=== PATIENT | female | born 1945 | race African-American/Black ===

== ENCOUNTER 2017-05-14 15:52 | Emergency (ER) | payer OTHER ==
[2017-05-14 16:43] LABS: Absolute Lymphocytes (CBC) 0.7 K/uL (0.7-4.9); Absolute Monocytes 0.6 K/uL (0.1-1.3); Basophils % 1.1 % (0-1.3); Eosinophils % 2.6 % (0-4.4); Hematocrit 38.8 % (36.0-45.0); Lymphocytes % 16.5 % (15.3-44.8); MCH 30.5 pg (27.0-35.0); MCV 93.1 fL (80-100); MPV 10.7 fL (7.6-11.3); Monocytes % 13.7 % (3.3-12.3); RBC Red Blood Cell Count 4.17 M/uL (3.86-4.86)
[2017-05-14 16:47] LABS: Potassium 4.5 mEq/L (3.6-5.0)
[2017-05-14 16:50] LABS: Albumin 4.1 g/dL (3.2-5.5); Bilirubin Total 0.5 mg/dL (0.3-1.2); Protein, Total 7.4 g/dL (6.0-8.3); Uric Acid 2.1 mg/dL (2.6-8.0)
--- NOTE | 2017-05-14 17:33 | ER ---
Nurse's Notes [facility] Name: Sangita Hendrix Age: 71 yrs Sex: Female : 1945 Arrival Date: 05/14/2017 Time: 15:53 Bed 12 Private MD: Nam Alexander R Diagnosis: Inflammatory Arthritis. Left foot pain. Presentation: 05/14 15:55 Presenting complaint: Patient states: "I have swollen foot pain. My daughter says I lk1 have gout.". Transition of care: patient was not received from another setting of care. Onset of symptoms was April 30, 2017. Care prior to arrival: None. 15:55 Method Of Arrival: Ambulatory lk1 15:55 Acuity: MADISYN 3 lk1 Triage Assessment: 15:57 General: Appears in no apparent distress. Behavior is calm, cooperative, appropriate lk1 for age. Pain: Complains of pain in left foot Pain currently is 10 out of 10 on a pain scale. Historical: - Allergies: 15:57 PENICILLINS; lk1 - PMHx: 15:57 BRADYCARDIA; CHF; Diabetes - IDDM; Gout; Pacemaker; lk1 - PSHx: 15:57 Hysterectomy; back surgery; lk1 - Immunization history:: Adult Immunizations up to date. - Social history:: Smoking status: Patient/guardian denies using tobacco. Screenin:27 Abuse screen: Denies threats or abuse. Denies injuries from another. Nutritional aj1 screening: No deficits noted. Tuberculosis screening: No symptoms or risk factors identified. 17:58 Fall Risk None identified. aj1 Assessment: 16:27 General: Appears in no apparent distress. uncomfortable, Behavior is calm, cooperative, aj1 appropriate for age. Pain: Complains of pain in left foot Pain does not radiate. Pain currently is 10 out of 10 on a pain scale. Quality of pain is described as aching, sharp. Neuro: Level of Consciousness is awake, alert, obeys commands, Oriented to person, place, time, situation, Speech is normal, Facial symmetry appears normal. Cardiovascular: Patient's skin is warm and dry. Respiratory: Airway is patent Respiratory effort is even, unlabored, Respiratory pattern is regular, symmetrical. GI: No signs and/or symptoms were reported involving the gastrointestinal system. : No signs and/or symptoms were reported regarding the genitourinary system. EENT: No signs and/or symptoms were reported regarding the EENT system. Derm: Skin is normal. Musculoskeletal: Capillary refill < 3 seconds, in left toes. Range of motion: intact in all extremities. 17:22 Reassessment: Patient appears in no apparent distress at this time. No changes from aj1 previously documented assessment. Patient and/or family updated on plan of care and expected duration. Pain level reassessed. Patient is alert, oriented x 3, equal unlabored respirations, skin warm/dry/pink. Vital Signs: 15:57 BP 153 / 69; Pulse 79; Resp 16; Temp 97.0(TE); Pulse Ox 96% on R/A; Weight 81.65 kg lk1 (R); Height 5 ft. 5 in. (165.10 cm) (R); Pain 10/10; 17:21 BP 165 / 72; Pulse 82; Resp 18; Pulse Ox 95% on R/A; aj1 15:57 Body Mass Index 29.95 (81.65 kg, 165.10 cm) lk1 ED Course: 15:53 Patient arrived in ED. as 15:53 Nam Alexander MD is Private Physician. as 15:56 Triage completed. lk1 16:00 Arm band placed on right wrist. lk1 16:01 Kev Russ MD is Attending Physician. ps1 16:02 Rita Ray, ANAMARIA is Primary Nurse. aj1 16:25 Initial lab(s) drawn, by ms, sent to lab. Inserted saline lock: 22 gauge in left iw antecubital area, using aseptic technique. Blood collected. 16:27 Patient has correct armband on for positive identification. aj1 16:27 No provider procedures requiring assistance completed. aj1 17:31 Nam Alexander MD is Referral Physician. ps1 17:58 Patient did not have IV access during this emergency room visit. aj1 19:10 IV discontinued, intact, bleeding controlled, No redness/swelling at site. Pressure tl3 dressing applied. Administered Medications: No medications were administered Outcome: 17:32 Discharge ordered by . ps1 17:58 Discharged to home ambulatory. aj1 17:58 Condition: good 17:58 Discharge instructions given to patient, Instructed on discharge instructions, follow up and referral plans. medication usage, Demonstrated understanding of instructions, follow-up care, medications, Prescriptions given X 2. 17:59 Patient left the ED. aj1 Signatures: Rita Ray RN RN aj1 Brigitte Wilkins Irene, RN RN Meagan Garay, RN RN lk1 Kev Russ MD MD ps1 Shanelle Hyatt RN RN tl3
--- NOTE | 2017-05-14 17:33 | EDPHYS ---
Physician Documentation [facility] Name: Sangita Hendrix Age: 71 yrs Sex: Female : 1945 Arrival Date: 05/14/2017 Time: 15:53 Bed 12 Private MD: Nam Alexander R ED Physician Kev Russ HPI: 05/15 16:48 This 71 yrs old Black Female presents to ER via Ambulatory with complaints of Feet ps1 Swelling. 16:48 The patient presents with pain, that is chronic, swelling, tenderness. The complaints ps1 affect the left foot. Context: resulted from a chronic condition, the patient is able to ambulate, Problem is a result from a previous injury: No. hx of reported gout. Does not have tophaceous growths. Has intermittent pain but this episode has been going on for a couple of weeks. She went to her primary care physician and wrote for allopurinol for acute attack. States that it has not worked and she needs something else. . Treatment prior to arrival includes: Allopurinol. Severity of symptoms: At their worst the symptoms were moderate. The patient has experienced similar episodes in the past. The patient has been recently seen by a physician: the patient's primary care provider. Historical: - Allergies: 05/14 15:57 PENICILLINS; lk1 - PMHx: 15:57 BRADYCARDIA; CHF; Diabetes - IDDM; Gout; Pacemaker; lk1 - PSHx: 15:57 Hysterectomy; back surgery; lk1 - Immunization history:: Adult Immunizations up to date. - Social history:: Smoking status: Patient/guardian denies using tobacco. ROS: 05/15 16:48 Constitutional: Negative for fever, chills, and weight loss, Eyes: Negative for injury, ps1 pain, redness, and discharge, Cardiovascular: Negative for chest pain, palpitations, and edema, Respiratory: Negative for shortness of breath, cough, wheezing, and pleuritic chest pain, Abdomen/GI: Negative for abdominal pain, nausea, vomiting, diarrhea, and constipation, Back: Negative for injury and pain, Skin: Negative for injury, rash, and discoloration, Neuro: Negative for headache, weakness, numbness, tingling, and seizure. MS/extremity: Positive for swelling, tenderness, warmth, of the dorsum of left foot. Exam: 16:48 Constitutional: This is a well developed, well nourished patient who is awake, alert, ps1 and in no acute distress. Head/Face: Normocephalic, atraumatic. Eyes: Pupils equal round and reactive to light, extra-ocular motions intact. Lids and lashes normal. Conjunctiva and sclera are non-icteric and not injected. ENT: Nares patent. No nasal discharge, no septal abnormalities noted. Tympanic membranes are normal and external auditory canals are clear. Oropharynx with no redness, swelling, or masses, exudates, or evidence of obstruction, uvula midline. Mucous membranes moist. Cardiovascular: Regular rate and rhythm. No gallops, murmurs, or rubs. Normal PMI, no JVD. No pulse deficits. Respiratory: Lungs have equal breath sounds bilaterally, clear to auscultation and percussion. No rales, rhonchi or wheezes noted. No increased work of breathing, no retractions or nasal flaring. Abdomen/GI: Soft, non-tender, with normal bowel sounds. No distension or tympany. No guarding or rebound. No evidence of tenderness throughout. Skin: Warm, dry with normal turgor. Normal color with no rashes, no lesions, and no evidence of cellulitis. 16:48 Musculoskeletal/extremity: Extremities: grossly normal except: noted in the dorsum of left foot: erythema, pain, swelling, tenderness. Vital Signs: 05/14 15:57 BP 153 / 69; Pulse 79; Resp 16; Temp 97.0(TE); Pulse Ox 96% on R/A; Weight 81.65 kg lk1 (R); Height 5 ft. 5 in. (165.10 cm) (R); Pain 10/10; 17:21 BP 165 / 72; Pulse 82; Resp 18; Pulse Ox 95% on R/A; aj1 15:57 Body Mass Index 29.95 (81.65 kg, 165.10 cm) lk1 MDM: 16:08 Patient medically screened. ps1 05/15 16:48 Data reviewed: vital signs, nurses notes. ED course: labs and imaging reviewed. No ps1 underlying infectious etiology or emergent condition. Should follow up with PCP for on going care and plan of treatment for acute attacks as well as maintenance medication regimens. Stable for discharge. . 05/14 16:08 Order name: CBC with Diff; Complete Time: 17:30 ps1 05/14 16:08 Order name: CMP; Complete Time: 16:51 ps1 05/14 16:08 Order name: Uric Acid; Complete Time: 16:51 ps1 05/14 16:08 Order name: ESR; Complete Time: 17:30 ps1 Administered Medications: No medications were administered Disposition: 05/14/17 17:32 Discharged to Home. Impression: Inflammatory Arthritis. Left foot pain. . - Condition is Stable. - Discharge Instructions: Arthritis, Nonspecific. - Prescriptions for Anaprox DS 550 mg Oral Tablet - take 1 tablet by ORAL route every 12 hours As needed; 20 tablet. Medrol (Nicholas) 4 mg Oral Tablets, Dose Pack - take 1 tablet by ORAL route as directed - follow package instructions; 1 packet. - Medication Reconciliation Form, Thank You Letter, Antibiotic Education, Prescription Opioid Use form. - Follow up: Nam Alexander MD; When: As needed; Reason: Recheck today's complaints, Continuance of care, Re-evaluation by your physician. Follow up: Emergency Department; When: As needed; Reason: Fever > 102 F, Worsening of condition. - Problem is an ongoing problem. - Symptoms have worsened. Signatures: Dispatcher [employer] Rita Mg RN RN aj1 Meagan Paredes RN RN lk1 Kev Russ MD MD ps1
[2017-05-14 18:08] VITALS: TEMP 98.2
[2017-05-14 18:09] VITALS: BP 208/88; O2SAT 99
== END 2017-05-14 17:59 | disposition home or self-care (01) ==
LOC: ER 15:52
DX: M13.872 Other specified arthritis, left ankle and foot; Z88.0 Allergy status to penicillin; Z95.0 Presence of cardiac pacemaker; I50.9 Heart failure, unspecified
CPT/HCPCS: 36415; 80053; 84550; 85025; 85652; 99283

== ENCOUNTER 2017-05-29 19:31 | Observation (INO) | payer OTHER ==
[2017-05-29] MEDS ORDERED: FAMOTIDINE 20 MG/2 ML VIAL IV ONE (20:52)
[2017-05-29] MEDS ORDERED: NA CHLORIDE 0.9% 1,000 ML ONE (20:52)
[2017-05-29] MEDS ORDERED: ONDANSETRON 4 MG/2 ML VIAL ONE (20:52)
[2017-05-29 21:20] LABS: Absolute Lymphocytes (CBC) 0.3 K/uL (0.7-4.9); Absolute Monocytes 0.5 K/uL (0.1-1.3); Absolute Neutrophil 5.6 K/uL (1.8-8.0); Basophils % 0.5 % (0-1.3); Eosinophils % 1.2 % (0-4.4); Hematocrit 41.1 % (36.0-45.0); MCH 30.6 pg (27.0-35.0); MCV 93.2 fL (80-100); MPV 10.8 fL (7.6-11.3); Monocytes % 7.8 % (3.3-12.3); RBC Red Blood Cell Count 4.41 M/uL (3.86-4.86)
[2017-05-29 21:24] LABS: Protime INR 1.11
--- NOTE | 2017-05-29 21:51 | RAD REPORT ---
EXAM DESCRIPTION: CT - Abdomen Pelvis Wo Contrast - 05/29/2017 9:27 pm CLINICAL HISTORY: Abdominal pain with nausea, vomiting and diarrhea COMPARISON: 2016 TECHNIQUE: Computed axial tomography of the abdomen and pelvis was obtained. IV and oral contrast we re not requested. All CT scans are performed using dose optimization technique as appropriate and may include automated exposure control or mA/KV adjustment according to patient size. FINDINGS: The evaluation of solid organs, vessels and bowel is limited secondary to the lack of con trast administration. The liver, spleen, pancreas, adrenals and kidneys appear grossly normal. There is no evidence of diverticulitis. A hysterectomy has been performed. IMPRESSION: No acute abnormality is displayed.
--- NOTE | 2017-05-29 21:53 | RAD REPORT ---
EXAM DESCRIPTION: Mis Single View05/29/2017 9:22 pm CLINICAL HISTORY: abd pain COMPARISON: April 2017 FINDINGS: The lungs appear clear of acute infiltrate. The heart is mildly enlarged. Pacemaker lead is in place IMPRESSION: No acute abnormalities displayed
[2017-05-29 21:55] LABS: Platelet Estimate ADEQ; Potassium 4.6 mEq/L (3.6-5.0); Urine White Blood Cell Casts OK
[2017-05-29 21:56] LABS: Anisocytosis SLIGHT; Blood Morphology Comment NOTED (NOT SEEN); Poikilocytosis SLIGHT
[2017-05-29 22:02] LABS: Albumin 4.1 g/dL (3.2-5.5); Bilirubin Direct 0.1 mg/dL (0-0.2); Bilirubin Total 0.6 mg/dL (0.3-1.2); Magnesium 2.2 mg/dL (1.8-2.5); Protein, Total 7.2 g/dL (6.0-8.3)
[2017-05-29 22:05] LABS: CKMB Creatine Kinase MB 1.6 ng/ml (0.3-4.0)
[2017-05-29 22:05] LABS: Urine Blood TRACE (NEG); Urine Glucose NEGATIVE (NEG); Urine Protein 2+ (NEG); Urine pH 6.5 (5.0-7.0)
--- NOTE | 2017-05-29 22:26 | EDPHYS ---
Physician Documentation [facility] Name: Sangita Hendrix Age: 71 yrs Sex: Female : 1945 Arrival Date: 05/29/2017 Time: 19:34 Bed 24 Private MD: Nam Alexander R ED Physician Sukumar Correa HPI: 05/29 20:45 This 71 yrs old Black Female presents to ER via Ambulatory with complaints of Headache, ranjan Vomiting/Diarrhea. 20:45 The patient complains of pain to the forehead. ranjan Historical: - Allergies: 19:42 PENICILLINS; aa1 - Home Meds: 19:42 allopurinol 300 mg Oral tab 1 tab once daily [Active]; Coreg 6.25 mg Oral tab 1 tab aa1 [Active]; Lantus Sub-Q 100 unit/mL [Active]; Lasix 40 mg Oral tab 1 tab 2 times per day [Active]; potassium chloride 20 mEq Oral TbER 1 tab once daily [Active]; - PMHx: 19:42 BRADYCARDIA; CHF; Diabetes - IDDM; Gout; Pacemaker; aa1 - PSHx: 19:42 Hysterectomy; back surgery; aa1 - Immunization history:: Flu vaccine is up to date. - Social history:: Smoking status: Patient/guardian denies using tobacco. ROS: 20:46 Constitutional: Negative for fever, chills, and weight loss, Eyes: Negative for injury, ranjan pain, redness, and discharge, ENT: Negative for injury, pain, and discharge, Neck: Negative for injury, pain, and swelling, Cardiovascular: Negative for chest pain, palpitations, and edema, Respiratory: Negative for shortness of breath, cough, wheezing, and pleuritic chest pain, Back: Negative for injury and pain, : Negative for injury, bleeding, discharge, and swelling, MS/Extremity: Negative for injury and deformity, Skin: Negative for injury, rash, and discoloration, Neuro: Negative for headache, weakness, numbness, tingling, and seizure, Psych: Negative for depression, anxiety, suicide ideation, homicidal ideation, and hallucinations, Allergy/Immunology: Negative for hives, rash, and allergies, Endocrine: Negative for neck swelling, polydipsia, polyuria, polyphagia, and marked weight changes, Hematologic/Lymphatic: Negative for swollen nodes, abnormal bleeding, and unusual bruising. 20:46 Abdomen/GI: Negative for abdominal pain, nausea and vomiting, diarrhea. Exam: 20:46 Constitutional: This is a well developed, well nourished patient who is awake, alert, ranjan and in no acute distress. Head/Face: Normocephalic, atraumatic. Eyes: Pupils equal round and reactive to light, extra-ocular motions intact. Lids and lashes normal. Conjunctiva and sclera are non-icteric and not injected. Cornea within normal limits. Periorbital areas with no swelling, redness, or edema. ENT: Nares patent. No nasal discharge, no septal abnormalities noted. Tympanic membranes are normal and external auditory canals are clear. Oropharynx with no redness, swelling, or masses, exudates, or evidence of obstruction, uvula midline. Mucous membranes moist. Neck: Trachea midline, no thyromegaly or masses palpated, and no cervical lymphadenopathy. Supple, full range of motion without nuchal rigidity, or vertebral point tenderness. No Meningismus. Chest/axilla: Normal chest wall appearance and motion. Nontender with no deformity. No lesions are appreciated. Cardiovascular: Regular rate and rhythm with a normal S1 and S2. No gallops, murmurs, or rubs. Normal PMI, no JVD. No pulse deficits. Respiratory: Lungs have equal breath sounds bilaterally, clear to auscultation and percussion. No rales, rhonchi or wheezes noted. No increased work of breathing, no retractions or nasal flaring. Back: No spinal tenderness. No costovertebral tenderness. Full range of motion. Female : Normal external genitalia. Skin: Warm, dry with normal turgor. Normal color with no rashes, no lesions, and no evidence of cellulitis. MS/ Extremity: Pulses equal, no cyanosis. Neurovascular intact. Full, normal range of motion. Neuro: Awake and alert, GCS 15, oriented to person, place, time, and situation. Cranial nerves II-XII grossly intact. Motor strength 5/5 in all extremities. Sensory grossly intact. Cerebellar exam normal. Normal gait. Psych: Awake, alert, with orientation to person, place and time. Behavior, mood, and affect are within normal limits. 20:46 Abdomen/GI: Inspection: distension, Bowel sounds: normal, Palpation: mild abdominal tenderness, in the epigastric area, right upper quadrant and left upper quadrant, Liver: no appreciated palpable abnormalities, Hernia: not appreciated. Vital Signs: 19:42 BP 137 / 60; Pulse 66; Resp 18; Temp 98.3; Pulse Ox 97% on R/A; Weight 86.18 kg; Height aa1 5 ft. 4 in. (162.56 cm); Pain 10/10; 21:49 BP 128 / 62; Pulse 60; Resp 18; Pulse Ox 99% on R/A; Pain 0/10; ao 22:58 BP 136 / 65; Pulse 67; Resp 16; Pulse Ox 100% ; ao 19:42 Body Mass Index 32.61 (86.18 kg, 162.56 cm) aa1 MDM: 20:38 Patient medically screened. [facility] 20:47 Data reviewed: vital signs, nurses notes, lab test result(s), EKG, radiologic studies, [facility] CT scan, plain films. 05/29 20:45 Order name: Basic Metabolic Panel; Complete Time: 22:22 [facility] 05/29 20:45 Order name: BNP [facility] 05/29 20:45 Order name: CBC with Diff; Complete Time: 22:22 [facility] 05/29 20:45 Order name: Ckmb; Complete Time: 22:22 [facility] 05/29 20:45 Order name: CPK; Complete Time: 22:22 [facility] 05/29 20:45 Order name: LFT's; Complete Time: 22:22 [facility] 05/29 20:45 Order name: Magnesium; Complete Time: 22:22 [facility] 05/29 20:45 Order name: PT-INR; Complete Time: 22:22 [facility] 05/29 20:45 Order name: Ptt, Activated; Complete Time: 22:22 [facility] 05/29 20:45 Order name: Troponin (emerg Dept Use Only); Complete Time: 22:22 [facility] 05/29 20:45 Order name: Lipase; Complete Time: 22:22 [facility] 05/29 20:45 Order name: Urine Culture [facility] 05/29 20:45 Order name: Blood Culture Adult (2) [facility] 05/29 21:27 Order name: CBC Smear Scan; Complete Time: 22:22 [facility] 05/29 20:45 Order name: XRAY Chest (1 view); Complete Time: 22:22 [facility] 05/29 20:45 Order name: EKG; Complete Time: 20:46 [facility] 05/29 20:45 Order name: CT Abd/Pelvis - Without Cont; Complete Time: 22:22 [facility] 05/29 21:52 Order name: Urine Dipstick--Ancillary (enter results); Complete Time: 22:22 05/29 22:31 Order name: Basic Metabolic Panel [facility] 05/29 22:31 Order name: Basic Metabolic Panel [facility] 05/29 22:31 Order name: CBC with Automated Diff [facility] 05/29 22:31 Order name: CBC with Automated Diff [facility] 05/29 22:31 Order name: Lipase [facility] 05/29 22:31 Order name: Lipase [facility] 05/29 22:31 Order name: Liver (Hepatic) Function [facility] 05/29 22:31 Order name: Liver (Hepatic) Function [facility] 05/29 20:45 Order name: Cardiac monitoring; Complete Time: 21:06 [facility] 05/29 20:45 Order name: EKG - Nurse/Tech; Complete Time: 21:06 [facility] 05/29 20:45 Order name: IV Saline Lock; Complete Time: 21:06 [facility] 05/29 20:45 Order name: Labs collected and sent; Complete Time: 21: [facility] 05/29 20:45 Order name: O2 Per Protocol; Complete Time: 21:07 [facility] 05/29 20:45 Order name: O2 Sat Monitoring; Complete Time: 21: [facility] 05/29 20:45 Order name: Urine Dipstick-Ancillary (obtain specimen); Complete Time: 21:50 [facility] 05/29 22:31 Order name: NPO EDTN Administered Medications: 21:08 Drug: NS 0.9% 500 ml Route: IV; Rate: bolus; Site: left antecubital; ao 22:00 Follow up: IV Status: Completed infusion; IV Intake: 500ml ao 21:10 Drug: Zofran 4 mg Route: IVP; Site: left antecubital; ao 22:26 Follow up: Response: No adverse reaction ao 21:10 Drug: Pepcid 20 mg Route: IVP; Site: left antecubital; ao 22:26 Follow up: Response: No adverse reaction ao 22:27 Drug: NS 0.9% 1000 ml Route: IV; Rate: 125 ml/hr; Site: left antecubital; ao 23:00 Follow up: IV Status: Infusion continued upon admission ao Disposition: 05/29/17 22:25 Hospitalization ordered by Nam Alexander for Observation. Preliminary diagnosis are Vomiting, Diarrhea, unspecified, Abdominal tenderness, Unspecified kidney failure, Type 2 diabetes mellitus. - Bed requested for Telemetry/MedSurg (observation). - Status is Observation. ao - Condition is Fair. - Problem is new. - Symptoms have improved. UTI on Admission? No Signatures: Dispatcher [employer] EDMS Brittni Burton RN Michelle Cox RN RN aa1 Sukumar Correa MD MD cha Ortiz, Alex RN ANAMARIA ao
--- NOTE | 2017-05-29 22:26 | ER ---
Nurse's Notes [facility] Name: Sangita Hendrix Age: 71 yrs Sex: Female : 1945 Arrival Date: 05/29/2017 Time: 19:34 Bed 24 Private MD: Nam Alexander R Diagnosis: Vomiting;Diarrhea, unspecified;Abdominal tenderness;Unspecified kidney failure;Type 2 diabetes mellitus Presentation: 05/29 19:40 Presenting complaint: Patient states: N/V/D since 1600 this afternoon. Reports vomited aa1 x 2. Also c/o CULLEN but states she has not taken anything OTC for it yet. Transition of care: patient was not received from another setting of care. Onset of symptoms was May 29, 2017. Care prior to arrival: None. 19:40 Method Of Arrival: Ambulatory aa1 19:40 Acuity: MADISYN 3 aa1 Triage Assessment: 19:42 General: Appears in no apparent distress. comfortable, Behavior is calm, cooperative, aa1 appropriate for age. 20:18 Headache History: The patient has had previous headaches. Pain: Pain currently is 8 out ao of 10 on a pain scale. Pain began 4 hours ago. Also complains of no other associated symptoms. Neuro: Level of Consciousness is awake, alert, obeys commands. Historical: - Allergies: 19:42 PENICILLINS; aa1 - Home Meds: 19:42 allopurinol 300 mg Oral tab 1 tab once daily [Active]; Coreg 6.25 mg Oral tab 1 tab aa1 [Active]; Lantus Sub-Q 100 unit/mL [Active]; Lasix 40 mg Oral tab 1 tab 2 times per day [Active]; potassium chloride 20 mEq Oral TbER 1 tab once daily [Active]; - PMHx: 19:42 BRADYCARDIA; CHF; Diabetes - IDDM; Gout; Pacemaker; aa1 - PSHx: 19:42 Hysterectomy; back surgery; aa1 - Immunization history:: Flu vaccine is up to date. - Social history:: Smoking status: Patient/guardian denies using tobacco. Screenin:18 Abuse screen: Denies threats or abuse. Denies injuries from another. Nutritional ao screening: No deficits noted. Tuberculosis screening: No symptoms or risk factors identified. Fall Risk None identified. Assessment: 20:19 General: Appears in no apparent distress. uncomfortable, Behavior is appropriate for ao age, anxious. Pain: Complains of pain in heache. Neuro: Level of Consciousness is awake, obeys commands, Oriented to person, place, time, situation, Manager Of Product are equal bilaterally Moves all extremities. Speech is normal. Cardiovascular: Patient's skin is warm and dry. Respiratory: Airway is patent Respiratory effort is even, unlabored, Respiratory pattern is regular, symmetrical. GI: Abdomen is non-distended. : No signs and/or symptoms were reported regarding the genitourinary system. EENT: No signs and/or symptoms were reported regarding the EENT system. Derm: Skin is intact. Musculoskeletal: Circulation, motion, and sensation intact. Range of motion: intact in all extremities. 21:49 Reassessment: Patient appears in no apparent distress at this time. Patient and/or ao family updated on plan of care and expected duration. Pain level reassessed. Patient is alert, oriented x 3, equal unlabored respirations, skin warm/dry/pink. 22:58 Reassessment: Patient appears in no apparent distress at this time. Patient and/or ao family updated on plan of care and expected duration. Pain level reassessed. Patient is alert, oriented x 3, equal unlabored respirations, skin warm/dry/pink. Waiting on room assignment. Vital Signs: 19:42 BP 137 / 60; Pulse 66; Resp 18; Temp 98.3; Pulse Ox 97% on R/A; Weight 86.18 kg; Height aa1 5 ft. 4 in. (162.56 cm); Pain 10/10; 21:49 BP 128 / 62; Pulse 60; Resp 18; Pulse Ox 99% on R/A; Pain 0/10; ao 22:58 BP 136 / 65; Pulse 67; Resp 16; Pulse Ox 100% ; ao 19:42 Body Mass Index 32.61 (86.18 kg, 162.56 cm) aa1 ED Course: 19:34 Patient arrived in ED. as 19:34 Nam Alexander MD is Private Physician. as 19:41 Triage completed. aa1 19:42 Arm band placed on left wrist. aa1 20:18 Paul Joaquin, RN is Primary Nurse. ao 20:18 Patient has correct armband on for positive identification. Pulse ox on. NIBP on. ao 20:38 Sukumar Correa MD is Attending Physician. ranjan 21:00 EKG done, by ED staff, reviewed by Sukumar Correa MD. cc 21:21 X-ray completed. Portable x-ray completed in exam room. Patient tolerated procedure kc2 well. 21:22 XRAY Chest (1 view) In Process Unspecified. EDMS 21:[address] via stretcher. nj 21:27 CT Abd/Pelvis - Without Cont In Process Unspecified. EDMS 21:27 CT completed. Patient tolerated procedure well. nj 21:27 Patient moved back from CT. nj 21:35 Second set of blood cultures drawn by me, Urine collected: clean catch specimen, clear. cc 21:45 Inserted saline lock: 20 gauge in left antecubital area, using aseptic technique. Blood ao collected. 22:24 Nam Alexander MD is Hospitalizing Provider. [facility] 05/30 00:11 No provider procedures requiring assistance completed. Patient admitted, IV remains in ao place. intact, bleeding controlled, No redness/swelling at site. Pressure dressing applied. Administered Medications: 05/29 21:08 Drug: NS 0.9% 500 ml Route: IV; Rate: bolus; Site: left antecubital; ao 22:00 Follow up: IV Status: Completed infusion; IV Intake: 500ml ao 21:10 Drug: Zofran 4 mg Route: IVP; Site: left antecubital; ao 22:26 Follow up: Response: No adverse reaction ao 21:10 Drug: Pepcid 20 mg Route: IVP; Site: left antecubital; ao 22:26 Follow up: Response: No adverse reaction ao 22:27 Drug: NS 0.9% 1000 ml Route: IV; Rate: 125 ml/hr; Site: left antecubital; ao 23:00 Follow up: IV Status: Infusion continued upon admission ao Intake: 22:00 IV: 500ml; Total: 500ml. ao Outcome: 22:25 Decision to Hospitalize by Provider. [facility] 05/30 00:12 Admitted to Tele accompanied by tech, room 424, with chart, Report called to jose armando Do LVN Condition: stable 00:13 Patient left the ED. ao Signatures: Dispatcher [employer] EDMS Michelle Almendarez RN RN aa1 Sukumar Correa MD MD cha Martinez, Amelia as Christian, Chelsea cc Ortiz, Alex, RN RN ao Carr, Kelsie kc2 Anatoliy Craft
[2017-05-29] MEDS ORDERED: ACETAMINOPHEN 500 MG TAB PO PRN (22:28)
[2017-05-29] MEDS ORDERED: ONDANSETRON 4 MG/2 ML VIAL IV PRN (22:28)
[2017-05-29] MEDS ORDERED: FENTANYL CITR 100 MCG/2 ML IV PRN (22:29)
[2017-05-30] MEDS: NA CHLORIDE 0.9% 1,000 ML IV SCH ×2 (00:42→07:00)
[2017-05-30 00:53] VITALS: O2SAT 100
[2017-05-30 01:03] VITALS: BMI 33.8
[2017-05-30 05:37] LABS: Absolute Lymphocytes (CBC) 0.5 K/uL (0.7-4.9); Absolute Monocytes 0.6 K/uL (0.1-1.3); Absolute Neutrophil 4.8 K/uL (1.8-8.0); Basophils % 0.4 % (0-1.3); Eosinophils % 1.7 % (0-4.4); Hematocrit 39.3 % (36.0-45.0); Lymphocytes % 7.7 % (15.3-44.8); MCH 30.4 pg (27.0-35.0); MCV 94.3 fL (80-100); MPV 11.2 fL (7.6-11.3); Monocytes % 10.4 % (3.3-12.3); RBC Red Blood Cell Count 4.17 M/uL (3.86-4.86)
[2017-05-30 06:11] LABS: Albumin 3.6 g/dL (3.2-5.5); Bilirubin Direct 0.1 mg/dL (0-0.2); Bilirubin Total 0.6 mg/dL (0.3-1.2); Potassium 4.4 mEq/L (3.6-5.0); Protein, Total 6.5 g/dL (6.0-8.3)
--- NOTE | 2017-05-30 07:02 | EKG ---
Test Date: 2017-05-29 Test Time: 21:02:17 Director Of Home Health Services: ELDON MEASUREMENT RESULTS: Intervals: Rate: 67 MA: 198 QRSD: 110 QT: 478 QTc: 505 [place]: P: 69 MA: 198 QRS: -11 T: 87 INTERPRETIVE STATEMENTS: Normal sinus rhythm Septal infarct, age undetermined Abnormal ECG Compared to ECG 04/25/2017 20:00:11 No significant changes Electronically Signed On 05-30-17 07:01:29 CDT by Geraldo Callahan
[2017-05-30] MEDS ORDERED: HYDROCODONE/APAP 7.5/325 MG TAB PO PRN (08:41)
[2017-05-30] MEDS ORDERED: GLUCAGON 1 MG/VIAL IM PRN (08:52)
[2017-05-30] MEDS ORDERED: D50W 25 GM/50 ML SYRINGE IV PRN (08:52)
[2017-05-30] MEDS ORDERED: FUROSEMIDE 40 MG TABLET PO SCH (09:00)
[2017-05-30] MEDS ORDERED: FAMOTIDINE 20 MG/2 ML VIAL IV SCH (09:00)
[2017-05-30] MEDS ORDERED: CARVEDILOL 6.25 MG TAB PO SCH (09:00)
[2017-05-30] MEDS ORDERED: AMIODARONE HCL 200 MG TAB PO SCH (09:00)
[2017-05-30] MEDS ORDERED: SACUBITRIL/VALSARTAN 24/26 MG TAB PO SCH (09:00)
[2017-05-30] MEDS ORDERED: ALLOPURINOL 300 MG TAB PO SCH (09:00)
[2017-05-30] MEDS ORDERED: DONEPEZIL HCL 5 MG TAB PO SCH (09:00)
[2017-05-30] MEDS ORDERED: POTASSIUM CL SA 10 MEQ TAB PO SCH (09:00)
[2017-05-30] MEDS ORDERED: FAMOTIDINE 20 MG TAB PO SCH (09:45)
[2017-05-30] MEDS: INSULIN -REGULAR HUMAN 50 UNIT/0.5 ML ML SQ SCH ×2 (11:30→16:30)
[2017-05-30 16:34] VITALS: BP 149/50; TEMP 97.4
--- NOTE | 2017-05-31 02:25 | HP ---
Date of Admission: 05/29/2017 Chief Complaint: Nausea, vomiting, and diarrhea. History Of Present Illness: A 71-year-old female, who was brought to the emergency room. She was ev aluated with a CAT scan and blood work and admitted for observation. The patient denied any history of vomiting of blood. No history of blood in her stools. No history of fever, chills, or rigors. Past Medical History: Extensive, includes history of severe congestive heart failure, type 2 diabete s, hypertension, and gout. Family History: Hypertension. Personal History: Nonsmoker. Allergies: PENICILLIN. Review of Systems: No history of fever, chills, rigors, or chest pain. Physical Examination: General: Revealed a 71-year-old female, anxious. HEENT: Otherwise negative. Neck: Supple. JVD negative. Chest: Clear. Heart: Occasional irregularity noted. Abdomen: Soft. Bowel sounds present. Extremities: No edema. Laboratory Data: BUN 28, creatinine 1.47. White count normal. CAT scan of the abdomen, no acute fi ndings. Assessment: 1.Gastroenteritis. 2.Chronic renal insufficiency. 3.Congestive heart failure. 4.Type 2 diabetes. 5.Gout. Plan: The patient received some IV fluids. She is already feeling better. She is tolerating diet. She will be discharge today. RODO Voice ID: [id number]
== END 2017-05-30 17:00 | disposition home or self-care (01) ==
LOC: ER 19:31 → 4TH 23:58
PROVIDERS: ADMIT Internal Medicine; ATTEND Internal Medicine
DX: K52.9 Noninfective gastroenteritis and colitis, unspecified (principal); I13.0 Hypertensive heart and chronic kidney disease with heart failure and stage 1 through stage 4 chronic kidney disease, or unspecified chronic kidney disease; E11.22 Type 2 diabetes mellitus with diabetic chronic kidney disease; N18.9 Chronic kidney disease, unspecified; I50.9 Heart failure, unspecified; M10.9 Gout, unspecified; Z88.0 Allergy status to penicillin
CPT/HCPCS: 36415; 71045; 74176; 80048 ×2; 80076 ×2; 81003; 82550; 82553; 82962 ×3; 83690 ×2; 83735; 83880; 84484; 85025 ×2; 85610; 85730; 87040 ×2; 87086; 87088; 93005; 96361; 96374; 96375; 99285; G0378 ×2; J2405; J3010; J7030 ×2

== ENCOUNTER 2017-10-29 15:38 | Emergency (ER) | payer OTHER ==
[2017-10-29] MEDS ORDERED: ONDANSETRON 4 MG (ODT) TAB ONE (16:18)
[2017-10-29] MEDS ORDERED: FLUCONAZOLE 100 MG TAB ONE (16:18)
[2017-10-29] MEDS ORDERED: HYDROCODONE/APAP 5/325 MG TAB ONE (16:18)
--- NOTE | 2017-10-29 16:47 | RAD REPORT ---
EXAM DESCRIPTION: RAD - Foot Left 3 View - 10/29/2017 4:35 pm CLINICAL HISTORY: SWELLING COMPARISON: Foot Left 3 View dated 04/13/2016 FINDINGS: Diffuse osteopenia is noted. Small sclerotic erosions are present along the medial aspect of the first MTP joint and second MTP joint. Although nonspecific, this can be seen in gout. No fract ure or dislocation is seen. Prominent calcaneal spurs are evident.
--- NOTE | 2017-10-29 16:49 | EDPHYS ---
Physician Documentation [facility] Name: Sangita Hendrix Age: 72 yrs Sex: Female : 1945 Arrival Date: 10/29/2017 Time: 15:42 Bed 16 Private MD: Nam Alexander R ED Physician Sukumar Correa HPI: 10/29 16:11 This 72 yrs old Black Female presents to ER via Ambulatory with complaints of Foot Pain.snw 16:11 The patient presents with pain, a rash, vesicular. The complaints affect the dorsum of snw left foot. Context: The problem was sustained at home, resulted from an unknown cause, the patient can fully bear weight, the patient is able to ambulate. Onset: The symptoms/episode began/occurred gradually, 1 week(s) ago, and became persistent. Associated signs and symptoms: The patient has no apparent associated signs or symptoms. Severity of symptoms: At their worst the symptoms were moderate. pt has had gout in the past, states "this is not gout". It is unknown whether or not the patient has recently seen a physician. Historical: - Allergies: 15:47 PENICILLINS; hj - Home Meds: 15:47 Coreg 6.25 mg Oral tab 1 tab [Active]; Lantus Sub-Q 100 unit/mL [Active]; Lasix 40 mg hj Oral tab 1 tab 2 times per day [Active]; potassium chloride 20 mEq Oral TbER 1 tab once daily [Active]; Entresto 24-26 mg oral tab daily [Active]; acetaminophen-codeine 300-30 mg Oral tab 1 tab every 4 hours [Active]; - PMHx: 15:47 BRADYCARDIA; CHF; Diabetes - IDDM; Pacemaker; hj - PSHx: 15:47 Hysterectomy; back surgery; hj - Immunization history:: Adult Immunizations up to date. - Social history:: Smoking status: Patient/guardian denies using tobacco, Patient/guardian denies using alcohol. - Ebola Screening: : Patient negative for fever greater than or equal to 101.5 degrees Fahrenheit, and additional compatible Ebola Virus Disease symptoms Patient denies exposure to infectious person Patient denies travel to an Ebola-affected area in the 21 days before illness onset. ROS: 16:09 Constitutional: Negative for fever, chills, and weight loss, Eyes: Negative for injury, snw pain, redness, and discharge, ENT: Negative for injury, pain, and discharge, Neck: Negative for injury, pain, and swelling, Cardiovascular: Negative for chest pain, palpitations, and edema, Respiratory: Negative for shortness of breath, cough, wheezing, and pleuritic chest pain, Abdomen/GI: Negative for abdominal pain, nausea, vomiting, diarrhea, and constipation, Back: Negative for injury and pain, : Negative for injury, bleeding, discharge, and swelling, MS/Extremity: Negative for injury and deformity, Skin: Negative for injury and discoloration, + itching, burning pain to left foot x 1 week Neuro: Negative for headache, weakness, numbness, tingling, and seizure. Exam: 16:08 Constitutional: This is a well developed, well nourished patient who is awake, alert, snw and in no acute distress. Head/Face: Normocephalic, atraumatic. Eyes: Pupils equal round and reactive to light, extra-ocular motions intact. Lids and lashes normal. Conjunctiva and sclera are non-icteric and not injected. Cornea within normal limits. Periorbital areas with no swelling, redness, or edema. ENT: Nares patent. No nasal discharge, no septal abnormalities noted. Tympanic membranes are normal and external auditory canals are clear. Oropharynx with no redness, swelling, or masses, exudates, or evidence of obstruction, uvula midline. Mucous membranes moist. Neck: Trachea midline, no thyromegaly or masses palpated, and no cervical lymphadenopathy. Supple, full range of motion without nuchal rigidity, or vertebral point tenderness. No Meningismus. Chest/axilla: Normal chest wall appearance and motion. Nontender with no deformity. No lesions are appreciated. Cardiovascular: Regular rate and rhythm with a normal S1 and S2. No gallops, murmurs, or rubs. Normal PMI, no JVD. No pulse deficits. Respiratory: Lungs have equal breath sounds bilaterally, clear to auscultation and percussion. No rales, rhonchi or wheezes noted. No increased work of breathing, no retractions or nasal flaring. Abdomen/GI: Soft, non-tender, with normal bowel sounds. No distension or tympany. No guarding or rebound. No evidence of tenderness throughout. Back: No spinal tenderness. No costovertebral tenderness. Full range of motion. Skin: Warm, dry with normal turgor. Normal color with no lesions, and no evidence of cellulitis. + tiny fluid filled blisters to dorsum of left foot MS/ Extremity: Pulses equal, no cyanosis. Neurovascular intact. Full, normal range of motion. Neuro: Awake and alert, GCS 15, oriented to person, place, time, and situation. Cranial nerves II-XII grossly intact. Motor strength 5/5 in all extremities. Sensory grossly intact. Cerebellar exam normal. Normal gait. Psych: Awake, alert, with orientation to person, place and time. Behavior, mood, and affect are within normal limits. Vital Signs: 15:48 BP 142 / 100; Pulse 67; Resp 18; Temp 97.8(TE); Pulse Ox 100% on R/A; Weight 95.25 kg; hj Height 5 ft. 4 in. (162.56 cm); Pain 10/10; 16:20 BP 136 / 55; Pulse 58; Resp 18; Pulse Ox 100% on R/A; Pain 10/10; em 15:48 Body Mass Index 36.04 (95.25 kg, 162.56 cm) hj MDM: 15:53 Patient medically screened. snw 16:51 Data reviewed: vital signs, nurses notes. Data interpreted: Pulse oximetry: on room air snw is 100 %. Interpretation: normal. Counseling: I had a detailed discussion with the patient and/or guardian regarding: the historical points, exam findings, and any diagnostic results supporting the discharge/admit diagnosis, the presence of at least one elevated blood pressure reading (>120/80) during this emergency department visit, radiology results, the need for outpatient follow up, to return to the emergency department if symptoms worsen or persist or if there are any questions or concerns that arise at home. Special discussion: I have referred the patient to see his PCP for further evaluation of high blood pressure. I discussed in detail with the patient the higher chance of wound infection based on his presenting history. Based on the history and exam findings, there is no indication for further emergent testing or inpatient evaluation. I discussed with the patient/guardian the need to see the primary care provider for further evaluation of the symptoms. 10/29 15:54 Order name: Foot Left 3 View XRAY; Complete Time: 16:52 snw Administered Medications: 16:17 Drug: DiFLUcan 150 mg Route: PO; em 17:12 Follow up: Response: No adverse reaction em 16:17 Drug: [place] 5 mg-325 mg 1 tabs Route: PO; em 17:13 Follow up: Response: No adverse reaction; Pain is decreased em 16:18 Drug: Zofran 4 mg Route: PO; em 17:12 Follow up: Response: No adverse reaction em Disposition: 10/30 06:47 Co-signature as Attending Physician, Sukumar Correa MD I agree with the assessment and ranjan plan of care. Disposition: 18 16:48 Discharged to Home. Impression: Pain in left foot, Tinea pedis. - Condition is Stable. - Discharge Instructions: Athlete's Foot, Musculoskeletal Pain, Paresthesia, Foot Pain. - Prescriptions for Fluconazole 150 mg Oral Tablet - take 1 tablet by ORAL route one time Take on 11/05/17; 1 tablet. - Medication Reconciliation Form, Thank You Letter, Antibiotic Education, Prescription Opioid Use form. - Follow up: Nam Alexander MD; When: 1 - 2 days; Reason: Recheck today's complaints, Continuance of care, Re-evaluation by your physician. Follow up: Emergency Department; When: As needed; Reason: Worsening of condition. Signatures: Dispatcher [employer] Sukumar Velez MD MD cha Therrien, Shelly, FOX RAISER-C FOX RAISER-Razw Toro Suh, BRAID MAKER BRAID MAKER Carlos Horn RN RN hj Corrections: (The following items were deleted from the chart) 10/29 16:11 16:08 Constitutional: This is a well developed, well nourished patient who is awake, snw alert, and in no acute distress. Head/Face: Normocephalic, atraumatic. Eyes: Pupils equal round and reactive to light, extra-ocular motions intact. Lids and lashes normal. Conjunctiva and sclera are non-icteric and not injected. Cornea within normal limits. Periorbital areas with no swelling, redness, or edema. ENT: Nares patent. No nasal discharge, no septal abnormalities noted. Tympanic membranes are normal and external auditory canals are clear. Oropharynx with no redness, swelling, or masses, exudates, or evidence of obstruction, uvula midline. Mucous membranes moist. Neck: Trachea midline, no thyromegaly or masses palpated, and no cervical lymphadenopathy. Supple, full range of motion without nuchal rigidity, or vertebral point tenderness. No Meningismus. Chest/axilla: Normal chest wall appearance and motion. Nontender with no deformity. No lesions are appreciated. Cardiovascular: Regular rate and rhythm with a normal S1 and S2. No gallops, murmurs, or rubs. Normal PMI, no JVD. No pulse deficits. Respiratory: Lungs have equal breath sounds bilaterally, clear to auscultation and percussion. No rales, rhonchi or wheezes noted. No increased work of breathing, no retractions or nasal flaring. Abdomen/GI: Soft, non-tender, with normal bowel sounds. No distension or tympany. No guarding or rebound. No evidence of tenderness throughout. Back: No spinal tenderness. No costovertebral tenderness. Full range of motion. Skin: Warm, dry with normal turgor. Normal color with no rashes, no lesions, and no evidence of cellulitis. MS/ Extremity: Pulses equal, no cyanosis. Neurovascular intact. Full, normal range of motion. Neuro: Awake and alert, GCS 15, oriented to person, place, time, and situation. Cranial nerves II-XII grossly intact. Motor strength 5/5 in all extremities. Sensory grossly intact. Cerebellar exam normal. Normal gait. Psych: Awake, alert, with orientation to person, place and time. Behavior, mood, and affect are within normal limits. snw 17:12 16:48 10/29/2017 16:48 Discharged to Home. Impression: Pain in left foot; Tinea pedis. em Condition is Stable. Forms are Medication Reconciliation Form, Thank You Letter, Antibiotic Education, Prescription Opioid Use. Follow up: Nam Alexander; When: 1 - 2 days; Reason: Recheck today's complaints, Continuance of care, Re-evaluation by your physician. Follow up: Emergency Department; When: As needed; Reason: Worsening of condition. snw
--- NOTE | 2017-10-29 16:49 | ER ---
Nurse's Notes [facility] Name: Sangita Hendrix Age: 72 yrs Sex: Female : 1945 Arrival Date: 10/29/2017 Time: 15:42 Bed 16 Private MD: Nam Alexander R Diagnosis: Pain in left foot;Tinea pedis Presentation: 10/29 15:44 Presenting complaint: Patient states: i started having pain on my L foot for a week hj now, it is itchy too, i scratched it and it has blisters now; reports swelling; reports fever; denies N/V;. Transition of care: patient was not received from another setting of care. Onset of symptoms was October 29, 2017. Risk Assessment: Do you want to hurt yourself or someone else? Patient reports no desire to harm self or others. Initial Sepsis Screen: Does the patient meet any 2 criteria? No. Patient's initial sepsis screen is negative. Does the patient have a suspected source of infection? No. Patient's initial sepsis screen is negative. Care prior to arrival: None. 15:44 Method Of Arrival: Ambulatory 15:44 Acuity: MADISYN 4 hj Triage Assessment: 15:48 General: Appears in no apparent distress. uncomfortable, Behavior is calm, cooperative, hj appropriate for age. Pain: Complains of pain in left foot. Historical: - Allergies: 15:47 PENICILLINS; hj - Home Meds: 15:47 Coreg 6.25 mg Oral tab 1 tab [Active]; Lantus Sub-Q 100 unit/mL [Active]; Lasix 40 mg hj Oral tab 1 tab 2 times per day [Active]; potassium chloride 20 mEq Oral TbER 1 tab once daily [Active]; Entresto 24-26 mg oral tab daily [Active]; acetaminophen-codeine 300-30 mg Oral tab 1 tab every 4 hours [Active]; - PMHx: 15:47 BRADYCARDIA; CHF; Diabetes - IDDM; Pacemaker; hj - PSHx: 15:47 Hysterectomy; back surgery; hj - Immunization history:: Adult Immunizations up to date. - Social history:: Smoking status: Patient/guardian denies using tobacco, Patient/guardian denies using alcohol. - Ebola Screening: : Patient negative for fever greater than or equal to 101.5 degrees Fahrenheit, and additional compatible Ebola Virus Disease symptoms Patient denies exposure to infectious person Patient denies travel to an Ebola-affected area in the 21 days before illness onset. Screenin:48 Abuse screen: Denies threats or abuse. Denies injuries from another. Nutritional hj screening: No deficits noted. Tuberculosis screening: No symptoms or risk factors identified. Fall Risk None identified. Assessment: 16:00 General: Appears in no apparent distress. comfortable, Behavior is calm, cooperative. em Pain: Complains of pain in dorsum of left foot and left foot Pain currently is 10 out of 10 on a pain scale. Quality of pain is described as burning, itching. Neuro: Level of Consciousness is awake, alert, obeys commands, Oriented to person, place, time. Cardiovascular: Denies chest pain, Capillary refill < 3 seconds Patient's skin is warm and dry. Respiratory: Airway is patent Respiratory effort is even, unlabored, Respiratory pattern is regular, symmetrical. GI: Abdomen is flat, Patient currently denies nausea, vomiting. : No signs and/or symptoms were reported regarding the genitourinary system. EENT: No signs and/or symptoms were reported regarding the EENT system. Derm: Skin is intact, Skin is pink, warm \T\ dry. Musculoskeletal: Range of motion: intact in all extremities. 16:22 Reassessment: Patient appears in no apparent distress at this time. I agree with the sv above assessment. 17:11 Reassessment: Patient appears in no apparent distress at this time. Patient and/or em family updated on plan of care and expected duration. Pain level reassessed. Patient is alert, oriented x 3, equal unlabored respirations, skin warm/dry/pink. Patient states feeling better. Vital Signs: 15:48 BP 142 / 100; Pulse 67; Resp 18; Temp 97.8(TE); Pulse Ox 100% on R/A; Weight 95.25 kg; hj Height 5 ft. 4 in. (162.56 cm); Pain 10/10; 16:20 BP 136 / 55; Pulse 58; Resp 18; Pulse Ox 100% on R/A; Pain 10/10; em 15:48 Body Mass Index 36.04 (95.25 kg, 162.56 cm) ED Course: 15:42 Patient arrived in ED. rg4 15:43 Nam Alexander MD is Private Physician. rg4 15:45 Triage completed. hj 15:48 Arm band placed on right wrist. hj 15:48 Patient has correct armband on for positive identification. Bed in low position. Call hj light in reach. Side rails up X 1. 15:51 Toro Suh LVN is Primary Nurse. em 15:53 Erika Roy FNP-C [facility]. snw 15:53 Sukumar Correa MD is Attending Physician. snw 16:24 No provider procedures requiring assistance completed. Patient did not have IV access em during this emergency room visit. 16:32 X-ray completed. Portable x-ray completed in exam room. Patient tolerated procedure bb2 well. 16:34 Foot Left 3 View XRAY In Process Unspecified. EDMS 16:47 Nam Alexander MD is Referral Physician. snw Administered Medications: 16:17 Drug: DiFLUcan 150 mg Route: PO; em 17:12 Follow up: Response: No adverse reaction em 16:17 Drug: [place] 5 mg-325 mg 1 tabs Route: PO; em 17:13 Follow up: Response: No adverse reaction; Pain is decreased em 16:18 Drug: Zofran 4 mg Route: PO; em 17:12 Follow up: Response: No adverse reaction em Outcome: 16:48 Discharge ordered by . snw 17:11 Discharged to home ambulatory. em 17:11 Condition: good 17:11 Discharge instructions given to patient, Instructed on discharge instructions, follow up and referral plans. medication usage, Demonstrated understanding of instructions, follow-up care, medications, Prescriptions given X 1. 17:12 Patient left the ED. em Signatures: Dispatcher [employer] EDAZ Danica Silva, RN RN Erika Roy FNP-C BODY CARE MANAGER-Csnw Toro Suh LVN WORKERS COMPENSATION COORDINATOR em Carlos Horn RN RN hj Garcia, Rubi rg4 Barbi Cohen bb2 Corrections: (The following items were deleted from the chart) 15:51 15:48 Pulse 67bpm; Resp 18bpm; Pulse Ox 100% RA; Temp 97.8F Temporal; 95.25 kg; Height hj 5 ft. 4 in.; BMI: 36.0; Pain 10/10; hj
[2017-10-29 17:23] VITALS: TEMP 97.8; O2SAT 100
[2017-10-29 17:25] VITALS: BP 136/55
== END 2017-10-29 17:12 | disposition home or self-care (01) ==
LOC: ER 15:38
DX: B35.3 Tinea pedis (principal); E11.9 Type 2 diabetes mellitus without complications; I50.9 Heart failure, unspecified; Z79.4 Long term (current) use of insulin; Z88.0 Allergy status to penicillin; Z95.0 Presence of cardiac pacemaker
CPT/HCPCS: 99283

== ENCOUNTER 2019-03-21 14:22 | Emergency (ER) | payer OTHER ==
--- OUTSIDE RECORDS SUMMARY | 2019-03-21 14:26 | XMS REPORT ---
:1945 [facility] Address [address] [place] [address] Dr. Diop [address] [place] [id number] Care Team Providers Name Role Phone MORRIS NUNN Unavailable Unavailable Problems This patient has no known problems. Allergies, Adverse Reactions, Alerts This patient has no known allergies or adverse reactions. Medications This patient has no known medications. Results Test Description Test Time Test Comments Text Results Atomic Results Result Comments POCT-GLUCOSE METER 2019-01-16 11:39:00 Test Item Value Reference Range Comments POC-GLUCOSE METER (BEAKER) 100 mg/dL 70-110 : TESTED AT [address] (test nqpu=7807) [place], [address]: Driller Multiple Spindle/Sound Equipment Mechanic [id number] for KAYDEN BOZENA CBC W/PLT COUNT & AUTO [id number] 10:30:00 Test Item Value Reference Range Comments WHITE BLOOD CELL COUNT (BEAKER) (test nybe=488) 6.6 K/ L 3.5-10.5 RED BLOOD CELL COUNT (BEAKER) (test thzw=134) 2.77 M/ L 3.93-5.22 HEMOGLOBIN (BEAKER) (test estg=848) 8.2 GM/DL 11.2-15.7 HEMATOCRIT (BEAKER) (test bxtp=146) 26.6 % 34.1-44.9 MEAN CORPUSCULAR VOLUME (BEAKER) (test zcgs=357) 96.0 fL 79.4-94.8 MEAN CORPUSCULAR HEMOGLOBIN (BEAKER) (test 29.6 pg 25.6-32.2 pchp=277) MEAN CORPUSCULAR HEMOGLOBIN CONC (BEAKER) (test 30.8 GM/DL 32.2-35.5 ldwf=391) RED CELL DISTRIBUTION WIDTH (BEAKER) (test 14.9 % 11.7-14.4 kuzs=268) PLATELET COUNT (BEAKER) (test nsez=450) 202 K/CU MM 150-450 MEAN PLATELET VOLUME (BEAKER) (test dwhj=772) 11.4 fL 9.4-12.3 NUCLEATED RED BLOOD CELLS (BEAKER) (test 0 /100 WBC 0-0 yrja=927) (CELLAVISION MANUAL DIFF)2019-01-16 10:30:00 Test Item Value Reference Range Comments NEUTROPHILS - REL (CELLAVISION)(BEAKER) (test 59 % gwet=3157) LYMPHOCYTES - REL (CELLAVISION)(BEAKER) (test 25 % ftzv=6277) MONOCYTES - REL (CELLAVISION)(BEAKER) (test 9 % iwyj=0786) EOSINOPHILS - REL (CELLAVISION)(BEAKER) (test 1 % uere=7406) MYELOCYTES - REL (CELLAVISION)(BEAKER) (test 1 % 0-0 nxcb=4776) BANDS - REL (CELLAVISION)(BEAKER) (test ypwn=2398) 4 % 0-10 NEUTROPHILS - ABS (CELLAVISION)(BEAKER) (test 3.89 K/ul 1.56-6.13 ccsk=8060) LYMPHOCYTES - ABS (CELLAVISION)(BEAKER) (test 1.65 K/ul 1.18-3.74 pcmp=0047) MONOCYTES - ABS (CELLAVISION)(BEAKER) (test 0.59 K/uL 0.24-0.36 nvve=9896) EOSINOPHILS - ABS (CELLAVISION)(BEAKER) (test 0.07 K/uL 0.04-0.36 tljz=2761) MYELOCYTES-ABS (CELLAVISION)(BEAKER) (test 0.07 K/uL 0.00-0.00 spvb=0714) BANDS - ABS (CELLAVISION)(BEAKER) (test bpbl=4036) 0.26 K/uL 0.00-0.80 TOTAL COUNTED (BEAKER) (test vwze=0312) 100 PLT MORPHOLOGY (BEAKER) (test lfdj=374) Normal HYPERSEGMENTATION (CELLAVISION)(BEAKER) (test Present hdil=1926) HYPOCHROMIA (BEAKER) (test xznm=781) 1+ few ANISOCYTOSIS (BEAKER) (test hjop=572) 1+ few MACROCYTES (BEAKER) (test wfbx=560) 1+ few ARTIFACT (CELLAVISION)(BEAKER) (test qlks=3678) Present PLATELET CONCENTRATION (CELLAVISION)(BEAKER) (test Adequate mfyk=4416) Received comment: User comments: Slide comments:POCT-GLUCOSE [id number] 08: 27:00 Test Item Value Reference Range Comments POC-GLUCOSE METER (BEAKER) 90 mg/dL 70-110 : TESTED AT [place] [id number] [facility] (test ndbd=5468) [facility], [address]: Driller Multiple Spindle/Sound Equipment Mechanic IU=[id number] for BOZENA MONIQUE BASIC METABOLIC [id number] 05:15:00 Test Item Value Reference Range Comments SODIUM (BEAKER) (test 142 meq/L 136-145 bkpq=272) POTASSIUM (BEAKER) (test 4.0 meq/L 3.5-5.1 stcy=322) CHLORIDE (BEAKER) (test 112 meq/L 98-107 btgf=453) CO2 (BEAKER) (test 25 meq/L 22-29 wele=838) BLOOD UREA NITROGEN 13 mg/dL 7-21 (BEAKER) (test utjw=343) CREATININE (BEAKER) (test 1.28 mg/dL 0.57-1.25 xgkr=354) GLUCOSE RANDOM (BEAKER) 89 mg/dL 70-105 (test qyow=622) CALCIUM (BEAKER) (test 8.9 mg/dL 8.4-10.2 ndqc=581) EGFR (BEAKER) (test 50 mL/min/1.73 sq m ESTIMATED GFR IS NOT nyxb=0636) ACCURATE CREATININE CLEARANCE IN PREDICTING GLOMERULAR FILTRATION RATE. ESTIMATED GFR IS NOT APPLICABLE FOR DIALYSIS PATIENTS. POCT-GLUCOSE [id number] 20:27:00 Test Item Value Reference Range Comments POC-GLUCOSE METER (BEAKER) 119 mg/dL 70-110 : TESTED AT [facility] [address] [facility] (test atwe=0687) [facility], [address]: Driller Multiple Spindle/Sound Equipment Mechanic [id number] for MoonJeffery POCT-GLUCOSE [id number] 17:11:00 Test Item Value Reference Range Comments POC-GLUCOSE METER (BEAKER) 122 mg/dL 70-110 : TESTED AT [address] (test viaf=5938) [facility], [address]: Driller Multiple Spindle/Sound Equipment Mechanic [id number] for EcatKassieella POCT-GLUCOSE [id number] 13:01:00 Test Item Value Reference Range Comments POC-GLUCOSE METER (BEAKER) 113 mg/dL 70-110 : TESTED AT [address] (test rrar=0960) [facility], [address]: Driller Multiple Spindle/Sound Equipment Mechanic VH=[id number] for ANA PICHARDO POCT-GLUCOSE [id number] 08:45:00 Test Item Value Reference Range Comments POC-GLUCOSE METER (BEAKER) 98 mg/dL 70-110 : TESTED AT [address] (test fbsh=3934) [facility], [address]: Driller Multiple Spindle/Sound Equipment Mechanic GP=[id number] for MARINOANA POCT-GLUCOSE [id number] 21:07:00 Test Item Value Reference Range Comments POC-GLUCOSE METER (BEAKER) 84 mg/dL 70-110 : TESTED AT [address] (test sajc=7196) [facility], [address]: Driller Multiple Spindle/Sound Equipment Mechanic [id number] for Pk Hammonds POCT-GLUCOSE [id number] 16:47:00 Test Item Value Reference Range Comments POC-GLUCOSE METER (BEAKER) 108 mg/dL 70-110 : TESTED AT [address] (test lnst=9841) [facility], [address]: Driller Multiple Spindle/Sound Equipment Mechanic [id number] for Dustin, Mainwitha POCT-GLUCOSE [id number] 15:12:00 Test Item Value Reference Range Comments POC-GLUCOSE METER (BEAKER) 118 mg/dL 70-110 : TESTED AT [address] (test wmig=7004) [facility], [address]: Driller Multiple Spindle/Sound Equipment Mechanic GL=[id number] for RODGER REYNA POCT-GLUCOSE [id number] 15:04:00 Test Item Value Reference Range Comments POC-GLUCOSE METER (BEAKER) 127 mg/dL 70-110 : TESTED AT [address] (test xfil=6561) [facility], [address]: Driller Multiple Spindle/Sound Equipment Mechanic JG=[id number] for DUSTIN, HIWITHA POCT-GLUCOSE [id number] 14:34:00 Test Item Value Reference Range Comments POC-GLUCOSE METER (BEAKER) 89 mg/dL 70-110 : TESTED AT [address] (test eqfm=8971) [facility], [address]: Driller Multiple Spindle/Sound Equipment Mechanic GS=[id number] for CICI CHAN POCT-GLUCOSE [id number] 13:53:00 Test Item Value Reference Range Comments POC-GLUCOSE METER (BEAKER) 137 mg/dL 70-110 : TESTED AT [address] (test kvsj=6288) [facility], [address]: Driller Multiple Spindle/Sound Equipment Mechanic HS=[id number] for Ryne Chana POCT-GLUCOSE [id number] 12:44:00 Test Item Value Reference Range Comments POC-GLUCOSE METER (BEAKER) 125 mg/dL 70-110 : TESTED AT [address] (test uggb=7362) [facility], [address]: Driller Multiple Spindle/Sound Equipment Mechanic LL=[id number] for MIKAEL KELSEYY POCT-GLUCOSE [id number] 08:33:00 Test Item Value Reference Range Comments POC-GLUCOSE METER (BEAKER) 112 mg/dL 70-110 : TESTED AT [address] (test mwfs=4936) [facility], [address]: Driller Multiple Spindle/Sound Equipment Mechanic [id number] for ANA PICHARDO POCT-GLUCOSE [id number] 07:56:00 Test Item Value Reference Range Comments POC-GLUCOSE METER (BEAKER) 96 mg/dL 70-110 : TESTED AT [address] (test eqnx=9963) [facility], [address]: Driller Multiple Spindle/Sound Equipment Mechanic TS=[id number] for Danica Kwong BASIC METABOLIC [id number] 07:07:00 Test Item Value Reference Range Comments SODIUM (BEAKER) (test 141 meq/L 136-145 nbuk=310) POTASSIUM (BEAKER) (test 3.8 meq/L 3.5-5.1 qyfn=871) CHLORIDE (BEAKER) (test 112 meq/L 98-107 uebe=868) CO2 (BEAKER) (test 25 meq/L 22-29 wxym=575) BLOOD UREA NITROGEN 17 mg/dL 7-21 (BEAKER) (test zcwr=465) CREATININE (BEAKER) (test 1.25 mg/dL 0.57-1.25 bnuc=070) GLUCOSE RANDOM (BEAKER) 94 mg/dL 70-105 (test itdv=261) CALCIUM (BEAKER) (test 8.6 mg/dL 8.4-10.2 mahz=384) EGFR (BEAKER) (test 51 mL/min/1.73 sq m ESTIMATED GFR IS NOT thou=9285) ACCURATE CREATININE CLEARANCE IN PREDICTING GLOMERULAR FILTRATION RATE. ESTIMATED GFR IS NOT APPLICABLE FOR DIALYSIS PATIENTS. CBC W/PLT COUNT & AUTO [id number] 06:52:00 Test Item Value Reference Range Comments WHITE BLOOD CELL COUNT (BEAKER) (test mfgu=828) 4.8 K/ L 3.5-10.5 RED BLOOD CELL COUNT (BEAKER) (test zbro=734) 2.92 M/ L 3.93-5.22 HEMOGLOBIN (BEAKER) (test ehyc=418) 8.6 GM/DL 11.2-15.7 HEMATOCRIT (BEAKER) (test zhpy=135) 27.9 % 34.1-44.9 MEAN CORPUSCULAR VOLUME (BEAKER) (test osqp=098) 95.5 fL 79.4-94.8 MEAN CORPUSCULAR HEMOGLOBIN (BEAKER) (test 29.5 pg 25.6-32.2 qacu=816) MEAN CORPUSCULAR HEMOGLOBIN CONC (BEAKER) (test 30.8 GM/DL 32.2-35.5 ekab=193) RED CELL DISTRIBUTION WIDTH (BEAKER) (test 14.7 % 11.7-14.4 gccc=833) PLATELET COUNT (BEAKER) (test vuiu=938) 130 K/CU MM 150-450 MEAN PLATELET VOLUME (BEAKER) (test tlzv=686) 12.0 fL 9.4-12.3 NUCLEATED RED BLOOD CELLS (BEAKER) (test 0 /100 WBC 0-0 xpdi=758) NEUTROPHILS RELATIVE PERCENT (BEAKER) (test 64 % qsjr=517) LYMPHOCYTES RELATIVE PERCENT (BEAKER) (test 20 % djly=196) MONOCYTES RELATIVE PERCENT (BEAKER) (test 11 % jfwd=061) EOSINOPHILS RELATIVE PERCENT (BEAKER) (test 3 % seao=831) BASOPHILS RELATIVE PERCENT (BEAKER) (test 1 % thaq=422) NEUTROPHILS ABSOLUTE COUNT (BEAKER) (test 3.07 K/ L 1.56-6.13 kjdb=089) LYMPHOCYTES ABSOLUTE COUNT (BEAKER) (test 0.97 K/ L 1.18-3.74 xkst=063) MONOCYTES ABSOLUTE COUNT (BEAKER) (test 0.52 K/ L 0.24-0.36 lpam=091) EOSINOPHILS ABSOLUTE COUNT (BEAKER) (test 0.13 K/ L 0.04-0.36 pkrp=257) BASOPHILS ABSOLUTE COUNT (BEAKER) (test 0.05 K/ L 0.01-0.08 qylo=733) IMMATURE GRANULOCYTES-RELATIVE PERCENT (BEAKER) 2 % 0-1 (test ejov=0064) POCT-GLUCOSE [id number] 21:36:00 Test Item Value Reference Range Comments POC-GLUCOSE METER (BEAKER) 143 mg/dL 70-110 : TESTED AT [address] (test gmlc=9982) [facility], [address]: Driller Multiple Spindle/Sound Equipment Mechanic [id number] for VIOLETA REYNAO POCT-GLUCOSE [id number] 19:20:00 Test Item Value Reference Range Comments POC-GLUCOSE METER (BEAKER) 117 mg/dL 70-110 : TESTED AT [address] (test vklz=6100) [facility], [address]: Driller Multiple Spindle/Sound Equipment Mechanic UP=[id number] for RAJ REYNAENZO POCT-GLUCOSE [id number] 09:30:00 Test Item Value Reference Range Comments POC-GLUCOSE METER (BEAKER) 100 mg/dL 70-110 : TESTED AT [address] (test fhiw=1050) [facility], [address]: Driller Multiple Spindle/Sound Equipment Mechanic AK=[id number] for ANA PICHARDO BASIC METABOLIC [id number] 05:18:00 Test Item Value Reference Range Comments SODIUM (BEAKER) (test 140 meq/L 136-145 qqre=019) POTASSIUM (BEAKER) (test 3.9 meq/L 3.5-5.1 inxr=245) CHLORIDE (BEAKER) (test 111 meq/L 98-107 cmlh=723) CO2 (BEAKER) (test 23 meq/L 22-29 zciw=014) BLOOD UREA NITROGEN 20 mg/dL 7-21 (BEAKER) (test mscb=991) CREATININE (BEAKER) (test 1.36 mg/dL 0.57-1.25 onep=749) GLUCOSE RANDOM (BEAKER) 111 mg/dL 70-105 (test iulw=161) CALCIUM (BEAKER) (test 8.8 mg/dL 8.4-10.2 tppn=199) EGFR (BEAKER) (test 46 mL/min/1.73 sq m ESTIMATED GFR IS NOT gqpj=0775) ACCURATE CREATININE CLEARANCE IN PREDICTING GLOMERULAR FILTRATION RATE. ESTIMATED GFR IS NOT APPLICABLE FOR DIALYSIS PATIENTS. CBC W/PLT COUNT & AUTO [id number] 04:37:00 Test Item Value Reference Range Comments WHITE BLOOD CELL COUNT (BEAKER) (test xcft=490) 5.6 K/ L 3.5-10.5 RED BLOOD CELL COUNT (BEAKER) (test wrpk=879) 2.90 M/ L 3.93-5.22 HEMOGLOBIN (BEAKER) (test jiao=444) 8.7 GM/DL 11.2-15.7 HEMATOCRIT (BEAKER) (test tbcs=831) 28.0 % 34.1-44.9 MEAN CORPUSCULAR VOLUME (BEAKER) (test izhc=330) 96.6 fL 79.4-94.8 MEAN CORPUSCULAR HEMOGLOBIN (BEAKER) (test 30.0 pg 25.6-32.2 xtnt=599) MEAN CORPUSCULAR HEMOGLOBIN CONC (BEAKER) (test 31.1 GM/DL 32.2-35.5 vssv=726) RED CELL DISTRIBUTION WIDTH (BEAKER) (test 14.7 % 11.7-14.4 pfsg=981) PLATELET COUNT (BEAKER) (test wniv=350) 111 K/CU MM 150-450 MEAN PLATELET VOLUME (BEAKER) (test axxy=761) 12.5 fL 9.4-12.3 NUCLEATED RED BLOOD CELLS (BEAKER) (test 0 /100 WBC 0-0 koks=233) NEUTROPHILS RELATIVE PERCENT (BEAKER) (test 71 % irqo=791) LYMPHOCYTES RELATIVE PERCENT (BEAKER) (test 17 % fcqy=910) MONOCYTES RELATIVE PERCENT (BEAKER) (test 10 % dvzz=151) EOSINOPHILS RELATIVE PERCENT (BEAKER) (test 1 % ntix=533) BASOPHILS RELATIVE PERCENT (BEAKER) (test 1 % eslm=588) NEUTROPHILS ABSOLUTE COUNT (BEAKER) (test 3.96 K/ L 1.56-6.13 duei=346) LYMPHOCYTES ABSOLUTE COUNT (BEAKER) (test 0.93 K/ L 1.18-3.74 azkj=449) MONOCYTES ABSOLUTE COUNT (BEAKER) (test 0.53 K/ L 0.24-0.36 gqnc=155) EOSINOPHILS ABSOLUTE COUNT (BEAKER) (test 0.06 K/ L 0.04-0.36 jgwe=397) BASOPHILS ABSOLUTE COUNT (BEAKER) (test 0.03 K/ L 0.01-0.08 enga=385) IMMATURE GRANULOCYTES-RELATIVE PERCENT (BEAKER) 1 % 0-1 (test dpkv=1509) POCT-GLUCOSE [id number] 20:59:00 Test Item Value Reference Range Comments POC-GLUCOSE METER (BEAKER) 95 mg/dL 70-110 : TESTED AT [address] (test edpq=6378) [facility], [facility]: Driller Multiple Spindle/Sound Equipment Mechanic QP=[id number] for RODGER REYNA POCT-GLUCOSE [id number] 17:08:00 Test Item Value Reference Range Comments POC-GLUCOSE METER (BEAKER) 90 mg/dL 70-110 : TESTED AT [address] (test tayh=1974) [facility], [address]: Driller Multiple Spindle/Sound Equipment Mechanic [id number] for BELLE CAMACHO POCT-GLUCOSE [id number] 12:10:00 Test Item Value Reference Range Comments POC-GLUCOSE METER (BEAKER) 118 mg/dL 70-110 : TESTED AT [address] (test nkwd=7902) [facility], [address]: Driller Multiple Spindle/Sound Equipment Mechanic PZ=[id number] for BELLE CAMACHO U/S, RENAL, [id number] 10:37:00Reason for exam:->ckdFINAL REPORT TECHNIQUE: Grayscale ultrasound of the kidneys and bladder. INDICATION: 73-year-old woman with chronic kidney disease. COMPARISON: None. FINDINGS: RIGHT KIDNEY: Theright kidney measures 8.7 x 4.1 x 4.6 cm. Cortical thickness measures 1.1 cm. No solid mass lesions.No hydronephrosis. Renal artery and vein are patent. LEFT KIDNEY: The left kidney measures 9.7 x 4.2x 3.9 cm. Cortical thickness measures 1.7 cm. No solid mass lesions. No hydronephrosis. Renal arteryand vein are patent. BLADDER: Unremarkable. IMPRESSION:Unremarkable renal ultrasound. Signed: Silvio Montana MDReport Verified Date/Time: 01/11/2019 10:37:05 Reading Location: [id number] [place] [facility] Reading Room Electronically signed by: SILVIO MONTANA MD on 2018 10:37 AMPOCT-GLUCOSE [id number] 09:22:00 Test Item Value Reference Range Comments POC-GLUCOSE METER (BEAKER) 75 mg/dL 70-110 : TESTED AT [facility] [address] [facility] (test cice=5045) [facility], [address]: Driller Multiple Spindle/Sound Equipment Mechanic SC=[id number] for CICI CHAN [id number] 04:57:00 Test Item Value Reference Range Comments PHOSPHORUS (BEAKER) (test trqa=677) 2.8 mg/dL 2.3-4.7 [id number] 04:57:00 Test Item Value Reference Range Comments MAGNESIUM (BEAKER) (test ywkb=073) 1.9 mg/dL 1.6-2.6 BASIC METABOLIC [id number] 04:57:00 Test Item Value Reference Range Comments SODIUM (BEAKER) (test 137 meq/L 136-145 qsjm=870) POTASSIUM (BEAKER) (test 4.0 meq/L 3.5-5.1 ymet=104) CHLORIDE (BEAKER) (test 111 meq/L 98-107 lrtw=981) CO2 (BEAKER) (test 21 meq/L 22-29 zejh=038) BLOOD UREA NITROGEN 22 mg/dL 7-21 (BEAKER) (test vkpo=389) CREATININE (BEAKER) (test 1.38 mg/dL 0.57-1.25 upxk=898) GLUCOSE RANDOM (BEAKER) 81 mg/dL 70-105 (test fzeu=435) CALCIUM (BEAKER) (test 8.4 mg/dL 8.4-10.2 fbec=369) EGFR (BEAKER) (test 46 mL/min/1.73 sq m ESTIMATED GFR IS NOT wnqj=5271) ACCURATE CREATININE CLEARANCE IN PREDICTING GLOMERULAR FILTRATION RATE. ESTIMATED GFR IS NOT APPLICABLE FOR DIALYSIS PATIENTS. CBC W/PLT COUNT & AUTO [id number] 04:32:00 Test Item Value Reference Range Comments WHITE BLOOD CELL COUNT (BEAKER) (test hqpp=322) 6.9 K/ L 3.5-10.5 RED BLOOD CELL COUNT (BEAKER) (test zoty=471) 2.98 M/ L 3.93-5.22 HEMOGLOBIN (BEAKER) (test nruu=663) 8.9 GM/DL 11.2-15.7 HEMATOCRIT (BEAKER) (test mtur=251) 28.9 % 34.1-44.9 MEAN CORPUSCULAR VOLUME (BEAKER) (test nvat=743) 97.0 fL 79.4-94.8 MEAN CORPUSCULAR HEMOGLOBIN (BEAKER) (test 29.9 pg 25.6-32.2 frwm=293) MEAN CORPUSCULAR HEMOGLOBIN CONC (BEAKER) (test 30.8 GM/DL 32.2-35.5 uxqn=384) RED CELL DISTRIBUTION WIDTH (BEAKER) (test 15.0 % 11.7-14.4 qcrn=239) PLATELET COUNT (BEAKER) (test vhqy=276) 80 K/CU MM 150-450 MEAN PLATELET VOLUME (BEAKER) (test adoe=546) 12.5 fL 9.4-12.3 NUCLEATED RED BLOOD CELLS (BEAKER) (test 0 /100 WBC 0-0 ghom=809) NEUTROPHILS RELATIVE PERCENT (BEAKER) (test 78 % nkwi=760) LYMPHOCYTES RELATIVE PERCENT (BEAKER) (test 10 % wnwa=829) MONOCYTES RELATIVE PERCENT (BEAKER) (test 10 % ivon=091) EOSINOPHILS RELATIVE PERCENT (BEAKER) (test 1 % bale=346) BASOPHILS RELATIVE PERCENT (BEAKER) (test 0 % xosr=027) NEUTROPHILS ABSOLUTE COUNT (BEAKER) (test 5.44 K/ L 1.56-6.13 jgfc=197) LYMPHOCYTES ABSOLUTE COUNT (BEAKER) (test 0.72 K/ L 1.18-3.74 tjwg=864) MONOCYTES ABSOLUTE COUNT (BEAKER) (test dozc=495) 0.69 K/ L 0.24-0.36 EOSINOPHILS ABSOLUTE COUNT (BEAKER) (test 0.04 K/ L 0.04-0.36 pjtj=017) BASOPHILS ABSOLUTE COUNT (BEAKER) (test vfqk=350) 0.02 K/ L 0.01-0.08 IMMATURE GRANULOCYTES-RELATIVE PERCENT (BEAKER) 0 % 0-1 (test vydo=9767) POCT-GLUCOSE [id number] 22:26:00 Test Item Value Reference Range Comments POC-GLUCOSE METER (BEAKER) 95 mg/dL 70-110 : TESTED AT [facility] [address] [facility] (test ropz=6348) [facility], [address]: Driller Multiple Spindle/Sound Equipment Mechanic RF=[id number] for Beena Davis POCT-GLUCOSE [id number] 17:04:00 Test Item Value Reference Range Comments POC-GLUCOSE METER (BEAKER) 98 mg/dL 70-110 : TESTED AT [address] (test czek=1995) [facility], [address]: Driller Multiple Spindle/Sound Equipment Mechanic YH=[id number] for BELLE CAMACHO PTH, [id number] 16:02:00 Test Item Value Reference Range Comments PARATHYROID HORMONE INTACT (BEAKER) (test 200.6 pg/mL 8.5-72.5 dhbx=853) CBC W/PLT COUNT & AUTO [id number] 15:09:00 Test Item Value Reference Range Comments WHITE BLOOD CELL COUNT (BEAKER) (test srdm=095) 9.2 K/ L 3.5-10.5 RED BLOOD CELL COUNT (BEAKER) (test peri=705) 2.63 M/ L 3.93-5.22 HEMOGLOBIN (BEAKER) (test tlpz=178) 8.1 GM/DL 11.2-15.7 HEMATOCRIT (BEAKER) (test csmv=963) 25.6 % 34.1-44.9 MEAN CORPUSCULAR VOLUME (BEAKER) (test pcqy=398) 97.3 fL 79.4-94.8 MEAN CORPUSCULAR HEMOGLOBIN (BEAKER) (test 30.8 pg 25.6-32.2 rlem=342) MEAN CORPUSCULAR HEMOGLOBIN CONC (BEAKER) (test 31.6 GM/DL 32.2-35.5 diqc=859) RED CELL DISTRIBUTION WIDTH (BEAKER) (test 15.0 % 11.7-14.4 zsyu=019) PLATELET COUNT (BEAKER) (test fzlj=202) 71 K/CU MM 150-450 MEAN PLATELET VOLUME (BEAKER) (test vkbl=319) 12.3 fL 9.4-12.3 NUCLEATED RED BLOOD CELLS (BEAKER) (test 0 /100 WBC 0-0 epsy=185) NEUTROPHILS RELATIVE PERCENT (BEAKER) (test 80 % bsyw=017) LYMPHOCYTES RELATIVE PERCENT (BEAKER) (test 9 % tnkg=573) MONOCYTES RELATIVE PERCENT (BEAKER) (test 11 % mper=258) EOSINOPHILS RELATIVE PERCENT (BEAKER) (test 0 % diwu=255) BASOPHILS RELATIVE PERCENT (BEAKER) (test 0 % pauv=690) NEUTROPHILS ABSOLUTE COUNT (BEAKER) (test 7.31 K/ L 1.56-6.13 pulr=343) LYMPHOCYTES ABSOLUTE COUNT (BEAKER) (test 0.80 K/ L 1.18-3.74 esjy=884) MONOCYTES ABSOLUTE COUNT (BEAKER) (test kktp=558) 0.97 K/ L 0.24-0.36 EOSINOPHILS ABSOLUTE COUNT (BEAKER) (test 0.01 K/ L 0.04-0.36 zpqq=813) BASOPHILS ABSOLUTE COUNT (BEAKER) (test cqjr=094) 0.02 K/ L 0.01-0.08 IMMATURE GRANULOCYTES-RELATIVE PERCENT (BEAKER) 1 % 0-1 (test kxej=9541) POCT-GLUCOSE [id number] 11:53:00 Test Item Value Reference Range Comments POC-GLUCOSE METER (BEAKER) 132 mg/dL 70-110 : TESTED AT [address] (test xoox=5050) [facility], [address]: [employer] Equipment [employer] JO=[id number] for Cici Chan POCT-GLUCOSE [id number] 09:42:00 Test Item Value Reference Range Comments POC-GLUCOSE METER (BEAKER) 112 mg/dL 70-110 : TESTED AT [address] (test nlnn=0564) [facility], [address]: [employer] Equipment [employer] CX=[id number] for Cici Chan URIC [id number] 09:14:00 Test Item Value Reference Range Comments URIC ACID (BEAKER) (test xizp=514) 7.3 mg/dL 2.6-7.2 [id number] 06:14:00 Test Item Value Reference Range Comments PHOSPHORUS (BEAKER) (test pcjb=299) 2.8 mg/dL 2.3-4.7 [id number] 06:14:00 Test Item Value Reference Range Comments MAGNESIUM (BEAKER) (test jiuy=193) 1.9 mg/dL 1.6-2.6 BASIC METABOLIC [id number] 06:14:00 Test Item Value Reference Range Comments SODIUM (BEAKER) (test 138 meq/L 136-145 syvy=084) POTASSIUM (BEAKER) (test 4.0 meq/L 3.5-5.1 iryy=703) CHLORIDE (BEAKER) (test 111 meq/L 98-107 pcom=272) CO2 (BEAKER) (test 21 meq/L 22-29 otrn=504) BLOOD UREA NITROGEN 23 mg/dL 7-21 (BEAKER) (test mrip=812) CREATININE (BEAKER) (test 1.53 mg/dL 0.57-1.25 yose=534) GLUCOSE RANDOM (BEAKER) 134 mg/dL 70-105 (test zkxq=037) CALCIUM (BEAKER) (test 8.4 mg/dL 8.4-10.2 krui=152) EGFR (BEAKER) (test 40 mL/min/1.73 sq m ESTIMATED GFR IS NOT btmm=0253) ACCURATE CREATININE CLEARANCE IN PREDICTING GLOMERULAR FILTRATION RATE. ESTIMATED GFR IS NOT APPLICABLE FOR DIALYSIS PATIENTS. POCT-GLUCOSE [id number] 21:33:00 Test Item Value Reference Range Comments POC-GLUCOSE METER (BEAKER) 113 mg/dL 70-110 : TESTED AT [address] (test rwfy=1341) [facility], [address]: [employer] Equipment [employer]ic [id number] for RODGER REYNA POCT-GLUCOSE [id number] 17:16:00 Test Item Value Reference Range Comments POC-GLUCOSE METER (BEAKER) 113 mg/dL 70-110 : TESTED AT [address] (test sahn=6432) [facility], [address]: [employer] Equipment [employer]ic [id number] for RIDDHI LIAO POCT-GLUCOSE [id number] 12:17:00 Test Item Value Reference Range Comments POC-GLUCOSE METER (BEAKER) 166 mg/dL 70-110 : TESTED AT [address] (test whpe=5428) [facility], [address]: [employer]/Sound Equipment [employer]ic PZ=[id number] for YONNINA CHINTAN POCT-GLUCOSE [id number] 07:51:00 Test Item Value Reference Range Comments POC-GLUCOSE METER (BEAKER) 143 mg/dL 70-110 : TESTED AT [facility] [address] (test muqo=7099) [facility], [address]: [employer] Equipment [employer]ic [id number] for Neena Sewell [id number] 06:28:00 Test Item Value Reference Range Comments MAGNESIUM (BEAKER) (test 1.8 mg/dL 1.6-2.6 Specimen slightly hemolyzed gbed=677) [id number] 06:28:00 Test Item Value Reference Range Comments PHOSPHORUS (BEAKER) (test 2.5 mg/dL 2.3-4.7 Specimen slightly hemolyzed yhbc=221) BASIC METABOLIC [id number] 06:28:00 Test Item Value Reference Range Comments SODIUM (BEAKER) (test 139 meq/L 136-145 ikpf=660) POTASSIUM (BEAKER) (test 4.5 meq/L 3.5-5.1 Specimen slightly fxma=591) hemolyzed CHLORIDE (BEAKER) (test 112 meq/L 98-107 rziz=944) CO2 (BEAKER) (test 19 meq/L 22-29 ftrh=912) BLOOD UREA NITROGEN 21 mg/dL 7-21 (BEAKER) (test eyef=841) CREATININE (BEAKER) (test 1.38 mg/dL 0.57-1.25 Specimen slightly cxda=772) hemolyzed GLUCOSE RANDOM (BEAKER) 188 mg/dL 70-105 (test gjhm=701) CALCIUM (BEAKER) (test 8.4 mg/dL 8.4-10.2 mies=929) EGFR (BEAKER) (test 46 mL/min/1.73 sq m ESTIMATED GFR IS NOT anut=0393) ACCURATE CREATININE CLEARANCE IN PREDICTING GLOMERULAR FILTRATION RATE. ESTIMATED GFR IS NOT APPLICABLE FOR DIALYSIS PATIENTS. CBC W/PLT COUNT & AUTO [id number] 04:20:00 Test Item Value Reference Range Comments WHITE BLOOD CELL COUNT (BEAKER) (test nrik=164) 10.0 K/ L 3.5-10.5 RED BLOOD CELL COUNT (BEAKER) (test mgga=067) 3.47 M/ L 3.93-5.22 HEMOGLOBIN (BEAKER) (test qcma=650) 10.2 GM/DL 11.2-15.7 HEMATOCRIT (BEAKER) (test mnrt=673) 32.6 % 34.1-44.9 MEAN CORPUSCULAR VOLUME (BEAKER) (test kcxl=753) 93.9 fL 79.4-94.8 MEAN CORPUSCULAR HEMOGLOBIN (BEAKER) (test 29.4 pg 25.6-32.2 hdbi=048) MEAN CORPUSCULAR HEMOGLOBIN CONC (BEAKER) (test 31.3 GM/DL 32.2-35.5 fhhs=678) RED CELL DISTRIBUTION WIDTH (BEAKER) (test 14.6 % 11.7-14.4 ewlc=207) PLATELET COUNT (BEAKER) (test iimk=374) 121 K/CU MM 150-450 MEAN PLATELET VOLUME (BEAKER) (test nhip=591) 12.9 fL 9.4-12.3 NUCLEATED RED BLOOD CELLS (BEAKER) (test 0 /100 WBC 0-0 apjy=874) NEUTROPHILS RELATIVE PERCENT (BEAKER) (test 84 % iyhw=173) LYMPHOCYTES RELATIVE PERCENT (BEAKER) (test 5 % fsar=448) MONOCYTES RELATIVE PERCENT (BEAKER) (test 10 % ubae=027) EOSINOPHILS RELATIVE PERCENT (BEAKER) (test 0 % hcnd=325) BASOPHILS RELATIVE PERCENT (BEAKER) (test 0 % scxe=112) NEUTROPHILS ABSOLUTE COUNT (BEAKER) (test 8.40 K/ L 1.56-6.13 kgir=835) LYMPHOCYTES ABSOLUTE COUNT (BEAKER) (test 0.50 K/ L 1.18-3.74 xbiy=467) MONOCYTES ABSOLUTE COUNT (BEAKER) (test 0.97 K/ L 0.24-0.36 ckmb=312) EOSINOPHILS ABSOLUTE COUNT (BEAKER) (test 0.00 K/ L 0.04-0.36 xeun=192) BASOPHILS ABSOLUTE COUNT (BEAKER) (test 0.03 K/ L 0.01-0.08 uwlu=904) IMMATURE GRANULOCYTES-RELATIVE PERCENT (BEAKER) 1 % 0-1 (test wawx=6094) [id number] 17:40:00 Test Item Value Reference Range Comments PHOSPHORUS (BEAKER) (test uttq=003) 3.3 mg/dL 2.3-4.7 [id number] 17:40:00 Test Item Value Reference Range Comments MAGNESIUM (BEAKER) (test ryze=683) 1.8 mg/dL 1.6-2.6 BASIC METABOLIC [id number] 17:40:00 Test Item Value Reference Range Comments SODIUM (BEAKER) (test 140 meq/L 136-145 wpjd=661) POTASSIUM (BEAKER) (test 4.6 meq/L 3.5-5.1 ttcx=889) CHLORIDE (BEAKER) (test 112 meq/L 98-107 dyuf=246) CO2 (BEAKER) (test 21 meq/L 22-29 iheh=902) BLOOD UREA NITROGEN 20 mg/dL 7-21 (BEAKER) (test crzv=304) CREATININE (BEAKER) (test 1.46 mg/dL 0.57-1.25 jsqp=818) GLUCOSE RANDOM (BEAKER) 215 mg/dL 70-105 (test vuxp=487) CALCIUM (BEAKER) (test 8.2 mg/dL 8.4-10.2 odic=496) EGFR (BEAKER) (test 43 mL/min/1.73 sq m ESTIMATED GFR IS NOT nhvi=4383) ACCURATE CREATININE CLEARANCE IN PREDICTING GLOMERULAR FILTRATION RATE. ESTIMATED GFR IS NOT APPLICABLE FOR DIALYSIS PATIENTS. [id number] 17:03:00 Test Item Value Reference Range Comments PROTIME (BEAKER) (test ewgu=235) 15.7 seconds 11.9-14.2 INR (BEAKER) (test qiyf=501) 1.3 <=5.9 PARTIAL THROMBOPLASTIN TIME (BEAKER) (test 34.4 seconds 22.5-36.0 eeiv=076) Effective 07/16/2018: PT Reference Range ChangeNew: 11.9-14.2 Previous: 11.7- 14.7RECOMMENDED COUMADIN/WARFARIN INR THERAPY RANGESSTANDARD DOSE: 2.0-3.0 Includes: PROPHYLAXIS for venous thrombosis, systemic embolization; TREATMENT for venous thrombosis and/or pulmonary embolus.HIGH RISK: Target INR is2.5-3.5 for patients wiht mechanical heart valves.CBC W/PLT COUNT & AUTO [id number] 16:56:00 Test Item Value Reference Range Comments WHITE BLOOD CELL COUNT (BEAKER) (test iyhx=042) 8.4 K/ L 3.5-10.5 RED BLOOD CELL COUNT (BEAKER) (test utdt=318) 3.69 M/ L 3.93-5.22 HEMOGLOBIN (BEAKER) (test nhsh=226) 11.0 GM/DL 11.2-15.7 HEMATOCRIT (BEAKER) (test lxgv=308) 35.4 % 34.1-44.9 MEAN CORPUSCULAR VOLUME (BEAKER) (test qdmg=113) 95.9 fL 79.4-94.8 MEAN CORPUSCULAR HEMOGLOBIN (BEAKER) (test 29.8 pg 25.6-32.2 xebr=721) MEAN CORPUSCULAR HEMOGLOBIN CONC (BEAKER) (test 31.1 GM/DL 32.2-35.5 vijm=770) RED CELL DISTRIBUTION WIDTH (BEAKER) (test 14.4 % 11.7-14.4 anli=329) PLATELET COUNT (BEAKER) (test wpvc=752) 119 K/CU MM 150-450 MEAN PLATELET VOLUME (BEAKER) (test nthd=956) 12.2 fL 9.4-12.3 NUCLEATED RED BLOOD CELLS (BEAKER) (test 0 /100 WBC 0-0 xtgv=240) NEUTROPHILS RELATIVE PERCENT (BEAKER) (test 79 % jrrt=689) LYMPHOCYTES RELATIVE PERCENT (BEAKER) (test 11 % rbxk=678) MONOCYTES RELATIVE PERCENT (BEAKER) (test 9 % kwny=655) EOSINOPHILS RELATIVE PERCENT (BEAKER) (test 0 % jmdw=865) BASOPHILS RELATIVE PERCENT (BEAKER) (test 1 % oegk=246) NEUTROPHILS ABSOLUTE COUNT (BEAKER) (test 6.62 K/ L 1.56-6.13 qxuj=364) LYMPHOCYTES ABSOLUTE COUNT (BEAKER) (test 0.88 K/ L 1.18-3.74 kqjf=477) MONOCYTES ABSOLUTE COUNT (BEAKER) (test 0.78 K/ L 0.24-0.36 pwej=637) EOSINOPHILS ABSOLUTE COUNT (BEAKER) (test 0.03 K/ L 0.04-0.36 fhzh=346) BASOPHILS ABSOLUTE COUNT (BEAKER) (test 0.04 K/ L 0.01-0.08 anef=668) IMMATURE GRANULOCYTES-RELATIVE PERCENT (BEAKER) 0 % 0-1 (test tlbt=2443) POCT-GLUCOSE [id number] 16:55:00 Test Item Value Reference Range Comments POC-GLUCOSE METER (BEAKER) 200 mg/dL 70-110 : TESTED AT [address] (test woog=5801) [facility], [address]: Driller [employer] Spindle/Sound Equipment Mechanic [id number] for JOSE BRADLEY [id number] 13:51:00 Test Item Value Reference Range Comments ACTIVATED CLOTTING TIME 274 sec Reference Range: 74-137 (BEAKER) (test xako=715) seconds, Baseline/TESTED AT [address] [address] [id number] 13:51:00 Test Item Value Reference Range Comments ACTIVATED CLOTTING TIME 323 sec Reference Range: 74-137 (BEAKER) (test aivv=776) seconds, Baseline/TESTED AT [address] [address] CBC W/PLT COUNT & AUTO [id number] 07:44:00 Test Item Value Reference Range Comments WHITE BLOOD CELL COUNT (BEAKER) (test ryve=233) 4.0 K/ L 3.5-10.5 RED BLOOD CELL COUNT (BEAKER) (test cuza=868) 4.15 M/ L 3.93-5.22 HEMOGLOBIN (BEAKER) (test lkio=825) 12.5 GM/DL 11.2-15.7 HEMATOCRIT (BEAKER) (test wcoi=719) 40.1 % 34.1-44.9 MEAN CORPUSCULAR VOLUME (BEAKER) (test mumr=835) 96.6 fL 79.4-94.8 MEAN CORPUSCULAR HEMOGLOBIN (BEAKER) (test 30.1 pg 25.6-32.2 lrxg=005) MEAN CORPUSCULAR HEMOGLOBIN CONC (BEAKER) (test 31.2 GM/DL 32.2-35.5 jhtz=152) RED CELL DISTRIBUTION WIDTH (BEAKER) (test 14.6 % 11.7-14.4 qgrl=941) PLATELET COUNT (BEAKER) (test ebks=538) 99 K/CU MM 150-450 MEAN PLATELET VOLUME (BEAKER) (test ksqe=750) 12.6 fL 9.4-12.3 NUCLEATED RED BLOOD CELLS (BEAKER) (test 0 /100 WBC 0-0 oyqh=887) NEUTROPHILS RELATIVE PERCENT (BEAKER) (test 57 % zelv=852) LYMPHOCYTES RELATIVE PERCENT (BEAKER) (test 28 % ehem=068) MONOCYTES RELATIVE PERCENT (BEAKER) (test 12 % ovep=681) EOSINOPHILS RELATIVE PERCENT (BEAKER) (test 2 % ottj=596) BASOPHILS RELATIVE PERCENT (BEAKER) (test 1 % ukzd=443) NEUTROPHILS ABSOLUTE COUNT (BEAKER) (test 2.27 K/ L 1.56-6.13 lqje=923) LYMPHOCYTES ABSOLUTE COUNT (BEAKER) (test 1.10 K/ L 1.18-3.74 tebz=196) MONOCYTES ABSOLUTE COUNT (BEAKER) (test zags=545) 0.48 K/ L 0.24-0.36 EOSINOPHILS ABSOLUTE COUNT (BEAKER) (test 0.09 K/ L 0.04-0.36 lrgj=198) BASOPHILS ABSOLUTE COUNT (BEAKER) (test babp=760) 0.05 K/ L 0.01-0.08 IMMATURE GRANULOCYTES-RELATIVE PERCENT (BEAKER) 0 % 0-1 (test tzji=8094) POCT-GLUCOSE [id number] 06:13:00 Test Item Value Reference Range Comments POC-GLUCOSE METER (BEAKER) 123 mg/dL 70-110 : TESTED AT [address] (test wkkq=6087) [facility], [address]: Driller Multiple Spindle/Sound Equipment Mechanic [id number] for ACOSTA ADAIR PLATELET [id number] 11:27:00 Test Item Value Reference Range Comments PLATELET COUNT (BEAKER) (test bjgc=120) 112 K/CU MM 150-450 [id number] 11:07:00 Test Item Value Reference Range Comments SODIUM (BEAKER) (test axmo=974) 138 meq/L 136-145 POTASSIUM (BEAKER) (test gzou=122) 4.7 meq/L 3.5-5.1 CHLORIDE (BEAKER) (test qoem=693) 107 meq/L 98-107 CO2 (BEAKER) (test bkuu=534) 26 meq/L 22-29 [id number] 11:07:00 Test Item Value Reference Range Comments GLUCOSE RANDOM (BEAKER) (test psjh=748) 134 mg/dL 70-105 BUN AND [id number] 11:07:00 Test Item Value Reference Range Comments BLOOD UREA NITROGEN 26 mg/dL 7-21 (BEAKER) (test ggeh=112) CREATININE (BEAKER) (test 1.83 mg/dL 0.57-1.25 ditm=610) EGFR (BEAKER) (test 33 mL/min/1.73 sq m ESTIMATED GFR IS NOT cdby=1352) ACCURATE CREATININE CLEARANCE IN PREDICTING GLOMERULAR FILTRATION RATE. ESTIMATED GFR IS NOT APPLICABLE FOR DIALYSIS PATIENTS. [id number] 10:54:00 Test Item Value Reference Range Comments HEMOGLOBIN FABRICIO) (test tuxl=697) 13.1 GM/DL 11.2-15.7 PET, CARDIAC PERFUSION MULTIPLE STUDIES, REST AND [id number] 16:17: 00Reason for Exam:->i73.9, e11.9, i25.10FINAL REPORT PROCEDURE: MYOCARDIAL PERFUSION PET IMAGING (Rest/Stress)CPT CODE: 24190 INDICATION: Known CAD CARDIOVASCULAR PROFILE:CAD History: Known CAD, CHFSymptoms : NoneRisk Factors: CAD, diabetes, hypertension, dyslipidemia, PAD, family history early CADBMI: 42.7Medications:Amiodarone, aspirin, carvedilol, furosemide, Plavix, Crestor, Entresto STRESS PROTOCOL:Pharmacologicstress was achieved with a 10-second intravenous infusion of regadenoson 0.4 mg. The radiopharmaceutical was administered 30 seconds after the start of the regadenoson infusion. IMAGING PROTOCOL:Limited low-dose CT imaging was performed for attenuation correction. 40.1 mCi of Rb-82 chloride was injected intravenously at rest, and gated PET images were obtained. Then, 40.1 mCi of Rb- 82 chloride was injected intravenously at peak stress, and gated PET images were obtained. Image quality is good. REST FINDINGS:HR: 59/minBP: 134/49 mmHgPrelim. EKG: Sinus bradycardia.Perfusion: Normal.Wall Motion: Global hypokinesis (LVEF 38%).LV Volume: Normal.RV Volume: Normal. STRESS FINDINGS:HR: 65/min (43% of MPHR)BP: 134/49 mmHgPrelim. EKG: No ischemic changes.Symptoms: None (treatment not required).Perfusion: Normal.Wall Motion: Global hypokinesis (LVEF 44%).LV Volume: Not significantly changed from rest. IMPRESSION:1. Normal study.2. Normal myocardial perfusion. 3. Decreased resting LVEF, which does not deteriorate with pharmacologic stress.4. Normal extracardiac tracer distribution.5. There is no prior study for comparison. Signed: Darrell Naidu MDReport Verified Date/Time: 11/26/2018 16:17:24 Reading Location: [address] Reading Room [facility] METABOLIC [id number] 11:28:00 Test Item Value Reference Range Comments SODIUM (BEAKER) (test 142 meq/L 136-145 hfrh=013) POTASSIUM (BEAKER) (test 4.5 meq/L 3.5-5.1 dslv=297) CHLORIDE (BEAKER) (test 107 meq/L 98-107 hqmq=306) CO2 (BEAKER) (test 25 meq/L 22-29 knzo=642) BLOOD UREA NITROGEN 22 mg/dL 7-21 (BEAKER) (test webn=358) CREATININE (BEAKER) (test 1.72 mg/dL 0.57-1.25 taba=025) GLUCOSE RANDOM (BEAKER) 102 mg/dL 70-105 (test xrup=449) CALCIUM (BEAKER) (test 9.7 mg/dL 8.4-10.2 ogyh=867) EGFR (BEAKER) (test 35 mL/min/1.73 sq m ESTIMATED GFR IS NOT fszd=8284) ACCURATE CREATININE CLEARANCE IN PREDICTING GLOMERULAR FILTRATION RATE. ESTIMATED GFR IS NOT APPLICABLE FOR DIALYSIS PATIENTS. CBC W/PLT COUNT & AUTO [id number] 11:19:00 Test Item Value Reference Range Comments WHITE BLOOD CELL COUNT (BEAKER) (test tyki=296) 4.5 K/ L 3.5-10.5 RED BLOOD CELL COUNT (BEAKER) (test ourg=349) 4.78 M/ L 3.93-5.22 HEMOGLOBIN (BEAKER) (test ldfn=779) 14.1 GM/DL 11.2-15.7 HEMATOCRIT (BEAKER) (test lfyv=728) 47.0 % 34.1-44.9 MEAN CORPUSCULAR VOLUME (BEAKER) (test rnea=002) 98.3 fL 79.4-94.8 MEAN CORPUSCULAR HEMOGLOBIN (BEAKER) (test 29.5 pg 25.6-32.2 zxwk=469) MEAN CORPUSCULAR HEMOGLOBIN CONC (BEAKER) (test 30.0 GM/DL 32.2-35.5 pqao=549) RED CELL DISTRIBUTION WIDTH (BEAKER) (test 13.9 % 11.7-14.4 rltg=837) PLATELET COUNT (BEAKER) (test lner=865) 124 K/CU MM 150-450 MEAN PLATELET VOLUME (BEAKER) (test zmfo=869) 12.0 fL 9.4-12.3 NUCLEATED RED BLOOD CELLS (BEAKER) (test 0 /100 WBC 0-0 yakx=473) NEUTROPHILS RELATIVE PERCENT (BEAKER) (test 64 % dfbp=781) LYMPHOCYTES RELATIVE PERCENT (BEAKER) (test 22 % akpd=157) MONOCYTES RELATIVE PERCENT (BEAKER) (test 11 % biox=381) EOSINOPHILS RELATIVE PERCENT (BEAKER) (test 2 % rdkj=606) BASOPHILS RELATIVE PERCENT (BEAKER) (test 1 % ebut=364) NEUTROPHILS ABSOLUTE COUNT (BEAKER) (test 2.89 K/ L 1.56-6.13 vzog=541) LYMPHOCYTES ABSOLUTE COUNT (BEAKER) (test 0.97 K/ L 1.18-3.74 rxnq=086) MONOCYTES ABSOLUTE COUNT (BEAKER) (test 0.48 K/ L 0.24-0.36 egaj=745) EOSINOPHILS ABSOLUTE COUNT (BEAKER) (test 0.10 K/ L 0.04-0.36 tflw=735) BASOPHILS ABSOLUTE COUNT (BEAKER) (test 0.06 K/ L 0.01-0.08 uuia=859) IMMATURE GRANULOCYTES-RELATIVE PERCENT (BEAKER) 0 % 0-1 (test emky=3116) BASIC METABOLIC [id number] 14:13:00 Test Item Value Reference Range Comments SODIUM (BEAKER) (test 141 meq/L 136-145 jwcb=994) POTASSIUM (BEAKER) (test 4.5 meq/L 3.5-5.1 bcio=839) CHLORIDE (BEAKER) (test 109 meq/L 98-107 yjvr=312) CO2 (BEAKER) (test 22 meq/L 22-29 zlym=399) BLOOD UREA NITROGEN 26 mg/dL 7-21 (BEAKER) (test dmqc=442) CREATININE (BEAKER) (test 1.74 mg/dL 0.57-1.25 tkce=292) GLUCOSE RANDOM (BEAKER) 98 mg/dL 70-105 (test aaym=230) CALCIUM (BEAKER) (test 9.8 mg/dL 8.4-10.2 cihr=650) EGFR (BEAKER) (test 35 mL/min/1.73 sq m ESTIMATED GFR IS NOT movn=6092) ACCURATE CREATININE CLEARANCE IN PREDICTING GLOMERULAR FILTRATION RATE. ESTIMATED GFR IS NOT APPLICABLE FOR DIALYSIS PATIENTS. CBC W/PLT COUNT & AUTO [id number] 13:54:00 Test Item Value Reference Range Comments WHITE BLOOD CELL COUNT (BEAKER) (test vqmq=170) 5.4 K/ L 3.5-10.5 RED BLOOD CELL COUNT (BEAKER) (test rjuj=529) 4.55 M/ L 3.93-5.22 HEMOGLOBIN (BEAKER) (test jtwa=230) 14.0 GM/DL 11.2-15.7 HEMATOCRIT (BEAKER) (test tvul=086) 45.3 % 34.1-44.9 MEAN CORPUSCULAR VOLUME (BEAKER) (test adrt=967) 99.6 fL 79.4-94.8 MEAN CORPUSCULAR HEMOGLOBIN (BEAKER) (test 30.8 pg 25.6-32.2 rjwv=817) MEAN CORPUSCULAR HEMOGLOBIN CONC (BEAKER) (test 30.9 GM/DL 32.2-35.5 igll=071) RED CELL DISTRIBUTION WIDTH (BEAKER) (test 13.8 % 11.7-14.4 zmmo=626) PLATELET COUNT (BEAKER) (test ulai=776) 133 K/CU MM 150-450 MEAN PLATELET VOLUME (BEAKER) (test vyqk=874) 11.4 fL 9.4-12.3 NUCLEATED RED BLOOD CELLS (BEAKER) (test 0 /100 WBC 0-0 gbzv=403) NEUTROPHILS RELATIVE PERCENT (BEAKER) (test 63 % xtnl=444) LYMPHOCYTES RELATIVE PERCENT (BEAKER) (test 24 % qlpu=318) MONOCYTES RELATIVE PERCENT (BEAKER) (test 9 % pxzx=454) EOSINOPHILS RELATIVE PERCENT (BEAKER) (test 2 % nyfx=455) BASOPHILS RELATIVE PERCENT (BEAKER) (test 1 % ddaf=881) NEUTROPHILS ABSOLUTE COUNT (BEAKER) (test 3.39 K/ L 1.56-6.13 wqei=092) LYMPHOCYTES ABSOLUTE COUNT (BEAKER) (test 1.30 K/ L 1.18-3.74 vfet=667) MONOCYTES ABSOLUTE COUNT (BEAKER) (test 0.50 K/ L 0.24-0.36 ebkm=783) EOSINOPHILS ABSOLUTE COUNT (BEAKER) (test 0.12 K/ L 0.04-0.36 xdnf=479) BASOPHILS ABSOLUTE COUNT (BEAKER) (test 0.06 K/ L 0.01-0.08 zjnk=582) IMMATURE GRANULOCYTES-RELATIVE PERCENT (BEAKER) 1 % 0-1 (test boxj=5615)
--- OUTSIDE RECORDS SUMMARY | 2019-03-21 14:26 | XMS REPORT | Summary of Care ---
:[address] [facility] [place] [address] Care Team Providers Name Role Phone Nam Cook MD Primary Care Provider Reason for Visit Reason Comments Essential Hypertension Encounter Details Date Type Department Care Team Description 11/17/2018 Office Visit Michael Holcomb MD [facility] at [address] [facility] [place] [id number] [place], [place] [id number] Allergies No Known Allergiesdocumented as of this encounter (statuses as of 11/17/2018) Medications Medication Sig Dispensed Refills Start Date End Date Status amiodarone TK 1 T PO QD 3 04/01/2018 Active (PACERONE) 200 MG tablet carvedilol (COREG) TK 1 T PO BID WF 1 04/08/2018 Active 6.25 MG tablet memantine (NAMENDA) TK 1 T PO BID 5 05/15/2018 Active 10 MG tablet ENTRESTO 24-26 MG TK 1 T PO Q 12 H 6 05/19/2018 Active TABS acetaminophen-codei TK 1 T PO QD. 0 05/21/2018 Active ne (TYLENOL #3) 300-30 MG per tablet LANTUS 100 UNIT/ML INJECT 20 UNITS 0 04/18/2018 Active injection SUBCUTANEOUSLY D. potassium chloride TK 1 T PO QAM 3 04/22/2018 Active SA (K-DUR, KLOR-CON M20) 20 MEQ tablet rosuvastatin 0 05/21/2018 Active (CRESTOR) 20 MG tablet Clopidogrel Take by mouth. 0 Active Bisulfate (PLAVIX OR) BABY ASPIRIN OR Take by mouth daily. 0 Active documented as of this encounter (statuses as of 11/17/2018) Active Problems Problem Noted Date PAD (peripheral artery disease) (HCCode) 07/02/2018 Essential hypertension 07/02/2018 Pacemaker 02/19/2012 Overview: PPM MDT [id number] Dr Gonzalez CAD (coronary artery disease) 02/18/2009 Overview: Non obstructive as per cath 2009 Cardiomyopathy, ischemic 02/18/2009 Overview: reported EF in the range 15% as of 2014 by TTE Type 2 diabetes mellitus without [facility] Hypertension Hyperlipidemia PAD (peripheral artery disease) [facility] Overview: LEFT sp SFA stent occluded, occluded PT and Peroneal , patent AT documented as of this encounter (statuses as of 11/17/2018) Social History Tobacco Use Types Packs/Day Years Used Date Never Smoker Smokeless Tobacco: Never Used Alcohol Use Drinks/Week oz/Week Comments Not Currently Sex Assigned at Date Recorded Not on file Job Start Date Occupation Industry Not on file Not on file Not on file Travel History Travel Start Travel End No recent travel history available. documented as of this encounter Last Filed Vital Signs Vital Sign Reading Time Taken Comments Blood Pressure 140/80 11/17/2018 4:24 PM CDT Pulse 63 11/17/2018 4:24 PM CDT Temperature - - Respiratory Rate - - Oxygen Saturation - - Inhaled Oxygen Concentration - - Weight 103 kg (227 lb) 11/17/2018 4:11 PM CDT Height 162.6 cm (5' 4") 11/17/2018 4:11 PM CDT Body Mass Index 38.96 11/17/2018 4:11 PM CDT documented in this encounter Progress Notes Michael Mancia MD - 11/17/2018 4:45 PM CDT MICHAEL MANCIA MD, FACC, [facility] Cardiology - Interventional Museum Exhibit Designerdistillery manager , [facility] Senior Research Cleater, Interventional Cardiology, [facility] [address] [place] [address], [address] [place] [address] , [email or web address] ; [email or web address] MD Dr Nicholas Doan CC. Sunitha-operatory CV risk evaluation Pre-op PAD possible surgical vascular revascularization, occluded stent L-SFA, occluded PT and Per, patent AT Ischemic CMP, non obstructive CAD, DM HTN HLD CKD HPI. Mrs Sangita Hendrix is a pleasant 73 y.o. lady who presented for CV evaluation on 11/17/18 for sunitha-operatory CV risk assessment, given claudication for Pre-op PAD possible surgical vascular revascularization, occluded stent L-SFA, occluded PT and Per, patent AT. 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 Later PPM was upgraded toICD due to dilated CMP, possibly ischemic. + claudication but also occ sx at rest - may be due to associated DM neuropathy Denies angina, orthopnea, PND, edema Her previous CV diagnoses and co-morbidities include: CAD non obstructive as per cath 2009 Previous MPI EF 62% in 2009, with moderate size infero-apical infarction Subsequent studies revealed lower EF range 15-25% Required ICD No therapies delivered No angina HFrEF As above , EF range 15-25% Sp ICD On BB Entresto amiodarone FC 2 NYHA Ischemic CMP As above stable and euvolemic, well compensated on exam as of 11/17/18 PPM By report was having syncope, bradycardia - did have PPM MDT According to review of notes upgrade to ICD EVERA MDT XT VR [id number], mode VVI, , no therapies delivered since 2016 through 2018 HTN medical mgt HLD On statin therapy DM On Insulin Lantus CKD Cr 1.72 (10/2018) PAD occluded stent L-SFA, occluded PT and Per, patent AT Obese Dementia ? vascular vs Alzheimer Review of Systems Constitutional: Negative. HENT: Negative. Eyes: Negative. Respiratory: Positive for shortness of breath. Negative for cough, hemoptysis, sputum production andwheezing. Cardiovascular: Positive for claudication. Negative for chest pain, palpitations , orthopnea, leg swelling and PND. Gastrointestinal: Negative. Genitourinary: Negative. Musculoskeletal: Positive for back pain. Negative for falls. Skin: Negative. Neurological: Positive for tingling and sensory change. Negative for dizziness, tremors, speech change, focal weakness, seizures, loss of consciousness and weakness. Endo/Heme/Allergies: Negative. Past Medical History: Diagnosis Date Arthritis CAD (coronary artery disease) 2009 Non obstructive as per cath 2009 Cardiomyopathy, ischemic 2009 reported EF in the range 15% as of 2014 by TTE Hyperlipidemia Hypertension Pacemaker [id number] Gonzalez PAD (peripheral artery disease) (HCCode) LEFT sp SFA stent occluded, occluded PT and Peroneal , patent AT Type 2 diabetes mellitus without complication (HCCode) Past Surgical History: Procedure Laterality Date HX ANGIOPLASTY 05/2018 HX of PAD HX BACK SURGERY HX HYSTERECTOMY 1981 HX PACEMAKER INSERTION HX PACEMAKER PLACEMENT 2012 Family History Problem Relation Name Age of Onset Heart Attack Father Heart Attack Brother Social History Tobacco Use Smoking status: Never Smoker Smokeless tobacco: Never Used Substance Use Topics Alcohol use: Not Currently Drug use: Not on file No Known Allergies Current Outpatient Medications: acetaminophen-codeine (TYLENOL #3) 300-30 MG per tablet, TK 1 T PO QD., Disp: , Rfl: 0 amiodarone (PACERONE) 200 MG tablet, TK 1 T PO QD, Disp: , Rfl: 3 BABY ASPIRIN OR, Take by mouth daily., Disp: , Rfl: carvedilol (COREG) 6.25 MG tablet, TK 1 T PO BID WF, Disp: , Rfl: 1 Clopidogrel Bisulfate (PLAVIX OR), Take by mouth., Disp: , Rfl: ENTRESTO 24-26 MG TABS, TK 1 T PO Q 12 H, Disp: , Rfl: 6 LANTUS 100 UNIT/ML injection, INJECT 20 UNITS SUBCUTANEOUSLY D., Disp: , Rfl: 0 memantine (NAMENDA) 10 MG tablet, TK 1 T PO BID, Disp: , Rfl: 5 potassium chloride SA (K-DUR, KLOR-CON M20) 20 MEQ tablet, TK 1 T PO QAM, Disp: , Rfl: 3 rosuvastatin (CRESTOR) 20 MG tablet, , Disp: , Rfl: Physical Exam: Vital Signs Height: 5' 4" (162.6 cm) Weight - Scale: 227 lb (103 kg) Pulse: 63 BP: 140/80 Patient Position: Sitting BP Location: left arm General: Obese appearance, in no acute distress, euvolemic Head: Normocephalic, atraumatic Eyes: CLARA, clear sclera Mouth: Moist mucosae, no lesions Neck: Supple, no JVD, carotid pulses symmetric, adequate upstroke, soft bilateral bruits Thorax: Normal to inspection Heart: Normal PMI, no thrills, has regular rate and rhythm, no gallops, no murmurs, no rubs Lungs: Clear to percussion and auscultation Abdomen: Bowel sounds present, non tender, no organomegalies, difficult to palpate due to corpulent, globularabdomen Extremities: No lesions, no edema Vascular: No venous insufficiency Pulses 2+ symmetric upper extremities, not palpable LLE but no ischemic changes at rest Normal Collin's Neurologic: Alert, oriented x 3, no focal deficit - motor or sensory + cognitive decline due to dementia Data reviewed ( available laboratory , imaging): Available data [id number] TTE CATH MIBI as described above, , reviewed and scanned Lab Results Component Value Date WBC 4.5 10/29/2018 HGB 14.1 10/29/2018 HCT 47.0 (H) 10/29/2018 MCV 98.3 (H) 10/29/2018 PLT 124 (L) 10/29/2018 Lab Results Component Value Date CREATININE 1.72 (H) 10/29/2018 Lab Results Component Value Date GLUCOSE 102 10/29/2018 No results found for: ALT, AST, GGT, ALKPHOS, BILITOT No results found for: HGBA1C, GLYCTDHGB No results found for: CHOL, HDL, LDLCALC, TRIG, CHOLHDL No results found for: TSH ECG 11/17/18 Sinus Rhythm Low voltage in precordial leads. -Poor R-wave progression -may be secondary to pulmonary disease consider old anterior infarct. ABNORMAL Assessment and Plan: Mrs Sangita Hendrix is a pleasant 73 y.o. lady who presented for CV evaluation on 11/17/18 for sunitha-operatory CV risk assessment, given claudication for Pre-op PAD possible surgical vascular revascularization, occluded stent L-SFA, occluded PT and Per, patent AT. 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 Later PPM was upgraded toICD due to dilated CMP, possibly ischemic. + claudication but also occ sx at rest - may be due to associated DM neuropathy Denies angina, orthopnea, PND, edema Has moderate CV risk given pre-existing co-morbidities, albeit fairly well compensated as of 11/17/18 Plan to continue current therapies and to better stratify risk by monitoring TTE (EF and WMA), PPM check, PET stress to determine active ischemic burden or not, CV risk factor evaluation CAD non obstructive as per cath 2009 Previous MPI EF 62% in 2009, with moderate size infero-apical infarction Subsequent studies revealed lower EF range 15-25% Required ICD No therapies delivered No angina HFrEF As above , EF range 15-25% Sp ICD On BB Entresto amiodarone FC 2 NYHA Ischemic CMP As above stable and euvolemic, well compensated on exam as of 11/17/18 PPM By report was having syncope, bradycardia - did have PPM MDT According to review of notes upgrade to ICD EVERA MDT XT VR [id number], mode VVI, , no therapies delivered since 2016 through 2018 HTN medical mgt HLD On statin therapy DM On Insulin Lantus CKD Cr 1.72 (10/2018) PAD occluded stent L-SFA, occluded PT and Per, patent AT Obese Dementia ? vascular vs Alzheimer Plan PAD - carotid US Ischemic CMP - TTE and PET stress (obese weight 230 lbs, body habitus, cannot exercise given PAD) PPM-ICD - interrogate MDT device Continue current medications LIPIDs, HbA1c, TSH, B-KIER PLEATER, troponin Prolonged encounter, questions answered, review of available data , counseling provided CV risk factor modification documented in this encounter Plan of Treatment Date Type Specialty Care Team Description 12/03/2018 Ancillary Procedure Vascular Surgery 12/03/2018 Office Visit Vascular Surgery Ian Doan MD [address] [address] Health Maintenance Due Date Last Done Comments COLON CANCER SCREENING: COLONOSCOPY 1945 MAMMOGRAM ANNUAL 1945 MEDICARE AWV 1945 TETANUS SHOT (ADULT) 1961 BMI FOLLOW UP PLAN 1964 HEPATITIS C SCREENING 1964 FALL SCREEN 09/12/2011 OSTEOPOROSIS SCREENING 09/12/2011 PNEUMOVAX >=65 (PPSV23) 09/12/2011 PREVNAR >=65 (PCV13) 09/12/2011 FLU VACCINE > 6 MONTHS 09/18/2018 documented as of this encounter Procedures Procedure Name Priority Date/Time Associated Comments Diagnosis ELECTROCARDIOGRAM Routine 11/17/2018 5:58 PAD (peripheral Results for this COMPLETE PM CDT artery disease) procedure are in (HCCode) the results section. documented in this encounter Results ELECTROCARDIOGRAM COMPLETE (11/17/2018 5:58 PM CDT) Narrative Performed At Result approved by Michael Mancia MD on 11/17/18 documented in this encounter Visit Diagnoses Diagnosis PAD (peripheral artery disease) (HCCode) - Primary Unspecified disorders of arteries and arterioles documented in this encounter Insurance Payer Benefit Plan / Subscriber ID Effective Phone Address Type Group Dates [employer] ERS MEDICARE xxxxxxxxx 2018-Prese [address] [address] Medicare HEALTHCARE [place] [address] documented as of this encounter
[2019-03-21] MEDS ORDERED: NA CHLORIDE 0.9% 1,000 ML ONE (14:59)
--- NOTE | 2019-03-21 15:20 | RAD REPORT ---
EXAM DESCRIPTION: CT - Head Brain Wo Cont - 03/21/2019 3:13 pm CLINICAL HISTORY: DIZZINESS Headache, drowsiness, dizziness COMPARISON: Head Brain Wo Cont dated 09/12/2016; Head Brain Wo Cont dated 06/21/2016 TECHNIQUE: All CT scans are performed using dose optimization technique as appropriate and may inclu de automated exposure control or mA/KV adjustment according to patient size. FINDINGS: No intracranial hemorrhage, hydrocephalus or extra-axial fluid collection.No areas of brai n edema or evidence of midline shift. The paranasal sinuses and mastoids are clear. The calvarium is intact. IMPRESSION: No acute intracranial abnormality.
[2019-03-21 15:43] LABS: Protime INR 1.19
[2019-03-21 15:45] LABS: Absolute Lymphocytes (CBC) 0.9 K/uL (0.7-4.9); Basophils % 1.2 % (0-1.3); Hematocrit 37.2 % (36.0-45.0); Lymphocytes % 20.3 % (15.3-44.8); RBC Red Blood Cell Count 4.15 M/uL (3.86-4.86)
[2019-03-21 15:58] LABS: ALT/SGPT 16 U/L (12-78); AST/SGOT 17 U/L (15-37); Albumin 3.6 g/dL (3.4-5.0); Alkaline Phosphatase 85 U/L (45-117); BUN Blood Urea Nitrogen 16 mg/dL (7-18); Bicarbonate 25 mmol/L (21-32); Bilirubin Direct 0.1 mg/dL (0-0.2); Bilirubin Total 0.4 mg/dL (0.2-1.0); Glucose Level 138 mg/dL (74-106); NT PRO-BNP 570 pg/mL (<125); Potassium 3.9 mmol/L (3.5-5.1); Protein, Total 7.8 g/dL (6.4-8.2); Sodium Level 142 mmol/L (136-145); Troponin (Emerg Dept Use Only) < 0.02 ng/mL (0.0-0.045)
--- NOTE | 2019-03-21 16:11 | RAD REPORT ---
EXAM DESCRIPTION: RAD - Chest Single View - 03/21/2019 3:41 pm CLINICAL HISTORY: COUGH Chest pain. COMPARISON: Chest Single View dated 05/29/2017; Chest Single View dated 04/25/2017; Chest Single View d ated 02/25/2017; Chest Single View dated 06/21/2016 FINDINGS: Portable technique limits examination quality. The lungs are grossly clear. The heart is upper limit normal in size. No displaced fractures.Single l ead pacer/ defibrillator device present.
--- NOTE | 2019-03-21 17:20 | RAD REPORT ---
EXAM DESCRIPTION: US - CP - 03/21/2019 5:09 pm CLINICAL HISTORY: DIZZINESS Headache, drowsiness, dizziness COMPARISON: Carotid Artery Bilateral dated 05/30/2016 TECHNIQUE: Real-time sonographic evaluation of both carotid systems was performed. Doppler interroga tion was performed with waveform tracing bilaterally. FINDINGS: Normal high resistance waveforms are noted in both external carotid arteries. The common c arotid arteries and internal carotid arteries show normal low resistance waveforms. Mild hard plaquing is seen right carotid bulb. Peak systolic and end diastolic velocity values and th e ICA/CCA ratios are in the non-hemodynamically significant range. Antegrade flow seen in both vertebral arteries. IMPRESSION: Mild hard plaquing is seen right carotid bulb. No evidence of a hemodynamically significant stenosis.
[2019-03-21 17:22] LABS: Urine Blood NEGATIVE (NEG); Urine Glucose NEGATIVE (NEG); Urine Protein TRACE (NEG); Urine Specific Gravity 1.015 (1.005-1.030)
--- NOTE | 2019-03-21 17:28 | RAD REPORT ---
EXAM DESCRIPTION: US - Renal Ultrasound-Complete - 03/21/2019 5:09 pm CLINICAL HISTORY: PAIN Flank pain COMPARISON: Abdomen Pelvis Scan dated 01/30/2016 FINDINGS: Both kidneys are mildly echogenic. The right kidney measures 8.6 x 4.3 x 3.7 cm. No hydronephrosis, focal mass or perinephric fluid. The left kidney measures 9.0 x 4.8 x 4.4 cm. No hydronephrosis, focal mass or perinephric fluid. 11 m m benign cyst is present cortex left kidney. The urinary bladder is incompletely distended without gross abnormality seen. IMPRESSION: Mildly echogenic kidneys suggests underlying medical renal disease.
--- NOTE | 2019-03-21 17:39 | ER ---
Nurse's Notes [facility] Name: Sangita Hendrix Age: 73 yrs Sex: Female : 1945 Arrival Date: 03/21/2019 Time: 14:25 Bed 23 Private MD: Diagnosis: Headache;Unspecified kidney failure-worsening;Type 1 diabetes mellitus;Dizziness and giddiness Presentation: 03/21 14:35 Presenting complaint: Frontal headache, malaise, and dizziness x 2 days. Denies hb cough/fever/nausea/body aches. VAN NEGATIVE. Transition of care: patient was not received from another setting of care. Onset of symptoms was March 20, 2019. Risk Assessment: Do you want to hurt yourself or someone else? Patient reports no desire to harm self or others. Initial Sepsis Screen: Does the patient meet any 2 criteria? No. Patient's initial sepsis screen is negative. Does the patient have a suspected source of infection? No. Patient's initial sepsis screen is negative. Care prior to arrival: None. 14:35 Method Of Arrival: Wheelchair 14:35 Acuity: MADISYN 3 hb Triage Assessment: 15:14 General: Appears in no apparent distress. comfortable, Behavior is calm, cooperative. mg2 Pain: Complains of pain in head Pain Pain began gradually, Is intermittent, Also complains of no other associated symptoms. 17:32 Headache History: The patient has had previous headaches and this one is similar to mg2 previous episodes. Historical: - Allergies: 14:37 PENICILLINS; hb - PMHx: 14:37 BRADYCARDIA; CHF; Diabetes - IDDM; Gout; Pacemaker; hb - PSHx: 14:37 Hysterectomy; back surgery; hb - Immunization history:: Adult Immunizations up to date. - Coronavirus screen:: The patient has NOT traveled to [place], [place], or [place] in the past 14 days. The patient has NOT had contact with known/suspected case of Coronavirus? Proceed with normal triage procedures. - Social history:: Smoking status: Patient denies any tobacco usage or history of. - Ebola Screening: : No symptoms or risks identified at this time. Screenin:13 Abuse screen: Denies threats or abuse. Denies injuries from another. Nutritional mg2 screening: No deficits noted. Tuberculosis screening: No symptoms or risk factors identified. Fall Risk IV access (20 points). Assessment: 15:13 General: Appears in no apparent distress. comfortable, Behavior is calm, cooperative. mg2 Pain: Complains of pain in frontal head area. Neuro: Level of Consciousness is awake, alert, obeys commands, Oriented to person, place, time, situation, Reports dizziness, headache. Cardiovascular: Capillary refill < 3 seconds Patient's skin is warm and dry. Respiratory: Airway is patent Respiratory effort is even, unlabored, Respiratory pattern is regular, symmetrical. GI: No signs and/or symptoms were reported involving the gastrointestinal system. : No signs and/or symptoms were reported regarding the genitourinary system. EENT: No signs and/or symptoms were reported regarding the EENT system. Derm: Skin is intact, is healthy with good turgor, Skin is pink, warm \T\ dry. normal. Musculoskeletal: Circulation, motion, and sensation intact. Capillary refill < 3 seconds. 17:31 Reassessment: Patient appears in no apparent distress at this time. Patient and/or mg2 family updated on plan of care and expected duration. Pain level reassessed. Patient is alert, oriented x 3, equal unlabored respirations, skin warm/dry/pink. 18:07 Reassessment: Patient appears in no apparent distress at this time. Patient and/or mg2 family updated on plan of care and expected duration. Pain level reassessed. Patient states feeling better. Vital Signs: 14:36 BP 147 / 52; Pulse 65; Resp 16; Temp 97.1; Pulse Ox 100% on R/A; Weight 99.79 kg; hb Height 5 ft. 4 in. (162.56 cm); Pain 8/10; 16:51 BP 140 / 50 Supine; Pulse 59; Resp 18; Pulse Ox 98% on R/A; mg2 16:51 BP 134 / 76 Sitting; Pulse 59; Resp 17; Pulse Ox 97% on R/A; mg2 16:51 BP 124 / 72 Standing; Pulse 69; Resp 18; Pulse Ox 98% ; mg2 17:31 BP 144 / 63; Pulse 55; Resp 18; Pulse Ox 98% on R/A; mg2 14:36 Body Mass Index 37.76 (99.79 kg, 162.56 cm) hb ED Course: 14:25 Patient arrived in ED. mr 14:36 Triage completed. hb 14:36 Arm band placed on. hb 14:49 Antonio Hardy, RN is Primary Nurse. mg2 14:49 Sukumar Correa MD is Attending Physician. ranjan 15:13 Patient has correct armband on for positive identification. mg2 15:15 CT Head Brain wo Cont In Process Unspecified. EDMS 15:34 No provider procedures requiring assistance completed. Inserted saline lock: 20 gauge mg2 in right hand, using aseptic technique. Blood collected. 15:42 XRAY Chest (1 view) In Process Unspecified. EDMS 17:09 US Rp Exam Complete In Process Unspecified. EDMS 17:09 US Carotid Artery Bilateral In Process Unspecified. EDMS 17:38 Patrick Stubbs MD is Referral Physician. ranjan 18:08 IV discontinued, intact, bleeding controlled, No redness/swelling at site. Pressure mg2 dressing applied. Administered Medications: 15:33 Drug: NS 0.9% 1000 ml Route: IV; Rate: 125 ml/hr; Site: right hand; mg2 16:16 Drug: NS 0.9% 500 ml Route: IV; Rate: bolus; Site: right hand; mg2 17:57 Follow up: Response: No adverse reaction; IV Status: Completed infusion; IV Intake: mg2 500ml 17:15 Drug: NS 0.9% 500 ml Route: IV; Rate: bolus; Site: right hand; mg2 17:42 Follow up: Response: No adverse reaction; IV Status: Completed infusion; IV Intake: mg2 500ml Intake: 17:42 IV: 500ml; Total: 500ml. mg2 17:57 IV: 500ml; Total: 1000ml. mg2 Outcome: 17:38 Discharge ordered by . ranjan 18:07 Discharged to home ambulatory, with family. mg2 18:07 Condition: stable 18:07 Discharge instructions given to patient, family, Instructed on discharge instructions, follow up and referral plans. Demonstrated understanding of instructions, follow-up care. 18:08 Patient left the ED. mg2 Signatures: Dispatcher [employer] EDCO Sukumar Correa MD MD cha Rivera, Mary mr Baxter, Heather, RN RN Antonio Hardy, ANAMARIA RN mg2
--- NOTE | 2019-03-21 17:40 | EDPHYS ---
Physician Documentation [facility] Name: Sangita Hendrix Age: 73 yrs Sex: Female : 1945 Arrival Date: 03/21/2019 Time: 14:25 Bed 23 Private MD: ED Physician Sukumar Correa HPI: 03/21 15:32 This 73 yrs old Black Female presents to ER via Wheelchair with complaints of Headache, ranjan Dizziness. 15:32 The patient complains of pain to the top of head, forehead, left frontal area and left ranjan temporal area. The patient describes the headache as aching. Onset: The symptoms/episode began/occurred 1 day(s) ago. Associated signs and symptoms: Pertinent positives: dizziness. Severity of symptoms: At its worst the pain was mild, in the emergency department the pain is unchanged. Headache History: The patient has had previous headaches and this one is similar to previous episodes. The symptoms are alleviated by nothing. the symptoms are aggravated by nothing. Historical: - Allergies: 14:37 PENICILLINS; hb - PMHx: 14:37 BRADYCARDIA; CHF; Diabetes - IDDM; Gout; Pacemaker; hb - PSHx: 14:37 Hysterectomy; back surgery; hb - Immunization history:: Adult Immunizations up to date. - Coronavirus screen:: The patient has NOT traveled to [place], [place], or [place] in the past 14 days. The patient has NOT had contact with known/suspected case of Coronavirus? Proceed with normal triage procedures. - Social history:: Smoking status: Patient denies any tobacco usage or history of. - Ebola Screening: : No symptoms or risks identified at this time. ROS: 15:33 Constitutional: Negative for fever, chills, and weight loss, Eyes: Negative for injury, ranjan pain, redness, and discharge, ENT: Negative for injury, pain, and discharge, Neck: Negative for injury, pain, and swelling, Cardiovascular: Negative for chest pain, palpitations, and edema, Respiratory: Negative for shortness of breath, cough, wheezing, and pleuritic chest pain, Abdomen/GI: Negative for abdominal pain, nausea, vomiting, diarrhea, and constipation, Back: Negative for injury and pain, : Negative for injury, bleeding, discharge, and swelling, MS/Extremity: Negative for injury and deformity, Skin: Negative for injury, rash, and discoloration, Psych: Negative for depression, anxiety, suicide ideation, homicidal ideation, and hallucinations, Allergy/Immunology: Negative for hives, rash, and allergies, Endocrine: Negative for neck swelling, polydipsia, polyuria, polyphagia, and marked weight changes, Hematologic/Lymphatic: Negative for swollen nodes, abnormal bleeding, and unusual bruising. 15:33 Neuro: Positive for dizziness, headache. Exam: 15:33 Constitutional: This is a well developed, well nourished patient who is awake, alert, ranjan and in no acute distress. Head/Face: Normocephalic, atraumatic. Eyes: Pupils equal round and reactive to light, extra-ocular motions intact. Lids and lashes normal. Conjunctiva and sclera are non-icteric and not injected. Cornea within normal limits. Periorbital areas with no swelling, redness, or edema. ENT: Nares patent. No nasal discharge, no septal abnormalities noted. Tympanic membranes are normal and external auditory canals are clear. Oropharynx with no redness, swelling, or masses, exudates, or evidence of obstruction, uvula midline. Mucous membranes moist. Neck: Trachea midline, no thyromegaly or masses palpated, and no cervical lymphadenopathy. Supple, full range of motion without nuchal rigidity, or vertebral point tenderness. No Meningismus. Chest/axilla: Normal chest wall appearance and motion. Nontender with no deformity. No lesions are appreciated. Cardiovascular: Regular rate and rhythm with a normal S1 and S2. No gallops, murmurs, or rubs. Normal PMI, no JVD. No pulse deficits. Respiratory: Lungs have equal breath sounds bilaterally, clear to auscultation and percussion. No rales, rhonchi or wheezes noted. No increased work of breathing, no retractions or nasal flaring. Abdomen/GI: Soft, non-tender, with normal bowel sounds. No distension or tympany. No guarding or rebound. No evidence of tenderness throughout. Back: No spinal tenderness. No costovertebral tenderness. Full range of motion. Skin: Warm, dry with normal turgor. Normal color with no rashes, no lesions, and no evidence of cellulitis. MS/ Extremity: Pulses equal, no cyanosis. Neurovascular intact. Full, normal range of motion. Neuro: Awake and alert, GCS 15, oriented to person, place, time, and situation. Cranial nerves II-XII grossly intact. Motor strength 5/5 in all extremities. Sensory grossly intact. Cerebellar exam normal. Normal gait. Psych: Awake, alert, with orientation to person, place and time. Behavior, mood, and affect are within normal limits. 15:33 Musculoskeletal/extremity: Circulation is intact in all extremities. Sensation intact. Compartment Syndrome exam of affected extremity: is normal. DVT Exam: No signs of deep vein thrombosis. no pain, no swelling, no tenderness, negative Homans' sign noted on exam, no appreciated bluish discoloration, no erythema, no increased warmth. Vital Signs: 14:36 BP 147 / 52; Pulse 65; Resp 16; Temp 97.1; Pulse Ox 100% on R/A; Weight 99.79 kg; hb Height 5 ft. 4 in. (162.56 cm); Pain 8/10; 16:51 BP 140 / 50 Supine; Pulse 59; Resp 18; Pulse Ox 98% on R/A; mg2 16:51 BP 134 / 76 Sitting; Pulse 59; Resp 17; Pulse Ox 97% on R/A; mg2 16:51 BP 124 / 72 Standing; Pulse 69; Resp 18; Pulse Ox 98% ; mg2 17:31 BP 144 / 63; Pulse 55; Resp 18; Pulse Ox 98% on R/A; mg2 14:36 Body Mass Index 37.76 (99.79 kg, 162.56 cm) hb MDM: 14:49 Patient medically screened. [facility] 15:34 Data reviewed: vital signs, nurses notes, lab test result(s), EKG, radiologic studies, [facility] CT scan, doppler, plain films, ultrasound. 03/21 14:50 Order name: Basic Metabolic Panel; Complete Time: 16: [facility] 03/21 14:50 Order name: CBC with Diff; Complete Time: 16: [facility] 03/21 14:50 Order name: LFT's; Complete Time: 16: [facility] 03/21 14:50 Order name: Magnesium; Complete Time: 16: [facility] 03/21 14:50 Order name: NT PRO-BNP; Complete Time: 16: [facility] 03/21 14:50 Order name: PT-INR; Complete Time: 16: [facility] 03/21 14:50 Order name: Troponin (emerg Dept Use Only); Complete Time: 16: [facility] 03/21 14:50 Order name: XRAY Chest (1 view); Complete Time: 17:38 [facility] 03/21 14:50 Order name: Urine Culture [facility] 03/21 14:50 Order name: CT Head Brain wo Cont; Complete Time: 16:02 [facility] 03/21 15:20 Order name: US Rp Exam Complete; Complete Time: 17:38 [facility] 03/21 15:30 Order name: US Carotid Artery Bilateral; Complete Time: 17:38 [facility] 03/21 17:18 Order name: Urine Dipstick--Ancillary (enter results); Complete Time: 17:38 03/21 14:50 Order name: EKG; Complete Time: 14:56 [facility] 03/21 14:50 Order name: Cardiac monitoring; Complete Time: 15:33 [facility] 03/21 14:50 Order name: EKG - Nurse/Tech; Complete Time: 15:33 [facility] 03/21 14:50 Order name: IV Saline Lock; Complete Time: 15:33 [facility] 03/21 14:50 Order name: Labs collected and sent; Complete Time: 15:33 [facility] 03/21 14:50 Order name: O2 Per Protocol; Complete Time: 15:33 [facility] 03/21 14:50 Order name: O2 Sat Monitoring; Complete Time: 15:34 [facility] 03/21 14:50 Order name: Urine Dipstick-Ancillary (obtain specimen); Complete Time: 16:56 [facility] 03/21 15:21 Order name: Labs - recollect needed; Complete Time: 15:33 03/21 16:13 Order name: Orthostatics; Complete Time: 16:56 [facility] Administered Medications: 15:33 Drug: NS 0.9% 1000 ml Route: IV; Rate: 125 ml/hr; Site: right hand; mg2 16:16 Drug: NS 0.9% 500 ml Route: IV; Rate: bolus; Site: right hand; mg2 17:57 Follow up: Response: No adverse reaction; IV Status: Completed infusion; IV Intake: mg2 500ml 17:15 Drug: NS 0.9% 500 ml Route: IV; Rate: bolus; Site: right hand; mg2 17:42 Follow up: Response: No adverse reaction; IV Status: Completed infusion; IV Intake: mg2 500ml Disposition: 03/21/19 17:38 Discharged to Home. Impression: Headache, Unspecified kidney failure - worsening, Type 1 diabetes mellitus, Dizziness and giddiness. - Condition is Stable. - Discharge Instructions: Type 1 Diabetes Mellitus, Diagnosis, Adult, Dizziness, General Headache Without Cause, Vertigo, Aspirin and Your Heart, General Headache Without Cause, [id number], Dizziness, [id number]. - Medication Reconciliation Form, Thank You Letter, Antibiotic Education, Prescription Opioid Use form. - Follow up: Private Physician; When: 2 - 3 days; Reason: Recheck today's complaints, Continuance of care, Re-evaluation by your physician. Follow up: Patrick Stubbs; When: 2 - 3 days; Reason: Recheck today's complaints, Re-evaluation by your physician. - Problem is new. - Symptoms have improved. Signatures: Dispatcher [employer] EDSukumar Murillo MD MD cha Baxter, Heather, RN RN Emma Irene Michele, RN RN mg2 Corrections: (The following items were deleted from the chart) 18:08 17:38 03/21/2019 17:38 Discharged to Home. Impression: Headache; Unspecified kidney mg2 failure - worsening; Type 1 diabetes mellitus; Dizziness and giddiness. Condition is Stable. Discharge Instructions: Type 1 Diabetes Mellitus, Diagnosis, Adult, Dizziness, General Headache Without Cause, Vertigo, Aspirin and Your Heart, General Headache Without Cause, [id number], Dizziness, [id number]. Forms are Medication Reconciliation Form, Thank You Letter, Antibiotic Education, Prescription Opioid Use. Follow up: Private Physician; When: 2 - 3 days; Reason: Recheck today's complaints, Continuance of care, Re-evaluation by your physician. Follow up: Patrick Stubbs; When: 2 - 3 days; Reason: Recheck today's complaints, Re-evaluation by your physician. Problem is new. Symptoms have improved. ranjan
[2019-03-21 18:56] VITALS: TEMP 97.1
[2019-03-21 19:00] VITALS: BP 144/63; O2SAT 98
--- NOTE | 2019-03-23 05:29 | EKG ---
Test Date: 2019-03-21 Test Time: 15:29:26 Typewriter Mechanic: ELIZABETH MEASUREMENT RESULTS: Intervals: Rate: 60 WI: 210 QRSD: 96 QT: 486 QTc: 486 [place]: P: 83 WI: 210 QRS: -23 T: 10 INTERPRETIVE STATEMENTS: Sinus rhythm with 1st degree AV block Septal infarct, age undetermined ST & T wave abnormality, consider inferior ischemia Abnormal ECG Compared to ECG 05/29/2017 21:02:17 First degree AV block now present ST (T wave) deviation now present Possible ischemia now present Myocardial infarct finding still present Electronically Signed On 03-23-19 05:29:33 BENDER MACHINE by Geraldo Callahan
== END 2019-03-21 18:08 | disposition home or self-care (01) ==
LOC: ER 14:22
DX: R51 Headache (principal); N19 Unspecified kidney failure; E10.9 Type 1 diabetes mellitus without complications; Z88.0 Allergy status to penicillin; Z95.0 Presence of cardiac pacemaker
CPT/HCPCS: 96361; 93005; 87088; 85025; 87086; 80048; 36415; 83735; 85610; 80076; 81003; 84484; 83880; 70450; 71045; 93880; 76770; 96360; 99284; J7030

== ENCOUNTER 2019-07-15 11:45 | Emergency (ER) | payer OTHER ==
[2019-07-15] MEDS ORDERED: HYDROCODONE/APAP 5/325 MG TAB ONE (13:14)
--- OUTSIDE RECORDS SUMMARY | 2019-07-15 13:57 | XMS REPORT | Clinical Summary ---
:1945 Author Organization [facility] Address [address] [place] [address] Care Team Providers Name Role Phone Martin Cook Primary Care Provider Unavailable Leroy Whitlock Unavailable Allergies Active Allergy Reactions Severity Noted Date Comments Penicillins Hives 05/28/2018 May take by kassandra th. Has an issue Iv Medications Medication Sig Dispensed Refills Start Date End Date Status insulin glargine Inject 20 Units 0 Active (LANTUS) 100 subcutaneously as unit/mL injection needed Use as directed . potassium chloride Take 20 mEq by mouth 0 Active SA (K-DUR,KLOR-CON) daily. 20 MEQ tablet sacubitril-valsarta Take 1 tablet by 0 Active n (ENTRESTO) 24-26 mouth 2 (two) times mg Tab daily. amiodarone Take 200 mg by mouth 0 Active (PACERONE) 200 MG daily. tablet furosemide (LASIX) Take 40 mg by mouth 0 Active 40 MG tablet daily. carvedilol (COREG) Take 6.25 mg by 0 Active 6.25 MG tablet mouth 2 (two) times daily with breakfast and dinner. rosuvastatin Take 20 mg by mouth 0 Active (CRESTOR) 20 MG daily. tablet aspirin 81 MG EC Take 81 mg by mouth 0 Active tablet daily. acetaminophen Take 2 tablets (650 30 tablet 0 01/16/201901/10 Active (TYLENOL) 325 MG mg total) by mouth 0 tablet every 6 (six) hours for 360 days. gabapentin Take 2 capsules (600 60 capsule 0 01/16/2019 Active (NEURONTIN) 300 MG mg total) by mouth 0 capsule nightly. clopidogrel Take 1 tablet (75 mg 90 tablet 1 06/17/2018 (PLAVIX) 75 mg total) by mouth 0 tablet daily. 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, bilateral legs Peripheral artery disease 11/03/2018 PAD (peripheral artery disease) 06/17/2018 Encounters Date Type Specialty Care Team Description 01/10/2019 Travel 01/08/2019 Surgery Ian Doan BYPASS,FEMORAL -PERONEAL 01/08/2019 Anesthesia Event Rita Hair 01/08/2019 - Hospital Encounter Cardiology Ian Doan PAD (per ipheral artery disease) ([facility]); 01/16/2019 Acute post-oper ative pain; Acute blood los s anemia; Ischemic cardio myopathy; Type 2 diabetes mellitus with diabetic peripheral angiopathy without gangrene, with long-term current use of insulin ([facility]); Hyperglycemia 12/29/2018 Hospital Encounter Pre-Admission Ian Doan Testing MD 11/26/2018 Hospital Encounter Radiology Michael Mancia PAD (paul pheral artery disease) ([facility]); MD Pritesh Type 2 diabete s mellitus without complication, unspecified whether superintendent terminal insulin use ([facility]); Atherosclerosis of [place] coronary artery of [place] heart, angina presence unspecified 11/22/2018 Outside Orders Central Scheduling Michael Mancia PAD (pe ripheral artery disease) ([facility]) (Primary Dx); MD Pritesh Type 2 diabete s mellitus without complication, unspecified whether superintendent terminal insulin use ([facility]); Atherosclerosis of [place] coronary artery of [place] heart, angina presence unspecified 11/03/2018 Surgery Ian Doan, PERIPHERAL ANG IOS / AORTOGRAM 11/03/2018 Hospital Encounter Ian Doan MD 10/29/2018 Hospital Encounter Ian Doan PAD (per ipheral artery MD disease) ([facility]) 10/29/2018 Orders Only General Internal Medicine after 07/14/2018 Social History Tobacco Use Types Packs/Day Years Used Date Never Smoker Smokeless Tobacco: Never Used Alcohol Use Drinks/Week oz/Week Comments No Alcohol Habits Answer Date Recorded How often do you have a drink containing alcohol? Never 05/28/2018 How many drinks containing alcohol do you have on a typical Not asked day when you are drinking? How often do you have six or more drinks on one occasion? No t asked Sex Assigned at Date Recorded Not on file Job Start Date Occupation Industry Not on file Not on file Not on file Travel History Travel Start Travel End No recent travel history available. Last Filed Vital Signs Vital Sign Reading Time Taken Blood Pressure 123/75 01/16/2019 3:00 PM [facility] Pulse 61 01/16/2019 3:00 PM [facility] Temperature 36.1 C (97 F) 01/16/2019 3:00 PM [facility] Respiratory Rate 17 01/16/2019 3:00 PM [facility] Oxygen Saturation 100% 01/16/2019 3:00 PM [facility] Inhaled Oxygen Concentration - - Weight 97.8 kg (215 lb 8 oz) 01/16/2019 9:00 A M [facility] Height 162.6 cm (5' 4") 01/08/2019 5:35 AM [facility] Body Mass Index 36.99 01/16/2019 9:00 AM [facility] Plan of Treatment Not on file Implants Implanted Type Area [employer]orer [employer] Device Shelf Model / Identifier Expiration Serial / Date Lot [employer] V[employer] N/A: [employer]VASC 09/11/19 21 [id number] / Implanted: Qty: 1 on 06/17/2018 by Ian Doan MD Arterial SURG / [id number] [employer] N/A: [employer] 04/02/19 20 [id number] / Implanted: Qty: 1 on 06/17/2018 by Ian Doan MD Arterial SURG / [id number] Angio Seal Right: TERUMO 02/17/2019 [id number] / Implanted: Qty: 1 on 06/17/2018 by Ian Doan MD Arterial CARDIOVASCULAR / SYSTEMS [id number] Cellerate Activated Collagen Left: Leg WOUND CARE 08/17/2021 [id number] / Implanted: Qty: 1 on 01/08/2019 by Ian Doan MD [employer] [id number] / Procedures Procedure Name Priority Date/Time Associated Comments Diagnosis RHYTHM STRIP - SCAN 01/20/2019 12:50 PM [facility] RHYTHM STRIP - SCAN 01/20/2019 12:50 PM [facility] RHYTHM STRIP - SCAN 01/20/2019 12:42 PM [facility] POCT-GLUCOSE METER Routine 01/16/2019 11:28 Resul ts for this AM [facility] procedure are i n the results section. POCT-GLUCOSE METER Routine 01/16/2019 8:16 Resul ts for this AM [facility] procedure are i n the results section. (CELLAVISION MANUAL Routine 01/16/2019 4:23 Resu lts for this DIFF) AM [facility] procedure are i n the results section. CBC W/PLT COUNT & Routine 01/16/2019 4:23 Result s for this AUTO DIFFERENTIAL AM [facility] procedure are in the results section. CBC W/PLT COUNT & Routine 01/16/2019 4:23 Result s for this AUTO DIFFERENTIAL AM [facility] procedure are in the results section. BASIC METABOLIC PANEL Routine 01/16/2019 4:23 Re sults for this (7) AM [facility] procedure are i n the results section. POCT-GLUCOSE METER Routine 01/15/2019 8:16 Resul ts for this PM [facility] procedure are i n the results section. POCT-GLUCOSE METER Routine 01/15/2019 5:00 Resul ts for this PM [facility] procedure are i n the results section. POCT-GLUCOSE METER Routine 01/15/2019 12:49 Resul ts for this PM [facility] procedure are i n the results section. POCT-GLUCOSE METER Routine 01/15/2019 8:33 Resul ts for this AM [facility] procedure are i n the results section. POCT-GLUCOSE METER Routine 01/14/2019 8:56 Resul ts for this PM [facility] procedure are i n the results section. POCT-GLUCOSE METER Routine 01/14/2019 4:35 Resul ts for this PM [facility] procedure are i n the results section. POCT-GLUCOSE METER Routine 01/14/2019 12:35 Resul ts for this PM [facility] procedure are i n the results section. POCT-GLUCOSE METER Routine 01/14/2019 7:41 Resul ts for this AM [facility] procedure are i n the results section. POCT-GLUCOSE METER Routine 01/13/2019 9:22 Resul ts for this PM [facility] procedure are i n the results section. POCT-GLUCOSE METER Routine 01/13/2019 4:59 Resul ts for this PM [facility] procedure are i n the results section. POCT-GLUCOSE METER Routine 01/13/2019 12:32 Resul ts for this PM [facility] procedure are i n the results section. POCT-GLUCOSE METER Routine 01/13/2019 7:44 Resul ts for this AM [facility] procedure are i n the results section. CBC W/PLT COUNT & Routine 01/13/2019 5:47 Result s for this AUTO DIFFERENTIAL AM [facility] procedure are in the results section. CBC W/PLT COUNT & Routine 01/13/2019 5:47 Result s for this AUTO DIFFERENTIAL AM [facility] procedure are in the results section. BASIC METABOLIC PANEL Routine 01/13/2019 5:47 Re sults for this (7) AM [facility] procedure are i n the results section. POCT-GLUCOSE METER Routine 01/12/2019 9:24 Resul ts for this PM [facility] procedure are i n the results section. POCT-GLUCOSE METER Routine 01/12/2019 7:08 Resul ts for this PM [facility] procedure are i n the results section. POCT-GLUCOSE METER Routine 01/12/2019 5:14 Resul ts for this PM [facility] procedure are i n the results section. POCT-GLUCOSE METER Routine 01/12/2019 9:19 Resul ts for this AM [facility] procedure are i n the results section. CBC W/PLT COUNT & Routine 01/12/2019 4:14 Result s for this AUTO DIFFERENTIAL AM [facility] procedure are in the results section. CBC W/PLT COUNT & Routine 01/12/2019 4:14 Result s for this AUTO DIFFERENTIAL AM [facility] procedure are in the results section. BASIC METABOLIC PANEL Routine 01/12/2019 4:14 Re sults for this (7) AM [facility] procedure are i n the results section. POCT-GLUCOSE METER Routine 01/11/2019 8:47 Resul ts for this PM [facility] procedure are i n the results section. POCT-GLUCOSE METER Routine 01/11/2019 4:56 Resul ts for this PM [facility] procedure are i n the results section. POCT-GLUCOSE METER Routine 01/11/2019 11:56 Resul ts for this AM [facility] procedure are i n the results section. POCT-GLUCOSE METER Routine 01/11/2019 9:10 Resul ts for this AM [facility] procedure are i n the results section. US RENAL COMPLETE Routine 01/11/2019 8:59 Result s for this AM [facility] procedure are i n the results section. CBC W/PLT COUNT & Routine 01/11/2019 4:15 Result s for this AUTO DIFFERENTIAL AM [facility] procedure are in the results section. PHOSPHORUS Routine 01/11/2019 4:15 Results for this AM [facility] procedure are i n the results section. MAGNESIUM Routine 01/11/2019 4:15 Results for this AM [facility] procedure are i n the results section. CBC W/PLT COUNT & Routine 01/11/2019 4:15 Result s for this AUTO DIFFERENTIAL AM [facility] procedure are in the results section. BASIC METABOLIC PANEL Routine 01/11/2019 4:15 Re sults for this (7) AM [facility] procedure are i n the results section. POCT-GLUCOSE METER Routine 01/10/2019 10:14 Resul ts for this PM [facility] procedure are i n the results section. POCT-GLUCOSE METER Routine 01/10/2019 4:52 Resul ts for this PM [facility] procedure are i n the results section. CBC W/PLT COUNT & Routine 01/10/2019 2:55 Result s for this AUTO DIFFERENTIAL PM [facility] procedure are in the results section. PTH, INTACT Routine 01/10/2019 2:55 Results for this PM [facility] procedure are i n the results section. CBC W/PLT COUNT & Routine 01/10/2019 2:55 Result s for this AUTO DIFFERENTIAL PM [facility] procedure are in the results section. POCT-GLUCOSE METER Routine 01/10/2019 11:41 Resul ts for this AM [facility] procedure are i n the results section. POCT-GLUCOSE METER Routine 01/10/2019 9:30 Resul ts for this AM [facility] procedure are i n the results section. URIC ACID Add-On 01/10/2019 5:04 Results for this AM [facility] procedure are i n the results section. PHOSPHORUS Routine 01/10/2019 5:04 Results for this AM [facility] procedure are i n the results section. MAGNESIUM Routine 01/10/2019 5:04 Results for this AM [facility] procedure are i n the results section. BASIC METABOLIC PANEL Routine 01/10/2019 5:04 Re sults for this (7) AM [facility] procedure are i n the results section. POCT-GLUCOSE METER Routine 01/09/2019 9:22 Resul ts for this PM [facility] procedure are i n the results section. POCT-GLUCOSE METER Routine 01/09/2019 5:05 Resul ts for this PM [facility] procedure are i n the results section. POCT-GLUCOSE METER Routine 01/09/2019 12:06 Resul ts for this PM [facility] procedure are i n the results section. POCT-GLUCOSE METER Routine 01/09/2019 7:40 Resul ts for this AM [facility] procedure are i n the results section. PHOSPHORUS Routine 01/09/2019 3:45 Results for this AM [facility] procedure are i n the results section. MAGNESIUM Routine 01/09/2019 3:45 Results for this AM [facility] procedure are i n the results section. BASIC METABOLIC PANEL Routine 01/09/2019 3:45 Re sults for this (7) AM [facility] procedure are i n the results section. CBC W/PLT COUNT & Routine 01/09/2019 3:11 Result s for this AUTO DIFFERENTIAL AM [facility] procedure are in the results section. CBC W/PLT COUNT & Routine 01/09/2019 3:11 Result s for this AUTO DIFFERENTIAL AM [facility] procedure are in the results section. TRANSFUSION SERVICE 01/08/2019 5:54 REPORT - SCAN PM [facility] POCT-GLUCOSE METER Routine 01/08/2019 4:43 Resul ts for this PM [facility] procedure are i n the results section. CBC W/PLT COUNT & Routine 01/08/2019 4:36 Result s for this AUTO DIFFERENTIAL PM [facility] procedure are in the results section. CBC W/PLT COUNT & Routine 01/08/2019 4:36 Result s for this AUTO DIFFERENTIAL PM [facility] procedure are in the results section. PHOSPHORUS Routine 01/08/2019 4:36 Results for this PM [facility] procedure are i n the results section. MAGNESIUM Routine 01/08/2019 4:36 Results for this PM [facility] procedure are i n the results section. PT/APTT Routine 01/08/2019 4:36 Results for this PM [facility] procedure are i n the results section. BASIC METABOLIC PANEL Routine 01/08/2019 4:36 Re sults for this (7) PM [facility] procedure are i n the results section. POCT-ACT Routine 01/08/2019 1:08 Results for this PM [facility] procedure are i n the results section. POCT-ACT Routine 01/08/2019 12:08 Results for this PM [facility] procedure are i n the results section. HARVEST,VEIN 01/08/2019 7:30 PAD (peripheral AM [facility] artery disease) (HCC) Case Notes 4 HRS PER E-MAIL Special Needs (ICU BED NEEDED) BYPASS,FEMORAL-PERONEAL 01/08/2019 7:30 AM [facility] PAD (peripheral artery disease) (HCC) Case Notes 4 HRS PER E-MAIL Special Needs (ICU BED NEEDED) CBC W/PLT COUNT & Routine 01/08/2019 6:39 AM Res ults for this AUTO DIFFERENTIAL [facility] procedure are in the results section. CBC W/PLT COUNT & Routine 01/08/2019 6:39 AM Res ults for this AUTO DIFFERENTIAL [facility] procedure are in the results section. POCT-GLUCOSE METER Routine 01/08/2019 6:01 AM Re sults for this [facility] procedure are i n the results section. PREPARE RBC Routine 01/07/2019 7:14 PM Results for this [facility] procedure are i n the results section. TRANSFUSION SERVICE 12/30/2018 5:55 PM REPORT - SCAN [facility] TYPE AND SCREEN, Routine 12/29/2018 10:40 AM Resu lts for this AUTOMATED [facility]YS[facility] procedure are i n the results section. GLUCOSE Routine 12/29/2018 10:40 AM Results for this [facility] procedure are i n the results section. PLATELET COUNT Routine 12/29/2018 10:40 AM Result s for this [facility] procedure are i n the results section. BUN AND CREATININE Routine 12/29/2018 10:40 AM Re sults for this W/RATIO [facility] procedure are i n the results section. ELECTROLYTE PANEL Routine 12/29/2018 10:40 AM Res ults for this [facility] procedure are i n the results section. HEMOGLOBIN Routine 12/29/2018 10:40 AM Results for this [facility] procedure are i n the results section. NM CARDIAC PET Routine 11/26/2018 3:00 PM PAD (peripheral Res ults for this PERFUSION REST AND/OR CDT artery disease) pro cedure are in STRESS (HCC) the results Type 2 diabetes section. mellitus without complication, unspecified whether senior care insulin use (HCC) Atherosclerosis of [place] coronary artery of [place] heart, angina presence unspecified TREADMILL Routine 11/26/2018 2:31 PM Results for this TOLERANCE(NON-NUCLEAR CDT proced ure are in TREADMILL) the results section. ECG 12-LEAD Routine 11/26/2018 2:30 PM Results for this CDT procedure are i n the results section. ECG 12-LEAD Routine 11/26/2018 2:30 PM CDT Procedure Note - Interface, External Ris In - 11/26/2018 2:49 PM CDT Ventricular Rate 59 BPM Atrial Rate 59 BPM P-R Interval 242 ms QRS Duration 120 ms Q-T Interval 520 ms QTC Calculation(Bazett) 514 ms P Allison 72 degrees R Allison 37 degrees T Allison 61 degrees Sinus bradycardia with 1st d egree A-V block Septal infarct , age undeter mined Abnormal ECG TRANSFUSION SERVICE 11/05/2018 6:03 PM REPORT - SCAN CDT CARDIAC CATH REPORT - 11/05/2018 11:22 AM SCAN CDT TRANSFUSION SERVICE 11/04/2018 6:03 PM REPORT - SCAN CDT ANTIBODY IDENTIFICATION Routine 11/04/2018 4:22 PM Results for this CDT procedure are i n the results section. PERIPHERAL ANGIOS / 11/03/2018 10:08 AM PAD (periphera l AORTOGRAM CDT artery disease) (HCC) Case Notes (2)case POP6/ [id number]. ABORH, MANUAL STAT 11/03/2018 9:02 AM CDT Res ults for this procedure are i n the results section . ANTIBODY SCREEN Routine 11/03/2018 8:26 AM CDT R esults for this procedure are i n the results section . TYPE AND SCREEN, AUTOMATED Routine 11/03/2018 8:26 AM CDT Results for this procedure are i n the results section . CBC W/PLT COUNT & AUTO Routine 10/29/2018 11:04 AM CDT Results for this DIFFERENTIAL procedure are i n the results section . BASIC METABOLIC PANEL (7) Routine 10/29/2018 11:04 AM CDT Results for this procedure are i n the results section . CBC W/PLT COUNT & AUTO Routine 10/29/2018 11:04 AM CDT Results for this DIFFERENTIAL procedure are i n the results section . ECG 12-LEAD Routine 10/29/2018 10:34 AM CDT Procedure Note - Interface, External Ris In - 10/29/2018 2:41 PM CDT Ventricular Rate 63 BPM Atrial Rate 63 BPM P-R Interval 208 ms QRS Duration 104 ms Q-T Interval 500 ms QTC Calculation(Bazett) 511 ms P Allison 70 degrees R Allison 29 degrees T Allison 13 degrees Normal sinus rhythm Septal infarct (cited on or before 28-MAY-2018) Prolonged QT Abnormal ECG When compared with ECG of 13:21, No significant change was fo und ECG 12-LEAD Routine 10/29/2018 10:34 AM CDT Resu lts for this procedure are in the results section . after 07/14/2018 Results RHYTHM STRIP - SCAN (01/20/2019 12:50 PM [facility])Only the most recent of3 results within the time period is included. Narrative Performed At This result has an attachment that is no t available. POC-Glucose meter (01/16/2019 11:28 AM [facility]YSIC[facility])Only the most recent of32 results within the time period is included. POC-Glucose Meter 100Comment: : TESTED AT 70 - 110 mg/dL [facility] [id number] [facility], [id number]: Quality Control Tester/Hydrogenation Operator ID = [id number] for BOZENA MONIQUE Specimen Blood Performing Organization Address City/State/Zipcode Phone Number [facility] [address] [place] [address] CENTER Manual Differential (01/16/2019 4:23 AM PHYSICIAN [facility]) % Neutros 59 % [facility] % Lymphs 25 % [facility] % Monos 9 % [facility] % Eos 1 % [facility] % Myelo 1 (H) 0 - 0 % [facility] % Bands 4 0 - 10 % [facility] # Neutros 3.89 1.56 - 6.13 K/ul [facility] # Lymphs 1.65 1.18 - 3.74 K/ul [facility] # Monos 0.59 (H) 0.24 - 0.36 K/uL [facility] # Eos 0.07 0.04 - 0.36 K/uL [facility] # Myelo 0.07 (H) 0.00 - 0.00 K/uL [facility] # Bands 0.26 0.00 - 0.80 K/uL [facility] Total Counted 100 [facility] Platelet Morph[facility] Normal [facility] Hypersegmented Neutrophils Present [facility] Hypochromia 1+ few [facility] An[facility]ocytosis 1+ few [facility] Macrocytes 1+ few [facility] Artifact Present [facility] Platelet Conc Adequate [facility] Specimen Blood Narrative Performed At Received comment: [facility] User comments: Slide comments: Performing Organization Address [facility]/Zipcode Phone Number [facility] [address] [place] [address] [place] CBC with platelet count + automated diff (01/16/2019 4:23 AM PHYSICIAN OFFICE [facility])Only the most recent of9 resultswithin the time period is included. WBC 6.6 3.5 - 10.5 K/L [facility] RBC 2.77 (L) 3.93 - 5.22 M/L [facility] Hemoglobin 8.2 (L) 11.2 - 15.7 GM/DL [facility] Hematocrit 26.6 (L) 34.1 - 44.9 % [facility] MCV 96.0 (H) 79.4 - 94.8 fL [facility] MCH 29.6 25.6 - 32.2 pg [facility] MCHC 30.8 (L) 32.2 - 35.5 GM/DL [facility] RDW 14.9 (H) 11.7 - 14.4 % [facility] Platelets 202 150 - 450 K/CU MM [facility] MPV 11.4 9.4 - 12.3 fL [facility] nRBC 0 0 - 0 /100 WBC [facility] Specimen Blood Performing Organization Address City/Special Care Hospital/Zipcode Phone Number [facility] [address] [place] [address] [place] Basic Metabolic Panel (01/16/2019 4:23 AM PHYSICIAN OFFICE [facility])Only the most recent of8 results within the time period is included. Sodium 142 136 - 145 meq/L [facility] Potassium 4.0 3.5 - 5.1 meq/L [facility] Chloride 112 (H) 98 - 107 meq/L [facility] CO2 25 22 - 29 meq/L [facility] BUN 13 7 - 21 mg/dL [facility] Creatinine 1.28 (H) 0.57 - 1.25 mg/dL [facility] Glucose 89 70 - 105 mg/dL [facility] Calcium 8.9 8.4 - 10.2 mg/dL [facility] EGFR 50Comment: ESTIMATED GFR IS mL/min/1.73 sq m [facility] NOT ACCURATE CREATININE [facility] CLEARANCE IN PREDICTING GLOMERULAR FILTRATION RATE. ESTIMATED GFR IS NOT APPLICABLE FOR DIALYSIS PATIENTS. Specimen Blood Performing Organization Address City/State/Zipcode Phone Number [facility] [address] [place] [address] CENTER US renal complete (01/11/2019 8:59 AM PHYSICIAN OFFICE CLIN [facility]) Specimen Narrative Performed At FINAL REPORT [employer] TECHNIQUE: Grayscale ultrasound of the k idneys and bladder. INDICATION: 73-year-old woman with chron ic kidney disease. COMPARISON: None. FINDINGS: RIGHT KIDNEY: The right kidney measures 8.7 x 4.1 x 4.6 cm. Cortical thickness measures 1.1 cm. No solid mass lesions. No hydronephrosis. Renal artery and vein are patent. LEFT KIDNEY: The left kidney measures 9. 7 x 4.2 x 3.9 cm. Cortical thickness measures 1.7 cm. No solid mass lesions. No hydronephrosis. Renal artery and vein are patent. BLADDER: Unremarkable. IMPRESSION: Unremarkable renal ultrasound. Signed: Silvio Eddy MD Report Verified Date/Time:01/11/2019 10:37:05 Reading Location: [facility] B1 C013Y CT Body R [facility] Room Procedure Note Interface, External Ris In - 01/11/2019 10:39 AM PHYSICIAN OFFICE CLIN ASST FINAL REPORT TECHNIQUE: Grayscale ultrasound of the k idneys and bladder. INDICATION: 73-year-old woman with chron ic kidney disease. COMPARISON: None. FINDINGS: RIGHT KIDNEY: The right kidney measures 8.7 x 4.1 x 4.6 cm. Cortical thickness measures 1.1 cm. No solid mass lesions. No hydronephrosis. Renal artery and vein are patent. LEFT KIDNEY: The left kidney measures 9. 7 x 4.2 x 3.9 cm. Cortical thickness measures 1.7 cm. No solid mass lesions. No hydronephrosis. Renal artery and vein are patent. BLADDER: Unremarkable. IMPRESSION: Unremarkable renal ultrasound. Signed: Silvio Eddy MD Report Verified Date/Time: 01/11/2019 1 0:37:05 Reading Location: [facility] C013Y CT Body R eading Room Performing Organization Address City/State/Zipcode Phone Number RIS Phosphorus (01/11/2019 4:15 AM PHYSICIAN OFFICE CLIN ASST)Only the most recent of4 resultswithin the time period is included. Phosphorus 2.8 2.3 - 4.7 mg/dL [facility] Specimen Blood Performing Organization Address City/[facility]/Zipcode Phone Number [address] [address] CENTER Magnesium (01/11/2019 4:15 AM PHYSICIAN OFFICE CLIN ASST)Only the most recent of4 resultswithin the time period is included. Magnesium 1.9 1.6 - 2.6 mg/dL [facility] Specimen Blood Performing Organization Address City/[facility]/Zipcode Phone Number [address] [address] [place] PTH, intact (01/10/2019 2:55 PM PHYSICIAN OFFICE CLIN ASST) PTH 200.6 (H) 8.5 - 72.5 pg/mL [facility] Specimen Blood Performing Organization Address [facility]/Zipcode Phone Number [address] [address] CENTER Uric acid (01/10/2019 5:04 AM PHYSICIAN OFFICE CLIN ASST) Uric Acid 7.3 (H) 2.6 - 7.2 mg/dL [facility] Specimen Blood Performing Organization Address City/[facility]/Zipcode Phone Number [address] [address] [place] TRANSFUSION SERVICE REPORT - SCAN (01/08/2019 5:54 PM PHYSICIAN OFFICE CLIN ASST)Only the most recent of4 resultswithin the time period is included. Narrative Performed At This result has an attachment that is no t available. PT/aPTT (01/08/2019 4:36 PM PHYSICIAN OFFICE CLIN ASST) Protime 15.7 (H) 11.9 - 14.2 seconds [facility] INR 1.3 <=5.9 [facility] PTT 34.4 22.5 - 36.0 seconds [facility] Specimen Blood Narrative Performed At Effective 07/16/2018: PT Reference Range [facility] Change New: 11.9-14.2Previous: 11.7-14.7 RECOMMENDED COUMADIN/WARFARIN INR THERAPY RANGES STANDARD DOSE: 2.0-3.0Includes: PROPHYLAXIS for venous thrombosis, systemic embolization; TREATMENT for venous thrombosis and/or pulmonary embolus. HIGH RISK: Target INR is 2.5-3.5 for patients wiht mechanical heart valves. Performing Organization Address [facility] Phone Number [address] [address] [place] POC ACTIVATED CLOTTING TIME (01/08/2019 1:08 PM PHYSICIAN OFFICE CLIN ASST)Only the most recent of2 resultswithin the time period is included. Activated Clotting Time 274Comment: Reference sec [facility] Range: 74-137 seconds, MEDICAL [facility]ENTER Baseline/TESTED AT [address] [address] Specimen Blood Performing Organization Address [facility]/Zipcode Phone Number [address] [address] [place] Prepare RBC (01/07/2019 7:14 PM PHYSICIAN OFFICE CLIN ASST) Unit ABO O Pos [place]AF[place] UNIT NUMBER [id number] [place]AFETRACE [place] Status READY SAFETRACE [place] Blood Bank Product RED BLOOD CELLS [place]AF[place]ACE [place] PRODUCT CODE [id number] SAFET[place]ACE [place] Unit ABO O Pos SAFETRACE TX UNIT NUMBER [id number] SAFETRACE [place] Status READY SAFET[place] Blood Bank Product RED BLOOD CELLS [place] PRODUCT CODE [id number] [place]AF[place]ACE [place] CROSSMATCH COMPATIBLE SAFETRACE [place] CROSSMATCH COMPATIBLE [place] Performing Organization Address [facility] Phone Number [place] Type and screen, automated (12/29/2018 10:40 AM PHYSICIAN OFFICE CLIN ASST)Only the most recent of2 resultswithin the time period is included. ABO/RH AUTOMATED (BEAKER) O POSITIVE [facility] Ab Scrn NEGATIVE [facility] Specimen Blood Performing Organization Address [facility] Phone Number [address] [address] BUN and Creatinine (12/29/2018 10:40 AM PHYSICIAN OFFICE CLIN ASST) BUN 26 (H) 7 - 21 mg/dL [facility] Creatinine 1.83 (H) 0.57 - 1.25 mg/dL [facility] EGFR 33Comment: ESTIMATED GFR IS mL/min/1.73 sq m [facility] NOT ACCURATE CREATININE [facility] CLEARANCE IN PREDICTING GLOMERULAR FILTRATION RATE. ESTIMATED GFR IS NOT APPLICABLE FOR DIALYSIS PATIENTS. Specimen Blood Performing Organization Address [facility] Phone Number [address] [address] CENTER Platelet count (12/29/2018 10:40 AM PHYSICIAN OFFICE CLIN ASST) Platelets 112 (L) 150 - 450 K/CU MM [facility] Specimen Blood Performing Organization Address [facility] Phone Number [address] [address] [place] Hemoglobin (12/29/2018 10:40 AM PHYSICIAN OFFICE CLIN ASST) Hemoglobin 13.1 11.2 - 15.7 GM/DL [facility] Specimen Blood Performing Organization Address City/State/Zipcode Phone Number [address] [address] [place] Glucose (12/29/2018 10:40 AM PHYSICIAN OFFICE CLIN ASST) Glucose 134 (H) 70 - 105 mg/dL [facility] Specimen Blood Performing Organization Address City/[facility]/Zipcode Phone Number [address] [address] [place] Electrolytes (12/29/2018 10:40 AM PHYSICIAN OFFICE CLIN ASST) Sodium 138 136 - 145 meq/L [facility] Potassium 4.7 3.5 - 5.1 meq/L [facility] Chloride 107 98 - 107 meq/L [facility] CO2 26 22 - 29 meq/L [facility] Specimen Blood Performing Organization Address City/[facility]/Zipcode Phone Number [address] [address] [place] NM myocardial perfusion PET (rest and stress) (11/26/2018 3:00 PM CDT) Specimen Narrative Performed At FINAL REPORT [employer] PROCEDURE: MYOCARDIAL PERFUSION PET IMAG ING (Rest/Stress) CPT CODE: 37194 INDICATION: Known CAD CARDIOVASCULAR PROFILE: CAD History: Known CAD, CHF Symptoms: None Risk Factors: CAD, diabetes, hypertensio n, dyslipidemia, PAD, family history early CAD BMI: 42.7 Medications: Amiodarone, aspirin, carved ilol, furosemide, Plavix, Crestor, Entresto STRESS PROTOCOL: Pharmacologic stress was achieved with a 10-second intravenous infusion of regadenoson 0.4 mg. The radi opharmaceutical was administered 30 seconds after the start of the regadenoson infusion. IMAGING PROTOCOL: Limited low-dose CT imaging was performe d for attenuation correction. 40.1 mCi of Rb-82 chloride was injected intravenously at rest, and gated PET images were obtained. Then, 40 .1 mCi of Rb-82 chloride was injected intravenously at peak stress, a nd gated PET images were obtained. Image quality is good. REST FINDINGS: HR: 59/min BP: 134/49 mmHg Prelim. EKG: Sinus bradycardia. Perfusion: Normal. Wall Motion: Global hypokinesis (LVEF 38 %). LV Volume: Normal. RV Volume: Normal. STRESS FINDINGS: HR: 65/min (43% of MPHR) BP: 134/49 mmHg Prelim. EKG: No ischemic changes. Symptoms: None (treatment not required). Perfusion: Normal. Wall Motion: Global hypokinesis (LVEF 44 %). LV Volume: Not significantly changed fro m rest. IMPRESSION: 1. Normal study. 2. Normal myocardial perfusion. 3. Decreased resting LVEF, which does no t deteriorate with pharmacologic stress. 4. Normal extracardiac tracer distributi on. 5. There is no prior study for compariso n. Signed: Darrell Naidu MD Report Verified Date/Time:11/26/2018 16:17:24 Reading Location: [address] Med Reading Room Procedure Note Interface, External Ris In - 11/26/2018 4:56 PM CDT FINAL REPORT PROCEDURE: MYOCARDIAL PERFUSION PET IMAG ING (Rest/Stress) CPT CODE: 09923 INDICATION: Known CAD CARDIOVASCULAR PROFILE: CAD History: Known CAD, CHF Symptoms: None Risk Factors: CAD, diabetes, hypertensio n, dyslipidemia, PAD, family history early CAD BMI: 42.7 Medications: Amiodarone, aspirin, carved ilol, furosemide, Plavix, Crestor, Entresto STRESS PROTOCOL: Pharmacologic stress was achieved with a 10-second intravenous infusion of regadenoson 0.4 mg. The radi opharmaceutical was administered 30 seconds after the start of the regadenoson infusion. IMAGING PROTOCOL: Limited low-dose CT imaging was performe d for attenuation correction. 40.1 mCi of Rb-82 chloride was injected intravenously at rest, and gated PET images were obtained. Then, 40 .1 mCi of Rb-82 chloride was injected intravenously at peak stress, a nd gated PET images were obtained. Image quality is good. REST FINDINGS: HR: 59/min BP: 134/49 mmHg Prelim. EKG: Sinus bradycardia. Perfusion: Normal. Wall Motion: Global hypokinesis (LVEF 38 %). LV Volume: Normal. RV Volume: Normal. STRESS FINDINGS: HR: 65/min (43% of MPHR) BP: 134/49 mmHg Prelim. EKG: No ischemic changes. Symptoms: None (treatment not required). Perfusion: Normal. Wall Motion: Global hypokinesis (LVEF 44 %). LV Volume: Not significantly changed fro m rest. IMPRESSION: 1. Normal study. 2. Normal myocardial perfusion. 3. Decreased resting LVEF, which does no t deteriorate with pharmacologic stress. 4. Normal extracardiac tracer distributi on. 5. There is no prior study for compariso n. Signed: Darrell Naidu MD Report Verified Date/Time: 11/26/2018 1 6:17:24 Reading Location: [address] Reading Room Performing Organization Address City/State/Zipcode Phone Number GE RIS Treadmill tolerance(Non-Nuclear Treadmill) (11/26/2018 2:31 PM CDT) Specimen Narrative Performed At Protocol Name Regadenoson GE MUSE Time In Exercise Phase 00:01:00 Max. Systolic BP 137 mmHg Max Diastolic BP 44 mmHg Max Heart Rate 65 BPM Max Predicted Heart Rate 148 BPM Reason For Termination Predetermined end point Reason for Test PAD DM2 Atherosclerosis W/O angina Target HR Formula (220 - Age)*100% Arrhythmias none Resting ECG sinus bradycardia ST Changes No Significant Changes Overall Impression Indeterminate due to pharmacological stress Chest Pain none HR Response To Exercise BP Response To Exercise Amiodarone,ASA,Coreg Lasix,Plavix,Crestor,Entresto Confirmed by fellow Vinicius Church [id number]) on 11/26/2018 3:43:08 PM Confirmed by MD GALLO JORGE ([id number]) on 01/12/2019 12 :40:38 PM Procedure Note Interface, External Ris In - 01/12/2019 12:40 PM PHYSICIAN OFFICE CLIN ASST Protocol Name Regadenoson Time In Exercise Phase 00:01:00 Max. Systolic BP 137 mmHg Max Diastolic BP 44 mmHg Max Heart Rate 65 BPM Max Predicted Heart Rate 148 BPM Reason For Termination Predetermined end point Reason for Test PAD DM2 Atherosclerosis W/O angina Target HR Formula (220 - Age)*100% Arrhythmias none Resting ECG sinus bradycardia ST Changes No Significant Changes Overall Impression Indeterminate due to pharmacological stress Chest Pain none HR Response To Exercise BP Response To Exercise Amiodarone,ASA,Coreg Lasix,Plavix,Crestor,Entresto Confirmed by fellow Vinicius Church ([id number]) on 11/26/2018 3:43:08 PM Confirmed by MD GALLO JORGE ([id number]) on 01/12/2019 12:40:38 PM Performing Organization Address City/State/[facility] Phone Number [facility] ECG 12 lead (11/26/2018 2:30 PM CDT)Only the most recent of2 resultswithin the time period is included. Specimen Narrative Performed At Ventricular Rate 59 BPM GE MUSE Atrial Rate 59 BPM P-R Interval 242 ms QRS Duration 120 ms Q-T Interval 520 ms QTC Calculation(Bazett) 514 ms P Allison 72 degrees R Allison 37 degrees T Allison 61 degrees Sinus bradycardia with 1st degree A-V bl ock Septal infarct , age undetermined Abnormal ECG Confirmed by MD Phillips Mahboob ([id number]) on 11/27/2018 12 :11:21 PM Procedure Note Interface, External Ris In - 11/27/2018 12:11 PM CDT Ventricular Rate 59 BPM Atrial Rate 59 BPM P-R Interval 242 ms QRS Duration 120 ms Q-T Interval 520 ms QTC Calculation(Bazett) 514 ms P Allison 72 degrees R Allison 37 degrees T Allison 61 degrees Sinus bradycardia with 1st degree A-V bl ock Septal infarct , age undetermined Abnormal ECG Confirmed by MD Phillips Mahboob ([id number]) on 11/27/2018 12:11:21 PM Performing Organization Address City/State/Zipcode Phone Number [employer] CARDIAC CATH REPORT - SCAN (11/05/2018 11:22 AM CDT) Narrative Performed At This result has an attachment that is no t available. Antibody identification (11/04/2018 4:22 PM CDT) ANTIBODY ID (DAYO) UNID IgG SAFETRACE T X Antibody Consult SIGNED OUTComment: An IgG antibody of [place] undetermined specificity is detected, transfuse crossmatch compatible RBCs.Electronic Signature: Chuckie Ferro M.D. Specimen Performing Organization Address City/State/Zipcode Phone Number aliza BARRERA (11/03/2018 9:02 AM CDT) ABO Grouping O [facility] Rh Factor POS [facility] Specimen Blood Performing Organization Address [facility]/Zipcode Phone Number [facility] [address] [place] [phone] Antibody screen (11/03/2018 8:26 AM CDT) Ab Scrn POSITIVEComment: PEG. IS - SC1: [facility] 0, SC2: 0, SC3: 0. CC - SC1: [place] 3+, SC2: NT, SC3: 3+. Specimen Blood Performing Organization Address [facility] Phone Number [address] [phone] after 07/14/2018 Insurance Payer Benefit Plan / Group Subscriber ID Type Phone A ddress [employer] - MEDICARE MGD [employer] MEDICARE ADV xxxxxxxxx Maps Contracted CARE Advance Directives For more information, please contact:[address] [phone] Code Status Date Activated Date Inactivated Comments Full Code 01/08/2019 3:54 PM 01/16/2019 6:08 PM This code status was determined by: Patient Full Code 11/03/2018 7:08 AM 11/03/2018 5:06 PM This code status was determined by: Patient Full Code 11/03/2018 7:08 AM 11/03/2018 7:08 AM This code status was determined by: Patient Full Code 06/17/2018 7:46 AM 06/17/2018 10:19 PM This code status was determined by: Patient
--- OUTSIDE RECORDS SUMMARY | 2019-07-15 14:00 | XMS REPORT ---
:1945 Author Organization [facility] t Address [address] [place] [address] Care Team Providers Name Role Phone Franki VILLAGOMEZ Attending Clinician FRANKI Attending Clinician Unavailable Gavino VILLAGOMEZ Attending Clinician FRANKI Admitting Clinician Unavailable Problems This patient has no known problems. Allergies, Adverse Reactions, Alerts This patient has no known allergies or adverse reactions. Medications This patient has no known medications. Procedures This patient has no known procedures. Encounters Start End Encounter Admission Attending Care Care Encounter Source Date/Time Date/Time Type Type Clinicians Facility Department ID 2019-05-27 2019-05-27 Office KWAME Doan [id number] 09:13:18 12:39:17 Visit Jayer AMBULATOR 350.1.13.21 Y 0.2.7.2.686 [id number] 2019-03-18 2019-03-18 Office KWAME Doan [id number] 08:40:49 09:39:44 Visit Jayer AMBULATOR 350.1.13.21 Y 0.2.7.2.686 [id number] 2019-03-04 2019-03-04 Office KWAME Doan [id number] 09:20:10 11:54:55 Visit Jayer AMBULATOR 350.1.13.21 Y 0.2.7.2.686 [id number] 2018-11-17 2018-11-17 Office Michael Mancia [id number] 15:58:42 16:43:42 Visit AMBULATOR 350.1.13.21 Y 0.2.7.2.686 [id number] Results Test Description Test Time Test Comments Results Result Comments Source POCT-GLUCOSE METER 2019-01-16 11:39:00 Test Item Value Reference Range Interpretation Comme nts POC-GLUCOSE METER (BEAKER) 100 mg/dL 70-110 : TESTED AT [facility] [address] [facility] (test code = 1538) BRIAN Paul, [address]: Channel Cementer/Techni charo ID = [id number] for BOZENA MONIQUE CBC W/PLT COUNT & AUTO [id number] 10:30:00 Test Item Value Reference Range Interpretation Comments WHITE BLOOD CELL COUNT (BEAKER) 6.6 K/ L 3.5-10.5 (test code = 775) RED BLOOD CELL COUNT (BEAKER) 2.77 M/ L 3.93-5.22 L (test code = 761) HEMOGLOBIN (BEAKER) (test code = 8.2 GM/DL 11.2-15.7 L 410) HEMATOCRIT (BEAKER) (test code = 26.6 % 34.1-44.9 L 411) MEAN CORPUSCULAR VOLUME (BEAKER) 96.0 fL 79.4-94.8 H (test code = 753) MEAN CORPUSCULAR HEMOGLOBIN 29.6 pg 25.6-32.2 (BEAKER) (test code = 751) MEAN CORPUSCULAR HEMOGLOBIN CONC 30.8 GM/DL 32.2-35.5 L (BEAKER) (test code = 752) RED CELL DISTRIBUTION WIDTH 14.9 % 11.7-14.4 H (BEAKER) (test code = 412) PLATELET COUNT (BEAKER) (test 202 K/CU MM 150-450 code = 756) MEAN PLATELET VOLUME (BEAKER) 11.4 fL 9.4-12.3 (test code = 754) NUCLEATED RED BLOOD CELLS 0 /100 WBC 0-0 (BEAKER) (test code = 413) (CELLAVISION MANUAL DIFF)2019-01-16 10:30:00 Test Item Value Reference Range Interpretation Comments NEUTROPHILS - REL 59 % (CELLAVISION)(BEAKER) (test code = 2816) LYMPHOCYTES - REL 25 % (CELLAVISION)(BEAKER) (test code = 2817) MONOCYTES - REL 9 % (CELLAVISION)(BEAKER) (test code = 2818) EOSINOPHILS - REL 1 % (CELLAVISION)(BEAKER) (test code = 2819) MYELOCYTES - REL 1 % 0-0 H (CELLAVISION)(BEAKER) (test code = 2822) BANDS - REL (CELLAVISION)(BEAKER) 4 % 0-10 (test code = 2826) NEUTROPHILS - ABS 3.89 K/ul 1.56-6.13 (CELLAVISION)(BEAKER) (test code = 2830) LYMPHOCYTES - ABS 1.65 K/ul 1.18-3.74 (CELLAVISION)(BEAKER) (test code = 2831) MONOCYTES - ABS 0.59 K/uL 0.24-0.36 H (CELLAVISION)(BEAKER) (test code = 2832) EOSINOPHILS - ABS 0.07 K/uL 0.04-0.36 (CELLAVISION)(BEAKER) (test code = 2834) MYELOCYTES-ABS 0.07 K/uL 0.00-0.00 H (CELLAVISION)(BEAKER) (test code = 2837) BANDS - ABS (CELLAVISION)(BEAKER) 0.26 K/uL 0.00-0.80 (test code = 2840) TOTAL COUNTED (BEAKER) (test code = 100 1351) PLT MORPHOLOGY (BEAKER) (test code Normal = 486) HYPERSEGMENTATION Present (CELLAVISION)(BEAKER) (test code = 1615) HYPOCHROMIA (BEAKER) (test code = 1+ few 963) ANISOCYTOSIS (BEAKER) (test code = 1+ few 961) MACROCYTES (BEAKER) (test code = 1+ few 964) ARTIFACT (CELLAVISION)(BEAKER) Present (test code = 3432) PLATELET CONCENTRATION Adequate (CELLAVISION)(BEAKER) (test code = 3438) Received comment: User comments: Slide comments:POCT-GLUCOSE [id number] 08:27:00 Test Item Value Reference Range Interpretation Comments POC-GLUCOSE METER 90 mg/dL 70-110 : TESTED A T [facility] 6720 (BEAKER) (test code = [facility], 1538) [address]: Channel Cementer/Techni charo ID = [id number] for BOZENA GOLDBERG BASIC METABOLIC [id number] 05:15:00 Test Item Value Reference Range Interpretation Comments SODIUM (BEAKER) 142 meq/L 136-145 (test code = 381) POTASSIUM (BEAKER) 4.0 meq/L 3.5-5.1 (test code = 379) CHLORIDE (BEAKER) 112 meq/L 98-107 H (test code = 382) CO2 (BEAKER) (test 25 meq/L 22-29 code = 355) BLOOD UREA NITROGEN 13 mg/dL 7-21 (BEAKER) (test code = 354) CREATININE (BEAKER) 1.28 mg/dL 0.57-1.25 H (test code = 358) GLUCOSE RANDOM 89 mg/dL 70-105 (BEAKER) (test code = 652) CALCIUM (BEAKER) 8.9 mg/dL 8.4-10.2 (test code = 697) EGFR (BEAKER) (test 50 mL/min/1.73 ESTIMA RADHA GFR IS code = 1092) sq m NOT ACCURATE CREATININE CLEARANCE IN PREDICTING GLOMERULAR FILTRATION RATE . ESTIMATED GFR I S NOT APPLICABLE FOR DIALYSIS PATIEN TS. POCT-GLUCOSE [id number] 20:27:00 Test Item Value Reference Range Interpretation Comments POC-GLUCOSE METER 119 mg/dL 70-110 H : TESTED A T [facility] 6720 (BEAKER) (test code = [facility] [employer] [facility], 1538) [address]: Channel Cementer/Techni charo ID = [id number] for Santiago peters, Jeffery POCT-GLUCOSE [id number] 17:11:00 Test Item Value Reference Range Interpretation Comments POC-GLUCOSE METER 122 mg/dL 70-110 H : TESTED A T [facility] 6720 (BEAKER) (test code = [facility] [employer] [facility], 1538) 60[address]: Channel Cementer/Techni charo ID = [id number] for Ec at, Cecella POCT-GLUCOSE [id number] 13:01:00 Test Item Value Reference Range Interpretation Comments POC-GLUCOSE METER 113 mg/dL 70-110 H : TESTED A T [facility] 6720 (BEAKER) (test code = [facility], 153) [address]: Channel Cementer/Techni charo ID = [id number] for ANA PALACIO POCT-GLUCOSE [id number] 08:45:00 Test Item Value Reference Range Interpretation Comments POC-GLUCOSE METER 98 mg/dL 70-110 : TESTED A T [facility] 6720 (BEAKER) (test code = [facility], 153) [address]: Channel Cementer/Techni charo ID = [id number] for DENI WILLINGHAM CHIRY POCT-GLUCOSE [id number] 21:07:00 Test Item Value Reference Range Interpretation Comments POC-GLUCOSE METER 84 mg/dL 70-110 : TESTED A T [facility] 6720 (BEAKER) (test code = [facility], 153) [address]: Channel Cementer/Techni charo ID = [id number] for Pk Hammonds POCT-GLUCOSE [id number] 16:47:00 Test Item Value Reference Range Interpretation Comments POC-GLUCOSE METER 108 mg/dL 70-110 : TESTED A T [facility] 6720 (BEAKER) (test code = [facility], 153) 27[address]: Channel Cementer/Techni charo ID = [id number], Hiwitha POCT-GLUCOSE [id number] 15:12:00 Test Item Value Reference Range Interpretation Comments POC-GLUCOSE METER 118 mg/dL 70-110 H : TESTED A T [facility] 6720 (BEAKER) (test code = [facility], 153) [address]: Channel Cementer/Techni charo ID = [id number] for DA VIS, RODGER POCT-GLUCOSE [id number] 15:04:00 Test Item Value Reference Range Interpretation Comments POC-GLUCOSE METER 127 mg/dL 70-110 H : TESTED A T [facility] 6720 (BEAKER) (test code = [facility], 153) 212[address]: Channel Cementer/Techni charo ID = [id number] for HU NTER, HIWITHA POCT-GLUCOSE [id number] 14:34:00 Test Item Value Reference Range Interpretation Comments POC-GLUCOSE METER 89 mg/dL 70-110 : TESTED A T [facility] 6720 (BEAKER) (test code = [facility], 1538) 59[address]: Channel Cementer/Techni charo ID = [id number] for FRANSICO ER, HIWITHA POCT-GLUCOSE [id number] 13:53:00 Test Item Value Reference Range Interpretation Comments POC-GLUCOSE METER 137 mg/dL 70-110 H : TESTED A T [facility] 6720 (BEAKER) (test code = [facility], [facility]) [address]: Channel Cementer/Techni charo ID = [id number], [place] POCT-GLUCOSE [id number] 12:44:00 Test Item Value Reference Range Interpretation Comments POC-GLUCOSE METER 125 mg/dL 70-110 H : TESTED A T [facility] 6720 (BEAKER) (test code = [facility], [facility]8) [address]: Channel Cementer/Techni charo ID = [id number] for VIDYA DAILEY OC POCT-GLUCOSE [id number] 08:33:00 Test Item Value Reference Range Interpretation Comments POC-GLUCOSE METER 112 mg/dL 70-110 H : TESTED A T [facility] 6720 (BEAKER) (test code = [facility], [facility]) [address]: Channel Cementer/Techni charo ID = [id number] for NICO LEANN ANA POCT-GLUCOSE [id number] 07:56:00 Test Item Value Reference Range Interpretation Comments POC-GLUCOSE METER 96 mg/dL 70-110 : TESTED A T [facility] 6720 (BEAKER) (test code = [facility], [facility]) [address]: Channel Cementer/Techni charo ID = [id number] for Danica Pennington BASIC METABOLIC [id number] 07:07:00 Test Item Value Reference Range Interpretation Comments SODIUM (BEAKER) 141 meq/L 136-145 (test code = 381) POTASSIUM (BEAKER) 3.8 meq/L 3.5-5.1 (test code = 379) CHLORIDE (BEAKER) 112 meq/L 98-107 H (test code = 382) CO2 (BEAKER) (test 25 meq/L 22-29 code = 355) BLOOD UREA NITROGEN 17 mg/dL 7-21 (BEAKER) (test code = 354) CREATININE (BEAKER) 1.25 mg/dL 0.57-1.25 (test code = 358) GLUCOSE RANDOM 94 mg/dL 70-105 (BEAKER) (test code = 652) CALCIUM (BEAKER) 8.6 mg/dL 8.4-10.2 (test code = 697) EGFR (BEAKER) (test 51 mL/min/1.73 ESTIMA RADHA GFR IS code = 1092) sq m NOT ACCURATE CREATININE CLEARANCE IN PREDICTING GLOMERULAR FILTRATION RATE . ESTIMATED GFR I S NOT APPLICABLE FOR DIALYSIS PATIEN TS. CBC W/PLT COUNT & AUTO [id number] 06:52:00 Test Item Value Reference Range Interpretation Comments WHITE BLOOD CELL COUNT (BEAKER) 4.8 K/ L 3.5-10.5 (test code = 775) RED BLOOD CELL COUNT (BEAKER) 2.92 M/ L 3.93-5.22 L (test code = 761) HEMOGLOBIN (BEAKER) (test code = 8.6 GM/DL 11.2-15.7 L 410) HEMATOCRIT (BEAKER) (test code = 27.9 % 34.1-44.9 L 411) MEAN CORPUSCULAR VOLUME (BEAKER) 95.5 fL 79.4-94.8 H (test code = 753) MEAN CORPUSCULAR HEMOGLOBIN 29.5 pg 25.6-32.2 (BEAKER) (test code = 751) MEAN CORPUSCULAR HEMOGLOBIN CONC 30.8 GM/DL 32.2-35.5 L (BEAKER) (test code = 752) RED CELL DISTRIBUTION WIDTH 14.7 % 11.7-14.4 H (BEAKER) (test code = 412) PLATELET COUNT (BEAKER) (test 130 K/CU MM 150-450 L code = 756) MEAN PLATELET VOLUME (BEAKER) 12.0 fL 9.4-12.3 (test code = 754) NUCLEATED RED BLOOD CELLS 0 /100 WBC 0-0 (BEAKER) (test code = 413) NEUTROPHILS RELATIVE PERCENT 64 % (BEAKER) (test code = 429) LYMPHOCYTES RELATIVE PERCENT 20 % (BEAKER) (test code = 430) MONOCYTES RELATIVE PERCENT 11 % (BEAKER) (test code = 431) EOSINOPHILS RELATIVE PERCENT 3 % (BEAKER) (test code = 432) BASOPHILS RELATIVE PERCENT 1 % (BEAKER) (test code = 437) NEUTROPHILS ABSOLUTE COUNT 3.07 K/ L 1.56-6.13 (BEAKER) (test code = 670) LYMPHOCYTES ABSOLUTE COUNT 0.97 K/ L 1.18-3.74 L (BEAKER) (test code = 414) MONOCYTES ABSOLUTE COUNT (BEAKER) 0.52 K/ L 0.24-0.36 H (test code = 415) EOSINOPHILS ABSOLUTE COUNT 0.13 K/ L 0.04-0.36 (BEAKER) (test code = 416) BASOPHILS ABSOLUTE COUNT (BEAKER) 0.05 K/ L 0.01-0.08 (test code = 417) IMMATURE GRANULOCYTES-RELATIVE 2 % 0-1 H PERCENT (BEAKER) (test code = 2801) POCT-GLUCOSE [id number] 21:36:00 Test Item Value Reference Range Interpretation Comments POC-GLUCOSE METER 143 mg/dL 70-110 H : TESTED A T [facility] 6720 (BEAKER) (test code = [facility], 1538) [address]: Channel Cementer/Techni charo ID = [id number] for DA VIS, RODGER POCT-GLUCOSE [id number] 19:20:00 Test Item Value Reference Range Interpretation Comments POC-GLUCOSE METER 117 mg/dL 70-110 H : TESTED A T [facility] 6720 (BEAKER) (test code = [facility], 1538) 28[address]: Channel Cementer/Techni charo ID = [id number] for DA VIS, RODGER POCT-GLUCOSE [id number] 09:30:00 Test Item Value Reference Range Interpretation Comments POC-GLUCOSE METER 100 mg/dL 70-110 : TESTED A T [facility] 6720 (BEAKER) (test code = [facility], 1538) 298[address]: Channel Cementer/Techni charo ID = [id number] for ANA PALACIO BASIC METABOLIC [id number] 05:18:00 Test Item Value Reference Range Interpretation Comments SODIUM (BEAKER) 140 meq/L 136-145 (test code = 381) POTASSIUM (BEAKER) 3.9 meq/L 3.5-5.1 (test code = 379) CHLORIDE (BEAKER) 111 meq/L 98-107 H (test code = 382) CO2 (BEAKER) (test 23 meq/L 22-29 code = 355) BLOOD UREA NITROGEN 20 mg/dL 7-21 (BEAKER) (test code = 354) CREATININE (BEAKER) 1.36 mg/dL 0.57-1.25 H (test code = 358) GLUCOSE RANDOM 111 mg/dL 70-105 H (BEAKER) (test code = 652) CALCIUM (BEAKER) 8.8 mg/dL 8.4-10.2 (test code = 697) EGFR (BEAKER) (test 46 mL/min/1.73 ESTIMA RADHA GFR IS code = 1092) sq m NOT ACCURATE CREATININE CLEARANCE IN PREDICTING GLOMERULAR FILTRATION RATE . ESTIMATED GFR I S NOT APPLICABLE FOR DIALYSIS PATIEN TS. CBC W/PLT COUNT & AUTO [id number] 04:37:00 Test Item Value Reference Range Interpretation Comments WHITE BLOOD CELL COUNT (BEAKER) 5.6 K/ L 3.5-10.5 (test code = 775) RED BLOOD CELL COUNT (BEAKER) 2.90 M/ L 3.93-5.22 L (test code = 761) HEMOGLOBIN (BEAKER) (test code = 8.7 GM/DL 11.2-15.7 L 410) HEMATOCRIT (BEAKER) (test code = 28.0 % 34.1-44.9 L 411) MEAN CORPUSCULAR VOLUME (BEAKER) 96.6 fL 79.4-94.8 H (test code = 753) MEAN CORPUSCULAR HEMOGLOBIN 30.0 pg 25.6-32.2 (BEAKER) (test code = 751) MEAN CORPUSCULAR HEMOGLOBIN CONC 31.1 GM/DL 32.2-35.5 L (BEAKER) (test code = 752) RED CELL DISTRIBUTION WIDTH 14.7 % 11.7-14.4 H (BEAKER) (test code = 412) PLATELET COUNT (BEAKER) (test 111 K/CU MM 150-450 L code = 756) MEAN PLATELET VOLUME (BEAKER) 12.5 fL 9.4-12.3 H (test code = 754) NUCLEATED RED BLOOD CELLS 0 /100 WBC 0-0 (BEAKER) (test code = 413) NEUTROPHILS RELATIVE PERCENT 71 % (BEAKER) (test code = 429) LYMPHOCYTES RELATIVE PERCENT 17 % (BEAKER) (test code = 430) MONOCYTES RELATIVE PERCENT 10 % (BEAKER) (test code = 431) EOSINOPHILS RELATIVE PERCENT 1 % (BEAKER) (test code = 432) BASOPHILS RELATIVE PERCENT 1 % (BEAKER) (test code = 437) NEUTROPHILS ABSOLUTE COUNT 3.96 K/ L 1.56-6.13 (BEAKER) (test code = 670) LYMPHOCYTES ABSOLUTE COUNT 0.93 K/ L 1.18-3.74 L (BEAKER) (test code = 414) MONOCYTES ABSOLUTE COUNT (BEAKER) 0.53 K/ L 0.24-0.36 H (test code = 415) EOSINOPHILS ABSOLUTE COUNT 0.06 K/ L 0.04-0.36 (BEAKER) (test code = 416) BASOPHILS ABSOLUTE COUNT (BEAKER) 0.03 K/ L 0.01-0.08 (test code = 417) IMMATURE GRANULOCYTES-RELATIVE 1 % 0-1 PERCENT (BEAKER) (test code = 2801) POCT-GLUCOSE [id number] 20:59:00 Test Item Value Reference Range Interpretation Comments POC-GLUCOSE METER 95 mg/dL 70-110 : TESTED A T [facility] 6720 (BEAKER) (test code = [facility], 153) 01187: Channel Cementer/Techni charo ID = [id number] for RODGER SPARKS POCT-GLUCOSE [id number] 17:08:00 Test Item Value Reference Range Interpretation Comments POC-GLUCOSE METER 90 mg/dL 70-110 : TESTED A T [facility] 6720 (BEAKER) (test code = [facility], 153) 62144: Channel Cementer/Techni charo ID = [id number] for BELLE CHAPA POCT-GLUCOSE [id number] 12:10:00 Test Item Value Reference Range Interpretation Comments POC-GLUCOSE METER 118 mg/dL 70-110 H : TESTED A T [facility] 6720 (BEAKER) (test code = [facility], 153) 11298: Channel Cementer/Techni charo ID = [id number] for BELLE GRIFFITHS U/S, RENAL, [id number] 10:37:00Reason for exam:->ckdFINAL REPORT TECHNIQUE: Grayscale ultrasound [...] MDReport Verified Date/Time: 01/11/2019 10:37:05 Reading Location: [facility] C013Y CT Body Reading Room POCT-GLUCOSE [id number] 09:22:00 Test Item Value Reference Range Interpretation Comments POC-GLUCOSE METER 75 mg/dL 70-110 : TESTED A T [facility] 6720 (BEAKER) (test code = [facility] [place], 1538) [address]: Channel Cementer/Techni charo ID = [id number] for ROBE DRISCOLLWITHAmy [id number] 04:57:00 Test Item Value Reference Range Interpretation Comments PHOSPHORUS (BEAKER) (test code = 2.8 mg/dL 2.3-4.7 604) [id number] 04:57:00 Test Item Value Reference Range Interpretation Comments MAGNESIUM (BEAKER) (test code = 1.9 mg/dL 1.6-2.6 627) BASIC METABOLIC [id number] 04:57:00 Test Item Value Reference Range Interpretation Comments SODIUM (BEAKER) 137 meq/L 136-145 (test code = 381) POTASSIUM (BEAKER) 4.0 meq/L 3.5-5.1 (test code = 379) CHLORIDE (BEAKER) 111 meq/L 98-107 H (test code = 382) CO2 (BEAKER) (test 21 meq/L 22-29 L code = 355) BLOOD UREA NITROGEN 22 mg/dL 7-21 H (BEAKER) (test code = 354) CREATININE (BEAKER) 1.38 mg/dL 0.57-1.25 H (test code = 358) GLUCOSE RANDOM 81 mg/dL 70-105 (BEAKER) (test code = 652) CALCIUM (BEAKER) 8.4 mg/dL 8.4-10.2 (test code = 697) EGFR (BEAKER) (test 46 mL/min/1.73 ESTIMA RADHA GFR IS code = 1092) sq m NOT ACCURATE CREATININE CLEARANCE IN PREDICTING GLOMERULAR FILTRATION RATE . ESTIMATED GFR I S NOT APPLICABLE FOR DIALYSIS PATIEN TS. CBC W/PLT COUNT & AUTO [id number] 04:32:00 Test Item Value Reference Range Interpretation Comments WHITE BLOOD CELL COUNT (BEAKER) 6.9 K/ L 3.5-10.5 (test code = 775) RED BLOOD CELL COUNT (BEAKER) 2.98 M/ L 3.93-5.22 L (test code = 761) HEMOGLOBIN (BEAKER) (test code = 8.9 GM/DL 11.2-15.7 L 410) HEMATOCRIT (BEAKER) (test code = 28.9 % 34.1-44.9 L 411) MEAN CORPUSCULAR VOLUME (BEAKER) 97.0 fL 79.4-94.8 H (test code = 753) MEAN CORPUSCULAR HEMOGLOBIN 29.9 pg 25.6-32.2 (BEAKER) (test code = 751) MEAN CORPUSCULAR HEMOGLOBIN CONC 30.8 GM/DL 32.2-35.5 L (BEAKER) (test code = 752) RED CELL DISTRIBUTION WIDTH 15.0 % 11.7-14.4 H (BEAKER) (test code = 412) PLATELET COUNT (BEAKER) (test code 80 K/CU MM 150-450 L = 756) MEAN PLATELET VOLUME (BEAKER) 12.5 fL 9.4-12.3 H (test code = 754) NUCLEATED RED BLOOD CELLS (BEAKER) 0 /100 WBC 0-0 (test code = 413) NEUTROPHILS RELATIVE PERCENT 78 % (BEAKER) (test code = 429) LYMPHOCYTES RELATIVE PERCENT 10 % (BEAKER) (test code = 430) MONOCYTES RELATIVE PERCENT 10 % (BEAKER) (test code = 431) EOSINOPHILS RELATIVE PERCENT 1 % (BEAKER) (test code = 432) BASOPHILS RELATIVE PERCENT 0 % (BEAKER) (test code = 437) NEUTROPHILS ABSOLUTE COUNT 5.44 K/ L 1.56-6.13 (BEAKER) (test code = 670) LYMPHOCYTES ABSOLUTE COUNT 0.72 K/ L 1.18-3.74 L (BEAKER) (test code = 414) MONOCYTES ABSOLUTE COUNT (BEAKER) 0.69 K/ L 0.24-0.36 H (test code = 415) EOSINOPHILS ABSOLUTE COUNT 0.04 K/ L 0.04-0.36 (BEAKER) (test code = 416) BASOPHILS ABSOLUTE COUNT (BEAKER) 0.02 K/ L 0.01-0.08 (test code = 417) IMMATURE GRANULOCYTES-RELATIVE 0 % 0-1 PERCENT (BEAKER) (test code = 2801) POCT-GLUCOSE [id number] 22:26:00 Test Item Value Reference Range Interpretation Comments POC-GLUCOSE METER 95 mg/dL 70-110 : TESTED A T [facility] 6720 (BEAKER) (test code = [facility], 1538) 740[address]: Channel Cementer/Techni charo ID = [id number] for Beena Reed POCT-GLUCOSE [id number] 17:04:00 Test Item Value Reference Range Interpretation Comments POC-GLUCOSE METER 98 mg/dL 70-110 : TESTED A T [facility] 6720 (BEAKER) (test code = [facility] [employer] [facility], 1538) 43419: Channel Cementer/Techni charo ID = [id number] for BELLE CHAPA PTH, [id number] 16:02:00 Test Item Value Reference Range Interpretation Comments PARATHYROID HORMONE INTACT 200.6 pg/mL 8.5-72.5 H (BEAKER) (test code = 577) CBC W/PLT COUNT & AUTO [id number] 15:09:00 Test Item Value Reference Range Interpretation Comments WHITE BLOOD CELL COUNT (BEAKER) 9.2 K/ L 3.5-10.5 (test code = 775) RED BLOOD CELL COUNT (BEAKER) 2.63 M/ L 3.93-5.22 L (test code = 761) HEMOGLOBIN (BEAKER) (test code = 8.1 GM/DL 11.2-15.7 L 410) HEMATOCRIT (BEAKER) (test code = 25.6 % 34.1-44.9 L 411) MEAN CORPUSCULAR VOLUME (BEAKER) 97.3 fL 79.4-94.8 H (test code = 753) MEAN CORPUSCULAR HEMOGLOBIN 30.8 pg 25.6-32.2 (BEAKER) (test code = 751) MEAN CORPUSCULAR HEMOGLOBIN CONC 31.6 GM/DL 32.2-35.5 L (BEAKER) (test code = 752) RED CELL DISTRIBUTION WIDTH 15.0 % 11.7-14.4 H (BEAKER) (test code = 412) PLATELET COUNT (BEAKER) (test code 71 K/CU MM 150-450 L = 756) MEAN PLATELET VOLUME (BEAKER) 12.3 fL 9.4-12.3 (test code = 754) NUCLEATED RED BLOOD CELLS (BEAKER) 0 /100 WBC 0-0 (test code = 413) NEUTROPHILS RELATIVE PERCENT 80 % (BEAKER) (test code = 429) LYMPHOCYTES RELATIVE PERCENT 9 % (BEAKER) (test code = 430) MONOCYTES RELATIVE PERCENT 11 % (BEAKER) (test code = 431) EOSINOPHILS RELATIVE PERCENT 0 % (BEAKER) (test code = 432) BASOPHILS RELATIVE PERCENT 0 % (BEAKER) (test code = 437) NEUTROPHILS ABSOLUTE COUNT 7.31 K/ L 1.56-6.13 H (BEAKER) (test code = 670) LYMPHOCYTES ABSOLUTE COUNT 0.80 K/ L 1.18-3.74 L (BEAKER) (test code = 414) MONOCYTES ABSOLUTE COUNT (BEAKER) 0.97 K/ L 0.24-0.36 H (test code = 415) EOSINOPHILS ABSOLUTE COUNT 0.01 K/ L 0.04-0.36 L (BEAKER) (test code = 416) BASOPHILS ABSOLUTE COUNT (BEAKER) 0.02 K/ L 0.01-0.08 (test code = 417) IMMATURE GRANULOCYTES-RELATIVE 1 % 0-1 PERCENT (BEAKER) (test code = 2801) POCT-GLUCOSE [id number] 11:53:00 Test Item Value Reference Range Interpretation Comments POC-GLUCOSE METER 132 mg/dL 70-110 H : TESTED A T [facility] (BEAKER) (test code = JOSE [place], 1538) [id number]: Channel Cementer/Techni charo ID = [id number] for Cici Isaacs POCT-GLUCOSE [id number] 09:42:00 Test Item Value Reference Range Interpretation Comments POC-GLUCOSE METER 112 mg/dL 70-110 H : TESTED A T [facility] (BEAKER) (test code = JOSE G [place], 1538) [id number]: Channel Cementer/Techni charo ID = [id number] for Cici Isaacs URIC [id number] 09:14:00 Test Item Value Reference Range Interpretation Comments URIC ACID (BEAKER) (test code = 7.3 mg/dL 2.6-7.2 H 773) [id number] 06:14:00 Test Item Value Reference Range Interpretation Comments PHOSPHORUS (BEAKER) (test code = 2.8 mg/dL 2.3-4.7 604) [id number] 06:14:00 Test Item Value Reference Range Interpretation Comments MAGNESIUM (BEAKER) (test code = 1.9 mg/dL 1.6-2.6 627) BASIC METABOLIC [id number] 06:14:00 Test Item Value Reference Range Interpretation Comments SODIUM (BEAKER) 138 meq/L 136-145 (test code = 381) POTASSIUM (BEAKER) 4.0 meq/L 3.5-5.1 (test code = 379) CHLORIDE (BEAKER) 111 meq/L 98-107 H (test code = 382) CO2 (BEAKER) (test 21 meq/L 22-29 L code = 355) BLOOD UREA NITROGEN 23 mg/dL 7-21 H (BEAKER) (test code = 354) CREATININE (BEAKER) 1.53 mg/dL 0.57-1.25 H (test code = 358) GLUCOSE RANDOM 134 mg/dL 70-105 H (BEAKER) (test code = 652) CALCIUM (BEAKER) 8.4 mg/dL 8.4-10.2 (test code = 697) EGFR (BEAKER) (test 40 mL/min/1.73 ESTIMA RADHA GFR IS code = 1092) sq m NOT ACCURATE CREATININE CLEARANCE IN PREDICTING GLOMERULAR FILTRATION RATE . ESTIMATED GFR I S NOT APPLICABLE FOR DIALYSIS PATIEN TS. POCT-GLUCOSE [id number] 21:33:00 Test Item Value Reference Range Interpretation Comments POC-GLUCOSE METER 113 mg/dL 70-110 H : TESTED A T [facility] (BEAKER) (test code = JOSE G James [place], 1538) [id number]: Channel Cementer/Techni charo ID = [id number] for RODGER JONES POCT-GLUCOSE [id number] 17:16:00 Test Item Value Reference Range Interpretation Comments POC-GLUCOSE METER 113 mg/dL 70-110 H : TESTED A T [facility] (BEAKER) (test code = [facility], 1538) [id number]: Channel Cementer/Techni charo ID = [id number] for RIDDHI AGUILAR POCT-GLUCOSE [id number] 12:17:00 Test Item Value Reference Range Interpretation Comments POC-GLUCOSE METER 166 mg/dL 70-110 H : TESTED A T [facility] (BEAKER) (test code = [facility], 1538) [id number]: Channel Cementer/Techni charo ID = [id number] for CHINTAN MCCLELLAND POCT-GLUCOSE [id number] 07:51:00 Test Item Value Reference Range Interpretation Comments POC-GLUCOSE METER 143 mg/dL 70-110 H : TESTED A T [facility] (BEAKER) (test code = [facility], 1538) [id number]: Channel Cementer/Techni charo ID = [id number] for Pe meaghan, Neena [id number] 06:28:00 Test Item Value Reference Range Interpretation Comments MAGNESIUM (BEAKER) 1.8 mg/dL 1.6-2.6 Specimen slightly (test code = 627) hemolyzed [id number] 06:28:00 Test Item Value Reference Range Interpretation Comments PHOSPHORUS (BEAKER) 2.5 mg/dL 2.3-4.7 Specimen slightly (test code = 604) hemolyzed BASIC METABOLIC [id number] 06:28:00 Test Item Value Reference Range Interpretation Comments SODIUM (BEAKER) 139 meq/L 136-145 (test code = 381) POTASSIUM (BEAKER) 4.5 meq/L 3.5-5.1 Specimen slightly (test code = 379) hemolyzed CHLORIDE (BEAKER) 112 meq/L 98-107 H (test code = 382) CO2 (BEAKER) (test 19 meq/L 22-29 L code = 355) BLOOD UREA NITROGEN 21 mg/dL 7-21 (BEAKER) (test code = 354) CREATININE (BEAKER) 1.38 mg/dL 0.57-1.25 H Specimen slightly (test code = 358) hemolyzed GLUCOSE RANDOM 188 mg/dL 70-105 H (BEAKER) (test code = 652) CALCIUM (BEAKER) 8.4 mg/dL 8.4-10.2 (test code = 697) EGFR (BEAKER) (test 46 mL/min/1.73 ESTIMA RADHA GFR IS code = 1092) sq m NOT ACCURATE CREATININE CLEARANCE IN PREDICTING GLOMERULAR FILTRATION RATE . ESTIMATED GFR I S NOT APPLICABLE FOR DIALYSIS PATIEN TS. CBC W/PLT COUNT & AUTO [id number] 04:20:00 Test Item Value Reference Range Interpretation Comments WHITE BLOOD CELL COUNT (BEAKER) 10.0 K/ L 3.5-10.5 (test code = 775) RED BLOOD CELL COUNT (BEAKER) 3.47 M/ L 3.93-5.22 L (test code = 761) HEMOGLOBIN (BEAKER) (test code = 10.2 GM/DL 11.2-15.7 L 410) HEMATOCRIT (BEAKER) (test code = 32.6 % 34.1-44.9 L 411) MEAN CORPUSCULAR VOLUME (BEAKER) 93.9 fL 79.4-94.8 (test code = 753) MEAN CORPUSCULAR HEMOGLOBIN 29.4 pg 25.6-32.2 (BEAKER) (test code = 751) MEAN CORPUSCULAR HEMOGLOBIN CONC 31.3 GM/DL 32.2-35.5 L (BEAKER) (test code = 752) RED CELL DISTRIBUTION WIDTH 14.6 % 11.7-14.4 H (BEAKER) (test code = 412) PLATELET COUNT (BEAKER) (test 121 K/CU MM 150-450 L code = 756) MEAN PLATELET VOLUME (BEAKER) 12.9 fL 9.4-12.3 H (test code = 754) NUCLEATED RED BLOOD CELLS 0 /100 WBC 0-0 (BEAKER) (test code = 413) NEUTROPHILS RELATIVE PERCENT 84 % (BEAKER) (test code = 429) LYMPHOCYTES RELATIVE PERCENT 5 % (BEAKER) (test code = 430) MONOCYTES RELATIVE PERCENT 10 % (BEAKER) (test code = 431) EOSINOPHILS RELATIVE PERCENT 0 % (BEAKER) (test code = 432) BASOPHILS RELATIVE PERCENT 0 % (BEAKER) (test code = 437) NEUTROPHILS ABSOLUTE COUNT 8.40 K/ L 1.56-6.13 H (BEAKER) (test code = 670) LYMPHOCYTES ABSOLUTE COUNT 0.50 K/ L 1.18-3.74 L (BEAKER) (test code = 414) MONOCYTES ABSOLUTE COUNT (BEAKER) 0.97 K/ L 0.24-0.36 H (test code = 415) EOSINOPHILS ABSOLUTE COUNT 0.00 K/ L 0.04-0.36 L (BEAKER) (test code = 416) BASOPHILS ABSOLUTE COUNT (BEAKER) 0.03 K/ L 0.01-0.08 (test code = 417) IMMATURE GRANULOCYTES-RELATIVE 1 % 0-1 PERCENT (BEAKER) (test code = 2801) [id number] 17:40:00 Test Item Value Reference Range Interpretation Comments PHOSPHORUS (BEAKER) (test code = 3.3 mg/dL 2.3-4.7 604) [id number] 17:40:00 Test Item Value Reference Range Interpretation Comments MAGNESIUM (BEAKER) (test code = 1.8 mg/dL 1.6-2.6 627) BASIC METABOLIC [id number] 17:40:00 Test Item Value Reference Range Interpretation Comments SODIUM (BEAKER) 140 meq/L 136-145 (test code = 381) POTASSIUM (BEAKER) 4.6 meq/L 3.5-5.1 (test code = 379) CHLORIDE (BEAKER) 112 meq/L 98-107 H (test code = 382) CO2 (BEAKER) (test 21 meq/L 22-29 L code = 355) BLOOD UREA NITROGEN 20 mg/dL 7-21 (BEAKER) (test code = 354) CREATININE (BEAKER) 1.46 mg/dL 0.57-1.25 H (test code = 358) GLUCOSE RANDOM 215 mg/dL 70-105 H (BEAKER) (test code = 652) CALCIUM (BEAKER) 8.2 mg/dL 8.4-10.2 L (test code = 697) EGFR (BEAKER) (test 43 mL/min/1.73 ESTIMA RADHA GFR IS code = 1092) sq m NOT ACCURATE CREATININE CLEARANCE IN PREDICTING GLOMERULAR FILTRATION RATE . ESTIMATED GFR I S NOT APPLICABLE FOR DIALYSIS PATIEN TS. [id number] 17:03:00 Test Item Value Reference Range Interpretation Comments PROTIME (BEAKER) (test code = 15.7 seconds 11.9-14.2 H 759) INR (BEAKER) (test code = 370) 1.3 <=5.9 PARTIAL THROMBOPLASTIN TIME 34.4 seconds 22.5-36.0 (BEAKER) (test code = 760) Effective 07/16/2018: PT Reference Range ChangeNew: 11.9-14.2 Previous: 11.7- 14.7RECOMMENDED COUMADIN/WARFARIN INR THERAPY RANGESSTANDARD DOSE: 2.0-3.0 Includes: PROPHYLAXIS for venous thrombosis, systemic embolization; TREATMENT for venous thrombosis and/or pulmonary embolus.HIGH RISK: Target INR is2.5-3.5 for patients wiht mechanical heart valves.CBC W/PLT COUNT & AUTO [id number] 16:56:00 Test Item Value Reference Range Interpretation Comments WHITE BLOOD CELL COUNT (BEAKER) 8.4 K/ L 3.5-10.5 (test code = 775) RED BLOOD CELL COUNT (BEAKER) 3.69 M/ L 3.93-5.22 L (test code = 761) HEMOGLOBIN (BEAKER) (test code = 11.0 GM/DL 11.2-15.7 L 410) HEMATOCRIT (BEAKER) (test code = 35.4 % 34.1-44.9 411) MEAN CORPUSCULAR VOLUME (BEAKER) 95.9 fL 79.4-94.8 H (test code = 753) MEAN CORPUSCULAR HEMOGLOBIN 29.8 pg 25.6-32.2 (BEAKER) (test code = 751) MEAN CORPUSCULAR HEMOGLOBIN CONC 31.1 GM/DL 32.2-35.5 L (BEAKER) (test code = 752) RED CELL DISTRIBUTION WIDTH 14.4 % 11.7-14.4 (BEAKER) (test code = 412) PLATELET COUNT (BEAKER) (test 119 K/CU MM 150-450 L code = 756) MEAN PLATELET VOLUME (BEAKER) 12.2 fL 9.4-12.3 (test code = 754) NUCLEATED RED BLOOD CELLS 0 /100 WBC 0-0 (BEAKER) (test code = 413) NEUTROPHILS RELATIVE PERCENT 79 % (BEAKER) (test code = 429) LYMPHOCYTES RELATIVE PERCENT 11 % (BEAKER) (test code = 430) MONOCYTES RELATIVE PERCENT 9 % (BEAKER) (test code = 431) EOSINOPHILS RELATIVE PERCENT 0 % (BEAKER) (test code = 432) BASOPHILS RELATIVE PERCENT 1 % (BEAKER) (test code = 437) NEUTROPHILS ABSOLUTE COUNT 6.62 K/ L 1.56-6.13 H (BEAKER) (test code = 670) LYMPHOCYTES ABSOLUTE COUNT 0.88 K/ L 1.18-3.74 L (BEAKER) (test code = 414) MONOCYTES ABSOLUTE COUNT (BEAKER) 0.78 K/ L 0.24-0.36 H (test code = 415) EOSINOPHILS ABSOLUTE COUNT 0.03 K/ L 0.04-0.36 L (BEAKER) (test code = 416) BASOPHILS ABSOLUTE COUNT (BEAKER) 0.04 K/ L 0.01-0.08 (test code = 417) IMMATURE GRANULOCYTES-RELATIVE 0 % 0-1 PERCENT (BEAKER) (test code = 2801) POCT-GLUCOSE [id number] 16:55:00 Test Item Value Reference Range Interpretation Comments POC-GLUCOSE METER 200 mg/dL 70-110 H : TESTED A T [place] [address] (BEAKER) (test code = [facility], 1538) [id number]: Channel Cementer/Techni charo ID = [id number] for JOSE DENNEY [id number] 13:51:00 Test Item Value Reference Range Interpretation Comments ACTIVATED CLOTTING TIME 274 sec Refe rence Range: (BEAKER) (test code = 74-137 seconds, 441) Baseline/TESTED AT [place] [id number] [facility] [address] [id number] 13:51:00 Test Item Value Reference Range Interpretation Comments ACTIVATED CLOTTING TIME 323 sec Refe rence Range: (BEAKER) (test code = 74-137 seconds, 441) Baseline/TESTED AT [address] [address] CBC W/PLT COUNT & AUTO [id number] 07:44:00 Test Item Value Reference Range Interpretation Comments WHITE BLOOD CELL COUNT (BEAKER) 4.0 K/ L 3.5-10.5 (test code = 775) RED BLOOD CELL COUNT (BEAKER) 4.15 M/ L 3.93-5.22 (test code = 761) HEMOGLOBIN (BEAKER) (test code = 12.5 GM/DL 11.2-15.7 410) HEMATOCRIT (BEAKER) (test code = 40.1 % 34.1-44.9 411) MEAN CORPUSCULAR VOLUME (BEAKER) 96.6 fL 79.4-94.8 H (test code = 753) MEAN CORPUSCULAR HEMOGLOBIN 30.1 pg 25.6-32.2 (BEAKER) (test code = 751) MEAN CORPUSCULAR HEMOGLOBIN CONC 31.2 GM/DL 32.2-35.5 L (BEAKER) (test code = 752) RED CELL DISTRIBUTION WIDTH 14.6 % 11.7-14.4 H (BEAKER) (test code = 412) PLATELET COUNT (BEAKER) (test code 99 K/CU MM 150-450 L = 756) MEAN PLATELET VOLUME (BEAKER) 12.6 fL 9.4-12.3 H (test code = 754) NUCLEATED RED BLOOD CELLS (BEAKER) 0 /100 WBC 0-0 (test code = 413) NEUTROPHILS RELATIVE PERCENT 57 % (BEAKER) (test code = 429) LYMPHOCYTES RELATIVE PERCENT 28 % (BEAKER) (test code = 430) MONOCYTES RELATIVE PERCENT 12 % (BEAKER) (test code = 431) EOSINOPHILS RELATIVE PERCENT 2 % (BEAKER) (test code = 432) BASOPHILS RELATIVE PERCENT 1 % (BEAKER) (test code = 437) NEUTROPHILS ABSOLUTE COUNT 2.27 K/ L 1.56-6.13 (BEAKER) (test code = 670) LYMPHOCYTES ABSOLUTE COUNT 1.10 K/ L 1.18-3.74 L (BEAKER) (test code = 414) MONOCYTES ABSOLUTE COUNT (BEAKER) 0.48 K/ L 0.24-0.36 H (test code = 415) EOSINOPHILS ABSOLUTE COUNT 0.09 K/ L 0.04-0.36 (BEAKER) (test code = 416) BASOPHILS ABSOLUTE COUNT (BEAKER) 0.05 K/ L 0.01-0.08 (test code = 417) IMMATURE GRANULOCYTES-RELATIVE 0 % 0-1 PERCENT (BEAKER) (test code = 2801) POCT-GLUCOSE [id number] 06:13:00 Test Item Value Reference Range Interpretation Comments POC-GLUCOSE METER 123 mg/dL 70-110 H : TESTED A T [facility] 6720 (BEAKER) (test code [facility], = 1538) [address]: Channel Cementer/Techni charo ID = [id number] for JORD AN, LACRYSTAL PLATELET [id number] 11:27:00 Test Item Value Reference Range Interpretation Comments PLATELET COUNT (BEAKER) (test 112 K/CU MM 150-450 L code = 756) [id number] 11:07:00 Test Item Value Reference Range Interpretation Comments SODIUM (BEAKER) (test code = 381) 138 meq/L 136-145 POTASSIUM (BEAKER) (test code = 4.7 meq/L 3.5-5.1 379) CHLORIDE (BEAKER) (test code = 382) 107 meq/L 98-107 CO2 (BEAKER) (test code = 355) 26 meq/L 22-29 [id number] 11:07:00 Test Item Value Reference Range Interpretation Comments GLUCOSE RANDOM (BEAKER) (test code 134 mg/dL 70-105 H = 652) BUN AND [id number] 11:07:00 Test Item Value Reference Range Interpretation Comments BLOOD UREA NITROGEN 26 mg/dL 7-21 H (BEAKER) (test code = 354) CREATININE (BEAKER) 1.83 mg/dL 0.57-1.25 H (test code = 358) EGFR (BEAKER) (test 33 mL/min/1.73 ESTIMA RADHA GFR IS code = 1092) sq m NOT ACCURATE CREATININE CLEARANCE IN PREDICTING GLOMERULAR FILTRATION RATE . ESTIMATED GFR I S NOT APPLICABLE FOR DIALYSIS PATIEN TS. [id number] 10:54:00 Test Item Value Reference Range Interpretation Comments HEMOGLOBIN (BEAKER) (test code = 13.1 GM/DL 11.2-15.7 410) PET, CARDIAC PERFUSION MULTIPLE STUDIES, REST AND [id number] 16:17:00 Reason for Exam:->i73.9, e11.9, i25.10FINAL REPORT PROCEDURE: MYOCARDIAL PERFUSION PET IMAGING (Rest/Stress)CPT CODE: 59761 INDICATION: Known CAD CARDIOVASCULAR PROFILE:CAD History: Known CAD, CHFSymptoms: NoneRisk Factors: CAD, diabetes, hypertension, dyslipidemia, PAD, [...] 3. Decreased resting LVEF, which does not deter iorate with pharmacologic stress.4. Normal extracardiac tracer distribution.5. There is no prior study for comparison. Signed: Darrell Naidu [facility] Verified Date/Time: 11/26/2018 16:17:24 Reading Location: [address] Reading Room [facility] METABOLIC [id number] 11:28:00 Test Item Value Reference Range Interpretation Comments SODIUM (BEAKER) 142 meq/L 136-145 (test code = 381) POTASSIUM (BEAKER) 4.5 meq/L 3.5-5.1 (test code = 379) CHLORIDE (BEAKER) 107 meq/L 98-107 (test code = 382) CO2 (BEAKER) (test 25 meq/L 22-29 code = 355) BLOOD UREA NITROGEN 22 mg/dL 7-21 H (BEAKER) (test code = 354) CREATININE (BEAKER) 1.72 mg/dL 0.57-1.25 H (test code = 358) GLUCOSE RANDOM 102 mg/dL 70-105 (BEAKER) (test code = 652) CALCIUM (BEAKER) 9.7 mg/dL 8.4-10.2 (test code = 697) EGFR (BEAKER) (test 35 mL/min/1.73 ESTIMA RADHA GFR IS code = 1092) sq m NOT ACCURATE CREATININE CLEARANCE IN PREDICTING GLOMERULAR FILTRATION RATE . ESTIMATED GFR I S NOT APPLICABLE FOR DIALYSIS PATIEN TS. CBC W/PLT COUNT & AUTO [id number] 11:19:00 Test Item Value Reference Range Interpretation Comments WHITE BLOOD CELL COUNT (BEAKER) 4.5 K/ L 3.5-10.5 (test code = 775) RED BLOOD CELL COUNT (BEAKER) 4.78 M/ L 3.93-5.22 (test code = 761) HEMOGLOBIN (BEAKER) (test code = 14.1 GM/DL 11.2-15.7 410) HEMATOCRIT (BEAKER) (test code = 47.0 % 34.1-44.9 H 411) MEAN CORPUSCULAR VOLUME (BEAKER) 98.3 fL 79.4-94.8 H (test code = 753) MEAN CORPUSCULAR HEMOGLOBIN 29.5 pg 25.6-32.2 (BEAKER) (test code = 751) MEAN CORPUSCULAR HEMOGLOBIN CONC 30.0 GM/DL 32.2-35.5 L (BEAKER) (test code = 752) RED CELL DISTRIBUTION WIDTH 13.9 % 11.7-14.4 (BEAKER) (test code = 412) PLATELET COUNT (BEAKER) (test 124 K/CU MM 150-450 L code = 756) MEAN PLATELET VOLUME (BEAKER) 12.0 fL 9.4-12.3 (test code = 754) NUCLEATED RED BLOOD CELLS 0 /100 WBC 0-0 (BEAKER) (test code = 413) NEUTROPHILS RELATIVE PERCENT 64 % (BEAKER) (test code = 429) LYMPHOCYTES RELATIVE PERCENT 22 % (BEAKER) (test code = 430) MONOCYTES RELATIVE PERCENT 11 % (BEAKER) (test code = 431) EOSINOPHILS RELATIVE PERCENT 2 % (BEAKER) (test code = 432) BASOPHILS RELATIVE PERCENT 1 % (BEAKER) (test code = 437) NEUTROPHILS ABSOLUTE COUNT 2.89 K/ L 1.56-6.13 (BEAKER) (test code = 670) LYMPHOCYTES ABSOLUTE COUNT 0.97 K/ L 1.18-3.74 L (BEAKER) (test code = 414) MONOCYTES ABSOLUTE COUNT (BEAKER) 0.48 K/ L 0.24-0.36 H (test code = 415) EOSINOPHILS ABSOLUTE COUNT 0.10 K/ L 0.04-0.36 (BEAKER) (test code = 416) BASOPHILS ABSOLUTE COUNT (BEAKER) 0.06 K/ L 0.01-0.08 (test code = 417) IMMATURE GRANULOCYTES-RELATIVE 0 % 0-1 PERCENT (BEAKER) (test code = 2801) BASIC METABOLIC [id number] 14:13:00 Test Item Value Reference Range Interpretation Comments SODIUM (BEAKER) 141 meq/L 136-145 (test code = 381) POTASSIUM (BEAKER) 4.5 meq/L 3.5-5.1 (test code = 379) CHLORIDE (BEAKER) 109 meq/L 98-107 H (test code = 382) CO2 (BEAKER) (test 22 meq/L 22-29 code = 355) BLOOD UREA NITROGEN 26 mg/dL 7-21 H (BEAKER) (test code = 354) CREATININE (BEAKER) 1.74 mg/dL 0.57-1.25 H (test code = 358) GLUCOSE RANDOM 98 mg/dL 70-105 (BEAKER) (test code = 652) CALCIUM (BEAKER) 9.8 mg/dL 8.4-10.2 (test code = 697) EGFR (BEAKER) (test 35 mL/min/1.73 ESTIMA RADHA GFR IS code = 1092) sq m NOT ACCURATE CREATININE CLEARANCE IN PREDICTING GLOMERULAR FILTRATION RATE . ESTIMATED GFR I S NOT APPLICABLE FOR DIALYSIS PATIEN TS. CBC W/PLT COUNT & AUTO [id number] 13:54:00 Test Item Value Reference Range Interpretation Comments WHITE BLOOD CELL COUNT (BEAKER) 5.4 K/ L 3.5-10.5 (test code = 775) RED BLOOD CELL COUNT (BEAKER) 4.55 M/ L 3.93-5.22 (test code = 761) HEMOGLOBIN (BEAKER) (test code = 14.0 GM/DL 11.2-15.7 410) HEMATOCRIT (BEAKER) (test code = 45.3 % 34.1-44.9 H 411) MEAN CORPUSCULAR VOLUME (BEAKER) 99.6 fL 79.4-94.8 H (test code = 753) MEAN CORPUSCULAR HEMOGLOBIN 30.8 pg 25.6-32.2 (BEAKER) (test code = 751) MEAN CORPUSCULAR HEMOGLOBIN CONC 30.9 GM/DL 32.2-35.5 L (BEAKER) (test code = 752) RED CELL DISTRIBUTION WIDTH 13.8 % 11.7-14.4 (BEAKER) (test code = 412) PLATELET COUNT (BEAKER) (test 133 K/CU MM 150-450 L code = 756) MEAN PLATELET VOLUME (BEAKER) 11.4 fL 9.4-12.3 (test code = 754) NUCLEATED RED BLOOD CELLS 0 /100 WBC 0-0 (BEAKER) (test code = 413) NEUTROPHILS RELATIVE PERCENT 63 % (BEAKER) (test code = 429) LYMPHOCYTES RELATIVE PERCENT 24 % (BEAKER) (test code = 430) MONOCYTES RELATIVE PERCENT 9 % (BEAKER) (test code = 431) EOSINOPHILS RELATIVE PERCENT 2 % (BEAKER) (test code = 432) BASOPHILS RELATIVE PERCENT 1 % (BEAKER) (test code = 437) NEUTROPHILS ABSOLUTE COUNT 3.39 K/ L 1.56-6.13 (BEAKER) (test code = 670) LYMPHOCYTES ABSOLUTE COUNT 1.30 K/ L 1.18-3.74 (BEAKER) (test code = 414) MONOCYTES ABSOLUTE COUNT (BEAKER) 0.50 K/ L 0.24-0.36 H (test code = 415) EOSINOPHILS ABSOLUTE COUNT 0.12 K/ L 0.04-0.36 (BEAKER) (test code = 416) BASOPHILS ABSOLUTE COUNT (BEAKER) 0.06 K/ L 0.01-0.08 (test code = 417) IMMATURE GRANULOCYTES-RELATIVE 1 % 0-1 PERCENT (BEAKER) (test code = 0865)
--- OUTSIDE RECORDS SUMMARY | 2019-07-15 14:00 | XMS REPORT | Summary of Care ---
:1945 Author Organization [facility] [place] [address] Care Team Providers Name Role Phone MD Joyce Primary Care Provider Reason for Referral Radiology Services (Routine) Status Reason Specialty Diagnoses / Referred By Referred To Procedures Contact Contact E-Auth Not Radiology Diagnoses PAD (peripheral artery disease) (HCCode) Ian Doan MD Us Imaging Needed Procedures US ARTERIAL LEG LEFT [address] [facility] [address] [place] [address] [address] [place], [place] [address] [place] Phone: [phone] Phone: Fax: Reason for Visit Reason Comments Follow Up Encounter Details Date Type Department Care Team Description 05/27/2019 Office Visit [facility] Ian Doan MD Follow Up Vascular Surgery [address] [facility] [address] [facility] [address] 6th Floor, [address] [place] [address] [place] [address] [phone] Allergies No Known Allergiesdocumented as of this encounter (statuses as of 05/29/2019) Medications Medication Sig Dispensed Refills Start Date End Date Status amiodarone TK 1 T PO QD 3 04/01/2018 Activ e (PACERONE) 200 MG tablet carvedilol (COREG) TK [...] MG tablet Clopidogrel Take by mouth. 0 Ac tive Bisulfate (PLAVIX OR) BABY ASPIRIN OR Take by mouth 0 Active daily. acetaminophen 325 Take 650 mg by 0 01/16/20192019 Active mg tablet mouth. gabapentin Take 1 Cap by mouth 90 Cap 1 02/20/2019 Active (NEURONTIN) 300 MG 3 times daily. 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 07/02/2018 Essential hypertension 07/02/2018 Pacemaker 02/19/2012 Overview: PPM MDT [id number] Dr Gonzalez CAD (coronary artery disease) 02/18/2009 Overview: Non obstructive as per cath 2009 Cardiomyopathy, ischemic 02/18/2009 Overview: reported EF in the range 15% as of 2014 by TTE Type 2 diabetes mellitus without complication [facility] Hypertension Hyperlipidemia PAD (peripheral artery disease) [facility] Overview: LEFT sp SFA stent occluded, occluded PT and Peroneal , patent AT documented as of this encounter (statuses as of 05/29/2019) Social History Tobacco Use Types Packs/Day Years [...] Sign Reading Time Taken Comments Blood Pressure 167/90 05/27/2019 11:05 AM CDT Pulse 60 05/27/2019 11:05 AM CDT Temperature - - Respiratory Rate - - Oxygen Saturation - - Inhaled Oxygen Concentration - - Weight 81.6 kg (180 lb) 05/27/2019 11:05 AM CDT Height 162.6 cm (5' 4") 05/27/2019 11:05 AM CDT Body Mass Index 30.9 05/27/2019 11:05 AM CDT documented in this encounter Patient Instructions Patient InstructionsMaria Tersea Yee N - 05/27/2019 11:25 AM CDTThank you for choosing [facility]. You may receive a survey in the mail. Please provide comments to let us know how we can improve our patient care. Instructions for your care: Patient to return in 3 months with left A26. Ian Doan MD [employer] digital [employer] Division of Vascular Surgery and Endovascular Therapy If you have any questions, please feel free to call us at: Your Body mass index is 30.9 kg/m. Body mass index (BMI) can help you see if your weight is raising your risk for health problems. It uses a formula to compare how much you weigh with how tall you are. A BMI between 18.5 and 24.9 is considered healthy. A BMI between 25 and 29.9 is considered overweight. A BMI of 30 or higher is considered obese. If your BMI is in the normal range, it means that you have a lower risk for weight-related health problems. If your BMI is in the overweight or obese range, you may be at increased risk for weight-related health problems, such as high blood pressure, heart disease, stroke, arthritis or joint pain, anddiabetes. BMI is just one measure of your risk for weight-related health problems. You may be at higher risk for health problems if you are not active, you eat an unhealthy diet, or you drink too much alcohol oruse tobacco products. Follow-up care is a jorge part of your treatment and safety. Be sure to make and go to all appointments, and call your doctor if you are having problems. It's also a good idea to know your test results and keep a list of the medicines you take. How can you care for yourself at home? Practice healthy eating habits. This includes eating plenty of fruits, vegetables, whole grains, lean protein, and low-fat dairy. Get at least 30 minutes of exercise 5 days a week or more. Brisk walking is a good choice. You also may want to do other activities, such as running, swimming, cycling, or playing tennis or team sports. Do not smoke. Smoking can increase your risk for health problems. If you need help quitting, talkto your doctor about stop-smoking programs and medicines. These can increase your chances of quitting for good. Limit alcohol Where can you learn more? Go to www.[employer].[facility]lex[facility] Therapeuticsst. mary's hospitalInt[facility] Corporation Go to the Search tab with the magnifying glass on the right side of [employer] home page. Enter S176 in the search box to learn more about "Body Mass Index: Care Instructions." documented in this encounter Progress Notes Jaylen Durbin NP - 05/27/2019 11:00 AM CDT [facility] [address] [place] [address]. [address] Office: [phone] DATE OF VISIT: May 27, 2019 PATIENT NAME: Sangita Hendrix : 1945 PCP / REFERRING PHYSICIAN: Nam Cook / Khloe YOON DR [facility] [id number] The patient presents today for a Vascular Surgery Established Patient Visit. The patient underwent left SFA - AT bypass with revered GSV, which was performed on 01/08/19 at the [facility]. The patient surgery was complicated by incisional dehiscence which has now healed according to the patient. The patient today reports of LLE pain which is neuropathic in nature. The pain is not characterized as claudicating type pain or rest pain at this time. The patient has not reported any new wounds at this time. She has been able to ambulate without difficulty. VITAL SIGNS: BP 167/90 | Pulse 60 | Ht 5' 4" (1.626 m) | Wt 180 lb (81.6 kg) | BMI 30.90 kg/m PHYSICAL EXAM: Constitutional: Well nourished, no signs of distress Cardiovascular: Normal rate, regular rhythm and normal heart sounds. No murmurs , rubs or gallops Pulmonary/Chest: Breath sounds normal. No respiratory distress. No adventitious sounds. Abdominal: Soft. No abdominal distension or tenderness. No masses palpated and no hepatomegaly. No organomegaly. No abdominal pulsatile mass noted. Musculoskeletal: Normal range of motion. No evidence of arthritis. Extremities: No edema, cyanosis or clubbing. Neurological: She is alert and oriented. No muscle weakness and normal gait. VASCULAR: Palpable femoral pulses were present bilaterally with Dopplerable popliteal, dorsalis pedis and posterior tibial artery signals. Groin punctured site is healing well without signs of infection. Vascular Ultrasound Study performed on May 28, 2019: Assessment & Plan: Peripheral arterial disease with status post lower leg angiogram with angioplasty - Clinical improvement of wound healing is noted. Recommend daily exercise regimen with 30 minutes of aerobic activity(i.e., walking or bicycling) to improve lower leg arterial circulation. Return to vascular clinic in3 month(s) with follow-up arterial duplex ultrasound of left lower extremity. TAMMY White Department of Surgery Division of Vascular Surgery Ian Ramirez MD - 05/27/2019 11:00 AM Ousmane Hendrix complains of pain to the LLE. (+) neuropathic. No rest pain. The wounds have all healed. Duplex= psv of 191 and the prox anastomosis. Otherwise, patent, with biphasic waveforms throughout. ABIs are incompressible. Rec: F/u in 3 months with repeat ABIs and duplex, and f/u with pcp reneuropathic pain. documented in this encounter Plan of Treatment Date Type Specialty Care Team Description 08/26/2019 Ancillary Procedure Vascular Surgery 08/26/2019 Office Visit Vascular Surgery Ian Doan M D [address] [facility] [address] [place], [place] [address] [phone] Name Type Priority Associated Diagnoses Order S chedule US ARTERIAL LEG LEFT Imaging Routine PAD (peripheral jhonny ry 1 Occurrences starting disease) (HCCode) 05/27/2019 until 12/27/2019 Health Maintenance Due Date Last Done Comments COLON CANCER SCREENING: COLONOSCOPY 1945 MAMMOGRAM ANNUAL 1945 TETANUS SHOT (ADULT) 1961 ANNUAL DIABETIC FOOT EXAM 1964 ANNUAL DIABETIC RETINOPATHY SCREENING 1964 HEPATITIS C SCREENING 1964 FALL SCREEN 09/12/2011 OSTEOPOROSIS SCREENING 09/12/2011 PNEUMOVAX >=65 (PPSV23) 09/12/2011 PREVNAR >= 65 (PCV13) 09/12/2011 MEDICARE AWV (Initial) 02/18/2018 FLU VACCINE > 6 MONTHS 09/19/2019 BMI FOLLOW UP PLAN 05/26/2020 05/27/2019 documented as of this encounter Results Not on filedocumented in this encounter Visit Diagnoses Diagnosis PAD (peripheral artery disease) (HCCode) - Primary Unspecified disorders of arteries and ar terioles Increased BMI (body mass index) documented in this encounter Insurance Payer Benefit Plan / Subscriber ID Effective Phone Address T ype Group Dates [employer] ERS MEDICARE xxxxxxxxx 2018-Prese [address] Medicare [place] [address] documented as of this encounter
--- NOTE | 2019-07-15 14:42 | RAD REPORT ---
EXAM DESCRIPTION: RAD - Lumbar Spine 3 Views - 07/15/2019 2:29 pm CLINICAL HISTORY: PAIN COMPARISON: SPINE LUMBAR W OBLIQUE dated 09/04/2010 FINDINGS: A three-view lumbar spine examination was performed. Lumbar bodies are normal in height. Minimal anterior subluxation of L4 on L5 secondary to prominent f acet joint degenerative change. This has progressed slightly since 2010. The L4-5 disc space is narro wed also progressive since 2010. Mild left convex curvature is present with endplate spurring minimally progressive from 2010. No acut e compression fracture. No pathologic bone process. Prominent facet joint degenerative changes are pr esent throughout the lumbar spine progressive from 2010. Significant facet degenerative change was pr esent at that time. No other disc space narrowing. No pars defects identified. IMPRESSION: No compression fracture or acute lumbar spine finding. Degenerative changes are present in the lumbar spine as detailed. Changes are mildly progressive over the long interval since 2010.
--- NOTE | 2019-07-15 14:44 | RAD REPORT ---
EXAM DESCRIPTION: RAD - Sacrum And Coccyx - 07/15/2019 2:29 pm CLINICAL HISTORY: PAIN, fall with pain to the tail bone COMPARISON: Lumbar Spine 3 Views dated 07/15/2019; SPINE LUMBAR W OBLIQUE dated 09/04/2010 TECHNIQUE: Lateral, 15 degree cephalad and 10 degree caudal images obtained FINDINGS: No fracture of the sacrum or coccygeal segments identifiable. No abnormal displacement. No pathologic bone process. No presacral soft tissue thickening. Lumbar degenerative changes are separately detailed. Moderate SI joint degenerative changes are prese nt. This is symmetric in severity. IMPRESSION: No fracture of the sacrum or coccyx identified.
[2019-07-15] MEDS ORDERED: DIAZEPAM 5 MG TABLET ONE (16:15)
[2019-07-15 16:27] VITALS: BP 159/74; TEMP 98.3; O2SAT 99
--- NOTE | 2019-07-20 14:27 | EDPHYS ---
Physician Documentation [facility] Name: Sangita Hendrix Age: 73 yrs Sex: Female : 1945 Arrival Date: 07/15/2019 Time: 11:52 Bed 12 Private MD: Nam Alexander R ED Physician Getachew Chung HPI: 07/14 15:50 This 73 yrs old Black Female presents to ER via Ambulatory with complaints of Fall snw Injury. 15:50 Details of fall: The patient fell from an upright position, while standing. Onset: The snw symptoms/episode began/occurred suddenly, 3 day(s) ago, and became persistent. Associated injuries: The patient sustained contusion, lumbar sacral area. Severity of symptoms: At their worst the symptoms were mild, moderate. It is unknown whether or not the patient has had similar symptoms in the past. It is unknown whether or not the patient has recently seen a physician. no LOC, did not strike head. Historical: - Allergies: 13:04 PENICILLINS; dm5 - Immunization history:: Adult Immunizations up to date. - Social history:: Smoking status: Patient denies any tobacco usage or history of. ROS: 15:50 Constitutional: Negative for fever, chills, and weight loss, Eyes: Negative for injury, snw pain, redness, and discharge, ENT: Negative for injury, pain, and discharge, Neck: Negative for injury, pain, and swelling, Cardiovascular: Negative for chest pain, palpitations, and edema, Respiratory: Negative for shortness of breath, cough, wheezing, and pleuritic chest pain, Abdomen/GI: Negative for abdominal pain, nausea, vomiting, diarrhea, and constipation, Back: positive for injury and pain second to same level fall 3 days ago : Negative for injury, bleeding, discharge, and swelling, MS/Extremity: Negative for injury and deformity, Skin: Negative for injury, rash, and discoloration, Neuro: Negative for headache, weakness, numbness, tingling, and seizure, Psych: Negative for depression, anxiety, suicide ideation, homicidal ideation, and hallucinations. Exam: 15:46 Constitutional: This is a well developed, well nourished patient who is awake, alert, snw and in no acute distress. Head/Face: Normocephalic, atraumatic. Eyes: Pupils equal round and reactive to light, extra-ocular motions intact. Lids and lashes normal. Conjunctiva and sclera are non-icteric and not injected. Cornea within normal limits. Periorbital areas with no swelling, redness, or edema. ENT: Nares patent. No nasal discharge, no septal abnormalities noted. Tympanic membranes are normal and external auditory canals are clear. Oropharynx with no redness, swelling, or masses, exudates, or evidence of obstruction, uvula midline. Mucous membranes moist. Neck: Trachea midline, no thyromegaly or masses palpated, and no cervical lymphadenopathy. Supple, full range of motion without nuchal rigidity, or vertebral point tenderness. No Meningismus. Chest/axilla: Normal chest wall appearance and motion. Nontender with no deformity. No lesions are appreciated. Cardiovascular: Regular rate and rhythm with a normal S1 and S2. No gallops, murmurs, or rubs. Normal PMI, no JVD. No pulse deficits. Respiratory: Lungs have equal breath sounds bilaterally, clear to auscultation and percussion. No rales, rhonchi or wheezes noted. No increased work of breathing, no retractions or nasal flaring. Abdomen/GI: Soft, non-tender, with normal bowel sounds. No distension or tympany. No guarding or rebound. No evidence of tenderness throughout. Back: No spinal tenderness. No costovertebral tenderness. Full range of motion. Skin: Warm, dry with normal turgor. Normal color with no rashes, no lesions, and no evidence of cellulitis. Neuro: Awake and alert, GCS 15, oriented to person, place, time, and situation. Cranial nerves II-XII grossly intact. Motor strength 5/5 in all extremities. Sensory grossly intact. Cerebellar exam normal. Normal gait. Psych: Awake, alert, with orientation to person, place and time. Behavior, mood, and affect are within normal limits. 15:46 Musculoskeletal/extremity: ROM: intact in all extremities, Circulation is intact in all extremities. Sensation intact. tailbone area tender, scar from remote surgery noted. Vital Signs: 13:02 BP 159 / 74; Pulse 60; Resp 18; Temp 98.3; Pulse Ox 99% on R/A; Weight 94.8 kg (R); dm5 Height 5 ft. 4 in. (162.56 cm); Pain 10; 13:02 Body Mass Index 35.87 (94.80 kg, 162.56 cm) dm5 MDM: 15:29 Patient medically screened. snw 15:49 Data reviewed: vital signs, nurses notes. Data interpreted: Pulse oximetry: on room air snw is 99 %. Interpretation: normal. Counseling: I had a detailed discussion with the patient and/or guardian regarding: the historical points, exam findings, and any diagnostic results supporting the discharge/admit diagnosis, radiology results, the need for outpatient follow up, to return to the emergency department if symptoms worsen or persist or if there are any questions or concerns that arise at home. Special discussion: I have referred the patient to see his PCP for further evaluation of high blood pressure. Based on the patient's history, exam and DX evaluation, there is no indication for emergent intervention or inpatient [place]. It is understood by the patient/guardian that if the SXs persist or worsen they need to return immediately for re-evaluation. Based on the history and exam findings, there is no indication for further emergent testing or inpatient evaluation. I discussed with the patient/guardian the need to see the orthopedic surgeon for further evaluation of the symptoms. I discussed with the patient/guardian the need to see the primary care provider for further evaluation of the symptoms. 07/14 13:07 Order name: Lumbar Spine (3 Views) XRAY dm5 07/14 13:08 Order name: Sacrum And Coccyx XRAY dm5 Administered Medications: 13:07 Drug: Collins 5 mg-325 mg 1 tabs {Note: RASS 0.} Route: PO; dm5 16:18 Drug: Valium 5 mg Route: PO; hb 16:18 Follow up: Response: Medication administered at discharge. hb Disposition: 16:33 Co-signature as Attending Physician, Getacehw Chung MD I agree with the assessment and kdr plan of care. Disposition: 07/15/19 15:49 Discharged to Home. Impression: Fall on same level, unspecified, Other intervertebral disc degeneration, lumbar region - sacral. - Condition is Stable. - Discharge Instructions: Fall Prevention in the Home, Degenerative Disk Disease. - Prescriptions for orphenadrine citrate 100 mg Oral Tablet Sustained Release - take 1 tablet by ORAL route 2 times per day As needed; 20 tablet. - Medication Reconciliation Form, Thank You Letter, Antibiotic Education, Prescription Opioid Use form. - Follow up: Nam Alexander MD; When: 2 - 3 days; Reason: Recheck today's complaints, Continuance of care, Re-evaluation by your physician. Signatures: Dispatcher [employer] Janny Abdul, RN RN dm5 Getachew Chung MD MD [facility] Erika Roy, WATER OPERATOR-C WATER OPERATOR-Csnw Harini Beauchamp, ANAMARIA RN hb Corrections: (The following items were deleted from the chart) 16:19 15:49 07/15/2019 15:49 Discharged to Home. Impression: Fall on same level, unspecified; hb Other intervertebral disc degeneration, lumbar region - sacral. Condition is Stable. Forms are Medication Reconciliation Form, Thank You Letter, Antibiotic Education, Prescription Opioid Use. Follow up: Nam Alexander; When: 2 - 3 days; Reason: Recheck today's complaints, Continuance of care, Re-evaluation by your physician. snw
--- NOTE | 2019-07-20 14:27 | ER ---
Nurse's Notes [facility] Name[facility] Sangita [facility]ned[facility] Age: 73 yrs Sex: Female : 1945 Arrival Date: 07/15/2019 Time: 11:52 Bed 12 Private MD: Nam Alexander R Diagnosis: Fall on same level, unspecified;Other intervertebral disc degeneration, lumbar region-sacral Presentation: 07/14 11:55 Chief complaint: Patient states: pt fell from standing, reports hitting buttocks, dm5 tailbone 2-3 days ago, reports being on blood thinners, denies hitting head. 11:55 Acuity: MADISYN 4 dm5 13:01 Care prior to arrival: None. dm5 13:01 Method Of Arrival: Ambulatory dm5 13:02 Coronavirus screen: Proceed with normal triage. Patient denies a cough. Patient denies dm5 shortness of breath or difficulty breathing. Patient denies measured and/or subjective temperature greater than 100.4F prior to today's visit. Patient denies travel on a cruise ship or to a country the [facility] currently lists as an affected area. Patient denies contact with known and/or suspected case of COVID-19. Ebola Screen: Patient negative for fever greater than or equal to 101.5 degrees Fahrenheit, and additional compatible Ebola Virus Disease symptoms Patient denies exposure to infectious person. Patient denies travel to an Ebola-affected area in the 21 days before illness onset. No symptoms or risks identified at this time. Initial Sepsis Screen: Does the patient meet any 2 criteria? No. Patient's initial sepsis screen is negative. Does the patient have a suspected source of infection? No. Patient's initial sepsis screen is negative. Risk Assessment: Do you want to hurt yourself or someone else? Patient reports no desire to harm self or others. Onset of symptoms was July 12, 2019. Historical: - Allergies: 13:04 PENICILLINS; dm5 - Immunization history:: Adult Immunizations up to date. - Social history:: Smoking status: Patient denies any tobacco usage or history of. Screenin:15 Abuse screen: Denies threats or abuse. Denies injuries from another. Nutritional hb screening: No deficits noted. Tuberculosis screening: No symptoms or risk factors identified. Fall Risk None identified. Assessment: 15:25 General: Appears in no apparent distress. Behavior is calm, cooperative. Pain: Pain hb currently is 8 out of 10 on a pain scale. Neuro: Level of Consciousness is awake, alert, obeys commands. Cardiovascular: Patient's skin is warm and dry. Respiratory: Respiratory effort is even, unlabored, Respiratory pattern is regular, symmetrical. GI: No signs and/or symptoms were reported involving the gastrointestinal system. : No signs and/or symptoms were reported regarding the genitourinary system. EENT: No signs and/or symptoms were reported regarding the EENT system. Derm: Skin is pink, warm \T\ dry. Musculoskeletal: Reports low back pain. Vital Signs: 13:02 BP 159 / 74; Pulse 60; Resp 18; Temp 98.3; Pulse Ox 99% on R/A; Weight 94.8 kg (R); dm5 Height 5 ft. 4 in. (162.56 cm); Pain 10/10; 13:02 Body Mass Index 35.87 (94.80 kg, 162.56 cm) dm5 ED Course: 11:52 Patient arrived in ED. mr 11:52 Nam Alexander MD is Private Physician. mr 11:55 Triage completed. dm5 15:15 Arm band placed on. hb 15:20 Patient has correct armband on for positive identification. hb 15:29 Erika Roy [facility]-C [facility]. snw 15:29 Getachew Chung MD is Attending Physician. snw 15:47 Nam Alexander MD is Referral Physician. snw 15:51 Harini Beauchamp, RN is Primary Nurse. hb 16:00 No provider procedures requiring assistance completed. Patient did not have IV access hb during this emergency room visit. Administered Medications: 13:07 Drug: [place]art 5 mg-325 mg 1 tabs {Note: RASS 0.} Route: PO; dm5 16:18 Drug: Valium 5 mg Route: PO; hb 16:18 Follow up: Response: Medication administered at discharge. hb Outcome: 15:49 Discharge ordered by . snw 16:19 Discharged to home ambulatory. hb 16:19 Condition: stable 16:19 Discharge instructions given to patient, Instructed on discharge instructions, follow up and referral plans. medication usage, Demonstrated understanding of instructions, follow-up care, medications, Prescriptions given X 1. 16:19 Patient left the ED. hb Signatures: Janny Saha RN RN dm5 Erika Roy, LADIES LOCKER ROOM ATTENDANT-C LADIES LOCKER ROOM ATTENDANT-Csnw Henry Erlinda mr Harini Beauchamp RN RN hb Corrections: (The following items were deleted from the chart) 13:02 11:55 Chief complaint: Patient states: pt fell, reports hitting buttocks, tailbone, dm5 reports being on blood thinners, denies hitting head dm5
== END 2019-07-15 16:19 | disposition home or self-care (01) ==
LOC: ER 11:45
DX: M51.37 Other intervertebral disc degeneration, lumbosacral region (principal); W18.30XA Fall on same level, unspecified, initial encounter; Y93.9 Activity, unspecified; Y92.9 Unspecified place or not applicable
CPT/HCPCS: 72100; 72220; 99283

== ENCOUNTER 2019-08-01 17:26 | Emergency (ER) | payer OTHER ==
--- OUTSIDE RECORDS SUMMARY | 2019-08-01 17:30 | XMS REPORT | Clinical Summary ---
:[address] 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, bilateral legs Peripheral artery disease 11/03/2018 PAD (peripheral artery disease) 06/17/2018 Encounters Date Type Specialty Care Team Description 01/10/2019 Travel 01/08/2019 Surgery Ian Doan BYPASS,FEMORAL -PERONEAL 01/08/2019 Anesthesia Event Rita Hair 01/08/2019 - Hospital Encounter Cardiology Ian Doan PAD (per ipheral artery disease) ([facility]); 01/16/2019 Acute post-oper ative pain; Acute blood los s anemia; Ischemic cardio myopathy; Type 2 diabetes mellitus with diabetic peripheral angiopathy without gangrene, with long-term current use of insulin ([facility]); Hyperglycemia 12/29/2018 Hospital Encounter Pre-Admission Ian Doan Testing MD 11/26/2018 Hospital Encounter Radiology Michael Mancia PAD (paul pheral artery disease) ([facility]); MD Pritesh Type 2 diabete s mellitus without complication, unspecified whether fci insulin use ([facility]); Atherosclerosis of [place] coronary artery of [place] heart, angina presence unspecified 11/22/2018 Outside Orders Central Scheduling Michael Mancia PAD (pe ripheral artery disease) ([facility]) (Primary Dx); MD Pritesh Type 2 diabete s mellitus without complication, unspecified whether remote computer terminal operator insulin use ([facility]); Atherosclerosis of [place] coronary artery of [place] heart, angina presence unspecified 11/03/2018 Surgery Ian Doan, PERIPHERAL ANG IOS / AORTOGRAM 11/03/2018 Hospital Encounter Ian Doan MD 10/29/2018 Hospital Encounter Ian Doan PAD (per ipheral artery MD disease) ([facility]) 10/29/2018 Orders Only General Internal Medicine after 07/31/2018 Social History Tobacco Use Types Packs/Day Years [...] Taken Blood Pressure 123/75 01/16/2019 3:00 PM BOILER TENDER Pulse 61 01/16/2019 3:00 PM BOILER TENDER Temperature 36.1 C (97 F) 01/16/2019 3:00 PM BOILER TENDER Respiratory Rate 17 01/16/2019 3:00 PM BOILER TENDER Oxygen Saturation 100% 01/16/2019 3:00 PM BOILER TENDER Inhaled Oxygen Concentration - - Weight 97.8 kg (215 lb 8 oz) 01/16/2019 9:00 A M BOILER TENDER Height 162.6 cm (5' 4") 01/08/2019 5:35 AM BOILER TENDER Body Mass Index 36.99 01/16/2019 9:00 AM BOILER TENDER Plan of Treatment Not on file Implants Implanted Type Area Clock Maker Device Shelf Model / Identifier Expiration Serial / Date Lot [employer] V[employer] N/A: [employer]ASC 09/11/19 21 [id number] / Implanted: Qty: 1 on 06/17/2018 by Ian Doan MD Arterial SURG / [id number] [employer] N/A: [employer] 04/02/19 20 [id number] / Implanted: Qty: 1 on 06/17/2018 by Ian Doan MD Arterial SURG / [id number] Angio Seal Right: TERUMO 02/17/2019 [id number] / Implanted: Qty: 1 on 06/17/2018 by Ian Doan MD Arterial CARDIOVASCULAR / SYSTEMS [id number] Cellerate Activated Collagen Left: Leg WOUND CARE 08/17/2021 [id number] / Implanted: Qty: 1 on 01/08/2019 by Ian Doan MD Ocsc [id number] / Procedures Procedure Name Priority Date/Time Associated Comments Diagnosis RHYTHM STRIP - SCAN 01/20/2019 12:50 PM BOILER TENDER RHYTHM STRIP - SCAN 01/20/2019 12:50 PM BOILER TENDER RHYTHM STRIP - SCAN 01/20/2019 12:42 PM BOILER TENDER POCT-GLUCOSE METER Routine 01/16/2019 11:28 Resul ts for this AM BOILER TENDER procedure are i n the results section. POCT-GLUCOSE METER Routine 01/16/2019 8:16 Resul ts for this AM BOILER TENDER procedure are i n the results section. (CELLAVISION MANUAL Routine 01/16/2019 4:23 Resu lts for this DIFF) AM BOILER TENDER procedure are i n the results section. CBC W/PLT COUNT & Routine 01/16/2019 4:23 Result s for this AUTO DIFFERENTIAL AM BOILER TENDER procedure are in the results section. CBC W/PLT COUNT & Routine 01/16/2019 4:23 Result s for this AUTO DIFFERENTIAL AM BOILER TENDER procedure are in the results section. BASIC METABOLIC PANEL Routine 01/16/2019 4:23 Re sults for this (7) AM BOILER TENDER procedure are i n the results section. POCT-GLUCOSE METER Routine 01/15/2019 8:16 Resul ts for this PM BOILER TENDER procedure are i n the results section. POCT-GLUCOSE METER Routine 01/15/2019 5:00 Resul ts for this PM BOILER TENDER procedure are i n the results section. POCT-GLUCOSE METER Routine 01/15/2019 12:49 Resul ts for this PM BOILER TENDER procedure are i n the results section. POCT-GLUCOSE METER Routine 01/15/2019 8:33 Resul ts for this AM BOILER TENDER procedure are i n the results section. POCT-GLUCOSE METER Routine 01/14/2019 8:56 Resul ts for this PM BOILER TENDER procedure are i n the results section. POCT-GLUCOSE METER Routine 01/14/2019 4:35 Resul ts for this PM BOILER TENDER procedure are i n the results section. POCT-GLUCOSE METER Routine 01/14/2019 12:35 Resul ts for this PM BOILER TENDER procedure are i n the results section. POCT-GLUCOSE METER Routine 01/14/2019 7:41 Resul ts for this AM BOILER TENDER procedure are i n the results section. POCT-GLUCOSE METER Routine 01/13/2019 9:22 Resul ts for this PM BOILER TENDER procedure are i n the results section. POCT-GLUCOSE METER Routine 01/13/2019 4:59 Resul ts for this PM BOILER TENDER procedure are i n the results section. POCT-GLUCOSE METER Routine 01/13/2019 12:32 Resul ts for this PM BOILER TENDER procedure are i n the results section. POCT-GLUCOSE METER Routine 01/13/2019 7:44 Resul ts for this AM BOILER TENDER procedure are i n the results section. CBC W/PLT COUNT & Routine 01/13/2019 5:47 Result s for this AUTO DIFFERENTIAL AM BOILER TENDER procedure are in the results section. CBC W/PLT COUNT & Routine 01/13/2019 5:47 Result s for this AUTO DIFFERENTIAL AM BOILER TENDER procedure are in the results section. BASIC METABOLIC PANEL Routine 01/13/2019 5:47 Re sults for this (7) AM BOILER TENDER procedure are i n the results section. POCT-GLUCOSE METER Routine 01/12/2019 9:24 Resul ts for this PM BOILER TENDER procedure are i n the results section. POCT-GLUCOSE METER Routine 01/12/2019 7:08 Resul ts for this PM BOILER TENDER procedure are i n the results section. POCT-GLUCOSE METER Routine 01/12/2019 5:14 Resul ts for this PM BOILER TENDER procedure are i n the results section. POCT-GLUCOSE METER Routine 01/12/2019 9:19 Resul ts for this AM BOILER TENDER procedure are i n the results section. CBC W/PLT COUNT & Routine 01/12/2019 4:14 Result s for this AUTO DIFFERENTIAL AM BOILER TENDER procedure are in the results section. CBC W/PLT COUNT & Routine 01/12/2019 4:14 Result s for this AUTO DIFFERENTIAL AM BOILER TENDER procedure are in the results section. BASIC METABOLIC PANEL Routine 01/12/2019 4:14 Re sults for this (7) AM BOILER TENDER procedure are i n the results section. POCT-GLUCOSE METER Routine 01/11/2019 8:47 Resul ts for this PM BOILER TENDER procedure are i n the results section. POCT-GLUCOSE METER Routine 01/11/2019 4:56 Resul ts for this PM BOILER TENDER procedure are i n the results section. POCT-GLUCOSE METER Routine 01/11/2019 11:56 Resul ts for this AM BOILER TENDER procedure are i n the results section. POCT-GLUCOSE METER Routine 01/11/2019 9:10 Resul ts for this AM BOILER TENDER procedure are i n the results section. US RENAL COMPLETE Routine 01/11/2019 8:59 Result s for this AM BOILER TENDER procedure are i n the results section. CBC W/PLT COUNT & Routine 01/11/2019 4:15 Result s for this AUTO DIFFERENTIAL AM BOILER TENDER procedure are in the results section. PHOSPHORUS Routine 01/11/2019 4:15 Results for this AM BOILER TENDER procedure are i n the results section. MAGNESIUM Routine 01/11/2019 4:15 Results for this AM BOILER TENDER procedure are i n the results section. CBC W/PLT COUNT & Routine 01/11/2019 4:15 Result s for this AUTO DIFFERENTIAL AM BOILER TENDER procedure are in the results section. BASIC METABOLIC PANEL Routine 01/11/2019 4:15 Re sults for this (7) AM BOILER TENDER procedure are i n the results section. POCT-GLUCOSE METER Routine 01/10/2019 10:14 Resul ts for this PM BOILER TENDER procedure are i n the results section. POCT-GLUCOSE METER Routine 01/10/2019 4:52 Resul ts for this PM BOILER TENDER procedure are i n the results section. CBC W/PLT COUNT & Routine 01/10/2019 2:55 Result s for this AUTO DIFFERENTIAL PM BOILER TENDER procedure are in the results section. PTH, INTACT Routine 01/10/2019 2:55 Results for this PM BOILER TENDER procedure are i n the results section. CBC W/PLT COUNT & Routine 01/10/2019 2:55 Result s for this AUTO DIFFERENTIAL PM BOILER TENDER procedure are in the results section. POCT-GLUCOSE METER Routine 01/10/2019 11:41 Resul ts for this AM BOILER TENDER procedure are i n the results section. POCT-GLUCOSE METER Routine 01/10/2019 9:30 Resul ts for this AM BOILER TENDER procedure are i n the results section. URIC ACID Add-On 01/10/2019 5:04 Results for this AM BOILER TENDER procedure are i n the results section. PHOSPHORUS Routine 01/10/2019 5:04 Results for this AM BOILER TENDER procedure are i n the results section. MAGNESIUM Routine 01/10/2019 5:04 Results for this AM BOILER TENDER procedure are i n the results section. BASIC METABOLIC PANEL Routine 01/10/2019 5:04 Re sults for this (7) AM BOILER TENDER procedure are i n the results section. POCT-GLUCOSE METER Routine 01/09/2019 9:22 Resul ts for this PM BOILER TENDER procedure are i n the results section. POCT-GLUCOSE METER Routine 01/09/2019 5:05 Resul ts for this PM BOILER TENDER procedure are i n the results section. POCT-GLUCOSE METER Routine 01/09/2019 12:06 Resul ts for this PM BOILER TENDER procedure are i n the results section. POCT-GLUCOSE METER Routine 01/09/2019 7:40 Resul ts for this AM BOILER TENDER procedure are i n the results section. PHOSPHORUS Routine 01/09/2019 3:45 Results for this AM BOILER TENDER procedure are i n the results section. MAGNESIUM Routine 01/09/2019 3:45 Results for this AM BOILER TENDER procedure are i n the results section. BASIC METABOLIC PANEL Routine 01/09/2019 3:45 Re sults for this (7) AM BOILER TENDER procedure are i n the results section. CBC W/PLT COUNT & Routine 01/09/2019 3:11 Result s for this AUTO DIFFERENTIAL AM BOILER TENDER procedure are in the results section. CBC W/PLT COUNT & Routine 01/09/2019 3:11 Result s for this AUTO DIFFERENTIAL AM BOILER TENDER procedure are in the results section. TRANSFUSION SERVICE 01/08/2019 5:54 REPORT - SCAN PM BOILER TENDER POCT-GLUCOSE METER Routine 01/08/2019 4:43 Resul ts for this PM BOILER TENDER procedure are i n the results section. CBC W/PLT COUNT & Routine 01/08/2019 4:36 Result s for this AUTO DIFFERENTIAL PM BOILER TENDER procedure are in the results section. CBC W/PLT COUNT & Routine 01/08/2019 4:36 Result s for this AUTO DIFFERENTIAL PM BOILER TENDER procedure are in the results section. PHOSPHORUS Routine 01/08/2019 4:36 Results for this PM BOILER TENDER procedure are i n the results section. MAGNESIUM Routine 01/08/2019 4:36 Results for this PM BOILER TENDER procedure are i n the results section. PT/APTT Routine 01/08/2019 4:36 Results for this PM BOILER TENDER procedure are i n the results section. BASIC METABOLIC PANEL Routine 01/08/2019 4:36 Re sults for this (7) PM BOILER TENDER procedure are i n the results section. POCT-ACT Routine 01/08/2019 1:08 Results for this PM BOILER TENDER procedure are i n the results section. POCT-ACT Routine 01/08/2019 12:08 Results for this PM BOILER TENDER procedure are i n the results section. HARVEST,VEIN 01/08/2019 7:30 PAD (peripheral AM BOILER TENDER artery disease) (HCC) Case Notes 4 HRS PER E-MAIL Special Needs (ICU BED NEEDED) BYPASS,FEMORAL-PERONEAL 01/08/2019 7:30 AM BOILER TENDER PAD (peripheral artery disease) (HCC) Case Notes 4 HRS PER E-MAIL Special Needs (ICU BED NEEDED) CBC W/PLT COUNT & Routine 01/08/2019 6:39 AM Res ults for this AUTO DIFFERENTIAL BOILER TENDER procedure are in the results section. CBC W/PLT COUNT & Routine 01/08/2019 6:39 AM Res ults for this AUTO DIFFERENTIAL BOILER TENDER procedure are in the results section. POCT-GLUCOSE METER Routine 01/08/2019 6:01 AM Re sults for this BOILER TENDER procedure are i n the results section. PREPARE RBC Routine 01/07/2019 7:14 PM Results for this BOILER TENDER procedure are i n the results section. TRANSFUSION SERVICE 12/30/2018 5:55 PM REPORT - SCAN BOILER TENDER TYPE AND SCREEN, Routine 12/29/2018 10:40 AM Resu lts for this AUTOMATED BOILER TENDER procedure are i n the results section. GLUCOSE Routine 12/29/2018 10:40 AM Results for this BOILER TENDER procedure are i n the results section. PLATELET COUNT Routine 12/29/2018 10:40 AM Result s for this BOILER TENDER procedure are i n the results section. BUN AND CREATININE Routine 12/29/2018 10:40 AM Re sults for this W/RATIO BOILER TENDER procedure are i n the results section. ELECTROLYTE PANEL Routine 12/29/2018 10:40 AM Res ults for this BOILER TENDER procedure are i n the results section. HEMOGLOBIN Routine 12/29/2018 10:40 AM Results for this BOILER TENDER procedure are i n the results section. NM CARDIAC PET Routine 11/26/2018 3:00 PM PAD (peripheral Res ults for this PERFUSION REST AND/OR CDT artery disease) pro cedure are in STRESS (HCC) the results Type 2 diabetes section. mellitus without complication, unspecified whether remote computer terminal operator insulin use (HCC) Atherosclerosis of [place] coronary artery of [place] heart, angina presence unspecified TREADMILL Routine 11/26/2018 [...] 520 ms QTC Calculation(Bazett) 514 ms P [place] 72 degrees R [place] 37 degrees T [place] 61 degrees Sinus bradycardia with 1st d [...] 500 ms QTC Calculation(Bazett) 511 ms P [place] 70 degrees R [place] 29 degrees T [place] 13 degrees Normal sinus rhythm Septal infarct (cited on or before 28-MAY-2018) Prolonged QT Abnormal ECG When compared with ECG of 13:21, No significant change was fo und ECG 12-LEAD Routine 10/29/2018 10:34 AM CDT Resu lts for this procedure are in the results section . after 07/31/2018 Results RHYTHM STRIP - SCAN (01/20/2019 12:50 PM BOILER TENDER)Only the most recent of3 results within the time period is included. Narrative Performed At This result has an attachment that is no t available. POC-Glucose meter (01/16/2019 11:28 AM BOILER TENDER)Only the most recent of32 results within the time period is included. POC-Glucose Meter 100Comment: : TESTED AT 70 - 110 mg/dL [facility] [id number] [facility], [id number]: Lead Section Supervisor/Barn Worker ID = [id number] for BOZENA MONIQUE Specimen Blood Performing Organization Address City/State/Zipcode Phone Number [facility] [address] [place] [address] CENTER Manual Differential (01/16/2019 4:23 AM BOILER TENDER) % Neutros 59 % [facility] % Lymphs 25 % [facility] % Monos 9 % [facility] % Eos 1 % [facility] % Myelo 1 (H) 0 - 0 % [facility] % Bands 4 0 - 10 % [facility] # Neutros 3.89 1.56 - 6.13 K/ul [facility] # Lymphs 1.65 1.18 - 3.74 K/ul [facility] # Monos 0.59 (H) 0.24 - 0.36 K/uL [facility] # Eos 0.07 0.04 - 0.36 K/uL [facility] # Myelo 0.07 (H) 0.00 - 0.00 K/uL [facility] # Bands 0.26 0.00 - 0.80 K/uL [facility] Total Counted 100 [facility] Platelet Morphology Normal [facility] Hypersegmented Neutrophils Present [facility] Hypochromia 1+ few [facility] Anisocytosis 1+ few [facility] Macrocytes 1+ few [facility] Artifact Present [facility] Platelet Conc Adequate [facility] Specimen Blood Narrative Performed At Received comment: [facility] User comments: Slide comments: Performing Organization Address [facility]/Zipcode Phone Number [facility] [address] [place] [address] PROSPECT CBC with platelet count + automated diff (01/16/2019 4:23 AM BOILER TENDER)Only the most recent of9 resultswithin the time period is included. WBC 6.6 3.5 - 10.5 K/L [facility] RBC 2.77 (L) 3.93 - 5.22 M/L [facility] Hemoglobin 8.2 (L) 11.2 - 15.7 GM/DL [facility] Hematocrit 26.6 (L) 34.1 - 44.9 % [facility] MCV 96.0 (H) 79.4 - 94.8 fL [facility] MCH 29.6 25.6 - 32.2 pg [facility] MCHC 30.8 (L) 32.2 - 35.5 GM/DL [facility] RDW 14.9 (H) 11.7 - 14.4 % [facility] Platelets 202 150 - 450 K/CU MM [facility] MPV 11.4 9.4 - 12.3 fL [facility] nRBC 0 0 - 0 /100 WBC [facility] Specimen Blood Performing Organization Address City/[facility]/Zipcode Phone Number [facility] [address] [place] [address] PROSPECT Basic Metabolic Panel (01/16/2019 4:23 AM BOILER TENDER)Only the most recent of8 results within the time period is included. Sodium 142 136 - 145 meq/L [facility] Potassium 4.0 3.5 - 5.1 meq/L [facility] Chloride 112 (H) 98 - 107 meq/L [facility] CO2 25 22 - 29 meq/L [facility] BUN 13 7 - 21 mg/dL [facility] Creatinine 1.28 (H) 0.57 - 1.25 mg/dL [facility] Glucose 89 70 - 105 mg/dL [facility] Calcium 8.9 8.4 - 10.2 mg/dL [facility] EGFR 50Comment: ESTIMATED GFR IS mL/min/1.73 sq m [facility] NOT ACCURATE CREATININE [facility] CLEARANCE IN PREDICTING GLOMERULAR FILTRATION RATE. ESTIMATED GFR IS NOT APPLICABLE FOR DIALYSIS PATIENTS. Specimen Blood Performing Organization Address City/State/Zipcode Phone Number [facility] [address] [place] [address] CENTER US renal complete (01/11/2019 8:59 AM BOILER TENDER) Specimen Narrative Performed At FINAL REPORT Transmit Promo TECHNIQUE: Grayscale ultrasound of the k idneys [...] MD Report Verified Date/Time:01/11/2019 10:37:05 Reading Location: [facility] B1 C013Y CT Body R [facility] health Room Procedure Note Interface, External Ris In - 01/11/2019 10:39 AM BOILER TENDER FINAL REPORT TECHNIQUE: Grayscale ultrasound of the [...] Verified Date/Time: 01/11/2019 1 0:37:05 Reading Location: [facility] C013Y CT Body R eading Room Performing Organization Address City/State/Zipcode Phone Number RIS Phosphorus (01/11/2019 4:15 AM BOILER TENDER)Only the most recent of4 resultswithin the time period is included. Phosphorus 2.8 2.3 - 4.7 mg/dL [facility] Specimen Blood Performing Organization Address City/[facility]/Zipcode Phone Number [address] [address] CENTER Magnesium (01/11/2019 4:15 AM BOILER TENDER)Only the most recent of4 resultswithin the time period is included. Magnesium 1.9 1.6 - 2.6 mg/dL [facility] Specimen Blood Performing Organization Address City/[facility]/Zipcode Phone Number [address] [address] PR[facility]PECT PTH, intact (01/10/2019 2:55 PM BOILER TENDER) PTH 200.6 (H) 8.5 - 72.5 pg/mL [facility] Specimen Blood Performing Organization Address [facility]/Zipcode Phone Number [address] [address] CENTER Uric acid (01/10/2019 5:04 AM BOILER TENDER) Uric Acid 7.3 (H) 2.6 - 7.2 mg/dL [facility] Specimen Blood Performing Organization Address City/[facility]/Zipcode Phone Number [address] [address] [facility] TRANSFUSION SERVICE REPORT - SCAN (01/08/2019 5:54 PM BOILER TENDER)Only the most recent of4 resultswithin the time period is included. Narrative Performed At This result has an attachment that is no t available. PT/aPTT (01/08/2019 4:36 PM BOILER TENDER) Protime 15.7 (H) 11.9 - 14.2 seconds [facility] INR 1.3 <=5.9 [facility] PTT 34.4 22.5 - 36.0 seconds [facility] Specimen Blood Narrative Performed At Effective 07/16/2018: PT Reference Range [facility] Change New: 11.9-14.2Previous: 11.7-14.7 RECOMMENDED COUMADIN/WARFARIN INR THERAPY RANGES STANDARD DOSE: 2.0-3.0Includes: PROPHYLAXIS for venous thrombosis, systemic embolization; TREATMENT for venous thrombosis and/or pulmonary embolus. HIGH RISK: Target INR is 2.5-3.5 for patients wiht mechanical heart valves. Performing Organization Address [facility] Phone Number [address] [address] PR[facility] POC ACTIVATED CLOTTING TIME (01/08/2019 1:08 PM BOILER TENDER)Only the most recent of2 resultswithin the time period is included. Activated Clotting Time 274Comment: Reference sec [facility] Range: 74-137 seconds, MEDICAL CENTER Baseline/TESTED AT [address] [address] Specimen Blood Performing Organization Address [facility]/Zipcode Phone Number [address] [address] PROSPECT Prepare RBC (01/07/2019 7:14 PM BOILER TENDER) Unit ABO O Pos SAFETRACE TX UNIT NUMBER [id number] SAFETRACE TX Status READY SAFETRACE TX Blood Bank Product RED BLOOD CELLS SAFETRACE TX PRODUCT CODE [id number] SAFETRACE TX Unit ABO O Pos SAFETRACE TX UNIT NUMBER [id number] SAFETRACE TX Status READY SAFETRACE TX Blood Bank Product RED BLOOD CELLS SAFETRACE TX PRODUCT CODE [id number] SAFETRACE TX CROSSMATCH COMPATIBLE SAFETRACE TX CROSSMATCH COMPATIBLE SAFETRACE TX Performing Organization Address [facility] Phone Number SAFETRACE TX Type and screen, automated (12/29/2018 10:40 AM BOILER TENDER)Only the most recent of2 resultswithin the time period is included. ABO/RH AUTOMATED (BEAKER) O POSITIVE [facility] Ab Scrn NEGATIVE [facility] Specimen Blood Performing Organization Address [facility] Phone Number [address] [address] BUN and Creatinine (12/29/2018 10:40 AM BOILER TENDER) BUN 26 (H) 7 - 21 mg/dL [facility] Creatinine 1.83 (H) 0.57 - 1.25 mg/dL [facility] EGFR 33Comment: ESTIMATED GFR IS mL/min/1.73 sq m [facility] NOT ACCURATE CREATININE [facility] CLEARANCE IN PREDICTING GLOMERULAR FILTRATION RATE. ESTIMATED GFR IS NOT APPLICABLE FOR DIALYSIS PATIENTS. Specimen Blood Performing Organization Address [facility] Phone Number [address] [address] CENTER Platelet count (12/29/2018 10:40 AM BOILER TENDER) Platelets 112 (L) 150 - 450 K/CU MM [facility] Specimen Blood Performing Organization Address [facility] Phone Number [address] [address] PROSPECT Hemoglobin (12/29/2018 10:40 AM BOILER TENDER) Hemoglobin 13.1 11.2 - 15.7 GM/DL [facility] Specimen Blood Performing Organization Address City/State/Zipcode Phone Number [address] [address] PROSPECT Glucose (12/29/2018 10:40 AM BOILER TENDER) Glucose 134 (H) 70 - 105 mg/dL [facility] Specimen Blood Performing Organization Address City/[facility]/Zipcode Phone Number [address] [address] PROSPECT Electrolytes (12/29/2018 10:40 AM BOILER TENDER) Sodium 138 136 - 145 meq/L [facility] Potassium 4.7 3.5 - 5.1 meq/L [facility] Chloride 107 98 - 107 meq/L [facility] CO2 26 22 - 29 meq/L [facility] Specimen Blood Performing Organization Address City/[facility]/Zipcode Phone Number [address] [address] PROSPECT NM myocardial perfusion PET (rest and stress) (11/26/2018 3:00 PM CDT) Specimen Narrative Performed At FINAL REPORT Transmit Promo PROCEDURE: MYOCARDIAL PERFUSION PET IMAG ING (Rest/Stress) CPT CODE: [id number] INDICATION: Known CAD CARDIOVASCULAR PROFILE: CAD History: [...] MD Report Verified Date/Time:11/26/2018 16:17:24 Reading Location: [address] Med Reading Room Procedure Note Interface, External Ris In - 11/26/2018 4:56 PM CDT FINAL REPORT PROCEDURE: MYOCARDIAL PERFUSION PET IMAG ING (Rest/Stress) CPT CODE: [id number] INDICATION: Known CAD CARDIOVASCULAR PROFILE: CAD History: [...] Verified Date/Time: 11/26/2018 1 6:17:24 Reading Location: [address] Reading Room Performing Organization Address City/State/Zipcode [...] External Ris In - 01/12/2019 12:40 PM BOILER TENDER Protocol Name Regadenoson Time In Exercise Phase [...] on 01/12/2019 12:40:38 PM Performing Organization Address City/[facility] Phone Number [facility] ECG 12 lead (11/26/2018 2:30 PM CDT)Only the most recent of2 resultswithin the time period is included. Specimen Narrative Performed At Ventricular Rate 59 BPM GE MUSE Atrial Rate 59 BPM P-R Interval 242 ms QRS Duration 120 ms Q-T Interval 520 ms QTC Calculation(Bazett) 514 ms P [place] 72 degrees R [place] 37 degrees T [place] 61 degrees Sinus bradycardia with 1st degree [...] 520 ms QTC Calculation(Bazett) 514 ms P [place] 72 degrees R [place] 37 degrees T [place] 61 degrees Sinus bradycardia with 1st degree A-V bl ock Septal infarct , age undetermined Abnormal ECG Confirmed by MD Phillips Mahboob ([id number]) on 11/27/2018 12:11:21 PM Performing Organization Address City/State/Zipcode Phone Number [facility] CARDIAC CATH REPORT - SCAN (11/05/2018 11:22 [...] (11/03/2018 9:02 AM CDT) ABO Grouping O [facility] Rh Factor POS [facility] Specimen Blood Performing Organization Address [facility]/Zipcode Phone Number [facility] [address] [place] [phone] Antibody screen (11/03/2018 8:26 AM CDT) Ab Scrn POSITIVEComment: PEG. IS - SC1: [facility] 0, SC2: 0, SC3: 0. CC - SC1: [address] 3+, SC2: NT, SC3: 3+. Specimen Blood Performing Organization Address [facility] Phone Number [address] [phone] after 07/31/2018 Insurance Payer Benefit Plan / Group Subscriber ID Type Phone A ddress [employer] - MEDICARE MGD [employer] MEDICARE ADV xxxxxxxxx Maps Contracted CARE Advance Directives For more information, please contact:[address] [phone] Code Status Date Activated Date Inactivated Comments [...]
--- OUTSIDE RECORDS SUMMARY | 2019-08-01 17:33 | XMS REPORT | Continuity of Care Document ---
:1945 Author Organization [facility] t Address [address] [place] [address] Care Team Providers Name Role Phone Martin Cook Primary Care Physician Unavailable Franki VILLAGOMEZ Attending Clinician Franki VILLAGOMEZ Attending Clinician Erlinda Hair Attending Clinician Unavailable FRANKI Attending Clinician Unavailable Pritesh Mancia MD Attending Clinician Gavino VILLAGOMEZ Attending Clinician FRANKI Admitting Clinician Unavailable Payers Payer Name Policy Type Policy Number Effective Date Expiration Source Date HUMANA - MEDICARE MGD x[facility] Problems Condition Condition Condition Status Onset Resolution Last Treating Co mments Source Name Details Category Date Date Treatment Clinician Date 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 of 1-21 [facility] - naknek naknek 00:00: Medical arteries arteries 00 Center of of extremitie extremitie s with s with intermitte intermitte nt nt claudicati claudicati on, on, bilateral bilateral legs legs Peripheral Peripheral Disease Active [facility] artery artery 9-16 [facility] - disease disease 00:00: Medical 00 Center PAD PAD Disease Active [facility] (periphera (periphera 4-30 Soledad kes - l artery l artery 00:00: Medica l disease) disease) 00 Center Allergies, Adverse Reactions, Alerts Allergy Allergy Status Severity Reaction(s) Onset Inactive Treating Comm ents Source Name Type Date Date Clinician Thomas Torres Active Hives May take [facility] ty to 4-10 by mouth. [facility] - adverse 00:00: Has an Medical reaction 00 issue [facility] Social History Social Habit Start Date Stop Date Quantity Comments Source History SDOH Alcohol [facility] - Std Drinks [facility] History SDOH Alcohol [facility] - Binge [facility] Sex Assigned At [facility] kes - [facility] History SDOH Alcohol 2018-05-28 2018-05-[address] [facility] - Frequency 00:00:00 00:00:00 Medical Center Smoking Status Start Date Stop Date Source Never smoker [facility] M edical Center Medications Ordered Filled Start Stop Current Ordering Indication Dosage Frequency Signature Comments Components Source Medication Medication Date Date Medication? Clinician (SIG) Name Name gabapentin 2018-02- No 600mg QD Take [address] (NEURONTIN) 03-18 capsules Gildardo es - 300 MG 00:00: 23:59 (600 mg Medical capsule 00 :00 total) by Center mouth nightly. acetaminoph 2018-02- No 650mg Take [address] en 03-18 tablets [facility] - (TYLENOL) 00:00: 23:59 (650 mg Medi ava 325 MG 00 :00 total) by Center tablet mouth every 6 (six) hours for 360 days. insulin Yes 20U Inject 20 [facility] glargine 9-16 Units [facility] - (LANTUS) 07:43: subcutaneo Med ical 100 unit/mL 31 usly as Cente r injection needed Use as directed . rosuvastati Yes 20mg QD Take [address] n (CRESTOR) 4-30 by mouth Luke s - 20 MG 07:55: daily. Medical tablet 46 Center aspirin 81 Yes 81mg QD Take [address] MG EC 4-30 by mouth [facility] - tablet 07:55: daily. Medical 46 Center clopidogrel 2019- No 75mg QD Take [address] (PLAVIX) 75 -30 06-16 tablet (75 L ukes - mg tablet 00:00: 23:59 mg total) Me dical 00 :00 by mouth Center daily. furosemide Yes 40mg QD Take [address] (LASIX) 40 4-10 by mouth [facility] - MG tablet 13:34: daily. Medica l 16 Center carvedilol Yes 6.25mg Take 6.[address] (COREG) 4-10 mg by [facility]ukes - 6.25 MG 13:34: mouth 2 Medical tablet 16 (two) Center times daily with breakfast and dinner. potassium Yes 20meq QD Take [address] chloride SA 4-10 mEq by [facility] - (K-DUR,KLOR 13:34: mouth Medic al -CON) 20 15 daily. Center MEQ tablet sacubitril- Yes 1{tbl} Q.5D Take [address] valsartan 4-10 tablet by [facility] - (ENTRESTO) 13:34: mouth 2 Medi ava 24-26 mg 15 (two) Center Tab times daily. amiodarone Yes 200mg QD Take [address] (PACERONE) 4-10 mg by [facility]ukes - 200 MG 13:34: mouth Medical tablet 15 daily. [place] Vital Signs Vital Name Observation Time Observation Value Comments Source Systolic blood 2019-01-16 15:00:00 123 mm[Hg] [facility] Diastolic blood 2019-01-16 15:00:00 75 mm[Hg] [facility] Heart rate 2019-01-16 15:00:00 61 /min [facility] Body temperature 2019-01-16 15:00:00 36.11 Michela [facility] Respiratory rate 2019-01-16 15:00:00 17 /min [facility] Oxygen saturation in 2019-01-16 15:00:00 100 /min [facility] Arterial blood by Medical Ce nter Pulse oximetry Body weight Measured 2019-01-16 09:00:00 97.75 kg [facility] BMI 2019-01-16 09:00:00 36.99 kg/m2 [facility] Body height 2019-01-08 05:35:00 162.6 cm [facility] Procedures Procedure Date / Time Performing Clinician Source Performed RHYTHM STRIP - SCAN 2019-01-20 12:50:46 Provider, Default [facility] Scanning [facility] RHYTHM STRIP - SCAN 2019-01-20 12:50:22 Provider, [facility] RHYTHM STRIP - SCAN 2019-01-20 12:42:24 Provider, [facility] POCT-GLUCOSE METER 2019-01-16 11:28:00 [facility] 2019-01-16 08:16:00 [facility] BASIC METABOLIC PANEL (7) 2019-01-16 04:23:00 Richie Manley [facility] CBC W/PLT COUNT & AUTO 2019-01-16 04:23:00 Vineet [facility] (CELLAVISION MANUAL DIFF) 2019-01-16 04:23:00 Richie Manley [facility] POCT-GLUCOSE METER 2019-01-15 20:16:00 [facility] POCT-GLUCOSE METER 2019-01-15 17:00:00 Franki [facility] POCT-GLUCOSE METER 2019-01-15 12:49:00 Franki [facility] POCT-GLUCOSE METER 2019-01-15 08:33:00 [facility] POCT-GLUCOSE METER 2019-01-14 20:56:00 [facility] POCT-GLUCOSE METER 2019-01-14 16:35:00 [facility] POCT-GLUCOSE METER 2019-01-14 12:35:00 [facility] POCT-GLUCOSE METER 2019-01-14 07:41:00 Franki [facility] POCT-GLUCOSE METER 2019-01-13 21:22:00 Franki [facility] POCT-GLUCOSE METER 2019-01-13 16:59:00 [facility] POCT-GLUCOSE METER 2019-01-13 12:32:00 [facility] POCT-GLUCOSE METER 2019-01-13 07:44:00 [facility] BASIC METABOLIC PANEL (7) 2019-01-13 05:47:00 Richie Manley [facility] CBC W/PLT COUNT & AUTO 2019-01-13 05:47:00 Vineet [facility] POCT-GLUCOSE METER 2019-01-12 21:24:00 [facility] POCT-GLUCOSE METER 2019-01-12 19:08:00 [facility] POCT-GLUCOSE METER 2019-01-12 17:14:00 [facility] POCT-GLUCOSE METER 2019-01-12 09:19:00 [facility] BASIC METABOLIC PANEL (7) 2019-01-12 04:14:00 Richie Manley [facility] CBC W/PLT COUNT & AUTO 2019-01-12 04:14:00 Vineet [facility] POCT-GLUCOSE METER 2019-01-11 20:47:00 [facility] POCT-GLUCOSE METER 2019-01-11 16:56:00 [facility] POCT-GLUCOSE METER 2019-01-11 11:56:00 [facility] POCT-GLUCOSE METER 2019-01-11 09:10:00 [facility] US RENAL COMPLETE 2019-01-11 08:59:00 Beny Banks [facility] BASIC METABOLIC PANEL (7) 2019-01-11 04:15:00 Argilanavamarie Yesi dominguez [facility] MAGNESIUM 2019-01-11 04:15:00 Patrick Raman [facility] PHOSPHORUS 2019-01-11 04:15:[address] [facility] CBC W/PLT COUNT & AUTO 2019-01-11 04:15:00 Patrick [facility] POCT-GLUCOSE METER 2019-01-10 22:14:00 [facility] POCT-GLUCOSE METER 2019-01-10 16:52:00 Franki [facility] PTH, INTACT 2019-01-10 14:55:00 Darren [facility] CBC W/PLT COUNT & AUTO 2019-01-10 14:55:00 [facility] POCT-[facility]UCOSE METER 2019-01-10 11:41:00 Franki [facility] POCT-GLUCOSE METER 2019-01-10 09:30:00 Franki [facility] BASIC METABOLIC PANEL (7) 2019-01-10 05:04:00 Patrick Yesi [facility] MAGNESIUM 2019-01-10 05:04:[address] [facility] PHOSPHORUS 2019-01-10 05:04:[facility] URIC [facility]ID 2019-01-10 05:04:00 Darren [facility] POCT-GLUCOSE METER 2019-01-09 21:22:00 Franki [facility] POCT-GLUCOSE METER 2019-01-09 17:05:00 [facility] POCT-GLUCOSE METER 2019-01-09 12:06:00 Franki [facility] POCT-GLUCOSE METER 2019-01-09 07:40:00 Franki [facility] BASIC METABOLIC PANEL (7) 2019-01-09 03:45:00 Patrick Yesi [facility] MAGNESIUM 2019-01-09 03:45[facility]-01-09 03:45:[facility] CBC W/PLT COUNT & AUTO 2019-01-09 03:11:00 Manisundbeth, [facility] TRANSFUSION SERVICE REPORT 2019-01-08 17:54:33 Provider, Carly [facility] POCT-GLUCOSE METER 2019-01-08 16:43:00 Franki [facility] BASIC METABOLIC PANEL (7) 2019-01-08 16:36:00 Endy Alexis [facility] PT/APTT 2019-01-08 16:36:00 Endy Alexis [facility] MAGNESIUM 2019-01-08 16:36:[address] [facility] PHOSPHORUS 2019-01-08 16:36:[address] [facility] CBC W/PLT COUNT & AUTO 2019-01-08 16:36:00 [facility] POCT-ACT 2019-01-08 13:08:00 Franki [facility] POCT-ACT 2019-01-08 12:08:00 Franki [facility] BYPASS,FEMORAL-PERONEAL 2019-01-08 07:30:00 Franki [facility] HARVEST,VEIN 2019-01-08 07:30:00 [facility] CBC W/PLT COUNT & AUTO 2019-01-08 06:39:00 Franki mauri [facility] POCT-GLUCOSE METER 2019-01-08 06:01:00 Franki [facility] PREPARE RBC 2019-01-07 19:14:00 Franki [facility] TRANSFUSION SERVICE REPORT 2018-12-30 17:55:33 Provider, Carly [facility] HEMOGLOBIN 2018-12-29 10:40:00 Buddy Garcia [facility] ELECTROLYTE PANEL 2018-12-29 10:40:00 Buddy Garcia [facility] BUN AND CREATININE W/RATIO 2018-12-29 10:40:00 Buddy Garcia [facility] PLATELET COUNT 2018-12-29 10:40:00 Buddy Garcia [facility] GLUCOSE 2018-12-29 10:40:00 Buddy Garcia [facility] TYPE AND SCREEN, AUTOMATED 2018-12-29 10:40:00 Buddy Garcia [facility] NM CARDIAC PET PERFUSION 2018-11-26 15:00:00 Michael Mancia o [facility] - REST AND/OR STRESS Medical Cente r TREADMILL 2018-11-26 14:31:41 Unknown, Hl7 [facility] - TOLERANCE(NON-NUCLEAR Medical Ce nter TREADMILL) ECG 12-LEAD 2018-11-26 14:30:31 Unknown, 7 [facility] TRANSFUSION SERVICE REPORT 2018-11-05 18:03:41 Provider, [facility] CARDIAC CATH REPORT - SCAN 2018-11-05 11:22:00 Provider, [facility] TRANSFUSION SERVICE REPORT 2018-11-04 18:03:03 Provider, Default [facility] - [facility] ANTIBODY IDENTIFICATION 2018-11-04 16:22:00 Ian Doan [facility] PERIPHERAL ANGIOS / 2018-11-03 10:08:[address] [facility] AORTOGRAM [facility] ABORH, MANUAL 2018-11-03 09:02:00 Nikki Araujo [facility] TYPE AND SCREEN, AUTOMATED 2018-11-03 08:26:00 Kellie Law [facility] ANTIBODY SCREEN 2018-11-03 08:26:00 Kellie Law [facility] BASIC METABOLIC PANEL (7) 2018-10-29 11:04:00 Ian Doan [facility] CBC W/PLT COUNT & AUTO 2018-10-29 11:04:00 Ian Doan [facility] ECG 12-LEAD 2018-10-29 10:34:21 Unknown, Hl7 [facility] Encounters Start End Encounter Admission Attending Care Care Encounter Source Date/Time Date/Time Type Type Clinicians Facility Department ID 2019-05-27 2019-05-27 Office KWAME Doan [id number] 09:13:18 12:39:17 Visit Jayer AMBULATOR [id number] Y [id number] [id number] 2019-03-18 2019-03-18 Office KWAME Doan [id number] 08:40:49 09:39:44 Visit Ian AMBULATOR [id number] Y [id number] 2019-03-04 2019-03-04 Office KWAME Doan [id number] 09:20:10 11:54:55 Visit Ian AMBULATOR [id number] Y [id number] [id number] 2018-11-17 2018-11-17 Office Michael Mancia [id number] 15:58:42 16:43:42 Visit AMBULATOR [id number] Y [id number] [id number] Results Test Description Test Time Test Comments Results Result Comments Source POC-Glucose meter 2019-01-16 11:39:00 Test Item Value Reference Range Interpretation Comme nts POC-Glucose Meter (test code = 100 mg/dL 70-110 : TESTED AT [facility] [address] [facility] 1538) [facility], [address] 30: Junior Network Administrator/Techni charo ID = [id number] for BOZENA MONIQUE Lab Interpretation (test code = Normal 57465-0) [facility] [id number] 11:39:00 Test Item Value Reference Range Interpretation Comments POC-GLUCOSE METER 100 mg/dL 70-110 : TESTED A T [facility] [address] (BEAKER) (test code = JOSE G James [facility], 1538) [address]: Junior Network Administrator/Techni charo ID = [id number] for BOZENA GEORGE CBC with platelet count + automated [id number] 10:30:00 Test Item Value Reference Range Interpretation Comments WBC (test code = 6690-2) 6.6 3.5- 10.5 K/L RBC (test code = 789-8) 2.77 3.93- 5.22 M/L L MCHC (test code = 786-4) 30.8 32.2- 35.5 GM/DL L Hematocrit (test code = 4544-3) 26.6 % 34.1-44.9 L MCV (test code = 787-2) 96.0 fL 79.4-94.8 H MCH (test code = 785-6) 29.6 pg 25.6-32.2 RDW (test code = 788-0) 14.9 % 11.7-14.4 H Platelets (test code = 777-3) 202 150- 450 K/CU MM MPV (test code = 56282-3) 11.4 fL 9.4-12.3 nRBC (test code = 413) 0 0- 0 /100 WBC Lab Interpretation (test code = Abnormal 31760-7) [facility] [id number] 10:30:00 Test Item Value Reference Range Interpretation Comments % Neutros (test code = 59 % 2816) % Lymphs (test code = 25 % 2817) % Monos (test code = 2818) 9 % % Eos (test code = 2819) 1 % % Myelo (test code = 2822) 1 % 0-0 H % Bands (test code = 2826) 4 % 0-10 # Neutros (test code = 3.89 K/ul 1.56-6.13 2830) # Lymphs (test code = 1.65 K/ul 1.18-3.74 2831) # Monos (test code = 2832) 0.59 K/uL 0.24-0.36 H # Eos (test code = 2834) 0.07 K/uL 0.04-0.36 # Myelo (test code = 2837) 0.07 K/uL 0-0 H # Bands (test code = 2840) 0.26 K/uL 0-0.8 Total Counted (test code = 100 1351) Platelet Morphology (test Normal code = 486) Hypersegmented Neutrophils Present (test code = 3445) Hypochromia (test code = 1+ few 963) Anisocytosis (test code = 1+ few 961) Macrocytes (test code = 1+ few 964) Artifact (test code = Present 3432) Platelet Conc (test code = Adequate 3438) LINA (test code = LINA) Received comment: User comments: Slide comments: Lab Interpretation (test Abnormal code = 24547-5) [facility] W/PLT COUNT & AUTO [id number] 10:30:00 Test Item Value Reference Range Interpretation [...] 486) HYPERSEGMENTATION Present (CELLAVISION)(BEAKER) (test code = 3445) HYPOCHROMIA (BEAKER) (test code = 1+ few 963) ANISOCYTOSIS (BEAKER) (test code = 1+ few 961) MACROCYTES (BEAKER) (test code = 1+ few 964) ARTIFACT (CELLAVISION)(BEAKER) Present (test code = 3432) PLATELET CONCENTRATION Adequate (CELLAVISION)(BEAKER) (test code = 3438) Received comment: User comments: Slide comments:POCT-GLUCOSE [id number] 08:27:00 Test Item Value Reference Range Interpretation Comments POC-GLUCOSE METER 90 mg/dL 70-110 : TESTED A T [facility] [address] (BEAKER) (test code = [place], 1538) [address]: Junior Network Administrator/Techni charo ID = [id number] for BOZENA GOLDBERG Basic Metabolic [id number] 05:15:00 Test Item Value Reference Range Interpretation Comments Sodium (test code = 142 meq/L 805-954 6052-2) Potassium (test code = 4.0 meq/L 3.5-5.1 2823-3) Chloride (test code = 112 meq/L 98-107 H 5-0) CO2 (test code = 25 meq/L 22-29 8-9) BUN (test code = 13 mg/dL 7-21 3094-0) Creatinine (test code = 1.28 mg/dL 0.57-1.25 H 2160-0) Glucose (test code = 89 mg/dL 70-105 2345-7) Calcium (test code = 8.9 mg/dL 8.4-10.2 45998-2) EGFR (test code = 50 mL/min/1.73 [place] [address]-1) NOT ACCURATE CREATININE CLEARANCE IN PREDICTING GLOMERULAR FILTRATION RATE . ESTIMATED GFR I S NOT APPLICABLE FOR DIALYSIS PATIEN TS. Lab Interpretation Abnormal (test code = 12047-9) [facility] METABOLIC [id number] 05:15:00 Test Item Value Reference Range Interpretation Comments SODIUM (BEAKER) 142 meq/L 136-145 (test code = 381) POTASSIUM (BEAKER) 4.0 meq/L 3.5-5.1 (test code = 379) CHLORIDE (BEAKER) 112 meq/L 98-107 H (test code = 382) CO2 (BEAKER) (test 25 meq/L - code = 355) BLOOD UREA NITROGEN 13 [...] NOT APPLICABLE FOR DIALYSIS PATIEN TS. POCT-GLUCOSE [id number] 20:27:00 Test Item Value Reference Range Interpretation Comments POC-GLUCOSE METER 119 mg/dL 70-110 H : TESTED A T [facility] [address] (BEAKER) (test code = [facility], 153) [address]: Junior Network Administrator/Techni charo ID = [id number] for Jeffery Boone POCT-GLUCOSE [id number] 17:11:00 Test Item Value Reference Range Interpretation Comments POC-GLUCOSE METER 122 mg/dL 70-110 H : TESTED A T [facility] [address] (BEAKER) (test code = [facility], 153) [address]: Junior Network Administrator/Techni charo ID = [id number] for Ec at, Cecella POCT-GLUCOSE [id number] 13:01:00 Test Item Value Reference Range Interpretation Comments POC-GLUCOSE METER 113 mg/dL 70-110 H : TESTED A T [facility] [address] (BEAKER) (test code = [facility], 153) [address]: Junior Network Administrator/Techni charo ID = [id number] for NICO NORIEGA, CHIRY POCT-GLUCOSE [id number] 08:45:00 Test Item Value Reference Range Interpretation Comments POC-GLUCOSE METER 98 mg/dL 70-110 : TESTED A T [facility] [address] (BEAKER) (test code = [facility], 153) [address]: Junior Network Administrator/Techni charo ID = [id number] for DENI INANA POCT-GLUCOSE [id number] 21:07:00 Test Item Value Reference Range Interpretation Comments POC-GLUCOSE METER 84 mg/dL 70-110 : TESTED A T [facility] [address] (BEAKER) (test code = [facility], 153) [address]: Junior Network Administrator/Techni charo ID = [id number] for Cassius Pk POCT-GLUCOSE [id number] 16:47:00 Test Item Value Reference Range Interpretation Comments POC-GLUCOSE METER 108 mg/dL 70-110 : TESTED A T [facility] [address] (BEAKER) (test code = [facility], 153) [address]: Junior Network Administrator/Techni charo ID = [id number] for Ryne Isaacsa POCT-GLUCOSE [id number] 15:12:00 Test Item Value Reference Range Interpretation Comments POC-GLUCOSE METER 118 mg/dL 70-110 H : TESTED A T [facility] [address] (BEAKER) (test code = [facility], 1538) [address]: Junior Network Administrator/Techni charo ID = [id number] for DA VIS, RODGER POCT-GLUCOSE [id number] 15:04:00 Test Item Value Reference Range Interpretation Comments POC-GLUCOSE METER 127 mg/dL 70-110 H : TESTED A T [facility] [address] (BEAKER) (test code = [facility]) [address]: Junior Network Administrator/Techni charo ID = [id number] for HU NTER, HIWITHA POCT-GLUCOSE [id number] 14:34:00 Test Item Value Reference Range Interpretation Comments POC-GLUCOSE METER 89 mg/dL 70-110 : TESTED A T [facility] [address] (BEAKER) (test code = [facility]) [address]: Junior Network Administrator/Techni charo ID = [id number] for BATEMAN ER, HIWITHA POCT-GLUCOSE [id number] 13:53:00 Test Item Value Reference Range Interpretation Comments POC-GLUCOSE METER 137 mg/dL 70-110 H : TESTED A T [facility] [address] (BEAKER) (test code = [facility]) [address]: Junior Network Administrator/Techni charo ID = [id number], Hiwitha POCT-GLUCOSE [id number] 12:44:00 Test Item Value Reference Range Interpretation Comments POC-GLUCOSE METER 125 mg/dL 70-110 H : TESTED A T [facility] [address] (BEAKER) (test code = [facility]) [address]: Junior Network Administrator/Techni charo ID = [id number] for OC CRUZ POCT-GLUCOSE [id number] 08:33:00 Test Item Value Reference Range Interpretation Comments POC-GLUCOSE METER 112 mg/dL 70-110 H : TESTED A T [facility] [address] (BEAKER) (test code = [facility]) [address]46: Junior Network Administrator/Techni charo ID = [id number] for ANA PALACIO POCT-GLUCOSE [id number] 07:56:00 Test Item Value Reference Range Interpretation Comments POC-GLUCOSE METER 96 mg/dL 70-110 : TESTED A T [facility] [address] (BEAKER) (test code = [facility]) [address]: Junior Network Administrator/Techni charo ID = [id number] for Danica Pennington BASIC METABOLIC [id number] 07:07:00 Test Item Value Reference Range Interpretation [...] PATIEN TS. CBC W/PLT COUNT & AUTO [id number] 06:52:00 Test Item Value Reference Range Interpretation [...] PERCENT (BEAKER) (test code = 2801) POCT-GLUCOSE [id number] 21:36:00 Test Item Value Reference Range Interpretation Comments POC-GLUCOSE METER 143 mg/dL 70-110 H : TESTED A T [facility] [address] ([employer]) (test [facility] = [facility] [address]: Junior Network Administrator/Techni charo ID = [id number] for DA VIS, RODGER POCT-GLUCOSE [id number] 19:20:00 Test Item Value Reference Range Interpretation Comments POC-GLUCOSE METER 117 mg/dL 70-110 H : TESTED A T [facility] [address] ([employer]) (test code = [facility], 1538) [address]: Junior Network Administrator/Techni charo ID = [id number] for DA VIS, RODGER Treadmill tolerance(Non-Nuclear Treadmill)2019-01-12 12:40:45Interface, External Ris In - 01/12/2019 12:40 PM CSTProtocol Name Regadenoson Time In Exercise Phase00:01:00 Max. Systolic BP 137 mmHgMax Diastolic BP 44 mmHgMax Heart Rate 65 BPMMax Predicted Heart Rate 148 BPMReason For Termination Predetermined end point Reason for Test PAD DM2 Atherosclerosis W/OanginaTarget HR Formula (220 - Age)*100% Arrhythmias none Resting ECG sinus bradycardia ST Changes No Significant Changes Overall Impression Indeterminate due to pharmacological stress Chest Pain none HR Response To Exercise BP Response To Exercise Amiodarone,ASA,CoregLasix,Plavix,Crestor,EntrestoConfirmed by fellow Vinicius Church ([id number]) on 11/26/2018 3:43:08 PMConfirmed by MD GALLO JORGE ([id number])on 01/12/2019 12:40:38 [facility] [id number] 09:30:00 Test Item Value Reference Range Interpretation Comments POC-GLUCOSE METER 100 mg/dL 70-110 : TESTED A T [facility] [address] (BEAKER) (test code = JOSE G James [facility], 1538) [address]: Junior Network Administrator/Techni charo ID = [id number] for ANA PALACIO BASIC METABOLIC [id number] 05:18:00 Test Item Value Reference Range Interpretation [...] PATIEN TS. CBC W/PLT COUNT & AUTO [id number] 04:37:00 Test Item Value Reference Range Interpretation [...] PERCENT (BEAKER) (test code = 2801) POCT-GLUCOSE [id number] 20:59:00 Test Item Value Reference Range Interpretation Comments POC-GLUCOSE METER 95 mg/dL 70-110 : TESTED A T [facility] 6720 (MACIAKER) (test [facility] = [facility], 1538) 55140: Junior Network Administrator/Techni charo ID = [id number] for RODGER SPARKS POCT-GLUCOSE [id number] 17:08:00 Test Item Value Reference Range Interpretation Comments POC-GLUCOSE METER 90 mg/dL 70-110 : TESTED A T [facility] 6720 (MACIAKER) (test code = [facility] Jacob [facility], 1538) 27338: Junior Network Administrator/Techni charo ID = [id number] for BELLE CHAPA POCT-GLUCOSE [id number] 12:10:00 Test Item Value Reference Range Interpretation Comments POC-GLUCOSE METER 118 mg/dL 70-110 H : TESTED A T [facility] 6720 (MACIAKER) (test code = [facility] Jacob [facility], 1538) 09645: Junior Network Administrator/Techni charo ID = [id number] for BELLE GRIFFITHS U/S, RENAL, [id number] 10:37:00Reason for exam:->ckdFINAL REPORT TECHNIQUE: Grayscale ultrasound [...] BLADDER: Unremarkable. IMPRESSION:Unremarkable renal ultrasound. Signed: Silvio Montanaeport Verified Date/Time: 01/11/2019 10:37:05 Reading Location: [facility] C013Y CT Body Reading Room US renal [id number] 10:37:00Interface, External Ris In - 01/11/2019 10:39 AM CSTFINAL REPORT TECHNIQUE: Grayscale ultrasound of the kidneys and bladder. INDICATION: 73-year-old woman with chronic kidney disease. COMPARISON: None. FINDINGS: RIGHT KIDNEY: The right kidney measures 8.7 x 4.1 x 4.6 cm. Cortical thickness measures 1.1 cm. No solid mass lesions. No hydronephrosis. Renal artery and vein are patent. LEFT KIDNEY: The left kidney measures 9.7 x 4.2 x 3.9 cm. Cortical thickness measures 1.7 cm. Nosolid mass lesions. No hydronephrosis. Renal artery and vein are patent. BLADDER: Unremarkable. IMPRESSION:Unremarkable renal ultrasound. Signed: Silvio Montana MDReport Verified Date/Time: 01/11/2019 10:37:05 Reading Location: [facility] C013Y CT Body [facility] [id number] 09:22:00 Test Item Value Reference Range Interpretation Comments POC-GLUCOSE METER 75 mg/dL 70-110 : TESTED A T [facility] 6720 (BEAKER) (test code = [facility], 1538) 90514: Junior Network Administrator/Techni charo ID = [id number] for FRANSICO BAUMANN, ROBEWITHAmy [id number] 04:57:00 Test Item Value Reference Range Interpretation Comments Magnesium (test code = 14682-3) 1.9 mg/dL 1.6-2.6 Lab Interpretation (test code = Normal 55029-1) [facility] 04:57:00 Test Item Value Reference Range Interpretation Comments Phosphorus (test code = 2777-1) 2.8 mg/dL 2.3-4.7 Lab Interpretation (test code = Normal 54044-6) [facility]2019-11-24 04:57:00 Test Item Value Reference Range Interpretation Comments PHOSPHORUS (BEAKER) (test code = 2.8 mg/dL 2.3-4.7 604) [id number] 04:57:00 Test Item Value Reference Range Interpretation Comments MAGNESIUM (BEAKER) (test code = 1.9 mg/dL 1.6-2.6 627) BASIC METABOLIC [id number] 04:57:00 Test Item Value Reference Range Interpretation [...] PATIEN TS. CBC W/PLT COUNT & AUTO [id number] 04:32:00 Test Item Value Reference Range Interpretation [...] PERCENT (BEAKER) (test code = 2801) POCT-GLUCOSE [id number] 22:26:00 Test Item Value Reference Range Interpretation Comments POC-GLUCOSE METER 95 mg/dL 70-110 : TESTED A T [facility] 6720 (BEAKER) (test code = [facility], 1538) 60848: Junior Network Administrator/Techni charo ID = [id number] for Beena Reed POCT-GLUCOSE [id number] 17:04:00 Test Item Value Reference Range Interpretation Comments POC-GLUCOSE METER 98 mg/dL 70-110 : TESTED A T [facility] 6720 (BEAKER) (test code = [facility], 1538) 51619: Junior Network Administrator/Techni charo ID = [id number] for BELLE CHAPA PTH, [id number] 16:02:00 Test Item Value Reference Range Interpretation Comments PTH (test code = 2731-8) 200.6 pg/mL 8.5-72.5 H Lab Interpretation (test code = Abnormal 06036-0) [facility], [id number] 16:02:00 Test Item Value Reference Range Interpretation Comments PARATHYROID HORMONE INTACT 200.6 pg/mL 8.5-72.5 H (BEAKER) (test code = 577) CBC W/PLT COUNT & AUTO [id number] 15:09:00 Test Item Value Reference Range Interpretation [...] PERCENT (BEAKER) (test code = 2801) POCT-GLUCOSE [id number] 11:53:00 Test Item Value Reference Range Interpretation Comments POC-GLUCOSE METER 132 mg/dL 70-110 H : TESTED A T [facility] 6720 (BEAKER) (test code = [facility], 1538) 08084: Junior Network Administrator/Techni charo ID = [id number] for Robe Isaacswitha POCT-GLUCOSE [id number] 09:42:00 Test Item Value Reference Range Interpretation Comments POC-GLUCOSE METER 112 mg/dL 70-110 H : TESTED A T [facility] 6720 (BEAKER) (test code = [facility], 1538) 23999: Junior Network Administrator/Techni charo ID = [id number] for Ellen bean, Robewitha Uric [id number] 09:14:00 Test Item Value Reference Range Interpretation Comments Uric Acid (test code = 3084-1) 7.3 mg/dL 2.6-7.2 H Lab Interpretation (test code = Abnormal 55290-9) [facility] [id number] 09:14:00 Test Item Value Reference Range Interpretation Comments URIC ACID (BEAKER) (test code = 7.3 mg/dL 2.6-7.2 H 773) [id number] 06:14:00 Test Item Value Reference Range Interpretation Comments PHOSPHORUS (BEAKER) (test code = 2.8 mg/dL 2.3-4.7 604) [id number] 06:14:00 Test Item Value Reference Range Interpretation Comments MAGNESIUM (BEAKER) (test code = 1.9 mg/dL 1.6-2.6 627) BASIC METABOLIC [id number] 06:14:00 Test Item Value Reference Range Interpretation [...] NOT APPLICABLE FOR DIALYSIS PATIEN TS. POCT-GLUCOSE [id number] 21:33:00 Test Item Value Reference Range Interpretation Comments POC-GLUCOSE METER 113 mg/dL 70-110 H : TESTED A T [facility] 6720 ([employer]) (test code = Habeas [facility], 1538) 46093: Junior Network Administrator/Techni charo ID = [id number] for DA VIOLETA FONTENOTO POCT-GLUCOSE [id number] 17:16:00 Test Item Value Reference Range Interpretation Comments POC-GLUCOSE METER 113 mg/dL 70-110 H : TESTED A T [facility] 6720 (FeedbackAKER) (test code = [place] [facility], 1538) 30987: Junior Network Administrator/Techni charo ID = [id number] for TORO WICKLAKESHA RIDDHI POCT-GLUCOSE [id number] 12:17:00 Test Item Value Reference Range Interpretation Comments POC-GLUCOSE METER 166 mg/dL 70-110 H : TESTED A T [facility] 6720 (BEAKER) (test code = JOSE G James [facility], 1538) 42013: Junior Network Administrator/Techni charo ID = [id number] for CHINTAN MCCLELLAND POCT-GLUCOSE [id number] 07:51:00 Test Item Value Reference Range Interpretation Comments POC-GLUCOSE METER 143 mg/dL 70-110 H : TESTED A T [facility] 6720 (BEAKER) (test code = JOSE G James [facility], 1538) 92663: Junior Network Administrator/Techni charo ID = [id number] for Pe Neena harding [id number] 06:28:00 Test Item Value Reference Range Interpretation Comments MAGNESIUM (BEAKER) 1.8 mg/dL 1.6-2.6 Specimen slightly (test code = 627) hemolyzed [id number] 06:28:00 Test Item Value Reference Range Interpretation Comments PHOSPHORUS (BEAKER) 2.5 mg/dL 2.3-4.7 Specimen slightly (test code = 604) hemolyzed BASIC METABOLIC [id number] 06:28:00 Test Item Value Reference Range Interpretation [...] PATIEN TS. CBC W/PLT COUNT & AUTO [id number] 04:20:00 Test Item Value Reference Range Interpretation [...] 0-1 PERCENT (BEAKER) (test code = 2801) [id number] 17:40:00 Test Item Value Reference Range Interpretation Comments PHOSPHORUS (BEAKER) (test code = 3.3 mg/dL 2.3-4.7 604) [id number] 17:40:00 Test Item Value Reference Range Interpretation Comments MAGNESIUM (BEAKER) (test code = 1.8 mg/dL 1.6-2.6 627) BASIC METABOLIC [id number] 17:40:00 Test Item Value Reference Range Interpretation [...] S NOT APPLICABLE FOR DIALYSIS PATIEN TS. [id number] 17:03:00 Test Item Value Reference Range Interpretation Comments Protime (test code = 15.7 11.9- 14.2 H 5902-2) seconds INR (test code = 1.3 <=5.9 6301-6) PTT (test code = 34.4 22.5- 36.0 39726-0) seconds LINA (test code = LINA) Effective 07/16/2018: PT Reference Range ChangeNew: 11.9-14.2 Previous: 11.7-14.7 RECOMMENDED COUMADIN/WARFARIN INR THERAPY RANGESSTANDARD DOSE: 2.0-3.0 Includes: PROPHYLAXIS for venous thrombosis, systemic embolization; TREATMENT for venous thrombosis and/or pulmonary embolus.HIGH RISK: Target INR is 2.5-3.5 for patients wiht mechanical heart valves. Lab Interpretation Abnormal (test code = 67397-8) [facility] HospitalPT/[id number] 17:03:00 Test Item Value Reference Range Interpretation [...] mechanical heart valves.CBC W/PLT COUNT & AUTO [id number] 16:56:00 Test Item Value Reference Range Interpretation [...] PERCENT (BEAKER) (test code = 2801) POCT-GLUCOSE [id number] 16:55:00 Test Item Value Reference Range Interpretation Comments POC-GLUCOSE METER 200 mg/dL 70-110 H : TESTED A T [facility] 6720 (BEAKER) (test code = [facility], 1538) 38211: Junior Network Administrator/Techni charo ID = [id number] for VELMA GONZALEZ JOSE POC ACTIVATED CLOTTING [id number] 13:51:00 Test Item Value Reference Range Interpretation Comments Activated Clotting Time 274 sec Refe rence Range: 74-137 (test code = 441) seconds, B aseline/TESTED AT [facility] 67[address] [facility] 7703 0 [facility] HospitalPOCT-[id number] 13:51:00 Test Item Value Reference Range Interpretation Comments ACTIVATED CLOTTING TIME 274 sec Refe rence Range: (BEAKER) (test code = 74-137 seconds, 441) Baseline/TESTED AT [facility] [address] [facility] 7703 0 [id number] 13:51:00 Test Item Value Reference Range Interpretation Comments ACTIVATED CLOTTING TIME 323 sec Refe rence Range: (BEAKER) (test code = 74-137 seconds, 441) Baseline/TESTED AT [facility] 6720 [facility] [place] 7703 0 CBC W/PLT COUNT & AUTO [id number] 07:44:00 Test Item Value Reference Range Interpretation [...] PERCENT (BEAKER) (test code = 2801) POCT-GLUCOSE [id number] 06:13:00 Test Item Value Reference Range Interpretation Comments POC-GLUCOSE METER 123 mg/dL 70-110 H : TESTED A T [facility] 6720 (BEAKER) ([facility] 1538[facility] 01874: Junior Network Administrator/Techni charo ID = [id number] for JORD AN, LACRYSTAL Prepare [id number] 19:14:00 Test Item Value Reference Range Interpretation Comments Unit ABO (test code = O Pos 0112302) UNIT NUMBER (test code = [id number] 934-0) Status (test code = 3827739) READY Blood Bank Product (test code RED BLOOD CELLS = 2263) PRODUCT CODE (test code = [id number] 933-2) CROSSMATCH (test code = 2264) COMPATIBLE [facility] HospitalType and screen, [id number] 11:36:00 Test Item Value Reference Range Interpretation Comments ABO/RH AUTOMATED (BEAKER) (test O POSITIVE code = 2260) Ab Scrn (test code = 890-4) NEGATIVE [facility] HospitalPlatelet [id number] 11:27:00 Test Item Value Reference Range Interpretation Comments Platelets (test code = 777-3) 112 150- 450 K/CU MM L Lab Interpretation (test code = Abnormal 28495-4) [facility] HospitalPLATELET [id number] 11:27:00 Test Item Value Reference Range Interpretation Comments PLATELET COUNT (BEAKER) (test 112 K/CU MM 150-450 L code = 756) [id number] 11:07:00 Test Item Value Reference Range Interpretation Comments Sodium (test code = 2951-2) 138 meq/L 136-145 Potassium (test code = 2823-3) 4.7 meq/L 3.5-5.1 Chloride (test code = 2075-0) 107 meq/L 98-107 CO2 (test code = 8-9) 26 meq/L 22-29 Lab Interpretation (test code = Normal 58436-5) [facility] HospitalGlucose2019-11-11 11:07:00 Test Item Value Reference Range Interpretation Comments Glucose (test code = 2345-7) 134 mg/dL 70-105 H Lab Interpretation (test code = Abnormal 95984-7) [facility] HospitalBUN and [id number] 11:07:00 Test Item Value Reference Range Interpretation Comments BUN (test code = 26 mg/dL 7-21 H 3094-0) Creatinine (test code = 1.83 mg/dL 0.57-1.25 H 2160-0) EGFR (test code = 33 mL/min/1.73 [place] [address]-6) NOT ACCURATE CREATININE CLEARANCE IN PREDICTING GLOMERULAR FILTRATION RATE . ESTIMATED GFR I S NOT APPLICABLE FOR DIALYSIS PATIEN TS. Lab Interpretation Abnormal (test code = 57754-3) [facility] HospitalELECTROLYTES2019-11-11 11:07:00 Test Item Value Reference Range Interpretation Comments SODIUM (BEAKER) (test code = 381) 138 meq/L 136-145 POTASSIUM (BEAKER) (test code = 4.7 meq/L 3.5-5.1 379) CHLORIDE (BEAKER) (test code = 382) 107 meq/L 98-107 CO2 (BEAKER) (test code = 355) 26 meq/L 22-29 [id number] 11:07:00 Test Item Value Reference Range Interpretation Comments GLUCOSE RANDOM (BEAKER) (test code 134 mg/dL 70-105 H = 652) BUN AND [id number] 11:07:00 Test Item Value Reference Range Interpretation [...] S NOT APPLICABLE FOR DIALYSIS PATIEN TS. [id number] 10:54:00 Test Item Value Reference Range Interpretation Comments Hemoglobin (test code = 786-4) 13.1 11.2- 15.7 GM/DL Lab Interpretation (test code = Normal 00361-6) [facility] HospitalHEMOGLOBIN2019-11-11 10:54:00 Test Item Value Reference Range Interpretation Comments HEMOGLOBIN (BEAKER) (test code = 13.1 GM/DL 11.2-15.7 410) ECG 12 [id number] 12:11:27Interface, External Ris In - 11/27/2018 12:11 PM CDTVentricular Rate 59 BPMAtrial Rate 59 BPMP-R Interval 242 msQRS Duration 120 msQ-T Interval 520 msQTC Calculation(Bazett) 514 msP [place] 72 degreesR [place] 37 degreesT [place] 61 degreesSinus bradycardia with 1st degree A-V blockSeptal infarct , age undeterminedAbnormal ECGConfirmed by MD Alan, Vani ([id number]) on 11/27/2018 12:11:21 [facility] HospitalPET, CARDIAC PERFUSION MULTIPLE STUDIES, REST AND [id number] 16:17:00Reason for Exam:->i73.9, e11.9, i25.10FINAL REPORT PROCEDURE: MYOCARDIAL PERFUSION PET IMAGING (Rest/Stress)CPT CODE: 92399 INDICATION: Known CAD CARDIOVASCULAR PROFILE:CAD History: Known CAD, CHFSymptoms: NoneRisk Factors: CAD, diabetes, hypertension, dyslipidemia, PAD, family history early CADBMI: 42.7Medications: Amiodarone, aspirin, carvedilol, furosemide, Plavix, Crestor, Entresto STRESS PROTOCOL:Pharmacologicstress was achieved with a 10-second intravenous infusion of regadenoson 0.4 mg. The radiopharmaceutical was administered 30 seconds after the start of the regadenoson infusion. IMAGING PROTOCOL:Limited low-dose CT imaging was performed for attenuation correction. 40.1 mCi of Rb-82 chloride was injected intravenously at rest, and gated PET images were obtained. Then, 40.1 mCi of Rb-82 chloride was injected [...] is no prior study for comparison. Signed: Stacy Naidu MDReport Verified Date/Time: 11/26/2018 16:17:24 Reading Location: [place] [id number] Reading Room [facility] myocardial perfusion PET (rest and stress)2018-11-26 16:17:00Interface, External Ris In - 11/26/2018 4:56 PM CDTFINAL REPORT PROCEDURE: MYOCARDIAL PERFUSION PET IMAGING (Rest/Stress)CPT CODE: 22611 INDICATION: Known CAD CARDIOVASCULAR PROFILE:CAD History: Known CAD, CHFSymptoms: NoneRisk Factors: CAD, diabetes, hypertension, dyslipidemia, PAD, family history early CADBMI: 42.7Medications: Amiodarone, aspirin, carvedilol, furosemide, Plavix, Crestor, Entresto STRESS PROTOCOL:Pharmacologic stress was achieved with a 10-second intravenousinfusion of regadenoson 0.4 mg. The radiopharmaceutical was [...] is no prior study for comparison. Signed: Stacy Naidu MDReportVerified Date/Time: 11/26/2018 16:17:24 Reading Location: [address] Reading Room [facility] HospitalAntibody identification 2018-11-04 16:22:00 Test Item Value Reference Range Interpretation Comments ANTIBODY ID (BEAKER) UNID IgG (test code = 2253) Antibody Consult SIGNED OUT An IgG anti body of (test code = 2479) undetermi porfirio specificity is detected, trans fuse crossmatch comp atible RBCs.Electronic Signature: Chuckie Ferro M.D. [facility] HospitalAntibody [id number] 11:45:00 Test Item Value Reference Range Interpretation Comments Ab Scrn (test code = POSITIVE PEG. IS - SC1: 0, SC2: 890-4) 0, SC3: 0. CC - SC1: 3+, SC2: NT, SC3: 3 +. [facility] HospitalABORH, [id number] 10:12:00 Test Item Value Reference Range Interpretation Comments ABO Grouping (test code = 2588) O Rh Factor (test code = 2589) POS [facility] HospitalBASIC METABOLIC [id number] 11:28:00 Test Item Value Reference Range Interpretation [...] PATIEN TS. CBC W/PLT COUNT & AUTO [id number] 11:19:00 Test Item Value Reference Range Interpretation [...] (BEAKER) (test code = 2801) BASIC METABOLIC [id number] 14:13:00 Test Item Value Reference Range Interpretation [...] PATIEN TS. CBC W/PLT COUNT & AUTO [id number] 13:54:00 Test Item Value Reference Range Interpretation [...]
[2019-08-01] MEDS ORDERED: FENTANYL CITR 100 MCG/2 ML ONE (18:53)
[2019-08-01 19:12] LABS: Urine Bacteria <20 /HPF (<20); Urine RBC <5 /HPF (NONE SEEN)
[2019-08-01 19:15] LABS: Urine Culture Reflex Order NOT NEEDED
--- NOTE | 2019-08-01 20:13 | RAD REPORT ---
EXAM DESCRIPTION: CTSpine Lumbar Wo Con08/01/2019 7:44 pm CLINICAL HISTORY: Back injury with back pain and radiculopathy status post fall COMPARISON: 07/15/2019 TECHNIQUE: Computed axial tomography lumbar spine was obtained with coronal and sagittal reconstruct ion. All CT scans are performed using dose optimization technique as appropriate and may include automated exposure control or mA/KV adjustment according to patient size. FINDINGS: No fracture is seen. No dislocation is noted. A mild anterior subluxation L4 on L5 Spondylosis L2-3 results in narrowing of the thecal sac is 6 millimeters Spondylosis L3-4 narrows thecal sac to 3 millimeters Spondylosis L4-5 narrows the thecal sac to 4 millimeters Spondylosis L5-S1 resulting marked narrowing of the right neural foramina IMPRESSION: Negative for a lumbar fracture. Spondylosis resulting in marked central spinal stenosis L3-4 and L4-5
--- NOTE | 2019-08-01 20:21 | RAD REPORT ---
EXAM DESCRIPTION: CT - Pelvis Wo Cont - 08/01/2019 7:44 pm CLINICAL HISTORY: Pelvic pain status post fall COMPARISON: None. TECHNIQUE: Computed axial tomography of the pelvis was obtained. Coronal and sagittal reconstruction performed All CT scans are performed using dose optimization technique as appropriate and may include automated exposure control or mA/KV adjustment according to patient size. FINDINGS: The bones are osteoporotic. No fracture or dislocation is seen. Mild osteoarthritis involves the hips Muscles are normal size and density. A subcutaneous contusion is not noted Subchondral cysts left sacroiliac joint. IMPRESSION: No fracture seen
--- NOTE | 2019-08-01 20:45 | ER ---
Nurse's Notes [facility] Name: Sangita Hendrix Age: 73 yrs Sex: Female : 1945 Arrival Date: 08/01/2019 Time: 17:28 Bed 20 Private MD: Diagnosis: Low back pain;Pain in hip Presentation: 07/31 18:06 Chief complaint: Patient states: Fell and hurt back on the 13 of July. Was seen here ca1 in the ER on the and was sent home with muscle relaxants. Pain continues until now and has gotten worse. Reports low back pain mostly on the L side. Coronavirus screen: Proceed with normal triage. Patient denies a cough. Patient denies shortness of breath or difficulty breathing. Patient denies measured and/or subjective temperature greater than 100.4F prior to today's visit. Patient denies travel on a cruise ship or to a country the [facility] currently lists as an affected area. Patient denies contact with known and/or suspected case of COVID-19. Ebola Screen: Patient negative for fever greater than or equal to 101.5 degrees Fahrenheit, and additional compatible Ebola Virus Disease symptoms Patient denies exposure to infectious person. Patient denies travel to an Ebola-affected area in the 21 days before illness onset. No symptoms or risks identified at this time. Initial Sepsis Screen: Does the patient meet any 2 criteria? No. Patient's initial sepsis screen is negative. Does the patient have a suspected source of infection? No. Patient's initial sepsis screen is negative. Risk Assessment: Do you want to hurt yourself or someone else? Patient reports no desire to harm self or others. Onset of symptoms was August 01, 2019. 18:06 Method Of Arrival: Wheelchair ca1 18:06 Acuity: MADISYN 4 ca1 Triage Assessment: 18:09 General: Appears in no apparent distress. uncomfortable, Behavior is calm, cooperative, ca1 appropriate for age. Pain: Complains of pain in low back area and left low back Pain currently is 10 out of 10 on a pain scale. Aggravated by repositioning, weight bearing. EENT: No signs and/or symptoms were reported regarding the EENT system. Neuro: Level of Consciousness is awake, alert, obeys commands, Oriented to person, place, time, situation. Cardiovascular: Heart tones S1 S2 present Capillary refill < 3 seconds Patient's skin is warm and dry. Respiratory: Airway is patent Respiratory effort is even, unlabored, Respiratory pattern is regular, symmetrical, Breath sounds are clear bilaterally. GI: Abdomen is round non-distended, Bowel sounds present X 4 quads. Abd is soft and non tender X 4 quads. : No signs and/or symptoms were reported regarding the genitourinary system. Derm: Skin is intact, is healthy with good turgor, Skin is pink, warm \T\ dry. Musculoskeletal: Circulation, motion, and sensation intact. Capillary refill < 3 seconds. Historical: - Allergies: 18:09 PENICILLINS; ca1 - PMHx: 18:09 BRADYCARDIA; Diabetes - IDDM; CHF; Gout; Pacemaker; ca1 - Immunization history:: Adult Immunizations up to date. - Social history:: Smoking status: Patient denies any tobacco usage or history of. Screenin:10 Abuse screen: Denies threats or abuse. Denies injuries from another. Nutritional ca1 screening: No deficits noted. Tuberculosis screening: No symptoms or risk factors identified. Fall Risk Fall in past 12 months (25 points). Ambulatory Aid- Crutches/Cane/Walker (15 pts). Total Watson Fall Scale indicates Low Risk Score (25-44 pts). Fall prevention measures have been instituted. Side Rails Up X 2 Family Present and informed to notify staff if they need to leave bedside As available Patient and Family Educated on Fall Prevention Program and strategies. Assessment: 18:10 Reassessment: see triage. ca1 18:51 Reassessment: Patient appears in no apparent distress at this time. Patient and/or ca1 family updated on plan of care and expected duration. Pain level reassessed. Patient is alert, oriented x 3, equal unlabored respirations, skin warm/dry/pink. 19:40 Reassessment: Patient and/or family updated on plan of care and expected duration. Pain mg2 level reassessed. Patient is alert, oriented x 3, equal unlabored respirations, skin warm/dry/pink. patient sent to CT scan via wheelchair. Vital Signs: 18:06 BP 135 / 64; Pulse 66; Resp 15 S; Temp 98.1(O); Pulse Ox 100% on R/A; Weight 86.18 kg ca1 (R); Height 5 ft. 3 in. (160.02 cm) (R); Pain 10/10; 18:51 BP 139 / 57; Pulse 67; Resp 15 S; Pulse Ox 100% on R/A; ca1 19:36 BP 130 / 78; Pulse 69; Resp 18; Pulse Ox 100% on R/A; mg2 20:54 BP 134 / 70; Pulse 70; Resp 18; Pulse Ox 100% on R/A; mg2 18:06 Body Mass Index 33.66 (86.18 kg, 160.02 cm) ca1 ED Course: 17:28 Patient arrived in ED. as 17:56 Sukumar Valdivia PA is PHCP. cp 17:56 Sukumar Correa MD is Attending Physician. cp 18:01 Deepali Calvo RN is Primary Nurse. ca1 18:08 Triage completed. ca1 18:09 Arm band placed on right wrist. ca1 18:10 Patient has correct armband on for positive identification. Bed in low position. Call ca1 light in reach. Side rails up X2. Pulse ox on. NIBP on. Warm blanket given. 18:10 No provider procedures requiring assistance completed. ca1 18:43 Inserted saline lock: 24 gauge in right hand, using aseptic technique. ca1 19:05 Report given to ANAMARIA Brown. ca1 19:44 CT Lumbar Spine Wo Con In Process Unspecified. EDMS 19:45 CT Pelvis wo Cont In Process Unspecified. EDMS 20:55 IV discontinued, intact, bleeding controlled, No redness/swelling at site. Pressure mg2 dressing applied. Administered Medications: 18:47 Drug: fentaNYL (PF) 25 mcg {Note: rass 0.} Route: IVP; Site: right hand; ca1 19:05 Follow up: Response: No adverse reaction; Pain is decreased; RASS: Alert and Calm (0) ca1 20:53 Drug: TORadol - Ketorolac 15 mg Route: IM; Site: right deltoid; mg2 20:54 Follow up: Response: No adverse reaction; Medication administered at discharge. mg2 Outcome: 20:45 Discharge ordered by . cp 21:08 Discharged to home via wheelchair, with family. mg2 21:08 Condition: stable 21:08 Discharge instructions given to patient, family, Instructed on discharge instructions, follow up and referral plans. medication usage, Demonstrated understanding of instructions, follow-up care, medications, Prescriptions given X 1. 21:09 Patient left the ED. mg2 Signatures: Dispatcher [employer] Brigitte Briones Corey, PA PA cp Antonio Hardy, RN RN mg2 Deepali Calvo RN RN ca1
--- NOTE | 2019-08-01 20:45 | EDPHYS ---
Physician Documentation [facility] Name: Sangita Hendrix Age: 73 yrs Sex: Female : 1945 Arrival Date: 08/01/2019 Time: 17:28 Bed 20 Private MD: ED Physician Sukumar Correa HPI: 07/31 18:35 This 73 yrs old Black Female presents to ER via Wheelchair with complaints of Hip Pain. cp 18:35 The patient or guardian reports pain. cp 18:35 The complaints affect the low back area and left hip. Onset: The symptoms/episode cp began/occurred last month, resulted from fall. Patient was seen on 07-15-2019 and xrays were taken. Associated signs and symptoms: Pertinent negatives: abdominal pain, chest pain, dysuria, fever, incontinence, weakness. Severity of symptoms: in the emergency department the symptoms are unchanged, despite home interventions. Historical: - Allergies: 18:09 PENICILLINS; ca1 - PMHx: 18:09 BRADYCARDIA; Diabetes - IDDM; CHF; Gout; Pacemaker; ca1 - Immunization history:: Adult Immunizations up to date. - Social history:: Smoking status: Patient denies any tobacco usage or history of. ROS: 18:45 Back: Positive for pain at rest, pain with movement, of the left low back. cp 18:45 Constitutional: Negative for body aches, chills, fever. cp 18:45 Cardiovascular: Negative for chest pain. 18:45 Respiratory: Negative for cough, shortness of breath, wheezing. 18:45 Abdomen/GI: Negative for abdominal pain, diarrhea, constipation, bowel incontinence. 18:45 : Negative for urinary symptoms, difficulty urinating, bladder incontinence. 18:45 MS/extremity: Positive for pain, tenderness, of the left hip, Negative for decreased range of motion, paresthesias. 18:45 Neuro: Negative for altered mental status, headache, weakness. 18:45 All other systems are negative. Exam: 18:50 Constitutional: The patient appears in no acute distress, alert, awake, non-toxic, well cp developed, well nourished. 18:50 Head/Face: Normocephalic, atraumatic. cp 18:50 Chest/axilla: Inspection: normal. 18:50 Cardiovascular: Rate: normal. 18:50 Respiratory: the patient does not display signs of respiratory distress, Respirations: normal, no use of accessory muscles, labored breathing, is not present. 18:50 Abdomen/GI: Inspection: abdomen appears normal, Palpation: abdomen is soft and non-tender, in all quadrants. 18:50 Back: pain, that is moderate, of the left low back, ROM is painful, with all movement. 18:50 Musculoskeletal/extremity: Joints: All joints are normal except the left hip displays painful range of motion, tenderness. 18:50 Skin: no rash present. 18:50 Neuro: Orientation: to person, place \T\ time. Mentation: is normal, Motor: moves all fours, strength is normal. Vital Signs: 18:06 BP 135 / 64; Pulse 66; Resp 15 S; Temp 98.1(O); Pulse Ox 100% on R/A; Weight 86.18 kg ca1 (R); Height 5 ft. 3 in. (160.02 cm) (R); Pain 10/10; 18:51 BP 139 / 57; Pulse 67; Resp 15 S; Pulse Ox 100% on R/A; ca1 19:36 BP 130 / 78; Pulse 69; Resp 18; Pulse Ox 100% on R/A; mg2 20:54 BP 134 / 70; Pulse 70; Resp 18; Pulse Ox 100% on R/A; mg2 18:06 Body Mass Index 33.66 (86.18 kg, 160.02 cm) ca1 MDM: 17:57 Patient medically screened. ranjan 19:00 Differential diagnosis: hip fracture, intertrochanteric fracture, femoral neck cp fracture, femoral shaft fracture, bursitis, lumbar fracture. 20:45 Data reviewed: vital signs, nurses notes, radiologic studies, CT scan. 20:45 Counseling: I had a detailed discussion with the patient and/or guardian regarding: the historical points, exam findings, and any diagnostic results supporting the discharge/admit diagnosis, radiology results, the need for outpatient follow up, a family practitioner, to return to the emergency department if symptoms worsen or persist or if there are any questions or concerns that arise at home. Response to treatment: the patient's symptoms have markedly improved after treatment. ED course: VSS. Pain improved with meds. CT results negative for acute trauma. Will discharge to home for continued monitoring. 07/31 18:26 Order name: Urine Microscopic Only; Complete Time: 20:25 cp 07/31 20:39 Interpretation: Reviewed. 07/31 18:27 Order name: CT Lumbar Spine Wo Con; Complete Time: 20:25 07/31 18:27 Order name: CT Pelvis wo Cont; Complete Time: 20:25 07/31 20:39 Interpretation: Report reviewed. 07/31 19:15 Order name: Urine Culture [facility] 07/31 20:26 Order name: Urine Dipstick--Ancillary (enter results) ar5 07/31 18:25 Order name: IV; Complete Time: 18:43 07/31 18:26 Order name: Urine Dipstick-Ancillary (obtain specimen); Complete Time: 18:33 cp Administered Medications: 18:47 Drug: fentaNYL (PF) 25 mcg {Note: rass 0.} Route: IVP; Site: right hand; ca1 19:05 Follow up: Response: No adverse reaction; Pain is decreased; RASS: Alert and Calm (0) ca1 20:53 Drug: TORadol - Ketorolac 15 mg Route: IM; Site: right deltoid; mg2 20:54 Follow up: Response: No adverse reaction; Medication administered at discharge. mg2 Disposition: 21:15 Chart complete. 08/01 16:59 Co-signature as Attending Physician, Sukumar Correa MD I agree with the assessment and [facility] plan of care. Disposition: 08/01/19 20:45 Discharged to Home. Impression: Low back pain, Pain in hip. - Condition is Stable. - Discharge Instructions: Back Pain, Adult, Hip Pain. - Prescriptions for Tramadol 50 mg Oral Tablet - take 1 tablet by ORAL route every 8 hours as needed; 20 tablet. - Medication Reconciliation Form, Thank You Letter, Antibiotic Education, Prescription Opioid Use form. - Follow up: Private Physician; When: 2 - 3 days; Reason: Recheck today's complaints. - Problem is an ongoing problem. - Symptoms have improved. Signatures: Dispatcher [employer] Sukumar Velez MD MD cha Page, Corey, PA PA Antonio Hardy, RN RN mg2 Deepali Calvo RN RN ca1 Corrections: (The following items were deleted from the chart) 07/31 19:15 19:15 Urine Culture ordered. [facility] 21:09 20:45 08/01/2019 20:45 Discharged to Home. Impression: Low back pain; Pain in hip. mg2 Condition is Stable. Forms are Medication Reconciliation Form, Thank You Letter, Antibiotic Education, Prescription Opioid Use. Follow up: Private Physician; When: 2 - 3 days; Reason: Recheck today's complaints. Problem is an ongoing problem. Symptoms have improved. cp
[2019-08-01] MEDS ORDERED: KETOROLAC 30 MG/ML INJ ONE (20:56)
[2019-08-01 21:03] LABS: Urine Blood TRACE (NEG); Urine Glucose NEGATIVE (NEG); Urine Specific Gravity 1.015 (1.005-1.030)
[2019-08-01 21:04] LABS: Urine Protein NEGATIVE (NEG); Urine pH 5.5 (5.0-7.0)
[2019-08-01 21:34] VITALS: TEMP 98.1; O2SAT 100
[2019-08-01 21:38] VITALS: BP 134/70
== END 2019-08-01 21:09 | disposition home or self-care (01) ==
LOC: ER 17:26
DX: M25.552 Pain in left hip (principal); M54.5 Low back pain; Z88.0 Allergy status to penicillin; Z91.81 History of falling
CPT/HCPCS: 72131; 72192; 96372; 96374; 99284; J3010; 81003; 81015

== ENCOUNTER 2019-09-29 11:49 | Emergency (ER) | payer OTHER ==
--- OUTSIDE RECORDS SUMMARY | 2019-09-29 12:06 | XMS REPORT | Clinical Summary ---
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, bilateral legs Peripheral artery disease 11/03/2018 PAD (peripheral artery disease) 06/17/2018 Encounters Date Type Specialty Care Team Description 01/10/2019 Travel 01/08/2019 Surgery Ian Doan BYPASS,FEMORAL -PERONEAL 01/08/2019 Anesthesia Event Rita Hair 01/08/2019 - Hospital Encounter Cardiology Ian Doan PAD (per ipheral artery disease) ([facility]); 01/16/2019 Acute post-oper ative pain; Acute blood los s anemia; Ischemic cardio myopathy; Type 2 diabetes mellitus with diabetic peripheral angiopathy without gangrene, with long-term current use of insulin ([facility]); Hyperglycemia 12/29/2018 Hospital Encounter Pre-Admission Ian Doan Testing MD 11/26/2018 Hospital Encounter Radiology Michael Mancia PAD (paul pheral artery disease) ([facility]); MD Pritesh Type 2 diabete s mellitus without complication, unspecified whether retirement insulin use ([facility]); Atherosclerosis of jena coronary artery of jena heart, angina presence unspecified 11/22/2018 Outside Orders Central Scheduling Michael Mancia PAD (pe ripheral artery disease) ([facility]) (Primary Dx); MD Pritesh Type 2 diabete s mellitus without complication, unspecified whether meterman insulin use ([facility]); Atherosclerosis of jena coronary artery of jena heart, angina presence unspecified 11/03/2018 Surgery Ian Doan, PERIPHERAL ANG IOS / AORTOGRAM 11/03/2018 Hospital Encounter Ian Doan MD 10/29/2018 Hospital Encounter Ian Doan PAD (per ipheral artery MD disease) ([facility]) 10/29/2018 Orders Only General Internal Medicine after 09/28/2018 Social History Tobacco Use Types Packs/Day Years [...] Taken Blood Pressure 123/75 01/16/2019 3:00 PM SEO EXPERT Pulse 61 01/16/2019 3:00 PM SEO EXPERT Temperature 36.1 C (97 F) 01/16/2019 3:00 PM SEO EXPERT Respiratory Rate 17 01/16/2019 3:00 PM SEO EXPERT Oxygen Saturation 100% 01/16/2019 3:00 PM SEO EXPERT Inhaled Oxygen Concentration - - Weight 97.8 kg (215 lb 8 oz) 01/16/2019 9:00 A M SEO EXPERT Height 162.6 cm (5' 4") 01/08/2019 5:35 AM SEO EXPERT Body Mass Index 36.99 01/16/2019 9:00 AM SEO EXPERT Plan of Treatment Not on file Implants Implanted Type Area Pocket Creaser Device Shelf Model / Identifier Expiration Serial / Date Lot [employer] N/A: [employer]VASC 09/11/19 21 [id number] / Implanted: Qty: 1 on 06/17/2018 by Ian Doan MD Arterial SURG / [id number] [employer] N/A: [employer] 04/02/19 20 [id number] / Implanted: Qty: 1 on 06/17/2018 by Ian Doan MD Arterial SURG / [id number] Angio Seal Right: TERUMO 02/17/2019 [id number] / Implanted: Qty: 1 on 06/17/2018 by Ian Doan MD Arterial CARDIOVASCULAR / SYSTEMS [id number] Cellerate Activated Collagen Left: Leg WOUND CARE 08/17/2021 [id number] / Implanted: Qty: 1 on 01/08/2019 by Ian Doan MD TVtrip [id number] / Procedures Procedure Name Priority Date/Time Associated Comments Diagnosis RHYTHM STRIP - SCAN 01/20/2019 12:50 PM SEO EXPERT RHYTHM STRIP - SCAN 01/20/2019 12:50 PM SEO EXPERT RHYTHM STRIP - SCAN 01/20/2019 12:42 PM SEO EXPERT POCT-GLUCOSE METER Routine 01/16/2019 11:28 Resul ts for this AM SEO EXPERT procedure are i n the results section. POCT-GLUCOSE METER Routine 01/16/2019 8:16 Resul ts for this AM SEO EXPERT procedure are i n the results section. (CELLAVISION MANUAL Routine 01/16/2019 4:23 Resu lts for this DIFF) AM SEO EXPERT procedure are i n the results section. CBC W/PLT COUNT & Routine 01/16/2019 4:23 Result s for this AUTO DIFFERENTIAL AM SEO EXPERT procedure are in the results section. CBC W/PLT COUNT & Routine 01/16/2019 4:23 Result s for this AUTO DIFFERENTIAL AM SEO EXPERT procedure are in the results section. BASIC METABOLIC PANEL Routine 01/16/2019 4:23 Re sults for this (7) AM SEO EXPERT procedure are i n the results section. POCT-GLUCOSE METER Routine 01/15/2019 8:16 Resul ts for this PM SEO EXPERT procedure are i n the results section. POCT-GLUCOSE METER Routine 01/15/2019 5:00 Resul ts for this PM SEO EXPERT procedure are i n the results section. POCT-GLUCOSE METER Routine 01/15/2019 12:49 Resul ts for this PM SEO EXPERT procedure are i n the results section. POCT-GLUCOSE METER Routine 01/15/2019 8:33 Resul ts for this AM SEO EXPERT procedure are i n the results section. POCT-GLUCOSE METER Routine 01/14/2019 8:56 Resul ts for this PM SEO EXPERT procedure are i n the results section. POCT-GLUCOSE METER Routine 01/14/2019 4:35 Resul ts for this PM SEO EXPERT procedure are i n the results section. POCT-GLUCOSE METER Routine 01/14/2019 12:35 Resul ts for this PM SEO EXPERT procedure are i n the results section. POCT-GLUCOSE METER Routine 01/14/2019 7:41 Resul ts for this AM SEO EXPERT procedure are i n the results section. POCT-GLUCOSE METER Routine 01/13/2019 9:22 Resul ts for this PM SEO EXPERT procedure are i n the results section. POCT-GLUCOSE METER Routine 01/13/2019 4:59 Resul ts for this PM SEO EXPERT procedure are i n the results section. POCT-GLUCOSE METER Routine 01/13/2019 12:32 Resul ts for this PM SEO EXPERT procedure are i n the results section. POCT-GLUCOSE METER Routine 01/13/2019 7:44 Resul ts for this AM SEO EXPERT procedure are i n the results section. CBC W/PLT COUNT & Routine 01/13/2019 5:47 Result s for this AUTO DIFFERENTIAL AM SEO EXPERT procedure are in the results section. CBC W/PLT COUNT & Routine 01/13/2019 5:47 Result s for this AUTO DIFFERENTIAL AM SEO EXPERT procedure are in the results section. BASIC METABOLIC PANEL Routine 01/13/2019 5:47 Re sults for this (7) AM SEO EXPERT procedure are i n the results section. POCT-GLUCOSE METER Routine 01/12/2019 9:24 Resul ts for this PM SEO EXPERT procedure are i n the results section. POCT-GLUCOSE METER Routine 01/12/2019 7:08 Resul ts for this PM SEO EXPERT procedure are i n the results section. POCT-GLUCOSE METER Routine 01/12/2019 5:14 Resul ts for this PM SEO EXPERT procedure are i n the results section. POCT-GLUCOSE METER Routine 01/12/2019 9:19 Resul ts for this AM SEO EXPERT procedure are i n the results section. CBC W/PLT COUNT & Routine 01/12/2019 4:14 Result s for this AUTO DIFFERENTIAL AM SEO EXPERT procedure are in the results section. CBC W/PLT COUNT & Routine 01/12/2019 4:14 Result s for this AUTO DIFFERENTIAL AM SEO EXPERT procedure are in the results section. BASIC METABOLIC PANEL Routine 01/12/2019 4:14 Re sults for this (7) AM SEO EXPERT procedure are i n the results section. POCT-GLUCOSE METER Routine 01/11/2019 8:47 Resul ts for this PM SEO EXPERT procedure are i n the results section. POCT-GLUCOSE METER Routine 01/11/2019 4:56 Resul ts for this PM SEO EXPERT procedure are i n the results section. POCT-GLUCOSE METER Routine 01/11/2019 11:56 Resul ts for this AM SEO EXPERT procedure are i n the results section. POCT-GLUCOSE METER Routine 01/11/2019 9:10 Resul ts for this AM SEO EXPERT procedure are i n the results section. US RENAL COMPLETE Routine 01/11/2019 8:59 Result s for this AM SEO EXPERT procedure are i n the results section. CBC W/PLT COUNT & Routine 01/11/2019 4:15 Result s for this AUTO DIFFERENTIAL AM SEO EXPERT procedure are in the results section. PHOSPHORUS Routine 01/11/2019 4:15 Results for this AM SEO EXPERT procedure are i n the results section. MAGNESIUM Routine 01/11/2019 4:15 Results for this AM SEO EXPERT procedure are i n the results section. CBC W/PLT COUNT & Routine 01/11/2019 4:15 Result s for this AUTO DIFFERENTIAL AM SEO EXPERT procedure are in the results section. BASIC METABOLIC PANEL Routine 01/11/2019 4:15 Re sults for this (7) AM SEO EXPERT procedure are i n the results section. POCT-GLUCOSE METER Routine 01/10/2019 10:14 Resul ts for this PM SEO EXPERT procedure are i n the results section. POCT-GLUCOSE METER Routine 01/10/2019 4:52 Resul ts for this PM SEO EXPERT procedure are i n the results section. CBC W/PLT COUNT & Routine 01/10/2019 2:55 Result s for this AUTO DIFFERENTIAL PM SEO EXPERT procedure are in the results section. PTH, INTACT Routine 01/10/2019 2:55 Results for this PM SEO EXPERT procedure are i n the results section. CBC W/PLT COUNT & Routine 01/10/2019 2:55 Result s for this AUTO DIFFERENTIAL PM SEO EXPERT procedure are in the results section. POCT-GLUCOSE METER Routine 01/10/2019 11:41 Resul ts for this AM SEO EXPERT procedure are i n the results section. POCT-GLUCOSE METER Routine 01/10/2019 9:30 Resul ts for this AM SEO EXPERT procedure are i n the results section. URIC ACID Add-On 01/10/2019 5:04 Results for this AM SEO EXPERT procedure are i n the results section. PHOSPHORUS Routine 01/10/2019 5:04 Results for this AM SEO EXPERT procedure are i n the results section. MAGNESIUM Routine 01/10/2019 5:04 Results for this AM SEO EXPERT procedure are i n the results section. BASIC METABOLIC PANEL Routine 01/10/2019 5:04 Re sults for this (7) AM SEO EXPERT procedure are i n the results section. POCT-GLUCOSE METER Routine 01/09/2019 9:22 Resul ts for this PM SEO EXPERT procedure are i n the results section. POCT-GLUCOSE METER Routine 01/09/2019 5:05 Resul ts for this PM SEO EXPERT procedure are i n the results section. POCT-GLUCOSE METER Routine 01/09/2019 12:06 Resul ts for this PM SEO EXPERT procedure are i n the results section. POCT-GLUCOSE METER Routine 01/09/2019 7:40 Resul ts for this AM SEO EXPERT procedure are i n the results section. PHOSPHORUS Routine 01/09/2019 3:45 Results for this AM SEO EXPERT procedure are i n the results section. MAGNESIUM Routine 01/09/2019 3:45 Results for this AM SEO EXPERT procedure are i n the results section. BASIC METABOLIC PANEL Routine 01/09/2019 3:45 Re sults for this (7) AM SEO EXPERT procedure are i n the results section. CBC W/PLT COUNT & Routine 01/09/2019 3:11 Result s for this AUTO DIFFERENTIAL AM SEO EXPERT procedure are in the results section. CBC W/PLT COUNT & Routine 01/09/2019 3:11 Result s for this AUTO DIFFERENTIAL AM SEO EXPERT procedure are in the results section. TRANSFUSION SERVICE 01/08/2019 5:54 REPORT - SCAN PM SEO EXPERT POCT-GLUCOSE METER Routine 01/08/2019 4:43 Resul ts for this PM SEO EXPERT procedure are i n the results section. CBC W/PLT COUNT & Routine 01/08/2019 4:36 Result s for this AUTO DIFFERENTIAL PM SEO EXPERT procedure are in the results section. CBC W/PLT COUNT & Routine 01/08/2019 4:36 Result s for this AUTO DIFFERENTIAL PM SEO EXPERT procedure are in the results section. PHOSPHORUS Routine 01/08/2019 4:36 Results for this PM SEO EXPERT procedure are i n the results section. MAGNESIUM Routine 01/08/2019 4:36 Results for this PM SEO EXPERT procedure are i n the results section. PT/APTT Routine 01/08/2019 4:36 Results for this PM SEO EXPERT procedure are i n the results section. BASIC METABOLIC PANEL Routine 01/08/2019 4:36 Re sults for this (7) PM SEO EXPERT procedure are i n the results section. POCT-ACT Routine 01/08/2019 1:08 Results for this PM SEO EXPERT procedure are i n the results section. POCT-ACT Routine 01/08/2019 12:08 Results for this PM SEO EXPERT procedure are i n the results section. HARVEST,VEIN 01/08/2019 7:30 PAD (peripheral AM SEO EXPERT artery disease) (HCC) Case Notes 4 HRS PER E-MAIL Special Needs (ICU BED NEEDED) BYPASS,FEMORAL-PERONEAL 01/08/2019 7:30 AM SEO EXPERT PAD (peripheral artery disease) (HCC) Case Notes 4 HRS PER E-MAIL Special Needs (ICU BED NEEDED) CBC W/PLT COUNT & Routine 01/08/2019 6:39 AM Res ults for this AUTO DIFFERENTIAL SEO EXPERT procedure are in the results section. CBC W/PLT COUNT & Routine 01/08/2019 6:39 AM Res ults for this AUTO DIFFERENTIAL SEO EXPERT procedure are in the results section. POCT-GLUCOSE METER Routine 01/08/2019 6:01 AM Re sults for this SEO EXPERT procedure are i n the results section. PREPARE RBC Routine 01/07/2019 7:14 PM Results for this SEO EXPERT procedure are i n the results section. TRANSFUSION SERVICE 12/30/2018 5:55 PM REPORT - SCAN SEO EXPERT TYPE AND SCREEN, Routine 12/29/2018 10:40 AM Resu lts for this AUTOMATED SEO EXPERT procedure are i n the results section. GLUCOSE Routine 12/29/2018 10:40 AM Results for this SEO EXPERT procedure are i n the results section. PLATELET COUNT Routine 12/29/2018 10:40 AM Result s for this SEO EXPERT procedure are i n the results section. BUN AND CREATININE Routine 12/29/2018 10:40 AM Re sults for this W/RATIO SEO EXPERT procedure are i n the results section. ELECTROLYTE PANEL Routine 12/29/2018 10:40 AM Res ults for this SEO EXPERT procedure are i n the results section. HEMOGLOBIN Routine 12/29/2018 10:40 AM Results for this SEO EXPERT procedure are i n the results section. NM CARDIAC PET Routine 11/26/2018 3:00 PM PAD (peripheral Res ults for this PERFUSION REST AND/OR CDT artery disease) pro cedure are in STRESS (HCC) the results Type 2 diabetes section. mellitus without complication, unspecified whether retirement insulin use (HCC) Atherosclerosis of jena coronary artery of jena heart, angina presence unspecified TREADMILL Routine 11/26/2018 [...] 520 ms QTC Calculation(Bazett) 514 ms P [place] 72 degrees R [place] 37 degrees T [place] 61 degrees Sinus bradycardia with 1st d [...] 500 ms QTC Calculation(Bazett) 511 ms P [place] 70 degrees R [place] 29 degrees T [place] 13 degrees Normal sinus rhythm Septal infarct (cited on or before 28-MAY-2018) Prolonged QT Abnormal ECG When compared with ECG of 13:21, No significant change was fo und ECG 12-LEAD Routine 10/29/2018 10:34 AM CDT Resu lts for this procedure are in the results section . after 09/28/2018 Results RHYTHM STRIP - SCAN (01/20/2019 12:50 PM SEO EXPERT)Only the most recent of3 results within the time period is included. Narrative Performed At This result has an attachment that is no t available. POC-Glucose meter (01/16/2019 11:28 AM SEO EXPERT)Only the most recent of32 results within the time period is included. POC-Glucose Meter 100Comment: : TESTED AT 70 - 110 mg/dL [facility] [address] [facility], [id number]: Technical Clerk/Jira Developer ID = [id number] for BOZENA MONIQUE Specimen Blood Performing Organization Address City/State/Zipcode Phone Number [facility] [address] [place] [address] CENTER Manual Differential (01/16/2019 4:23 AM SEO EXPERT) % Neutros 59 % [facility] % Lymphs 25 % [facility] % Monos 9 % [facility] % Eos 1 % [facility] % Myelo 1 (H) 0 - 0 % [facility] % Bands 4 0 - 10 % [facility] # Neutros 3.89 1.56 - 6.13 K/ul [facility] # Lymphs 1.65 1.18 - 3.74 K/ul [facility] # Monos 0.59 (H) 0.24 - 0.36 K/uL [facility] # Eos 0.07 0.04 - 0.36 K/uL [facility] # Myelo 0.07 (H) 0.00 - 0.00 K/uL [facility] # Bands 0.26 0.00 - 0.80 K/uL [facility] Total Counted 100 [facility] Platelet Morphology Normal [facility] Hypersegmented Neutrophils Present [facility] Hypochromia 1+ few [facility] An[facility]ocytosis 1+ few [facility] Macrocytes 1+ few [facility] Artifact Present [facility] Platelet Conc Adequate [facility] Specimen Blood Narrative Performed At Received comment: [facility] User comments: Slide comments: Performing Organization Address [facility]/Zipcode Phone Number [facility] [address] [place] [address] [place] CBC with platelet count + automated diff (01/16/2019 4:23 AM SEO EXPERT)Only the most recent of9 resultswithin the time period is included. WBC 6.6 3.5 - 10.5 K/L [facility] RBC 2.77 (L) 3.93 - 5.22 M/L [facility] Hemoglobin 8.2 (L) 11.2 - 15.7 GM/DL [facility] Hematocrit 26.6 (L) 34.1 - 44.9 % [facility] MCV 96.0 (H) 79.4 - 94.8 fL [facility] MCH 29.6 25.6 - 32.2 pg [facility] MCHC 30.8 (L) 32.2 - 35.5 GM/DL [facility] RDW 14.9 (H) 11.7 - 14.4 % [facility] Platelets 202 150 - 450 K/CU MM [facility] MPV 11.4 9.4 - 12.3 fL [facility] nRBC 0 0 - 0 /100 WBC [facility] Specimen Blood Performing Organization Address City/[facility]/Zipcode Phone Number [facility] [address] [place] [address] [place] Basic Metabolic Panel (01/16/2019 4:23 AM SEO EXPERT)Only the most recent of8 results within the time period is included. Sodium 142 136 - 145 meq/L [facility] Potassium 4.0 3.5 - 5.1 meq/L [facility] Chloride 112 (H) 98 - 107 meq/L [facility] CO2 25 22 - 29 meq/L [facility] BUN 13 7 - 21 mg/dL [facility] Creatinine 1.28 (H) 0.57 - 1.25 mg/dL [facility] Glucose 89 70 - 105 mg/dL [facility] Calcium 8.9 8.4 - 10.2 mg/dL [facility] EGFR 50Comment: ESTIMATED GFR IS mL/min/1.73 sq m [facility] NOT ACCURATE CREATININE [facility] CLEARANCE IN PREDICTING GLOMERULAR FILTRATION RATE. ESTIMATED GFR IS NOT APPLICABLE FOR DIALYSIS PATIENTS. Specimen Blood Performing Organization Address City/State/Zipcode Phone Number [facility] [address] [place] [address] CENTER US renal complete (01/11/2019 8:59 AM SEO EXPERT) Specimen Narrative Performed At FINAL REPORT [employer] TECHNIQUE: Grayscale ultrasound of the k idneys [...] MD Report Verified Date/Time:01/11/2019 10:37:05 Reading Location: [facility] B1 C013Y CT Body R [facility] Room Procedure Note Interface, External Ris In - 01/11/2019 10:39 AM SEO EXPERT FINAL REPORT TECHNIQUE: Grayscale ultrasound of the [...] Verified Date/Time: 01/11/2019 1 0:37:05 Reading Location: [facility] C013Y CT Body R eading Room Performing Organization Address City/State/Zipcode Phone Number RIS Phosphorus (01/11/2019 4:15 AM SEO EXPERT)Only the most recent of4 resultswithin the time period is included. Phosphorus 2.8 2.3 - 4.7 mg/dL [facility] Specimen Blood Performing Organization Address City/[facility]/Zipcode Phone Number [address] [address] CENTER Magnesium (01/11/2019 4:15 AM SEO EXPERT)Only the most recent of4 resultswithin the time period is included. Magnesium 1.9 1.6 - 2.6 mg/dL [facility] Specimen Blood Performing Organization Address City/[facility]/Zipcode Phone Number [address] [address] [place] PTH, intact (01/10/2019 2:55 PM SEO EXPERT) PTH 200.6 (H) 8.5 - 72.5 pg/mL [facility] Specimen Blood Performing Organization Address [facility]/Zipcode Phone Number [address] [address] CENTER Uric acid (01/10/2019 5:04 AM SEO EXPERT) Uric Acid 7.3 (H) 2.6 - 7.2 mg/dL [facility] Specimen Blood Performing Organization Address City/[facility]/Zipcode Phone Number [address] [address] [place] TRANSFUSION SERVICE REPORT - SCAN (01/08/2019 5:54 PM SEO EXPERT)Only the most recent of4 resultswithin the time period is included. Narrative Performed At This result has an attachment that is no t available. PT/aPTT (01/08/2019 4:36 PM SEO EXPERT) Protime 15.7 (H) 11.9 - 14.2 seconds [facility] INR 1.3 <=5.9 [facility] PTT 34.4 22.5 - 36.0 seconds [facility] Specimen Blood Narrative Performed At Effective 07/16/2018: PT Reference Range [facility] Change New: 11.9-14.2Previous: 11.7-14.7 RECOMMENDED COUMADIN/WARFARIN INR THERAPY RANGES STANDARD DOSE: 2.0-3.0Includes: PROPHYLAXIS for venous thrombosis, systemic embolization; TREATMENT for venous thrombosis and/or pulmonary embolus. HIGH RISK: Target INR is 2.5-3.5 for patients wiht mechanical heart valves. Performing Organization Address [facility] Phone Number [address] [address] [place] POC ACTIVATED CLOTTING TIME (01/08/2019 1:08 PM SEO EXPERT)Only the most recent of2 resultswithin the time period is included. Activated Clotting Time 274Comment: Reference sec [facility] Range: 74-137 seconds, MEDICAL CENTER Baseline/TESTED AT [address] [address] Specimen Blood Performing Organization Address [facility]/Zipcode Phone Number [address] [address] [place] Prepare RBC (01/07/2019 7:14 PM SEO EXPERT) Unit ABO O Pos SAFETRACE TX UNIT NUMBER [id number] SAFETRACE TX Status READY SAFETRACE TX Blood Bank Product RED BLOOD CELLS SAFETRACE TX PRODUCT CODE [id number] SAFETRACE TX Unit ABO O Pos SAFETRACE TX UNIT NUMBER [id number] SAFETRACE TX Status READY SAFETRACE TX Blood Bank Product RED BLOOD CELLS SAFETRACE TX PRODUCT CODE [id number] SAFETRACE TX CROSSMATCH COMPATIBLE SAFETRACE TX CROSSMATCH COMPATIBLE SAFETRACE TX Performing Organization Address [facility]/[place] Phone Number SAFETRACE TX Type and screen, automated (12/29/2018 10:40 AM SEO EXPERT)Only the most recent of2 resultswithin the time period is included. ABO/RH AUTOMATED (BEAKER) O POSITIVE [facility] Ab Scrn NEGATIVE [facility] Specimen Blood Performing Organization Address [facility]/[place] Phone Number [address] [address] BUN and Creatinine (12/29/2018 10:40 AM SEO EXPERT) BUN 26 (H) 7 - 21 mg/dL [facility] Creatinine 1.83 (H) 0.57 - 1.25 mg/dL [facility] EGFR 33Comment: ESTIMATED GFR IS mL/min/1.73 sq m [facility] NOT ACCURATE CREATININE [facility] CLEARANCE IN PREDICTING GLOMERULAR FILTRATION RATE. ESTIMATED GFR IS NOT APPLICABLE FOR DIALYSIS PATIENTS. Specimen Blood Performing Organization Address [facility]/[place] Phone Number [address] [address] CENTER Platelet count (12/29/2018 10:40 AM SEO EXPERT) Platelets 112 (L) 150 - 450 K/CU MM [facility] Specimen Blood Performing Organization Address [facility] Phone Number [address] [address] [place] Hemoglobin (12/29/2018 10:40 AM SEO EXPERT) Hemoglobin 13.1 11.2 - 15.7 GM/DL [facility] Specimen Blood Performing Organization Address City/State/Zipcode Phone Number [address] [address] [place] Glucose (12/29/2018 10:40 AM SEO EXPERT) Glucose 134 (H) 70 - 105 mg/dL [facility] Specimen Blood Performing Organization Address City/[facility]/Zipcode Phone Number [address] [address] [place] Electrolytes (12/29/2018 10:40 AM SEO EXPERT) Sodium 138 136 - 145 meq/L [facility] Potassium 4.7 3.5 - 5.1 meq/L [facility] Chloride 107 98 - 107 meq/L [facility] CO2 26 22 - 29 meq/L [facility] Specimen Blood Performing Organization Address City/[facility]/Zipcode Phone Number [address] [address] [place] myocardial perfusion PET (rest and stress) (11/26/2018 3:00 PM CDT) Specimen Narrative Performed At FINAL REPORT [employer] PROCEDURE: MYOCARDIAL PERFUSION PET IMAG ING (Rest/Stress) CPT CODE: [id number] INDICATION: Known CAD CARDIOVASCULAR PROFILE: CAD History: [...] MD Report Verified Date/Time:11/26/2018 16:17:24 Reading Location: [address] Med Reading Room Procedure Note Interface, External Ris In - 11/26/2018 4:56 PM CDT FINAL REPORT PROCEDURE: MYOCARDIAL PERFUSION PET IMAG ING (Rest/Stress) CPT CODE: [id number] INDICATION: Known CAD CARDIOVASCULAR PROFILE: CAD History: [...] prior study for compariso n. Signed: Darrell Niadu MD Report Verified Date/Time: 11/26/2018 1 6:17:24 Reading Location: [address] Reading Room Performing Organization Address City/State/Zipcode [...] External Ris In - 01/12/2019 12:40 PM SEO EXPERT Protocol Name Regadenoson Time In Exercise Phase [...] on 01/12/2019 12:40:38 PM Performing Organization Address City/State[facility] Phone Number [facility] ECG 12 lead (11/26/2018 2:30 PM CDT)Only the most recent of2 resultswithin the time period is included. Specimen Narrative Performed At Ventricular Rate 59 BPM GE MUSE Atrial Rate 59 BPM P-R Interval 242 ms QRS Duration 120 ms Q-T Interval 520 ms QTC Calculation(Bazett) 514 ms P [place] 72 degrees R [place] 37 degrees T [place] 61 degrees Sinus bradycardia with 1st degree [...] 520 ms QTC Calculation(Bazett) 514 ms P [place] 72 degrees R [place] 37 degrees T [place] 61 degrees Sinus bradycardia with 1st degree A-V bl ock Septal infarct , age undetermined Abnormal ECG Confirmed by MD Phillips Mahboob ([id number]) on 11/27/2018 12:11:21 PM Performing Organization Address City/State/Zipcode Phone Number [facility] CARDIAC CATH REPORT - SCAN (11/05/2018 11:22 [...] (11/03/2018 9:02 AM CDT) ABO Grouping O [facility] Rh Factor POS [facility] Specimen Blood Performing Organization Address [facility]/Zipcode Phone Number [facility] [address] [place] [address] Antibody screen (11/03/2018 8:26 AM CDT) Ab Scrn POSITIVEComment: PEG. IS - SC1: [facility] 0, SC2: 0, SC3: 0. CC - SC1: [address] 3+, SC2: NT, SC3: 3+. Specimen Blood Performing Organization Address [facility] Phone Number [address] [phone] after 09/28/2018 Insurance Payer Benefit Plan / Group Subscriber ID Type Phone A ddress HU[employer] - MEDICARE MGD HU[employer]NA MEDICARE ADV xxxxxxxxx Maps Contracted CARE Advance Directives For more information, please contact:[address] [phone] Code Status Date Activated Date Inactivated Comments [...]
--- OUTSIDE RECORDS SUMMARY | 2019-09-29 12:07 | XMS REPORT | Summary of Care ---
:1945 Author Organization [facility] [place] [address] Care Team Providers Name Role Phone MD Joyce Primary Care Provider Reason for Visit Reason Comments Follow Up Encounter Details Date Type Department Care Team Description 08/26/2019 Office Visit [facility] Ian Doan MD Follow Up Vascular Surgery [address] [place] [address] [address], [address] [place] [address] [place] [address] [phone] Allergies No Known Allergiesdocumented as of this encounter (statuses as of 08/31/2019) Medications Medication Sig Dispensed Refills Start End Date Status Date amiodarone TK 1 T PO QD 3 Active (PACERONE) 200 MG 9 tablet carvedilol TK 1 T PO BID WF 1 Ac tive (COREG) 6.25 MG 9 tablet memantine TK 1 T PO BID 5 Active (NAMENDA) 10 MG 9 tablet ENTRESTO 24-26 MG TK 1 T PO Q 12 H 6 Active TABS 9 acetaminophen-cod TK 1 T PO QD. 0 Active eine (TYLENOL #3) 9 300-30 MG per tablet LANTUS 100 INJECT 20 UNITS 0 Act niya UNIT/ML injection SUBCUTANEOUSLY D. 9 potassium TK 1 T PO QAM 3 Active chloride SA 9 (K-DUR, KLOR-CON M20) 20 MEQ tablet rosuvastatin 0 Active (CRESTOR) 20 MG 9 tablet BABY ASPIRIN OR Take by mouth 0 Active daily. acetaminophen 325 Take 650 mg by 0 0 Active mg tablet mouth. 9 20 gabapentin TAKE 1 CAPSULE BY 90 Cap 1 A ctive (NEURONTIN) 300 MOUTH THREE TIMES 0 MG capsule DAILY VITAMIN E OR Take by mouth. 0 A ctive Ascorbic Acid Take by mouth. 0 Active (VITAMIN C OR) clopidogrel Take 1 Tab by 30 Tab 2 11/24/19 Acti ve (PLAVIX) 75 MG mouth daily for 90 0 20 Tablet days. clopidogrel Take 1 Tab by 30 Tab 2 08/26/19 Disc ontinued (PLAVIX) 75 MG mouth daily for 90 0 20 (Reorder) Tablet days. 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 PAD (peripheral artery disease) (HCCode) 07/02/2018 Essential hypertension 07/02/2018 Pacemaker 02/19/2012 Overview: [facility] MDT [id number] Dr Gonzalez CAD (coronary artery disease) 02/18/2009 Overview: Non obstructive as per cath 2009 Cardiomyopathy, ischemic 02/18/2009 Overview: reported EF in the range 15% as of 2014 by TTE Type 2 [facility] Hypertension Hyperlipidemia P[facility]ipheral artery disease) [facility] Overview: LEFT sp SFA stent occluded, occluded PT and Peroneal , patent AT documented as of this encounter (statuses as of 08/31/2019) Social History Tobacco Use Types Packs/Day Years Used Date Never Smoker Smokeless Tobacco: Never Used Alcohol Use Drinks/Week oz/Week Comments Not Currently Sex Assigned at Date Recorded Not on file Job Start Date Occupation Industry Not on file Not on file Not on file Travel History Travel Start Travel End No recent travel history available. COVID-19 Exposure Response Date Recorded In the last month, have you been in contact with No / Unsure 08/26/2019 9:31 AM CDT someone who was confirmed or suspected to have Coronavirus / COVID-19? documented as of this encounter Last Filed Vital Signs Vital Sign Reading Time Taken Comments Blood Pressure 164/89 08/26/2019 11:05 AM CDT Pulse 65 08/26/2019 11:05 AM CDT Temperature - - Respiratory Rate - - Oxygen Saturation - - Inhaled Oxygen Concentration - - Weight 81.6 kg (180 lb) 08/26/2019 11:05 AM CDT Height 162.6 cm (5' 4") 08/26/2019 11:05 AM CDT Body Mass Index 30.9 08/26/2019 11:05 AM CDT documented in this encounter Patient Instructions Patient InstructionsCamilo Elizabeth CMA - 08/26/2019 1:35 PM CDTThank you for choosing [facility]. You may receive a survey in the mail. Please provide comments to let us know how we can improve our patient care. Instructions for your care: Will discuss further treatment with provider Ian Doan MD [facility] medical records specialist Division of Vascular Surgery and Endovascular Therapy If you have any questions, please feel free to call us at: documented in this encounter Progress Notes Jonathan Durbin NP - 08/26/2019 11:15 AM CDT [facility] [address] [place] [address] [address], [place]. [address] Office: [phone] DATE OF VISIT: May 27, 2019 PATIENT NAME: Sangita Hendrix : 1945 PCP / REFERRING PHYSICIAN: Nam Cook / Khloe YOON DR [facility] [id number] The patient presents today for a Vascular Surgery Established Patient Visit. The patient presents today for a Vascular Surgery surveillance visit, who is status post L SFA-AT BPG, which was performed on 01/16/[address] [facility] by Dr. Doan. The patient states she has been feeling overall well with complaints of aching pain to LLE which is present at all times and localized specifically to her leg and and foot. She does not report of any new wounds and no specific rest pain symptoms. Her pain is controlled with gabapentin and has also been taking tylenol #3 for the pain. Furthermore, the daughter does state that she has had suffered a few falls since her last visit. The patient does not report of any specific symptoms when she has fallen and the daughter reports that the falls are not mechanical innature. Currently for anticoagulation she is on aspirin and plavix. VITAL SIGNS: BP 164/89 | Pulse 65 | Ht 5' 4" (1.626 m) | [...] of infection. Vascular Ultrasound Study performed on August 26, 2019: Assessment & Plan: 73 yo F with PAD - - Continue with aspirin and plavix - Recommend daily exercise regimen with 30 minutes of aerobic activity (i.e., walking or bicycling) to improve lower leg arterial circulation. -Return to vascular clinic in 3 month(s) with follow-up arterial duplex ultrasound of left lower extremity. - Follow up with PCP to evaluate cause of recent falls [facility] Department of Surgery Division of Vascular Surgery documented in this encounter Plan of Treatment Date Type Specialty Care Team Description 12/02/2019 Office Visit Vascular Surgery Ian Doan M D [address] [address] [phone] Health Maintenance Due Date Last Done Comments COLON CANCER SCREENING: COLONOSCOPY 1945 MAMMOGRAM ANNUAL 1945 TETANUS SHOT (ADULT) 1961 ANNUAL DIABETIC FOOT EXAM 1964 ANNUAL DIABETIC RETINOPATHY SCREENING 1964 HEPATITIS C SCREENING 1964 FALL SCREEN 09/12/2011 OSTEOPOROSIS SCREENING 09/12/2011 MEDICARE AWV (Initial) 02/18/2018 FLU VACCINE > 6 MONTHS 09/19/2019 BMI FOLLOW UP PLAN 05/26/2020 05/27/2019 PNEUMOVAX >=65 (PPSV23) Completed 06/01/2016 documented as of this encounter Results Not on filedocumented in this encounter Visit Diagnoses Diagnosis PAD (peripheral artery disease) (HCCode) - Primary Unspecified disorders of arteries and ar terioles documented in this encounter Insurance Payer Benefit Plan / Subscriber ID Effective Phone Address T ype Group Dates HUMANA ERS MEDICARE xxxxxxxxx 2018-Prese [address] Medicare [place] [address] documented as of this encounter
--- OUTSIDE RECORDS SUMMARY | 2019-09-29 12:07 | XMS REPORT | Continuity of Care Document ---
:1945 Author Organization [facility] t Address [address] [place] [address] Care Team Providers Name Role Phone Martin Cook Primary Care Physician Unavailable Franki VILLAGOMEZ Attending Clinician Franki VILLAGOMEZ Attending Clinician Erlinda aHir Attending Clinician Unavailable FRANKI Attending Clinician Unavailable Pritesh Mancia MD Attending Clinician Gavino VILLAGOMEZ Attending Clinician FRANKI Admitting Clinician Unavailable Payers Payer Name Policy Type Policy Number Effective Date Expiration Source Date HUMANA - MEDICARE MGD xxxxxxxxx [facility] Problems Condition Condition Condition Status Onset Resolution Last Treating Co mments Source Name Details Category Date Date Treatment Clinician Date 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 [place] Vital Signs Vital Name Observation Time Observation Value Comments Source Systolic blood 2019-01-16 15:00:00 123 mm[Hg] [facility] Diastolic blood 2019-01-16 15:00:00 75 mm[Hg] [facility] S [facility] Heart rate 2019-01-16 15:00:00 61 /min [facility] Body temperature 2019-01-16 15:00:00 36.11 Michela [facility] Respiratory rate 2019-01-16 15:00:00 17 /min [facility] Oxygen saturation in 2019-01-16 15:00:00 100 /min [facility] Arterial blood by Medical Ce nter Pulse oximetry Body weight Measured 2019-01-16 09:00:00 97.75 kg [facility] BMI 2019-01-16 09:00:00 36.99 kg/m2 [facility] Body height 2019-01-08 05:35:00 162.6 cm [facility] Procedures Procedure Date / Time Performing Clinician Source Performed RHYTHM STRIP - SCAN 2019-01-20 12:50:46 Provider, Default [facility] Scanning [facility] RHYTHM STRIP - SCAN 2019-01-20 12:50:22 Provider, [facility] RHYTHM STRIP - SCAN 2019-01-20 12:42:24 Provider, [facility] POCT-GLUCOSE METER 2019-01-16 11:28:00 [facility] 2019-01-16 08:16:00 [facility] BASIC [facility]OLIC PANEL (7) 2019-01-16 04:23:00 Richie Manley [facility] CBC W/PLT COUNT & AUTO 2019-01-16 04:23:00 Vineet [facility] (CELLAVISION MANUAL DIFF) 2019-01-16 04:23:00 Richie Manley [facility] POCT-GLUCOSE METER 2019-01-15 20:16:00 [facility] 2019-01-15 17:00:00 Franki [facility] [place] POCT-GLUCOSE METER 2019-01-15 12:49:00 Franki [place] POCT-GLUCOSE METER 2019-01-15 08:33:00 [facility]SE [facility]ER 2019-01-14 20:56:00 [facility] POCT-GLUCOSE METER 2019-01-14 16:35:00 [facility] POCT-[facility]SE METER 2019-01-14 12:35:00 [facility] POCT-GLUCOSE METER 2019-01-14 07:41:00 Franki [place] POCT-GLUCOSE METER 2019-01-13 21:22:00 Franki [place] POCT-GLUCOSE METER 2019-01-13 16:59:00 [facility]SE [facility]ER 2019-01-13 12:32:00 [facility] POCT-GLUCOSE METER 2019-01-13 07:44:00 [facility] BASIC METABOLIC PANEL (7) 2019-01-13 05:47:00 Richie Manley [facility] CBC W/PLT COUNT & AUTO 2019-01-13 05:47:00 Vineet [facility] POCT-GLUCOSE METER 2019-01-12 21:24:00 [facility] POCT-[facility]UCOSE METER 2019-01-12 19:08:00 [facility] POCT-GLUCOSE METER 2019-01-12 17:14:00 [facility] POCT-GLUCOSE METER 2019-01-12 09:19:00 [facility] BASIC METABOLIC PANEL (7) 2019-01-12 04:14:00 Richie Manley [facility] CBC W/PLT COUNT & AUTO 2019-01-12 04:14:00 Vineet [facility] POCT-GLUCOSE METER 2019-01-11 20:47:00 [facility] POCT-GLUCOSE METER 2019-01-11 16:56:00 [facility] POCT-GLUCOSE METER 2019-01-11 11:56:00 [facility] PO[facility]SE METER 2019-01-11 09:10:00 [facility] US RENAL COMPLETE 2019-01-11 08:59:[address] [facility] BASIC METABOLIC PANEL (7) 2019-01-11 04:15:00 Argilanavamarie Yesi dominguez [facility] MAGNESIUM 2019-01-11 04:15:00 Patrick Raman [facility] PHOSPHORUS 2019-01-11 04:15:[address] [facility] CBC W/PLT COUNT & AUTO 2019-01-11 04:15:00 Patrick [facility] POCT-GLUCOSE METER 2019-01-10 22:14:00 [facility] POCT-GLUCOSE METER 2019-01-10 16:52:00 Franki [place] PTH, INTACT 2019-01-10 14:55:00 Darren [facility] CBC W/PLT COUNT & AUTO 2019-01-10 14:55:00 [facility] POCT-GLUCOSE METER 2019-01-10 11:41:00 Franki [place] POCT-GLUCOSE METER 2019-01-10 09:30:00 Franki [place] BASIC METABOLIC PANEL (7) 2019-01-10 05:04:00 Patrick Yesi [facility] MAGNESIUM 2019-01-10 05:04:[address] [facility] PHOSPHORUS 2019-01-10 05:04:00 [facility]IC [facility]ID 2019-01-10 05:04:00 Darren [facility] POCT-GLUCOSE METER 2019-01-09 21:22:00 Franki [place] POCT-GLUCOSE METER 2019-01-09 17:05:00 [facility] POCT-GLUCOSE METER 2019-01-09 12:06:00 Franki [place] POCT-GLUCOSE METER 2019-01-09 07:40:00 Franki [place] BASIC METABOLIC PANEL (7) 2019-01-09 03:45:00 Patrick Yesi [facility] MAGNESIUM 2019-01-09 03:45:00 [facility] 2019-01-09 03:45:00 [facility] CBC W/PLT COUNT & AUTO 2019-01-09 03:11:00 Manisundbeth, [facility] TRANSFUSION SERVICE REPORT 2019-01-08 17:54:33 Provider, Carly [facility] POCT-GLUCOSE METER 2019-01-08 16:43:00 Franki [place] BASIC METABOLIC PANEL (7) 2019-01-08 16:36:00 Endy Alexis [facility] PT/APTT 2019-01-08 16:36:00 Endy Alexis [facility] MAGNESIUM 2019-01-08 16:36:[address] [facility] PHOSPHORUS 2019-01-08 16:36:[address] [facility] CBC W/PLT COUNT & AUTO 2019-01-08 16:36:00 [facility] POCT-ACT 2019-01-08 13:08:00 Franki [facility] POCT-ACT 2019-01-08 12:08:00 Franki [facility] BYPASS,FEMORAL-PERONEAL 2019-01-08 07:30:00 Franki [facility] HARVEST,VEIN 2019-01-08 07:30:00 [facility] CBC W/PLT COUNT & AUTO 2019-01-08 06:39:00 Franki mauri [facility] POCT-GLUCOSE METER 2019-01-08 06:01:00 Franki [place] PREPARE RBC 2019-01-07 19:14:00 Franki [facility] TRANSFUSION SERVICE REPORT 2018-12-30 17:55:33 Provider, Carly [facility] HEMOGLOBIN 2018-12-29 10:40:00 Buddy Garcia [facility] ELECTROLYTE PANEL 2018-12-29 10:40:00 Buddy Garcia [facility] BUN AND CREATININE W/RATIO 2018-12-29 10:40:00 Buddy Garcia [facility] PLATELET COUNT 2018-12-29 10:40:00 Buddy Garcia [facility] GLUCOSE 2018-12-29 10:40:00 Buddy Garcia [facility] TYPE AND SCREEN, AUTOMATED 2018-12-29 10:40:00 Buddy Garcia [facility] NM CARDIAC PET PERFUSION 2018-11-26 15:00:00 Michael Mancia o [facility] - REST AND/OR STRESS Medical Cente r TREADMILL 2018-11-26 14:31:41 Unknown, Hl7 [facility] - TOLERANCE(NON-NUCLEAR Medical Ce nter TREADMILL) ECG 12-LEAD 2018-11-26 14:30:31 Unknown, 7 [facility] TRANSFUSION SERVICE REPORT 2018-11-05 18:03:41 Provider, [facility] - - [facility] CARDIAC CATH REPORT - SCAN 2018-11-05 11:22:00 Provider, [facility] TRANSFUSION SERVICE REPORT 2018-11-04 18:03:03 Provider, Default [facility] ANTIBODY IDENTIFICATION 2018-11-04 16:22:00 Ian Doan [facility] PERIPHERAL ANGIOS / 2018-11-03 10:08:00 Ian Doan [facility] AORTOGRAM [facility] ABORH, MANUAL 2018-11-03 09:02:00 Nikki Araujo [facility] TYPE AND SCREEN, AUTOMATED 2018-11-03 08:26:00 Kellie Law [facility] ANTIBODY SCREEN 2018-11-03 08:26:00 Kellie Law [facility] BASIC METABOLIC PANEL (7) 2018-10-29 11:04:00 Ian Doan [facility] CBC W/PLT COUNT & AUTO 2018-10-29 11:04:00 Ian Doan [facility] ECG 12-LEAD 2018-10-29 10:34:21 Unknown, Hl[facility] Encounters Start End Encounter Admission Attending Care Care Encounter Source Date/Time Date/Time Type Type Clinicians Facility Department ID 2019-08-26 2019-08-26 Office KWAME Doan [id number] 09:32:20 11:46:44 Visit Jayer AMBULATOR 350.1.13.21 Y 0.2.7.2.686 [id number] 2019-05-27 2019-05-27 Office KWAME Doan [id number] 09:13:18 12:39:17 Visit Audieyer AMBULATOR 350.1.13.21 Y 0.2.7.2.686 [id number] 2019-03-18 2019-03-18 Office KWAME Doan [id number] 08:40:49 09:39:44 Visit Audieyer AMBULATOR 350.1.13.21 Y 0.2.7.2.686 [id number] 2019-03-04 2019-03-04 Office KWAME Doan [id number] 09:20:10 11:54:55 Visit Jayer AMBULATOR 350.1.13.21 Y 0.2.7.2.686 [id number] 2018-11-17 2018-11-17 Office Michael Mancia [id number] 15:58:42 16:43:42 Visit AMBULATOR 350.1.13.21 Y 0.2.7.2.686 [id number] Results Test Description Test Time Test Comments Results Result Comments Source POC-Glucose meter 2019-01-16 11:39:00 Test Item Value Reference Range Interpretation Comme nts POC-Glucose Meter (test code = 100 mg/dL 70-110 : TESTED AT [facility] [address] [facility] 1538) [facility], 770 30: Private Eye/Techni charo ID = [id number] for BOZENA MONIQUE Lab Interpretation (test code = Normal 70645-1) [facility] [id number] 11:39:00 Test Item Value Reference Range Interpretation Comments POC-GLUCOSE METER 100 mg/dL 70-110 : TESTED A T [facility] [address] (BEFLORIN) (test code = JOSE G James [facility], 1538) [address]: Private Eye/Techni charo ID = [id number] for BOZENA GEORGE CBC with platelet count + automated [id number] 10:30:00 Test Item Value Reference Range Interpretation [...] 450 K/CU MM MPV (test code = 53122-3) 11.4 fL 9.4-12.3 nRBC (test code = 413) 0 0- 0 /100 WBC Lab Interpretation (test code = Abnormal 87090-9) [facility] [id number] 10:30:00 Test Item Value Reference Range Interpretation [...] comments: Lab Interpretation (test Abnormal code = 61661-0) [facility] W/PLT COUNT & AUTO [id number] 10:30:00 Test Item Value Reference Range Interpretation [...] 486) HYPERSEGMENTATION Present (CELLAVISION)(BEAKER) (test code = 8355) HYPOCHROMIA (BEAKER) (test code = 1+ few 963) ANISOCYTOSIS (BEAKER) (test code = 1+ few 961) MACROCYTES (BEAKER) (test code = 1+ few 964) ARTIFACT (CELLAVISION)(BEAKER) Present (test code = 3432) PLATELET CONCENTRATION Adequate (CELLAVISION)(BEAKER) (test code = 3438) Received comment: User comments: Slide comments:POCT-GLUCOSE [id number] 08:27:00 Test Item Value Reference Range Interpretation Comments POC-GLUCOSE METER 90 mg/dL 70-110 : TESTED A T [facility] [address] (BEAKER) (test code = JOSE G [place], 1538) [address]: Private Eye/Techni charo ID = [id number] for BOZENA GOLDBERG Basic Metabolic [id number] 05:15:00 Test Item Value Reference Range Interpretation Comments Sodium (test code = 142 meq/L 842-664 2224-2) Potassium (test code = 4.0 meq/L 3.5-5.1 2823-3) Chloride (test code = 112 meq/L 98-107 H 2075-0) CO2 (test code = 25 meq/L -29 8-9) BUN (test code = 13 mg/dL 7-21 3094-0) Creatinine (test code = 1.28 mg/dL 0.57-1.25 H 2160-0) Glucose (test code = 89 mg/dL 70-105 2345-7) Calcium (test code = 8.9 mg/dL 8.4-10.2 15219-6) EGFR (test code = 50 mL/min/1.73 [place] [address]-3) NOT ACCURATE CREATININE CLEARANCE IN PREDICTING GLOMERULAR FILTRATION RATE . ESTIMATED GFR I S NOT APPLICABLE FOR DIALYSIS PATIEN TS. Lab Interpretation Abnormal (test code = 09089-9) [facility] METABOLIC [id number] 05:15:00 Test Item Value Reference Range Interpretation [...] NOT APPLICABLE FOR DIALYSIS PATIEN TS. POCT-GLUCOSE [id number] 20:27:00 Test Item Value Reference Range Interpretation Comments POC-GLUCOSE METER 119 mg/dL 70-110 H : TESTED A T [facility] [address] (BEAKER) (test code = [facility], 1538) [address]: Private Eye/Techni charo ID = [id number] for Go nzalexandrea, Jeffery POCT-GLUCOSE [id number] 17:11:00 Test Item Value Reference Range Interpretation Comments POC-GLUCOSE METER 122 mg/dL 70-110 H : TESTED A T [facility] [address] (BEAKER) (test code = [facility], 1538) [address]: Private Eye/Techni charo ID = [id number] for Ec at, Cecella POCT-GLUCOSE [id number] 13:01:00 Test Item Value Reference Range Interpretation Comments POC-GLUCOSE METER 113 mg/dL 70-110 H : TESTED A T [facility] [address] (BEAKER) (test code = [facility], 1538) [address]: Private Eye/Techni charo ID = [id number] for ANA PALACIO POCT-GLUCOSE [id number] 08:45:00 Test Item Value Reference Range Interpretation Comments POC-GLUCOSE METER 98 mg/dL 70-110 : TESTED A T [facility] [address] (BEAKER) (test code = [facility], 1538) [address]: Private Eye/Techni charo ID = [id number] for ANA GAGNON POCT-GLUCOSE [id number] 21:07:00 Test Item Value Reference Range Interpretation Comments POC-GLUCOSE METER 84 mg/dL 70-110 : TESTED A T [facility] [address] (BEAKER) (test code = [facility], 1538) 86[address]: Private Eye/Techni charo ID = [id number] for Pk Hammonds POCT-GLUCOSE [id number] 16:47:00 Test Item Value Reference Range Interpretation Comments POC-GLUCOSE METER 108 mg/dL 70-110 : TESTED A T [facility] [address] (BEAKER) (test code = [facility], 1538) 412[address]: Private Eye/Techni charo ID = [id number], Hiwitha POCT-GLUCOSE [id number] 15:12:00 Test Item Value Reference Range Interpretation Comments POC-GLUCOSE METER 118 mg/dL 70-110 H : TESTED A T [facility] [address] (BEAKER) (test code = [facility], 1538) 71684: Private Eye/Techni charo ID = [id number] for DA VIS, RODGER POCT-GLUCOSE [id number] 15:04:00 Test Item Value Reference Range Interpretation Comments POC-GLUCOSE METER 127 mg/dL 70-110 H : TESTED A T [facility] [address] (BEAKER) (test code = [facility], 1538) 00323: Private Eye/Techni charo ID = [id number] for LAXMI NTER, HIWITHA POCT-GLUCOSE [id number] 14:34:00 Test Item Value Reference Range Interpretation Comments POC-GLUCOSE METER 89 mg/dL 70-110 : TESTED A T [facility] [address] (BEAKER) (test code = [facility], [facility]8) [address]: Private Eye/Techni charo ID = [id number] for FRANSICO ER, HIWITHA POCT-GLUCOSE [id number] 13:53:00 Test Item Value Reference Range Interpretation Comments POC-GLUCOSE METER 137 mg/dL 70-110 H : TESTED A T [facility] [address] (BEAKER) (test code = [facility], 1538) [address]: Private Eye/Techni charo ID = [id number], Hiwitha POCT-GLUCOSE [id number] 12:44:00 Test Item Value Reference Range Interpretation Comments POC-GLUCOSE METER 125 mg/dL 70-110 H : TESTED A T [facility] [address] (BEAKER) (test code = [facility], 1538) 624[address]: Private Eye/Techni charo ID = [id number] for OC CRUZ POCT-GLUCOSE [id number] 08:33:00 Test Item Value Reference Range Interpretation Comments POC-GLUCOSE METER 112 mg/dL 70-110 H : TESTED A T [facility] [address] (BEAKER) (test code = [facility], 1538) 06471: Private Eye/Techni charo ID = [id number] for ANA PALACIO POCT-GLUCOSE [id number] 07:56:00 Test Item Value Reference Range Interpretation Comments POC-GLUCOSE METER 96 mg/dL 70-110 : TESTED A T [facility] [address] (BEAKER) (test code = [place], 1538) [address]: Private Eye/Techni charo ID = [id number] for Danica Pennington BASIC METABOLIC [id number] 07:07:00 Test Item Value Reference Range Interpretation [...] PATIEN TS. CBC W/PLT COUNT & AUTO [id number] 06:52:00 Test Item Value Reference Range Interpretation [...] PERCENT (BEAKER) (test code = 2801) POCT-GLUCOSE [id number] 21:36:00 Test Item Value Reference Range Interpretation Comments POC-GLUCOSE METER 143 mg/dL 70-110 H : TESTED A T [facility] [address] (BEAKER) (test code = JOSE [place], 1538) 6[address]: Private Eye/Techni charo ID = [id number] for RODGER JONES POCT-GLUCOSE [id number] 19:20:00 Test Item Value Reference Range Interpretation Comments POC-GLUCOSE METER 117 mg/dL 70-110 H : TESTED A T [facility] [address] (BEAKER) (test code = JOSE G James [facility], 1538) [address]: Private Eye/Techni charo ID = [id number] for RODGER JONES Treadmill tolerance(Non-Nuclear Treadmill)2019-01-12 12:40:45Interface, External Ris In [...] by MD GALLO JORGE ([id number])on 01/12/2019 12:40:38 [facility] [id number] 09:30:00 Test Item Value Reference Range Interpretation Comments POC-GLUCOSE METER 100 mg/dL 70-110 : TESTED Amy T [facility] [address] (DAYO) (test code = JOSE G James [facility], 1538) [address]: Private Eye/Techni charo ID = [id number] for ANA PALACIO BASIC METABOLIC [id number] 05:18:00 Test Item Value Reference Range Interpretation [...] PATIEN TS. CBC W/PLT COUNT & AUTO [id number] 04:37:00 Test Item Value Reference Range Interpretation [...] PERCENT (BEAKER) (test code = 2801) POCT-GLUCOSE [id number] 20:59:00 Test Item Value Reference Range Interpretation Comments POC-GLUCOSE METER 95 mg/dL 70-110 : TESTED A T [facility] [address] (BEAKER) (test code = [facility], 1538) 318[address]: Private Eye/Techni charo ID = [id number] for WALE Suárez RODGER POCT-GLUCOSE [id number] 17:08:00 Test Item Value Reference Range Interpretation Comments POC-GLUCOSE METER 90 mg/dL 70-110 : TESTED A T [facility] [address] (BEAKER) (test code = [facility], 1538) 05139: Private Eye/Techni charo ID = [id number] for BELLE CHAPA POCT-GLUCOSE [id number] 12:10:00 Test Item Value Reference Range Interpretation Comments POC-GLUCOSE METER 118 mg/dL 70-110 H : TESTED A T [facility] [address] (BEAKER) (test code = [facility], 1538) 29810: Private Eye/Techni charo ID = [id number] for BELLE GRIFFITHS U/S, RENAL, [id number] 10:37:00Reason for exam:->ckdFINAL REPORT TECHNIQUE: Grayscale ultrasound [...] [place] Verified Date/Time: 01/11/2019 10:37:05 Reading Location: [facility] C013Y CT Body Reading Room US renal [id number] 10:37:00Interface, External Ris In - 01/11/2019 10:39 [...] [place] Verified Date/Time: 01/11/2019 10:37:05 Reading Location: [facility] C013Y CT Body [facility] [id number] 09:22:00 Test Item Value Reference Range Interpretation Comments POC-GLUCOSE METER 75 mg/dL 70-110 : TESTED A T [facility] [address] (BEAKER) (test code = TROYVERONICA James [facility], 1538) 35264: Private Eye/Techni charo ID = [id number] for JACINTO DRISCOLL [id number] 04:57:00 Test Item Value Reference Range Interpretation Comments Magnesium (test code = 21816-5) 1.9 mg/dL 1.6-2.6 Lab Interpretation (test code = Normal 15393-6) [facility] 04:57:00 Test Item Value Reference Range Interpretation Comments Phosphorus (test code = 2777-1) 2.8 mg/dL 2.3-4.7 Lab Interpretation (test code = Normal 83327-8) [facility]2019-11-24 04:57:00 Test Item Value Reference Range Interpretation Comments PHOSPHORUS (BEAKER) (test code = 2.8 mg/dL 2.3-4.7 604) [id number] 04:57:00 Test Item Value Reference Range Interpretation Comments MAGNESIUM (BEAKER) (test code = 1.9 mg/dL 1.6-2.6 627) BASIC METABOLIC [id number] 04:57:00 Test Item Value Reference Range Interpretation [...] PATIEN TS. CBC W/PLT COUNT & AUTO [id number] 04:32:00 Test Item Value Reference Range Interpretation [...] PERCENT (BEAKER) (test code = 2801) POCT-GLUCOSE [id number] 22:26:00 Test Item Value Reference Range Interpretation Comments POC-GLUCOSE METER 95 mg/dL 70-110 : TESTED Amy Cervantes [facility] [address] (BEAKER) (test code = JOSE G [place], 1538) [address]: Private Eye/Techni charo ID = [id number] for Beena Reed POCT-GLUCOSE [id number] 17:04:00 Test Item Value Reference Range Interpretation Comments POC-GLUCOSE METER 98 mg/dL 70-110 : TESTED A T [facility] [address] (BEAKER) (test code = [place], 1538) 79[address]: Private Eye/Techni charo ID = [id number] for BELLE CHAPA PTH, [id number] 16:02:00 Test Item Value Reference Range Interpretation Comments PTH (test code = 2731-8) 200.6 pg/mL 8.5-72.5 H Lab Interpretation (test code = Abnormal 97856-9) [facility], [id number] 16:02:00 Test Item Value Reference Range Interpretation Comments PARATHYROID HORMONE INTACT 200.6 pg/mL 8.5-72.5 H (BEAKER) (test code = 577) CBC W/PLT COUNT & AUTO [id number] 15:09:00 Test Item Value Reference Range Interpretation [...] PERCENT (BEAKER) (test code = 2801) POCT-GLUCOSE [id number] 11:53:00 Test Item Value Reference Range Interpretation Comments POC-GLUCOSE METER 132 mg/dL 70-110 H : TESTED A T [facility] [address] (BEAKER) (test code = [facility], 1538) 51427: Private Eye/Techni charo ID = [id number] for Ryne Isaacsa POCT-GLUCOSE [id number] 09:42:00 Test Item Value Reference Range Interpretation Comments POC-GLUCOSE METER 112 mg/dL 70-110 H : TESTED A T [facility] [address] (BEAKER) (test code = [facility] [employer] [facility], 1538) [address]279: Private Eye/Techni charo ID = [id number] for Main Isaacswitha Uric [id number] 09:14:00 Test Item Value Reference Range Interpretation Comments Uric Acid (test code = 3084-1) 7.3 mg/dL 2.6-7.2 H Lab Interpretation (test code = Abnormal 80733-6) [facility] [id number] 09:14:00 Test Item Value Reference Range Interpretation Comments URIC ACID (BEAKER) (test code = 7.3 mg/dL 2.6-7.2 H 773) [id number] 06:14:00 Test Item Value Reference Range Interpretation Comments PHOSPHORUS (BEAKER) (test code = 2.8 mg/dL 2.3-4.7 604) [id number] 06:14:00 Test Item Value Reference Range Interpretation Comments MAGNESIUM (BEAKER) (test code = 1.9 mg/dL 1.6-2.6 627) BASIC METABOLIC [id number] 06:14:00 Test Item Value Reference Range Interpretation [...] NOT APPLICABLE FOR DIALYSIS PATIEN TS. POCT-GLUCOSE [id number] 21:33:00 Test Item Value Reference Range Interpretation Comments POC-GLUCOSE METER 113 mg/dL 70-110 H : TESTED A T [facility] [address] (BEAKER) (test code = [facility] [employer] [facility], 1538) 64070: Private Eye/Techni charo ID = [id number] for TORY FONTENOT RODGER POCT-GLUCOSE [id number] 17:16:00 Test Item Value Reference Range Interpretation Comments POC-GLUCOSE METER 113 mg/dL 70-110 H : TESTED A T [facility] 6720 (BEAKER) (test code = [facility] [employer] [facility], 1538) [address]: Private Eye/Techni charo ID = [id number] for RIDDHI AGUILAR POCT-GLUCOSE [id number] 12:17:00 Test Item Value Reference Range Interpretation Comments POC-GLUCOSE METER 166 mg/dL 70-110 H : TESTED A T [facility] 6720 (BEAKER) (test code = [facility], 1538) [address]: Private Eye/Techni charo ID = [id number] for CHINTAN MCCLELLAND POCT-GLUCOSE [id number] 07:51:00 Test Item Value Reference Range Interpretation Comments POC-GLUCOSE METER 143 mg/dL 70-110 H : TESTED A T [facility] 6720 (BEAKER) (test code = [facility], 1538) 86567: Private Eye/Techni charo ID = [id number] for Neena Stanley [id number] 06:28:00 Test Item Value Reference Range Interpretation Comments MAGNESIUM (BEAKER) 1.8 mg/dL 1.6-2.6 Specimen slightly (test code = 627) hemolyzed [id number] 06:28:00 Test Item Value Reference Range Interpretation Comments PHOSPHORUS (BEAKER) 2.5 mg/dL 2.3-4.7 Specimen slightly (test code = 604) hemolyzed BASIC METABOLIC [id number] 06:28:00 Test Item Value Reference Range Interpretation [...] PATIEN TS. CBC W/PLT COUNT & AUTO [id number] 04:20:00 Test Item Value Reference Range Interpretation [...] 0-1 PERCENT (BEAKER) (test code = 2801) [id number] 17:40:00 Test Item Value Reference Range Interpretation Comments PHOSPHORUS (BEAKER) (test code = 3.3 mg/dL 2.3-4.7 604) [id number] 17:40:00 Test Item Value Reference Range Interpretation Comments MAGNESIUM (BEAKER) (test code = 1.8 mg/dL 1.6-2.6 627) BASIC METABOLIC [id number] 17:40:00 Test Item Value Reference Range Interpretation [...] S NOT APPLICABLE FOR DIALYSIS PATIEN TS. [id number] 17:03:00 Test Item Value Reference Range Interpretation Comments Protime (test code = 15.7 11.9- 14.2 H 5902-2) seconds INR (test code = 1.3 <=5.9 6301-6) PTT (test code = 34.4 22.5- 36.0 58330-2) seconds LINA (test code = LINA) Effective 07/16/2018: PT Reference Range ChangeNew: 11.9-14.2 Previous: 11.7-14.7 RECOMMENDED COUMADIN/WARFARIN INR THERAPY RANGESSTANDARD DOSE: 2.0-3.0 Includes: PROPHYLAXIS for venous thrombosis, systemic embolization; TREATMENT for venous thrombosis and/or pulmonary embolus.HIGH RISK: Target INR is 2.5-3.5 for patients wiht mechanical heart valves. Lab Interpretation Abnormal (test code = 00740-3) [facility] Center[facility]/[id number] 17:03:00 Test Item Value Reference Range Interpretation [...] mechanical heart valves.CBC W/PLT COUNT & AUTO [id number] 16:56:00 Test Item Value Reference Range Interpretation [...] PERCENT (BEAKER) (test code = 2801) POCT-GLUCOSE [id number] 16:55:00 Test Item Value Reference Range Interpretation Comments POC-GLUCOSE METER 200 mg/dL 70-110 H : TESTED A T [facility] 6720 (BEAKER) (test code = JO[facility] G James [facility], 1538) [address]: Private Eye/Techni charo ID = [id number] for JOSE DENNEY POC ACTIVATED CLOTTING [id number] 13:51:00 Test Item Value Reference Range Interpretation Comments Activated Clotting Time 274 sec Refe rence Range: 74-137 (test code = 441) seconds, B aseline/TESTED AT [facility] [address] [place] [address] 0 [facility] [id number] 13:51:00 Test Item Value Reference Range Interpretation Comments ACTIVATED CLOTTING TIME 274 sec Refe rence Range: (BEAKER) (test code = 74-137 seconds, 441) Baseline/TESTED AT [place] [id number] [facility] 7703 0 [id number] 13:51:00 Test Item Value Reference Range Interpretation Comments ACTIVATED CLOTTING TIME 323 sec Refe rence Range: (BEAKER) (test code = 74-137 seconds, 441) Baseline/TESTED AT [address] 7703 0 CBC W/PLT COUNT & AUTO [id number] 07:44:00 Test Item Value Reference Range Interpretation [...] PERCENT (BEAKER) (test code = 2801) POCT-GLUCOSE [id number] 06:13:00 Test Item Value Reference Range Interpretation Comments POC-GLUCOSE METER 123 mg/dL 70-110 H : TESTED A T [facility] 6720 (BEAKER) (test code [facility], = 1538) 36628: Private Eye/Techni charo ID = [id number] for JORD AN, LACRYSTAL Prepare [id number] 19:14:00 Test Item Value Reference Range Interpretation Comments Unit ABO (test code = O Pos 6665088) UNIT NUMBER (test code = [id number] 934-0) Status (test code = 6694134) READY Blood Bank Product (test code RED BLOOD CELLS = 2263) PRODUCT CODE (test code = H0253C75 933-2) CROSSMATCH (test code = 2264) COMPATIBLE [facility] CenterType and screen, [id number] 11:36:00 Test Item Value Reference Range Interpretation Comments ABO/RH AUTOMATED (BEAKER) (test O POSITIVE code = 2260) Ab Scrn (test code = 890-4) NEGATIVE [facility] CenterPlatelet [id number] 11:27:00 Test Item Value Reference Range Interpretation Comments Platelets (test code = 777-3) 112 150- 450 K/CU MM L Lab Interpretation (test code = Abnormal 75019-0) [facility] CenterPLATELET [id number] 11:27:00 Test Item Value Reference Range Interpretation Comments PLATELET COUNT (BEAKER) (test 112 K/CU MM 150-450 L code = 756) [id number] 11:07:00 Test Item Value Reference Range Interpretation Comments Sodium (test code = 2951-2) 138 meq/L 136-145 Potassium (test code = 2823-3) 4.7 meq/L 3.5-5.1 Chloride (test code = 2075-0) 107 meq/L 98-107 CO2 (test code = 8-9) 26 meq/L 22-29 Lab Interpretation (test code = Normal 89412-9) [facility] CenterGlucose2019-11-11 11:07:00 Test Item Value Reference Range Interpretation Comments Glucose (test code = 2345-7) 134 mg/dL 70-105 H Lab Interpretation (test code = Abnormal 04564-0) [facility] CenterBUN and [id number] 11:07:00 Test Item Value Reference Range Interpretation Comments BUN (test code = 26 mg/dL 7-21 H 3094-0) Creatinine (test code = 1.83 mg/dL 0.57-1.25 H 2160-0) EGFR (test code = 33 mL/min/1.73 [place] [address]-4) NOT ACCURATE CREATININE CLEARANCE IN PREDICTING GLOMERULAR FILTRATION RATE . ESTIMATED GFR I S NOT APPLICABLE FOR DIALYSIS PATIEN TS. Lab Interpretation Abnormal (test code = 31689-8) [facility] CenterELECTROLYTES2019-11-11 11:07:00 Test Item Value Reference Range Interpretation Comments SODIUM (BEAKER) (test code = 381) 138 meq/L 136-145 POTASSIUM (BEAKER) (test code = 4.7 meq/L 3.5-5.1 379) CHLORIDE (BEAKER) (test code = 382) 107 meq/L 98-107 CO2 (BEAKER) (test code = 355) 26 meq/L 22-29 [id number] 11:07:00 Test Item Value Reference Range Interpretation Comments GLUCOSE RANDOM (BEAKER) (test code 134 mg/dL 70-105 H = 652) BUN AND [id number] 11:07:00 Test Item Value Reference Range Interpretation Comments BLOOD UREA NITROGEN 26 mg/dL 7-21 H (BEAKER) (test code = 354) CREATININE (BEAKER) 1.83 mg/dL 0.57-1.25 H (test code = 358) EGFR (DAYO) (test 33 mL/min/1.73 ESTIMA RADHA GFR IS code = 1092) sq m NOT ACCURATE CREATININE CLEARANCE IN PREDICTING GLOMERULAR FILTRATION RATE . ESTIMATED GFR I S NOT APPLICABLE FOR DIALYSIS PATIEN [id number] 10:54:00 Test Item Value Reference Range Interpretation Comments Hemoglobin (test code = 786-4) 13.1 11.2- 15.7 GM/DL Lab Interpretation (test code = Normal 79980-8) [facility] CenterHEMOGLOBIN2019-11-11 10:54:00 Test Item Value Reference Range Interpretation Comments HEMOGLOBIN (DAYO) (test code = 13.1 GM/DL 11.2-15.7 410) ECG 12 [id number] 12:11:27Interface, External Ris In - 11/27/2018 12:11 PM CDTVentricular Rate 59 BPMAtrial Rate 59 BPMP-R Interval 242 msQRS Duration 120 msQ-T Interval 520 msQTC Calculation(Bazett) 514 msP [place] 72 degreesR [place] 37 degreesT [place] 61 degreesSinus bradycardia with 1st degree A-V blockSeptal infarct , age undeterminedAbnormal ECGConfirmed by MD Alan, [facility] ([id number]) on 11/27/2018 12:11:21 [facility]PET[facility] PERFUSION MULTIPLE STUDIES, REST AND [id number] 16:17:00Reason for Exam:->i73.9, e11.9, i25.10FINAL REPORT PROCEDURE: MYOCARDIAL PERFUSION PET IMAGING (Rest/Stress)CPT CODE: 73717 INDICATION: Known CAD CARDIOVASCULAR PROFILE:CAD History: Known [...] MDReport Verified Date/Time: 11/26/2018 16:17:24 Reading Location: [address] Reading Room [place] myocardial perfusion PET (rest and stress)2018-11-26 16:17:00Interface, External Ris In - 11/26/2018 4:56 PM CDTFINAL REPORT PROCEDURE: MYOCARDIAL PERFUSION PET IMAGING (Rest/Stress)CPT CODE: 55524 INDICATION: Known CAD CARDIOVASCULAR PROFILE:CAD History: Known [...] Naidu MDReportVerified Date/Time: 11/26/2018 16:17:24 Reading Location: [address] Reading Room [facility] HospitalAntibody identification 2018-11-04 16:22:00 Test Item Value Reference Range Interpretation Comments ANTIBODY ID (BEAKER) UNID IgG (test code = 2253) Antibody Consult SIGNED OUT An IgG anti body of (test code = 2479) undetermi porfirio specificity is detected, trans fuse crossmatch comp atible RBCs.Electronic Signature: Chuckie Ferro M.D. [facility] CenterAntibody [id number] 11:45:00 Test Item Value Reference Range Interpretation Comments Ab Scrn (test code = POSITIVE PEG. IS - SC1: 0, SC2: 890-4) 0, SC3: 0. CC - SC1: 3+, SC2: NT, SC3: 3 +. [facility] CenterABORH, [id number] 10:12:00 Test Item Value Reference Range Interpretation Comments ABO Grouping (test code = 2588) O Rh Factor (test code = 2589) POS [facility] CenterBASIC METABOLIC [id number] 11:28:00 Test Item Value Reference Range Interpretation [...] PATIEN TS. CBC W/PLT COUNT & AUTO [id number] 11:19:00 Test Item Value Reference Range Interpretation [...] (BEAKER) (test code = 2801) BASIC METABOLIC [id number] 14:13:00 Test Item Value Reference Range Interpretation [...] PATIEN TS. CBC W/PLT COUNT & AUTO [id number] 13:54:00 Test Item Value Reference Range Interpretation [...]
[2019-09-29] MEDS ORDERED: DERMABOND SKIN ADHESIVE TOP ONE (12:26)
--- NOTE | 2019-09-29 12:30 | ER ---
Nurse's Notes [facility] Name: Sangita Hendrix Age: 74 yrs Sex: Female : 1945 Arrival Date: 09/29/2019 Time: 11:51 Bed 13 Private MD: Nam Alexander R Diagnosis: Laceration without foreign body of left thumb without damage to nail Presentation: 09/28 12:07 Chief complaint: Patient states: L thumb laceration sustained 30 minutes ago while ss cleaning a mirror. Bleeding controlled at this time. Pt's family is concerned because she takes Plavix. Coronavirus screen: Client denies travel out of the [place] in the last 14 days. At this time, the client does not indicate any symptoms associated with coronavirus-19. Ebola Screen: Patient denies exposure to infectious person. Patient denies travel to an Ebola-affected area in the 21 days before illness onset. Initial Sepsis Screen: Does the patient meet any 2 criteria? No. Patient's initial sepsis screen is negative. Does the patient have a suspected source of infection? No. Patient's initial sepsis screen is negative. Risk Assessment: Do you want to hurt yourself or someone else? Patient reports no desire to harm self or others. Onset of symptoms was September 29, 2019. 12:07 Method Of Arrival: Ambulatory ss 12:07 Acuity: MADISYN 4 ss Historical: - Allergies: 12:13 PENICILLINS; ss - Home Meds: 12:13 Lasix 40 mg Oral tab 1 tab 2 times per day [Active]; allopurinol 300 mg Oral tab 1 tab ss once daily [Active]; Entresto 24-26 mg Oral tab daily [Active]; Lantus Sub-Q 100 unit/mL [Active]; potassium chloride 20 mEq Oral TbER 1 tab once daily [Active]; acetaminophen-codeine 300-30 mg Oral tab 1 tab every 4 hours [Active]; Coreg 6.25 mg Oral tab 1 tab [Active]; - PMHx: 12:13 BRADYCARDIA; CHF; Diabetes - IDDM; Gout; Pacemaker; ss - Immunization history:: Adult Immunizations up to date, Last tetanus immunization: up to date. - Social history:: Smoking status: Patient denies any tobacco usage or history of. Screenin:13 Abuse screen: Denies threats or abuse. Denies injuries from another. Nutritional ss screening: No deficits noted. Tuberculosis screening: Never had TB. Fall Risk None identified. Assessment: 12:13 General: Appears in no apparent distress. comfortable, Behavior is calm, cooperative. ss Pain: Complains of pain in palmar aspect of distal phalanx of left thumb Pain currently is 5 out of 10 on a pain scale. Quality of pain is described as tender. Neuro: Level of Consciousness is awake, alert, obeys commands, Oriented to person, place, time, situation. Cardiovascular: Capillary refill < 3 seconds is brisk in bilateral fingers. Respiratory: Airway is patent is compromised Respiratory effort is even, unlabored. EENT: Oral mucosa is moist. Derm: Skin is pink, warm \T\ dry. normal. Injury Description: Laceration sustained to palmar aspect of distal phalanx of left thumb is < 0.5cm no active bleeding noted at this time. 12:25 Reassessment: cleaned wound with hibiclens. Vital Signs: 12:07 BP 153 / 79; Pulse 61; Resp 16; Temp 98.4(O); Pulse Ox 98% ; Pain 5/10; ss ED Course: 11:51 Patient arrived in ED. mr 11:51 Nam Alexander MD is Private Physician. mr 12:05 Estrella Eli RN is Primary Nurse. 12:05 Darrell Franco NP is [facility]. pm1 12:05 Kev Russ MD is Attending Physician. pm1 12:12 Triage completed. ss 12:13 Arm band placed on right wrist. ss 12:13 Patient has correct armband on for positive identification. Bed in low position. Call ss light in reach. 12:13 No provider procedures requiring assistance completed. Patient did not have IV access ss during this emergency room visit. 12:25 Wound care: to laceration was cleaned with Hibiclens, Patient tolerated well. ss Administered Medications: No medications were administered Outcome: 12:29 Discharge ordered by MD. pm1 12:50 Patient left the ED. Signatures: Henry Erlinda mr Estrella Eli RN RN Darrell Franco NP CENTRAL STATION OPERATOR pm1
--- NOTE | 2019-09-29 12:30 | EDPHYS ---
Physician Documentation [facility] Name: Sangita Hendrix Age: 74 yrs Sex: Female : 1945 Arrival Date: 09/29/2019 Time: 11:51 Bed 13 Private MD: Nam Alexander R ED Physician Kev Russ HPI: 09/28 12:12 This 74 yrs old Black Female presents to ER via Ambulatory with complaints of Thumb pm1 laceration. 12:12 Onset: The symptoms/episode began/occurred just prior to arrival. Associated signs and pm1 symptoms: The patient has no apparent associated signs or symptoms. Modifying factors: The patient symptoms are alleviated by nothing, the patient symptoms are aggravated by nothing. Patient was cleaning a hanging mirror that has a sharp edge. She cut her left thumb on the glass and was unable to stop the bleeding. patient takes plavix and aspirin. Historical: - Allergies: 12:13 PENICILLINS; ss - Home Meds: 12:13 Lasix 40 mg Oral tab 1 tab 2 times per day [Active]; allopurinol 300 mg Oral tab 1 tab ss once daily [Active]; Entresto 24-26 mg Oral tab daily [Active]; Lantus Sub-Q 100 unit/mL [Active]; potassium chloride 20 mEq Oral TbER 1 tab once daily [Active]; acetaminophen-codeine 300-30 mg Oral tab 1 tab every 4 hours [Active]; Coreg 6.25 mg Oral tab 1 tab [Active]; - PMHx: 12:13 BRADYCARDIA; CHF; Diabetes - IDDM; Gout; Pacemaker; ss - Immunization history:: Adult Immunizations up to date, Last tetanus immunization: up to date. - Social history:: Smoking status: Patient denies any tobacco usage or history of. ROS: 12:12 Constitutional: Negative for fever, chills, and weight loss. pm1 12:12 Neuro: Negative for headache, weakness, numbness, tingling, and seizure. 12:12 MS/extremity: Positive for laceration, of the palmar aspect of distal phalanx of left thumb. 12:12 Skin: Positive for laceration(s), of the palmar aspect of distal phalanx of left thumb. 12:12 All other systems are negative. Exam: 12:12 Constitutional: This is a well developed, well nourished patient who is awake, alert, pm1 and in no acute distress. Head/Face: Normocephalic, atraumatic. 12:12 Cardiovascular: Exam negative for acute changes, Rate: normal, Rhythm: regular, Pulses: no pulse deficits are appreciated. 12:12 Respiratory: Exam negative for acute changes, respiratory distress, shortness of breath. 12:12 Musculoskeletal/extremity: 12:12 Skin: Appearance: normal except for affected area, injury, laceration(s), the wound is approximately 0.5 cm(s), with a depth of 0.2 cm(s), of the palmar aspect of distal phalanx of left thumb, that can be described as clean, no foreign body, linear, with mild bleeding. Vital Signs: 12:07 BP 153 / 79; Pulse 61; Resp 16; Temp 98.4(O); Pulse Ox 98% ; Pain 5/10; ss Laceration: 12:28 Wound Repair of 0.5cm ( 0.2in ) subcutaneous laceration to palmar aspect of distal pm1 phalanx of left thumb. Linear shaped.. Distal neuro/vascular/tendon intact. Skin closed with 1-0 Adhesive skin closure using Dermabond. Patient tolerated well. MDM: 12:06 Patient medically screened. pm1 12:12 ED course: Tetanus shot within 5 years. 3 years ago. pm1 12:12 Data reviewed: vital signs. Data interpreted: Pulse oximetry: on room air is 98 %. pm1 Interpretation: normal. 12:28 Counseling: I had a detailed discussion with the patient and/or guardian regarding: the pm1 historical points, exam findings, and any diagnostic results supporting the discharge/admit diagnosis, to return to the emergency department if symptoms worsen or persist or if there are any questions or concerns that arise at home. 09/28 12:10 Order name: Dermabond; Complete Time: 12:14 pm1 Administered Medications: No medications were administered Disposition: 18:58 Co-signature as Attending Physician, Kev Russ MD Signing chart for administrative ps1 purposes. Did not see or evaluate patient. Not an endorsement of care. . Disposition: 09/29/19 12:29 Discharged to Home. Impression: Laceration without foreign body of left thumb without damage to nail. - Condition is Stable. - Discharge Instructions: Tissue Adhesive Wound Care. - Medication Reconciliation Form, Thank You Letter, Antibiotic Education, Prescription Opioid Use form. - Follow up: Emergency Department; When: As needed; Reason: Worsening of condition. Follow up: Private Physician; When: As needed; Reason: Recheck today's complaints, Continuance of care, Re-evaluation by your physician. - Problem is new. - Symptoms have improved. Signatures: Estrella Eli RN RN ss Darrlel Franco NP PHOTOGRAPHY COLORIST pm1 Kev Russ MD MD ps1 Corrections: (The following items were deleted from the chart) 12:50 12:29 09/29/2019 12:29 Discharged to Home. Impression: Laceration without foreign body ss of left thumb without damage to nail. Condition is Stable. Forms are Medication Reconciliation Form, Thank You Letter, Antibiotic Education, Prescription Opioid Use. Follow up: Emergency Department; When: As needed; Reason: Worsening of condition. Follow up: Private Physician; When: As needed; Reason: Recheck today's complaints, Continuance of care, Re-evaluation by your physician. Problem is new. Symptoms have improved. pm1
[2019-09-29 12:56] VITALS: BP 153/79; TEMP 98.4; O2SAT 98
== END 2019-09-29 12:50 | disposition home or self-care (01) ==
LOC: ER 11:49
PROC: 0JQK0ZZ Repair Left Hand Subcutaneous Tissue and Fascia, Open Approach (ICD-10-PCS; principal; 2019-09-29)
DX: S61.012A Laceration without foreign body of left thumb without damage to nail, initial encounter (principal); W25.XXXA Contact with sharp glass, initial encounter; Y93.E9 Activity, other interior property and clothing maintenance; Y92.9 Unspecified place or not applicable; Z95.0 Presence of cardiac pacemaker; E11.9 Type 2 diabetes mellitus without complications; Z79.4 Long term (current) use of insulin; Z88.0 Allergy status to penicillin; Z79.01 Long term (current) use of anticoagulants; Z79.82 Long term (current) use of aspirin; I50.9 Heart failure, unspecified
CPT/HCPCS: 99282

== ENCOUNTER 2019-11-16 21:02 | Emergency (ER) | payer OTHER ==
--- OUTSIDE RECORDS SUMMARY | 2019-11-16 21:06 | XMS REPORT | Clinical Summary ---
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, bilateral legs Peripheral artery disease 11/03/2018 PAD (peripheral artery disease) 06/17/2018 Encounters Date Type Specialty Care Team Description 01/10/2019 Travel 01/08/2019 Surgery Ian Daon BYPASS,FEMORAL -PERONEAL 01/08/2019 Anesthesia Event Rita Hiar 01/08/2019 - Hospital Encounter Cardiology Ian Doan, PAD (per ipheral artery disease) ([facility]); 01/16/2019 Acute post-oper ative pain; Acute blood los s anemia; Ischemic cardio myopathy; Type 2 diabetes mellitus with diabetic peripheral angiopathy without gangrene, with long-term current use of insulin ([facility]); Hyperglycemia 12/29/2018 Hospital Encounter Pre-Admission Ian Doan Testing MD 11/26/2018 Hospital Encounter Radiology Michael Mancia PAD (paul pheral artery disease) ([facility]); MD Pritesh Type 2 diabete s mellitus without complication, unspecified whether salvage determiner insulin use ([facility]); Atherosclerosis of [place] coronary artery of [place] heart, angina presence unspecified 11/22/2018 Outside Orders Central Scheduling Gavino Michael PAD (pe ripheral artery disease) ([facility]) (Primary Dx); MD Pritesh Type 2 diabete s mellitus without complication, unspecified whether alf insulin use ([facility]); Atherosclerosis of [place] coronary artery of [place] heart, angina presence unspecified after 11/15/2018 Social History Tobacco Use Types Packs/Day Years [...] Taken Blood Pressure 123/75 01/16/2019 3:00 PM [facility]ED [facility] Pulse 61 01/16/2019 3:00 PM [facility] Temperature 36.1 C (97 F) 01/16/2019 3:00 PM [facility] Respiratory Rate 17 01/16/2019 3:00 PM [facility] Oxygen Saturation 100% 01/16/2019 3:00 PM [facility] Inhaled Oxygen Concentration - - Weight 97.8 kg (215 lb 8 oz) 01/16/2019 9:00 A M [facility] Height 162.6 cm (5' 4") 01/08/2019 5:35 AM [facility]ED [facility] Body Mass Index 36.99 01/16/2019 9:00 AM [facility]ED [facility] Plan of Treatment Not on file Implants Implanted Type Area Concrete Carpenter Device Shelf Model / Identifier Expiration Serial / Date Lot [employer] N/A: [employer]ASC 09/11/19 21 [id number] / Implanted: Qty: 1 on 06/17/2018 by Ian Doan MD Arterial SURG / [id number] [employer] N/A: [employer] 04/02/19 20 [id number] / Implanted: Qty: 1 on 06/17/2018 by Ian Doan MD Arterial SURG / [id number] Angio Seal Right: TERUMO 02/17/2019 [id number] / Implanted: Qty: 1 on 06/17/2018 by Ian Doan MD Arterial CARDIOVASCULAR / SYSTEMS [id number] Cellerate Activated Collagen Left: Leg WOUND CARE 08/17/2021 [id number] / Implanted: Qty: 1 on 01/08/2019 by Ian Doan MD [employer] [id number] / Procedures Procedure Name Priority Date/Time Associated Comments Diagnosis RHYTHM STRIP - SCAN 01/20/2019 12:50 PM [facility] RHYTHM STRIP - SCAN 01/20/2019 12:50 PM [facility]ED HAND RHYTHM STRIP - SCAN 01/20/2019 12:42 PM [facility] POCT-GLUCOSE METER Routine 01/16/2019 11:28 Resul ts for this AM [facility] procedure are i n the results section. POCT-GLUCOSE METER Routine 01/16/2019 8:16 Resul ts for this AM [facility] procedure are i n the results section. (CELLAVISION MANUAL Routine 01/16/2019 4:23 Resu lts for this DIFF) AM [facility]ED [facility] procedure are i n the results section. CBC W/PLT COUNT & Routine 01/16/2019 4:23 Result s for this AUTO DIFFERENTIAL AM [facility] procedure are in the results section. CBC W/PLT COUNT & Routine 01/16/2019 4:23 Result s for this AUTO DIFFERENTIAL AM [facility] procedure are in the results section. BASIC METABOLIC PANEL Routine 01/16/2019 4:23 Re sults for this (7) AM [facility] procedure are i n the results section. POCT-GLUCOSE METER Routine 01/15/2019 8:16 Resul ts for this PM [facility] procedure are i n the results section. POCT-GLUCOSE METER Routine 01/15/2019 5:00 Resul ts for this PM [facility] procedure are i n the results section. POCT-GLUCOSE METER Routine 01/15/2019 12:49 Resul ts for this PM [facility] procedure are i n the results section. POCT-GLUCOSE METER Routine 01/15/2019 8:33 Resul ts for this AM [facility] procedure are i n the results section. POCT-GLUCOSE METER Routine 01/14/2019 8:56 Resul ts for this PM [facility] procedure are i n the results section. POCT-GLUCOSE METER Routine 01/14/2019 4:35 Resul ts for this PM [facility] procedure are i n the results section. POCT-GLUCOSE METER Routine 01/14/2019 12:35 Resul ts for this PM [facility] procedure are i n the results section. POCT-GLUCOSE METER Routine 01/14/2019 7:41 Resul ts for this AM [facility] procedure are i n the results section. POCT-GLUCOSE METER Routine 01/13/2019 9:22 Resul ts for this PM [facility] procedure are i n the results section. POCT-GLUCOSE METER Routine 01/13/2019 4:59 Resul ts for this PM [facility] procedure are i n the results section. POCT-GLUCOSE METER Routine 01/13/2019 12:32 Resul ts for this PM [facility] procedure are i n the results section. POCT-GLUCOSE METER Routine 01/13/2019 7:44 Resul ts for this AM [facility] procedure are i n the results section. CBC W/PLT COUNT & Routine 01/13/2019 5:47 Result s for this AUTO DIFFERENTIAL AM [facility] procedure are in the results section. CBC W/PLT COUNT & Routine 01/13/2019 5:47 Result s for this AUTO DIFFERENTIAL AM [facility] procedure are in the results section. BASIC METABOLIC PANEL Routine 01/13/2019 5:47 Re sults for this (7) AM [facility] procedure are i n the results section. POCT-GLUCOSE METER Routine 01/12/2019 9:24 Resul ts for this PM [facility] procedure are i n the results section. POCT-GLUCOSE METER Routine 01/12/2019 7:08 Resul ts for this PM [facility] procedure are i n the results section. POCT-GLUCOSE METER Routine 01/12/2019 5:14 Resul ts for this PM [facility] procedure are i n the results section. POCT-GLUCOSE METER Routine 01/12/2019 9:19 Resul ts for this AM [facility] procedure are i n the results section. CBC W/PLT COUNT & Routine 01/12/2019 4:14 Result s for this AUTO DIFFERENTIAL AM [facility] procedure are in the results section. CBC W/PLT COUNT & Routine 01/12/2019 4:14 Result s for this AUTO DIFFERENTIAL AM [facility] procedure are in the results section. BASIC METABOLIC PANEL Routine 01/12/2019 4:14 Re sults for this (7) AM [facility] procedure are i n the results section. POCT-GLUCOSE METER Routine 01/11/2019 8:47 Resul ts for this PM [facility] procedure are i n the results section. POCT-GLUCOSE METER Routine 01/11/2019 4:56 Resul ts for this PM [facility] procedure are i n the results section. POCT-GLUCOSE METER Routine 01/11/2019 11:56 Resul ts for this AM [facility] procedure are i n the results section. POCT-GLUCOSE METER Routine 01/11/2019 9:10 Resul ts for this AM [facility] procedure are i n the results section. US RENAL COMPLETE Routine 01/11/2019 8:59 Result s for this AM [facility] procedure are i n the results section. CBC W/PLT COUNT & Routine 01/11/2019 4:15 Result s for this AUTO DIFFERENTIAL AM [facility] procedure are in the results section. PHOSPHORUS Routine 01/11/2019 4:15 Results for this AM [facility] procedure are i n the results section. MAGNESIUM Routine 01/11/2019 4:15 Results for this AM [facility] procedure are i n the results section. CBC W/PLT COUNT & Routine 01/11/2019 4:15 Result s for this AUTO DIFFERENTIAL AM [facility] procedure are in the results section. BASIC METABOLIC PANEL Routine 01/11/2019 4:15 Re sults for this (7) AM [facility] procedure are i n the results section. POCT-GLUCOSE METER Routine 01/10/2019 10:14 Resul ts for this PM [facility] procedure are i n the results section. POCT-GLUCOSE METER Routine 01/10/2019 4:52 Resul ts for this PM [facility] procedure are i n the results section. CBC W/PLT COUNT & Routine 01/10/2019 2:55 Result s for this AUTO DIFFERENTIAL PM [facility] procedure are in the results section. PTH, INTACT Routine 01/10/2019 2:55 Results for this PM [facility] procedure are i n the results section. CBC W/PLT COUNT & Routine 01/10/2019 2:55 Result s for this AUTO DIFFERENTIAL PM [facility] procedure are in the results section. POCT-GLUCOSE METER Routine 01/10/2019 11:41 Resul ts for this AM [facility] procedure are i n the results section. POCT-GLUCOSE METER Routine 01/10/2019 9:30 Resul ts for this AM [facility] procedure are i n the results section. URIC ACID Add-On 01/10/2019 5:04 Results for this AM [facility] procedure are i n the results section. PHOSPHORUS Routine 01/10/2019 5:04 Results for this AM [facility] procedure are i n the results section. MAGNESIUM Routine 01/10/2019 5:04 Results for this AM [facility] procedure are i n the results section. BASIC METABOLIC PANEL Routine 01/10/2019 5:04 Re sults for this (7) AM [facility] procedure are i n the results section. POCT-GLUCOSE METER Routine 01/09/2019 9:22 Resul ts for this PM [facility] procedure are i n the results section. POCT-GLUCOSE METER Routine 01/09/2019 5:05 Resul ts for this PM [facility] procedure are i n the results section. POCT-GLUCOSE METER Routine 01/09/2019 12:06 Resul ts for this PM [facility] procedure are i n the results section. POCT-GLUCOSE METER Routine 01/09/2019 7:40 Resul ts for this AM [facility] procedure are i n the results section. PHOSPHORUS Routine 01/09/2019 3:45 Results for this AM [facility] procedure are i n the results section. MAGNESIUM Routine 01/09/2019 3:45 Results for this AM [facility] procedure are i n the results section. BASIC METABOLIC PANEL Routine 01/09/2019 3:45 Re sults for this (7) AM [facility] procedure are i n the results section. CBC W/PLT COUNT & Routine 01/09/2019 3:11 Result s for this AUTO DIFFERENTIAL AM [facility] procedure are in the results section. CBC W/PLT COUNT & Routine 01/09/2019 3:11 Result s for this AUTO DIFFERENTIAL AM [facility] procedure are in the results section. TRANSFUSION SERVICE 01/08/2019 5:54 REPORT - SCAN PM [facility] POCT-GLUCOSE METER Routine 01/08/2019 4:43 Resul ts for this PM [facility] procedure are i n the results section. CBC W/PLT COUNT & Routine 01/08/2019 4:36 Result s for this AUTO DIFFERENTIAL PM [facility] procedure are in the results section. CBC W/PLT COUNT & Routine 01/08/2019 4:36 Result s for this AUTO DIFFERENTIAL PM [facility] procedure are in the results section. PHOSPHORUS Routine 01/08/2019 4:36 Results for this PM [facility] procedure are i n the results section. MAGNESIUM Routine 01/08/2019 4:36 Results for this PM [facility] procedure are i n the results section. PT/APTT Routine 01/08/2019 4:36 Results for this PM [facility] procedure are i n the results section. BASIC METABOLIC PANEL Routine 01/08/2019 4:36 Re sults for this (7) PM [facility] procedure are i n the results section. POCT-ACT Routine 01/08/2019 1:08 Results for this PM [facility] procedure are i n the results section. POCT-ACT Routine 01/08/2019 12:08 Results for this PM [facility] procedure are i n the results section. HARVEST,VEIN 01/08/2019 7:30 PAD (peripheral AM [facility] artery disease) (HCC) Case Notes 4 HRS PER E-MAIL Special Needs (ICU BED NEEDED) BYPASS,FEMORAL-PERONEAL 01/08/2019 7:30 AM [facility]ED [facility] PAD (peripheral artery disease) (HCC) Case Notes 4 HRS PER E-MAIL Special Needs (ICU BED NEEDED) CBC W/PLT COUNT & Routine 01/08/2019 6:39 AM Res ults for this AUTO DIFFERENTIAL [facility] procedure are in the results section. CBC W/PLT COUNT & Routine 01/08/2019 6:39 AM Res ults for this AUTO DIFFERENTIAL [facility] procedure are in the results section. POCT-GLUCOSE METER Routine 01/08/2019 6:01 AM Re sults for this [facility] procedure are i n the results section. PREPARE RBC Routine 01/07/2019 7:14 PM Results for this [facility] procedure are i n the results section. TRANSFUSION SERVICE 12/30/2018 5:55 PM REPORT - SCAN [facility] TYPE AND SCREEN, Routine 12/29/2018 10:40 AM Resu lts for this AUTOMATED [facility] procedure are i n the results section. GLUCOSE Routine 12/29/2018 10:40 AM Results for this [facility] procedure are i n the results section. PLATELET COUNT Routine 12/29/2018 10:40 AM Result s for this [facility] procedure are i n the results section. BUN AND CREATININE Routine 12/29/2018 10:40 AM Re sults for this W/RATIO [facility] procedure are i n the results section. ELECTROLYTE PANEL Routine 12/29/2018 10:40 AM Res ults for this [facility] procedure are i n the results section. HEMOGLOBIN Routine 12/29/2018 10:40 AM Results for this [facility] procedure are i n the results section. NM CARDIAC PET Routine 11/26/2018 3:00 PM PAD (peripheral Res ults for this PERFUSION REST AND/OR CDT artery disease) pro cedure are in STRESS ([facility]) the results Type 2 diabetes section. mellitus without complication, unspecified whether alf insulin use ([facility]) Atherosclerosis of [place] coronary artery of [place] heart, angina presence unspecified TREADMILL Routine 11/26/2018 [...] 520 ms QTC Calculation(Bazett) 514 ms P [place] 72 degrees R [place] 37 degrees T [place] 61 degrees Sinus bradycardia with 1st d egree A-V block Septal infarct , age undeter mined Abnormal ECG after 11/15/2018 Results RHYTHM STRIP - SCAN (01/20/2019 12:50 PM [facility])Only the most recent of3 results within the time period is included. Narrative Performed At This result has an attachment that is no t available. POC-Glucose meter (01/16/2019 11:28 AM [facility]ED [facility])Only the most recent of32 results within the time period is included. POC-Glucose Meter 100Comment: : TESTED AT 70 - 110 mg/dL [facility] [address] [facility], [id number]: Echocardiography Radiology Technologist/Sludge Filtration Attendant ID = [id number] for MONIQUE, ERANDY Specimen Blood Performing Organization Address City/State/Zipcode Phone Number [facility] [address] [place] [address] CENTER Manual Differential (01/16/2019 4:23 AM SHED HAND) % Neutros 59 % [facility] % Lymphs 25 % [facility] % Monos 9 % [facility] % Eos 1 % [facility] % Myelo 1 (H) 0 - 0 % [facility] % Bands 4 0 - 10 % [facility] # Neutros 3.89 1.56 - 6.13 K/ul [facility] # Lymphs 1.65 1.18 - 3.74 K/ul [facility] # Monos 0.59 (H) 0.24 - 0.36 K/uL [facility] # Eos 0.07 0.04 - 0.36 K/uL [facility] # Myelo 0.07 (H) 0.00 - 0.00 K/uL [facility] # Bands 0.26 0.00 - 0.80 K/uL [facility] Total Counted 100 [facility] Platelet Morphology Normal [facility] Hypersegmented Neutrophils Present [facility] Hypochromia 1+ few [facility] An[facility]ocytosis 1+ few [facility] Macrocytes 1+ few [facility] Artifact Present [facility] Platelet Conc Adequate [facility] Specimen Blood Narrative Performed At Received comment: [facility] User comments: Slide comments: Performing Organization Address City/[facility] Centercode Phone Number [facility] [address] [place] [address] [place] CBC with platelet count + automated diff (01/16/2019 4:23 AM [facility])Only the most recent of8 resultswithin the time period is included. WBC 6.6 3.5 - 10.5 K/L [facility] RBC 2.77 (L) 3.93 - 5.22 M/L [facility] Hemoglobin 8.2 (L) 11.2 - 15.7 GM/DL [facility] Hematocrit 26.6 (L) 34.1 - 44.9 % [facility] MCV 96.0 (H) 79.4 - 94.[address] [facility] MCH 29.6 25.6 - 32.[address] [facility] MCHC 30.8 (L) 32.2 - 35.5 GM/DL [facility] RDW 14.9 (H) 11.7 - 14.4 % [facility] Platelets 202 150 - 450 K/CU MM [facility] MPV 11.4 9.4 - 12.3 fL [facility] nRBC 0 0 - 0 /100 WBC [facility] Specimen Blood Performing Organization Address City/[facility]/Zipcode Phone Number [facility] [address] [place] [address] [place] Basic Metabolic Panel (01/16/2019 4:23 AM SHED [facility])Only the most recent of7 results within the time period is included. Sodium 142 136 - 145 meq/L [facility] Potassium 4.0 3.5 - 5.1 meq/L [facility] Chloride 112 (H) 98 - 107 meq/L [facility] CO2 25 22 - 29 meq/L [facility] BUN 13 7 - 21 mg/dL [facility] Creatinine 1.28 (H) 0.57 - 1.25 mg/dL [facility] Glucose 89 70 - 105 mg/dL [facility] Calcium 8.9 8.4 - 10.2 mg/dL ON LICENSE OF [facility] EGFR 50Comment: ESTIMATED GFR IS mL/min/1.73 sq m [facility] NOT ACCURATE CREATININE [facility] CLEARANCE IN PREDICTING GLOMERULAR FILTRATION RATE. ESTIMATED GFR IS NOT APPLICABLE FOR DIALYSIS PATIENTS. Specimen Blood Performing Organization Address City/State/Zipcode Phone Number [facility] [address] [place] [address] CENTER US renal complete (01/11/2019 8:59 AM SHED [facility]) Specimen Narrative Performed At FINAL REPORT [employer] TECHNIQUE: Grayscale ultrasound of the k idneys [...] MD Report Verified Date/Time:01/11/2019 10:37:05 Reading Location: [facility] C013Y CT Body R eading Room Procedure Note Interface, External Ris In - 01/11/2019 10:39 AM [facility]ED [facility] FINAL REPORT TECHNIQUE: Grayscale ultrasound of the [...] Verified Date/Time: 01/11/2019 1 0:37:05 Reading Location: [facility] C013Y CT Body R eading Room Performing Organization Address City/State/Zipcode Phone Number [facility] Phosphorus (01/11/2019 4:15 AM SHED [facility])Only the most recent of4 resultswithin the time period is included. Phosphorus 2.8 2.3 - 4.7 mg/dL [facility] Specimen Blood Performing Organization Address City/[facility]/Zipcode Phone Number [address] [address] CENTER Magnesium (01/11/2019 4:15 AM SHED [facility])Only the most recent of4 resultswithin the time period is included. Magnesium 1.9 1.6 - 2.6 mg/dL [facility] Specimen Blood Performing Organization Address City/[facility] Centercode Phone Number [address] [address] CENTER PTH, intact (01/10/2019 2:55 PM SHED HAND) PTH 200.6 (H) 8.5 - 72.5 pg/mL [facility] Specimen Blood Performing Organization Address [facility]/Zipcode Phone Number [address] [address] CENTER Uric acid (01/10/2019 5:04 AM SHED [facility]) Uric Acid 7.3 (H) 2.6 - 7.2 mg/dL [facility] Specimen Blood Performing Organization Address City/[facility]/Zipcode Phone Number [address] [address] [place] TRANSFUSION SERVICE REPORT - SCAN (01/08/2019 5:54 PM SHED [facility])Only the most recent of2 resultswithin the time period is included. Narrative Performed At This result has an attachment that is no t available. PT/aPTT (01/08/2019 4:36 PM SHED [facility]) Protime 15.7 (H) 11.9 - 14.[address] [facility] INR 1.3 <=5.9 [facility] PTT 34.4 22.5 - 36.[address] [facility] Specimen Blood Narrative Performed At Effective 07/16/2018: PT Reference Range [facility] Change New: 11.9-14.2Previous: 11.7-14.7 RECOMMENDED COUMADIN/WARFARIN INR THERAPY RANGES STANDARD DOSE: 2.0-3.0Includes: PROPHYLAXIS for venous thrombosis, systemic embolization; TREATMENT for venous thrombosis and/or pulmonary embolus. HIGH RISK: Target INR is 2.5-3.5 for patients wiht mechanical heart valves. Performing Organization Address [facility] Centercode Phone Number [address] [address] [place] POC ACTIVATED CLOTTING TIME (01/08/2019 1:08 PM SHED HAND)Only the most recent of2 resultswithin the time period is included. Activated Clotting Time 274Comment: Reference sec [facility] Range: 74-137 seconds, [facility] Baseline/TESTED AT [address] [address] Specimen Blood Performing Organization Address City/[facility]/Zipcode Phone Number [address] [address] [place] Prepare RBC (01/07/2019 7:14 PM SHED [facility]) Unit ABO O Pos SAFETRACE TX UNIT NUMBER [id number] SAFETRACE TX Status READY SAFETRACE TX Blood Bank Product RED BLOOD CELLS SAFETRACE TX PRODUCT CODE [id number] SAFETRACE TX Unit ABO O Pos SAFETRACE TX UNIT NUMBER [id number] SAFETRACE TX Status READY SAFETRACE TX Blood Bank Product RED BLOOD CELLS SAFETRACE TX PRODUCT CODE [id number] SAFETRACE TX CROSSMATCH COMPATIBLE SAFETRACE TX CROSSMATCH COMPATIBLE SAFETRACE TX Performing Organization Address [facility] Phone Number SAFETRACE TX Type and screen, automated (12/29/2018 10:40 AM SHED [facility]) ABO/RH AUTOMATED (BEAKER) O POSITIVE [facility] Ab Scrn NEGATIVE [facility] Specimen Blood Performing Organization Address [facility] Phone Number [address] [address] BUN and Creatinine (12/29/2018 10:40 AM SHED [facility]) BUN 26 (H) 7 - 21 mg/dL [facility] Creatinine 1.83 (H) 0.57 - 1.25 mg/dL [facility] EGFR 33Comment: ESTIMATED GFR IS mL/min/1.73 sq m [facility] NOT ACCURATE CREATININE [facility] CLEARANCE IN PREDICTING GLOMERULAR FILTRATION RATE. ESTIMATED GFR IS NOT APPLICABLE FOR DIALYSIS PATIENTS. Specimen Blood Performing Organization Address [facility] Phone Number [address] [address] CENTER Platelet count (12/29/2018 10:40 AM SHED HAND) Platelets 112 (L) 150 - 450 K/CU MM [facility] Specimen Blood Performing Organization Address [facility] Centercode Phone Number [address] [address] CENTER Hemoglobin (12/29/2018 10:40 AM SHED HAND) Hemoglobin 13.1 11.2 - 15.7 GM/DL [facility] Specimen Blood Performing Organization Address City/[facility]/Zipcode Phone Number [address] [id number] [place] Glucose (12/29/2018 10:40 AM SHED HAND) Glucose 134 (H) 70 - 105 mg/dL [facility] Specimen Blood Performing Organization Address City/[facility]/Zipcode Phone Number [address] [address] [place] Electrolytes (12/29/2018 10:40 AM SHED HAND) Sodium 138 136 - 145 meq/L [facility] Potassium 4.7 3.5 - 5.1 meq/L [facility] Chloride 107 98 - 107 meq/L [facility] CO2 26 22 - 29 meq/L [facility] Specimen Blood Performing Organization Address City/[facility]/Zipcode Phone Number [address] [address] [place] NM myocardial perfusion PET (rest and stress) (11/26/2018 3:00 PM CDT) Specimen Narrative Performed At FINAL REPORT [employer] [facility] PROCEDURE: MYOCARDIAL PERFUSION PET IMAG ING (Rest/Stress) CPT CODE: 50288 INDICATION: Known CAD CARDIOVASCULAR PROFILE: CAD History: [...] MD Report Verified Date/Time:11/26/2018 16:17:24 Reading Location: [address] Med Reading Room Procedure Note Interface, External Ris In - 11/26/2018 4:56 PM CDT FINAL REPORT PROCEDURE: MYOCARDIAL PERFUSION PET IMAG ING (Rest/Stress) CPT CODE: [id number] INDICATION: Known CAD CARDIOVASCULAR PROFILE: CAD History: [...] Verified Date/Time: 11/26/2018 1 6:17:24 Reading Location: [address] Reading Room Performing Organization Address City/State/Zipcode [...] External Ris In - 01/12/2019 12:40 PM SHED HAND Protocol Name Regadenoson Time In Exercise Phase [...] 3:43:08 PM Confirmed by MD GALLO JORGE ([id number]) on 01/12/2019 12:40:38 PM Performing Organization Address City/[facility] [place] Phone Number GE MUSE ECG 12 lead (11/26/2018 2:30 PM CDT) Specimen Narrative Performed At Ventricular Rate 59 BPM GE MUSE Atrial Rate 59 BPM P-R Interval 242 ms QRS Duration 120 ms Q-T Interval 520 ms QTC Calculation(Bazett) 514 ms P [place] 72 degrees R [place] 37 degrees T [place] 61 degrees Sinus bradycardia with 1st degree [...] 520 ms QTC Calculation(Bazett) 514 ms P [place] 72 degrees R [place] 37 degrees T [place] 61 degrees Sinus bradycardia with 1st degree A-V bl ock Septal infarct , age undetermined Abnormal ECG Confirmed by MD Phillips Mahboob ([id number]) on 11/27/2018 12:11:21 PM Performing Organization Address City/[facility] [place] Phone Number [employer] MUSE after 11/15/2018 Insurance Payer Benefit Plan / Group Subscriber ID Type Phone A ddress HU[employer] - MEDICARE MGD HU[employer]NA MEDICARE ADV xxxxxxxxx Maps Contracted CARE Advance Directives For more information, please contact:[address] [phone] Code Status Date Activated Date Inactivated Comments [...]
--- OUTSIDE RECORDS SUMMARY | 2019-11-16 21:09 | XMS REPORT | Continuity of Care Document ---
:1945 Author Organization [facility] t Address [address] [place] [address] Care Team Providers Name Role Phone Martin Cook Primary Care Physician Unavailable Franki VILLAGOMEZ Attending Clinician Franki VILLAGOMEZ Attending Clinician Erlinda Hair Attending Clinician Unavailable FRANKI Attending Clinician Unavailable Pritesh Mancia MD Attending Clinician Gavino VILLAGOMEZ Attending Clinician FRANKI Admitting Clinician Unavailable Payers Payer Name Policy Type Policy Number Effective Date Expiration Source Date HUMANA - MEDICARE MGD x[facility] Problems Condition Condition Condition Status Onset Resolution Last Treating Co mments Source Name Details Category Date Date Treatment Clinician Date 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 [place]:[facility] Medical arteries arteries 00 Center of [...] Alcohol [facility] St[facility] Dr[facility] History SDOH Alcohol [facility] Binge [facility] Sex Assigned At [facility] St kes - [facility] History SDOH Alcohol 2018-05-28 2018-05-[address] [facility] - Frequency 00:00:00 00:00:00 Medical Center Smoking Status Start Date Stop Date Source Never smoker [facility] Medications [...] MG 13:34: mouth Medical tablet 15 daily. [place] Vital Signs Vital Name Observation Time Observation Value Comments Source Systolic blood 2019-01-16 15:00:00 123 mm[Hg] [facility] Diastolic blood 2019-01-16 15:00:00 75 mm[Hg] [facility] Heart rate 2019-01-16 15:00:00 61 /min [facility] Body temperature 2019-01-16 15:00:00 36.11 Michela [facility] Respiratory rate 2019-01-16 15:00:00 17 /min [facility] Oxygen saturation in 2019-01-16 15:00:00 100 /min [facility] Arterial blood by Medical Ce nter Pulse oximetry Body weight Measured 2019-01-16 09:00:00 97.75 kg [facility] BMI 2019-01-16 09:00:00 36.99 kg/m2 [facility] Body height 2019-01-08 05:35:00 162.6 cm [facility] Procedures Procedure Date / Time Performed Performing Clinician Leslie patel RHYTHM STRIP - SCAN 2019-01-20 12:50:46 Provider, Default [facility] RHYTHM STRIP - SCAN 2019-01-20 12:50:22 Provider, [facility] RHYTHM STRIP - SCAN 2019-01-20 12:42:24 Provider, [facility] POCT-GLUCOSE METER 2019-01-16 11:28:[facility] 2019-01-16 08:16:00 Franki [facility] BASIC METABOLIC PANEL 2019-01-16 04:23:00 Richie Manley [facility] - (7) [facility] CBC W/PLT COUNT & AUTO 2019-01-16 04:23:00 Richie Manley [facility] - DIFFERENTIAL [facility] (CELLAVISION MANUAL 2019-01-16 04:23:00 Richie Manley [facility] - DIFF) [facility] POCT-GLUCOSE METER 2019-01-15 20:16:00 Franki [facility] POCT-GLUCOSE METER 2019-01-15 17:00:00 Franki [facility] POCT-GLUCOSE METER 2019-01-15 12:49:00 Franki [facility] POCT-GLUCOSE METER 2019-01-15 08:33:00 Franki [facility] POCT-GLUCOSE METER 2019-01-14 20:56[facility]SE METER 2019-01-14 16:35:00 Franki [facility] POCT-GLUCOSE METER 2019-01-14 12:35:00 Franki [facility] POCT-GLUCOSE METER 2019-01-14 07:41:00 Franki [facility] POCT-GLUCOSE METER 2019-01-13 21:22:00 Franki [facility] POCT-GLUCOSE METER 2019-01-13 16:59:00 [facility] POCT-[facility]UCOSE METER 2019-01-13 12:32:00 [facility] POCT-GLUCOSE METER 2019-01-13 07:44:00 [facility] BASIC METABOLIC PANEL 2019-01-13 05:47:00 Richie Manley [facility] Jose Armando Soledaddanny ([address] [place] [address] CBC W/PLT COUNT & AUTO 2019-01-13 05:47:[address] [facility] DIFFERENTIAL [facility] POCT-GLUCOSE METER 2019-01-12 21:24:00 [facility] POCT-GLUCOSE METER 2019-01-12 19:08:00 Franki [facility] POCT-GLUCOSE METER 2019-01-12 17:14:00 [facility] POCT-GLUCOSE METER 2019-01-12 09:19:00 [facility] BASIC METABOLIC PANEL 2019-01-12 04:14:00 Richie Manley [facility] Jose Armando Soledadkes - ([address] [place] [address] CBC W/PLT COUNT & AUTO 2019-01-12 04:14:00 Richie Manley [facility] POCT-GLUCOSE METER 2019-01-11 20:47:00 [facility] POCT-GLUCOSE METER 2019-01-11 16:56:00 [facility] POCT-GLUCOSE METER 2019-01-11 11:56:00 [facility] POCT-GLUCOSE METER 2019-01-11 09:10:00 [facility] US RENAL COMPLETE 2019-01-11 08:59:00 Beny Banks [facility] BASIC METABOLIC PANEL 2019-01-11 04:15:00 Patrick Raman Agee [facility] (7) [facility] MAGNESIUM 2019-01-11 04:15:00 Patrick Raman [facility] PHOSPHORUS 2019-01-11 04:15:00 Patrick [facility] CBC W/PLT COUNT & AUTO 2019-01-11 04:15:00 [facility] PO[facility]UCOSE METER 2019-01-10 22:14:00 Franki [facility] POCT-GLUCOSE METER 2019-01-10 16:52:00 Franki [facility] PTH, INTACT 2019-01-10 14:55:00 Darren [facility] CBC W/PLT COUNT & AUTO 2019-01-10 14:55:00 Patrick [facility] POCT-GLUCOSE METER 2019-01-10 11:41:00 Franki [facility] POCT-GLUCOSE METER 2019-01-10 09:30:00 Franki [facility] BASIC METABOLIC PANEL 2019-01-10 05:04:[address] [facility] - (7) [facility] MAGNESIUM 2019-01-10 05:04:00 Patrick [facility] PHOSPHORUS 2019-01-10 05:04:00 Patrick [facility] URIC ACID 2019-01-10 05:04:00 Darren [facility] POCT-GLUCOSE METER 2019-01-09 21:22:00 Franki [facility] POCT-GLUCOSE METER 2019-01-09 17:05:00 Franki [facility] POCT-GLUCOSE METER 2019-01-09 12:06:00 Franki [facility] POCT-GLUCOSE METER 2019-01-09 07:40:00 Franki [facility] BASIC METABOLIC PANEL 2019-01-09 03:45:[address] [facility] (7) [facility] MAGNESIUM 2019-01-09 03:45:00 Patrick [facility] PHOSPHORUS 2019-01-09 03:45:00 Manisjordana [facility] CBC W/PLT COUNT & AUTO 2019-01-09 03:11:00 Manisundaram, [facility] TRANSFUSION SERVICE 2019-01-08 17:54:33 Provider, Carly [facility] REPORT - SCAN [facility] POCT-GLUCOSE METER 2019-01-08 16:43:00 Franki [facility] BASIC METABOLIC PANEL 2019-01-08 16:36:00 Endy Alexis [address] PT/APTT 2019-01-08 16:36:00 Endy Alexis [facility] MAGNESIUM 2019-01-08 16:36:00 Randytiburcionavamarie [facility] PHOSPHORUS 2019-01-08 16:36:00 [facility] W/[facility]T COUNT & AUTO 2019-01-08 16:36:00 [facility] POCT-ACT 2019-01-08 13:08[facility] 2019-01-08 12:08:00 [facility] BYPASS,FEMORAL-PERONEAL 2019-01-08 07:30:00 [facility] HARVEST,VEIN 2019-01-08 07:30:00 [facility] CBC W/PLT COUNT & AUTO 2019-01-08 06:39:00 Franki [facility] POCT-GLUCOSE METER 2019-01-08 06:01:00 Franki [facility] PREPARE RBC 2019-01-07 19:14:[facility] 2018-12-30 17:55:33 Provider, Carly [facility] HEMOGLOBIN 2018-12-29 10:40:00 Buddy Garcia [facility] ELECTROLYTE PANEL 2018-12-29 10:40:00 Buddy Garcia [facility] BUN AND CREATININE 2018-12-29 10:40:00 Buddy Garcia [facility] PLATELET COUNT 2018-12-29 10:40:00 Buddy Garcia [facility] GLUCOSE 2018-12-29 10:40:00 Buddy Garcia [facility] TYPE AND SCREEN, 2018-12-29 10:40:00 Buddy Garcia [facility] NM CARDIAC PET PERFUSION 2018-11-26 15:00:00 Michael Mancia [facility] - REST AND/OR STRESS Medical Cente r TREADMILL 2018-11-26 14:31:41 Unknown, Hl7 [facility] - TOLERANCE(NON-NUCLEAR Medical Ce nter TREADMILL) ECG 12-LEAD 2018-11-26 14:30:31 Unknown, Hl7 [facility] Encounters Start End Encounter Admission Attending Care Care Encounter Source Date/Time Date/Time Type Type Clinicians Facility Department ID 2019-08-26 2019-08-26 Office KWAME Doan [id number] 09:32:20 11:46:44 Visit Jamauri AMBULATOR 350.1.13.21 Y 0.2.7.2.686 [id number] 2019-05-27 2019-05-27 Office KWAME Doan [id number] 09:13:18 12:39:17 Visit Jayer AMBULATOR 350.1.13.21 Y 0.2.7.2.686 [id number] 2019-03-18 2019-03-18 Office KWAME Doan [id number] 08:40:49 09:39:44 Visit Jayer AMBULATOR 350.1.13.21 Y 0.2.7.2.686 [id number] 2019-03-04 2019-03-04 Office KWAME Doan [id number] 09:20:10 11:54:55 Visit Jayer AMBULATOR 350.1.13.21 Y 0.2.7.2.686 [id number] 2018-11-17 2018-11-17 Office Michael Mancia [id number] 15:58:42 16:43:42 Visit AMBULATOR 350.1.13.21 Y 0.2.7.2.686 [id number] Results Test Description Test Time Test Comments Results Result Comments Source POC-Glucose meter 2019-01-16 11:39:00 Test Item Value Reference Range Interpretation Comme nts POC-Glucose Meter (test code = 100 mg/dL 70-110 : TESTED AT [facility] [address] 1538) [facility], 770 30: Care Trainer/Techni charo ID = [id number] for BOZENA MONIQUE Lab Interpretation (test code = Normal 97153-0) [facility] [id number] 11:39:00 Test Item Value Reference Range Interpretation Comments POC-GLUCOSE METER 100 mg/dL 70-110 : TESTED A T [facility] [address] (BEAKER) (test code = BERTNE R [facility], 1538) [address]: Care Trainer/Techni charo ID = [id number] for BOZENA GEORGE CBC with platelet count + automated [id number] 10:30:00 Test Item Value Reference Range Interpretation [...] 450 K/CU MM MPV (test code = 61424-5) 11.4 fL 9.4-12.3 nRBC (test code = 413) 0 0- 0 /100 WBC Lab Interpretation (test code = Abnormal 09368-0) [facility] [id number] 10:30:00 Test Item Value Reference Range Interpretation [...] comments: Lab Interpretation (test Abnormal code = 76430-3) [facility] W/PLT COUNT & AUTO [id number] 10:30:00 Test Item Value Reference Range Interpretation [...] 3438) Received comment: User comments: Slide comments:POCT-GLUCOSE [id number] 08:27:00 Test Item Value Reference Range Interpretation Comments POC-GLUCOSE METER 90 mg/dL 70-110 : TESTED A T [facility] [address] (BEAKER) (test code = [facility] [place], 1538) [address]: Care Trainer/Techni charo ID = [id number] for LISA HERRERA BOZENA Basic Metabolic [id number] 05:15:00 Test Item Value Reference Range Interpretation Comments Sodium (test code = 142 meq/L 496-227 4243-2) Potassium (test code = 4.0 meq/L 3.5-5.1 2823-3) Chloride (test code = 112 meq/L 98-107 H 2075-0) CO2 (test code = 25 meq/L 22-29 2028-9) BUN (test code = 13 mg/dL 7-21 3094-0) Creatinine (test code = 1.28 mg/dL 0.57-1.25 H 2160-0) Glucose (test code = 89 mg/dL 70-105 2345-7) Calcium (test code = 8.9 mg/dL 8.4-10.2 42075-5) EGFR (test code = 50 mL/min/1.73 [place] [address]-6) NOT ACCURATE CREATININE CLEARANCE IN PREDICTING GLOMERULAR FILTRATION RATE . ESTIMATED GFR I S NOT APPLICABLE FOR DIALYSIS PATIEN TS. Lab Interpretation Abnormal (test code = 26439-8) [facility] METABOLIC [id number] 05:15:00 Test Item Value Reference Range Interpretation [...] NOT APPLICABLE FOR DIALYSIS PATIEN TS. POCT-GLUCOSE [id number] 20:27:00 Test Item Value Reference Range Interpretation Comments POC-GLUCOSE METER 119 mg/dL 70-110 H : TESTED A T [facility] 67[address] (BEAKER) (test code = [facility], 1538) [address]: Care Trainer/Techni charo ID = [id number] for Go Jeffery peters POCT-GLUCOSE [id number] 17:11:00 Test Item Value Reference Range Interpretation Comments POC-GLUCOSE METER 122 mg/dL 70-110 H : TESTED A T [facility] 6720 (BEAKER) (test code = [facility] [employer] [facility], 1538) [address]: Care Trainer/Techni charo ID = [id number] for Ec at, Cecella POCT-GLUCOSE [id number] 13:01:00 Test Item Value Reference Range Interpretation Comments POC-GLUCOSE METER 113 mg/dL 70-110 H : TESTED A T [facility] 6720 (BEAKER) (test code = [facility] [employer] [facility], 1538) [address]: Care Trainer/Techni charo ID = [id number] for NICO NORIEGA CHIRY POCT-GLUCOSE [id number] 08:45:00 Test Item Value Reference Range Interpretation Comments POC-GLUCOSE METER 98 mg/dL 70-110 : TESTED A T [facility] 6720 (BEAKER) (test code = [facility], [facility]) [address]4436: Care Trainer/Techni charo ID = [id number] for ANA GAGNON POCT-GLUCOSE [id number] 21:07:00 Test Item Value Reference Range Interpretation Comments POC-GLUCOSE METER 84 mg/dL 70-110 : TESTED A T [facility] 6720 (BEAKER) (test code = [facility], [facility]) 21547: Care Trainer/Techni charo ID = [id number] for Pk Hammonds POCT-GLUCOSE [id number] 16:47:00 Test Item Value Reference Range Interpretation Comments POC-GLUCOSE METER 108 mg/dL 70-110 : TESTED A T [facility] 6720 (BEAKER) (test code = [facility], [facility]) 01540: Care Trainer/Techni charo ID = [id number], Hiwitha POCT-GLUCOSE [id number] 15:12:00 Test Item Value Reference Range Interpretation Comments POC-GLUCOSE METER 118 mg/dL 70-110 H : TESTED A T [facility] 6720 (BEAKER) (test code = [facility], [facility]) 40812: Care Trainer/Techni charo ID = [id number] for DA VIS, RODGER POCT-GLUCOSE [id number] 15:04:00 Test Item Value Reference Range Interpretation Comments POC-GLUCOSE METER 127 mg/dL 70-110 H : TESTED A T [facility] 6720 (BEAKER) (test code = [facility], [facility]) 84264: Care Trainer/Techni charo ID = [id number] for HU NTER, HIWITHA POCT-GLUCOSE [id number] 14:34:00 Test Item Value Reference Range Interpretation Comments POC-GLUCOSE METER 89 mg/dL 70-110 : TESTED A T [facility] 6720 (BEAKER) (test code = [facility], [facility]) 86506: Care Trainer/Techni charo ID = [id number] for BATEMAN ER, HIWITHA POCT-GLUCOSE [id number] 13:53:00 Test Item Value Reference Range Interpretation Comments POC-GLUCOSE METER 137 mg/dL 70-110 H : TESTED A T [facility] 6720 (BEAKER) (test code = [facility], 1538) 26812: Care Trainer/Techni charo ID = [id number] for Cici Isaacs POCT-GLUCOSE [id number] 12:44:00 Test Item Value Reference Range Interpretation Comments POC-GLUCOSE METER 125 mg/dL 70-110 H : TESTED A T [facility] 6720 (BEAKER) (test code = [facility], 1538) 79250: Care Trainer/Techni charo ID = [id number] for OC CRUZ POCT-GLUCOSE [id number] 08:33:00 Test Item Value Reference Range Interpretation Comments POC-GLUCOSE METER 112 mg/dL 70-110 H : TESTED A T [facility] 67[address] (BEAKER) (test code = [facility], 1538) 36268: Care Trainer/Techni charo ID = [id number] for ANA PALACIO POCT-GLUCOSE [id number] 07:56:00 Test Item Value Reference Range Interpretation Comments POC-GLUCOSE METER 96 mg/dL 70-110 : TESTED A T [facility] 6720 (BEAKER) (test code = [facility], 1538) 39237: Care Trainer/Techni charo ID = [id number] for Compa ortiz Danica BASIC METABOLIC [id number] 07:07:00 Test Item Value Reference Range Interpretation [...] PATIEN TS. CBC W/PLT COUNT & AUTO [id number] 06:52:00 Test Item Value Reference Range Interpretation [...] IMMATURE GRANULOCYTES-RELATIVE 2 % 0-1 H PERCENT (MACIAKER) (test code = 2801) POCT-GLUCOSE [id number] 21:36:00 Test Item Value Reference Range Interpretation Comments POC-GLUCOSE METER 143 mg/dL 70-110 H : TESTED A T [facility] 6720 (DAYO) (test code = [facility] [employer] [facility], 1538) 55[address]: Care Trainer/Techni charo ID = [id number] for DA VIS, RODGER POCT-GLUCOSE [id number] 19:20:00 Test Item Value Reference Range Interpretation Comments POC-GLUCOSE METER 117 mg/dL 70-110 H : TESTED A T [facility] 6720 (MACINo Paper Just Vapor) (test code = [facility], 1538) 13754: Care Trainer/Techni charo ID = [id number] for DA VIS, RODGER Treadmill tolerance(Non-Nuclear Treadmill)2019-01-12 [...] by MD GALLO JORGE ([id number])on 01/12/2019 12:40:38 [facility] [id number] 09:30:00 Test Item Value Reference Range Interpretation Comments POC-GLUCOSE METER 100 mg/dL 70-110 : TESTED A T [facility] 6720 (Pro Breath MD) (test code = [facility], 1538) 24657: Care Trainer/Techni charo ID = [id number] for ANA PALACIO BASIC METABOLIC [id number] 05:18:00 Test Item Value Reference Range Interpretation [...] PATIEN TS. CBC W/PLT COUNT & AUTO [id number] 04:37:00 Test Item Value Reference Range Interpretation [...] PERCENT (BEAKER) (test code = 2801) POCT-GLUCOSE [id number] 20:59:00 Test Item Value Reference Range Interpretation Comments POC-GLUCOSE METER 95 mg/dL 70-110 : TESTED A T [facility] 6720 (BEAKER) (test code = [facility], 153) 85386: Care Trainer/Techni charo ID = [id number] for WALE Suárez RODGER POCT-GLUCOSE [id number] 17:08:00 Test Item Value Reference Range Interpretation Comments POC-GLUCOSE METER 90 mg/dL 70-110 : TESTED A T [facility] 6720 (BEAKER) (test code = [facility], 153) 25362: Care Trainer/Techni charo ID = [id number] for BELLE CHAPA POCT-GLUCOSE [id number] 12:10:00 Test Item Value Reference Range Interpretation Comments POC-GLUCOSE METER 118 mg/dL 70-110 H : TESTED A T [facility] 6720 (DAYO) (test code = [facility] [place], 1538) [address]: Care Trainer/Techni charo ID = [id number] for OD BELLE MENDOZA U/S, RENAL, [id number] 10:37:00Reason for exam:->ckdFINAL REPORT TECHNIQUE: Grayscale ultrasound [...] MDReport Verified Date/Time: 01/11/2019 10:37:05 Reading Location: [address] Body Reading Room US renal [id number] 10:37:00Interface, External Ris In - 01/11/2019 10:39 [...] MDReport Verified Date/Time: 01/11/2019 10:37:05 Reading Location: [address] [facility] [id number] 09:22:00 Test Item Value Reference Range Interpretation Comments POC-GLUCOSE METER 75 mg/dL 70-110 : TESTED A T [facility] 67[address] (BEAKER) (test code = [facility] [place], 1538) 36[address]: Care Trainer/Techni charo ID = [id number] for CICI DRISCOLL [id number] 04:57:00 Test Item Value Reference Range Interpretation Comments Magnesium (test code = 05334-6) 1.9 mg/dL 1.6-2.6 Lab Interpretation (test code = Normal 45523-6) [facility] 04:57:00 Test Item Value Reference Range Interpretation Comments Phosphorus (test code = 2777-1) 2.8 mg/dL 2.3-4.7 Lab Interpretation (test code = Normal 66981-1) [facility]2019-11-24 04:57:00 Test Item Value Reference Range Interpretation Comments PHOSPHORUS (BEAKER) (test code = 2.8 mg/dL 2.3-4.7 604) [id number] 04:57:00 Test Item Value Reference Range Interpretation Comments MAGNESIUM (BEAKER) (test code = 1.9 mg/dL 1.6-2.6 627) BASIC METABOLIC [id number] 04:57:00 Test Item Value Reference Range Interpretation [...] PATIEN TS. CBC W/PLT COUNT & AUTO [id number] 04:32:00 Test Item Value Reference Range Interpretation [...] PERCENT (BEAKER) (test code = 2801) POCT-GLUCOSE [id number] 22:26:00 Test Item Value Reference Range Interpretation Comments POC-GLUCOSE METER 95 mg/dL 70-110 : TESTED A T [facility] 6720 (BEAKER) (test code = [facility], 1538) 90127: Care Trainer/Techni charo ID = [id number] for Beena Reed POCT-GLUCOSE [id number] 17:04:00 Test Item Value Reference Range Interpretation Comments POC-GLUCOSE METER 98 mg/dL 70-110 : TESTED A T [facility] 6720 (BEAKER) (test code = [facility], 1538) 71154: Care Trainer/Techni charo ID = [id number] for XOCHILTDAYTON BELLE RUTLEDGE PTH, [id number] 16:02:00 Test Item Value Reference Range Interpretation Comments PTH (test code = 2731-8) 200.6 pg/mL 8.5-72.5 H Lab Interpretation (test code = Abnormal 44935-8) [facility], [id number] 16:02:00 Test Item Value Reference Range Interpretation Comments PARATHYROID HORMONE INTACT 200.6 pg/mL 8.5-72.5 H (BEAKER) (test code = 577) CBC W/PLT COUNT & AUTO [id number] 15:09:00 Test Item Value Reference Range Interpretation [...] PERCENT (BEAKER) (test code = 2801) POCT-GLUCOSE [id number] 11:53:00 Test Item Value Reference Range Interpretation Comments POC-GLUCOSE METER 132 mg/dL 70-110 H : TESTED A T [facility] 6720 (BEAKER) (test code = [facility] [place], 1538) 38155: Care Trainer/Techni charo ID = [id number] for Cici Isaacs POCT-GLUCOSE [id number] 09:42:00 Test Item Value Reference Range Interpretation Comments POC-GLUCOSE METER 112 mg/dL 70-110 H : TESTED A T [facility] 6720 (BEAKER) (test code = JOSE G James [facility], 1538) 60784: Care Trainer/Techni charo ID = [id number] for Cici Isaacs Uric [id number] 09:14:00 Test Item Value Reference Range Interpretation Comments Uric Acid (test code = 3084-1) 7.3 mg/dL 2.6-7.2 H Lab Interpretation (test code = Abnormal 09148-4) [facility] [id number] 09:14:00 Test Item Value Reference Range Interpretation Comments URIC ACID (BEAKER) (test code = 7.3 mg/dL 2.6-7.2 H 773) [id number] 06:14:00 Test Item Value Reference Range Interpretation Comments PHOSPHORUS (BEAKER) (test code = 2.8 mg/dL 2.3-4.7 604) [id number] 06:14:00 Test Item Value Reference Range Interpretation Comments MAGNESIUM (BEAKER) (test code = 1.9 mg/dL 1.6-2.6 627) BASIC METABOLIC [id number] 06:14:00 Test Item Value Reference Range Interpretation [...] NOT APPLICABLE FOR DIALYSIS PATIEN TS. POCT-GLUCOSE [id number] 21:33:00 Test Item Value Reference Range Interpretation Comments POC-GLUCOSE METER 113 mg/dL 70-110 H : TESTED A T [facility] 6720 (BEAKER) (test code = [facility], 1538) 45572: Care Trainer/Techni charo ID = [id number] for RODGER JONES POCT-GLUCOSE [id number] 17:16:00 Test Item Value Reference Range Interpretation Comments POC-GLUCOSE METER 113 mg/dL 70-110 H : TESTED A T [facility] 6720 (BEAKER) (test code = [facility], 1538) 95331: Care Trainer/Techni charo ID = [id number] for RIDDHI AGUILAR POCT-GLUCOSE [id number] 12:17:00 Test Item Value Reference Range Interpretation Comments POC-GLUCOSE METER 166 mg/dL 70-110 H : TESTED A T [facility] 6720 (BEAKER) (test code = [facility], 1538) [id number]: Care Trainer/Techni charo ID = [id number] for CHINTAN MCCLELLAND POCT-GLUCOSE [id number] 07:51:00 Test Item Value Reference Range Interpretation Comments POC-GLUCOSE METER 143 mg/dL 70-110 H : TESTED A T [facility] 6720 (BEAKER) (test code = [facility], 1538) 02595: Care Trainer/Techni charo ID = [id number] for Pe meaghan Neena [id number] 06:28:00 Test Item Value Reference Range Interpretation Comments MAGNESIUM (BEAKER) 1.8 mg/dL 1.6-2.6 Specimen slightly (test code = 627) hemolyzed [id number] 06:28:00 Test Item Value Reference Range Interpretation Comments PHOSPHORUS (BEAKER) 2.5 mg/dL 2.3-4.7 Specimen slightly (test code = 604) hemolyzed BASIC METABOLIC [id number] 06:28:00 Test Item Value Reference Range Interpretation [...] PATIEN TS. CBC W/PLT COUNT & AUTO [id number] 04:20:00 Test Item Value Reference Range Interpretation [...] 0-1 PERCENT (BEAKER) (test code = 2801) [id number] 17:40:00 Test Item Value Reference Range Interpretation Comments PHOSPHORUS (BEAKER) (test code = 3.3 mg/dL 2.3-4.7 604) [id number] 17:40:00 Test Item Value Reference Range Interpretation Comments MAGNESIUM (BEAKER) (test code = 1.8 mg/dL 1.6-2.6 627) BASIC METABOLIC [id number] 17:40:00 Test Item Value Reference Range Interpretation [...] S NOT APPLICABLE FOR DIALYSIS PATIEN TS. [id number] 17:03:00 Test Item Value Reference Range Interpretation Comments Protime (test code = 15.7 11.9- 14.2 H 5902-2) seconds INR (test code = 1.3 <=5.9 6301-6) PTT (test code = 34.4 22.5- 36.0 97645-4) seconds LINA (test code = LINA) Effective 07/16/2018: PT Reference Range ChangeNew: 11.9-14.2 Previous: 11.7-14.7 RECOMMENDED COUMADIN/WARFARIN INR THERAPY RANGESSTANDARD DOSE: 2.0-3.0 Includes: PROPHYLAXIS for venous thrombosis, systemic embolization; TREATMENT for venous thrombosis and/or pulmonary embolus.HIGH RISK: Target INR is 2.5-3.5 for patients wiht mechanical heart valves. Lab Interpretation Abnormal (test code = 41687-5) [id number] 17:03:00 Test Item Value Reference Range Interpretation [...] mechanical heart valves.CBC W/PLT COUNT & AUTO [id number] 16:56:00 Test Item Value Reference Range Interpretation [...] PERCENT (BEAKER) (test code = 2801) POCT-GLUCOSE [id number] 16:55:00 Test Item Value Reference Range Interpretation Comments POC-GLUCOSE METER 200 mg/dL 70-110 H : TESTED A T [place] [address] (BEAKER) (test code = [facility], 1538) [address]: Care Trainer/Techni charo ID = [id number] for JOSE DENNEY POC ACTIVATED CLOTTING [id number] 13:51:00 Test Item Value Reference Range Interpretation Comments Activated Clotting Time 274 sec Refe rence Range: 74-137 (test code = 441) seconds, B aseline/TESTED AT [place] [address] B [facility] 7703 0 [id number] 13:51:00 Test Item Value Reference Range Interpretation Comments ACTIVATED CLOTTING TIME 274 sec Refe rence Range: (BEAKER) (test code = 74-137 seconds, 441) Baseline/TESTED AT [place] [id number] [facility] 7703 0 [id number] 13:51:00 Test Item Value Reference Range Interpretation Comments ACTIVATED CLOTTING TIME 323 sec Refe rence Range: (BEAKER) (test code = 74-137 seconds, 441) Baseline/TESTED AT [place] [id number] [facility] 7703 0 CBC W/PLT COUNT & AUTO [id number] 07:44:00 Test Item Value Reference Range Interpretation [...] PERCENT (BEAKER) (test code = 2801) POCT-GLUCOSE [id number] 06:13:00 Test Item Value Reference Range Interpretation Comments POC-GLUCOSE METER 123 mg/dL 70-110 H : TESTED A T [facility] 6720 (BEAKER) (test code [facility], = 1538) [address]: Care Trainer/Techni charo ID = [id number] for [place] BLOOM Prepare [id number] 19:14:00 Test Item Value Reference Range Interpretation Comments Unit ABO (test code = O Pos 5622138) UNIT NUMBER (test code = [id number] 934-0) Status (test code = 0779876) READY Blood Bank Product (test code RED BLOOD CELLS = 2263) PRODUCT CODE (test code = A1451C35 933-2) CROSSMATCH (test code = 2264) COMPATIBLE [facility] and screen, [id number] 11:36:00 Test Item Value Reference Range Interpretation Comments ABO/RH AUTOMATED (BEAKER) (test O POSITIVE code = 2260) Ab Scrn (test code = 890-4) NEGATIVE [facility] CenterPlatelet [id number] 11:27:00 Test Item Value Reference Range Interpretation Comments Platelets (test code = 777-3) 112 150- 450 K/CU MM L Lab Interpretation (test code = Abnormal 51976-3) [facility] CenterPLATE[facility] [id number] 11:27:00 Test Item Value Reference Range Interpretation Comments PLATELET COUNT (BEAKER) (test 112 K/CU MM 150-450 L code = 756) [id number] 11:07:00 Test Item Value Reference Range Interpretation Comments Sodium (test code = 2951-2) 138 meq/L 136-145 Potassium (test code = 2823-3) 4.7 meq/L 3.5-5.1 Chloride (test code = 2075-0) 107 meq/L 98-107 CO2 (test code = 8-9) 26 meq/L 22-29 Lab Interpretation (test code = Normal 19540-5) [facility] Center[facility]ucose2019-11-11 11:07:00 Test Item Value Reference Range Interpretation Comments Glucose (test code = 2345-7) 134 mg/dL 70-105 H Lab Interpretation (test code = Abnormal 62834-7) [facility] CenterBUN and [id number] 11:07:00 Test Item Value Reference Range Interpretation Comments BUN (test code = 26 mg/dL 7-21 H 3094-0) Creatinine (test code = 1.83 mg/dL 0.57-1.25 H 2160-0) EGFR (test code = 33 mL/min/1.73 [place] [address]-3) NOT ACCURATE CREATININE CLEARANCE IN PREDICTING GLOMERULAR FILTRATION RATE . ESTIMATED GFR I S NOT APPLICABLE FOR DIALYSIS PATIEN TS. Lab Interpretation Abnormal (test code = 50640-6) [facility] Center[facility]LECT[facility]OLYTES2019-11-11 11:07:00 Test Item Value Reference Range Interpretation Comments SODIUM (BEAKER) (test code = 381) 138 meq/L 136-145 POTASSIUM (BEAKER) (test code = 4.7 meq/L 3.5-5.1 379) CHLORIDE (BEAKER) (test code = 382) 107 meq/L 98-107 CO2 (BEAKER) (test code = 355) 26 meq/L 22-29 [id number] 11:07:00 Test Item Value Reference Range Interpretation Comments GLUCOSE RANDOM (BEAKER) (test code 134 mg/dL 70-105 H = 652) BUN AND [id number] 11:07:00 Test Item Value Reference Range Interpretation [...] S NOT APPLICABLE FOR DIALYSIS PATIEN TS. [id number] 10:54:00 Test Item Value Reference Range Interpretation Comments Hemoglobin (test code = 786-4) 13.1 11.2- 15.7 GM/DL Lab Interpretation (test code = Normal 35396-7) [facility] CenterHEMOGLOBIN2019-11-11 10:54:00 Test Item Value Reference Range Interpretation Comments HEMOGLOBIN (BEAKER) (test code = 13.1 GM/DL 11.2-15.7 410) PET, CARDIAC PERFUSION MULTIPLE STUDIES, REST AND [id number] 16:17:00 Reason for Exam:->i73.9, e11.9, i25.10FINAL REPORT PROCEDURE: MYOCARDIAL PERFUSION PET IMAGING (Rest/Stress)CPT CODE: 62041 INDICATION: Known CAD CARDIOVASCULAR PROFILE:CAD History: Known [...] prior study for comparison. Signed: [facility]rell [facility]id[facility] Verified Date/Time: 11/26/2018 16:17:24 Reading Location: [address] Reading Room N myocardial perfusion PET (rest and stress)2018-11-26 16:17:00 Interface, External Ris In - 11/26/2018 4:56 PM CDTFINAL REPORT PROCEDURE: MYOCARDIAL PERFUSION PET IMAGING (Rest/Stress)CPT CODE: 35952 INDICATION: Known CAD CARDIOVASCULAR PROFILE:CAD History: Known [...] prior study for comparison. Signed: Darrell Naidu MDReportVerified Date/Time: 11/26/2018 16:17:24 Reading Location: [address] Reading Room [facility] METABOLIC [id number] 11:28:00 Test Item Value Reference Range Interpretation [...] PATIEN TS. CBC W/PLT COUNT & AUTO [id number] 11:19:00 Test Item Value Reference Range Interpretation [...] (BEAKER) (test code = 2801) BASIC METABOLIC [id number] 14:13:00 Test Item Value Reference Range Interpretation [...] PATIEN TS. CBC W/PLT COUNT & AUTO [id number] 13:54:00 Test Item Value Reference Range Interpretation [...] % 0-1 PERCENT (BEAKER) (test code = 1820)
[2019-11-16] MEDS ORDERED: ONDANSETRON 4 MG (ODT) TAB ONE (21:51)
[2019-11-16] MEDS ORDERED: MORPHINE 4 MG/ML SYR ONE (21:51)
--- NOTE | 2019-11-16 22:46 | ER ---
Nurse's Notes [facility] Name: Sangita Hendrix Age: 74 yrs Sex: Female : 1945 Arrival Date: 11/16/2019 Time: 21:04 Bed 13 Private MD: Nam Alexander R Diagnosis: Cervical radiculopathy Presentation: 11/15 21:05 Chief complaint: Patient's son or daughter states: She was working in the yard about 1 jb4 week ago and her right arm started hurting. We do not know of any injury and she cannot remember. Tonight the pain is worse. Coronavirus screen: Client denies travel out of the [place] in the last 14 days. At this time, the client does not indicate any symptoms associated with coronavirus-19. Ebola Screen: No symptoms or risks identified at this time. 21:05 Method Of Arrival: Ambulatory jb4 21:05 Initial Sepsis Screen: Does the patient meet any 2 criteria? No. Patient's initial jb4 sepsis screen is negative. Does the patient have a suspected source of infection? No. Patient's initial sepsis screen is negative. Risk Assessment: Do you want to hurt yourself or someone else? Patient reports no desire to harm self or others. Onset of symptoms was November 09, 2019. Transition of care: patient was not received from another setting of care. 21:05 Acuity: MADISYN 4 jb4 Historical: - Allergies: 21:05 PENICILLINS; jb4 - Home Meds: 21:05 acetaminophen-codeine 300-30 mg Oral tab 1 tab every 4 hours [Active]; allopurinol 300 jb4 mg Oral tab 1 tab once daily [Active]; Coreg 6.25 mg Oral tab 1 tab [Active]; Entresto 24-26 mg Oral tab daily [Active]; Lantus Sub-Q 100 unit/mL [Active]; Lasix 40 mg Oral tab 1 tab 2 times per day [Active]; potassium chloride 20 mEq Oral TbER 1 tab once daily [Active]; - PMHx: 21:05 BRADYCARDIA; CHF; Diabetes - IDDM; Gout; Pacemaker; jb4 21:20 Dementia; jb4 - PSHx: 21:05 leg; back; vein replacement surgery; jb4 - Immunization history:: Adult Immunizations up to date. - Social history:: Smoking status: Patient denies any tobacco usage or history of. Patient/guardian denies using alcohol, street drugs. Screenin:05 Abuse screen: Denies threats or abuse. Nutritional screening: No deficits noted. jb4 Tuberculosis screening: No symptoms or risk factors identified. Fall Risk None identified. Assessment: 21:05 General: Appears in no apparent distress. uncomfortable, Behavior is calm, cooperative, jb4 appropriate for age. Pain: Complains of pain in right arm Pain radiates to right hand Pain currently is 10 out of 10 on a pain scale. Pain began 1 week ago Is continuous. Neuro: Level of Consciousness is awake, alert, obeys commands, Oriented to person, place, time, situation. Cardiovascular: Patient's skin is warm and dry. Respiratory: Airway is patent Respiratory effort is even, unlabored, Respiratory pattern is regular, symmetrical. GI: No signs and/or symptoms were reported involving the gastrointestinal system. : No signs and/or symptoms were reported regarding the genitourinary system. EENT: No signs and/or symptoms were reported regarding the EENT system. Derm: Skin is intact, Skin is dry, Skin is normal, Skin temperature is warm. Musculoskeletal: Circulation, motion, and sensation intact. Range of motion: intact in all extremities. 22:13 Reassessment: Patient appears in no apparent distress at this time. Patient and/or jb4 family updated on plan of care and expected duration. Pain level reassessed. Patient is alert, oriented x 3, equal unlabored respirations, skin warm/dry/pink. 23:07 Reassessment: Patient appears in no apparent distress at this time. Patient and/or jb4 family updated on plan of care and expected duration. Pain level reassessed. Patient is alert, oriented x 3, equal unlabored respirations, skin warm/dry/pink. Vital Signs: 21:05 BP 152 / 77; Pulse 65; Resp 18; Temp 98.0(TE); Pulse Ox 100% on R/A; Weight 97.52 kg jb4 (R); Height 5 ft. 4 in. (162.56 cm); Pain 10/10; 22:00 BP 167 / 71; Pulse 59; Resp 16; Pulse Ox 99% on R/A; jb4 22:20 Pain 5/10; jb4 23:00 BP 163 / 67; Pulse 58; Resp 16; Pulse Ox 98% on R/A; jb4 21:05 Body Mass Index 36.90 (97.52 kg, 162.56 cm) jb4 ED Course: 21:04 Patient arrived in ED. am2 21:04 Nam Alexander MD is Private Physician. am2 21:05 Rajeev Mike MD is Attending Physician. pkl 21:05 Deepali Calvo, ANAMARIA is Primary Nurse. ca1 21:05 Arm band placed on right wrist. jb4 21:05 Patient has correct armband on for positive identification. Bed in low position. Call jb4 light in reach. Side rails up X 1. Pulse ox on. NIBP on. 21:13 Buddy Hernandes, ANAMARIA is Primary Nurse. jb4 21:16 Triage completed. jb4 21:48 CT C Spine In Process Unspecified. EDMS 22:44 Nam Alexander MD is Referral Physician. pkl 23:00 Sling applied to right arm. dh4 23:00 No provider procedures requiring assistance completed. Patient did not have IV access jb4 during this emergency room visit. Administered Medications: 21:58 Drug: morphine 4 mg Route: IM; Site: left deltoid; jb4 22:20 Follow up: Pain 5/10 Adult; Response: No adverse reaction; Pain is decreased; RASS: jb4 Alert and Calm (0) 21:58 Drug: Zofran (Ondansetron) 4 mg Route: PO; jb4 22:20 Follow up: Response: No adverse reaction jb4 Outcome: 22:45 Discharge ordered by . pkl 23:00 Discharged to home ambulatory, with family. jb4 23:00 Condition: stable 23:00 Discharge instructions given to patient, family, Instructed on discharge instructions, follow up and referral plans. medication usage, Demonstrated understanding of instructions, follow-up care, medications, Prescriptions given X 1. 23:08 Patient left the ED. jb4 Signatures: Dispatcher [employer] EDNE Rajeev Mike MD MD pkl Bryson, James, RN RN jb4 Nafisa Major am2 Deepali Calvo RN RN David Canseco 4
--- NOTE | 2019-11-16 22:46 | EDPHYS ---
Physician Documentation [facility] Name: Sangita Hendrix Age: 74 yrs Sex: Female : 1945 Arrival Date: 11/16/2019 Time: 21:04 Bed 13 Private MD: Nam Alexander R ED Physician Rajeev Mike HPI: 11/15 21:32 This 74 yrs old Black Female presents to ER via Ambulatory with complaints of Arm Pain, pkl Shoulder Pain. 21:32 The patient or guardian complains of pain, that is acute. The complaints affect the pkl right upper extremity. Onset: The symptoms/episode began/occurred 1 week(s) ago. Associated signs and symptoms: The patient has no apparent associated signs or symptoms. Historical: - Allergies: 21:05 PENICILLINS; jb4 - Home Meds: 21:05 acetaminophen-codeine 300-30 mg Oral tab 1 tab every 4 hours [Active]; allopurinol 300 jb4 mg Oral tab 1 tab once daily [Active]; Coreg 6.25 mg Oral tab 1 tab [Active]; Entresto 24-26 mg Oral tab daily [Active]; Lantus Sub-Q 100 unit/mL [Active]; Lasix 40 mg Oral tab 1 tab 2 times per day [Active]; potassium chloride 20 mEq Oral TbER 1 tab once daily [Active]; - PMHx: 21:05 BRADYCARDIA; CHF; Diabetes - IDDM; Gout; Pacemaker; jb4 21:20 Dementia; jb4 - PSHx: 21:05 leg; back; vein replacement surgery; jb4 - Immunization history:: Adult Immunizations up to date. - Social history:: Smoking status: Patient denies any tobacco usage or history of. Patient/guardian denies using alcohol, street drugs. ROS: 21:32 Eyes: Negative for injury, pain, redness, and discharge, ENT: Negative for injury, pkl pain, and discharge, Neck: Negative for injury, pain, and swelling, Cardiovascular: Negative for chest pain, palpitations, and edema, Respiratory: Negative for shortness of breath, cough, wheezing, and pleuritic chest pain, Abdomen/GI: Negative for abdominal pain, nausea, vomiting, diarrhea, and constipation, Back: Negative for injury and pain, : Negative for injury, bleeding, discharge, and swelling. 21:32 MS/extremity: Positive for pain, of the right upper extremity. 21:32 Skin: Negative for rash. 21:32 Neuro: Negative for altered mental status. Exam: 21:32 Head/Face: Normocephalic, atraumatic. Eyes: Pupils equal round and reactive to light, pkl extra-ocular motions intact. Lids and lashes normal. Conjunctiva and sclera are non-icteric and not injected. Cornea within normal limits. Periorbital areas with no swelling, redness, or edema. ENT: Nares patent. No nasal discharge, no septal abnormalities noted. Tympanic membranes are normal and external auditory canals are clear. Oropharynx with no redness, swelling, or masses, exudates, or evidence of obstruction, uvula midline. Mucous membranes moist. 21:32 Neck: ROM/movement: pain, that is mild, with any movement. 21:32 Chest/axilla: Exam negative for acute changes. 21:32 Cardiovascular: Rate: normal, Rhythm: regular. 21:32 Respiratory: the patient does not display signs of respiratory distress, Respirations: normal, Breath sounds: are clear throughout. 21:32 Abdomen/GI: Bowel sounds: normal, Palpation: abdomen is soft and non-tender, in all quadrants. 21:32 Back: Exam negative for acute changes. 21:32 : Exam negative for acute changes. 21:32 Musculoskeletal/extremity: Exam is negative for acute changes. 21:32 Skin: Exam negative for rash. 21:32 Neuro: Orientation: is normal, Mentation: is normal, Cranial nerves: grossly normal, Motor: is normal. Vital Signs: 21:05 BP 152 / 77; Pulse 65; Resp 18; Temp 98.0(TE); Pulse Ox 100% on R/A; Weight 97.52 kg jb4 (R); Height 5 ft. 4 in. (162.56 cm); Pain 10/10; 22:00 BP 167 / 71; Pulse 59; Resp 16; Pulse Ox 99% on R/A; jb4 22:20 Pain 5/10; jb4 23:00 BP 163 / 67; Pulse 58; Resp 16; Pulse Ox 98% on R/A; jb4 21:05 Body Mass Index 36.90 (97.52 kg, 162.56 cm) jb4 MDM: 21:05 Patient medically screened. pkl 22:42 Data reviewed: vital signs, nurses notes, radiologic studies, CT scan. ED course: pkl Patient feeling better. Discussed CT scan results with patient and her daughter. Advised to follow up with PCP in 2 to 3 days. Patient and understood instructions. 11/15 21:31 Order name: CT C Spine pkl 11/15 22:47 Order name: Sljamee; Complete Time: 23:01 pkl Administered Medications: 21:58 Drug: morphine 4 mg Route: IM; Site: left deltoid; jb4 22:20 Follow up: Pain 5/10 Adult; Response: No adverse reaction; Pain is decreased; RASS: jb4 Alert and Calm (0) 21:58 Drug: Zofran (Ondansetron) 4 mg Route: PO; jb4 22:20 Follow up: Response: No adverse reaction jb4 Disposition: 11/16/19 22:45 Discharged to Home. Impression: Cervical radiculopathy. - Condition is Stable. - Prescriptions for Ultram 50 mg Oral Tablet - take 1 tablet by ORAL route every 8 hours As needed; 20 tablet. - Medication Reconciliation Form, Thank You Letter, Antibiotic Education, Prescription Opioid Use form. - Follow up: Nam Alexander MD; When: 2 - 3 days; Reason: Re-evaluation by your physician. - Problem is new. - Symptoms have improved. Signatures: Dispatcher [employer] EDMS Rajeev Mike MD MD pkl Buddy Hernandes RN RN jb4 Corrections: (The following items were deleted from the chart) 23:08 22:45 11/16/2019 22:45 Discharged to Home. Impression: Cervical radiculopathy. jb4 Condition is Stable. Forms are Medication Reconciliation Form, Thank You Letter, Antibiotic Education, Prescription Opioid Use. Follow up: Nam Alexander; When: 2 - 3 days; Reason: Re-evaluation by your physician. Problem is new. Symptoms have improved. pkl
[2019-11-16 23:30] VITALS: TEMP 98
[2019-11-16 23:33] VITALS: BP 163/67; O2SAT 98
--- NOTE | 2019-11-17 10:13 | RAD REPORT ---
EXAM DESCRIPTION: CT - C Spine Wo Con - 11/17/2019 2:41 am CLINICAL HISTORY: Pain radiating down right arm COMPARISON: None Available TECHNIQUE: Contiguous axial images of the cervical spine were obtained without the administration of intravenous contrast followed by reconstruction images. This exam was performed according to our [facility] dose-optimization program, which includes automated exposure control, adjustment of the mA and/or kV according to patient size and/or use of iterative reconstruction technique. FINDINGS: There is no acute fracture or subluxation. Prevertebral soft tissues are within normal wilde its. There is intervertebral disc space narrowing and osteophytic formation more pronounced at C4-C5, C5-C6 and C6-C7. There is bilateral neural foramina narrowing at C3-C4, C4-C5, C5-C6 and C6-C7. Ther e is canal narrowing at C4-C5 due to posterior osteophytic disc complex and facet hypertrophy. Mild c entral disc bulge at C3-C4 effacing the ventral aspect of the thecal sac. Nonspecific groundglass opa [place] at the right upper lung could be secondary to atelectasis. IMPRESSION: No acute fracture or subluxation. Degenerative changes as described including canal sten osis at C4-C5. Nonspecific groundglass opacity at the right upper lung could be secondary to atelectasis. Electronically signed by: Ab Isaac MD 11/16/2019 10:25 PM CDT Due to temporary technical issues with the PACS/Fluency reporting system, reports are being signed by the in house radiologist without review as a courtesy to ensure prompt reporting. The interpreting r adiologist is fully responsible for the content of the report.
== END 2019-11-16 23:08 | disposition home or self-care (01) ==
LOC: ER 21:02
DX: M54.12 Radiculopathy, cervical region (principal); Z95.0 Presence of cardiac pacemaker; E11.9 Type 2 diabetes mellitus without complications; I50.9 Heart failure, unspecified; F03.90 Unspecified dementia, unspecified severity, without behavioral disturbance, psychotic disturbance, mood disturbance, and anxiety; Z79.4 Long term (current) use of insulin; Z88.0 Allergy status to penicillin
CPT/HCPCS: 72125; 96372; 99284

== ENCOUNTER 2020-08-29 04:12 | Emergency (ER) | payer OTHER ==
--- OUTSIDE RECORDS SUMMARY | 2020-08-29 04:17 | XMS REPORT | Continuity of Care Document ---
:1945 Author Organization [facility] t Address [address] [place] [address] Care Team Providers Name Role Phone Martin Cook Primary Care Physician Unavailable Franki VILLAGOMEZ Attending Clinician Franki VILLAGOMEZ Attending Clinician FRANKI Attending Clinician Unavailable Elliott RN, S Attending Clinician Unavailable Gavino VILLAGOMEZ Attending Clinician FRANKI Admitting Clinician Unavailable Payers Payer Name Policy Type Policy Effective Date Expiration Date Sour ce Number HUMANA - MEDICARE [id number] [address] [facility] MGD CAREHUMANA 00:00:00 - Medical MEDICARE Center [id number]/02/19 019-PresentMaps Contracted Problems Condition Condition Condition Status Onset Resolution Last Treating Co mments Source Name Details Category Date Date Treatment Clinician Date 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 - exposure 00:00:00 00:00:00 [facility] Alcohol intake 2020-01-20 2020-01-20 [facility]:00 non-drinker of Medical Ce nter alcohol (finding) History [facility] 2018-05-28 2018-05-[address] [facility] - Alcohol Frequency 00:00:00 00:00:00 [facility] Smoking Status Start Date Stop Date Source Never smoker [facility] - M edical [place] Medications Ordered Filled Start Stop Current Ordering Indication Dosage Frequency Signature Comments Components Source Medication Medication Date Date Medication? Clinician (SIG) Name Name insulin 2019-02 Yes 20U Inject 20 [facility] glargine 1-30 Units [facility] - (LANTUS) 11:09: subcutaneo Med ical 100 unit/mL 02 usly as Cente r injection needed Use as directed . sacubitril- 2019-02 Yes 1{tbl} Q.5D Take [address] valsartan 1-30 tablet by [facility] - (ENTRESTO) 11:09: mouth 2 Medi ava 24-26 mg 02 (two) [place] Tab times daily. amiodarone 2019-02 Yes 200mg QD Take [address] (PACERONE) 1-30 mg by [facility] - 200 MG 11:09: mouth Medical tablet 02 daily. [place] furosemide 2019-02 Yes 40mg QD Take [address] (LASIX) 40 1-30 by mouth [facility] - MG tablet 11:09: daily. Medica l 02 Center carvedilol 2019-02 Yes 6.25mg Take 6.[address] (COREG) 1-30 mg by [facility] - 6.25 MG 11:09: mouth 2 Medical tablet 02 (two) Center times daily with breakfast and dinner. rosuvastati 2019-02 Yes 20mg QD Take [address] [facility] (CRESTOR) 30 by mouth Luke s - 20 MG 11:09: daily. Medical tablet 02 [place] aspirin 81 2019-02 Yes 81mg QD Take [address] MG EC 30 by mouth [facility] - tablet 11:09: daily. Medical [address] [place] [address] clopidogreL 2019-02 Yes 75mg QD Take [address] (PLAVIX) 75 30 by mouth Luke s - mg tablet 11:09: daily. Medica l 02 [place] potassium 2019-02- No 20meq QD Take [address] chloride SA 03-19 mEq by [facility] - (K-DUR,KLOR 05:57: 00:00 mouth Medi ava -CON) 20 18 :00 daily. [place] MEQ tablet QUEtiapine 2019-02 No 25mg QD Take [address] (SEROquel) 03-07 by mouth Luke s - 25 MG 00:00: 00:00 daily. Medical tablet 00 :00 [place] traMADoL 2019-02 Yes 50mg Q.5D Take [address] (ULTRAM) 50 -14 by mouth 2 [facility] - mg tablet 00:00: (two) Medical 00 times Center daily. gabapentin 2018-02- No 600mg QD Take 2 [...] every 6 (six) hours for 360 days. Vital Signs Vital Name Observation Time Observation Value Comments Source Systolic blood 2020-01-18 10:55:00 133 mm[Hg] [facility] pressure [facility] Diastolic blood 2020-01-18 10:55:00 60 mm[Hg] [facility] Heart rate 2020-01-18 10:55:00 76 /min [facility] Respiratory rate 2020-01-18 10:55:00 18 /min [facility] Oxygen saturation in 2020-01-18 10:55:00 100 /min [facility] - Arterial blood by Medical Ce nter Pulse oximetry Body temperature 2020-01-18 05:39:00 37 Michela [facility] Body height 2020-01-18 05:39:00 162.6 cm [facility] Body weight 2020-01-18 05:39:00 99.111 kg [facility] BMI 2020-01-18 05:39:00 37.51 kg/m2 [facility] Procedures Procedure Date / Time Performed Performing Clinician Sourc e POCT-GLUCOSE METER 2020-01-18 09:12:00 Ian Doan [facility] ECG 12-LEAD 2020-01-18 07:21:59 Endy Alexis [facility] STENT / SUBCLAVIAN 2020-01-18 06:59:00 Ian Doan [facility] CARDIAC CATH REPORT - 2020-01-18 00:00:00 ProviderCarly [facility] SCAN Scanning [facility] SARS-COV2/RT-PCR ([facility] 2020-01-15 08:54:00 Ian Doan [facility] - & REF LABS) [facility] Plan of Care Planned Activity Planned Date Details Comments Source Future Scheduled 2020-10-[address] [facility] - Test 00:00:00 (#1) [code = [facility] INFLUENZA VACCINE (#1)] Future Scheduled 2020-02-[address] [facility] - Test 00:00:00 (12+) [code = [facility] DEPRESSION SCREENING (12+)] Future Scheduled 2019-02-[address] [facility] - Test 00:00:00 WELLNESS (YEAR 2 or Medical Center FIRST YEAR if no IPPE) [code = MEDICARE ANNUAL WELLNESS (YEAR 2 or FIRST YEAR if no IPPE)] Future Scheduled 2018-11-[address] [facility] - Test 00:00:00 measurement Medical Center (procedure) [code = 84452421] Future Scheduled 1996 SHINGLES VACCINES ([address] [facility] - Test 00:00:00 of 2) [code = [facility] SHINGLES VACCINES (1 of 2)] Future Scheduled 1965 DTAP/TDAP/TD VACCINES [facility] Test 00:00:00 (1 - Tdap) [code = Medical C enter DTAP/TDAP/TD VACCINES (1 - Tdap)] Future Scheduled 1964 HEPATITIS C [facility]CRE[facility]ING [facility] Test 00:00:00 [code = HEPATITIS C Medical Center SCREENING] Future Scheduled 1958 COVID-19 VACCINE (1) [facility] - Test 00:00:00 [code = COVID-[address] VACCINE (1)] Future Scheduled 1955 DIABETIC EYE EXAM [facility] - Test 00:00:00 [code = DIABETIC EYE Medical Center EXAM] Future Scheduled 1956 Urine screening for [facility] - Test 00:00:00 protein (procedure) [facility] [code = 447603073] Future Scheduled [address] [facility] - Test 00:00:00 malignant neoplasm of [facility] breast (procedure) [code = 558963669] Future Scheduled [address] [facility] - Test 00:00:00 malignant neoplasm of [facility] colon (procedure) [code = 435862845] Encounters Start End Encounter Admission Attending Care Care Encounter Source Date/Time Date/Time Type Type Clinicians Facility Department ID 2020-02-03 2020-02-03 Office KWAME Doan [id number] 14:42:26 17:03:39 Visit Jayer AMBULATOR [id number] Y 0.2.7.2.686 [id number] 2019-11-25 2019-11-25 Office KWAME Doan [id number] 09:56:31 16:38:39 Visit Ian AMBULATOR [id number] Y 0.2.7.2.686 [id number] 2019-08-26 2019-08-26 Office KWAME Doan [id number] 09:32:20 11:46:44 Visit Jayer AMBULATOR [id number] Y 0.2.7.2.686 [id number] 2019-05-27 2019-05-27 Office KWAME Doan [id number] 09:13:18 12:39:17 Visit Jayer AMBULATOR [id number] Y 0.2.7.2.686 [id number] 2019-03-18 2019-03-18 Office KWAME Doan [id number] 08:40:49 09:39:44 Visit Jamauri AMBULATOR [id number] Y 0.2.7.2.686 [id number] 2019-03-04 2019-03-04 Office KWAME Doan [id number] 09:20:10 11:54:55 Visit Jamauri AMBULATOR [id number] Y 0.2.7.2.686 [id number] 2018-11-17 2018-11-17 Office Michael Mancia [id number] 15:58:42 16:43:42 Visit AMBULATOR [id number] Y 0.2.7.2.686 [id number] Results Test Description Test Time Test Results Result Source Comments Comments CARDIAC CATH Ordered by an unspecified [facility] RE[facility] - SCAN 3 provider. Megha - 13:04:33 [facility] ECG 12 lead Interface, External Ris [facility] 1 In - 01/19/2020 6:31 AM Megha - 06:31:37 CSTVentricular Rate 63 Me dical BPMAtrial Rate 63 BPMP-R Center Interval 196 msQRS Duration 122 msQ-T Interval 486 msQTC Calculation(Bazett) 497 msP Chauncey 66 degreesR Chauncey -22 degreesT Chauncey 73 degreesNormal sinus rhythmSeptal infarct (cited on or before 28-MAY-2018)Possible Lateral infarct , age undeterminedAbnormal ECGWhen compared with ECG of 26-NOV-2018 14:30,OH interval has decreasedQuestionable change in QRS axisNonspecific T wave abnormality, improved in Lateral leadsConfirmed by MD AMY, LUDWIN Ortiz ([id number]) on 01/19/2020 6:31:36 AM POC-Glucose meter 2020-01-18 09:24:00 Test Item Value Reference Range Interpretation Comme nts POC-Glucose Meter (test code = 145 mg/dL 70-110 H : TESTED AT [facility] [address]) [facility], [address] 30: Childhood Teacher/Techni charo ID = [id number] for MARILU MIRANDA Lab Interpretation (test code = Abnormal 74909-6) [facility] [id number] 09:24:00 Test Item Value Reference Range Interpretation Comments POC-GLUCOSE METER 145 mg/dL 70-110 H : TESTED A T [facility] [address] (BEAKER) (test code = [address]ERT[address] R [facility], 1538) [address]: Childhood Teacher/Techni charo ID = [id number] for [place] MARILU KINCAID SARS-CoV2/RT-PCR ([facility] & Ref Labs)2020-01-15 14:45:00 Test Item Value Reference Range Interpretation Comments SARS-COV2/RT-PCR Negative Not Detected, (test code = Negative, See 51067-8) external report for linked test SARS-COV-2 [facility] PERFORMING LAB (test code = 85248-3) LINA (test code = Negative result for this LINA) test determines that SARS-CoV-2 RNA was not present in the specimen above the Limit of Detection (LOD). However, Negative results do not preclude SARS-CoV-2 infection and should not be used as the sole basis for treatment or patient management decisions. Negative results must be combined with clinical observations, patient history, and epidemiological information. A false negative result may occur if a specimen is improperly collected, transported or handled. A false negative result should be considered if patient's recent exposures or clinical presentation indicate that COVID-19 (SARS-CoV-2) is likely and diagnostic tests for other causes of illness are negative. Re-testing should be considered in cases of suspected false negatives. The limit of detection for this assay is 800 copies/mL. This SARS CoV-2 test is a real-time RT-PCR test intended for the qualitative detection of nucleic acid from SARS-CoV-2 in a nasopharyngeal swab specimen collected from individuals suspected of COVID-19 by their healthcare provider. This test has not been Food and Drug Administration (FDA) cleared or approved. This is a modified version of an approved Emergency Use Authorization (EUA) and is in the process of review by the FDA. Once authorized by the FDA, the issued EUA will be effective until the declaration that circumstances exist justifying the authorization of the emergency use of in vitro diagnostic tests for detection and/or diagnosis of COVID-19 is terminated under Section 564(b)(2) of the Act or the EUA is revoked under Section 564(g) of the Act. Fact Sheet for Healthcare Providers:https://www.Virtual [employer] Smart[employer]/sites/default/f ariel/product/documents/F act_Sheet_HC_Providers_L ezy_MXUC-FqK-9.pdf Fact Sheet for Healthcare Patients:https://www.[employer]/sites/default/fi les/product/documents/Fa ct_Sheet_Patients_Lyra_S ARS-CoV-2.pdf Performing Laboratory:[facility] [facility].[place], [place] [address] [place], [place] [address]ARS-COV2/RT-PCR ([facility] & REF LABS)2020-01-15 14:45:00 Test Item Value Reference Range Interpretation Comments SARS-COV2/RT-PCR (test Negative Not Detected, Negative, code = 8705724) See external report for linked test SARS-COV-2 PERFORMING LAB [facility] (test code = 5653514) Negative result for this test determines that SARS-CoV-2 RNA was not present in the specimen above the Limit of Detection (LOD). However, Negative results do not preclude SARS-CoV-2 infection and should not be used as the sole basis for treatment or patient management decisions. Negative results mustbe combined with clinical observations, patient history, and epidemiological information. A false negative result may occur if a specimen is improperly collected, transported or handled. A false negative result should be considered if patient's recent exposures or clinical presentation indicate that COVID-19 (SARS-CoV-2) is likely and diagnostic tests for other causes of illness are negative. Re-testing should be considered in cases of suspected false negatives.The limit of detection for this assay is 800 copies/mL.This SARS CoV-2 test is a real-time RT-PCR test intended for the qualitative detection of nucleic acid from SARS-CoV-2 in a nasopharyngeal swab specimen collected from individuals susp ected of COVID-19 by their healthcare provider.This test has not been Food and Drug Administration (FDA) cleared or approved. This is a modified version of an approved Emergency Use Authorization (EUA) and is in the process of review by the FDA. Once authorized by the FDA, the issued EUA will be effective until the declaration that circumstances exist justifying the authorization of the emergency use of in vitro diagnostic tests for detection and/or diagnosis of COVID-19 is terminated under Section 564(b)(2) of the Act or the EUA is revoked under Section 564(g) of the Act.Fact Sheet for Healthcare Providers:https://www.YES[employer]/sites/default/files/product/documents/Fact_Shee g_UJ_Knqwzuwna_Dyft_TINR-ImQ-6.pdfFact Sheet for Healthcare Patients:https://www.[employer]/sites/default/files/product/ documents/Ynyl_Pjmzf_Kegfmqgn_Etcy_LOWT-FwE-2.pdfPerforming Laboratory:[facility], [place] [address]XBDJ-KYOSPFL METER 2019-01-16 11:39:00 Test Item Value Reference Range Interpretation Comments POC-GLUCOSE METER 100 mg/dL 70-110 : TESTED A T [facility] [address] ([facility]) (test code = JOSE G James [facility], 1538) [address]: Childhood Teacher/Techni charo ID = [id number] for BOZENA GEORGE CBC W/PLT COUNT & AUTO [id number] 10:30:00 Test Item Value Reference Range Interpretation [...] 3438) Received comment: User comments: Slide comments:POCT-GLUCOSE [id number] 08:27:00 Test Item Value Reference Range Interpretation Comments POC-GLUCOSE METER 90 mg/dL 70-110 : [facility] (test code = [address] [place], 1538) [address]: Childhood Teacher/Techni charo ID = [id number] for BOZENA GOLDBERG BASIC METABOLIC [id number] 05:15:00 Test Item Value Reference Range Interpretation [...] NOT APPLICABLE FOR DIALYSIS PATIEN TS. POCT-GLUCOSE [id number] 20:27:00 Test Item Value Reference Range Interpretation Comments POC-GLUCOSE METER 119 mg/dL 70-110 H : TESTED A T [facility] [address] (BEAKER) (test code = [facility], 153) [address]: Childhood Teacher/Techni charo ID = [id number] for Jeffery Boone POCT-GLUCOSE [id number] 17:11:00 Test Item Value Reference Range Interpretation Comments POC-GLUCOSE METER 122 mg/dL 70-110 H : TESTED A T [facility] [address] (BEAKER) (test code = [facility], [facility]) [address]: Childhood Teacher/Techni charo ID = [id number] for Ec at, Cecella POCT-GLUCOSE [id number] 13:01:00 Test Item Value Reference Range Interpretation Comments POC-GLUCOSE METER 113 mg/dL 70-110 H : TESTED A T [facility] [address] (BEAKER) (test code = [facility], [facility]) [address]: Childhood Teacher/Techni charo ID = [id number] for NICO NORIEGA CHIRY POCT-GLUCOSE [id number] 08:45:00 Test Item Value Reference Range Interpretation Comments POC-GLUCOSE METER 98 mg/dL 70-110 : TESTED A T [facility] [address] (BEAKER) (test code = [facility], 153) [address]: Childhood Teacher/Techni charo ID = [id number] for ANA GAGNON POCT-GLUCOSE [id number] 21:07:00 Test Item Value Reference Range Interpretation Comments POC-GLUCOSE METER 84 mg/dL 70-110 : TESTED A T [facility] [address] (BEAKER) (test code = [facility], [facility]) [address]: Childhood Teacher/Techni charo ID = [id number] for Pk Hammonds POCT-GLUCOSE [id number] 16:47:00 Test Item Value Reference Range Interpretation Comments POC-GLUCOSE METER 108 mg/dL 70-110 : TESTED A T [facility] [address] (BEAKER) (test code = [facility], 153) [address]: Childhood Teacher/Techni charo ID = [id number] for Ellen bean, Mainwitha POCT-GLUCOSE [id number] 15:12:00 Test Item Value Reference Range Interpretation Comments POC-GLUCOSE METER 118 mg/dL 70-110 H : TESTED A T [facility] [address] (BEAKER) (test code = [facility], [facility]) 18[address]: Childhood Teacher/Techni charo ID = [id number] for VIOLETA JONESO POCT-GLUCOSE [id number] 15:04:00 Test Item Value Reference Range Interpretation Comments POC-GLUCOSE METER 127 mg/dL 70-110 H : TESTED A T [facility] [address] (BEAKER) (test code = [facility], [facility]) [address]: Childhood Teacher/Techni charo ID = [id number] for HU NTER, HIWITHA POCT-GLUCOSE [id number] 14:34:00 Test Item Value Reference Range Interpretation Comments POC-GLUCOSE METER 89 mg/dL 70-110 : TESTED A T [facility] [address] (BEAKER) (test code = [facility], [facility]) [address]: Childhood Teacher/Techni charo ID = [id number] for BATEMAN ER, HIWITHA POCT-GLUCOSE [id number] 13:53:00 Test Item Value Reference Range Interpretation Comments POC-GLUCOSE METER 137 mg/dL 70-110 H : TESTED A T [facility] [address] (BEAKER) (test code = [facility], [facility]) [address]: Childhood Teacher/Techni charo ID = [id number], Hiwitha POCT-GLUCOSE [id number] 12:44:00 Test Item Value Reference Range Interpretation Comments POC-GLUCOSE METER 125 mg/dL 70-110 H : TESTED A T [facility] [address] (BEAKER) (test code = [facility], [facility]) [address]: Childhood Teacher/Techni charo ID = [id number] for OC CRUZ POCT-GLUCOSE [id number] 08:33:00 Test Item Value Reference Range Interpretation Comments POC-GLUCOSE METER 112 mg/dL 70-110 H : TESTED A T [facility] [address] (BEAKER) (test code = [facility], [facility]) 426[address]: Childhood Teacher/Techni charo ID = [id number] for ANA PALACIO POCT-GLUCOSE [id number] 07:56:00 Test Item Value Reference Range Interpretation Comments POC-GLUCOSE METER 96 mg/dL 70-110 : TESTED A T [facility] [address] (BEAKER) (test code = [place], 1538) [address]: Childhood Teacher/Techni charo ID = [id number] for Danica Pennington BASIC METABOLIC [id number] 07:07:00 Test Item Value Reference Range Interpretation [...] PATIEN TS. CBC W/PLT COUNT & AUTO [id number] 06:52:00 Test Item Value Reference Range Interpretation [...] PERCENT (BEAKER) (test code = 2801) POCT-GLUCOSE [id number] 21:36:00 Test Item Value Reference Range Interpretation Comments POC-GLUCOSE METER 143 mg/dL 70-110 H : TESTED A T [facility] [address] (BEAKER) (test code = [facility], 1538) [address]: Childhood Teacher/Techni charo ID = [id number] for DA VIS, RODGER POCT-GLUCOSE [id number] 19:20:00 Test Item Value Reference Range Interpretation Comments POC-GLUCOSE METER 117 mg/dL 70-110 H : TESTED A T [facility] [address] (BEAKER) (test code = [facility], 1538) [address]: Childhood Teacher/Techni charo ID = [id number] for DA VIS, RODGER POCT-GLUCOSE [id number] 09:30:00 Test Item Value Reference Range Interpretation Comments POC-GLUCOSE METER 100 mg/dL 70-110 : TESTED A T [facility] 67[address] (BEAKER) (test code = [address], 1538) [address]: Childhood Teacher/Techni charo ID = [id number] for ANA PALACIO BASIC METABOLIC [id number] 05:18:00 Test Item Value Reference Range Interpretation [...] PATIEN TS. CBC W/PLT COUNT & AUTO [id number] 04:37:00 Test Item Value Reference Range Interpretation [...] PERCENT (BEAKER) (test code = 2801) POCT-GLUCOSE [id number] 20:59:00 Test Item Value Reference Range Interpretation Comments POC-GLUCOSE METER 95 mg/dL 70-110 : TESTED A T [facility] 6720 (BEAKER) ([facility] = [facility] 1538[facility] [address]: Childhood Teacher/Techni charo ID = [id number] for RODGER SPARKS POCT-GLUCOSE [id number] 17:08:00 Test Item Value Reference Range Interpretation Comments POC-GLUCOSE METER 90 mg/dL 70-110 : TESTED A T [facility] [address] (BEAKER) (test code = JOSE G James [facility], 1538) [address]: Childhood Teacher/Techni charo ID = [id number] for BELLE CHAPA POCT-GLUCOSE [id number] 12:10:00 Test Item Value Reference Range Interpretation Comments POC-GLUCOSE METER 118 mg/dL 70-110 H : TESTED A T [facility] [address] (BEAKER) (test code = JOSE G James [facility], 1538) [address]: Childhood Teacher/Techni charo ID = [id number] for BELLE GRIFFITHS U/S, RENAL, [id number] 10:37:00Reason for exam:->ckdFINAL REPORT TECHNIQUE: Grayscale ultrasound [...] MDReport Verified Date/Time: 01/11/2019 10:37:05 Reading Location: [address] Body Reading Room POCT-GLUCOSE [id number] 09:22:00 Test Item Value Reference Range Interpretation Comments POC-GLUCOSE METER 75 mg/dL 70-110 : TESTED A T [facility] [address] (BEAKER) (test code = JOSE G James [facility], 1538) [address]: Childhood Teacher/Techni charo ID = [id number] for CICI DRISCOLL [id number] 04:57:00 Test Item Value Reference Range Interpretation Comments PHOSPHORUS (BEAKER) (test code = 2.8 mg/dL 2.3-4.7 604) [id number] 04:57:00 Test Item Value Reference Range Interpretation Comments MAGNESIUM (BEAKER) (test code = 1.9 mg/dL 1.6-2.6 627) BASIC METABOLIC [id number] 04:57:00 Test Item Value Reference Range Interpretation [...] PATIEN TS. CBC W/PLT COUNT & AUTO [id number] 04:32:00 Test Item Value Reference Range Interpretation [...] PERCENT (BEAKER) (test code = 2801) POCT-GLUCOSE [id number] 22:26:00 Test Item Value Reference Range Interpretation Comments POC-GLUCOSE METER 95 mg/dL 70-110 : TESTED A T [facility] 6720 (AKER) (test code = [facility], 153) [address]: Childhood Teacher/Techni charo ID = [id number] for Miguel Beena de la paz POCT-GLUCOSE [id number] 17:04:00 Test Item Value Reference Range Interpretation Comments POC-GLUCOSE METER 98 mg/dL 70-110 : TESTED A T [facility] 6720 (AKER) (test code = [facility], 153) [address]47: Childhood Teacher/Techni charo ID = [id number] for BELLE CHAPA PTH, [id number] 16:02:00 Test Item Value Reference Range Interpretation Comments PARATHYROID HORMONE INTACT 200.6 pg/mL 8.5-72.5 H (BEAKER) (test code = 577) CBC W/PLT COUNT & AUTO [id number] 15:09:00 Test Item Value Reference Range Interpretation [...] PERCENT (BEAKER) (test code = 2801) POCT-GLUCOSE [id number] 11:53:00 Test Item Value Reference Range Interpretation Comments POC-GLUCOSE METER 132 mg/dL 70-110 H : TESTED A T [facility] 6720 (BEAKER) (test code = [facility] Jacob [facility], 1538) [address]: Childhood Teacher/Techni charo ID = [id number] for Cici Isaacs POCT-GLUCOSE [id number] 09:42:00 Test Item Value Reference Range Interpretation Comments POC-GLUCOSE METER 112 mg/dL 70-110 H : TESTED A T [facility] 6720 (BEAKER) (test code = [facility], 1538) 92[address]: Childhood Teacher/Techni charo ID = [id number] for Main Isaacswitha URIC [id number] 09:14:00 Test Item Value Reference Range Interpretation Comments URIC ACID (BEAKER) (test code = 7.3 mg/dL 2.6-7.2 H 773) [id number] 06:14:00 Test Item Value Reference Range Interpretation Comments PHOSPHORUS (BEAKER) (test code = 2.8 mg/dL 2.3-4.7 604) [id number] 06:14:00 Test Item Value Reference Range Interpretation Comments MAGNESIUM (BEAKER) (test code = 1.9 mg/dL 1.6-2.6 627) BASIC METABOLIC [id number] 06:14:00 Test Item Value Reference Range Interpretation [...] NOT APPLICABLE FOR DIALYSIS PATIEN TS. POCT-GLUCOSE [id number] 21:33:00 Test Item Value Reference Range Interpretation Comments POC-GLUCOSE METER 113 mg/dL 70-110 H : TESTED A T [facility] 6720 (BEAKER) (test code = [facility], 1538) [id number]: Childhood Teacher/Techni charo ID = [id number] for RODGER JONES POCT-GLUCOSE [id number] 17:16:00 Test Item Value Reference Range Interpretation Comments POC-GLUCOSE METER 113 mg/dL 70-110 H : TESTED A T [facility] 6720 (BEAKER) (test code = [facility], 1538) [id number]: Childhood Teacher/Techni charo ID = [id number] for RIDDHI AGUILAR POCT-GLUCOSE [id number] 12:17:00 Test Item Value Reference Range Interpretation Comments POC-GLUCOSE METER 166 mg/dL 70-110 H : TESTED A T [facility] 6720 (BEAKER) (test code = [facility], 1538) 40824: Childhood Teacher/Techni charo ID = [id number] for AMOS DEL VALLE CHINTAN POCT-GLUCOSE [id number] 07:51:00 Test Item Value Reference Range Interpretation Comments POC-GLUCOSE METER 143 mg/dL 70-110 H : TESTED A T [facility] 6720 (BEAKER) (test code = [facility], 1538) 46584: Childhood Teacher/Techni charo ID = [id number] for Pe Neena harding [id number] 06:28:00 Test Item Value Reference Range Interpretation Comments MAGNESIUM (BEAKER) 1.8 mg/dL 1.6-2.6 Specimen slightly (test code = 627) hemolyzed [id number] 06:28:00 Test Item Value Reference Range Interpretation Comments PHOSPHORUS (BEAKER) 2.5 mg/dL 2.3-4.7 Specimen slightly (test code = 604) hemolyzed BASIC METABOLIC [id number] 06:28:00 Test Item Value Reference Range Interpretation [...] PATIEN TS. CBC W/PLT COUNT & AUTO [id number] 04:20:00 Test Item Value Reference Range Interpretation [...] 0-1 PERCENT (BEAKER) (test code = 2801) [id number] 17:40:00 Test Item Value Reference Range Interpretation Comments PHOSPHORUS (BEAKER) (test code = 3.3 mg/dL 2.3-4.7 604) [id number] 17:40:00 Test Item Value Reference Range Interpretation Comments MAGNESIUM (BEAKER) (test code = 1.8 mg/dL 1.6-2.6 627) BASIC METABOLIC [id number] 17:40:00 Test Item Value Reference Range Interpretation [...] S NOT APPLICABLE FOR DIALYSIS PATIEN TS. [id number] 17:03:00 Test Item Value Reference Range Interpretation [...] mechanical heart valves.CBC W/PLT COUNT & AUTO [id number] 16:56:00 Test Item Value Reference Range Interpretation [...] PERCENT (BEAKER) (test code = 2801) POCT-GLUCOSE [id number] 16:55:00 Test Item Value Reference Range Interpretation Comments POC-GLUCOSE METER 200 mg/dL 70-110 H : TESTED A T [facility] 6720 (BEAKER) (test code = [facility], 1538) 23500: Childhood Teacher/Techni charo ID = [id number] for JOSE DENNEY [id number] 13:51:00 Test Item Value Reference Range Interpretation Comments ACTIVATED CLOTTING TIME 274 sec Refe rence Range: (BEAKER) (test code = 74-137 seconds, 441) Baseline/TESTED AT [facility] 6720 [facility] 7703 0 [id number] 13:51:00 Test Item Value Reference Range Interpretation Comments ACTIVATED CLOTTING TIME 323 sec Refe rence Range: (BEAKER) (test code = 74-137 seconds, 441) Baseline/TESTED AT [facility] 6720 [facility] 7703 0 CBC W/PLT COUNT & AUTO [id number] 07:44:00 Test Item Value Reference Range Interpretation [...] PERCENT (BEAKER) (test code = 2801) POCT-GLUCOSE [id number] 06:13:00 Test Item Value Reference Range Interpretation Comments POC-GLUCOSE METER 123 mg/dL 70-110 H : TESTED A T [facility] 6720 (BEAKER) (test code [facility], = 1538) [id number]: Childhood Teacher/Techni charo ID = [id number] for JORD AN, LACRYSTAL PLATELET [id number] 11:27:00 Test Item Value Reference Range Interpretation Comments PLATELET COUNT (BEAKER) (test 112 K/CU MM 150-450 L code = 756) [id number] 11:07:00 Test Item Value Reference Range Interpretation Comments SODIUM (BEAKER) (test code = 381) 138 meq/L 136-145 POTASSIUM (BEAKER) (test code = 4.7 meq/L 3.5-5.1 379) CHLORIDE (BEAKER) (test code = 382) 107 meq/L 98-107 CO2 (BEAKER) (test code = 355) 26 meq/L 22-29 [id number] 11:07:00 Test Item Value Reference Range Interpretation Comments GLUCOSE RANDOM (BEAKER) (test code 134 mg/dL 70-105 H = 652) BUN AND [id number] 11:07:00 Test Item Value Reference Range Interpretation Comments BLOOD UREA NITROGEN 26 mg/dL 7-21 H (BEAKER) (test code = 354) CREATININE (BEAKER) 1.83 mg/dL 0.57-1.25 H (test code = 358) EGFR (BEAKER) (test 33 mL/min/1.73 ESTIMA RADHA GFR IS code = 1092) sq m NOT ACCURATE CREATININE CLEARANCE IN PREDICTING GLOMERULAR FILTRATION RATE . ESTIMATED GFR I S NOT APPLICABLE FOR DIALYSIS PATIEN [id number] 10:54:00 Test Item Value Reference Range Interpretation Comments HEMOGLOBIN (DAYO) (test code = 13.1 GM/DL 11.2-15.7 410) PET, CARDIAC PERFUSION MULTIPLE STUDIES, REST AND [id number] 16:17:00 Reason for Exam:->i73.9, e11.9, i25.10FINAL REPORT PROCEDURE: MYOCARDIAL PERFUSION PET IMAGING (Rest/Stress)CPT CODE: 52603 INDICATION: Known CAD CARDIOVASCULAR PROFILE:CAD History: Known [...] no prior study for comparison. Signed: Darrell Naidueport Verified Date/Time: 11/26/2018 16:17:24 Reading Location: [place] [id number] [facility] Reading Room [facility] METABOLIC [id number] 11:28:00 Test Item Value Reference Range Interpretation [...] PATIEN TS. CBC W/PLT COUNT & AUTO [id number] 11:19:00 Test Item Value Reference Range Interpretation [...] (BEAKER) (test code = 2801) BASIC METABOLIC [id number] 14:13:00 Test Item Value Reference Range Interpretation [...] PATIEN TS. CBC W/PLT COUNT & AUTO [id number] 13:54:00 Test Item Value Reference Range Interpretation [...] % 0-1 PERCENT (BEAKER) (test code = 5634)
[2020-08-29 05:46] LABS: Absolute Lymphocytes (CBC) 0.8 K/uL (0.7-4.9); Basophils % 1.2 % (0-1.3); Hematocrit 36.4 % (36.0-45.0); Lymphocytes % 20.4 % (15.3-44.8); MPV 10.2 fL (7.6-11.3); RBC Red Blood Cell Count 3.99 M/uL (3.86-4.86)
[2020-08-29 05:54] LABS: Protime INR 1.14
[2020-08-29 06:08] LABS: ALT/SGPT 26 U/L (12-78); AST/SGOT 19 U/L (15-37); Albumin 3.4 g/dL (3.4-5.0); Alkaline Phosphatase 101 U/L (45-117); BUN Blood Urea Nitrogen 25 mg/dL (7-18); Bicarbonate 29 mmol/L (21-32); Bilirubin Direct < 0.1 mg/dL (0-0.2); Bilirubin Total 0.2 mg/dL (0.2-1.0); Glucose Level 155 mg/dL (74-106); Magnesium 2.3 mg/dL (1.8-2.4); NT PRO-BNP 256 pg/mL (<125); Potassium 4.3 mmol/L (3.5-5.1); Protein, Total 7.2 g/dL (6.4-8.2); Sodium Level 139 mmol/L (136-145); Troponin (Emerg Dept Use Only) < 0.02 ng/mL (0.0-0.045)
--- NOTE | 2020-08-29 07:01 | ER ---
Nurse's Notes [facility] Name: Sangita Hendrix Age: 74 yrs Sex: Female : 1945 Arrival Date: 08/29/2020 Time: 04:16 Bed 6 Private MD: Nam Alexander R Diagnosis: Upper Respiratory Infection Presentation: 08/29 04:25 Chief complaint: Patient states: non productive cough, denies chest pain, reports em shortness of breath on exertion, hx of CHF. Coronavirus screen: Client denies travel out of the [place] in the last 14 days. Ebola Screen: Patient negative for fever greater than or equal to 101.5 degrees Fahrenheit, and additional compatible Ebola Virus Disease symptoms Patient denies exposure to infectious person. Patient denies travel to an Ebola-affected area in the 21 days before illness onset. No symptoms or risks identified at this time. Initial Sepsis Screen: Does the patient meet any 2 criteria? No. Patient's initial sepsis screen is negative. Does the patient have a suspected source of infection? No. Patient's initial sepsis screen is negative. Risk Assessment: Do you want to hurt yourself or someone else? Patient reports no desire to harm self or others. Onset of symptoms was August 29, 2020. 04:25 Method Of Arrival: Ambulatory em 04:25 Acuity: MADISYN 3 em Historical: - Allergies: 04:27 PENICILLINS; em - Home Meds: 05:07 clopidogrel 75 mg oral tab 1 tab once daily [Active]; memantine 5 mg oral tab 1 tab em once daily [Active]; Lasix 40 mg Oral tab [Active]; amiodarone 200 mg Oral tab [Active]; aspirin 81 mg Oral tab [Active]; tramadol 50 mg Oral tab as needed for pain [Active]; rosuvastatin 20 mg oral tab 1 tab once daily [Active]; carvedilol 6.25 mg oral tab [Active]; Entresto 24-26 mg oral tab [Active]; - PMHx: 04:27 Pacemaker; Diabetes - IDDM; CHF; BRADYCARDIA; Dementia; Gout; em - PSHx: 04:27 hysterectomy; em - Immunization history:: Adult Immunizations up to date. - Social history:: Smoking status: Patient denies any tobacco usage or history of. Screenin:29 Abuse screen: Denies threats or abuse. Denies injuries from another. Nutritional lp1 screening: No deficits noted. Tuberculosis screening: No symptoms or risk factors identified. Fall Risk None identified. Assessment: 05:29 General: Appears in no apparent distress. Behavior is calm, cooperative. Pain: Denies lp1 pain. Neuro: Level of Consciousness is awake, alert, obeys commands, Oriented to person, place, time, situation. Cardiovascular: Patient's skin is warm and dry. Respiratory: Reports shortness of breath on exertion cough that is non-productive, Airway is patent Trachea midline Respiratory effort is even, Respiratory pattern is regular, Breath sounds are diminished bilaterally. GI: Abdomen is obese. : No signs and/or symptoms were reported regarding the genitourinary system. : No signs and/or symptoms were reported regarding the genitourinary system. EENT: No signs and/or symptoms were reported regarding the EENT system. Derm: Skin is intact, Skin is dry, Skin is normal. Musculoskeletal: No deficits noted. 06:28 Reassessment: Patient appears in no apparent distress at this time. Patient noted to lp1 have persistent cough, non-productive. 07:28 Reassessment: Patient appears in no apparent distress at this time. No changes from sv previously documented assessment. Patient and/or family updated on plan of care and expected duration. Pain level reassessed. Patient is alert, oriented x 3, equal unlabored respirations, skin warm/dry/pink. Vital Signs: 04:25 BP 124 / 63; Pulse 83; Resp 18; Temp 96.7; Pulse Ox 100% on R/A; Weight 99.79 kg; em Height 5 ft. 4 in. (162.56 cm); Pain 0/10; 05:30 BP 146 / 72; Pulse 70; Resp 14; Pulse Ox 100% on R/A; lp1 06:29 BP 126 / 89; Pulse 64; Resp 19; Pulse Ox 99% on R/A; lp1 04:25 Body Mass Index 37.76 (99.79 kg, 162.56 cm) em ED Course: 04:16 Patient arrived in ED. es 04:16 Nam Alexander MD is Private Physician. es 04:27 Triage completed. em 04:27 Arm band placed on. em 04:30 Tevin Harrell MD is Attending Physician. [facility] 05:15 XRAY Chest (1 view) In Process Unspecified. EDMS 05:29 Patient has correct armband on for positive identification. Call light in reach. lp1 manager monitoring on. Pulse ox on. NIBP on. 05:29 Inserted saline lock: 20 gauge in left antecubital area, using aseptic technique. Blood lp1 collected. 05:30 Wendy Bethea, RN is Primary Nurse. lp1 07:28 No provider procedures requiring assistance completed. IV discontinued, intact, sv bleeding controlled, No redness/swelling at site. Pressure dressing applied. 07:29 COVID-19 : Document "Date of Symptom Onset" if Symptomatic. Sent. sv 07:29 Basic Metabolic Panel Sent. sv 07:29 CBC with Diff Sent. sv Administered Medications: No medications were administered Outcome: 07:01 Discharge ordered by . [facility] 07:28 Discharged to home via wheelchair, with family. sv 07:28 Condition: stable 07:28 Discharge instructions given to patient, family, Instructed on discharge instructions, follow up and referral plans. medication usage, Demonstrated understanding of instructions, follow-up care, medications, Prescriptions given X 2. 07:29 Patient left the ED. sv Signatures: Dispatcher [employer] Danica Harris RN RN sv Salyer, Edna es Munoz, Edgar RN ANAMARIA Wendy Bethea RN RN [facility] Tevin Harrell MD MD [facility]
--- NOTE | 2020-08-29 07:02 | EDPHYS ---
Physician Documentation [facility] Name: Sangita Hendrxi Age: 74 yrs Sex: Female : 1945 Arrival Date: 08/29/2020 Time: 04:16 Bed 6 Private MD: Nam Alexander R ED Physician Tevin Harrell HPI: 08/29 05:00 This 74 yrs old Black Female presents to ER via Ambulatory with complaints of mh7 Non-Productive Cough. 05:00 The patient or guardian reports cough, that is intermittent, described as moderate, mh7 with no sputum. Onset: The symptoms/episode began/occurred 2 day(s) ago. Severity of symptoms: At their worst the symptoms were moderate, 2 day(s) ago, in the emergency department the symptoms have improved, moderately. Modifying factors: The symptoms are alleviated by nothing, the symptoms are aggravated by exertion. Associated signs and symptoms: Pertinent positives: rhinorrhea, sore throat, SOB on exertion, this patient has no pertinent positive symptoms Pertinent negatives: chest pain, diarrhea, ear ache, fever, nausea, sore throat, vomiting. Historical: - Allergies: 04:27 PENICILLINS; em - Home Meds: 05:07 clopidogrel 75 mg oral tab 1 tab once daily [Active]; memantine 5 mg oral tab 1 tab em once daily [Active]; Lasix 40 mg Oral tab [Active]; amiodarone 200 mg Oral tab [Active]; aspirin 81 mg Oral tab [Active]; tramadol 50 mg Oral tab as needed for pain [Active]; rosuvastatin 20 mg oral tab 1 tab once daily [Active]; carvedilol 6.25 mg oral tab [Active]; Entresto 24-26 mg oral tab [Active]; - PMHx: 04:27 Pacemaker; Diabetes - IDDM; CHF; BRADYCARDIA; Dementia; Gout; em - PSHx: 04:27 hysterectomy; em - Immunization history:: Adult Immunizations up to date. - Social history:: Smoking status: Patient denies any tobacco usage or history of. ROS: 05:00 Constitutional: Negative for fever, chills, and weight loss, Eyes: Negative for injury, mh7 pain, redness, and discharge, Neck: Negative for injury, pain, and swelling, Cardiovascular: Negative for chest pain, palpitations, and edema, Abdomen/GI: Negative for abdominal pain, nausea, vomiting, diarrhea, and constipation, Back: Negative for injury and pain, : Negative for injury, bleeding, discharge, and swelling, MS/Extremity: Negative for injury and deformity, Skin: Negative for injury, rash, and discoloration, Neuro: Negative for headache, weakness, numbness, tingling, and seizure, Psych: Negative for depression, anxiety, suicide ideation, homicidal ideation, and hallucinations, Allergy/Immunology: Negative for hives, rash, and allergies, Endocrine: Negative for neck swelling, polydipsia, polyuria, polyphagia, and marked weight changes, Hematologic/Lymphatic: Negative for swollen nodes, abnormal bleeding, and unusual bruising. Exam: 05:00 Constitutional: This is a well developed, well nourished patient who is awake, alert, mh7 and in no acute distress. Head/Face: Normocephalic, atraumatic. Eyes: Pupils equal round and reactive to light, extra-ocular motions intact. Lids and lashes normal. Conjunctiva and sclera are non-icteric and not injected. Cornea within normal limits. Periorbital areas with no swelling, redness, or edema. ENT: Nares patent. No nasal discharge, no septal abnormalities noted. Tympanic membranes are normal and external auditory canals are clear. Oropharynx with no redness, swelling, or masses, exudates, or evidence of obstruction, uvula midline. Mucous membranes moist. Neck: Trachea midline, no thyromegaly or masses palpated, and no cervical lymphadenopathy. Supple, full range of motion without nuchal rigidity, or vertebral point tenderness. No Meningismus. Chest/axilla: Normal chest wall appearance and motion. Nontender with no deformity. No lesions are appreciated. Cardiovascular: Regular rate and rhythm with a normal S1 and S2. No gallops, murmurs, or rubs. Normal PMI, no JVD. No pulse deficits. Respiratory: Lungs have equal breath sounds bilaterally, clear to auscultation and percussion. No rales, rhonchi or wheezes noted. No increased work of breathing, no retractions or nasal flaring. Abdomen/GI: Soft, non-tender, with normal bowel sounds. No distension or tympany. No guarding or rebound. No evidence of tenderness throughout. Back: No spinal tenderness. No costovertebral tenderness. Full range of motion. Skin: Warm, dry with normal turgor. Normal color with no rashes, no lesions, and no evidence of cellulitis. MS/ Extremity: Pulses equal, no cyanosis. Neurovascular intact. Full, normal range of motion. Neuro: Awake and alert, GCS 15, oriented to person, place, time, and situation. Cranial nerves II-XII grossly intact. Motor strength 5/5 in all extremities. Sensory grossly intact. Cerebellar exam normal. Normal gait. Psych: Awake, alert, with orientation to person, place and time. Behavior, mood, and affect are within normal limits. Vital Signs: 04:25 BP 124 / 63; Pulse 83; Resp 18; Temp 96.7; Pulse Ox 100% on R/A; Weight 99.79 kg; em Height 5 ft. 4 in. (162.56 cm); Pain 0/10; 05:30 BP 146 / 72; Pulse 70; Resp 14; Pulse Ox 100% on R/A; lp1 06:29 BP 126 / 89; Pulse 64; Resp 19; Pulse Ox 99% on R/A; lp1 04:25 Body Mass Index 37.76 (99.79 kg, 162.56 cm) em MDM: 06:59 Differential Diagnosis: Obstructed Airway Bronchitis Influenza Upper Respiratory mh7 Infection Allergic Rhinitis Viral Syndrome Pneumonia. Data reviewed: vital signs, nurses notes, old medical records, lab test result(s), cardiac enzymes, CBC, electrolytes, EKG, radiologic studies, plain films. Data interpreted: Pulse oximetry: on room air is 99 %. Interpretation: normal. Counseling: I had a detailed discussion with the patient and/or guardian regarding: the historical points, exam findings, and any diagnostic results supporting the discharge/admit diagnosis, lab results, radiology results, the need for outpatient follow up, to return to the emergency department if symptoms worsen or persist or if there are any questions or concerns that arise at home. Response to treatment: the patient's symptoms have markedly improved after treatment. 07:01 [facility] 08/29 04:51 Order name: Basic Metabolic Panel 08/29 04:51 Order name: CBC with Diff em 08/29 04:51 Order name: LFT's; Complete Time: 06:13 em 08/29 04:51 Order name: Magnesium; Complete Time: 06:13 em 08/29 04:51 Order name: NT PRO-BNP; Complete Time: 06:13 em 08/29 04:51 Order name: PT-INR; Complete Time: 06:01 em 08/29 04:51 Order name: Troponin (emerg Dept Use Only); Complete Time: 06:13 em 08/29 04:51 Order name: XRAY Chest (1 view) em 08/29 04:51 Order name: EKG; Complete Time: 04:51 em 08/29 04:51 Order name: Basic Metabolic Panel; Complete Time: 06:13 EDMS 08/29 04:51 Order name: CBC with Automated Diff; Complete Time: 06:01 EDMS 08/29 05:18 Order name: COVID-19 : Document "Date of Symptom Onset" if Symptomatic. tt3 08/29 06:30 Order name: SARS-COV-2 RT PCR; Complete Time: 06:35 EDMS 08/29 04:51 Order name: Cardiac monitoring; Complete Time: 05:28 em 08/29 04:51 Order name: EKG - Nurse/Tech; Complete Time: 05:28 em 08/29 04:51 Order name: IV Saline Lock; Complete Time: 05:28 em 08/29 04:51 Order name: Labs collected and sent; Complete Time: 05:28 em 08/29 04:51 Order name: O2 Per Protocol; Complete Time: 04:52 em 08/29 04:51 Order name: O2 Sat Monitoring; Complete Time: 04:52 em Administered Medications: No medications were administered Disposition Summary: 08/29/20 07:01 Discharge Ordered [facility] Problem[facility] Symptoms: have improved [facility] Condition: Stable [facility] Diagnosis - Upper Respiratory Infection [facility] Followup: [facility] - With: Private Physician - When: 1 - 2 days - Reason: Worsening of condition, Recheck today's complaints, Continuance of care, Re-evaluation by your physician Discharge Instructions: - Discharge Summary Sheet [facility] - Upper Respiratory Infection, Adult, [id number] Forms: - Medication Reconciliation Form [facility] - Thank You Letter [facility] - Antibiotic Education [facility] - Prescription Opioid Use [facility] Prescriptions: - Tessalon Perles 100 mg Oral Capsule - take 1 capsule by ORAL route every 8 hours As needed; 15 capsule; Refills: 0, [facility] Product Selection Permitted - Zithromax Z-Nicholas 250 mg Oral Tablet - take 1 tablet by ORAL route as directed for 5 days Day 1 - take two (2) tablets mh7 one time. Day 2, 3, 4 , 5 take one (1) tablet once daily.; 6 tablet; Refills: 0, Product Selection Permitted Signatures: Dispatcher [employer] Toro Renee RN RN em Holmes, Maurice, MD MD mh7 Corrections: (The following items were deleted from the chart) 05:21 05:19 CORONAVIRUS ordered. ANNIAR MAGED
[2020-08-29 07:35] VITALS: TEMP 96.7
[2020-08-29 07:38] VITALS: BP 126/89; O2SAT 99
--- NOTE | 2020-08-29 08:58 | RAD REPORT ---
EXAM DESCRIPTION: RAD - Chest Single View - 08/29/2020 5:15 am CLINICAL HISTORY: DYSPNEA Chest pain. COMPARISON: Chest Single View dated 03/21/2019; Chest Single View dated 05/29/2017; Chest Single View d ated 04/25/2017; Chest Single View dated 02/25/2017 FINDINGS: Portable technique limits examination quality. The lungs are grossly clear. The heart is normal in size. No displaced fractures.Single lead pacer/ d efibrillator device is present. IMPRESSION: No acute intrathoracic process suspected.
--- NOTE | 2020-08-29 16:06 | EKG ---
Test Date: 2020-08-29 Test Time: 05:12:27 Promotions Producer: DEEPTHI MEASUREMENT RESULTS: Intervals: Rate: 68 KS: 226 QRSD: 116 QT: 484 QTc: 514 [place]: P: 71 KS: 226 QRS: -25 T: 82 INTERPRETIVE STATEMENTS: Sinus rhythm with 1st degree AV block Septal infarct, age undetermined Prolonged QT Abnormal ECG Compared to ECG 03/21/2019 15:29:26 Prolonged QT interval now present ST (T wave) deviation no longer present Possible ischemia no longer present Myocardial infarct finding still present Electronically Signed On 08-29-20 16:03:54 CDT by Khurram Stone
== END 2020-08-29 07:29 | disposition home or self-care (01) ==
LOC: ER 04:12
DX: J06.9 Acute upper respiratory infection, unspecified (principal); E11.9 Type 2 diabetes mellitus without complications; Z20.822 Contact with and (suspected) exposure to COVID-19; Z79.82 Long term (current) use of aspirin; Z88.0 Allergy status to penicillin; Z95.0 Presence of cardiac pacemaker
CPT/HCPCS: 93005; 85025; 80048; 36415; 83735; 85610; 80076; 84484; 83880; 71045; 99284; U0003

== ENCOUNTER 2020-11-11 15:06 | Emergency (ER) | payer OTHER ==
[2020-11-11] MEDS ORDERED: HYDROCODONE/APAP 7.5/325 MG TAB ONE (17:18)
--- NOTE | 2020-11-11 17:59 | RAD REPORT ---
EXAM DESCRIPTION: RAD - Knee Right 3 View - 11/11/2020 5:37 pm CLINICAL HISTORY: PAIN COMPARISON: No comparisons FINDINGS: No acute fracture. No malalignment. Enthesopathic changes along the proximal pole of the p atella. Nonaggressive appearing cartilaginous lesion in the mid to distal femoral diaphysis . IMPRESSION: No acute osseous abnormality involving the right knee.
--- NOTE | 2020-11-11 18:21 | ER ---
Nurse's Notes [facility] Name: Sangita Hendrix Age: 75 yrs Sex: Female : 1945 Arrival Date: 11/11/2020 Time: 15:10 Bed 17 Private MD: Nam Alexander R Diagnosis: Pain in right knee Presentation: 11/11 15:14 Chief complaint: Patient states: that she fell in August, and has had knee pain off and ap3 on since. She has been seen by her PCP, and was dx with arthritis. Coronavirus screen: At this time, the client does not indicate any symptoms associated with coronavirus-19. Ebola Screen: No symptoms or risks identified at this time. Initial Sepsis Screen: Does the patient meet any 2 criteria? No. Patient's initial sepsis screen is negative. Does the patient have a suspected source of infection? No. Patient's initial sepsis screen is negative. Risk Assessment: Do you want to hurt yourself or someone else? Patient reports no desire to harm self or others. Onset of symptoms was August 2020. 15:14 Method Of Arrival: Ambulatory ap3 15:14 Acuity: MADISYN 4 ap3 Triage Assessment: 15:20 General: Appears in no apparent distress. Behavior is calm, cooperative. Pain: ap3 Complains of pain in right knee Pain currently is 10 out of 10 on a pain scale. Respiratory: Airway is patent Respiratory effort is even, unlabored, Respiratory pattern is regular, symmetrical. Historical: - Allergies: 15:19 PENICILLINS; ap3 - Home Meds: 15:19 acetaminophen-codeine 300-30 mg Oral tab 1 tab every 4 hours [Active]; allopurinol 300 ap3 mg Oral tab 1 tab once daily [Active]; amiodarone 200 mg Oral tab [Active]; aspirin 81 mg Oral tab [Active]; carvedilol 6.25 mg Oral tab [Active]; clopidogrel 75 mg Oral tab 1 tab once daily [Active]; Coreg 6.25 mg Oral tab 1 tab [Active]; Entresto 24-26 mg Oral tab [Active]; Lantus Sub-Q 100 unit/mL [Active]; Lasix 40 mg Oral tab [Active]; memantine 5 mg Oral tab 1 tab once daily [Active]; potassium chloride 20 mEq Oral TbER 1 tab once daily [Active]; rosuvastatin 20 mg Oral tab 1 tab once daily [Active]; tramadol 50 mg Oral tab as needed for Pain [Active]; - PMHx: 15:19 BRADYCARDIA; CHF; Dementia; Diabetes - IDDM; Gout; Pacemaker; ap3 - PSHx: 15:19 hysterectomy; ap3 - Immunization history:: Client reports receiving the Cory \T\ Cory single-dose vaccine. Date received May 2020. - Social history:: Smoking status: Patient denies any tobacco usage or history of. Screenin:20 Abuse screen: Denies threats or abuse. Nutritional screening: No deficits noted. ap3 Tuberculosis screening: No symptoms or risk factors identified. Vital Signs: 15:14 BP 156 / 64 RA (auto/lg); Pulse 56; Resp 19; Temp 97.2; Pulse Ox 100% on R/A; Weight ap3 97.52 kg; Height 5 ft. 3 in. (160.02 cm); Pain 10/10; 18:43 BP 186 / 98; Pulse 60; Resp 16; Pulse Ox 98% ; Pain 2/10; tc5 15:14 Body Mass Index 38.09 (97.52 kg, 160.02 cm) ap3 ED Course: 15:10 Patient arrived in ED. mr 15:10 Nam Alexander MD is Private Physician. mr 15:15 Triage completed. ap3 15:20 Arm band placed on right wrist. ap3 16:11 Getachew Chung MD is Attending Physician. kdr 16:20 Sepideh Capps RN is Primary Nurse. tc5 17:37 Knee Right 3 View XRAY In Process Unspecified. EDMS 18:20 Nam Alexander MD is Referral Physician. kdr Administered Medications: 16:55 Drug: [place] (HYDROcodone-acetaminophen) (7.5 mg-325 mg) 1 tabs Route: PO; tc5 18:07 Follow up: Response: No adverse reaction tc5 18:43 Follow up: Response: No adverse reaction; Pain is decreased tc5 Outcome: 18:20 Discharge ordered by . kdr 18:44 Patient left the ED. tc5 Signatures: Dispatcher [employer] EDWI Getachew Chung MD MD kdr FigueroaErlinda madison mr Nafisa Zacarias RN RN ap3 [place], Sepideh, RN RN tc5
--- NOTE | 2020-11-11 18:22 | EDPHYS ---
Physician Documentation [facility] Name: Sangita Hendrix Age: 75 yrs Sex: Female : 1945 Arrival Date: 11/11/2020 Time: 15:10 Bed 17 Private MD: Nam Alexander R ED Physician Getachew Chung HPI: 11/11 18:00 This 75 yrs old Black Female presents to ER via Ambulatory with complaints of Knee Pain.kdr 18:00 The patient presents with decreased range of motion, an injury, pain, that is chronic, kdr tenderness. The complaints affect the right knee. Context: The problem was sustained at home, resulted from a direct blow, the patient can partially bear weight, the patient is able to ambulate, with mild difficulty, Problem is a result from a previous injury: No. Onset: The symptoms/episode began/occurred 2 month(s) ago. Treatment prior to arrival includes: no previous treatment. Severity of symptoms: At their worst the symptoms were mild, moderate, just prior to arrival, in the emergency department the symptoms are unchanged. The patient has not experienced similar symptoms in the past. The patient fell about 2 months ago on her right knee has continued to have pain since then. She did follow-up with Dr. Molina and was told that she had arthritis in her knee. The pain is continued and she is concerned that there may be injuries not otherwise detected since she had not had any plain films or x-rays of the knee. Historical: - Allergies: 15:19 PENICILLINS; ap3 - Home Meds: 15:19 acetaminophen-codeine 300-30 mg Oral tab 1 tab every 4 hours [Active]; allopurinol 300 ap3 mg Oral tab 1 tab once daily [Active]; amiodarone 200 mg Oral tab [Active]; aspirin 81 mg Oral tab [Active]; carvedilol 6.25 mg Oral tab [Active]; clopidogrel 75 mg Oral tab 1 tab once daily [Active]; Coreg 6.25 mg Oral tab 1 tab [Active]; Entresto 24-26 mg Oral tab [Active]; Lantus Sub-Q 100 unit/mL [Active]; Lasix 40 mg Oral tab [Active]; memantine 5 mg Oral tab 1 tab once daily [Active]; potassium chloride 20 mEq Oral TbER 1 tab once daily [Active]; rosuvastatin 20 mg Oral tab 1 tab once daily [Active]; tramadol 50 mg Oral tab as needed for Pain [Active]; - PMHx: 15:19 BRADYCARDIA; CHF; Dementia; Diabetes - IDDM; Gout; Pacemaker; ap3 - PSHx: 15:19 hysterectomy; ap3 - Immunization history:: Client reports receiving the Cory \T\ Cory single-dose vaccine. Date received May 2020. - Social history:: Smoking status: Patient denies any tobacco usage or history of. ROS: 18:00 Constitutional: Negative for fever, chills, and weight loss, Eyes: Negative for injury, kdr pain, redness, and discharge, Neck: Negative for injury, pain, and swelling, Cardiovascular: Negative for chest pain, palpitations, and edema, Respiratory: Negative for shortness of breath, cough, wheezing, and pleuritic chest pain, Abdomen/GI: Negative for abdominal pain, nausea, vomiting, diarrhea, and constipation, Back: Negative for injury and pain, : Negative for injury, bleeding, discharge, and swelling, Skin: Negative for injury, rash, and discoloration, Neuro: Negative for headache, weakness, numbness, tingling, and seizure activity. 18:00 MS/extremity: Positive for injury or acute deformity, decreased range of motion, pain, tenderness, Negative for abrasion, bite, deformity, erythema, laceration, paresthesias, puncture, rash, warmth. Exam: 18:00 Constitutional: This is a well developed, well nourished patient who is awake, alert, kdr and in no acute distress. 18:00 Musculoskeletal/extremity: Extremities: grossly normal except: noted in the right knee: decreased ROM, pain, tenderness, Her pain is primarily infrapatellar. There is no other obvious injury. She has limited range of motion secondary to mild discomfort. Her joint is not hot. Vital Signs: 15:14 BP 156 / 64 RA (auto/lg); Pulse 56; Resp 19; Temp 97.2; Pulse Ox 100% on R/A; Weight ap3 97.52 kg; Height 5 ft. 3 in. (160.02 cm); Pain 10/10; 18:43 BP 186 / 98; Pulse 60; Resp 16; Pulse Ox 98% ; Pain 2/10; tc5 15:14 Body Mass Index 38.09 (97.52 kg, 160.02 cm) ap3 MDM: 18:20 Patient medically screened. kdr 20:18 Data reviewed: vital signs, nurses notes, radiologic studies. Counseling: I had a kdr detailed discussion with the patient and/or guardian regarding: the historical points, exam findings, and any diagnostic results supporting the discharge/admit diagnosis, radiology results, the need for outpatient follow up. 11/11 16:44 Order name: Knee Right 3 View XRAY; Complete Time: 18:18 kdr 11/11 18:19 Order name: Herb Wrap: Right knee kdr Administered Medications: 16:55 Drug: [place] (HYDROcodone-acetaminophen) (7.5 mg-325 mg) 1 tabs Route: PO; tc5 18:07 Follow up: Response: No adverse reaction tc5 18:43 Follow up: Response: No adverse reaction; Pain is decreased tc5 Disposition Summary: 11/11/20 18:20 Discharge Ordered Location: Home kdr Problem: an ongoing problem kdr Symptoms: have improved kdr Condition: Stable kdr Diagnosis - Pain in right knee kdr Followup: kdr - With: Nam Alexander MD - When: 2 - 3 days - Reason: If symptoms return, Recheck today's complaints, Continuance of care, Re-evaluation by your physician Discharge Instructions: - Discharge Summary Sheet kdr - Joint Pain kdr - Musculoskeletal Pain kdr - Acute Knee Pain, Adult kdr Forms: - Medication Reconciliation Form kdr - Thank You Letter kdr - Antibiotic Education kdr - Prescription Opioid Use kdr Prescriptions: - Tylenol-Codeine #3 300 mg-30 mg Oral - take 1 tablet by ORAL route every 4-6 hours As needed Take primarily at night kdr for sleep; 12 tablet; Refills: 0, Product Selection Permitted Signatures: Dispatcher [employer] Getachew Lama MD MD kdr Nafisa Zacarias RN RN ap3 Sepideh Capps RN RN tc5
[2020-11-11 18:48] VITALS: TEMP 97.2
[2020-11-11 18:50] VITALS: BP 186/98; O2SAT 98
== END 2020-11-11 18:44 | disposition home or self-care (01) ==
LOC: ER 15:06
DX: M25.561 Pain in right knee (principal); E11.9 Type 2 diabetes mellitus without complications; I50.9 Heart failure, unspecified; Z79.4 Long term (current) use of insulin; Z88.0 Allergy status to penicillin; Z95.0 Presence of cardiac pacemaker
CPT/HCPCS: 99283

== ENCOUNTER 2021-05-20 19:33 | Emergency (ER) | payer OTHER ==
--- OUTSIDE RECORDS SUMMARY | 2021-05-20 19:40 | XMS REPORT | Continuity of Care Document ---
:1945 Author Organization [facility] t Address [address] [place] [address] Care Team Providers Name Role Phone MARGA FORTUNE Primary Care Physician Unavailable FRANKI Attending Clinician Unavailable Franki VILLAGOMEZ Attending Clinician Gavino VILLAGOMEZ Attending Clinician FRANKI Admitting Clinician Unavailable Payers Payer Name Policy Type Policy Number Effective Date Expiration Date S ource HUMANA PPO SELECT [id number] 2018 ASO 00:00:00 HUMANA MEDICARE [id number] 2018 ADV 00:00:00 ERS MEDICARE [id number] ADVANTAGE PPO-[facility] MEDICARE [id number] ADVANTAGE PPO Problems Condition Condition Condition Status Onset Resolution Last Treating Co mments Source Name Details Category Date Date Treatment Clinician Date Increased Increased Disease Active [facility] BMI (body BMI (body 4-10 Janett ege mass mass 00:00: of index) index) 00 Medicin e Status Status Disease Active [facility] post post 1-28 College femorotibi femorotibi 00:00: of al bypass al bypass 00 Medi ed e PAD PAD Disease Active Overview: [facility] (periphera (periphera 5-15 [employer] l artery l artery 00:00: g of this of disease) disease) 00 note Medici n (HCCode) (HCCode) might be e different from the original. LEFT sp SFA stent occluded, occluded PT and Peroneal , patent AT PAD PAD Disease Active Overview: [facility] (periphera (periphera 5-15 LEFT sp C ollege l artery l artery 00:00: SFA stent of disease) disease) 00 occluded, Med icin (HCCode) (HCCode) occluded e PT and Peroneal , patent AT Essential Essential Disease Active [facility] hypertensi hypertensi 5-15 Co llege on on 00:00: of 00 Medicin e Pacemaker Pacemaker Disease Active Overview: [facility] 02-18 [facility] 00:00: g of this note Medicin might be e different from the original. PPM MDT [id number] Dr Gonzalez CAD CAD Disease Active Overview: [facility] (coronary (coronary 02-18 [facility] C ollege artery artery 00:00: g of this of disease) disease) 00 note Medici n might be e different from the original. Non obstructi ve as per cath 2009 Cardiomyop Cardiomyop Disease Active Overview : [facility] athy, athy, 02-18 [facility] ischemic ischemic 00:00: g of this note Medicin might be e different from the original. reported EF in the range 15% as of 2014 by TTE Hyperlipid Hyperlipid Disease Active [facility] emlorena emia [facility] Medicin e Type 2 Type 2 Disease Active [facility] diabetes diabetes Colle e mellitus mellitus of without without Medicin complicati complicati e on on (HCCode) (HCCode) Hypertensi Hypertensi Disease Active [facility] on on Kiana of Medicin e Allergies, Adverse Reactions, Alerts Allergy Allergy Status Severity Reaction(s) Onset Inactive Treating Comm ents Source Name Type Date Date Clinician PENICILL Allergy Active Hives [facility] 05-28 00:00: 00 Social History Social Habit Start Date Stop Date Quantity Comments Source Exposure to Not sure [facility] Sid patel SARS-CoV-2 of Medicine (event) Alcohol intake 2021-03-03 2021-03-03 Ex-drinker [facility] Col lege 00:00:00 00:00:00 (finding) of Medicine Tobacco use and 2018-05-28 2018-05-28 Smokeless tobacco [facility] exposure 00:00:00 00:00:00 non-user of Medicine Sex Ass[birth year] [facility] Co llege 00:00:00 00:00:00 of Medicine Smoking Status Start Date Stop Date Source Never smoked tobacco [facility] Janett ege of Medicine Medications Ordered Filled Start Stop Current Ordering Indication Dosage Frequency Signature Comments Components Source Medication Medication Date Date Medication? Clinician (SIG) Name Name CINTHIA Yes Take by [facility] ASPIRIN OR 1-12 mouth [place] 14:46: daily. of 23 Medicin e VITAMIN E Yes Take by [facility] OR 1-12 mouth. College 14:46: of 23 Medicin e Ascorbic Yes Take by [facility] Acid 1-12 mouth. College (VITAMIN C 14:46: of OR) 23 Medicin e furosemide Yes 40mg Take 40 mg [facility] (LASIX) 40 1-12 by mouth. Janett ege MG tablet 14:46: of 23 Medicin e clopidogrel Yes 75mg Take 1 [facility] (PLAVIX) 75 1-12 Tablet by Col lege MG Tablet 00:00: mouth of 00 daily. Medicin e gabapentin Yes 300mg Take 1 [facility] (NEURONTIN) 1-12 capsule by Co llege 300 MG 00:00: mouth 3 of capsule 00 times Medicin daily. e memantine 2020-02 Yes 5mg Take 5 mg [facility] (NAMENDA) 5 2-06 by mouth Janett ege MG tablet 00:00: daily. of 00 Medicin e BABY 2019-02 Yes Take by [facility] ASPIRIN OR 2-16 mouth [place] 21:49: daily. of 25 Medicin e VITAMIN E 2019-02 Yes Take by [facility] OR 2-16 mouth. College 21:49: of 25 Medicin e Ascorbic 2019-02 Yes Take by [facility] Acid 2-16 mouth. [place] (VITAMIN C 21:49: of OR) 25 Medicin e clopidogrel 2019-02 Yes 75mg Take 1 [facility] (PLAVIX) 75 2-16 Tablet by Col lege MG Tablet 00:00: mouth of 00 daily. Medicin e gabapentin 2019-02 Yes 300mg Take 1 [facility] (NEURONTIN) 2-16 capsule by Co llege 300 MG 00:00: mouth 3 of capsule 00 times Medicin daily. e clopidogrel 2019- No 75mg Take 1 [facility] (PLAVIX) 75 2-16 -12 Tablet by Co llege MG Tablet 00:00: 00:00 mouth of 00 :00 daily. Medicin e gabapentin 2019-02 No 300mg Take 1 [facility] (NEURONTIN) 2-16 -12 capsule by C ollege 300 MG 00:00: 00:00 mouth 3 of capsule 00 :00 times Medicin daily. e gabapentin 2019-02- No TAKE 1 [facility] (NEURONTIN) 2-14 12-16 CAPSULE BY C ollege 300 MG 00:00: 00:00 MOUTH of capsule 00 :00 THREE Medicin TIMES e DAILY acetaminoph 2019-02 Yes 1{tbl} Take 1 [facility] en-codeine 2-07 Tablet by Janett ege (TYLENOL 00:00: mouth of #3) 300-30 00 every 6 Medici n MG per hours as e tablet needed for Pain. acetaminoph 2019-02- No 1{tbl} Take 1 [facility] en-codeine 2-07 -12 Tablet by Col lege (TYLENOL 00:00: 00:00 mouth of #3) 300-30 00 :00 every 6 Medici n MG per hours as e tablet needed for Pain. clopidogrel 2019-02- No 75mg Take 1 [facility] (PLAVIX) 75 2-07 12-16 Tablet by Co llege MG Tablet 00:00: 00:00 mouth of 00 :00 daily. Medicin e tramadol 2019-02 Yes 50mg Take 50 mg [facility] (ULTRAM) 50 1-14 by mouth. Col lege MG tablet 00:00: of 00 Medicin e BABY 2019-02 Yes Take by [facility] ASPIRIN OR 0-07 mouth College 18:07: daily. of 00 Medicin e VITAMIN E 2019-1 Yes Take by [facility] OR 0-07 mouth. College 18:07: of 00 Medicin e Ascorbic 2019-1 Yes Take by [facility] Acid 0-07 mouth. College (VITAMIN C 18:07: of OR) 00 Medicin e VITAMIN E 2020-0 Yes Take by [facility] OR 7-08 mouth. College 16:07: of 30 Medicin e Ascorbic 2020-0 Yes Take by [facility] Acid 7-08 mouth. College (VITAMIN C 16:07: of OR) 30 Medicin e BABY 2019-0 Yes Take by [facility] ASPIRIN OR 7-08 mouth College 16:06: daily. of 52 Medicin e clopidogrel 2020-0 2020- No 75mg Take 1 Tab [facility] (PLAVIX) 75 7-08 10-07 by mouth Col lege MG Tablet 00:00: 04:59 daily for of 00 :00 90 days. Medicin e clopidogrel 2020-0 2020- No 75mg Take 1 Tab [facility] (PLAVIX) 75 6-05 07-08 by mouth Col lege MG Tablet 00:00: 00:00 daily for of 00 :00 90 days. Medicin e gabapentin 2020-0 Yes TAKE 1 [facility] (NEURONTIN) 5-12 CAPSULE BY Co llege 300 MG 00:00: MOUTH of capsule 00 THREE Medicin TIMES e DAILY gabapentin 2020-0 Yes TAKE 1 [facility] (NEURONTIN) 5-12 CAPSULE BY Co llege 300 MG 00:00: MOUTH of capsule 00 THREE Medicin TIMES e DAILY Clopidogrel 2020-0 Yes Take by [facility] Bisulfate 4-08 mouth. [facility] (PLAVIX OR) 16:06: of 03 Medicin e BABY 2020-0 Yes Take by [facility] ASPIRIN OR 4-08 mouth [place] 16:06: daily. of 03 Medicin e Clopidogrel 2020-0 Yes Take by [facility] Bisulfate 1-15 mouth. [facility] (PLAVIX OR) 16:26: of 10 Medicin e BABY 2020-0 Yes Take by [facility] ASPIRIN OR 1-15 mouth [place] 16:26: daily. of 10 Medicin e Clopidogrel 2020-0 Yes Take by [facility] Bisulfate 1-15 mouth. [place] (PLAVIX OR) 16:26: of 10 Medicin e BABY 2020-0 Yes Take by [facility] ASPIRIN OR 1-15 mouth [place] 16:26: daily. of 10 Medicin e gabapentin 2020-0 Yes 300mg Take 1 Cap [facility] (NEURONTIN) 1-03 by mouth 3 Co llege 300 MG 00:00: times of capsule 00 daily. Medicin e gabapentin 2020-0 Yes 300mg Take 1 Cap [facility] (NEURONTIN) 1-03 by mouth 3 Co llege 300 MG 00:00: times of capsule 00 daily. Medicin e gabapentin 2020-0 Yes 300mg Take 1 Cap [facility] (NEURONTIN) 1-03 by mouth 3 Co llege 300 MG 00:00: times of capsule 00 daily. Medicin e acetaminoph 2019-1 2020- No 650mg Take 650 [facility] en 325 mg 1-29 11-24 mg by College tablet 00:00: 05:59 mouth. of 00 :00 Medicin e acetaminoph 2018-02 2020- No 650mg Take 650 [facility] en 325 mg 1-29 11-24 mg by College tablet 00:00: 05:59 mouth. of 00 :00 Medicin e acetaminoph 2018-02 2020- No 650mg Take 650 [facility] en 325 mg 1-29 11-24 mg by College tablet 00:00: 05:59 mouth. of 00 :00 Medicin e acetaminoph 2018-02 2020- No 650mg Take 650 [facility] en 325 mg 1-29 11-24 mg by College tablet 00:00: 05:59 mouth. of 00 :00 Medicin e acetaminoph 2018-02- No 650mg Take 650 [facility] en 325 mg 1-29 11-24 mg by College tablet 00:00: 05:59 mouth. of 00 :00 Medicin e Clopidogrel 0 Yes Take by [facility] Bisulfate 9-30 mouth. [facility] (PLAVIX OR) 21:13: of 04 Medicin e BABY Yes Take by [facility] ASPIRIN OR 9-30 mouth [place] 21:13: daily. of 04 Medicin e rosuvastati 0 Yes [facility] (CRESTOR) 4-03 College 20 MG 00:00: of tablet 00 Medicin e acetaminoph 2018-0 Yes TK 1 T PO [facility] en-codeine 4-03 QD. [facility] (TYLENOL 00:00: of #3) 300-30 00 Medicin MG per e tablet rosuvastati 2018-0 Yes [facility] (CRESTOR) 4-03 College 20 MG 00:00: of tablet 00 Medicin e acetaminoph 2018-0 Yes TK 1 T PO [facility] en-codeine 4-03 QD. [facility] (TYLENOL 00:00: of #3) 300-30 00 Medicin MG per e tablet rosuvastati 2018-0 Yes [facility] (CRESTOR) 4-03 College 20 MG 00:00: of tablet 00 Medicin e acetaminoph 2018-0 Yes TK 1 T PO [facility] en-codeine 4-03 QD. [place] (TYLENOL 00:00: of #3) 300-30 00 Medicin MG per e tablet rosuvastati 2019-0 Yes [facility] (CRESTOR) 4-03 College 20 MG 00:00: of tablet 00 Medicin e acetaminoph 2019-0 Yes TK 1 T PO [facility] en-codeine 4-03 QD. College (TYLENOL 00:00: of #3) 300-30 00 Medicin MG per e tablet rosuvastati 2019-0 Yes [facility] (CRESTOR) 4-03 College 20 MG 00:00: of tablet 00 Medicin e acetaminoph 2019-0 Yes TK 1 T PO [facility] en-codeine 4-03 QD. College (TYLENOL 00:00: of #3) 300-30 00 Medicin MG per e tablet acetaminoph 2019-0 Yes TK 1 T PO [facility] en-codeine 4-03 QD. College (TYLENOL 00:00: of #3) 300-30 00 Medicin MG per e tablet rosuvastati 2019-0 Yes [facility] (CRESTOR) 4-03 College 20 MG 00:00: of tablet 00 Medicin e rosuvastati 2019-0 Yes [facility] (CRESTOR) 4-03 College 20 MG 00:00: of tablet 00 Medicin e rosuvastati 2019-0 Yes [facility] (CRESTOR) 4-03 College 20 MG 00:00: of tablet 00 Medicin e ENTRESTO 2019-0 Yes TK 1 T PO [facility] 24-26 MG 4-01 Q 12 H College TABS 00:00: of 00 Medicin e ENTRESTO 2019-0 Yes TK 1 T PO [facility] 24-26 MG 4-01 Q 12 H College TABS 00:00: of 00 Medicin e ENTRESTO 2019-0 Yes TK 1 T PO [facility] 24-26 MG 4-01 Q 12 H College TABS 00:00: of 00 Medicin e ENTRESTO 2019-0 Yes TK 1 T PO [facility] 24-26 MG 4-01 Q 12 H College TABS 00:00: of 00 Medicin e ENTRESTO 2019-0 Yes TK 1 T PO [facility] 24-26 MG 4-01 Q 12 H College TABS 00:00: of 00 Medicin e ENTRESTO 2019-0 Yes [facility] 24-26 MG 4-01 College TABS 00:00: of 00 Medicin e ENTRESTO 2019-0 Yes TK 1 T PO [facility] 24-26 MG 4-01 Q 12 H College TABS 00:00: of 00 Medicin e ENTRESTO 2019-0 Yes TK 1 T PO [facility] 24-26 MG 4-01 Q 12 H College TABS 00:00: of 00 Medicin e memantine 2019-0 Yes TK 1 T PO [facility] (NAMENDA) 3-28 BID College 10 MG 00:00: of tablet 00 Medicin e memantine Yes TK 1 T PO [facility] (NAMENDA) 3-28 BID College 10 MG 00:00: of tablet 00 Medicin e memantine 2018- Yes TK 1 T PO [facility] (NAMENDA) 3-28 BID College 10 MG 00:00: of tablet Medicin e memantine Yes TK 1 T PO [facility] (NAMENDA) 3-28 BID College 10 MG 00:00: of tablet 00 Medicin e memantine Yes TK 1 T PO [facility] (NAMENDA) 3-28 BID College 10 MG 00:00: of tablet Medicin e memantine Yes 10mg 10 mg [facility] (NAMENDA) 3-28 daily. College 10 MG 00:00: of tablet Medicin e memantine 2018- Yes TK 1 T PO [facility] (NAMENDA) 3-28 BID College 10 MG 00:00: of tablet Medicin e memantine 2018- Yes TK 1 T PO [facility] (NAMENDA) 3-28 BID College 10 MG 00:00: of tablet Medicin e potassium 2018- Yes TK 1 T PO [facility] chloride [address] ([place], 00:00: of KLOR-CON Medicin M20) 20 MEQ e tablet potassium 2018- Yes TK 1 T PO [facility] raj chloride SA [address] ([place], 00:00: of KLOR-CON Medicin M20) 20 MEQ e tablet potassium 2018- Yes TK 1 T PO [facility] raj chloride SA [address] ([place], 00:00: of KLOR-CON Medicin M20) 20 MEQ e tablet potassium 2018- Yes TK 1 T PO [facility] raj chloride SA [address] ([place], 00:00: of KLOR-CON Medicin M20) 20 MEQ e tablet potassium Yes TK 1 T PO [facility] raj chloride SA 04-22 [facility] ([place], 00:00: of KLOR-CON Medicin M20) 20 MEQ e tablet potassium Yes TK 1 T PO [facility] raj chloride SA 04-22 [facility] (K-DUR, 00:00: of KLOR-CON Medicin M20) 20 MEQ e tablet potassium Yes TK 1 T PO [facility] raj chloride SA 04-22 [facility] (K-DUR, 00:00: of KLOR-CON Medicin M20) 20 MEQ e tablet potassium 2021- No TK 1 T PO [facility] chloride SA 04-22 [facility] ([facility], 00:00: 00:00 of KLOR-CON 00 :00 Medicin M20) 20 MEQ e tablet LANTUS 100 Yes INJECT 20 [facility] UNIT/ML 3-01 UNITS College injection 00:00: SUBCUTANEO of 00 USLY D. Medicin e LANTUS 100 Yes INJECT 20 [facility] UNIT/ML 3-01 UNITS College injection 00:00: SUBCUTANEO of 00 USLY D. Medicin e LANTUS 100 Yes INJECT 20 [facility] UNIT/ML 3-01 UNITS College injection 00:00: SUBCUTANEO of 00 USLY D. Medicin e LANTUS 100 Yes INJECT 20 [facility] UNIT/ML 3-01 UNITS College injection 00:00: SUBCUTANEO of 00 USLY D. Medicin e LANTUS 100 Yes INJECT 20 [facility] UNIT/ML 3-01 UNITS College injection 00:00: SUBCUTANEO of 00 USLY D. Medicin e LANTUS 100 Yes Inject [facility] UNIT/ML 3-01 into the College injection 00:00: skin. of 00 Medicin e LANTUS 100 Yes INJECT 20 [facility] UNIT/ML 3-01 UNITS College injection 00:00: SUBCUTANEO of 00 USLY D. Medicin e LANTUS 100 Yes INJECT 20 [facility] UNIT/ML 3-01 UNITS College injection 00:00: SUBCUTANEO of 00 USLY D. Medicin e carvedilol 2018 Yes TK 1 T PO [facility] (COREG) 2-19 BID [facility] 6.25 MG 00:00: of tablet 00 Medicin e carvedilol Yes TK 1 T PO [facility] (COREG) 2-19 BID College 6.25 MG 00:00: of tablet 00 Medicin e carvedilol Yes TK 1 T PO [facility] (COREG) 2-19 BID College 6.25 MG 00:00: of tablet Medicin e carvedilol Yes TK 1 T PO [facility] (COREG) 2-19 BID College 6.25 MG 00:00: of tablet 00 Medicin e carvedilol Yes TK 1 T PO [facility] (COREG) 2-19 BID College 6.25 MG 00:00: of tablet Medicin e carvedilol Yes TK 1 T PO [facility] (COREG) 2-19 BID College 6.25 MG 00:00: of tablet Medicin e carvedilol Yes TK 1 T PO [facility] (COREG) 2-19 BID College 6.25 MG 00:00: of tablet Medicin e carvedilol Yes TK 1 T PO [facility] (COREG) 2-19 BID College 6.25 MG 00:00: of tablet Medicin e amiodarone Yes TK 1 T PO [facility] (PACERONE) 2-12 QD College 200 MG 00:00: of tablet Medicin e amiodarone Yes TK 1 T PO [facility] (PACERONE) 2-12 QD College 200 MG 00:00: of tablet 00 Medicin e amiodarone Yes TK 1 T PO [facility] (PACERONE) 2-12 QD College 200 MG 00:00: of tablet 00 Medicin e amiodarone Yes TK 1 T PO [facility] (PACERONE) 2-12 QD College 200 MG 00:00: of tablet 00 Medicin e amiodarone Yes TK 1 T PO [facility] (PACERONE) 2-12 QD College 200 MG 00:00: of tablet 00 Medicin e amiodarone 2019-0 Yes 200mg 200 mg [facility] (PACERONE) 2-12 daily. College 200 MG 00:00: of tablet 00 Medicin e amiodarone 2018-0 Yes TK 1 T PO [facility] (PACERONE) 2-12 QD College 200 MG 00:00: of tablet 00 Medicin e amiodarone 2018-0 Yes TK 1 T PO [facility] (PACERONE) 2-12 QD College 200 MG 00:00: of tablet 00 Medicin e Vital Signs Vital Name Observation Time Observation Value Comments Source WEIGHT 2020-01-18 05:39:00 99.111 kg HEIGHT 2020-01-18 05:39:00 162.6 cm Heart rate 2021-03-01 20:43:00 65 /min [facility] of [facility] Body height 2021-03-01 20:43:00 152.4 cm [facility] Body weight 2021-03-01 20:43:00 97.523 kg [facility] BMI 2021-03-01 20:43:00 41.99 kg/m2 [facility] Systolic blood 2020-02-03 21:48:00 156 mm[Hg] [facility] of pressure Medicine Diastolic blood 2020-02-03 21:48:00 73 mm[Hg] [facility] College of pressure Medicine Heart rate 2020-02-03 21:48:00 63 /min [facility] Body height 2020-02-03 21:48:00 152.4 cm [facility] Body weight 2020-02-03 21:48:00 97.523 kg [facility] BMI 2020-02-03 21:48:00 41.99 kg/m2 [facility] Systolic blood 2020-02-03 21:48:00 156 mm[Hg] [facility] of pressure Medicine Diastolic blood 2020-02-03 21:48:00 73 mm[Hg] [facility] College of pressure Medicine Heart rate 2020-02-03 21:48:00 63 /min [facility] Body height 2020-02-03 21:48:00 152.4 cm [facility] Body weight 2020-02-03 21:48:00 97.523 kg [facility] BMI 2020-02-03 21:48:00 41.99 kg/m2 [facility] WEIGHT 2020-01-18 05:39:00 99.111 kg HEIGHT 2020-01-18 05:39:00 162.6 cm WEIGHT 2020-01-15 08:13:00 100.245 kg HEIGHT 2020-01-15 08:13:00 162.6 cm WEIGHT 2020-01-15 08:13:00 100.245 kg HEIGHT 2020-01-15 08:13:00 162.6 cm Systolic blood 2019-11-25 18:06:00 150 mm[Hg] [facility] of pressure Medicine Diastolic blood 2019-11-25 18:06:00 84 mm[Hg] [facility] of pressure Medicine Heart rate 2019-11-25 18:06:00 67 /min [facility] Body height 2019-11-25 18:06:00 162.6 cm [facility] Body weight 2019-11-25 18:06:00 81.647 kg [facility] BMI 2019-11-25 18:06:00 30.90 kg/m2 [facility] Systolic blood 2019-11-25 18:06:00 150 mm[Hg] [facility] of pressure Medicine Diastolic blood 2019-11-25 18:06:00 84 mm[Hg] [facility] of pressure Medicine Heart rate 2019-11-25 18:06:00 67 /min [facility] Body height 2019-11-25 18:06:00 162.6 cm [facility] Body weight 2019-11-25 18:06:00 81.647 kg [facility] BMI 2019-11-25 18:06:00 30.90 kg/m2 [facility] Systolic blood 2019-08-26 16:05:00 164 mm[Hg] [facility] of pressure Medicine Diastolic blood 2019-08-26 16:05:00 89 mm[Hg] [facility] of pressure Medicine Heart rate 2019-08-26 16:05:00 65 /min [facility] Body height 2019-08-26 16:05:00 162.6 cm [facility] Body weight 2019-08-26 16:05:00 81.647 kg [facility] BMI 2019-08-26 16:05:00 30.90 kg/m2 [facility] Systolic blood 2019-08-26 16:05:00 164 mm[Hg] [facility] of pressure Medicine Diastolic blood 2019-08-26 16:05:00 89 mm[Hg] [facility] of pressure Medicine Heart rate 2019-08-26 16:05:00 65 /min [facility] Body height 2019-08-26 16:05:00 162.6 cm [facility] Body weight 2019-08-26 16:05:00 81.647 kg [facility] BMI 2019-08-26 16:05:00 30.90 kg/m2 [facility] Systolic blood 2019-05-27 16:05:00 167 mm[Hg] [facility] of pressure Medicine Diastolic blood 2019-05-27 16:05:00 90 mm[Hg] [facility] of pressure Medicine Heart rate 2019-05-27 16:05:00 60 /min [facility] Body height 2019-05-27 16:05:00 162.6 cm [facility] Body weight 2019-05-27 16:05:00 81.647 kg [facility] BMI 2019-05-27 16:05:00 30.90 kg/m2 [facility] Systolic blood 2019-05-27 16:05:00 167 mm[Hg] [facility] of pressure Medicine Diastolic blood 2019-05-27 16:05:00 90 mm[Hg] [facility] of pressure Medicine Heart rate 2019-05-27 16:05:00 60 /min [facility] Body height 2019-05-27 16:05:00 162.6 cm [facility] Body weight 2019-05-27 16:05:00 81.647 kg [facility] BMI 2019-05-27 16:05:00 30.90 kg/m2 [facility] Systolic blood 2019-03-18 15:08:00 135 mm[Hg] [facility] of pressure [facility] Diastolic blood 2019-03-18 15:08:00 68 mm[Hg] [facility] pressure Medicine Heart rate 2019-03-18 15:08:00 60 /min [facility] Body weight 2019-03-18 15:08:00 96.616 kg [facility] BMI 2019-03-18 15:08:00 36.56 kg/m2 [facility] Systolic blood 2019-03-18 15:08:00 135 mm[Hg] [facility] Medicine Diastolic blood 2019-03-18 15:08:00 68 mm[Hg] [facility] Medicine Heart rate 2019-03-18 15:08:00 60 /min [facility] Body weight 2019-03-18 15:08:00 96.616 kg [facility] BMI 2019-03-18 15:08:00 36.56 kg/m2 [facility] Body weight 2019-03-04 16:25:00 104.327 kg [facility] BMI 2019-03-04 16:25:00 39.48 kg/m2 [facility] Body weight 2019-03-04 16:25:00 104.327 kg [facility] BMI 2019-03-04 16:25:00 39.48 kg/m2 [facility] Systolic blood 2018-11-17 21:24:00 140 mm[Hg] [facility] Medicine Diastolic blood 2018-11-17 21:24:00 80 mm[Hg] [facility] Medicine Heart rate 2018-11-17 21:24:00 63 /min [facility] [employer] Body height 2018-11-17 21:11:00 162.6 cm [facility] [employer] Body weight 2018-11-17 21:11:00 102.967 kg [facility] [employer] BMI 2018-11-17 21:11:00 38.96 kg/m2 [facility] [employer] Systolic blood 2018-11-17 21:24:00 140 mm[Hg] [facility] of pressure Medicine Diastolic blood 2018-11-17 21:24:00 80 mm[Hg] [facility] Medicine Heart rate 2018-11-17 21:24:00 63 /min [facility] Body height 2018-11-17 21:11:00 162.6 cm [facility] Body weight 2018-11-17 21:11:00 102.967 kg [facility] BMI 2018-11-17 21:11:00 38.96 kg/m2 [facility] Procedures Procedure Date / Time Performing Clinician Source Performed ELECTROCARDIOGRAM COMPLETE 2018-11-17 22:58:11 Michael Mancia [facility] Plan of Care Planned Activity Planned Date Details Comments Source Future Scheduled 2021-03-03 Screening for Dash [employer] Test 09:26:26 malignant neoplasm of Medici ne of colon (procedure) [code = 069647570] Future Scheduled 2021-03-03 Screening for Dash [employer] Test 09:26:26 malignant neoplasm of Medici ne of breast (procedure) [code = 310125707] Future Scheduled 2021-03-03 Pneumococcal 65+ (1 [facility] or College Test 09:26:26 of 2 - PPSV23) [code of Medi cine = Pneumococcal 65+ (1 of 2 - PPSV23)] Future Scheduled 2021-03-03 COVID-19 Vaccine (1) [facility] Test 09:26:26 [code = COVID-19 of Medicine Vaccine (1)] Future Scheduled 2021-03-03 TETANUS SHOT (ADULT) [facility] Test 09:26:26 [code = TETANUS SHOT of Medi cine (ADULT)] Future Scheduled 2021-03-03 Diabetic foot [facility] Col [employer]ge Test 09:26:26 examination of Medicine (regime/therapy) [code = 059949912] Future Scheduled 2021-03-03 ANNUAL DIABETIC [facility] [employer]lege Test 09:26:26 RETINOPATHY of Medicine SCREENING [code = ANNUAL DIABETIC RETINOPATHY SCREENING] Future Scheduled 2021-03-03 Hepatitis C [facility] Janett [employer]ge Test 09:26:26 screening of Medicine (procedure) [code = 273825708] Future Scheduled 2021-03-03 ZOSTER VACCINE (1 of [facility] College Test 09:26:26 2) [code = ZOSTER of Medicin e VACCINE (1 of 2)] Future Scheduled 2021-03-03 Screening for Dash [employer] Test 09:26:26 osteoporosis of Medicine (procedure) [code = 142324464] Future Scheduled 2021-03-03 MEDICARE AWV Dash [facility] [employer] Test 09:26:26 (Initial) [code = of Medicin e MEDICARE AWV (Initial)] Future Scheduled 2021-03-03 BMI FOLLOW UP PLAN [employer] Test 09:26:26 [code = BMI FOLLOW of Medici ne UP PLAN] Future Scheduled 2021-03-03 FLU VACCINE > 6 [facility] C [facility]lege Test 09:26:26 MONTHS [code = FLU of Medici ne VACCINE > 6 MONTHS] Future Scheduled 2021-03-03 FALL SCREEN [code = [employer] Test 09:26:26 FALL SCREEN] of Medicine Future Scheduled 2021-03-01 US ARTERIAL LEG LEFT 1 Occurrences [employer] Test 14:57:35 [code = 16592] starting of Medicine 03/01/2021 until 03/01/2022 Future Scheduled BMI FOLLOW UP PLAN [employer] Test [code = BMI FOLLOW of Medici ne UP PLAN] Future Scheduled HEPATITIS C [facility] [employer] Test SCREENING [code = of Medicin e HEPATITIS C SCREENING] Future Scheduled FALL SCREEN [code = [employer] Test FALL SCREEN] of Medicine Future Scheduled OSTEOPOROSIS [facility] [employer] [employer] Test SCREENING [code = of Medicin e OSTEOPOROSIS SCREENING] Future Scheduled PNEUMOVAX >=65 [facility] Co [employer]lege Test (PPSV23) [code = of Medicine PNEUMOVAX >=65 (PPSV23)] Future Scheduled PREVNAR >= 65 [facility] Col lege Test (PCV13) [code = of Medicine PREVNAR >= 65 (PCV13)] Future Scheduled MEDICARE AWV Dash [facility] [employer] Test (Initial) [code = of Medicin e MEDICARE AWV (Initial)] Future Scheduled FLU VACCINE > 6 [facility] C [facility]lege Test MONTHS [code = FLU of Medici ne VACCINE > 6 MONTHS] Future Scheduled COLON CANCER [facility] [employer] Test SCREENING: of Medicine COLONOSCOPY [code = COLON CANCER SCREENING: COLONOSCOPY] Future Scheduled MAMMOGRAM ANNUAL [facility] College Test [code = MAMMOGRAM of Medicin e ANNUAL] Future Scheduled TETANUS SHOT (ADULT) [facility] College Test [code = TETANUS SHOT of Medi cine (ADULT)] Future Scheduled Diabetic foot [facility] Col [employer]ge Test examination of Medicine (regime/therapy) [code = 272784267] Future Scheduled ANNUAL DIABETIC [facility] C [employer]lege Test RETINOPATHY of Medicine SCREENING [code = ANNUAL DIABETIC RETINOPATHY SCREENING] Future Scheduled HEPATITIS C [facility] [employer] Test SCREENING [code = of Medicin e HEPATITIS C SCREENING] Future Scheduled FALL SCREEN [code = [employer] Test FALL SCREEN] of Medicine Future Scheduled OSTEOPOROSIS [facility] [employer] Test SCREENING [code = of Medicin e OSTEOPOROSIS SCREENING] Future Scheduled PNEUMOVAX >=65 [facility] [employer]lege Test (PPSV23) [code = of Medicine PNEUMOVAX >=65 (PPSV23)] Future Scheduled PREVNAR >= 65 [facility] Col lege Test (PCV13) [code = of Medicine PREVNAR >= 65 (PCV13)] Future Scheduled MEDICARE AWV Dash [employer] Test (Initial) [code = of Medicin e MEDICARE AWV (Initial)] Future Scheduled FLU VACCINE > 6 [facility] C [employer]lege Test MONTHS [code = FLU of Medici ne VACCINE > 6 MONTHS] Future Scheduled BMI FOLLOW UP PLAN [employer] Test [code = BMI FOLLOW of Medici ne UP PLAN] Future Scheduled COLON CANCER Dash [employer] Test SCREENING: of Medicine COLONOSCOPY [code = COLON CANCER SCREENING: COLONOSCOPY] Future Scheduled MAMMOGRAM ANNUAL [facility] Test [code = MAMMOGRAM of Medicin e ANNUAL] Future Scheduled TETANUS SHOT (ADULT) [facility] College Test [code = TETANUS SHOT of Medi cine (ADULT)] Future Scheduled Diabetic foot [facility] [employer] Test examination of Medicine (regime/therapy) [code = 090269809] Future Scheduled ANNUAL DIABETIC [facility] C [employer]lege Test RETINOPATHY of Medicine SCREENING [code = ANNUAL DIABETIC RETINOPATHY SCREENING] Future Scheduled HEPATITIS C Dash [employer] Test SCREENING [code = of Medicin e HEPATITIS C SCREENING] Future Scheduled FALL SCREEN [code = [employer] Test FALL SCREEN] of Medicine Future Scheduled OSTEOPOROSIS Dash [employer] Test SCREENING [code = of Medicin e OSTEOPOROSIS SCREENING] Future Scheduled MEDICARE AWV [facility] [employer] Test (Initial) [code = of Medicin e MEDICARE AWV (Initial)] Future Scheduled FLU VACCINE > 6 [facility] C [employer]lege Test MONTHS [code = FLU of Medici ne VACCINE > 6 MONTHS] Future Scheduled BMI FOLLOW UP PLAN [employer] Test [code = BMI FOLLOW of Medici ne UP PLAN] Future Scheduled COLON CANCER Dash [employer] Test SCREENING: of Medicine COLONOSCOPY [code = COLON CANCER SCREENING: COLONOSCOPY] Future Scheduled MAMMOGRAM ANNUAL [facility] College Test [code = MAMMOGRAM of Medicin e ANNUAL] Future Scheduled TETANUS SHOT (ADULT) [employer] [facility] Test [code = TETANUS SHOT of Medi cine (ADULT)] Future Scheduled Diabetic foot [facility] [employer] Test examination of Medicine (regime/therapy) [code = 033598985] Future Scheduled ANNUAL DIABETIC [facility] C [employer]lege Test RETINOPATHY of Medicine SCREENING [code = ANNUAL DIABETIC RETINOPATHY SCREENING] Future Scheduled HEPATITIS C [facility] [employer] Test SCREENING [code = of Medicin e HEPATITIS C SCREENING] Future Scheduled ZOSTER VACCINE (1 of [employer] [facility] Test 2) [code = ZOSTER of Medicin e VACCINE (1 of 2)] Future Scheduled FALL SCREEN [code = [employer] Test FALL SCREEN] of Medicine Future Scheduled OSTEOPOROSIS Dash [employer] Test SCREENING [code = of Medicin e OSTEOPOROSIS SCREENING] Future Scheduled MEDICARE AWV [facility] [employer] Test (Initial) [code = of Medicin e MEDICARE AWV (Initial)] Future Scheduled FLU VACCINE > 6 [facility] C [facility]lege Test MONTHS [code = FLU of Medici ne VACCINE > 6 MONTHS] Future Scheduled BMI FOLLOW UP PLAN [employer] Test [code = BMI FOLLOW of Medici ne UP PLAN] Future Scheduled COLON CANCER [facility] [employer] Test SCREENING: of Medicine COLONOSCOPY [code = COLON CANCER SCREENING: COLONOSCOPY] Future Scheduled MAMMOGRAM ANNUAL [facility] College Test [code = MAMMOGRAM of Medicin e ANNUAL] Future Scheduled TETANUS SHOT (ADULT) [employer] Test [code = TETANUS SHOT of Medi cine (ADULT)] Future Scheduled Diabetic foot [facility] Col [employer]ge Test examination of Medicine (regime/therapy) [code = 734830190] Future Scheduled ANNUAL DIABETIC [facility] C [employer]lege Test RETINOPATHY of Medicine SCREENING [code = ANNUAL DIABETIC RETINOPATHY SCREENING] Future Scheduled HEPATITIS C Dash [employer] Test SCREENING [code = of Medicin e HEPATITIS C SCREENING] Future Scheduled ZOSTER VACCINE (1 of [employer] Test 2) [code = ZOSTER of Medicin e VACCINE (1 of 2)] Future Scheduled FALL SCREEN [code = [employer] Test FALL SCREEN] of Medicine Future Scheduled OSTEOPOROSIS [facility] [employer] Test SCREENING [code = of Medicin e OSTEOPOROSIS SCREENING] Future Scheduled MEDICARE AWV Dash [employer] Test (Initial) [code = of Medicin e MEDICARE AWV (Initial)] Future Scheduled FLU VACCINE > 6 [facility] C [employer]lege Test MONTHS [code = FLU of Medici ne VACCINE > 6 MONTHS] Future Scheduled BMI FOLLOW UP PLAN [employer] Test [code = BMI FOLLOW of Medici ne UP PLAN] Future Scheduled COLON CANCER [facility] [employer] Test SCREENING: of Medicine COLONOSCOPY [code = COLON CANCER SCREENING: COLONOSCOPY] Future Scheduled MAMMOGRAM ANNUAL [facility] College Test [code = MAMMOGRAM of Medicin e ANNUAL] Future Scheduled MEDICARE AWV [code = [employer] [facility] [employer] Test MEDICARE AWV] of Medicine Future Scheduled TETANUS SHOT (ADULT) [employer] Test [code = TETANUS SHOT of Medi cine (ADULT)] Future Scheduled BMI FOLLOW UP PLAN [employer] Test [code = BMI FOLLOW of Medici ne UP PLAN] Future Scheduled HEPATITIS C Dash [employer] Test SCREENING [code = of Medicin e HEPATITIS C SCREENING] Future Scheduled FALL SCREEN [code = [employer] Test FALL SCREEN] of Medicine Future Scheduled OSTEOPOROSIS [facility] [employer] Test SCREENING [code = of Medicin e OSTEOPOROSIS SCREENING] Future Scheduled PNEUMOVAX >=65 [facility] Co [employer]lege Test (PPSV23) [code = of Medicine PNEUMOVAX >=65 (PPSV23)] Future Scheduled PREVNAR >= 65 [facility] Col [employer]ge Test (PCV13) [code = of Medicine PREVNAR >= 65 (PCV13)] Future Scheduled FLU VACCINE > 6 [facility] C [employer]lege Test MONTHS [code = FLU of Medici ne VACCINE > 6 MONTHS] Future Scheduled COLON CANCER [facility] [employer] Test SCREENING: of Medicine COLONOSCOPY [code = COLON CANCER SCREENING: COLONOSCOPY] Future Scheduled MAMMOGRAM ANNUAL [facility] College Test [code = MAMMOGRAM of Medicin e ANNUAL] Future Scheduled TETANUS SHOT (ADULT) [employer] [facility] Test [code = TETANUS SHOT of Medi cine (ADULT)] Future Scheduled Diabetic foot [facility] [employer] Test examination of Medicine (regime/therapy) [code = 317711619] Future Scheduled ANNUAL DIABETIC [facility] C [employer]lege Test RETINOPATHY of Medicine SCREENING [code = ANNUAL DIABETIC RETINOPATHY SCREENING] Future Scheduled BMI FOLLOW UP PLAN [employer] Test [code = BMI FOLLOW of Medici ne UP PLAN] Future Scheduled HEPATITIS C Dash [employer] Test SCREENING [code = of Medicin e HEPATITIS C SCREENING] Future Scheduled FALL SCREEN [code = [employer] Test FALL SCREEN] of Medicine Future Scheduled OSTEOPOROSIS Dash [employer] Test SCREENING [code = of Medicin e OSTEOPOROSIS SCREENING] Future Scheduled PNEUMOVAX >=65 [facility] Co llege Test (PPSV23) [code = of Medicine PNEUMOVAX >=65 (PPSV23)] Future Scheduled PREVNAR >= 65 [facility] Col lege Test (PCV13) [code = of Medicine PREVNAR >= 65 (PCV13)] Future Scheduled MEDICARE AWV [facility] [employer] Test (Initial) [code = of Medicin e MEDICARE AWV (Initial)] Future Scheduled FLU VACCINE > 6 [facility] C ollege Test MONTHS [code = FLU of Medici ne VACCINE > 6 MONTHS] Future Scheduled COLON CANCER [facility] [employer] Test SCREENING: of Medicine COLONOSCOPY [code = COLON CANCER SCREENING: COLONOSCOPY] Future Scheduled MAMMOGRAM ANNUAL [facility] Test [code = MAMMOGRAM of Medicin e ANNUAL] Future Scheduled TETANUS SHOT (ADULT) [facility] College Test [code = TETANUS SHOT of Medi cine (ADULT)] Future Scheduled Diabetic foot [facility] Col lege Test examination of Medicine (regime/therapy) [code = 549907524] Future Scheduled ANNUAL DIABETIC [facility] C [employer]lege Test RETINOPATHY of Medicine SCREENING [code = ANNUAL DIABETIC RETINOPATHY SCREENING] Future Scheduled US ARTERIAL LEG LEFT 1 Occurrences [employer] Test [code = 02692] starting of Medicine 02/03/2020 until 09/02/2020 Future Scheduled US ARTERIAL LEG LEFT 1 Occurrences [employer] Test [code = 42446] starting of Medicine 11/25/2019 until 06/24/2020 Future Scheduled US ARTERIAL LEG LEFT 1 Occurrences [employer] Test [code = 20592] starting of Medicine 05/27/2019 until 12/27/2019 Encounters Start End Encounter Admission Attending Care Care Encounter Source Date/Time Date/Time Type Type Clinicians Facility Department ID 2020-11-25 Outpatient MIO DOAN Surgery [id number] [facility] 17:23:10 IAN 2021-03-01 2021-03-01 Outpatient [facility] [id number] [facility] 12:23:45 15:02:33 Colleg e of Medicin e 2021-03-01 2021-03-01 Office KWAME Doan 1.2.840.114 [id number] [facility] 14:15:00 15:02:27 Visit Ian AMBULATOR 350.1.13.21 College Y 0.2.7.2.686 of [id number] [facility] 825 e 2020-02-03 2020-02-03 Office KWAME Doan 1.2.840.114 [id number] 14:42:26 17:03:39 Visit Jayer AMBULATOR 350.1.13.21 Y 0.2.7.2.686 [id number] 2020-02-03 2020-02-03 Office KWAME Doan 1.2.840.[id number] [place] [address] 14:42:26 17:03:39 Visit Jayer AMBULATOR 350.1.13.21 College Y 0.2.7.2.686 of [id number] [facility] 825 e 2020-01-15 2020-01-15 Outpatient [facility] [id number] [facility] 00:00:00 00:00:00 2019-11-25 2019-11-25 Office KWAME Doan 1.2.840.114 [id number] 09:56:31 16:38:39 Visit Jayer AMBULATOR 350.1.13.21 Y 0.2.7.2.686 [id number] [facility] 2019-11-25 2019-11-25 Office KWAME Doan 1.2.840.[id number] [place] [address] 09:56:31 16:38:39 Visit Jayer AMBULATOR 350.1.13.21 College Y 0.2.7.2.686 of [id number] [facility] 825 e 2019-08-26 2019-08-26 Office KWAME Doan 1.2.840.114 [id number] 09:32:20 11:46:44 Visit Jayer AMBULATOR 350.1.13.21 Y 0.2.7.2.686 [id number] [facility] 2019-08-26 2019-08-26 Office KWAME Doan 1.2.840.[id number] [place] [address] 09:32:20 11:46:44 Visit Jayer AMBULATOR 350.1.13.21 College Y 0.2.7.2.686 of [id number] [facility] 825 e 2019-05-27 2019-05-27 Office KWAME Doan 1.2.840.114 [id number] 09:13:18 12:39:17 Visit Jayer AMBULATOR 350.1.13.21 Y 0.2.7.2.686 [id number] 2019-05-27 2019-05-27 Office KWAME Doan 1.2.840.114 [id number] [facility] 09:13:18 12:39:17 Visit Jayer AMBULATOR 350.1.13.21 College Y 0.2.7.2.686 of [id number] [facility] 825 e 2019-03-18 2019-03-18 Office KWAME Doan 1.2.840.114 [id number] 08:40:49 09:39:44 Visit Jayer AMBULATOR 350.1.13.21 Y 0.2.7.2.686 [id number] 825 2019-03-18 2019-03-18 Office KWAME Doan 1.2.840.[id number] [place] [address] 08:40:49 09:39:44 Visit Jayer AMBULATOR 350.1.13.21 College Y 0.2.7.2.686 of [id number] [facility] 825 e 2019-03-04 2019-03-04 Office DoanKWAME 1.2.840.114 [id number] 09:20:10 11:54:55 Visit Jayer AMBULATOR 350.1.13.21 Y 0.2.7.2.686 [id number] 2019-03-04 2019-03-04 Office DoanKWAME 1.2.840.[id number] [place] [address] 09:20:10 11:54:55 Visit Jayer AMBULATOR 350.1.13.21 College Y 0.2.7.2.686 of [id number] [facility] 820 e 2018-11-17 2018-11-17 Office Michael Mancia 1.2.840.114 [id number] 15:58:42 16:43:42 Visit AMBULATOR 350.1.13.21 Y 0.2.7.2.686 [id number] 2018-11-17 2018-11-17 Office Michael Mancia 1.2.840.[id number] [place] [address] 15:58:42 16:43:42 Visit AMBULATOR 350.1.13.21 College Y 0.2.7.2.686 [id number] [facility] 300 e Results Test Description Test Time Test Comments Results Result Comments Source POCT-GLUCOSE METER 2020-01-18 09:24:00 Test Item Value Reference Range Interpretation Comme nts POC-GLUCOSE METER (BEAKER) 145 mg/dL 70-110 H : TESTED AT [facility] [address] (test code = 1538) BRIAN Paul [address]: Office Machine Service Supervisor/Techni charo ID = [id number] for MARILU MIRANDA SARS-COV2/RT-PCR ([facility])2020-01-15 14:45:00 Test Item Value Reference Range Interpretation Comments SARS-COV2/RT-PCR (test Negative Not Detected, Negative, code = 8179440) See external report for linked test SARS-COV-2 PERFORMING LAB [facility] ROSALBA (test code = 2505244) Negative result for this test determines that [...] 564(g) of the Act.Fact Sheet for Healthcare Providers:https://www.[employer]/sites/default/files/product/documents/Fact_Shee t_US_Ekdrokdqv_Pvqk_RJUO-YbR-7.pdfFact Sheet for Healthcare Patients:https://www.[employer]/sites/default/files/product/ documents/Xzpd_Lgfsb_Jmcigvts_Sicx_ZMRK-ViQ-2.pdfPerforming Laboratory:[facility], [place] [id number] METER 2019-01-16 11:39:00 Test Item Value Reference Range Interpretation Comments POC-GLUCOSE METER 100 mg/dL 70-110 : TESTED A T [facility] [address] (BEAKER) (test code = [facility], 1538) 34174: Office Machine Service Supervisor/Techni charo ID = [id number] for MADDIE GR BOZENA CBC W/PLT COUNT & AUTO [id number] 10:30:00 Test Item Value Reference Range Interpretation [...] 486) HYPERSEGMENTATION Present (CELLAVISION)(BEAKER) (test code = 3705) HYPOCHROMIA (BEAKER) (test code = 1+ few 963) ANISOCYTOSIS (BEAKER) (test code = 1+ few 961) MACROCYTES (BEAKER) (test code = 1+ few 964) ARTIFACT (CELLAVISION)(BEAKER) Present (test code = 3432) PLATELET CONCENTRATION Adequate (CELLAVISION)(BEAKER) (test code = 3438) Received comment: User comments: Slide comments:POCT-GLUCOSE [id number] 08:27:00 Test Item Value Reference Range Interpretation Comments POC-GLUCOSE METER 90 mg/dL 70-110 : TESTED A T [facility] 6720 (BEAKER) (test code = [facility] [employer] [place], 1538) 96[address]: Office Machine Service Supervisor/Techni charo ID = [id number] for BOZENA GOLDBERG BASIC METABOLIC [id number] 05:15:00 Test Item Value Reference Range Interpretation [...] NOT APPLICABLE FOR DIALYSIS PATIEN TS. POCT-GLUCOSE [id number] 20:27:00 Test Item Value Reference Range Interpretation Comments POC-GLUCOSE METER 119 mg/dL 70-110 H : TESTED A T [facility] 6720 (BEAKER) (test code = [facility] [employer] [place], 1538) 55631: Office Machine Service Supervisor/Techni charo ID = [id number] for Jeffery Boone POCT-GLUCOSE [id number] 17:11:00 Test Item Value Reference Range Interpretation Comments POC-GLUCOSE METER 122 mg/dL 70-110 H : TESTED A T [facility] 6720 (BEAKER) (test code = [facility], 1538) 86413: Office Machine Service Supervisor/Techni charo ID = [id number] for Ec at, Cecella POCT-GLUCOSE [id number] 13:01:00 Test Item Value Reference Range Interpretation Comments POC-GLUCOSE METER 113 mg/dL 70-110 H : TESTED A T [facility] 6720 (BEAKER) (test code = [facility], [facility]) 32600: Office Machine Service Supervisor/Techni charo ID = [id number] for ANA PALACIO POCT-GLUCOSE [id number] 08:45:00 Test Item Value Reference Range Interpretation Comments POC-GLUCOSE METER 98 mg/dL 70-110 : TESTED A T [facility] 6720 (BEAKER) (test code = [facility], 153) 05557: Office Machine Service Supervisor/Techni charo ID = [id number] for ANA GAGNON POCT-GLUCOSE [id number] 21:07:00 Test Item Value Reference Range Interpretation Comments POC-GLUCOSE METER 84 mg/dL 70-110 : TESTED A T [facility] 6720 (BEAKER) (test code = [facility], [facility]) 54446: Office Machine Service Supervisor/Techni charo ID = [id number] for Cassius Pk POCT-GLUCOSE [id number] 16:47:00 Test Item Value Reference Range Interpretation Comments POC-GLUCOSE METER 108 mg/dL 70-110 : TESTED A T [facility] 6720 (BEAKER) (test code = [facility], [facility]) 35638: Office Machine Service Supervisor/Techni charo ID = [id number], [place] POCT-GLUCOSE [id number] 15:12:00 Test Item Value Reference Range Interpretation Comments POC-GLUCOSE METER 118 mg/dL 70-110 H : TESTED A T [facility] 6720 (BEAKER) (test code = [facility], 153) 53268: Office Machine Service Supervisor/Techni charo ID = [id number] for DA RAJ FONTENOTENZO POCT-GLUCOSE [id number] 15:04:00 Test Item Value Reference Range Interpretation Comments POC-GLUCOSE METER 127 mg/dL 70-110 H : TESTED A T [facility] 6720 (BEAKER) (test code = [facility], 1538) 31608: Office Machine Service Supervisor/Techni charo ID = [id number] for LAXMI MORTONER, HIWITHA POCT-GLUCOSE [id number] 14:34:00 Test Item Value Reference Range Interpretation Comments POC-GLUCOSE METER 89 mg/dL 70-110 : TESTED A T [facility] 6720 (BEAKER) (test code = [facility], 1538) 84872: Office Machine Service Supervisor/Techni charo ID = [id number] for BATEMAN ER, HIWITHA POCT-GLUCOSE [id number] 13:53:00 Test Item Value Reference Range Interpretation Comments POC-GLUCOSE METER 137 mg/dL 70-110 H : TESTED A T [facility] 6720 (BEAKER) (test code = [facility], 153) 31638: Office Machine Service Supervisor/Techni charo ID = [id number], [place] POCT-GLUCOSE [id number] 12:44:00 Test Item Value Reference Range Interpretation Comments POC-GLUCOSE METER 125 mg/dL 70-110 H : TESTED A T [facility] 6720 (BEAKER) (test code = [facility], 153) 45058: Office Machine Service Supervisor/Techni charo ID = [id number] for OC CRUZ POCT-GLUCOSE [id number] 08:33:00 Test Item Value Reference Range Interpretation Comments POC-GLUCOSE METER 112 mg/dL 70-110 H : TESTED A T [facility] 6720 (BEAKER) (test code = [facility], 153) 63617: Office Machine Service Supervisor/Techni charo ID = [id number] for ANA PALACIO POCT-GLUCOSE [id number] 07:56:00 Test Item Value Reference Range Interpretation Comments POC-GLUCOSE METER 96 mg/dL 70-110 : TESTED A T [facility] 6720 (BEAKER) (test code = [facility], 153) 57703: Office Machine Service Supervisor/Techni charo ID = [id number] for Compa ortiz Danica BASIC METABOLIC [id number] 07:07:00 Test Item Value Reference Range Interpretation [...] PATIEN TS. CBC W/PLT COUNT & AUTO [id number] 06:52:00 Test Item Value Reference Range Interpretation [...] PERCENT (BEAKER) (test code = 2801) POCT-GLUCOSE [id number] 21:36:00 Test Item Value Reference Range Interpretation Comments POC-GLUCOSE METER 143 mg/dL 70-110 H : TESTED A T [facility] 6720 (BEAKER) (test code = [facility], 1538) 27214: Office Machine Service Supervisor/Techni charo ID = [id number] for DA VIS, RODGER POCT-GLUCOSE [id number] 19:20:00 Test Item Value Reference Range Interpretation Comments POC-GLUCOSE METER 117 mg/dL 70-110 H : TESTED A T [facility] 6720 (BEAKER) (test code = [facility], 1538) 78760: Office Machine Service Supervisor/Techni charo ID = [id number] for DA VIS, RODGER POCT-GLUCOSE [id number] 09:30:00 Test Item Value Reference Range Interpretation Comments POC-GLUCOSE METER 100 mg/dL 70-110 : TESTED A T [facility] 6720 (BEAKER) (test code = [facility], 1538) 67647: Office Machine Service Supervisor/Techni charo ID = [id number] for ANA PALACIO BASIC METABOLIC [id number] 05:18:00 Test Item Value Reference Range Interpretation [...] PATIEN TS. CBC W/PLT COUNT & AUTO [id number] 04:37:00 Test Item Value Reference Range Interpretation [...] PERCENT (BEAKER) (test code = 2801) POCT-GLUCOSE [id number] 20:59:00 Test Item Value Reference Range Interpretation Comments POC-GLUCOSE METER 95 mg/dL 70-110 : TESTED A T [facility] 6720 (BEAKER) (test code = [facility], 153) 62443: Office Machine Service Supervisor/Techni charo ID = [id number] for RODGER SPARKS POCT-GLUCOSE [id number] 17:08:00 Test Item Value Reference Range Interpretation Comments POC-GLUCOSE METER 90 mg/dL 70-110 : TESTED A T [facility] 6720 (BEAKER) (test code = [facility], 1538) 48332: Office Machine Service Supervisor/Techni charo ID = [id number] for BELLE CHAPA POCT-GLUCOSE [id number] 12:10:00 Test Item Value Reference Range Interpretation Comments POC-GLUCOSE METER 118 mg/dL 70-110 H : TESTED A T [facility] 6720 (BEAKER) (test code = [facility], 1538) 52839: Office Machine Service Supervisor/Techni charo ID = [id number] for BELLE GRIFFITHS U/S, RENAL, [id number] 10:37:00Reason for exam:->ckdFINAL REPORT TECHNIQUE: Grayscale ultrasound [...] MDReport Verified Date/Time: 01/11/2019 10:37:05 Reading Location: [address] Body Reading Room POCT-GLUCOSE [id number] 09:22:00 Test Item Value Reference Range Interpretation Comments POC-GLUCOSE METER 75 mg/dL 70-110 : TESTED A T [facility] 6720 (BEAKER) (test code = [facility] [place], 1538) 79304: Office Machine Service Supervisor/Techni charo ID = [id number] for CICI DRISCOLL [id number] 04:57:00 Test Item Value Reference Range Interpretation Comments PHOSPHORUS (BEAKER) (test code = 2.8 mg/dL 2.3-4.7 604) [id number] 04:57:00 Test Item Value Reference Range Interpretation Comments MAGNESIUM (BEAKER) (test code = 1.9 mg/dL 1.6-2.6 627) BASIC METABOLIC [id number] 04:57:00 Test Item Value Reference Range Interpretation [...] PATIEN TS. CBC W/PLT COUNT & AUTO [id number] 04:32:00 Test Item Value Reference Range Interpretation [...] PERCENT (BEAKER) (test code = 2801) POCT-GLUCOSE [id number] 22:26:00 Test Item Value Reference Range Interpretation Comments POC-GLUCOSE METER 95 mg/dL 70-110 : TESTED A T [facility] 6720 (BEAKER) (test code = [facility], 1538) 05237: Office Machine Service Supervisor/Techni charo ID = [id number] for Beena Reed POCT-GLUCOSE [id number] 17:04:00 Test Item Value Reference Range Interpretation Comments POC-GLUCOSE METER 98 mg/dL 70-110 : TESTED A T [facility] 6720 (BEAKER) (test code = [facility], 1538) 07529: Office Machine Service Supervisor/Techni charo ID = [id number] for BELLE CHAPA PTH, [id number] 16:02:00 Test Item Value Reference Range Interpretation Comments PARATHYROID HORMONE INTACT 200.6 pg/mL 8.5-72.5 H (BEAKER) (test code = 577) CBC W/PLT COUNT & AUTO [id number] 15:09:00 Test Item Value Reference Range Interpretation [...] PERCENT (BEAKER) (test code = 2801) POCT-GLUCOSE [id number] 11:53:00 Test Item Value Reference Range Interpretation Comments POC-GLUCOSE METER 132 mg/dL 70-110 H : TESTED A T [facility] 6720 (BEAKER) (test code = [facility] [place], 1538) 06258: Office Machine Service Supervisor/Techni charo ID = [id number] for Cici Isaacs POCT-GLUCOSE [id number] 09:42:00 Test Item Value Reference Range Interpretation Comments POC-GLUCOSE METER 112 mg/dL 70-110 H : TESTED A T [facility] 6720 (BEAKER) (test code = [facility] [place], 1538) 38353: Office Machine Service Supervisor/Techni charo ID = [id number] for Cici Isaacs URIC [id number] 09:14:00 Test Item Value Reference Range Interpretation Comments URIC ACID (BEAKER) (test code = 7.3 mg/dL 2.6-7.2 H 773) [id number] 06:14:00 Test Item Value Reference Range Interpretation Comments PHOSPHORUS (BEAKER) (test code = 2.8 mg/dL 2.3-4.7 604) [id number] 06:14:00 Test Item Value Reference Range Interpretation Comments MAGNESIUM (BEAKER) (test code = 1.9 mg/dL 1.6-2.6 627) BASIC METABOLIC [id number] 06:14:00 Test Item Value Reference Range Interpretation [...] NOT APPLICABLE FOR DIALYSIS PATIEN TS. POCT-GLUCOSE [id number] 21:33:00 Test Item Value Reference Range Interpretation Comments POC-GLUCOSE METER 113 mg/dL 70-110 H : TESTED A T [facility] 6720 (BEAKER) (test code = [facility], 1538) 96200: Office Machine Service Supervisor/Techni charo ID = [id number] for RODGER JONES POCT-GLUCOSE [id number] 17:16:00 Test Item Value Reference Range Interpretation Comments POC-GLUCOSE METER 113 mg/dL 70-110 H : TESTED A T [facility] 6720 (BEAKER) (test code = [facility], 1538) 10324: Office Machine Service Supervisor/Techni charo ID = [id number] for RIDDHI AGUILAR POCT-GLUCOSE [id number] 12:17:00 Test Item Value Reference Range Interpretation Comments POC-GLUCOSE METER 166 mg/dL 70-110 H : TESTED A T [facility] 6720 (BEAKER) (test code = [facility], 1538) 90246: Office Machine Service Supervisor/Techni charo ID = [id number] for CHINTAN MCCLELLAND POCT-GLUCOSE [id number] 07:51:00 Test Item Value Reference Range Interpretation Comments POC-GLUCOSE METER 143 mg/dL 70-110 H : TESTED A T [facility] 6720 (BEAKER) (test code = [facility], 1538) 15279: Office Machine Service Supervisor/Techni charo ID = [id number] for Pe meaghan, Neena [id number] 06:28:00 Test Item Value Reference Range Interpretation Comments MAGNESIUM (BEAKER) 1.8 mg/dL 1.6-2.6 Specimen slightly (test code = 627) hemolyzed [id number] 06:28:00 Test Item Value Reference Range Interpretation Comments PHOSPHORUS (BEAKER) 2.5 mg/dL 2.3-4.7 Specimen slightly (test code = 604) hemolyzed BASIC METABOLIC [id number] 06:28:00 Test Item Value Reference Range Interpretation [...] PATIEN TS. CBC W/PLT COUNT & AUTO [id number] 04:20:00 Test Item Value Reference Range Interpretation [...] 0-1 PERCENT (BEAKER) (test code = 2801) [id number] 17:40:00 Test Item Value Reference Range Interpretation Comments PHOSPHORUS (BEAKER) (test code = 3.3 mg/dL 2.3-4.7 604) [id number] 17:40:00 Test Item Value Reference Range Interpretation Comments MAGNESIUM (BEAKER) (test code = 1.8 mg/dL 1.6-2.6 627) BASIC METABOLIC [id number] 17:40:00 Test Item Value Reference Range Interpretation [...] S NOT APPLICABLE FOR DIALYSIS PATIEN TS. [id number] 17:03:00 Test Item Value Reference Range Interpretation [...] mechanical heart valves.CBC W/PLT COUNT & AUTO [id number] 16:56:00 Test Item Value Reference Range Interpretation [...] PERCENT (BEAKER) (test code = 2801) POCT-GLUCOSE [id number] 16:55:00 Test Item Value Reference Range Interpretation Comments POC-GLUCOSE METER 200 mg/dL 70-110 H : TESTED A T [place] [address] (BEAKER) (test code = [facility], 1538) 29519: Office Machine Service Supervisor/Techni charo ID = [id number] for JOSE DENNEY [id number] 13:51:00 Test Item Value Reference Range Interpretation Comments ACTIVATED CLOTTING TIME 274 sec Refe rence Range: (BEAKER) (test code = 74-137 seconds, 441) Baseline/TESTED AT [address] [address] [id number] 13:51:00 Test Item Value Reference Range Interpretation Comments ACTIVATED CLOTTING TIME 323 sec Refe rence Range: (BEAKER) (test code = 74-137 seconds, 441) Baseline/TESTED AT [address] 7703 0 CBC W/PLT COUNT & AUTO [id number] 07:44:00 Test Item Value Reference Range Interpretation [...] PERCENT (BEAKER) (test code = 2801) POCT-GLUCOSE [id number] 06:13:00 Test Item Value Reference Range Interpretation Comments POC-GLUCOSE METER 123 mg/dL 70-110 H : TESTED A T [facility] 6720 (BEAKER) (test code [place], = 1538) 98402: Office Machine Service Supervisor/Techni charo ID = [id number] for JORD AN, LACRYSTAL PLATELET [id number] 11:27:00 Test Item Value Reference Range Interpretation Comments PLATELET COUNT (BEAKER) (test 112 K/CU MM 150-450 L code = 756) [id number] 11:07:00 Test Item Value Reference Range Interpretation Comments SODIUM (BEAKER) (test code = 381) 138 meq/L 136-145 POTASSIUM (BEAKER) (test code = 4.7 meq/L 3.5-5.1 379) CHLORIDE (BEAKER) (test code = 382) 107 meq/L 98-107 CO2 (BEAKER) (test code = 355) 26 meq/L 22-29 [id number] 11:07:00 Test Item Value Reference Range Interpretation Comments GLUCOSE RANDOM (BEAKER) (test code 134 mg/dL 70-105 H = 652) BUN AND [id number] 11:07:00 Test Item Value Reference Range Interpretation [...] S NOT APPLICABLE FOR DIALYSIS PATIEN TS. [id number] 10:54:00 Test Item Value Reference Range Interpretation Comments HEMOGLOBIN (BEAKER) (test code = 13.1 GM/DL 11.2-15.7 410) PET, CARDIAC PERFUSION MULTIPLE STUDIES, REST AND [id number] 16:17:00 Reason for Exam:->i73.9, e11.9, i25.10FINAL REPORT PROCEDURE: MYOCARDIAL PERFUSION PET IMAGING (Rest/Stress)CPT CODE: 45612 INDICATION: Known CAD CARDIOVASCULAR PROFILE:CAD History: Known [...] MDReport Verified Date/Time: 11/26/2018 16:17:24 Reading Location: [address] Reading Room ELECTROCARDIOGRAM [id number] 22:58:11Result approved by Michael Mancia MD on 11/17/18[facility] [id number] 11:28:00 Test Item Value Reference Range Interpretation [...] PATIEN TS. CBC W/PLT COUNT & AUTO [id number] 11:19:00 Test Item Value Reference Range Interpretation [...] (BEAKER) (test code = 2801) BASIC METABOLIC [id number] 14:13:00 Test Item Value Reference Range Interpretation [...] PATIEN TS. CBC W/PLT COUNT & AUTO [id number] 13:54:00 Test Item Value Reference Range Interpretation [...]
--- NOTE | 2021-05-20 20:07 | RAD REPORT ---
EXAM DESCRIPTION: CT - CTHCSPWOC - 05/20/2021 7:52 pm CLINICAL HISTORY: PAIN, trip and fall, trauma to forehead, head and neck injury, headache, neck pain COMPARISON: C Spine Wo Con dated 11/16/2019 TECHNIQUE: Axial 5 mm thick images of the head were obtained. Axial 2 mm thick images of the cervic al spine were obtained with sagittal and coronal reconstruction images generated and reviewed. All CT scans are performed using dose optimization technique as appropriate and may include automated exposure control or mA/KV adjustment according to patient size. FINDINGS: No intracranial hemorrhage, mass, edema or acute intracranial finding. No suspicion for ac dagoberto infarction. Atrophy and chronic ischemic changes are mild. No extra-axial fluid collections. Mast oid air cells and paranasal sinuses are clear. No globe or orbit abnormality seen. Moderate-sized rig ht forehead scalp hematoma present underlying bone is intact. Cervical bodies are normal in height. There is a very slight retrolisthesis of C4 on C5 with C4-5 dis c space narrowed. Posterior disc bulge and endplate spurring are present and there is significant scott tral spinal stenosis done to 6 mm. No other significant disc space narrowing. No fracture or acute christie ny abnormality. Prominent facet joint degenerative changes are present. Right foraminal stenosis pres ent at C3-4 with significant left foraminal stenosis at C4-5 and bilateral C5-6. Central canal detail is inherently limited. No paraspinal mass or hematoma. IMPRESSION: No intracranial hemorrhage present. Moderate right frontal scalp hematoma is present wit h underlying bone intact. Advanced cervical spine degenerative changes are present including significant spinal stenosis at C4- 5. No acute findings seen in the cervical spine findings are not significantly different from 2019.
--- NOTE | 2021-05-20 20:33 | EDPHYS ---
Physician Documentation [facility] Name: Sangita Hendrix Age: 75 yrs Sex: Female : 1945 Arrival Date: 05/20/2021 Time: 19:41 Bed 5 Private MD: ED Physician Tevin Harrell HPI: 05/20 20:00 This 75 yrs old Black Female presents to ER via Wheelchair with complaints of Head pm1 Injury-Adult. 20:00 The patient or guardian reports pain, swelling, tenderness. The complaints affect the pm1 right side of forehead. Context of injury: The problem was sustained at home, resulted from missed a step and fell down 3 steps. 20:00 Onset: The symptoms/episode began/occurred just prior to arrival. Associated signs and pm1 symptoms: Loss of consciousness: This patient did not experience any loss of consciousness. Pertinent positives: headache, Pertinent negatives: neck pain, shortness of breath, vomiting, chest pain. The patient has not experienced similar symptoms in the past. The patient has not recently seen a physician. patient missed a step walking down the stairs and she fell down three steps and hit her head on the steps or the floor. Patient takes plavix. Negative LOC, neck pain. Historical: - Allergies: 19:43 PENICILLINS; ld1 - PMHx: 19:43 BRADYCARDIA; Diabetes - IDDM; Dementia; CHF; Gout; Pacemaker; ld1 - PSHx: 19:43 hysterectomy; ld1 - Immunization history:: Adult Immunizations up to date, Client reports receiving the 2nd dose of the Covid vaccine. - Social history:: Smoking status: Patient denies any tobacco usage or history of. Patient/guardian denies using alcohol. ROS: 20:00 Constitutional: Negative for fever, chills, and weight loss, Neck: Negative for injury, pm1 pain, and swelling, Cardiovascular: Negative for chest pain, palpitations, and edema, Respiratory: Negative for shortness of breath, cough, wheezing, and pleuritic chest pain, Abdomen/GI: Negative for abdominal pain, nausea, vomiting, diarrhea, and constipation, MS/Extremity: Negative for injury and deformity, Skin: Negative for injury, rash, and discoloration. 20:00 Neuro: Positive for headache, Negative for numbness, tingling, weakness. 20:00 All other systems are negative. Exam: 20:00 Constitutional: This is a well developed, well nourished patient who is awake, alert, pm1 and in no acute distress. 20:00 MS/ Extremity: Pulses equal, no cyanosis. Neurovascular intact. Full, normal range of motion. 20:00 Head/face: Noted is no obvious of injury or deformity except abrasion(s), that are mild, of the forehead, contusion, that is superficial, of the forehead. 20:00 Neck: Exam negative for acute changes, External neck: no acute changes, C-spine: appears grossly normal, no vertebral tenderness, no crepitus, ROM/movement: no acute changes. 20:00 Cardiovascular: Exam negative for acute changes, Rate: normal, Rhythm: regular, Pulses: no pulse deficits are appreciated, Heart sounds: normal. 20:00 Respiratory: Exam negative for acute changes, respiratory distress, shortness of breath. 20:00 Abdomen/GI: Exam negative for acute changes, Inspection: abdomen appears normal, Palpation: abdomen is soft and non-tender, in all quadrants. 20:00 Skin: Appearance: normal except for affected area, injury, abrasion(s), very small abrasion noted, of the forehead. 20:00 Neuro: Exam negative for acute changes, Orientation: is normal, Mentation: is normal, Motor: is normal, moves all fours. Vital Signs: 19:41 Weight 106.59 kg; Height 5 ft. 4 in. (162.56 cm); Pain 0/10; ld1 19:49 BP 176 / 60; Pulse 70; Resp 17 S; Pulse Ox 98% on R/A; Pain 5/10; lg3 20:40 BP 151 / 70; Pulse 69; Resp 17; Pulse Ox 100% on R/A; ke1 19:41 Body Mass Index 40.34 (106.59 kg, 162.56 cm) ld1 Vadim Coma Score: 19:41 Eye Response: spontaneous(4). Verbal Response: oriented(5). Motor Response: obeys ld1 commands(6). Total: 15. 20:00 Eye Response: spontaneous(4). Verbal Response: oriented(5). Motor Response: obeys pm1 commands(6). Total: 15. MDM: 19:42 Patient medically screened. pm1 20:31 Data reviewed: vital signs. Data interpreted: Pulse oximetry: on room air is 98 %. pm1 Interpretation: normal. Counseling: I had a detailed discussion with the patient and/or guardian regarding: the historical points, exam findings, and any diagnostic results supporting the discharge/admit diagnosis, radiology results, the need for outpatient follow up, to return to the emergency department if symptoms worsen or persist or if there are any questions or concerns that arise at home. 20:42 ED course: [place]MP[place] reviewed. patient not given her prescription for tramadol because pm1 she already has a 30 day supply with 3 refills from PCP. 05/20 19:42 Order name: CT Head C Spine; Complete Time: 20:13 pm1 05/20 19:51 Order name: EKG - Nurse/Tech; Complete Time: 19:51 lg3 05/20 19:51 Order name: EKG; Complete Time: 19:51 lg3 Administered Medications: 20:47 Drug: HYDROcodone-acetaminophen 5 mg-325 mg 1 tabs Route: PO; lg3 20:48 Follow up: Response: No adverse reaction; RASS: Alert and Calm (0) lg3 Disposition: 05/21 19:04 Co-signature as Attending Physician, Tevin Harrell MD. [email or web address] Disposition Summary: 05/20/21 20:33 Discharge Ordered Location: Home pm1 Problem: new pm1 Symptoms: have improved pm1 Condition: Stable pm1 Diagnosis - Fall (on) (from) other stairs and steps pm1 - Contusion of unspecified part of head - forehead pm1 Followup: pm1 - With: Emergency Department - When: As needed - Reason: Worsening of condition Followup: pm1 - With: Private Physician - When: 2 - 3 days - Reason: Recheck today's complaints, Continuance of care, Re-evaluation by your physician Discharge Instructions: - Discharge Summary Sheet pm1 - Facial or Scalp Contusion pm1 - Fall Prevention in the Home, Adult pm1 Forms: - Medication Reconciliation Form pm1 - Thank You Letter pm1 - Antibiotic Education pm1 - Prescription Opioid Use pm1 Prescriptions: - Tramadol 50 mg Oral Tablet - take 1 tablet by ORAL route every 8 hours as needed; 12 tablet; Refills: 0, pm1 Product Selection Permitted Signatures: Dispatcher [employer] EDMS Darrell Franco NP LITHOSTRIPPER pm1 Bernarda Goncalves, RN RN lg3 Tevin Harrell MD MD [email or web address] Ira Castañeda, RN RN ld1
--- NOTE | 2021-05-20 20:33 | ER ---
Nurse's Notes [facility] Name: Sangita Hendrix Age: 75 yrs Sex: Female : 1945 Arrival Date: 05/20/2021 Time: 19:41 Bed 5 Private MD: Diagnosis: Fall (on) (from) other stairs and steps;Contusion of unspecified part of head-forehead Presentation: 05/20 19:41 Chief complaint: Patient states: I tripped and fell down the stairs at home (3-4 ld1 stairs) - Hit forehead. Pt reports being on blood thinners. Coronavirus screen: At this time, the client does not indicate any symptoms associated with coronavirus-19. Ebola Screen: No symptoms or risks identified at this time. Mechanism of Injury: resulted from a fall, while walking. Initial Sepsis Screen: Does the patient meet any 2 criteria? No. Patient's initial sepsis screen is negative. Does the patient have a suspected source of infection? No. Patient's initial sepsis screen is negative. Risk Assessment: Do you want to hurt yourself or someone else? Patient reports no desire to harm self or others. 19:41 Method Of Arrival: Wheelchair ld1 19:41 Acuity: MADISYN 3 ld1 20:40 Onset of symptoms was May 20, 2021. ke1 Triage Assessment: 19:43 General: Appears in no apparent distress. comfortable, Behavior is calm, cooperative, ld1 appropriate for age. Pain: Denies pain. EENT: No signs and/or symptoms were reported regarding the EENT system. Neuro: Level of Consciousness is awake, alert, obeys commands, Oriented to person, place, time, situation. Neuro: Reports. Respiratory: Airway is patent Respiratory effort is even, unlabored, Respiratory pattern is regular, symmetrical. Historical: - Allergies: 19:43 PENICILLINS; ld1 - PMHx: 19:43 BRADYCARDIA; Diabetes - IDDM; Dementia; CHF; Gout; Pacemaker; ld1 - PSHx: 19:43 hysterectomy; ld1 - Immunization history:: Adult Immunizations up to date, Client reports receiving the 2nd dose of the Covid vaccine. - Social history:: Smoking status: Patient denies any tobacco usage or history of. Patient/guardian denies using alcohol. Screenin:45 Abuse screen: Denies threats or abuse. Denies injuries from another. Nutritional lg3 screening: No deficits noted. Tuberculosis screening: No symptoms or risk factors identified. Fall Risk Fall in past 12 months (25 points). Secondary diagnosis (15 points) dementia, Total Watson Fall Scale indicates Low Risk Score (25-44 pts). Side Rails Up X 2 Frequent Obs/Assesments occuring Family Present and informed to notify staff if they need to leave bedside. Assessment: 19:45 General: Appears in no apparent distress. comfortable, Behavior is calm, cooperative. lg3 Pain: Complains of pain in head. Neuro: No deficits noted. Level of Consciousness is awake, alert, obeys commands, Oriented to person, place, time, situation, Speech is normal. Cardiovascular: No deficits noted. Denies chest pain, shortness of breath, Capillary refill < 3 seconds Clubbing of nail beds is absent JVD is absent Patient's skin is warm and dry. Respiratory: No deficits noted. Airway is patent Trachea midline Respiratory effort is even, unlabored, Respiratory pattern is regular, symmetrical. GI: No deficits noted. No signs and/or symptoms were reported involving the gastrointestinal system. : No deficits noted. No signs and/or symptoms were reported regarding the genitourinary system. EENT: No deficits noted. No signs and/or symptoms were reported regarding the EENT system. Derm: Skin is intact, is healthy with good turgor, Skin is dry, swelling noted to right frontal side of head. Musculoskeletal: No deficits noted. No signs and/or symptoms reported regarding the musculoskeletal system. Circulation, motion, and sensation intact. Capillary refill < 3 seconds, Range of motion: intact in all extremities. Injury Description: fall. 20:48 Reassessment: Patient appears in no apparent distress at this time. No changes from lg3 previously documented assessment. Patient and/or family updated on plan of care and expected duration. Pain level reassessed. Patient is alert, oriented x 3, equal unlabored respirations, skin warm/dry/pink. Patient states feeling better. Patient states symptoms have improved. Vital Signs: 19:41 Weight 106.59 kg; Height 5 ft. 4 in. (162.56 cm); Pain 0/10; ld1 19:49 BP 176 / 60; Pulse 70; Resp 17 S; Pulse Ox 98% on R/A; Pain 5/10; lg3 20:40 BP 151 / 70; Pulse 69; Resp 17; Pulse Ox 100% on R/A; ke1 19:41 Body Mass Index 40.34 (106.59 kg, 162.56 cm) ld1 Ralston Coma Score: 19:41 Eye Response: spontaneous(4). Verbal Response: oriented(5). Motor Response: obeys ld1 commands(6). Total: 15. 20:00 Eye Response: spontaneous(4). Verbal Response: oriented(5). Motor Response: obeys pm1 commands(6). Total: 15. ED Course: 19:41 Patient arrived in ED. jj6 19:42 Darrell Franco NP is PHCP. pm1 19:42 Tevin Harrell MD is Attending Physician. pm1 19:43 Triage completed. ld1 19:43 Arm band placed on right wrist. ld1 19:45 Patient has correct armband on for positive identification. Placed in gown. Bed in low lg3 position. Call light in reach. Side rails up X2. edging machine catcher on. Pulse ox on. NIBP on. Door closed. Noise minimized. Warm blanket given. Family accompanied patient. 19:50 Bernarda Goncalves, RN is Primary Nurse. lg3 19:54 CT Head C Spine In Process Unspecified. EDMS 20:40 No provider procedures requiring assistance completed. ke1 20:49 Patient did not have IV access during this emergency room visit. lg3 Administered Medications: 20:47 Drug: HYDROcodone-acetaminophen 5 mg-325 mg 1 tabs Route: PO; lg3 20:48 Follow up: Response: No adverse reaction; RASS: Alert and Calm (0) lg3 Outcome: 20:33 Discharge ordered by MD. pm1 20:48 Discharged to home via wheelchair, with family. lg3 20:48 Condition: stable 20:48 Discharge instructions given to patient, family, Instructed on discharge instructions, safety practices, Demonstrated understanding of instructions. 20:49 Patient left the ED. lg3 Signatures: Dispatcher [employer] EDMS Darrell Franco NP DOOR PATCHER pm1 Bernarda Goncalves RN RN lg3 Ira Castañeda RN RN ld1 Yanira Lutz jj6 Ebrottie, Kouassi, RN RN ke1
[2021-05-20] MEDS ORDERED: HYDROCODONE/APAP 5/325 MG TAB ONE (20:43)
[2021-05-20 20:55] VITALS: BP 151/70; O2SAT 100
--- NOTE | 2021-05-22 11:17 | EKG ---
Test Date: 2021-05-20 Test Time: 19:45:16 Kiln Fireman: MEASUREMENT RESULTS: Intervals: Rate: 68 CA: 208 QRSD: 114 QT: 478 QTc: 508 Ryder: P: 63 CA: 208 QRS: -37 T: 93 INTERPRETIVE STATEMENTS: Normal sinus rhythm Left axis deviation Septal infarct, age undetermined Prolonged QT Abnormal ECG Compared to ECG 08/29/2020 05:12:27 Left-axis deviation now present First degree AV block no longer present Myocardial infarct finding still present Electronically Signed On 05-22-21 11:12:52 CDT by Khurram Stone
== END 2021-05-20 20:49 | disposition home or self-care (01) ==
LOC: ER 19:33
DX: S00.83XA Contusion of other part of head, initial encounter (principal); W10.8XXA Fall (on) (from) other stairs and steps, initial encounter; E11.9 Type 2 diabetes mellitus without complications; I50.9 Heart failure, unspecified; F03.90 Unspecified dementia, unspecified severity, without behavioral disturbance, psychotic disturbance, mood disturbance, and anxiety; Z79.01 Long term (current) use of anticoagulants; Z88.0 Allergy status to penicillin; Z95.0 Presence of cardiac pacemaker
CPT/HCPCS: 70450; 72125; 93005; 99284

== ENCOUNTER 2021-08-25 14:13 | Observation (INO) | payer OTHER ==
[2021-08-25 15:21] LABS: Protime INR 1.19
[2021-08-25 15:22] LABS: Absolute Lymphocytes (CBC) 0.9 K/uL (0.7-4.9); Hematocrit 42.1 % (36.0-45.0); Lymphocytes % 23.8 % (15.3-44.8); MCV 92.4 fL (80-100); MPV 9.6 fL (7.6-11.3); RBC Red Blood Cell Count 4.56 M/uL (3.86-4.86)
--- NOTE | 2021-08-25 15:38 | RAD REPORT ---
EXAM DESCRIPTION: Mis Single View08/25/2021 3:10 pm CLINICAL HISTORY: Syncope COMPARISON: 2020 FINDINGS: The lungs appear clear of acute infiltrate. The heart is mildly enlarged. Pacemaker leads are in place. IMPRESSION: No acute abnormalities displayed
[2021-08-25 15:53] LABS: Potassium 4.8 mmol/L (3.5-5.1); Troponin High Sensitivity 14.6 pg/mL (<58.9)
--- NOTE | 2021-08-25 16:00 | RAD REPORT ---
EXAM DESCRIPTION: CT - Head Brain Wo Cont - 08/25/2021 3:54 pm CLINICAL HISTORY: Syncope COMPARISON: 2019 TECHNIQUE: Computed axial tomography of the head was obtained. IV contrast was not requested. All CT scans are performed using dose optimization technique as appropriate and may include automated exposure control or mA/KV adjustment according to patient size. FINDINGS: An intracranial bleed is not seen . The ventricles are normal in caliber. No extra-axial fluid collection is noted. No significant hypodensity within the brain Beam hardening artifact limits evaluation of portions of base of the brain. . Fluid within the sinuses/ mastoids is not seen. IMPRESSION: No acute intracranial abnormality is seen.
--- NOTE | 2021-08-25 16:24 | EDPHYS ---
Physician Documentation [facility] Name: Sangita Hendrix Age: 75 yrs Sex: Female : 1945 Arrival Date: 08/25/2021 Time: 14:14 Bed 26 Private MD: Nam Alexander R ED Physician Mat Ayala HPI: 08/25 15:03 This 75 yrs old Black Female presents to ER via Wheelchair with complaints of Syncope, ms3 Passed Out Prior To Arrival. 15:03 The patient has experienced syncope, became unresponsive. Onset: The symptoms/episode ms3 began/occurred acutely, just prior to arrival. Duration: This was a single episode, that lasted 3 minute(s). Context: occurred while the patient was sitting. Associated injury: The patient did not suffer any apparent associated injury. Associated signs and symptoms: Pertinent positives: diaphoresis. Current symptoms: Currently, the patient is not experiencing any symptoms, the patient feels back to baseline. Historical: - Allergies: 14:35 PENICILLINS; jl7 - PMHx: 14:35 BRADYCARDIA; CHF; Dementia; Diabetes - IDDM; Gout; Pacemaker; jl7 - PSHx: 14:35 hysterectomy; jl7 - Immunization history:: Client reports receiving the 2nd dose of the Covid vaccine. - Social history:: Smoking status: Patient denies any tobacco usage or history of. ROS: 15:03 Constitutional: Negative for fever, and chills. ENT: Negative for injury, pain, and ms3 discharge, Neck: Negative for injury, pain, and swelling, Cardiovascular: Negative for chest pain, and palpitations. Respiratory: Negative for shortness of breath, cough, wheezing, and pleuritic chest pain, Abdomen/GI: Negative for abdominal pain, nausea, vomiting, diarrhea, and constipation, MS/Extremity: Negative for injury and deformity, Skin: Negative for injury, rash, and discoloration. 15:03 Neuro: Positive for headache. 15:03 All other systems are negative. Exam: 14:56 ECG was reviewed by the Attending Physician. ms3 15:03 Constitutional: This is a well developed, well nourished patient who is awake, alert, ms3 and in no acute distress. Head/Face: Normocephalic, atraumatic. Neck: Trachea midline, no cervical lymphadenopathy. Supple, full range of motion without nuchal rigidity, or vertebral point tenderness. No Meningismus. Chest/axilla: Normal chest wall appearance and motion. Nontender with no deformity. Cardiovascular: Regular rate and rhythm with a normal S1 and S2. No gallops, murmurs, or rubs. Normal PMI, no JVD. No pulse deficits. Respiratory: Lungs have equal breath sounds bilaterally, clear to auscultation and percussion. No rales, rhonchi or wheezes noted. No increased work of breathing, no retractions or nasal flaring. Abdomen/GI: Soft, non-tender, with normal bowel sounds. No distension or tympany. No guarding or rebound. No evidence of tenderness throughout. Skin: Warm, dry with normal turgor. Normal color with no rashes, no lesions, and no evidence of cellulitis. MS/ Extremity: Pulses equal, no cyanosis. Neurovascular intact. Full, normal range of motion. Neuro: Awake and alert, GCS 15, oriented to person, place, time, and situation. Cranial nerves II-XII grossly intact. Motor strength 5/5 in all extremities. Sensory grossly intact. Cerebellar exam normal. Normal gait. Psych: Awake, alert, with orientation to person, place and time. Behavior, mood, and affect are within normal limits. Vital Signs: 14:33 BP 109 / 52; Pulse 53; Resp 17; Temp 97.9; Pulse Ox 100% ; jl7 15:12 BP 133 / 50; Pulse 52; Resp 18; Pulse Ox 99% on R/A; bh1 16:26 Pulse 54; Resp 18; Pulse Ox 98% on R/A; bh1 17:44 BP 158 / 74; Pulse 60; Resp 18; Pulse Ox 100% on R/A; bh1 18:57 BP 147 / 68; Pulse 61; Resp 18; Pulse Ox 100% on R/A; bh1 20:04 BP 147 / 68; Pulse 60; Resp 18; Pulse Ox 100% on R/A; bh1 21:24 BP 147 / 68; Pulse 61; Resp 18; Pulse Ox 100% on R/A; bh1 MDM: 14:37 Patient medically screened. ms3 15:03 Differential Diagnosis: cardiac arrhythmia, cerebrovascular accident, idiopathic ms3 syncope, seizure, transient ischemic attack, vasovagal episode. 16:28 Data reviewed: vital signs, nurses notes, lab test result(s), EKG, radiologic studies, ms3 and as a result, I will admit patient. Data interpreted: monitoring tech: rate is 50 beats/min, rhythm is sinus bradycardia, with no ectopy, Interpretation: normal rhythm, bradycardia. Counseling: I had a detailed discussion with the patient and/or guardian regarding: the historical points, exam findings, and any diagnostic results supporting the discharge/admit diagnosis, lab results, radiology results, the need for further work-up and treatment in the hospital. ED course: Discussed case with Dr Quinonez. He accepts patient as observation. Patient remains stable in the Emergency Department.. 08/25 14:37 Order name: Basic Metabolic Panel; Complete Time: 16:15 ms3 08/25 14:37 Order name: CBC with Diff; Complete Time: 16:15 ms3 08/25 14:37 Order name: NT PRO-BNP; Complete Time: 16:15 ms3 08/25 14:37 Order name: PT-INR; Complete Time: 16:15 ms3 08/25 14:37 Order name: Troponin HS; Complete Time: 16:15 ms3 08/25 17:33 Order name: COVID-19 SARS RT PCR (Document "Date of Onset" if Symptomatic) bh1 08/25 14:37 Order name: XRAY Chest (1 view); Complete Time: 16:15 ms3 08/25 14:37 Order name: EKG; Complete Time: 14:38 ms3 08/25 14:37 Order name: Cardiac monitoring; Complete Time: 14:57 ms3 08/25 14:37 Order name: EKG - Nurse/Tech; Complete Time: 14:57 ms3 08/25 14:37 Order name: IV Saline Lock; Complete Time: 17:44 ms3 08/25 14:37 Order name: Labs collected and sent; Complete Time: 15:12 ms3 08/25 14:37 Order name: CT Head Brain wo Cont; Complete Time: 16:15 ms3 08/25 14:37 Order name: O2 Per Protocol; Complete Time: 14:57 ms3 08/25 14:37 Order name: O2 Sat Monitoring; Complete Time: 14:57 ms3 08/25 18:37 Order name: Misc. Order: Please interrogate Pacemaker (medtronic); Complete Time: 18:56 la1 EC:56 Rate is 51 beats/min. Rhythm is regular. Left axis deviation noted. Clinical ms3 impression: Sinus bradycardia. Interpreted by me. Reviewed by me. Administered Medications: 19:13 Drug: Semglee 100 unit/mL 25 units Route: Sub-Q; Site: left thigh; 1 19:13 Follow up: Response: No adverse reaction bh1 Point of Care Testing: Blood Glucose: 20:09 Blood Glucose: 139 mg/dL; bh1 20:09 done with labs [facility] Ranges: Critical Glucose Levels:Adult <50 mg/dl or >400 mg/dl <40 mg/dl or >180 mg/dl Disposition Summary: 08/25/21 16:24 Hospitalization Ordered Hospitalization Status: Observation ms3 Location: Telemetry/MedSurg (observation) ms3 Condition: Stable ms3 Problem: new ms3 Symptoms: are unchanged ms3 Bed/Room Type: Standard ms3 Provider: Pipo Mitchell(08/25/21 17:51) [facility] Room Assignment: [facility](08/25/21 19:40) cg Diagnosis - Syncope ms3 - Dizziness ms3 - Diaphoresis ms3 Forms: - Medication Reconciliation Form ms3 - SBAR form ms3 Signatures: Dispatcher [employer] EDArmond Jackson, DANIEL-C PHARMACEUTICAL DETAILER-Cla1 Harmony Gaitan, ANAMARIA RN cg Rodrick Tenorio RN RN jl7 Mat Ayala DO DO ms3 Namrata Pak RN RN 1 Corrections: (The following items were deleted from the chart) 17:51 16:24 Vinicius Quinonez ms3 la1 19:40 16:24 ms3 cg
--- NOTE | 2021-08-25 16:24 | ER ---
Nurse's Notes [facility] Name: Sangita Hendrix Age: 75 yrs Sex: Female : 1945 Arrival Date: 08/25/2021 Time: 14:14 Bed 26 Private MD: Nam Alexander R Diagnosis: Syncope;Dizziness;Diaphoresis Presentation: 08/25 14:33 Chief complaint: Granddaughter: reports pt was diaphoretic then passed out for 3 jl7 minutes. Coronavirus screen: At this time, the client does not indicate any symptoms associated with coronavirus-19. Ebola Screen: No symptoms or risks identified at this time. Initial Sepsis Screen: Does the patient meet any 2 criteria? No. Patient's initial sepsis screen is negative. Does the patient have a suspected source of infection? No. Patient's initial sepsis screen is negative. Risk Assessment: Do you want to hurt yourself or someone else? Patient reports no desire to harm self or others. Onset of symptoms was August 25, 2021. Care prior to arrival: None. 14:33 Method Of Arrival: Wheelchair jl7 14:33 Acuity: MADISYN 3 jl7 Triage Assessment: 14:35 General: Appears in no apparent distress. uncomfortable, Behavior is calm, cooperative, jl7 appropriate for age. Pain: Complains of pain in CULLEN Pain currently is 8 out of 10 on a pain scale. Neuro: Level of Consciousness is awake, alert, obeys commands, Oriented to person, place, time, situation, Reports weakness. Cardiovascular: Denies chest pain, Patient's skin is warm and dry. Respiratory: Airway is patent Respiratory effort is even, unlabored, Respiratory pattern is regular, symmetrical, Denies shortness of breath. GI: Patient currently denies diarrhea, nausea, vomiting. : Denies burning with urination. Derm: Skin is pink, warm \T\ dry. Historical: - Allergies: 14:35 PENICILLINS; jl7 - PMHx: 14:35 BRADYCARDIA; CHF; Dementia; Diabetes - IDDM; Gout; Pacemaker; jl7 - PSHx: 14:35 hysterectomy; jl7 - Immunization history:: Client reports receiving the 2nd dose of the Covid vaccine. - Social history:: Smoking status: Patient denies any tobacco usage or history of. Screenin:12 Abuse screen: Denies threats or abuse. Nutritional screening: No deficits noted. [facility] Tuberculosis screening: No symptoms or risk factors identified. Fall Risk None identified. Assessment: 15:12 Neuro: No deficits noted. Cardiovascular: No deficits noted. Rhythm is sinus [facility] bradycardia. Vital Signs: 14:33 BP 109 / 52; Pulse 53; Resp 17; Temp 97.9; Pulse Ox 100% ; jl7 15:12 BP 133 / 50; Pulse 52; Resp 18; Pulse Ox 99% on R/A; bh1 16:26 Pulse 54; Resp 18; Pulse Ox 98% on R/A; bh1 17:44 BP 158 / 74; Pulse 60; Resp 18; Pulse Ox 100% on R/A; bh1 18:57 BP 147 / 68; Pulse 61; Resp 18; Pulse Ox 100% on R/A; bh1 20:04 BP 147 / 68; Pulse 60; Resp 18; Pulse Ox 100% on R/A; bh1 21:24 BP 147 / 68; Pulse 61; Resp 18; Pulse Ox 100% on R/A; 1 ED Course: 14:14 Patient arrived in ED. am2 14:14 Nam Alexander MD is Private Physician. am2 14:27 Mat Ayala DO is Attending Physician. ms3 14:35 Triage completed. jl7 14:35 Arm band placed on right wrist. jl7 14:37 Namrata Pak, RN is Primary Nurse. 1 15:12 XRAY Chest (1 view) In Process Unspecified. EDMS 15:12 No apparent distress. Awaiting lab results, Awaiting radiology results. 1 15:12 Patient has correct armband on for positive identification. Bed in low position. Call [facility] light in reach. Side rails up X2. Adult w/ patient. campus monitor on. Pulse ox on. NIBP on. 15:12 Basic Metabolic Panel Sent. 1 15:12 CBC with Diff Sent. 1 15:12 NT PRO-BNP Sent. 1 15:12 PT-INR Sent. 1 15:12 Troponin HS Sent. 1 15:12 No provider procedures requiring assistance completed. Missed attempt(s): 22 gauge in [facility] right hand. Bleeding controlled, band aid applied, catheter tip intact. 15:[address] via stretcher. bh1 15:55 CT Head Brain wo Cont In Process Unspecified. EDMS 16:23 Vinicius Quinonez MD is Hospitalizing Provider. ms3 16:25 No apparent distress. Resting quietly. Awaiting bed assignment, Awaiting lab results, [facility] Awaiting radiology results. 17:45 No apparent distress. Resting quietly. Awaiting bed assignment. [facility] 17:45 Inserted saline lock: 24 gauge in left hand, using aseptic technique. 1 17:45 Inserted saline lock: 24 gauge in left hand, using aseptic technique. [facility] 17:51 Hospitalizing Provider role handed off by Vinicius Quinonez MD [facility] 17:51 Pipo Mitchell MD is Hospitalizing Provider. [facility] 20:05 No apparent distress. Resting quietly. Awaiting bed assignment. [facility] 20:09 Patient admitted, IV remains in place. [facility] Administered Medications: 19:13 Drug: Semglee 100 unit/mL 25 units Route: Sub-Q; Site: left thigh; [facility] 19:13 Follow up: Response: No adverse reaction [facility] Medication: 15:12 VIS not applicable for this client. [facility] Point of Care Testing: Blood Glucose: 20:09 Blood Glucose: 139 mg/dL; [facility] 20:09 done with labs [facility] Ranges: Outcome: 16:24 Decision to Hospitalize by Provider. ms3 20:08 Admitted to Tele accompanied by cheryl levine 214, Report called to AMAURY CONRAD [facility] 20:08 Condition: good 20:08 Demonstrated understanding of instructions. 22:10 Patient left the ED. [facility] Signatures: Dispatcher [employer] EDAZ Armond Philip, MEDICAL TRANSCRIPTIONIST-C MEDICAL TRANSCRIPTIONIST-Cla1 Rodrick Tenorio RN RN ishan7 Nafisa Major Deanna 3 Mat Ayala DO DO ms3 Namrata Pak RN RN [facility] Corrections: (The following items were deleted from the chart) 21:24 20:08 Admitted to Tele accompanied by cheryl levine [address], [place] [id number]
--- NOTE | 2021-08-25 17:50 | P.HP ---
Certification for Inpatient Patient admitted to: Observation With expected LOS: <2 Midnights Patient will require the following post-hospital care: Other (Assisted Living Facility) Practitioner: I am a practitioner with admitting privileges, knowledge of patient current condition, hospital course, and medical plan of care. Services: Services provided to patient in accordance with Admission requirements found in Title 42 Section 412.3 of the Code of Federal Regulations Patient History Date of Service: 08/25/21 Allergies Penicillins Allergy (Mild, Verified 03/29/14 22:36) Hives/Rash No Known Allergie Allergy (Uncoded 11/11/15 08:18) Unknown Home Medications: Allopurinol 1 tab PO DAILY 05/30/17 Amiodarone HCl [Cordarone*] 1 tab PO DAILY 05/30/17 Donepezil HCl [Aricept] 1 tab PO BID 05/30/17 Furosemide 1 tab PO DAILY 05/30/17 Hydrocodone/Acetaminophen [Hydrocodone-Acetamin 7.5-325] 1 tab PO Q6HP PRN 05/30/17 Insulin Glargine,Hum.rec.anlog [Lantus] 20 unit SQ DAILYPRN PRN 05/30/17 Potassium Chloride 1 tab PO DAILY 05/30/17 Sacubitril/Valsartan [Entresto 24 mg-26 mg Tablet] 1 tab PO BID 05/30/17 carvediloL [Carvedilol] 1 tab PO BID 05/30/17 - Past Medical/Surgical History Diabetic: Yes -: HLD -: CHF -: HTN -: type 2 diabetes -: Pacer/Defib -: Back sX -: Hysterectomy - Family History Mother -: Hypertension Sister -: Kidney disease Father -: Heart disease Brother -: Heart disease - Social History Alcohol use: No CD- Drugs: No Caffeine use: Yes Physical Examination - Studies Laboratory Data (last 24 hrs) 08/25/21 15:08: PT 13.1 H, INR 1.19 08/25/21 15:08: WBC 3.8 L, Hgb 13.6, Hct 42.1, Plt Count 125 L 08/25/21 15:08: Sodium 140, Potassium 4.8, BUN 28 H, Creatinine 1.97 H, Glucose 139 H Assessment and Plan - Advance Directives Does patient have a Living Will: Yes Does patient have a Durable POA for Healthcare: No
--- NOTE | 2021-08-25 19:15 | P.HP ---
Certification for Inpatient Patient admitted to: Observation With expected LOS: <2 Midnights Patient will require the following post-hospital care: None Practitioner: I am a practitioner with admitting privileges, knowledge of patient current condition, hospital course, and medical plan of care. Services: Services provided to patient in accordance with Admission requirements found in Title 42 Section 412.3 of the Code of Federal Regulations <Armond Philip Amy Parra - Last Filed: 08/25/21 19:02> Patient History Date of Service: 08/25/21 Reason for admission: Syncope History of Present Illness: 75-year-old female with history of chronic systolic congestive heart failure, insulin-dependent diabetes, dementia presents the emergency department for syncope. Patient was at home with her family sitting in a chair when she began to complain of feeling unwell, shortly after this she became diaphoretic and then lost consciousness for approximately 3 minutes. At that time patient's eyes were closed she was nonresponsive to any verbal or physical stimulus at home per family. She is brought into the emergency department for further evaluation her EKG was with sinus bradycardia, patient does chronically have bradycardia her labs were significant for mild thrombocytopenia, stable CKD 3. She is known to have a [employer] pacemaker/defibrillator that was inserted in 2012, family reports is last evaluated in May and was without malfunctions. Requested ED staff to interrogate pacemaker which is currently being completed. At this time patient is back to baseline she has no complaints she cannot recall the events as she has dementia we will need to admit for further evaluation and management of syncopelikely cardiac in nature. - Past Medical/Surgical History Diabetic: Yes -: HLD -: Systolic CHF -: HTN -: type 2 diabetes -: Pacer/Defib -: Back sX -: Hysterectomy Psychosocial/ Personal History: Patient lives at home with family - Family History Mother -: Hypertension Sister -: Kidney disease Father -: Heart disease Brother -: Heart disease - Social History Smoking Status: Never smoker Alcohol use: No CD- Drugs: No Caffeine use: Yes Place of Residence: Home <Armond Philip - Last Filed: 08/25/21 19:02> Date of Service: 08/26/21 <Vinicius Quinonez - Last Filed: 08/26/21 06:05> Allergies Penicillins Allergy (Mild, Verified 03/29/14 22:36) Hives/Rash No Known Allergie Allergy (Uncoded 11/11/15 08:18) Unknown Home Medications: Amiodarone HCl [Cordarone*] 1 tab PO DAILY 05/30/17 Furosemide 1 tab PO DAILY 05/30/17 Insulin Glargine,Hum.rec.anlog [Lantus] 20 unit SQ DAILYPRN PRN 05/30/17 Potassium Chloride 1 tab PO DAILY 05/30/17 Sacubitril/Valsartan [Entresto 24 mg-26 mg Tablet] 1 tab PO DAILY 05/30/17 carvediloL [Carvedilol] 1 tab PO BID 05/30/17 Aspirin [Aspirin EC 81 MG] 81 mg PO DAILY 08/25/21 Clopidogrel Bisulfate [Plavix*] 75 mg PO DAILY 08/25/21 Memantine HCl [Namenda] 10 mg PO DAILY 08/25/21 Rosuvastatin Calcium [Crestor] 20 mg PO DAILY 08/25/21 Tramadol HCl [Ultram] 50 mg PO BID PRN 08/25/21 Review of Systems Unremarkable <Armond Philip - Last Filed: 08/25/21 19:02> Physical Examination - Physical Exam General: Alert, In no apparent distress, Oriented x2 HEENT: Atraumatic, PERRLA, Mucous membr. moist/pink, EOMI, Sclerae nonicteric Neck: Supple, 2+ carotid pulse no bruit, No LAD, Without JVD or thyroid abnormality Respiratory: Clear to auscultation bilaterally, Normal air movement Cardiovascular: Regular rate/rhythm, Normal S1 S2 Capillary refill: <2 Seconds Gastrointestinal: Normal bowel sounds, No tenderness Musculoskeletal: No tenderness Integumentary: No rashes Neurological: Normal speech, Normal strength at 5/5 x4 extr, Normal tone, Normal affect Lymphatics: No axilla or inguinal lymphadenopathy - Studies Laboratory Data (last 24 hrs) 08/25/21 15:08: PT 13.1 H, INR 1.19 08/25/21 15:08: WBC 3.8 L, Hgb 13.6, Hct 42.1, Plt Count 125 L 08/25/21 15:08: Sodium 140, Potassium 4.8, BUN 28 H, Creatinine 1.97 H, Glucose 139 H <Armond Philip - Last Filed: 08/25/21 19:02> - Studies Laboratory Data (last 24 hrs) 08/25/21 15:08: PT 13.1 H, INR 1.19 08/25/21 15:08: WBC 3.8 L, Hgb 13.6, Hct 42.1, Plt Count 125 L 08/25/21 15:08: Sodium 140, Potassium 4.8, BUN 28 H, Creatinine 1.97 H, Glucose 139 H <Vinicius Quinonez - Last Filed: 08/26/21 06:05> Assessment and Plan - Plan Assessment: Syncopesuspect cardiac Chronic systolic congestive heart failure with pacemaker/defibrillator Diabetes type 2insulin-dependent CKD 3 Hyperlipidemia Dementia Plan: Syncopesuspect cardiac: Monitor on tele, trend troponins, pacemaker being interrogated now. Cardiology consult in place. home meds including amiodarone. pt at baseline now. Will review results from PM interrogation, appreciate further input from cardiology. Chronic systolic congestive heart failure with pacemaker/defibrillator: Home meds continued including entresto, lasix. cardiology consulted, does not appear overloaded Diabetes type 2insulin-dependent: Pt takes lantus 20 units nightly, will continue with mild SS CKD 3: stable, consult nephrology for worsening. Hyperlipidemia: continue statin Dementia: continue home med DVT PPX:Heparin Code status:Full Discharge Plan: Home Plan to discharge in: 24 Hours - Advance Directives Does patient have a Living Will: Yes Does patient have a Durable POA for Healthcare: No - Code Status/Comfort Care Code Status Assessed: Yes (Full code) Critical Care: No Time Spent Managing Pts Care (In Minutes): 70 <Armond Philip - Last Filed: 08/25/21 19:02> Physician Review Additional Text: I was asked to co-sign this H&P. I have not seen or examined this patient. She was admitted to Dr. Mitchell's service. Please refer to his notes for plan of care. <Vinicius Quinonez - Last Filed: 08/26/21 06:05>
[2021-08-25] MEDS ORDERED: INSULIN GLARGINE 100 UNIT/ML SQ ONE (19:16)
[2021-08-25] MEDS ORDERED: ONDANSETRON 4 MG/2 ML VIAL IV PRN (21:43)
[2021-08-25] MEDS ORDERED: TRAMADOL HCL 50 MG TAB PO PRN (21:43)
[2021-08-25] MEDS: INSULIN -REGULAR HUMAN 50 UNIT/0.5 ML ML SQ SCH (21:43)
[2021-08-25] MEDS ORDERED: SACUBITRIL/VALSARTAN 24/26 MG TAB PO SCH (21:43)
[2021-08-25] MEDS ORDERED: ROSUVASTATIN 10 MG TAB PO SCH (21:43)
[2021-08-25 22:45] VITALS: BMI 41.6
[2021-08-25] MEDS: HEPARIN 5000 UNIT/ML 1 ML VIAL SQ SCH (23:09)
[2021-08-25 23:27] VITALS: O2SAT 100
[2021-08-26 06:26] LABS: Absolute Lymphocytes (CBC) 1.1 K/uL (0.7-4.9); Hematocrit 39.8 % (36.0-45.0); Lymphocytes % 21.9 % (15.3-44.8); MCV 91.2 fL (80-100); MPV 9.9 fL (7.6-11.3); RBC Red Blood Cell Count 4.37 M/uL (3.86-4.86)
[2021-08-26 06:53] LABS: Albumin 3.3 g/dL (3.4-5.0); Bilirubin Total 0.2 mg/dL (0.2-1.0); Magnesium 2.4 mg/dL (1.8-2.4); Potassium 4.2 mmol/L (3.5-5.1); Protein, Total 6.7 g/dL (6.4-8.2); Troponin High Sensitivity 19.3 pg/mL (<58.9)
[2021-08-26] MEDS: INSULIN -REGULAR HUMAN 50 UNIT/0.5 ML ML SQ SCH (07:30)
[2021-08-26] MEDS ORDERED: carvediloL 6.25 MG TAB PO SCH (08:00)
[2021-08-26 08:46] VITALS: TEMP 97.5
[2021-08-26] MEDS ORDERED: FUROSEMIDE 40 MG TABLET PO SCH (09:00)
[2021-08-26] MEDS ORDERED: MEMANTINE HCL 10 MG TABLET PO SCH (09:00)
[2021-08-26] MEDS ORDERED: SACUBITRIL/VALSARTAN 24/26 MG TAB PO SCH (09:00)
[2021-08-26] MEDS ORDERED: AMIODARONE HCL 200 MG TAB PO SCH (09:00)
[2021-08-26] MEDS ORDERED: ASPIRIN EC 81 MG TAB PO SCH (09:00)
[2021-08-26] MEDS ORDERED: CLOPIDOGREL 75 MG TABLET PO SCH (09:00)
[2021-08-26] MEDS: HEPARIN 5000 UNIT/ML 1 ML VIAL SQ SCH (09:09)
[2021-08-26 09:11] VITALS: BP 150/61
--- NOTE | 2021-08-26 10:16 | P.DS ---
Admission Date: 08/25/21 Discharge Date: 08/26/21 Discharge Condition: FAIR Reason for Admission: Syncope Brief History of Present Illness: 75years of age metabolic syndrome admitted with acute onset of syncopal attack Hospital Course: /apparently she was sitting in a chair passed out for 3 minutes there was no postictal symptoms no prior history of seizures no chest pain no palpitations at time of discharge patient alert oriented responsive cooperative daughter at the bedside annual nerves normal there is no weakness of her extremity no problems swallowing but oriented x3 vital signs stable chest clear labs reviewed unremark able CT of the head is normal chest x-ray alexus daughter present at the bedside have been from heat exhaustion Vital Signs/Physical Exam: Temp Pulse Resp BP Pulse Ox 97.5 F 56 18 150/61 H 100 08/26/21 08:00 08/26/21 09:09 08/26/21 08:00 08/26/21 09:09 08/26/21 08:00 Laboratory Data at Discharge: WBC 5.2 K/uL (4.3-10.9) D 08/26/21 06:14 Hgb 13.2 g/dL (12.0-15.0) 08/26/21 06:14 Hct 39.8 % (36.0-45.0) 08/26/21 06:14 Plt Count 122 K/uL (152-406) L 08/26/21 06:14 PT 13.1 SECONDS (9.5-12.5) H 08/25/21 15:08 INR 1.19 08/25/21 15:08 Sodium 142 mmol/L (136-145) 08/26/21 06:14 Potassium 4.2 mmol/L (3.5-5.1) 08/26/21 06:14 BUN 31 mg/dL (7-18) H 08/26/21 06:14 Creatinine 1.88 mg/dL (0.55-1.3) H 08/26/21 06:14 Glucose 106 mg/dL (74-106) 08/26/21 06:14 Magnesium 2.4 mg/dL (1.8-2.4) 08/26/21 06:14 Total Bilirubin 0.2 mg/dL (0.2-1.0) 08/26/21 06:14 AST 14 U/L (15-37) L 08/26/21 06:14 ALT 20 U/L (12-78) 08/26/21 06:14 Alkaline Phosphatase 85 U/L (45-117) 08/26/21 06:14 Home Medications: Amiodarone HCl [Cordarone*] 1 tab PO DAILY 05/30/17 Furosemide 1 tab PO DAILY 05/30/17 Insulin Glargine,Hum.rec.anlog [Lantus] 20 unit SQ DAILYPRN PRN 05/30/17 Potassium Chloride 1 tab PO DAILY 05/30/17 Sacubitril/Valsartan [Entresto 24 mg-26 mg Tablet] 1 tab PO DAILY 05/30/17 carvediloL [Carvedilol] 1 tab PO BID 05/30/17 Aspirin [Aspirin EC 81 MG] 81 mg PO DAILY 08/25/21 Clopidogrel Bisulfate [Plavix*] 75 mg PO DAILY 08/25/21 Memantine HCl [Namenda] 10 mg PO DAILY 08/25/21 Rosuvastatin Calcium [Crestor] 20 mg PO DAILY 08/25/21 Tramadol HCl [Ultram] 50 mg PO BID PRN 08/25/21 Followup: Nam Alexander MD [Primary Care Provider] -
[2021-08-26] MEDS ORDERED: INSULIN GLARGINE 100 UNIT/ML SQ SCH (18:00)
--- NOTE | 2021-08-28 13:55 | EKG ---
Test Date: 2021-08-25 Test Time: 14:56:37 Director Special Education: MEASUREMENT RESULTS: Intervals: Rate: 51 GA: 204 QRSD: 114 QT: 516 QTc: 475 [place]: P: 71 GA: 204 QRS: -32 T: 60 INTERPRETIVE STATEMENTS: Sinus bradycardia Left axis deviation Septal infarct, age undetermined Possible Lateral infarct, age undetermined Abnormal ECG Compared to ECG 05/20/2021 19:45:16 Sinus rhythm no longer present Prolonged QT interval no longer present Myocardial infarct finding still present Electronically Signed On 08-28-21 13:49:19 CDT by Lee Garza
--- OUTSIDE RECORDS SUMMARY | 2021-09-06 18:30 | XMS REPORT | Continuity of Care Document ---
:1945 Author Organization [facility] t Address [address] [place] [address] Care Team Providers Name Role Phone MARGA FORTUNE Primary Care Physician Unavailable FRANKI Attending Clinician Unavailable Franki VILLAGOMEZ Attending Clinician Gavino VILLAGOMEZ Attending Clinician FRANKI Admitting Clinician Unavailable Payers Payer Name Policy Type Policy Number Effective Date Expiration Date S ource HUMANA PPO SELECT [id number] 2018 ASO 00:00:00 HU[employer]NA MEDICARE [id number] 2018 ADV 00:00:00 ERS MEDICARE [id number] ADVANTAGE PPO-[facility] MEDICARE [id number] ADVANTAGE PPO Problems Condition Condition Condition Status Onset Resolution Last Treating Co mments Source Name Details Category Date Date Treatment Clinician Date Increased Increased Disease Active [facility] BMI (body BMI (body 4-10 [facility] mass mass 00:00: of index) index) 00 Medicin e Status Status Disease Active [facility] post post 1-28 College femorotibi femorotibi 00:00: of al bypass al bypass 00 Medi ed e PAD PAD Disease Active Overview: [facility] (periphera (periphera 5-15 [employer] l artery l artery 00:00: g of this of disease) disease) 00 note Medici n (HCCode) (HCCode) might be e different from the original. LEFT sp SFA stent occluded, occluded PT and Peroneal , patent AT PAD PAD Disease Active Overview: [facility] (periphera (periphera 5-15 LEFT sp C ollege l artery l artery 00:00: SFA stent of disease) disease) 00 occluded, Med icin (HCCode) (HCCode) occluded e PT and Peroneal , patent AT Essential Essential Disease Active [facility] hypertensi hypertensi 5-15 Co llege on on 00:00: of 00 Medicin e Pacemaker Pacemaker Disease Active Overview: [facility] 02-18 [facility] 00:00: g of this note Medicin might be e different from the original. PPM MDT [id number] Dr Gonzalez CAD CAD Disease Active Overview: [facility] (coronary (coronary 02-18 [facility] C ollege artery artery 00:00: g of this of disease) disease) 00 note Medici n might be e different from the original. Non obstructi ve as per cath 2009 Cardiomyop Cardiomyop Disease Active Overview : [facility] athy, athy, 02-18 [facility] ischemic ischemic 00:00: g of this note Medicin might be e different from the original. reported EF in the range 15% as of 2014 by TTE Hyperlipid Hyperlipid Disease Active [facility] em[facility] Medicin e Type 2 Type 2 Disease Active [facility] diabetes diabetes Colle e mellitus mellitus of without without Medicin complicati complicati e on on (HCCode) (HCCode) Hypertensi Hypertensi Disease Active [facility] on on [place] of Medicin e Allergies, Adverse Reactions, Alerts Allergy Allergy Status Severity Reaction(s) Onset Inactive Treating Comm ents Source Name Type Date Date Clinician PENICILL Allergy Active Hives [facility] 05-28 00:00: 00 Social History Social Habit Start Date Stop Date Quantity Comments Source Exposure to Not sure [facility] Sid patel SARS-CoV-2 of Medicine (event) Alcohol intake 2021-03-03 2021-03-03 Ex-drinker [facility] Col lege 00:00:00 00:00:00 (finding) of Medicine Tobacco use and 2018-05-28 2018-05-28 Smokeless tobacco [facility] exposure 00:00:00 00:00:00 non-user of Medicine Sex Ass[birth year] [facility] [employer] 00:00:00 00:00:00 of Medicine Smoking Status Start Date Stop Date Source Never smoked tobacco [facility]ett [facility]ge of Medicine Medications Ordered Filled Start Stop Current Ordering Indication Dosage Frequency Signature Comments Components Source Medication Medication Date Date Medication? Clinician (SIG) Name Name CINTHIA Yes Take by [facility] ASPIRIN OR 1-12 mouth [place] 14:46: daily. of 23 Medicin e VITAMIN [...] memantine 2020-02 Yes 5mg Take 5 mg [facility] (NAMENDA) 5 2-06 by mouth [facility]ett [facility] MG tablet 00:00: daily. of 00 Medicin e BABY 2019-02 Yes Take by [facility] ASPIRIN OR 2-16 mouth [place] 21:49: daily. of 25 Medicin e VITAMIN E 2019-02 Yes Take by [facility] OR 2-16 mouth. College 21:49: of 25 Medicin e Ascorbic 2019-02 Yes Take by [facility] Acid 2-16 mouth. [place] (VITAMIN C 21:49: of OR) 25 Medicin [...] e clopidogrel 2019- No 75mg Take 1 [facility] (PLAVIX) 75 2-16 -12 Tablet by Co llege MG Tablet 00:00: 00:00 mouth of 00 :00 daily. Medicin e gabapentin 2019-02 No 300mg Take 1 [facility] (NEURONTIN) 2-16 -12 capsule by C [...] Pain. clopidogrel 2019-02- No 75mg Take 1 [facility] (PLAVIX) 75 2-07 12-16 Tablet by Co llege MG Tablet 00:00: 00:00 mouth of 00 :00 daily. Medicin e tramadol 2019-02 Yes 50mg Take 50 mg [facility] (ULTRAM) 50 1-14 by mouth. Col lege MG tablet 00:00: of 00 Medicin e BABY 2019-02 Yes Take by [facility] ASPIRIN OR 0-07 mouth College 18:07: daily. [...] Medicin e BABY 2019-0 Yes Take by [facility] ASPIRIN OR 7-08 mouth College 16:06: daily. of 52 Medicin e clopidogrel 2020-0 2020- No 75mg Take 1 Tab [facility] (PLAVIX) 75 7-08 10-07 by mouth Col lege MG Tablet 00:00: 04:59 daily for of 00 :00 90 days. Medicin e clopidogrel 2020-0 2020- No 75mg Take 1 Tab [facility] (PLAVIX) 75 6-05 07-08 by mouth Col [...] Take by [facility] Bisulfate 4-08 mouth. [place] (PLAVIX OR) 16:06: of 03 Medicin e BABY 2020-0 Yes Take by [facility] ASPIRIN OR 4-08 mouth [place] 16:06: daily. of 03 Medicin e Clopidogrel 2020-0 Yes Take by [facility] Bisulfate 1-15 mouth. [place] (PLAVIX OR) 16:26: of 10 Medicin e BABY 2020-0 Yes Take by [facility] ASPIRIN OR 1-15 mouth [place] 16:26: daily. of 10 Medicin e Clopidogrel 2020-0 Yes Take by [facility] Bisulfate 1-15 mouth. [place] (PLAVIX OR) 16:26: of 10 Medicin e BABY 2020-0 Yes Take by [facility] ASPIRIN OR 1-15 mouth [place] 16:26: daily. of 10 Medicin e gabapentin 2020-0 Yes 300mg Take 1 Cap [facility] (NEURONTIN) 1-03 by mouth 3 Co llege 300 MG 00:00: times of capsule 00 daily. Medicin e gabapentin 2020-0 Yes 300mg Take 1 Cap [facility] (NEURONTIN) 1-03 by mouth 3 Co llege 300 MG 00:00: times of capsule 00 daily. Medicin e gabapentin 2020-0 Yes 300mg Take 1 Cap [facility] (NEURONTIN) 1-03 by mouth 3 Co llege 300 MG 00:00: times of capsule 00 daily. Medicin e acetaminoph 2019-1 2020- No 650mg Take 650 [facility] en 325 mg 1-29 11-24 mg by College tablet 00:00: 05:59 mouth. of 00 :00 Medicin e acetaminoph 2018-02 2020- No 650mg Take 650 [facility] en 325 mg 1-29 11-24 mg by College tablet 00:00: 05:59 mouth. of 00 :00 Medicin e acetaminoph 2018-02 2020- No 650mg Take 650 [facility] en 325 mg 1-29 11-24 mg by College tablet 00:00: 05:59 mouth. of 00 :00 Medicin e acetaminoph 2018-02 2020- No 650mg Take 650 [facility] en 325 mg 1-29 11-24 mg by College tablet 00:00: 05:59 mouth. of 00 :00 Medicin e acetaminoph 2018-02- No 650mg Take 650 [facility] en 325 mg 1-29 11-24 mg by College tablet 00:00: 05:59 mouth. of 00 :00 Medicin e Clopidogrel 0 Yes Take by [facility] Bisulfate 9-30 mouth. [place] (PLAVIX OR) 21:13: of 04 Medicin e BABY Yes Take by [facility] ASPIRIN OR 9-30 mouth [place] 21:13: daily. of 04 Medicin e rosuvastati 0 Yes Dash n (CRESTOR) 4-03 College 20 MG 00:00: of tablet 00 Medicin e acetaminoph 2018-0 Yes TK 1 T PO B aylor en-codeine 4-03 QD. [place] (TYLENOL 00:00: of #3) 300-30 00 Medicin MG per e tablet rosuvastati 2018-0 Yes [facility] n (CRESTOR) 4-03 College 20 MG 00:00: of tablet 00 Medicin e acetaminoph 2018-0 Yes TK 1 T PO B aylor en-codeine 4-03 QD. [place] (TYLENOL 00:00: of #3) 300-30 00 Medicin MG per e tablet rosuvastati 2018-0 Yes [facility] n (CRESTOR) 4-03 College 20 MG 00:00: of tablet 00 Medicin e acetaminoph 2018-0 Yes TK 1 T PO B aylor en-codeine 4-03 QD. [place] (TYLENOL 00:00: of #3) 300-30 00 Medicin [...] memantine 2019-0 Yes TK 1 T PO [facility] (NAMENDA) 3-28 BID College 10 MG 00:00: of tablet 00 Medicin e memantine Yes TK 1 T PO [facility] (NAMENDA) 3-28 BID College 10 MG 00:00: of tablet 00 Medicin e memantine 2018- Yes TK 1 T PO [facility] (NAMENDA) 3-28 BID College 10 MG 00:00: of tablet Medicin e memantine Yes TK 1 T PO [facility] (NAMENDA) 3-28 BID College 10 MG 00:00: of tablet 00 Medicin e memantine Yes TK 1 T PO [facility] (NAMENDA) 3-28 BID College 10 MG 00:00: of tablet Medicin e memantine Yes 10mg 10 mg [facility] (NAMENDA) 3-28 daily. College 10 MG 00:00: of tablet Medicin e memantine 2018- Yes TK 1 T PO [facility] (NAMENDA) 3-28 BID College 10 MG 00:00: of tablet Medicin e memantine 2018- Yes TK 1 T PO [facility] (NAMENDA) 3-28 BID College 10 MG 00:00: of tablet Medicin e potassium 2018- Yes TK 1 T PO [facility] chloride [address] ([place], 00:00: of KLOR-CON Medicin M20) 20 MEQ e tablet potassium 2018- Yes TK 1 T PO [facility] chloride SA [address] ([place], 00:00: of KLOR-CON Medicin M20) 20 MEQ e tablet potassium 2018- Yes TK 1 T PO [facility] chloride SA [address] ([place], 00:00: of KLOR-CON Medicin M20) 20 MEQ e tablet potassium 2018- Yes TK 1 T PO [facility] chloride [place] [address] ([place], 00:00: of KLOR-CON Medicin M20) 20 MEQ e tablet potassium Yes TK 1 T PO [facility] chloride SA 04-22 [facility] (K-DUR, 00:00: of KLOR-CON Medicin M20) 20 MEQ e tablet potassium Yes TK 1 T PO Mobile raj chloride SA 04-22 [facility] (K-DUR, 00:00: of KLOR-CON Medicin M20) 20 MEQ e tablet potassium Yes TK 1 T PO Mobile raj chloride SA 04-22 [facility] (K-DUR, 00:00: of KLOR-CON Medicin M20) 20 MEQ e tablet potassium 2021- No TK 1 T PO [facility] chloride SA 04-22 [facility] (KD[facility], 00:00: 00:00 of KLOR-CON 00 :00 [...] cm Heart rate 2021-03-01 20:43:00 65 /min [facility] of [facility] Body height 2021-03-01 20:43:00 152.4 cm [facility] of Medicine Body weight 2021-03-01 20:43:00 97.523 kg [facility] of Medicine BMI 2021-03-01 20:43:00 41.99 kg/m2 [facility] of Medicine Systolic blood 2020-02-03 21:48:00 156 mm[Hg] [facility] of pressure Medicine Diastolic blood 2020-02-03 21:48:00 73 mm[Hg] [facility] College of pressure Medicine Heart rate 2020-02-03 21:48:00 63 /min [facility] of Medicine Body height 2020-02-03 21:48:00 152.4 cm [facility] of Medicine Body weight 2020-02-03 21:48:00 97.523 kg [facility] of Medicine BMI 2020-02-03 21:48:00 41.99 kg/m2 [facility] of Medicine Systolic blood 2020-02-03 21:48:00 156 mm[Hg] [facility] of pressure Medicine Diastolic blood 2020-02-03 21:48:00 73 mm[Hg] [facility] College of pressure Medicine Heart rate 2020-02-03 21:48:00 63 /min [facility] of Medicine Body height 2020-02-03 21:48:00 152.4 cm [facility] of Medicine Body weight 2020-02-03 21:48:00 97.523 kg [facility] of Medicine BMI 2020-02-03 21:48:00 41.99 kg/m2 [facility] Medicine WEIGHT 2020-01-18 05:39:00 99.111 kg HEIGHT 2020-01-18 05:39:00 162.6 cm WEIGHT 2020-01-15 08:13:00 100.245 kg HEIGHT 2020-01-15 08:13:00 162.6 cm WEIGHT 2020-01-15 08:13:00 100.245 kg HEIGHT 2020-01-15 08:13:00 162.6 cm Systolic blood 2019-11-25 18:06:00 150 mm[Hg] [facility] of pressure Medicine Diastolic blood 2019-11-25 18:06:00 84 mm[Hg] [facility] of pressure Medicine Heart rate 2019-11-25 18:06:00 67 /min [facility] of Medicine Body height 2019-11-25 18:06:00 162.6 cm [facility] of Medicine Body weight 2019-11-25 18:06:00 81.647 kg [facility] of Medicine BMI 2019-11-25 18:06:00 30.90 kg/m2 [facility] of Medicine Systolic blood 2019-11-25 18:06:00 150 mm[Hg] [facility] of pressure Medicine Diastolic blood 2019-11-25 18:06:00 84 mm[Hg] [facility] of pressure Medicine Heart rate 2019-11-25 18:06:00 67 /min [facility] of Medicine Body height 2019-11-25 18:06:00 162.6 cm [facility] Medicine Body weight 2019-11-25 18:06:00 81.647 kg [facility] BMI 2019-11-25 18:06:00 30.90 kg/m2 [facility] of Medicine Systolic blood 2019-08-26 16:05:00 164 mm[Hg] [facility] of pressure Medicine Diastolic blood 2019-08-26 16:05:00 89 mm[Hg] [facility] of pressure Medicine Heart rate 2019-08-26 16:05:00 65 /min [facility] Medicine Body height 2019-08-26 16:05:00 162.6 cm [facility] Body weight 2019-08-26 16:05:00 81.647 kg [facility] Medicine BMI 2019-08-26 16:05:00 30.90 kg/m2 [facility] of Medicine Systolic blood 2019-08-26 16:05:00 164 mm[Hg] [facility] of pressure Medicine Diastolic blood 2019-08-26 16:05:00 89 mm[Hg] [facility] of pressure Medicine Heart rate 2019-08-26 16:05:00 65 /min [facility] Medicine Body height 2019-08-26 16:05:00 162.6 cm [facility] Body weight 2019-08-26 16:05:00 81.647 kg [facility] Medicine BMI 2019-08-26 16:05:00 30.90 kg/m2 [facility] of Medicine Systolic blood 2019-05-27 16:05:00 167 mm[Hg] [facility] of pressure Medicine Diastolic blood 2019-05-27 16:05:00 90 mm[Hg] [facility] of pressure Medicine Heart rate 2019-05-27 16:05:00 60 /min [facility] Body height 2019-05-27 16:05:00 162.6 cm [facility] Body weight 2019-05-27 16:05:00 81.647 kg [facility] Medicine BMI 2019-05-27 16:05:00 30.90 kg/m2 [facility] of Medicine Systolic blood 2019-05-27 16:05:00 167 mm[Hg] [facility] of pressure Medicine Diastolic blood 2019-05-27 16:05:00 90 mm[Hg] [facility] of pressure Medicine Heart rate 2019-05-27 16:05:00 60 /min [facility] Body height 2019-05-27 16:05:00 162.6 cm [facility] Body weight 2019-05-27 16:05:00 81.647 kg [facility] BMI 2019-05-27 16:05:00 30.90 kg/m2 [facility] of Medicine Systolic blood 2019-03-18 15:08:00 135 mm[Hg] [facility] [employer] of pressure Medicine Diastolic blood 2019-03-18 15:08:00 68 mm[Hg] [facility] pressure Medicine Heart rate 2019-03-18 15:08:00 60 /min [facility] Body weight 2019-03-18 15:08:00 96.616 kg [facility] BMI 2019-03-18 15:08:00 36.56 kg/m2 [facility] Medicine Systolic blood 2019-03-18 15:08:00 135 mm[Hg] [facility] Medicine Diastolic blood 2019-03-18 15:08:00 68 mm[Hg] [facility] Medicine Heart rate 2019-03-18 15:08:00 60 /min [facility] of Medicine Body weight 2019-03-18 15:08:00 96.616 kg [facility] BMI 2019-03-18 15:08:00 36.56 kg/m2 [facility] Body weight 2019-03-04 16:25:00 104.327 kg [facility] BMI 2019-03-04 16:25:00 39.48 kg/m2 [facility] Body weight 2019-03-04 16:25:00 104.327 kg [facility] BMI 2019-03-04 16:25:00 39.48 kg/m2 [facility] of Medicine Systolic blood 2018-11-17 21:24:00 140 mm[Hg] [facility] Medicine Diastolic blood 2018-11-17 21:24:00 80 mm[Hg] [facility] Medicine Heart rate 2018-11-17 21:24:00 63 /min [facility] Body height 2018-11-17 21:11:00 162.6 cm [facility] Body weight 2018-11-17 21:11:00 102.967 kg [facility] BMI 2018-11-17 21:11:00 38.96 kg/m2 [facility] Medicine Systolic blood 2018-11-17 21:24:00 140 mm[Hg] [facility] of pressure Medicine Diastolic blood 2018-11-17 21:24:00 80 mm[Hg] [facility] Medicine Heart rate 2018-11-17 21:24:00 63 /min [facility] Body height 2018-11-17 21:11:00 162.6 cm [facility] Body weight 2018-11-17 21:11:00 102.967 kg [facility] BMI 2018-11-17 21:11:00 38.96 kg/m2 [facility] Procedures Procedure Date / Time Performing Clinician Source Performed ELECTROCARDIOGRAM COMPLETE 2018-11-17 22:58:11 Michael Mancia [facility] Plan of Care Planned Activity Planned Date Details Comments Source Future Scheduled 2021-03-03 Screening for [facility] Test 09:26:26 malignant neoplasm of Medici ne of colon (procedure) [code = 945833643] Future Scheduled 2021-03-03 Screening for [facility] Test 09:26:26 malignant neoplasm of Medici ne of breast (procedure) [code = 660474788] Future Scheduled 2021-03-03 Pneumococcal 65+ (1 [facility] or [facility] Test 09:26:26 of 2 - PPSV23) [code of Medi cine = Pneumococcal 65+ (1 of 2 - PPSV23)] Future Scheduled 2021-03-03 COVID-19 Vaccine (1) [facility] Test 09:26:26 [code = COVID-19 of Medicine Vaccine (1)] Future Scheduled 2021-03-03 TETANUS SHOT (ADULT) [facility] Test 09:26:26 [code = TETANUS SHOT of Medi cine (ADULT)] Future Scheduled 2021-03-03 Diabetic foot [facility] Col [facility]ge Test 09:26:26 examination of Medicine (regime/therapy) [code = [id number]] Future Scheduled 2021-03-03 ANNUAL DIABETIC [facility] C [facility] Test 09:26:26 RETINOPATHY of Medicine SCREENING [code = ANNUAL DIABETIC RETINOPATHY SCREENING] Future Scheduled 2021-03-03 Hepatitis C [facility] Test 09:26:26 screening of Medicine (procedure) [code = 121005093] Future Scheduled 2021-03-03 ZOSTER VACCINE (1 of [facility] College Test 09:26:26 2) [code = ZOSTER of Medicin e VACCINE (1 of 2)] Future Scheduled 2021-03-03 Screening for [facility] Test 09:26:26 osteoporosis of Medicine (procedure) [code = [id number]] Future Scheduled 2021-03-03 MEDICARE AWV [facility] Test 09:26:26 (Initial) [code = of Medicin e MEDICARE AWV (Initial)] Future Scheduled 2021-03-03 BMI FOLLOW UP PLAN [employer] Test 09:26:26 [code = BMI FOLLOW of Medici ne UP PLAN] Future Scheduled 2021-03-03 FLU VACCINE > 6 [facility] Test 09:26:26 MONTHS [code = FLU of Medici ne VACCINE > 6 MONTHS] Future Scheduled 2021-03-03 FALL SCREEN [code = [facility] Test 09:26:26 FALL SCREEN] of Medicine Future Scheduled 2021-03-01 US ARTERIAL LEG LEFT 1 Occurrences [employer] [facility] [employer] Test 14:57:35 [code = 84570] starting of Medicine 03/01/2021 until 03/01/2022 Future Scheduled BMI FOLLOW UP PLAN [employer] Test [code = BMI FOLLOW of Medici ne UP PLAN] Future Scheduled HEPATITIS C [facility] Test SCREENING [code = of Medicin e HEPATITIS C SCREENING] Future Scheduled FALL SCREEN [code = [facility] [employer] Test FALL SCREEN] of Medicine Future Scheduled OSTEOPOROSIS [facility] Test SCREENING [code = of Medicin e OSTEOPOROSIS SCREENING] Future Scheduled PNEUMOVAX >=65 [facility] Co [facility] Test (PPSV23) [code = of Medicine PNEUMOVAX >=65 (PPSV23)] Future Scheduled PREVNAR >= 65 [facility] Col [facility]ge Test (PCV13) [code = of Medicine PREVNAR >= 65 (PCV13)] Future Scheduled MEDICARE AWV [facility] Test (Initial) [code = of Medicin e MEDICARE AWV (Initial)] Future Scheduled FLU VACCINE > 6 [facility] C [facility]lege Test MONTHS [code = FLU of Medici ne VACCINE > 6 MONTHS] Future Scheduled COLON CANCER [facility] Test SCREENING: of Medicine COLONOSCOPY [code = COLON CANCER SCREENING: COLONOSCOPY] Future Scheduled MAMMOGRAM ANNUAL [facility] College Test [code = MAMMOGRAM of Medicin e ANNUAL] Future Scheduled TETANUS SHOT (ADULT) [facility] Test [code = TETANUS SHOT of Medi cine (ADULT)] Future Scheduled Diabetic foot [facility] Col [facility]ge Test examination of Medicine (regime/therapy) [code = [id number]] Future Scheduled ANNUAL DIABETIC [facility] C [facility] Test RETINOPATHY of Medicine SCREENING [code = ANNUAL DIABETIC RETINOPATHY SCREENING] Future Scheduled HEPATITIS C [facility] Test SCREENING [code = of Medicin e HEPATITIS C SCREENING] Future Scheduled FALL SCREEN [code = [facility] Test FALL SCREEN] of Medicine Future Scheduled OSTEOPOROSIS [facility] Test SCREENING [code = of Medicin e OSTEOPOROSIS SCREENING] Future Scheduled PNEUMOVAX >=65 [facility] Test (PPSV23) [code = of Medicine PNEUMOVAX >=65 (PPSV23)] Future Scheduled PREVNAR >= 65 [facility] Col [facility] Test (PCV13) [code = of [...] CANCER SCREENING: COLONOSCOPY] Future Scheduled MAMMOGRAM ANNUAL [facility] Test [code = MAMMOGRAM of Medicin e ANNUAL] Future Scheduled TETANUS SHOT (ADULT) [facility] Test [code = TETANUS SHOT of Medi cine (ADULT)] Future Scheduled Diabetic foot [facility] Test examination of Medicine (regime/therapy) [code = [id number]] Future Scheduled ANNUAL DIABETIC [facility] [...] e OSTEOPOROSIS SCREENING] Future Scheduled MEDICARE AWV [facility] Test (Initial) [code = of [...] CANCER SCREENING: COLONOSCOPY] Future Scheduled MAMMOGRAM ANNUAL [facility] Test [code = MAMMOGRAM of Medicin e ANNUAL] Future Scheduled TETANUS SHOT (ADULT) [facility] Test [code = TETANUS SHOT of Medi cine (ADULT)] Future Scheduled Diabetic foot [facility] Test examination of Medicine (regime/therapy) [code = [id number]] Future Scheduled ANNUAL DIABETIC [facility] C [facility] Test RETINOPATHY of Medicine SCREENING [code = ANNUAL DIABETIC RETINOPATHY SCREENING] Future Scheduled HEPATITIS C [facility] Test SCREENING [code = of Medicin e HEPATITIS C SCREENING] Future Scheduled ZOSTER VACCINE (1 of [facility] Test 2) [code = ZOSTER of Medicin e VACCINE (1 of 2)] Future Scheduled FALL SCREEN [code = [facility] [facility] Test FALL SCREEN] of Medicine Future Scheduled OSTEOPOROSIS [facility] Test SCREENING [code = of Medicin e OSTEOPOROSIS SCREENING] Future Scheduled MEDICARE AWV [facility] Test (Initial) [code = of Medicin e MEDICARE AWV (Initial)] Future Scheduled FLU VACCINE > 6 [facility] Test MONTHS [code = FLU of Medici ne VACCINE > 6 MONTHS] Future Scheduled BMI FOLLOW UP PLAN [employer] Test [code = BMI FOLLOW of Medici ne UP PLAN] Future Scheduled COLON CANCER [facility] Test SCREENING: of Medicine COLONOSCOPY [code = COLON CANCER SCREENING: COLONOSCOPY] Future Scheduled MAMMOGRAM ANNUAL [facility] Test [code = MAMMOGRAM of Medicin e ANNUAL] Future Scheduled TETANUS SHOT (ADULT) [employer] Test [code = TETANUS SHOT of Medi cine (ADULT)] Future Scheduled Diabetic foot [facility] Col lege Test examination of Medicine (regime/therapy) [code = 918679389] Future Scheduled ANNUAL DIABETIC [facility] C [employer]lege Test RETINOPATHY of Medicine SCREENING [code = ANNUAL DIABETIC RETINOPATHY SCREENING] Future Scheduled HEPATITIS C [facility] Test SCREENING [code = of Medicin e HEPATITIS C SCREENING] Future Scheduled ZOSTER VACCINE (1 of [employer] Test 2) [code = ZOSTER of Medicin e VACCINE (1 of 2)] Future Scheduled FALL SCREEN [code = [employer] Test FALL SCREEN] of Medicine Future Scheduled OSTEOPOROSIS [facility] Janett ege Test SCREENING [code = of Medicin e OSTEOPOROSIS SCREENING] Future Scheduled MEDICARE AWV [facility] Test (Initial) [code = of Medicin e MEDICARE AWV (Initial)] Future Scheduled FLU VACCINE > 6 [facility] C ollege Test MONTHS [code = FLU of Medici ne VACCINE > 6 MONTHS] Future Scheduled BMI FOLLOW UP PLAN [employer] Test [code = BMI FOLLOW of Medici ne UP PLAN] Future Scheduled COLON CANCER [facility] Janett [employer]ge Test SCREENING: of Medicine COLONOSCOPY [code = COLON CANCER SCREENING: COLONOSCOPY] Future Scheduled MAMMOGRAM ANNUAL [facility] College Test [code = MAMMOGRAM of Medicin e ANNUAL] Future Scheduled MEDICARE AWV [code = [employer] Test MEDICARE AWV] of Medicine Future Scheduled TETANUS SHOT (ADULT) [employer] Test [code = TETANUS SHOT [...] FALL SCREEN] of Medicine Future Scheduled OSTEOPOROSIS [facility]ett [employer] Test SCREENING [code = of Medicin e OSTEOPOROSIS SCREENING] Future Scheduled PNEUMOVAX >=65 [facility] [employer] Test (PPSV23) [code = of Medicine PNEUMOVAX >=65 (PPSV23)] Future Scheduled PREVNAR >= 65 [facility] Col lege Test (PCV13) [code = of Medicine PREVNAR >= 65 (PCV13)] Future Scheduled FLU VACCINE > 6 [facility] [employer]lege Test MONTHS [code = FLU of Medici ne VACCINE > 6 MONTHS] Future Scheduled COLON CANCER [facility] Janett [employer]ge Test SCREENING: of Medicine COLONOSCOPY [code = COLON CANCER SCREENING: COLONOSCOPY] Future Scheduled MAMMOGRAM ANNUAL [facility] College Test [code = MAMMOGRAM of Medicin e ANNUAL] Future Scheduled TETANUS SHOT (ADULT) [employer] Test [code = TETANUS SHOT of Medi cine (ADULT)] Future Scheduled Diabetic foot [facility] [employer] Test examination of Medicine (regime/therapy) [code = 467864632] Future Scheduled ANNUAL DIABETIC [facility] C ollege Test RETINOPATHY of Medicine SCREENING [...] e OSTEOPOROSIS SCREENING] Future Scheduled PNEUMOVAX >=65 [facility] [employer] Test (PPSV23) [code = of Medicine PNEUMOVAX >=65 (PPSV23)] Future Scheduled PREVNAR >= 65 [facility] Col [facility]ge Test (PCV13) [code = of Medicine PREVNAR >= 65 (PCV13)] Future Scheduled MEDICARE AWV [facility] Janett [employer] Test (Initial) [code = of Medicin e MEDICARE AWV (Initial)] Future Scheduled FLU VACCINE > 6 [facility] C ollege Test MONTHS [code = FLU of Medici ne VACCINE > 6 MONTHS] Future Scheduled COLON CANCER [facility] Janett [employer]ge Test SCREENING: of Medicine COLONOSCOPY [code = COLON CANCER SCREENING: COLONOSCOPY] Future Scheduled MAMMOGRAM ANNUAL [facility] Test [code = MAMMOGRAM of Medicin e ANNUAL] Future Scheduled TETANUS SHOT (ADULT) [facility] College Test [code = TETANUS SHOT of Medi cine (ADULT)] Future Scheduled Diabetic foot [facility] Col [employer]ge Test examination of Medicine (regime/therapy) [code = [id number]] Future Scheduled ANNUAL DIABETIC [facility] [employer] Test RETINOPATHY of Medicine SCREENING [code = ANNUAL DIABETIC RETINOPATHY SCREENING] Future Scheduled US ARTERIAL LEG LEFT 1 Occurrences [employer] Test [code = 75121] starting of Medicine 02/03/2020 until 09/02/2020 Future Scheduled US ARTERIAL LEG LEFT 1 Occurrences [employer] Test [code = 20834] starting of Medicine 11/25/2019 until 06/24/2020 Future Scheduled US ARTERIAL LEG LEFT 1 Occurrences [employer] Test [code = 70950] starting of Medicine 05/27/2019 until 12/27/2019 Encounters Start End Encounter Admission Attending Care Care Encounter Source Date/Time Date/Time Type Type Clinicians Facility Department ID 2020-11-25 Outpatient MIO DOAN Surgery [id number] [facility] 17:23:10 IAN 2021-03-01 2021-03-01 Outpatient [facility] [id number] [facility] 12:23:45 15:02:33 Colleg e of Medicin e 2021-03-01 2021-03-01 Office KWAME Doan 1.2.840.114 [id number] [facility] 14:15:00 15:02:27 Visit Ian AMBULATOR 350.1.13.21 College Y 0.2.7.2.686 of [id number] [facility] 825 e 2020-02-03 2020-02-03 Office KWAME Doan 1.2.840.114 [id number] 14:42:26 17:03:39 Visit Jayer AMBULATOR 350.1.13.21 Y 0.2.7.2.686 [id number] 2020-02-03 2020-02-03 Office KWAME Doan 1.2.840.[id number] [place] [address] 14:42:26 17:03:39 Visit Jayer AMBULATOR 350.1.13.21 College Y 0.2.7.2.686 of [id number] [facility] 825 e 2020-01-15 2020-01-15 Outpatient [facility] [id number] [facility] 00:00:00 00:00:00 2019-11-25 2019-11-25 Office KWAME Doan 1.2.840.114 [id number] 09:56:31 16:38:39 Visit Jayer AMBULATOR 350.1.13.21 Y 0.2.7.2.686 [id number] [facility] 2019-11-25 2019-11-25 Office KWAME Daon 1.2.840.[id number] [place] [address] 09:56:31 16:38:39 Visit Jayer AMBULATOR 350.1.13.21 College Y 0.2.7.2.686 of [id number] [facility] 825 e 2019-08-26 2019-08-26 Office KWAME Doan 1.2.840.114 [id number] 09:32:20 11:46:44 Visit Jayer AMBULATOR 350.1.13.21 Y 0.2.7.2.686 [id number] [facility] 2019-08-26 2019-08-26 Office KWAME Doan 1.2.840.[id number] [place] [address] 09:32:20 11:46:44 Visit Jayer AMBULATOR 350.1.13.21 College Y 0.2.7.2.686 of [id number] [facility] 825 e 2019-05-27 2019-05-27 Office KWAME Doan 1.2.840.114 [id number] 09:13:18 12:39:17 Visit Jayer AMBULATOR 350.1.13.21 Y 0.2.7.2.686 [id number] 825 2019-05-27 2019-05-27 Office KWAME Doan 1.2.840.114 [id number] 26 [facility] 09:13:18 12:39:17 Visit Jayer AMBULATOR 350.1.13.21 College Y 0.2.7.2.686 of [id number] [facility] ed 825 e 2019-03-18 2019-03-18 Office KWAME Doan 1.2.840.114 [id number] 08:40:49 09:39:44 Visit Jayer AMBULATOR 350.1.13.21 Y 0.2.7.2.686 [id number] 825 2019-03-18 2019-03-18 Office KWAME Doan 1.2.840.[id number] [place] [address] 08:40:49 09:39:44 Visit Jayer AMBULATOR 350.1.13.21 College Y 0.2.7.2.686 of [id number] [facility] ed 825 e 2019-03-04 2019-03-04 Office DoanKWAME 1.2.840.114 [id number] 09:20:10 11:54:55 Visit Jayer AMBULATOR 350.1.13.21 Y 0.2.7.2.686 [id number] 820 2019-03-04 2019-03-04 Office DoanKWAME 1.2.840.[id number] [place] [address] 09:20:10 11:54:55 Visit Jayer AMBULATOR 350.1.13.21 College Y 0.2.7.2.686 of [id number] [facility] ed 820 e 2018-11-17 2018-11-17 Office Michael Mancia 1.2.840.114 [id number] 15:58:42 16:43:42 Visit AMBULATOR 350.1.13.21 Y 0.2.7.2.686 [id number] 2018-11-17 2018-11-17 Office Michael Mancia 1.2.840.[id number] [place] [address] 15:58:42 16:43:42 Visit AMBULATOR 350.1.13.21 College Y 0.2.7.2.686 [id number] [facility] 300 e Results Test Description Test Time Test Comments Results Result Comments Source POCT-GLUCOSE METER 2020-01-18 09:24:00 Test Item Value Reference Range Interpretation Comme nts POC-GLUCOSE METER (BEAKER) 145 mg/dL 70-110 H : TESTED AT [facility] [address] (test code = 1538) BRIAN Paul [address]: Bottle Hop/Techni charo ID = [id number] for MARILU MIRANDA SARS-COV2/RT-PCR ([facility])2020-01-15 14:45:00 Test Item Value Reference Range Interpretation Comments SARS-COV2/RT-PCR (test Negative Not Detected, Negative, code = 9376142) See external report for linked test SARS-COV-2 PERFORMING LAB [facility] ROSALBA (test code = 7964959) Negative result for this test determines that [...] 564(g) of the Act.Fact Sheet for Healthcare Providers:https://www.[employer]/sites/default/files/product/documents/Fact_Shee x_FV_Ydhodfjek_Lrsg_DHGN-VpC-3.pdfFact Sheet for Healthcare Patients:https://www.[employer]/sites/default/files/product/ documents/Osjp_Mcdkk_Qlfwzwdq_Dszo_GANN-LvT-4.pdfPerforming Laboratory:[facility], [place] [address]MBZO-OWVSOBO METER 2019-01-16 11:39:00 Test Item Value Reference Range Interpretation Comments POC-GLUCOSE METER 100 mg/dL 70-110 : TESTED A T [facility] [address] (BEAKER) (test code = JOSE G James [facility], 1538) 840[address]: Bottle Hop/Techni charo ID = [id number] for MADDIE RG BOZENA CBC W/PLT COUNT & AUTO [id number] 10:30:00 Test Item Value Reference Range Interpretation [...] 486) HYPERSEGMENTATION Present (CELLAVISION)(BEAKER) (test code = 8735) HYPOCHROMIA (BEAKER) (test code = 1+ few 963) ANISOCYTOSIS (BEAKER) (test code = 1+ few 961) MACROCYTES (BEAKER) (test code = 1+ few 964) ARTIFACT (CELLAVISION)(BEAKER) Present (test code = 3432) PLATELET CONCENTRATION Adequate (CELLAVISION)(BEAKER) (test code = 3438) Received comment: User comments: Slide comments:POCT-GLUCOSE [id number] 08:27:00 Test Item Value Reference Range Interpretation Comments POC-GLUCOSE METER 90 mg/dL 70-110 : TESTED A T [facility] 6720 (BEAKER) (test code = [facility] [employer], 1538) 91143: Bottle Hop/Techni charo ID = [id number] for BOZENA GOLDBERG BASIC METABOLIC [id number] 05:15:00 Test Item Value Reference Range Interpretation [...] NOT APPLICABLE FOR DIALYSIS PATIEN TS. POCT-GLUCOSE [id number] 20:27:00 Test Item Value Reference Range Interpretation Comments POC-GLUCOSE METER 119 mg/dL 70-110 H : TESTED A T [facility] 6720 (BEAKER) (test code = [facility] [place], 1538) 413[address]: Bottle Hop/Techni charo ID = [id number] for Jeffery Boone POCT-GLUCOSE [id number] 17:11:00 Test Item Value Reference Range Interpretation Comments POC-GLUCOSE METER 122 mg/dL 70-110 H : TESTED A T [facility] 6720 (BEAKER) (test code = [facility], 1538) 52609: Bottle Hop/Techni charo ID = [id number] for Ec at, Cecella POCT-GLUCOSE [id number] 13:01:00 Test Item Value Reference Range Interpretation Comments POC-GLUCOSE METER 113 mg/dL 70-110 H : TESTED A T [facility] 6720 (BEAKER) (test code = [facility], [facility]) 42895: Bottle Hop/Techni charo ID = [id number] for ANA PALACIO POCT-GLUCOSE [id number] 08:45:00 Test Item Value Reference Range Interpretation Comments POC-GLUCOSE METER 98 mg/dL 70-110 : TESTED A T [facility] 6720 (BEAKER) (test code = [facility], 153) 64438: Bottle Hop/Techni charo ID = [id number] for ANA GAGNON POCT-GLUCOSE [id number] 21:07:00 Test Item Value Reference Range Interpretation Comments POC-GLUCOSE METER 84 mg/dL 70-110 : TESTED A T [facility] 6720 (BEAKER) (test code = [facility], [facility]) 89114: Bottle Hop/Techni charo ID = [id number] for Cassius Pk POCT-GLUCOSE [id number] 16:47:00 Test Item Value Reference Range Interpretation Comments POC-GLUCOSE METER 108 mg/dL 70-110 : TESTED A T [facility] 6720 (BEAKER) (test code = [facility], [facility]) 42980: Bottle Hop/Techni charo ID = [id number], [place]a POCT-GLUCOSE [id number] 15:12:00 Test Item Value Reference Range Interpretation Comments POC-GLUCOSE METER 118 mg/dL 70-110 H : TESTED A T [facility] 6720 (BEAKER) (test code = [facility], 153) 25365: Bottle Hop/Techni charo ID = [id number] for DA RAJ FONTENOTENZO POCT-GLUCOSE [id number] 15:04:00 Test Item Value Reference Range Interpretation Comments POC-GLUCOSE METER 127 mg/dL 70-110 H : TESTED A T [facility] 6720 (BEAKER) (test code = [facility], 1538) 26809: Bottle Hop/Techni charo ID = [id number] for LAXMI MORTNOER, HIWITHA POCT-GLUCOSE [id number] 14:34:00 Test Item Value Reference Range Interpretation Comments POC-GLUCOSE METER 89 mg/dL 70-110 : TESTED A T [facility] 6720 (BEAKER) (test code = [facility], 1538) 47917: Bottle Hop/Techni charo ID = [id number] for BATEMAN ER, HIWITHA POCT-GLUCOSE [id number] 13:53:00 Test Item Value Reference Range Interpretation Comments POC-GLUCOSE METER 137 mg/dL 70-110 H : TESTED A T [facility] 6720 (BEAKER) (test code = [facility], 153) 43783: Bottle Hop/Techni charo ID = [id number], [place] POCT-GLUCOSE [id number] 12:44:00 Test Item Value Reference Range Interpretation Comments POC-GLUCOSE METER 125 mg/dL 70-110 H : TESTED A T [facility] 6720 (BEAKER) (test code = [facility], 153) 19866: Bottle Hop/Techni charo ID = [id number] for OC CRUZ POCT-GLUCOSE [id number] 08:33:00 Test Item Value Reference Range Interpretation Comments POC-GLUCOSE METER 112 mg/dL 70-110 H : TESTED A T [facility] 6720 (BEAKER) (test code = [facility], 153) 57886: Bottle Hop/Techni charo ID = [id number] for ANA PALACIO POCT-GLUCOSE [id number] 07:56:00 Test Item Value Reference Range Interpretation Comments POC-GLUCOSE METER 96 mg/dL 70-110 : TESTED A T [facility] 6720 (BEAKER) (test code = [facility], 153) 42378: Bottle Hop/Techni charo ID = [id number] for Compa ortiz Danica BASIC METABOLIC [id number] 07:07:00 Test Item Value Reference Range Interpretation [...] PATIEN TS. CBC W/PLT COUNT & AUTO [id number] 06:52:00 Test Item Value Reference Range Interpretation [...] PERCENT (BEAKER) (test code = 2801) POCT-GLUCOSE [id number] 21:36:00 Test Item Value Reference Range Interpretation Comments POC-GLUCOSE METER 143 mg/dL 70-110 H : TESTED A T [facility] 6720 (BEAKER) (test code = [facility], 1538) 57133: Bottle Hop/Techni charo ID = [id number] for DA VIS, RODGER POCT-GLUCOSE [id number] 19:20:00 Test Item Value Reference Range Interpretation Comments POC-GLUCOSE METER 117 mg/dL 70-110 H : TESTED A T [facility] 6720 (BEAKER) (test code = [facility], 1538) 70572: Bottle Hop/Techni charo ID = [id number] for DA VIS, RODGER POCT-GLUCOSE [id number] 09:30:00 Test Item Value Reference Range Interpretation Comments POC-GLUCOSE METER 100 mg/dL 70-110 : TESTED A T [facility] 6720 (BEAKER) (test code = [facility], 1538) 23843: Bottle Hop/Techni charo ID = [id number] for ANA PALACIO BASIC METABOLIC [id number] 05:18:00 Test Item Value Reference Range Interpretation [...] PATIEN TS. CBC W/PLT COUNT & AUTO [id number] 04:37:00 Test Item Value Reference Range Interpretation [...] PERCENT (BEAKER) (test code = 2801) POCT-GLUCOSE [id number] 20:59:00 Test Item Value Reference Range Interpretation Comments POC-GLUCOSE METER 95 mg/dL 70-110 : TESTED A T [facility] 6720 (BEAKER) (test code = [facility], 153) 61562: Bottle Hop/Techni charo ID = [id number] for RODGER SPARKS POCT-GLUCOSE [id number] 17:08:00 Test Item Value Reference Range Interpretation Comments POC-GLUCOSE METER 90 mg/dL 70-110 : TESTED A T [facility] 6720 (BEAKER) (test code = [facility], 1538) 20414: Bottle Hop/Techni cahro ID = [id number] for BELLE CHAPA POCT-GLUCOSE [id number] 12:10:00 Test Item Value Reference Range Interpretation Comments POC-GLUCOSE METER 118 mg/dL 70-110 H : TESTED A T [facility] 6720 (BEAKER) (test code = [facility], 1538) 29217: Bottle Hop/Techni charo ID = [id number] for BELLE GRIFFITHS U/S, RENAL, [id number] 10:37:00Reason for exam:->ckdFINAL REPORT TECHNIQUE: Grayscale ultrasound [...] MDReport Verified Date/Time: 01/11/2019 10:37:05 Reading Location: [address] Body Reading Room POCT-GLUCOSE [id number] 09:22:00 Test Item Value Reference Range Interpretation Comments POC-GLUCOSE METER 75 mg/dL 70-110 : TESTED A T [facility] 6720 (BEAKER) (test code = [facility] [place], 1538) 49933: Bottle Hop/Techni charo ID = [id number] for CICI DRISCOLL [id number] 04:57:00 Test Item Value Reference Range Interpretation Comments PHOSPHORUS (BEAKER) (test code = 2.8 mg/dL 2.3-4.7 604) [id number] 04:57:00 Test Item Value Reference Range Interpretation Comments MAGNESIUM (BEAKER) (test code = 1.9 mg/dL 1.6-2.6 627) BASIC METABOLIC [id number] 04:57:00 Test Item Value Reference Range Interpretation [...] PATIEN TS. CBC W/PLT COUNT & AUTO [id number] 04:32:00 Test Item Value Reference Range Interpretation [...] PERCENT (BEAKER) (test code = 2801) POCT-GLUCOSE [id number] 22:26:00 Test Item Value Reference Range Interpretation Comments POC-GLUCOSE METER 95 mg/dL 70-110 : TESTED A T [facility] 6720 (BEAKER) (test code = [facility], 1538) 05382: Bottle Hop/Techni charo ID = [id number] for Beena Reed POCT-GLUCOSE [id number] 17:04:00 Test Item Value Reference Range Interpretation Comments POC-GLUCOSE METER 98 mg/dL 70-110 : TESTED A T [facility] 6720 (BEAKER) (test code = [facility], 1538) 11965: Bottle Hop/Techni charo ID = [id number] for BELLE CHAPA PTH, [id number] 16:02:00 Test Item Value Reference Range Interpretation Comments PARATHYROID HORMONE INTACT 200.6 pg/mL 8.5-72.5 H (BEAKER) (test code = 577) CBC W/PLT COUNT & AUTO [id number] 15:09:00 Test Item Value Reference Range Interpretation [...] PERCENT (BEAKER) (test code = 2801) POCT-GLUCOSE [id number] 11:53:00 Test Item Value Reference Range Interpretation Comments POC-GLUCOSE METER 132 mg/dL 70-110 H : TESTED A T [facility] 6720 (BEAKER) (test code = [facility] [place], 1538) 19849: Bottle Hop/Techni charo ID = [id number] for Cici Isaacs POCT-GLUCOSE [id number] 09:42:00 Test Item Value Reference Range Interpretation Comments POC-GLUCOSE METER 112 mg/dL 70-110 H : TESTED A T [facility] 6720 (BEAKER) (test code = [facility] [place], 1538) 18702: Bottle Hop/Techni charo ID = [id number] for Cici Isaacs URIC [id number] 09:14:00 Test Item Value Reference Range Interpretation Comments URIC ACID (BEAKER) (test code = 7.3 mg/dL 2.6-7.2 H 773) [id number] 06:14:00 Test Item Value Reference Range Interpretation Comments PHOSPHORUS (BEAKER) (test code = 2.8 mg/dL 2.3-4.7 604) [id number] 06:14:00 Test Item Value Reference Range Interpretation Comments MAGNESIUM (BEAKER) (test code = 1.9 mg/dL 1.6-2.6 627) BASIC METABOLIC [id number] 06:14:00 Test Item Value Reference Range Interpretation [...] NOT APPLICABLE FOR DIALYSIS PATIEN TS. POCT-GLUCOSE [id number] 21:33:00 Test Item Value Reference Range Interpretation Comments POC-GLUCOSE METER 113 mg/dL 70-110 H : TESTED A T [facility] 6720 (BEAKER) (test code = [facility], 1538) 93095: Bottle Hop/Techni charo ID = [id number] for RODGER JONES POCT-GLUCOSE [id number] 17:16:00 Test Item Value Reference Range Interpretation Comments POC-GLUCOSE METER 113 mg/dL 70-110 H : TESTED A T [facility] 6720 (BEAKER) (test code = [facility], 1538) 23312: Bottle Hop/Techni charo ID = [id number] for RIDDHI AGUILAR POCT-GLUCOSE [id number] 12:17:00 Test Item Value Reference Range Interpretation Comments POC-GLUCOSE METER 166 mg/dL 70-110 H : TESTED A T [facility] 6720 (BEAKER) (test code = [facility], 1538) 08964: Bottle Hop/Techni charo ID = [id number] for CHINTAN MCCLELLAND POCT-GLUCOSE [id number] 07:51:00 Test Item Value Reference Range Interpretation Comments POC-GLUCOSE METER 143 mg/dL 70-110 H : TESTED A T [facility] 6720 (BEAKER) (test code = [facility], 1538) 52589: Bottle Hop/Techni charo ID = [id number] for Pe meaghan, Neena [id number] 06:28:00 Test Item Value Reference Range Interpretation Comments MAGNESIUM (BEAKER) 1.8 mg/dL 1.6-2.6 Specimen slightly (test code = 627) hemolyzed [id number] 06:28:00 Test Item Value Reference Range Interpretation Comments PHOSPHORUS (BEAKER) 2.5 mg/dL 2.3-4.7 Specimen slightly (test code = 604) hemolyzed BASIC METABOLIC [id number] 06:28:00 Test Item Value Reference Range Interpretation [...] PATIEN TS. CBC W/PLT COUNT & AUTO [id number] 04:20:00 Test Item Value Reference Range Interpretation [...] 0-1 PERCENT (BEAKER) (test code = 2801) [id number] 17:40:00 Test Item Value Reference Range Interpretation Comments PHOSPHORUS (BEAKER) (test code = 3.3 mg/dL 2.3-4.7 604) [id number] 17:40:00 Test Item Value Reference Range Interpretation Comments MAGNESIUM (BEAKER) (test code = 1.8 mg/dL 1.6-2.6 627) BASIC METABOLIC [id number] 17:40:00 Test Item Value Reference Range Interpretation [...] S NOT APPLICABLE FOR DIALYSIS PATIEN TS. [id number] 17:03:00 Test Item Value Reference Range Interpretation [...] mechanical heart valves.CBC W/PLT COUNT & AUTO [id number] 16:56:00 Test Item Value Reference Range Interpretation [...] PERCENT (BEAKER) (test code = 2801) POCT-GLUCOSE [id number] 16:55:00 Test Item Value Reference Range Interpretation Comments POC-GLUCOSE METER 200 mg/dL 70-110 H : TESTED A T [place] [address] (BEAKER) (test code = [facility], 1538) 22728: Bottle Hop/Techni charo ID = [id number] for JOSE DENNEY [id number] 13:51:00 Test Item Value Reference Range Interpretation Comments ACTIVATED CLOTTING TIME 274 sec Refe rence Range: (BEAKER) (test code = 74-137 seconds, 441) Baseline/TESTED AT [address] [address] [id number] 13:51:00 Test Item Value Reference Range Interpretation Comments ACTIVATED CLOTTING TIME 323 sec Refe rence Range: (BEAKER) (test code = 74-137 seconds, 441) Baseline/TESTED AT [address] 7703 0 CBC W/PLT COUNT & AUTO [id number] 07:44:00 Test Item Value Reference Range Interpretation [...] PERCENT (BEAKER) (test code = 2801) POCT-GLUCOSE [id number] 06:13:00 Test Item Value Reference Range Interpretation Comments POC-GLUCOSE METER 123 mg/dL 70-110 H : TESTED A T [facility] 6720 (BEAKER) (test code [place], = 1538) 35875: Bottle Hop/Techni charo ID = [id number] for JORD AN, LACRYSTAL PLATELET [id number] 11:27:00 Test Item Value Reference Range Interpretation Comments PLATELET COUNT (BEAKER) (test 112 K/CU MM 150-450 L code = 756) [id number] 11:07:00 Test Item Value Reference Range Interpretation Comments SODIUM (BEAKER) (test code = 381) 138 meq/L 136-145 POTASSIUM (BEAKER) (test code = 4.7 meq/L 3.5-5.1 379) CHLORIDE (BEAKER) (test code = 382) 107 meq/L 98-107 CO2 (BEAKER) (test code = 355) 26 meq/L 22-29 [id number] 11:07:00 Test Item Value Reference Range Interpretation Comments GLUCOSE RANDOM (BEAKER) (test code 134 mg/dL 70-105 H = 652) BUN AND [id number] 11:07:00 Test Item Value Reference Range Interpretation [...] S NOT APPLICABLE FOR DIALYSIS PATIEN TS. [id number] 10:54:00 Test Item Value Reference Range Interpretation Comments HEMOGLOBIN (BEAKER) (test code = 13.1 GM/DL 11.2-15.7 410) PET, CARDIAC PERFUSION MULTIPLE STUDIES, REST AND [id number] 16:17:00 Reason for Exam:->i73.9, e11.9, i25.10FINAL REPORT PROCEDURE: MYOCARDIAL PERFUSION PET IMAGING (Rest/Stress)CPT CODE: 08594 INDICATION: Known CAD CARDIOVASCULAR PROFILE:CAD History: Known [...] MDReport Verified Date/Time: 11/26/2018 16:17:24 Reading Location: [address] Reading Room ELECTROCARDIOGRAM [id number] 22:58:11Result approved by Michael Mancia MD on 11/17/18[facility] [id number] 11:28:00 Test Item Value Reference Range Interpretation [...] PATIEN TS. CBC W/PLT COUNT & AUTO [id number] 11:19:00 Test Item Value Reference Range Interpretation [...] (BEAKER) (test code = 2801) BASIC METABOLIC [id number] 14:13:00 Test Item Value Reference Range Interpretation [...] PATIEN TS. CBC W/PLT COUNT & AUTO [id number] 13:54:00 Test Item Value Reference Range Interpretation [...]
== END 2021-08-26 13:10 | disposition home or self-care (01) ==
LOC: ER 14:13 → ERHOLD 20:19 → 2ND 21:24
PROVIDERS: ADMIT Internal Medicine Sleep Medicine; ATTEND Internal Medicine Sleep Medicine
DX: R55 Syncope and collapse (principal); I13.0 Hypertensive heart and chronic kidney disease with heart failure and stage 1 through stage 4 chronic kidney disease, or unspecified chronic kidney disease; I50.22 Chronic systolic (congestive) heart failure; N18.30 Chronic kidney disease, stage 3 unspecified; E11.22 Type 2 diabetes mellitus with diabetic chronic kidney disease; E78.5 Hyperlipidemia, unspecified; R00.1 Bradycardia, unspecified; D69.6 Thrombocytopenia, unspecified; R61 Generalized hyperhidrosis; F03.90 Unspecified dementia, unspecified severity, without behavioral disturbance, psychotic disturbance, mood disturbance, and anxiety; E88.81 Metabolic syndrome and other insulin resistance; M10.9 Gout, unspecified; Z95.810 Presence of automatic (implantable) cardiac defibrillator; Z79.4 Long term (current) use of insulin; Z79.82 Long term (current) use of aspirin; Z79.899 Other long term (current) drug therapy; Z88.0 Allergy status to penicillin; Z90.710 Acquired absence of both cervix and uterus; Z20.822 Contact with and (suspected) exposure to COVID-19; Z82.49 Family history of ischemic heart disease and other diseases of the circulatory system
CPT/HCPCS: 93005; 85025 ×2; 80048; 36415; 83735; 85610; 82947; 84484 ×3; 80053; 83880; 70450; 71045; 96372; 99285; U0003; J1644 ×2; G0378 ×3

== ENCOUNTER 2021-09-26 06:02 | Emergency (ER) | payer OTHER ==
--- OUTSIDE RECORDS SUMMARY | 2021-09-26 06:08 | XMS REPORT | Continuity of Care Document ---
:1945 Author Organization [facility] t Address [address] [place] [address] Care Team Providers Name Role Phone VIC FORTUNE Primary Care Physician Unavailable IAN DOAN Attending Clinician Unavailable Franki VILLAGOMEZ, Ian Attending Clinician Michael Mancia MD Attending Clinician IAN DOAN Admitting Clinician Unavailable Payers Payer Name Policy Type Policy Number Effective Date Expiration Date S ource [employer] PPO SELECT [id number] 2018 ASO 00:00:00 [employer] MEDICARE [id number] 2018 ADV 00:00:00 ERS MEDICARE [id number] [facility] [id number] ADVANTAGE PPO Problems Condition Condition Condition Status Onset Resolution Last Treating Co mments Source Name Details Category Date Date Treatment Clinician Date Increased Increased Disease Active [facility] BMI (body BMI (body 4-10 [facility]ett [facility] mass mass 00:00: of index) index) 00 Medicin e Status Status Disease Active [facility] post post 1-28 College femorotibi femorotibi 00:00: of al bypass al bypass 00 Medi ed e PAD PAD Disease Active Overview: [facility] (periphera (periphera 5-15 [employer] l artery l artery 00:00: g of this of disease) disease) 00 note Medici n (HCCode) (HCCode) might be e different from the original. LEFT sp SFA stent occluded, occluded PT and Peroneal , patent AT PAD PAD Disease Active Overview: [facility] (periphera (periphera 5-15 LEFT sp C ollege l artery l artery 00:00: SFA stent of disease) disease) 00 occluded, Med icin (HCCode) (HCCode) occluded e PT and Peroneal , patent AT Essential Essential Disease Active [facility] hypertensi hypertensi 5-15 Co llege on on 00:00: 00 Medicin e Pacemaker Pacemaker Disease Active Overview: [facility] 02-18 [facility] 00:00: g of this note Medicin might be e different from the original. PPM MDT [id number] Dr Gonzalez CAD CAD Disease Active Overview: [facility] (coronary (coronary 02-18 [facility] C ollege artery artery 00:00: g of this of disease) disease) 00 note Medici n might be e different from the original. Non obstructi ve as per cath 2009 Cardiomyop Cardiomyop Disease Active Overview : [facility] athy, athy, 02-18 [facility] ischemic ischemic 00:00: g of this note Medicin might be e different from the original. reported EF in the range 15% as of 2014 by TTE Hyperlipid Hyperlipid Disease Active [facility] aimee yu [facility] Medicin e Type 2 Type 2 Disease Active [facility] diabetes diabetes Colleg e mellitus mellitus of without without Medicin complicati complicati e on on (HCCode) (HCCode) Hypertensi Hypertensi Disease Active [facility] on on [facility] Medicin e Allergies, Adverse Reactions, Alerts Allergy Allergy Status Severity Reaction(s) Onset Inactive Treating Comm ents Source Name Type Date Date Clinician PENICILL Allergy Active Hives [facility] 05-28 00:00: 00 Social History Social Habit Start Date Stop Date Quantity Comments Source Exposure to Not sure [facility] Sid patel SARS-CoV-2 of Medicine (event) Alcohol intake 2021-03-03 2021-03-03 Ex-drinker [facility] Col lege 00:00:00 00:00:00 (finding) of Medicine Tobacco use and 2018-05-28 2018-05-28 Smokeless tobacco [facility] exposure 00:00:00 00:00:00 non-user of Medicine Sex Ass[birth year] [facility]lege 00:00:00 00:00:00 of Medicine Smoking Status Start Date Stop Date Source Never smoked tobacco [facility]ett [facility] of Medicine Medications Ordered Filled Start Stop Current Ordering Indication Dosage Frequency Signature Comments Components Source Medication Medication Date Date Medication? Clinician (SIG) Name Name CINTHIA Yes Take by [facility] ASPIRIN OR 1-12 mouth [place] 14:46: daily. of 23 Medicin e VITAMIN E Yes Take by [facility] OR 1-12 mouth. College 14:46: of 23 Medicin e Ascorbic Yes Take by [facility] Acid 1-12 mouth. College (VITAMIN C 14:46: of OR) Medicin e furosemide Yes 40mg Take 40 mg [facility] (LASIX) 40 -12 by mouth. [facility]ett [facility] MG tablet 14:46: [...] memantine 2020-02 Yes 5mg Take 5 mg Antoine nita (NAMENDA) 5 -06 by mouth [facility] MG tablet 00:00: daily. of 00 Medicin e BABY 2019-02 Yes Take by [facility] ASPIRIN OR 2-16 mouth [place] 21:49: daily. of 25 Medicin e VITAMIN E 2019-02 Yes Take by [facility]in[facility] OR 2-16 mouth. College 21:49: of 25 Medicin e Ascorbic 2019-02 Yes Take by [facility] Acid 2-16 mouth. [place] (VITAMIN C 21:49: of OR) Medicin e clopidogrel 2019-02 Yes 75mg Take 1 [facility] (PLAVIX) 75 2-16 Tablet by Col lege MG Tablet 00:00: mouth of 00 daily. Medicin e gabapentin 2019-02 Yes 300mg Take 1 [facility] (NEURONTIN) 2-16 capsule by Co llege 300 MG 00:00: mouth 3 of capsule 00 times Medicin daily. e clopidogrel 2020-1 2022- No 75mg Take 1 [facility] (PLAVIX) 75 2-16 - Tablet by Co llege MG Tablet 00:00: 00:00 mouth of 00 :00 daily. Medicin e gabapentin 2019-02- No 300mg Take 1 [facility] (NEURONTIN) 2-16 -12 capsule by C ollege 300 MG 00:00: 00:00 mouth 3 of capsule 00 :00 times Medicin daily. e gabapentin 2019-02- No TAKE 1 [facility] (NEURONTIN) 2-14 -16 CAPSULE BY C ollege 300 MG 00:00: [...] Pain. clopidogrel 2019-02- No 75mg Take 1 [facility] (PLAVIX) 75 2-08 29-16 Tablet by Co llege MG Tablet 00:00: 00:00 mouth of 00 :00 daily. Medicin e tramadol 2019-02 Yes 50mg Take 50 mg Antoine nita (ULTRAM) 50 1-14 by mouth. Col lege MG tablet 00:00: of 00 Medicin e BABY 2019-02 Yes Take by [facility] ASPIRIN OR 0-07 mouth College 18:07: daily. of 00 Medicin e VITAMIN E 2019-02 Yes Take by [facility] OR 0-07 mouth. College 18:07: of 00 Medicin e Ascorbic 2019-1 Yes Take by [facility] Acid 0-07 mouth. College (VITAMIN C 18:07: of OR) 00 Medicin e VITAMIN E 2020-0 Yes Take by [facility] OR 7-08 mouth. College 16:07: of 30 Medicin e Ascorbic 2020-0 Yes Take by [facility] Acid 7-08 mouth. College (VITAMIN C 16:07: of OR) 30 Medicin e BABY 2020-0 Yes Take by [facility] ASPIRIN OR 7-08 mouth [place] 16:06: daily. of 52 Medicin e clopidogrel 2020-0 2020- No 75mg Take 1 Tab [facility] (PLAVIX) 75 7-08 10-07 by mouth Col lege MG Tablet 00:00: 04:59 daily for of 00 :00 90 days. Medicin e clopidogrel 2020-0 2020- No 75mg Take 1 Tab [facility] (PLAVIX) 75 6-05 07-08 by mouth Col [...] e DAILY Clopidogrel 2020-0 Yes Take by Antoine nita Bisulfate 4-08 mouth. [place] (PLAVIX OR) 16:06: of 03 Medicin e BABY 2020-0 Yes Take by [facility] ASPIRIN OR 4-08 mouth [place] 16:06: daily. of 03 Medicin e Clopidogrel 2020-0 Yes Take by Antoine nita Bisulfate 1-15 mouth. [place] (PLAVIX OR) 16:26: of 10 Medicin e BABY 2020-0 Yes Take by [facility] ASPIRIN OR 1-15 mouth [place] 16:26: daily. of 10 Medicin e Clopidogrel 2020-0 Yes Take by Antoine nita Bisulfate 1-15 mouth. [place] (PLAVIX OR) 16:26: of 10 Medicin e BABY 2020-0 Yes Take by [facility] ASPIRIN OR 1-15 mouth [place] 16:26: daily. of 10 Medicin e gabapentin [...] of capsule 00 daily. Medicin e acetaminoph 2018-02 2020- No 650mg Take 650 [facility] en 325 mg 1-29 11-24 mg by College tablet 00:00: 05:59 mouth. of 00 :00 Medicin e acetaminoph 2018-02 2020- No 650mg Take 650 [facility] en 325 mg 1-29 11-24 mg by College tablet 00:00: 05:59 mouth. of 00 :00 Medicin e acetaminoph 2018-02 2020- No 650mg Take 650 [facility] en 325 mg 1-29 11-24 mg by College tablet 00:00: 05:59 mouth. of 00 :00 Medicin e acetaminoph 2018-02 2020- No 650mg Take 650 [facility] en 325 mg 1-29 11-24 mg by College tablet 00:00: 05:59 mouth. of 00 :00 Medicin e acetaminoph 2018-02 2020- No 650mg Take 650 [facility] en 325 mg 1-29 11-24 mg by College tablet 00:00: 05:59 mouth. of 00 :00 Medicin e Clopidogrel 2018-0 Yes Take by Antoine nita Bisulfate 9-30 mouth. [place] (PLAVIX OR) 21:13: of 04 Medicin e BABY 2018-0 Yes Take by [facility] ASPIRIN OR 9-30 mouth [place] 21:13: daily. of 04 Medicin e acetaminoph 2018-0 Yes TK 1 T PO [facility] en-codeine 4-03 QD. [place] (TYLENOL 00:00: of #3) 300-30 00 Medicin MG per e tablet rosuvastati 2019-0 Yes Dash n (CRESTOR) 4-03 College 20 MG 00:00: of tablet 00 Medicin e acetaminoph 2018-0 Yes TK 1 T PO B [facility] en-codeine 4-03 QD. College (TYLENOL 00:00: of #3) 300-30 00 Medicin MG per e tablet acetaminoph 2019-0 Yes TK 1 T PO B [facility] en-codeine 4-03 QD. [place] (TYLENOL 00:00: of #3) 300-30 00 Medicin [...] MG per e tablet rosuvastati 2019-0 Yes [facility] n (CRESTOR) 4-03 College 20 MG 00:00: [...] MG per e tablet rosuvastati 2019-0 Yes [facility] n (CRESTOR) 4-03 College 20 MG 00:00: [...] memantine 2019-0 Yes TK 1 T PO Antoine nita (NAMENDA) 3-28 BID College 10 MG 00:00: of tablet 00 Medicin e memantine 2019-0 Yes TK 1 T PO [facility]ine nita (NAMENDA) 3-28 BID College 10 MG 00:00: of tablet 00 Medicin e memantine 2019-0 Yes TK 1 T PO [facility]ine nita (NAMENDA) 3-28 BID College 10 MG 00:00: of tablet 00 Medicin e memantine 2019-0 Yes TK 1 T PO [facility] n[facility] (NAMENDA) 3- BID College 10 MG 00:00: of tablet Medicin e memantine 2019-0 Yes TK 1 T PO [facility] nita (NAMENDA) 3 BID College 10 MG 00:00: of tablet 00 Medicin e memantine 2019-0 Yes 10mg 10 mg [facility] (NAMENDA) 3- daily. College 10 MG 00:00: of tablet Medicin e memantine 2019-0 Yes TK 1 T PO [facility]ine nita (NAMENDA) 3- BID College 10 MG 00:00: of tablet Medicin e memantine 2019-0 Yes TK 1 T PO [facility]ine nita (NAMENDA) 3- BID College 10 MG 00:00: of tablet Medicin e potassium 2019-0 Yes TK 1 T PO Antoine nita chloride SA 04-22 [facility] (K-DUR, 00:00: of KLOR-CON Medicin M20) 20 MEQ e tablet potassium 2019-0 Yes TK 1 T PO Antoine nita chloride SA 04-22 [facility] (K-DUR, 00:00: of KLOR-CON Medicin M20) 20 MEQ e tablet potassium 2019-0 Yes TK 1 T PO Antoine nita chloride SA 04-22 [facility] (K-DUR, 00:00: of KLOR-CON Medicin M20) 20 MEQ e tablet potassium 2019-0 Yes TK 1 T PO Antoine nita chloride SA 04-22 [facility] (K-DUR, 00:00: of KLOR-CON Medicin M20) 20 MEQ e tablet potassium Yes TK 1 T PO Antoine nita chloride 04-22 [facility] (K-DUR, 00:00: of KLOR-CON Medicin M20) 20 MEQ e tablet potassium Yes TK 1 T PO Antoine nita chloride 04-22 [facility] (KDUR, 00:00: of KLOR-CON Medicin M20) 20 MEQ e tablet potassium Yes TK 1 T PO Antoine nita chloride 04-22 [facility] (KDUR, 00:00: of KLOR-CON Medicin M20) 20 MEQ e tablet potassium 2021- No TK 1 T PO [facility] chloride 04-22 [facility] (K-DUR, 00:00: 00:00 of KLOR-CON 00 :00 Medicin [...] UNITS College injection 00:00: SUBCUTANEO of 00 TUSHAR D. Medicin e carvedilol 2019 Yes TK 1 T PO [facility] (COREG) 2-19 BID [facility] 6.25 MG 00:00: of tablet 00 Medicin e carvedilol Yes TK 1 T PO [facility] (COREG) 2-19 BID [facility] [employer] 6.25 MG 00:00: of tablet Medicin [...] of tablet 00 Medicin e amiodarone Yes 200mg 200 mg [facility] (PACERONE) 2-12 daily. College 200 MG 00:00: of tablet 00 Medicin e amiodarone 2018- Yes TK 1 T PO [facility] (PACERONE) 2-12 QD College 200 MG 00:00: of tablet 00 Medicin e amiodarone 2018- Yes TK 1 T PO [facility] (PACERONE) 2-12 QD College 200 MG 00:00: of tablet 00 Medicin e Vital Signs Vital Name Observation Time Observation Value Comments Source WEIGHT 2020-01-18 05:39:00 99.111 kg HEIGHT 2020-01-18 05:39:00 162.6 cm Heart rate 2021-03-01 20:43:00 65 /min [facility] of Medicine Body height 2021-03-01 20:43:00 152.4 cm [facility] C [facility] of Medicine Body weight 2021-03-01 20:43:00 97.523 kg [facility] ollege of Medicine BMI 2021-03-01 20:43:00 41.99 kg/m2 [facility] ollege of Medicine Systolic blood 2020-02-03 21:48:00 156 mm[Hg] [facility] of pressure Medicine Diastolic blood 2020-02-03 21:48:00 73 mm[Hg] [facility] of pressure Medicine Heart rate 2020-02-03 21:48:00 63 /min [facility] C [facility]lege of Medicine Body height 2020-02-03 21:48:00 152.4 cm [facility] C [facility] of Medicine Body weight 2020-02-03 21:48:00 97.523 kg [facility] C [facility] of Medicine BMI 2020-02-03 21:48:00 41.99 kg/m2 [facility] C [facility] of Medicine Systolic blood 2020-02-03 21:48:00 156 mm[Hg] [facility] of pressure Medicine Diastolic blood 2020-02-03 21:48:00 73 mm[Hg] [facility] of pressure Medicine Heart rate 2020-02-03 21:48:00 63 /min [facility] C [facility]lege of Medicine Body height 2020-02-03 21:48:00 152.4 cm [facility] C [facility] of Medicine Body weight 2020-02-03 21:48:00 97.523 kg [facility] C [facility] of Medicine BMI 2020-02-03 21:48:00 41.99 kg/m2 [facility] of [facility] WEIGHT 2020-01-18 05:39:00 99.111 kg HEIGHT 2020-01-18 05:39:00 162.6 cm WEIGHT 2020-01-15 08:13:00 100.245 kg HEIGHT 2020-01-15 08:13:00 162.6 cm WEIGHT 2020-01-15 08:13:00 100.245 kg HEIGHT 2020-01-15 08:13:00 162.6 cm Systolic blood 2019-11-25 18:06:00 150 mm[Hg] [facility] of pressure Medicine Diastolic blood 2019-11-25 18:06:00 84 mm[Hg] [facility] of pressure Medicine Heart rate 2019-11-25 18:06:00 67 /min [facility] of Medicine Body height 2019-11-25 18:06:00 162.6 cm [facility] of Medicine Body weight 2019-11-25 18:06:00 81.647 kg [facility] of Medicine BMI 2019-11-25 18:06:00 30.90 kg/m2 [facility] C [facility] of Medicine Systolic blood 2019-11-25 18:06:00 150 mm[Hg] [facility] of pressure Medicine Diastolic blood 2019-11-25 18:06:00 84 mm[Hg] [facility] of pressure Medicine Heart rate 2019-11-25 18:06:00 67 /min [facility] of Medicine Body height 2019-11-25 18:06:00 162.6 cm [facility] of Medicine Body weight 2019-11-25 18:06:00 81.647 kg [facility] of Medicine BMI 2019-11-25 18:06:00 30.90 kg/m2 [facility] of Medicine Systolic blood 2019-08-26 16:05:00 164 mm[Hg] [facility] of pressure Medicine Diastolic blood 2019-08-26 16:05:00 89 mm[Hg] [facility] of pressure Medicine Heart rate 2019-08-26 16:05:00 65 /min [facility] of Medicine Body height 2019-08-26 16:05:00 162.6 cm [facility] of Medicine Body weight 2019-08-26 16:05:00 81.647 kg [facility] of [facility] BMI 2019-08-26 16:05:00 30.90 kg/m2 [facility] of [facility] Systolic blood 2019-08-26 16:05:00 164 mm[Hg] [facility] pressure Medicine Diastolic blood 2019-08-26 16:05:00 89 mm[Hg] [facility] pressure Medicine Heart rate 2019-08-26 16:05:00 65 /min [facility] C [facility] of Medicine Body height 2019-08-26 16:05:00 162.6 cm [facility] C [facility] of Medicine Body weight 2019-08-26 16:05:00 81.647 kg [facility] of Medicine BMI 2019-08-26 16:05:00 30.90 kg/m2 [facility] C [facility] of Medicine Systolic blood 2019-05-27 16:05:00 167 mm[Hg] [facility] of pressure Medicine Diastolic blood 2019-05-27 16:05:00 90 mm[Hg] [facility] of pressure Medicine Heart rate 2019-05-27 16:05:00 60 /min [facility] of Medicine Body height 2019-05-27 16:05:00 162.6 cm [facility] of Medicine Body weight 2019-05-27 16:05:00 81.647 kg [facility] of Medicine BMI 2019-05-27 16:05:00 30.90 kg/m2 [facility] of Medicine Systolic blood 2019-05-27 16:05:00 167 mm[Hg] [facility] of pressure Medicine Diastolic blood 2019-05-27 16:05:00 90 mm[Hg] [facility] Medicine Heart rate 2019-05-27 16:05:00 60 /min [facility] of [facility] Body height 2019-05-27 16:05:00 162.6 cm [facility] of Medicine Body weight 2019-05-27 16:05:00 81.647 kg [facility] of Medicine BMI 2019-05-27 16:05:00 30.90 kg/m2 [facility] Systolic blood 2019-03-18 15:08:00 135 mm[Hg] [facility] pressure Medicine Diastolic blood 2019-03-18 15:08:00 68 mm[Hg] [facility] of pressure Medicine Heart rate 2019-03-18 15:08:00 60 /min [facility] of Medicine Body weight 2019-03-18 15:08:00 96.616 kg [facility] of [facility] BMI 2019-03-18 15:08:00 36.56 kg/m2 [facility] Systolic blood 2019-03-18 15:08:00 135 mm[Hg] [facility] of pressure Medicine Diastolic blood 2019-03-18 15:08:00 68 mm[Hg] [facility] of pressure Medicine Heart rate 2019-03-18 15:08:00 60 /min [facility] Body weight 2019-03-18 15:08:00 96.616 kg [facility] Medicine BMI 2019-03-18 15:08:00 36.56 kg/m2 [facility] of Medicine Body weight 2019-03-04 16:25:00 104.327 kg [facility] BMI 2019-03-04 16:25:00 39.48 kg/m2 [facility] of [facility] Body weight 2019-03-04 16:25:00 104.327 kg [facility] of Medicine BMI 2019-03-04 16:25:00 39.48 kg/m2 [facility] of Medicine Systolic blood 2018-11-17 21:24:00 140 mm[Hg] [facility] pressure Medicine Diastolic blood 2018-11-17 21:24:00 80 mm[Hg] [facility] Medicine Heart rate 2018-11-17 21:24:00 63 /min [facility] of [facility] Body height 2018-11-17 21:11:00 162.6 cm [facility] Body weight 2018-11-17 21:11:00 102.967 kg [facility] of Medicine BMI 2018-11-17 21:11:00 38.96 kg/m2 [facility] of Medicine Systolic blood 2018-11-17 21:24:00 140 mm[Hg] [facility] of pressure Medicine Diastolic blood 2018-11-17 21:24:00 80 mm[Hg] [facility] Medicine Heart rate 2018-11-17 21:24:00 63 /min [facility] Body height 2018-11-17 21:11:00 162.6 cm [facility] Body weight 2018-11-17 21:11:00 102.967 kg [facility] BMI 2018-11-17 21:11:00 38.96 kg/m2 [facility] Procedures Procedure Date / Time Performing Clinician Source Performed ELECTROCARDIOGRAM COMPLETE 2018-11-17 22:58:11 Michael Mancia [facility] Plan of Care Planned Activity Planned Date Details Comments Source Future Scheduled 2021-03-03 Screening for [facility]ge Test 09:26:26 malignant neoplasm of Medici ne of colon (procedure) [code = 582368540] Future Scheduled 2021-03-03 Screening for [facility] Col [facility]ge Test 09:26:26 malignant neoplasm of Medici ne of breast (procedure) [code = 611566316] Future Scheduled 2021-03-03 Pneumococcal 65+ (1 [facility] or [place] Test 09:26:26 of 2 - PPSV23) [code of Medi cine = Pneumococcal 65+ (1 of 2 - PPSV23)] Future Scheduled 2021-03-03 COVID-19 Vaccine (1) [facility] Test 09:26:26 [code = COVID-19 of Medicine Vaccine (1)] Future Scheduled 2021-03-03 TETANUS SHOT (ADULT) [facility] Test 09:26:26 [code = TETANUS SHOT of Medi cine (ADULT)] Future Scheduled 2021-03-03 Diabetic foot [facility] Test 09:26:26 examination of Medicine (regime/therapy) [code = 866199213] Future Scheduled 2021-03-03 ANNUAL DIABETIC [facility]lege Test 09:26:26 RETINOPATHY of Medicine SCREENING [code = ANNUAL DIABETIC RETINOPATHY SCREENING] Future Scheduled 2021-03-03 Hepatitis C [facility] Test 09:26:26 screening of Medicine (procedure) [code = 644470610] Future Scheduled 2021-03-03 ZOSTER VACCINE (1 of [facility] Test 09:26:26 2) [code = ZOSTER of Medicin e VACCINE (1 of 2)] Future Scheduled 2021-03-03 Screening for [facility] Test 09:26:26 osteoporosis of Medicine (procedure) [code = [id number]] Future Scheduled 2021-03-03 MEDICARE AWV [facility] Test 09:26:26 (Initial) [code = of Medicin e MEDICARE AWV (Initial)] Future Scheduled 2021-03-03 BMI FOLLOW UP PLAN [employer] Test 09:26:26 [code = BMI FOLLOW of Medici ne UP PLAN] Future Scheduled 2021-03-03 FLU VACCINE > 6 [facility] C [facility]lege Test 09:26:26 MONTHS [code = FLU of Medici ne VACCINE > 6 MONTHS] Future Scheduled 2021-03-03 FALL SCREEN [code = [facility] Test 09:26:26 FALL SCREEN] of Medicine Future Scheduled 2021-03-01 US ARTERIAL LEG LEFT 1 Occurrences [employer] Test 14:57:35 [code = 66516] starting of Medicine 03/01/2021 until 03/01/2022 Future Scheduled BMI FOLLOW UP PLAN [employer] Test [code = BMI FOLLOW of Medici ne UP PLAN] Future Scheduled HEPATITIS C [facility] Test SCREENING [code = of Medicin e HEPATITIS C SCREENING] Future Scheduled FALL SCREEN [code = [facility] Test FALL SCREEN] of Medicine Future Scheduled OSTEOPOROSIS [facility] Test SCREENING [code = of Medicin e OSTEOPOROSIS SCREENING] Future Scheduled PNEUMOVAX >=65 [facility] Test (PPSV23) [code = of Medicine PNEUMOVAX >=65 (PPSV23)] Future Scheduled PREVNAR >= 65 [facility] Col [facility] Test (PCV13) [code = of Medicine PREVNAR >= 65 (PCV13)] Future Scheduled MEDICARE AWV [facility] Test (Initial) [code = of Medicin e MEDICARE AWV (Initial)] Future Scheduled FLU VACCINE > 6 [facility] Test MONTHS [code = FLU of Medici ne VACCINE > 6 MONTHS] Future Scheduled COLON CANCER [facility] Test SCREENING: of Medicine COLONOSCOPY [code = COLON CANCER SCREENING: COLONOSCOPY] Future Scheduled MAMMOGRAM ANNUAL [facility] Test [code = MAMMOGRAM of Medicin e ANNUAL] Future Scheduled TETANUS SHOT (ADULT) [facility] Test [code = TETANUS SHOT of Medi cine (ADULT)] Future Scheduled Diabetic foot [facility] Test examination of Medicine (regime/therapy) [code = [id number]] Future Scheduled ANNUAL DIABETIC [facility] Test RETINOPATHY of Medicine SCREENING [code = ANNUAL DIABETIC RETINOPATHY SCREENING] Future Scheduled HEPATITIS C [facility] Test SCREENING [code = of Medicin e HEPATITIS C SCREENING] Future Scheduled FALL SCREEN [code = [facility] Test FALL SCREEN] of Medicine Future Scheduled OSTEOPOROSIS [facility] Test SCREENING [code = of Medicin e OSTEOPOROSIS SCREENING] Future Scheduled PNEUMOVAX >=65 [facility] Test (PPSV23) [code = of Medicine PNEUMOVAX >=65 (PPSV23)] Future Scheduled PREVNAR >= 65 [employer] Test (PCV13) [code = of Medicine PREVNAR >= 65 (PCV13)] Future Scheduled MEDICARE AWV [facility] Test (Initial) [code = of Medicin e MEDICARE AWV (Initial)] Future Scheduled FLU VACCINE > 6 [employer]lege Test MONTHS [code = FLU of Medici ne VACCINE > 6 MONTHS] Future Scheduled BMI FOLLOW UP PLAN [employer] Test [code = BMI FOLLOW of Medici ne UP PLAN] Future Scheduled COLON CANCER [facility] e[facility] Test SCREENING: of Medicine COLONOSCOPY [code = COLON CANCER SCREENING: COLONOSCOPY] Future Scheduled MAMMOGRAM ANNUAL [facility] College Test [code = MAMMOGRAM of Medicin e ANNUAL] Future Scheduled TETANUS SHOT (ADULT) [facility] Test [code = TETANUS SHOT of Medi cine (ADULT)] Future Scheduled Diabetic foot [employer] Test examination of Medicine (regime/therapy) [code = [id number]] Future Scheduled ANNUAL DIABETIC [facility] C ollege Test RETINOPATHY of Medicine SCREENING [code = ANNUAL DIABETIC RETINOPATHY SCREENING] Future Scheduled HEPATITIS C [facility] [employer] Test SCREENING [code = of Medicin e HEPATITIS C SCREENING] Future Scheduled FALL SCREEN [code = [employer] FALL SCREEN] of Medicine Future Scheduled OSTEOPOROSIS [facility] Test SCREENING [code = of Medicin e OSTEOPOROSIS SCREENING] Future Scheduled MEDICARE AWV [facility] [place] [facility] Test (Initial) [code = of Medicin e MEDICARE AWV (Initial)] Future Scheduled FLU VACCINE > 6 [facility] C ollege Test MONTHS [code = FLU of Medici ne VACCINE > 6 MONTHS] Future Scheduled BMI FOLLOW UP PLAN [employer] Test [code = BMI FOLLOW of Medici ne UP PLAN] Future Scheduled COLON CANCER [facility] [place] [facility] Test SCREENING: of Medicine COLONOSCOPY [code = COLON CANCER SCREENING: COLONOSCOPY] Future Scheduled MAMMOGRAM ANNUAL [facility] College Test [code = MAMMOGRAM of Medicin e ANNUAL] Future Scheduled TETANUS SHOT (ADULT) [facility] [employer] Test [code = TETANUS SHOT of Medi cine (ADULT)] Future Scheduled Diabetic foot [facility] Col lege Test examination of Medicine (regime/therapy) [code = [id number]] Future Scheduled ANNUAL DIABETIC [facility] [employer] Test RETINOPATHY of Medicine SCREENING [code = ANNUAL DIABETIC RETINOPATHY SCREENING] Future Scheduled HEPATITIS C [facility] [place] [facility] Test SCREENING [code = of Medicin e HEPATITIS C SCREENING] Future Scheduled ZOSTER VACCINE (1 of [facility] [employer] Test 2) [code = ZOSTER of Medicin e VACCINE (1 of 2)] Future Scheduled FALL SCREEN [code = [employer] FALL SCREEN] of Medicine Future Scheduled OSTEOPOROSIS [facility] [facility] Test SCREENING [code = of Medicin e OSTEOPOROSIS SCREENING] Future Scheduled MEDICARE AWV [facility] Test (Initial) [code = of Medicin e MEDICARE AWV (Initial)] Future Scheduled FLU VACCINE > 6 [facility] [employer] Test MONTHS [code = FLU of Medici ne VACCINE > 6 MONTHS] Future Scheduled BMI FOLLOW UP PLAN [employer] Test [code = BMI FOLLOW of Medici ne UP PLAN] Future Scheduled COLON CANCER [facility] Test SCREENING: of Medicine COLONOSCOPY [code = COLON CANCER SCREENING: COLONOSCOPY] Future Scheduled MAMMOGRAM ANNUAL [facility] College Test [code = MAMMOGRAM of Medicin e ANNUAL] Future Scheduled TETANUS SHOT (ADULT) [employer] [employer] Test [code = TETANUS SHOT of Medi cine (ADULT)] Future Scheduled Diabetic foot [facility] Col lege Test examination of Medicine (regime/therapy) [code = [id number]] Future Scheduled ANNUAL DIABETIC [facility] [employer] Test RETINOPATHY of Medicine SCREENING [code = ANNUAL DIABETIC RETINOPATHY SCREENING] Future Scheduled HEPATITIS C [facility] Test SCREENING [code = of Medicin e HEPATITIS C SCREENING] Future Scheduled ZOSTER VACCINE (1 of [facility] [employer] Test 2) [code = ZOSTER of Medicin e VACCINE (1 of 2)] Future Scheduled FALL SCREEN [code = [employer] FALL SCREEN] of Medicine Future Scheduled OSTEOPOROSIS [facility] [employer] Test SCREENING [code = of [...] ne UP PLAN] Future Scheduled COLON CANCER [facility] Test SCREENING: of Medicine COLONOSCOPY [code = COLON CANCER SCREENING: COLONOSCOPY] Future Scheduled MAMMOGRAM ANNUAL [employer] Test [code = MAMMOGRAM of Medicin e ANNUAL] Future Scheduled MEDICARE AWV [code = [facility] [employer] Test MEDICARE AWV] of Medicine Future Scheduled TETANUS SHOT (ADULT) [facility] [employer] Test [code = TETANUS SHOT of Medi cine (ADULT)] Future Scheduled BMI FOLLOW UP PLAN [employer] Test [code = BMI FOLLOW of Medici ne UP PLAN] Future Scheduled HEPATITIS C [facility] [place] [facility] Test SCREENING [code = of Medicin e HEPATITIS C SCREENING] Future Scheduled FALL SCREEN [code = [employer] FALL SCREEN] of Medicine Future Scheduled OSTEOPOROSIS [facility] Test SCREENING [code = of Medicin e OSTEOPOROSIS SCREENING] Future Scheduled PNEUMOVAX >=65 [facility] Co llege Test (PPSV23) [code = of Medicine PNEUMOVAX >=65 (PPSV23)] Future Scheduled PREVNAR >= 65 [facility] Col lege Test (PCV13) [code = of Medicine PREVNAR >= 65 (PCV13)] Future Scheduled FLU VACCINE > 6 [facility] [employer]lege Test MONTHS [code = FLU of Medici ne VACCINE > 6 MONTHS] Future Scheduled COLON CANCER [facility] Test SCREENING: of Medicine COLONOSCOPY [code = COLON CANCER SCREENING: COLONOSCOPY] Future Scheduled MAMMOGRAM ANNUAL [facility] College Test [code = MAMMOGRAM of Medicin e ANNUAL] Future Scheduled TETANUS SHOT (ADULT) [facility] [employer] Test [code = TETANUS SHOT of Medi cine (ADULT)] Future Scheduled Diabetic foot [employer] Test examination of Medicine (regime/therapy) [code = [id number]] Future Scheduled ANNUAL DIABETIC [facility] [employer]lege [...] FALL SCREEN] of Medicine Future Scheduled OSTEOPOROSIS [facility] Test SCREENING [code = of Medicin e OSTEOPOROSIS SCREENING] Future Scheduled PNEUMOVAX >=65 [facility] Co llege Test (PPSV23) [code = of Medicine PNEUMOVAX >=65 (PPSV23)] Future Scheduled PREVNAR >= 65 [facility] Col lege Test (PCV13) [code = of Medicine PREVNAR >= 65 (PCV13)] Future Scheduled MEDICARE AWV [facility] Test (Initial) [code = of Medicin e MEDICARE AWV (Initial)] Future Scheduled FLU VACCINE > 6 [facility] C ollege Test MONTHS [code = FLU of Medici ne VACCINE > 6 MONTHS] Future Scheduled COLON CANCER [facility] Test SCREENING: of Medicine COLONOSCOPY [code = COLON CANCER SCREENING: COLONOSCOPY] Future Scheduled MAMMOGRAM ANNUAL [facility] Test [code = MAMMOGRAM of Medicin e ANNUAL] Future Scheduled TETANUS SHOT (ADULT) [facility] College Test [code = TETANUS SHOT of Medi cine (ADULT)] Future Scheduled Diabetic foot [facility] Col lege Test examination of Medicine (regime/therapy) [code = [id number]] Future Scheduled ANNUAL DIABETIC [facility] C ollege Test RETINOPATHY of Medicine SCREENING [code = ANNUAL DIABETIC RETINOPATHY SCREENING] Future Scheduled US ARTERIAL LEG LEFT 1 Occurrences [employer] Test [code = 85464] starting of Medicine 02/03/2020 until 09/02/2020 Future Scheduled US ARTERIAL LEG LEFT 1 Occurrences [employer] Test [code = 89490] starting of Medicine 11/25/2019 until 06/24/2020 Future Scheduled US ARTERIAL LEG LEFT 1 Occurrences [employer] Test [code = 23256] starting of Medicine 05/27/2019 until 12/27/2019 Encounters Start End Encounter Admission Attending Care Care Encounter Source Date/Time Date/Time Type Type Clinicians Facility Department ID 2020-11-25 Outpatient MIO DOAN Surgery [id number] [facility] 17:23:10 IAN 2021-03-01 2021-03-01 Outpatient KWAME [facility] [id number] [facility] 12:23:45 15:02:33 Colleg e of Medicin e 2021-03-01 2021-03-01 Office KWAME Doan 1.2.840.114 [id number] [facility] 14:15:00 15:02:27 Visit Jayer AMBULATOR 350.1.13.21 College Y 0.2.7.2.686 of [id number] [facility] 825 e 2020-02-03 2020-02-03 Office KWAME Doan 1.2.840.[id number] [place] [address] 14:42:26 17:03:39 Visit Jayer AMBULATOR 350.1.13.21 College Y 0.2.7.2.686 of [id number] [facility] 825 e 2020-02-03 2020-02-03 Office KWAME Doan 1.2.840.114 [id number] 14:42:26 17:03:39 Visit Jayer AMBULATOR 350.1.13.21 Y 0.2.7.2.686 [id number] [facility] 2020-01-15 2020-01-15 [facility] [id number] [facility] 00:00:00 00:00:00 2019-11-25 2019-11-25 Office KWAME Doan 1.2.840.[id number] [place] [address] 09:56:31 16:38:39 Visit Jayer AMBULATOR 350.1.13.21 College Y 0.2.7.2.686 of [id number] [place] [address] e 2019-11-25 2019-11-25 Office KWAME Doan 1.2.840.114 [id number] 09:56:31 16:38:39 Visit Jayer AMBULATOR 350.1.13.21 Y 0.2.7.2.686 [id number] [facility] 2019-08-26 2019-08-26 Office KWAME Doan 1.2.840.[id number] [place] [address] 09:32:20 11:46:44 Visit Jayer AMBULATOR 350.1.13.21 College Y 0.2.7.2.686 of [id number] [facility] 825 e 2019-08-26 2019-08-26 Office KWAME Doan 1.2.840.114 [id number] 09:32:20 11:46:44 Visit Jayer AMBULATOR 350.1.13.21 Y 0.2.7.2.686 [id number] [facility] 2019-05-27 2019-05-27 Office KWAME Doan 1.2.840.[id number] [place] [address] 09:13:18 12:39:17 Visit Jayer AMBULATOR 350.1.13.21 College Y 0.2.7.2.686 of [id number] [facility] 825 e 2019-05-27 2019-05-27 Office KWAME Doan 1.2.840.114 [id number] 09:13:18 12:39:17 Visit Jayer AMBULATOR 350.1.13.21 Y 0.2.7.2.686 [id number] 825 2019-03-18 2019-03-18 Office KWAME Doan 1.2.840.[id number] [place] [address] 08:40:49 09:39:44 Visit Jayer AMBULATOR 350.1.13.21 College Y 0.2.7.2.686 of [id number] [facility] 825 e 2019-03-18 2019-03-18 Office Franki KWAME 1.2.840.114 [id number] 08:40:49 09:39:44 Visit Jayer AMBULATOR 350.1.13.21 Y 0.2.7.2.686 [id number] 825 2019-03-04 2019-03-04 Office FrankiKWAME 1.2.840.[id number] [place] [address] 09:20:10 11:54:55 Visit Jayer AMBULATOR 350.1.13.21 College Y 0.2.7.2.686 of [id number] [facility] 820 e 2019-03-04 2019-03-04 Office Franki KWAME 1.2.840.114 [id number] 09:20:10 11:54:55 Visit Jayer AMBULATOR 350.1.13.21 Y 0.2.7.2.686 [id number] 820 2018-11-17 2018-11-17 Office Michael Mancia 1.2.840.114 [id number] [facility] 15:58:42 16:43:42 Visit AMBULATOR 350.1.13.21 College Y 0.2.7.2.686 of [id number] [facility] 300 e 2018-11-17 2018-11-17 Office Michael Mancia 1.2.840.114 [id number] 15:58:42 16:43:42 Visit AMBULATOR 350.1.13.21 Y 0.2.7.2.686 [id number] 300 Results Test Description Test Time Test Comments Results Result Comments Source POCT-GLUCOSE METER 2020-01-18 09:24:00 Test Item Value Reference Range Interpretation Comme nts POC-GLUCOSE METER (BEAKER) 145 mg/dL 70-110 H : TESTED AT [facility] [address] [facility] (test code = 1538) BRIAN Paul, [address]: Medical Records Technician/Techni charo ID = [id number] for MARILU MIRANDA SARS-COV2/RT-PCR ([facility])2020-01-15 14:45:00 Test Item Value Reference Range Interpretation Comments SARS-COV2/RT-PCR (test Negative Not Detected, Negative, code = 2564476) See external report for linked test SARS-COV-2 PERFORMING LAB [facility] (test code = 8813520) Negative result for this test determines that [...] individuals suspected of COVID-19 by their healthcare provider.This test [...] justifying the authorization of the emergency use ofin vitro diagnostic tests for detection and/or diagnosis of COVID-19 is terminated under Section 564(b)(2) of the Act or the EUA is revoked under Section 564(g) of the Act.Fact Sheet for Healthcare Prov iders:https://www.[employer]/sites/default/files/product/documents/Fact_Sheet_HC _Jdxcvbauo_Plvw_ILEM-ZiM-7.pdfFact Sheet for Healthcare Patients:https://www.[employer]/sites/default/files/product/docume nts/Beew_Sfzll_Hlbmnmls_Rlgh_QFYC-QnC-7.pdfPerforming Laboratory:[place] [id number], [place] [address]WHQM-ZWFPEWO METER 2019-01-16 11:39:00 Test Item Value Reference Range Interpretation Comments POC-GLUCOSE METER 100 mg/dL 70-110 : TESTED A T [facility] [address] ([facility]) (test code = [facility] G [facility] [place], 1538) [address]: Medical Records Technician/Techni charo ID = [id number] for BOZENA GEORGE CBC W/PLT COUNT & AUTO [id number] 10:30:00 Test Item Value Reference Range Interpretation [...] 486) HYPERSEGMENTATION Present (CELLAVISION)(BEAKER) (test code = 2775) HYPOCHROMIA (BEAKER) (test code = 1+ few 963) ANISOCYTOSIS (BEAKER) (test code = 1+ few 961) MACROCYTES (BEAKER) (test code = 1+ few 964) ARTIFACT (CELLAVISION)(BEAKER) Present (test code = 3432) PLATELET CONCENTRATION Adequate (CELLAVISION)(BEAKER) (test code = 3438) Received comment: User comments: Slide comments:POCT-GLUCOSE [id number] 08:27:00 Test Item Value Reference Range Interpretation Comments POC-GLUCOSE METER 90 mg/dL 70-110 : TESTED A T [facility] 6720 (BEAKER) (test code = [facility] [employer] [place], 1538) [address]: Medical Records Technician/Techni charo ID = [id number] for BOZENA GOLDBERG BASIC METABOLIC [id number] 05:15:00 Test Item Value Reference Range Interpretation [...] NOT APPLICABLE FOR DIALYSIS PATIEN TS. POCT-GLUCOSE [id number] 20:27:00 Test Item Value Reference Range Interpretation Comments POC-GLUCOSE METER 119 mg/dL 70-110 H : TESTED A T [facility] [address]20 (BEAKER) (test code = [employer] [place] [place], 1538) 22[address]: Medical Records Technician/Techni charo ID = [id number] for Jeffery Boone POCT-GLUCOSE [id number] 17:11:00 Test Item Value Reference Range Interpretation Comments POC-GLUCOSE METER 122 mg/dL 70-110 H : TESTED A T [facility] [address] (BEAKER) (test code = [facility]) 59671: Medical Records Technician/Techni charo ID = [id number] for Case at, Kassieella POCT-GLUCOSE [id number] 13:01:00 Test Item Value Reference Range Interpretation Comments POC-GLUCOSE METER 113 mg/dL 70-110 H : TESTED A T [facility] 6720 (BEAKER) (test code = [facility]) 87065: Medical Records Technician/Techni charo ID = [id number] for ANA PALACIO POCT-GLUCOSE [id number] 08:45:00 Test Item Value Reference Range Interpretation Comments POC-GLUCOSE METER 98 mg/dL 70-110 : TESTED A T [facility] [address] (BEAKER) (test code = [facility]) 76536: Medical Records Technician/Techni charo ID = [id number] for ANA GAGNON POCT-GLUCOSE [id number] 21:07:00 Test Item Value Reference Range Interpretation Comments POC-GLUCOSE METER 84 mg/dL 70-110 : TESTED A T [facility] 6720 (BEAKER) (test code = [facility]) 96606: Medical Records Technician/Techni charo ID = [id number] for Pk Hammonds POCT-GLUCOSE [id number] 16:47:00 Test Item Value Reference Range Interpretation Comments POC-GLUCOSE METER 108 mg/dL 70-110 : TESTED A T [facility] 6720 (BEAKER) (test code = [facility]) 73545: Medical Records Technician/Techni charo ID = [id number], [place] POCT-GLUCOSE [id number] 15:12:00 Test Item Value Reference Range Interpretation Comments POC-GLUCOSE METER 118 mg/dL 70-110 H : TESTED A T [facility] 6720 (BEAKER) (test code = [facility]) 42109: Medical Records Technician/Techni charo ID = [id number] for DA VIS RODGER POCT-GLUCOSE [id number] 15:04:00 Test Item Value Reference Range Interpretation Comments POC-GLUCOSE METER 127 mg/dL 70-110 H : TESTED A T [facility] 6720 (BEAKER) (test code = [facility], 153) 19348: Medical Records Technician/Techni charo ID = [id number] for HU NTER, HIWITHA POCT-GLUCOSE [id number] 14:34:00 Test Item Value Reference Range Interpretation Comments POC-GLUCOSE METER 89 mg/dL 70-110 : TESTED A T [facility] [address] (BEAKER) (test code = [facility], 153) 89815: Medical Records Technician/Techni charo ID = [id number] for BATEMAN ER, [place]A POCT-GLUCOSE [id number] 13:53:00 Test Item Value Reference Range Interpretation Comments POC-GLUCOSE METER 137 mg/dL 70-110 H : TESTED A T [facility] 6720 (BEAKER) (test code = [facility], 153) 67081: Medical Records Technician/Techni charo ID = [id number], [place] POCT-GLUCOSE [id number] 12:44:00 Test Item Value Reference Range Interpretation Comments POC-GLUCOSE METER 125 mg/dL 70-110 H : TESTED A T [facility] 6720 (BEAKER) (test code = [facility], 153) 18988: Medical Records Technician/Techni charo ID = [id number] for OC CRUZ POCT-GLUCOSE [id number] 08:33:00 Test Item Value Reference Range Interpretation Comments POC-GLUCOSE METER 112 mg/dL 70-110 H : TESTED A T [facility] 67[address] (BEAKER) (test code = [facility], 153) 41349: Medical Records Technician/Techni charo ID = [id number] for NICO NORIEGA CHIRY POCT-GLUCOSE [id number] 07:56:00 Test Item Value Reference Range Interpretation Comments POC-GLUCOSE METER 96 mg/dL 70-110 : TESTED A T [facility] [address] (BEAKER) (test code = [facility], 153) 06852: Medical Records Technician/Techni charo ID = [id number] for Compa alcantar Danica BASIC METABOLIC [id number] 07:07:00 Test Item Value Reference Range Interpretation [...] PATIEN TS. CBC W/PLT COUNT & AUTO [id number] 06:52:00 Test Item Value Reference Range Interpretation [...] PERCENT (BEAKER) (test code = 2801) POCT-GLUCOSE [id number] 21:36:00 Test Item Value Reference Range Interpretation Comments POC-GLUCOSE METER 143 mg/dL 70-110 H : TESTED A T [facility] 6720 (BEAKER) (test code = [facility], 1538) 85127: Medical Records Technician/Techni charo ID = [id number] for DA VIS, RODGER POCT-GLUCOSE [id number] 19:20:00 Test Item Value Reference Range Interpretation Comments POC-GLUCOSE METER 117 mg/dL 70-110 H : TESTED A T [facility] 6720 (BEAKER) (test code = [facility], 1538) 74085: Medical Records Technician/Techni charo ID = [id number] for DA VIS, RODGER POCT-GLUCOSE [id number] 09:30:00 Test Item Value Reference Range Interpretation Comments POC-GLUCOSE METER 100 mg/dL 70-110 : TESTED A T [facility] 6720 (BEAKER) (test code = [facility], 1538) 61767: Medical Records Technician/Techni charo ID = [id number] for ANA PALACIO BASIC METABOLIC [id number] 05:18:00 Test Item Value Reference Range Interpretation [...] PATIEN TS. CBC W/PLT COUNT & AUTO [id number] 04:37:00 Test Item Value Reference Range Interpretation [...] PERCENT (BEAKER) (test code = 2801) POCT-GLUCOSE [id number] 20:59:00 Test Item Value Reference Range Interpretation Comments POC-GLUCOSE METER 95 mg/dL 70-110 : TESTED A T [facility] 6720 (BEAKER) (test code = [facility], 153) 58956: Medical Records Technician/Techni charo ID = [id number] for RODGER SPARKS POCT-GLUCOSE [id number] 17:08:00 Test Item Value Reference Range Interpretation Comments POC-GLUCOSE METER 90 mg/dL 70-110 : TESTED A T [facility] 6720 (BEAKER) (test code = [facility], 153) 85418: Medical Records Technician/Techni charo ID = [id number] for BELLE CHAPA POCT-GLUCOSE [id number] 12:10:00 Test Item Value Reference Range Interpretation Comments POC-GLUCOSE METER 118 mg/dL 70-110 H : TESTED A T [facility] 6720 (BEAKER) (test code = [facility], 153) 62238: Medical Records Technician/Techni charo ID = [id number] for BELLE GRIFFITHS U/S, RENAL, [id number] 10:37:00Reason for exam:->ckdFINAL REPORT TECHNIQUE: Grayscale ultrasound of the kidneys and bladder. INDICATION: 73-year-old woman with chronic kidney disease. COMPARISON: None. FINDINGS: RIGHT KIDNEY: The right kidney measures 8.7 x 4.1 x 4.6 cm. Cortical thickness measures 1.1 cm. No solid mass lesions. Nohydronephrosis. Renal artery and vein are patent. LEFT KIDNEY: The left kidney measures 9.7 x 4.2 x 3.9 cm. Cortical thickness measures 1.7 cm. No solid mass lesions. No hydronephrosis. Renal artery and vein are patent. BLADDER: Unremarkable. IMPRESSION:Unremarkable renal ultrasound. Signed: Silvio [place] MDReport Verified Date/Time: 01/11/2019 10:37:05 Reading Location: [address] Body Reading Room POCT- GLUCOSE [id number] 09:22:00 Test Item Value Reference Range Interpretation Comments POC-GLUCOSE METER 75 mg/dL 70-110 : TESTED A T [facility] 67[address] (BEAKER) (test code = [facility] [place], 1538) 77213: Medical Records Technician/Techni charo ID = [id number] for CICI DRISCOLL [id number] 04:57:00 Test Item Value Reference Range Interpretation Comments PHOSPHORUS (BEAKER) (test code = 2.8 mg/dL 2.3-4.7 604) [id number] 04:57:00 Test Item Value Reference Range Interpretation Comments MAGNESIUM (BEAKER) (test code = 1.9 mg/dL 1.6-2.6 627) BASIC METABOLIC [id number] 04:57:00 Test Item Value Reference Range Interpretation [...] PATIEN TS. CBC W/PLT COUNT & AUTO [id number] 04:32:00 Test Item Value Reference Range Interpretation [...] PERCENT (BEAKER) (test code = 2801) POCT-GLUCOSE [id number] 22:26:00 Test Item Value Reference Range Interpretation Comments POC-GLUCOSE METER 95 mg/dL 70-110 : TESTED A T [facility] 6720 (BEAKER) (test code = [facility], 1538) 96907: Medical Records Technician/Techni charo ID = [id number] for Beena Reed POCT-GLUCOSE [id number] 17:04:00 Test Item Value Reference Range Interpretation Comments POC-GLUCOSE METER 98 mg/dL 70-110 : TESTED A T [facility] 6720 (BEAKER) (test code = [facility], 1538) 67774: Medical Records Technician/Techni charo ID = [id number] for BELLE CHAPA PTH, [id number] 16:02:00 Test Item Value Reference Range Interpretation Comments PARATHYROID HORMONE INTACT 200.6 pg/mL 8.5-72.5 H (BEAKER) (test code = 577) CBC W/PLT COUNT & AUTO [id number] 15:09:00 Test Item Value Reference Range Interpretation [...] % 0-1 PERCENT (BEAKER) (test code = 2802) POCT-GLUCOSE [id number] 11:53:00 Test Item Value Reference Range Interpretation Comments POC-GLUCOSE METER 132 mg/dL 70-110 H : TESTED A T [facility] 6720 (BEAKER) (test code = [facility] [place], 1538) 14545: Medical Records Technician/Techni charo ID = [id number] for Cici Isaacs POCT-GLUCOSE [id number] 09:42:00 Test Item Value Reference Range Interpretation Comments POC-GLUCOSE METER 112 mg/dL 70-110 H : TESTED A T [facility] 6720 (BEAKER) (test code = [facility] [place], 1538) 57801: Medical Records Technician/Techni charo ID = [id number] for Cici Isaacs URIC [id number] 09:14:00 Test Item Value Reference Range Interpretation Comments URIC ACID (BEAKER) (test code = 7.3 mg/dL 2.6-7.2 H 773) [id number] 06:14:00 Test Item Value Reference Range Interpretation Comments PHOSPHORUS (BEAKER) (test code = 2.8 mg/dL 2.3-4.7 604) [id number] 06:14:00 Test Item Value Reference Range Interpretation Comments MAGNESIUM (BEAKER) (test code = 1.9 mg/dL 1.6-2.6 627) BASIC METABOLIC [id number] 06:14:00 Test Item Value Reference Range Interpretation [...] NOT APPLICABLE FOR DIALYSIS PATIEN TS. POCT-GLUCOSE [id number] 21:33:00 Test Item Value Reference Range Interpretation Comments POC-GLUCOSE METER 113 mg/dL 70-110 H : TESTED A T [facility] 6720 (BEAKER) (test code = [facility], 1538) 27980: Medical Records Technician/Techni charo ID = [id number] for DA VIOLETA FONTENOTO POCT-GLUCOSE [id number] 17:16:00 Test Item Value Reference Range Interpretation Comments POC-GLUCOSE METER 113 mg/dL 70-110 H : TESTED A T [facility] 6720 (BEAKER) (test code = [facility], 1538) [id number]: Medical Records Technician/Techni charo ID = [id number] for RIDDHI AGUILAR POCT-GLUCOSE [id number] 12:17:00 Test Item Value Reference Range Interpretation Comments POC-GLUCOSE METER 166 mg/dL 70-110 H : TESTED A T [facility] 6720 (BEAKER) (test code = [facility], 1538) 12849: Medical Records Technician/Techni charo ID = [id number] for SC CHINTAN DEL VALLE POCT-GLUCOSE [id number] 07:51:00 Test Item Value Reference Range Interpretation Comments POC-GLUCOSE METER 143 mg/dL 70-110 H : TESTED A T [facility] 6720 (BEAKER) (test code = [facility], 1538) 31665: Medical Records Technician/Techni charo ID = [id number] for Pe meaghan, Neena [id number] 06:28:00 Test Item Value Reference Range Interpretation Comments MAGNESIUM (BEAKER) 1.8 mg/dL 1.6-2.6 Specimen slightly (test code = 627) hemolyzed [id number] 06:28:00 Test Item Value Reference Range Interpretation Comments PHOSPHORUS (BEAKER) 2.5 mg/dL 2.3-4.7 Specimen slightly (test code = 604) hemolyzed BASIC METABOLIC [id number] 06:28:00 Test Item Value Reference Range Interpretation [...] PATIEN TS. CBC W/PLT COUNT & AUTO [id number] 04:20:00 Test Item Value Reference Range Interpretation [...] 0-1 PERCENT (BEAKER) (test code = 2801) [id number] 17:40:00 Test Item Value Reference Range Interpretation Comments PHOSPHORUS (BEAKER) (test code = 3.3 mg/dL 2.3-4.7 604) [id number] 17:40:00 Test Item Value Reference Range Interpretation Comments MAGNESIUM (BEAKER) (test code = 1.8 mg/dL 1.6-2.6 627) BASIC METABOLIC [id number] 17:40:00 Test Item Value Reference Range Interpretation [...] S NOT APPLICABLE FOR DIALYSIS PATIEN TS. [id number] 17:03:00 Test Item Value Reference Range Interpretation [...] is 2.5-3.5 for patients wiht mechanical heart valves.CBC W/PLT COUNT & AUTO [id number] 16:56:00 Test Item Value Reference Range Interpretation [...] PERCENT (BEAKER) (test code = 2801) POCT-GLUCOSE [id number] 16:55:00 Test Item Value Reference Range Interpretation Comments POC-GLUCOSE METER 200 mg/dL 70-110 H : TESTED A T [place] [address] ([facility]) (test code = [facility], 1538) 98943: Medical Records Technician/Techni charo ID = [id number] for JOSE DENNEY [id number] 13:51:00 Test Item Value Reference Range Interpretation Comments ACTIVATED CLOTTING TIME 274 sec Refe rence Range: 74-137 (BEAKER) (test code = second s, 441) Baseline/TESTED AT [facility] 67[address] [facility] 7703 0 [id number] 13:51:00 Test Item Value Reference Range Interpretation Comments ACTIVATED CLOTTING TIME 323 sec Refe rence Range: 74-137 (BEAKER) (test code = second s, 441) Baseline/TESTED AT [facility] 67[address] [facility] [place] 7703 0 CBC W/PLT COUNT & AUTO [id number] 07:44:00 Test Item Value Reference Range Interpretation [...] PERCENT (BEAKER) (test code = 2801) POCT-GLUCOSE [id number] 06:13:00 Test Item Value Reference Range Interpretation Comments POC-GLUCOSE METER 123 mg/dL 70-110 H : TESTED A T [facility] 6720 (BEAKER) ([facility] = 1538) 94486: Medical Records Technician/Techni charo ID = [id number] for JORD AN, LACRYSTAL PLATELET [id number] 11:27:00 Test Item Value Reference Range Interpretation Comments PLATELET COUNT (BEAKER) (test 112 K/CU MM 150-450 L code = 756) [id number] 11:07:00 Test Item Value Reference Range Interpretation Comments SODIUM (BEAKER) (test code = 381) 138 meq/L 136-145 POTASSIUM (BEAKER) (test code = 4.7 meq/L 3.5-5.1 379) CHLORIDE (BEAKER) (test code = 382) 107 meq/L 98-107 CO2 (BEAKER) (test code = 355) 26 meq/L 22-29 [id number] 11:07:00 Test Item Value Reference Range Interpretation Comments GLUCOSE RANDOM (BEAKER) (test code 134 mg/dL 70-105 H = 652) BUN AND [id number] 11:07:00 Test Item Value Reference Range Interpretation [...] S NOT APPLICABLE FOR DIALYSIS PATIEN TS. [id number] 10:54:00 Test Item Value Reference Range Interpretation Comments HEMOGLOBIN (BEAKER) (test code = 13.1 GM/DL 11.2-15.7 410) PET, CARDIAC PERFUSION MULTIPLE STUDIES, REST AND [id number] 16:17:00 Reason for Exam:->i73.9, e11.9, i25.10FINAL REPORT PROCEDURE: MYOCARDIAL PERFUSION PET IMAGING (Rest/Stress)CPT CODE:13743 INDICATION: Known CAD CARDIOVASCULAR PROFILE:CAD History: Known CAD, CHFSymptoms: NoneRisk Factors: CAD, diabetes, hypertension, dyslipidemia, PAD, family history early CADBMI: 42.7Medications: Amiodarone, aspirin, carvedilol, furosemide, Plavix, Crestor, Entresto STRESS PROTOCOL:Pharmacologic stress was achieved with a 10-second intravenous infusion of regadenoson 0.4 mg. The radiopharmaceutical was administered 30 seconds after the start of the regadenoson infusion. IMAGING PROTOCOL:Limited low-dose CT imaging was performed for attenuation correction. 40.1 mCi of Rb-82 chloride was injectedintravenously at rest, and gated PET images were [...] 3. Decreased resting LVEF, which does not deterio rate with pharmacologic stress.4. Normal extracardiac tracer distribution.5. There is no prior studyfor comparison. Signed: Darrell Naidu MDReport Verified Date/Time: 11/26/2018 16:17:24 Reading Location: [address] Reading Room ELECTROCARDIOGRAM [id number] 22:58:11Result approved by Michael Mancia MD on 11/17/18[facility] METABOLIC [id number] 11:28:00 Test Item Value Reference Range Interpretation [...] PATIEN TS. CBC W/PLT COUNT & AUTO [id number] 11:19:00 Test Item Value Reference Range Interpretation [...] (BEAKER) (test code = 2801) BASIC METABOLIC [id number] 14:13:00 Test Item Value Reference Range Interpretation [...] PATIEN TS. CBC W/PLT COUNT & AUTO [id number] 13:54:00 Test Item Value Reference Range Interpretation [...]
--- NOTE | 2021-09-26 07:34 | RAD REPORT ---
EXAM DESCRIPTION: RAD - Chest Pa And Lat (2 Views) - 09/26/2021 6:47 am CLINICAL HISTORY: PRODUCTIVE COUGH COMPARISON: Chest Single View dated 08/25/2021; Chest Pa And Lat (2 Views) dated 09/02/2020; Chest Sing le View dated 08/29/2020; Chest Single View dated 03/21/2019 FINDINGS: Lines: ICD. Lungs: No evidence of edema or pneumonia. Pleural: No significant pleural effusions or pneumothorax. Cardiac: Cardiomegaly Bones: No acute fractures. Other: IMPRESSION: No acute cardiopulmonary disease.
--- NOTE | 2021-09-26 08:34 | EDPHYS ---
Physician Documentation [facility] Name: Sangita Hendrix Age: 76 yrs Sex: Female : 1945 Arrival Date: 09/26/2021 Time: 06:05 Bed 8 Private MD: ED Physician Sukumar Correa HPI: 09/26 06:19 This 76 yrs old Black Female presents to ER via Unassigned with complaints of Cough, sd2 Congestion. 06:19 76 yo F presents with CC of cough and congestion for the past 2 weeks. Granddaughter sdEnedina gives history and reports they have been giving OTC cough medications without relief. She has not been seen for this as they just assumed it was a cold but it has not been improving. Cough is productive of clear sputum. Pt denies any areas of pain, fever, chest pain, SOB, vomiting or diarrhea. Denies any recent sick contacts. Reports a negative home COVID test at the start of symptoms. . Historical: - Allergies: 06:23 PENICILLINS; jb4 - PMHx: 06:23 BRADYCARDIA; CHF; Dementia; Diabetes - IDDM; Gout; Pacemaker; jb4 - PSHx: 06:23 hysterectomy; Cholecystectomy; jb4 - Immunization history:: Adult Immunizations up to date. - Social history:: Smoking status: Patient denies any tobacco usage or history of. ROS: 06:19 Constitutional: Negative for fever, chills, and weight loss, Eyes: Negative for injury, sd2 pain, redness, and discharge, ENT: Negative for injury, pain, and discharge. Positive for nasal congestion. Cardiovascular: Negative for chest pain, palpitations, and edema, Respiratory: Negative for shortness of breath or wheezing. Positive for cough. Abdomen/GI: Negative for abdominal pain, nausea, vomiting, diarrhea. MS/Extremity: Negative for injury and deformity, Skin: Negative for injury, rash, and discoloration, Neuro: Negative for headache, numbness and tingling. Exam: 06:19 Constitutional: This is a well developed, well nourished patient who is awake, alert, sd2 and in no acute distress. Head/Face: Normocephalic, atraumatic. Eyes: EOMI, normal conjunctiva bilaterally ENT: Nares patent. No nasal discharge, no septal abnormalities noted. Oropharynx with no redness, swelling, or masses, exudates, or evidence of obstruction, uvula midline. Mucous membranes moist. Chest/axilla: Normal chest wall appearance and motion. Nontender with no deformity. Cardiovascular: Regular rate and rhythm with a normal S1 and S2. No gallops, murmurs, or rubs. 2+ distal pulses. Respiratory: Lungs have equal breath sounds bilaterally, clear to auscultation and percussion. No rales, rhonchi or wheezes noted. No increased work of breathing, no retractions or nasal flaring. Abdomen/GI: Soft, non-tender, with normal bowel sounds. No guarding or rebound. No evidence of tenderness throughout. Skin: Warm, dry with normal turgor. Normal color with no rashes, no lesions, and no evidence of cellulitis. MS/ Extremity: Pulses equal, no cyanosis. Neurovascular intact. Full, normal range of motion. Ambulatory without difficulty. Psych: Awake, alert, with orientation to person, place and time. Behavior, mood, and affect are within normal limits. Vital Signs: 06:21 BP 157 / 71; Pulse 62; Resp 16; Temp 98.2(O); Pulse Ox 100% on R/A; Weight 106.59 kg jb4 (R); Height 5 ft. 3 in. (160.02 cm) (R); Pain 3/10; 07:48 BP 158 / 67; Pulse 56; Resp 16; Pulse Ox 100% ; bp 06:21 Body Mass Index 41.63 (106.59 kg, 160.02 cm) jb4 MDM: 06:19 Differential Diagnosis: Bronchitis Influenza Upper Respiratory Infection Sinusitis sd2 Pharyngitis Otitis Media Allergic Rhinitis Viral Syndrome Pneumonia Other among others. Data reviewed: vital signs, nurses notes. 06:24 Patient medically screened. 09/26 06:19 Order name: SARS-COV-2 RT PCR (Document "Date of Onset" if Symptomatic); Complete Time: 08:30 09/26 06:19 Order name: Influenza Screen (a \\T\\ B); Complete Time: 08:01 sd2 09/26 06:19 Order name: XRAY Chest Pa And Lat (2 Views); Complete Time: 08:01 sd2 09/26 09:04 Order name: Glucose, Ancillary Testing [facility] 09/26 08:38 Order name: Blood Glucose Level; Complete Time: 08:54 ranjan Administered Medications: 08:45 Drug: Pepcid (famotidine) 40 mg Route: PO; bp 08:45 Drug: Aspirin Chewable Tablet 81 mg Route: PO; bp 08:45 Drug: Tessalon Perle (benzonatate) 200 mg Route: PO; bp 08:45 Drug: predniSONE 60 mg Route: PO; bp Disposition Summary: 09/26/21 08:33 Discharge Ordered Location: Home [facility] [place] Problem: new ranjan Symptoms: have improved ranjan Condition: Stable ranjan Diagnosis - Coronavirus infection, unspecified ranjan - SARS-associated coronavirus as the cause of diseases classified elsewhere ranjan - Cough ranjan - Acute upper respiratory infection, unspecified ranjan Followup: ranjan - With: Private Physician - When: 2 - 3 days - Reason: Recheck today's complaints, Continuance of care, Re-evaluation by your physician Followup: ranjan - With: Nam Alexander MD - When: 2 - 3 days - Reason: Recheck today's complaints, Continuance of care, Re-evaluation by your physician Followup: ranjan - With: Pipo Mitchell MD - When: 2 - 3 days - Reason: Recheck today's complaints, Continuance of care, Re-evaluation by your physician Discharge Instructions: - Discharge Summary Sheet ranjan - Upper Respiratory Infection, Adult ranjan - Viral Respiratory Infection ranjan - Cool Mist Vaporizer ranjan - Upper Respiratory Infection, Adult, Mhrd-iw-Zkny ranjan - Cough, Adult, Sawg-rd-Xkvk ranjan - Viral Respiratory Infection, Wlnk-Bs-Azzf ranjan - Aspirin and Your Heart ranjan - Cough, Adult ranjan - COVID-19 [facility] [place] - 10 Things You Can Do to Manage Your COVID-19 Symptoms at Home - [facility] ranjan - COVID-19: Quarantine vs. Isolation - [facility] ranjan - Prevent the Spread of COVID-19 if You Are Sick - [facility] ranjan Forms: - Medication Reconciliation Form ranjan - Thank You Letter ranjan - Antibiotic Education ranjan - Prescription Opioid Use [facility] [place] Prescriptions: - budesonide 180 mcg/actuation Inhalation aerosol powdr breath activated - inhale 1 puff by INHALATION route 2 times per day; 1 Pump; Refills: 0, Product ranjan Selection Permitted - Pepcid 20 mg Oral Tablet - take 1 tablet by ORAL route every 12 hours for 30 days; 60 tablet; Refills: 0, [facility] [place] Product Selection Permitted - Tessalon Perles 100 mg Oral Capsule - take 2 capsule by ORAL route every 8 hours As needed; 45 capsule; Refills: 0, [facility] [place] Product Selection Permitted - Guaifenesin AC 10-100 mg/5 mL Oral Liquid - take 7.5 milliliter by ORAL route every 6 hours As needed; 180 milliliter; ranjan Refills: 0, Product Selection Permitted - Prednisone 20 mg Oral Tablet - take 2 tablets by ORAL route once daily for 5 days; 10 tablet; Refills: 0, [facility] [place] Product Selection Permitted Signatures: Dispatcher [employer] Sukumar Velez MD MD cha Bryson, James, RN RN jb4 Wilton Tripp RN RN bp Danica George MD MD sd2
--- NOTE | 2021-09-26 08:34 | ER ---
Nurse's Notes [facility] Name: Sangita Hendrix Age: 76 yrs Sex: Female : 1945 Arrival Date: 09/26/2021 Time: 06:05 Bed 8 Private MD: Diagnosis: Coronavirus infection, unspecified;SARS-associated coronavirus as the cause of diseases classified elsewhere;Cough;Acute upper respiratory infection, unspecified Presentation: 09/26 06:21 Chief complaint: Patient's son or daughter states: She has had a cough for the past 2 jb4 weeks, is coughing up Phlegm, and now has a headache that started this morning. Coronavirus screen: At this time, the client does not indicate any symptoms associated with coronavirus-19. Ebola Screen: No symptoms or risks identified at this time. Resp Distress? No respiratory distress is noted at this time. Initial Sepsis Screen: Does the patient meet any 2 criteria? No. Patient's initial sepsis screen is negative. Does the patient have a suspected source of infection? No. Patient's initial sepsis screen is negative. Risk Assessment: Do you want to hurt yourself or someone else? Patient reports no desire to harm self or others. Onset of symptoms was September 26, 2021. Transition of care: patient was not received from another setting of care. 06:21 Method Of Arrival: Wheelchair 4 06:21 Acuity: MADISYN 3 jb4 Triage Assessment: 07:00 General: Appears in no apparent distress. uncomfortable, Behavior is cooperative, bp appropriate for age, anxious. Pain: Denies pain. EENT: No deficits noted. Neuro: No deficits noted. Cardiovascular: No deficits noted. Respiratory: Breath sounds are coarse bilaterally. GI: No signs and/or symptoms were reported involving the gastrointestinal system. : No signs and/or symptoms were reported regarding the genitourinary system. Derm: No deficits noted. Musculoskeletal: No deficits noted. Historical: - Allergies: 06:23 PENICILLINS; jb4 - PMHx: 06:23 BRADYCARDIA; CHF; Dementia; Diabetes - IDDM; Gout; Pacemaker; jb4 - PSHx: 06:23 hysterectomy; Cholecystectomy; jb4 - Immunization history:: Adult Immunizations up to date. - Social history:: Smoking status: Patient denies any tobacco usage or history of. Screenin:00 Abuse screen: Denies threats or abuse. Denies injuries from another. Nutritional bp screening: No deficits noted. Tuberculosis screening: No symptoms or risk factors identified. Fall Risk None identified. Assessment: 07:00 General: SEE TRIAGE NOTE. bp 07:56 Reassessment: Patient appears in no apparent distress at this time. Patient and/or ph family updated on plan of care and expected duration. Pain level reassessed. Patient is alert, oriented x 3, equal unlabored respirations, skin warm/dry/pink. Pt ambulatory to restroom, accompanied by family, no difficulty noted. 08:21 Reassessment: PT COVID +. MD AT B/S. Cardiovascular: Capillary refill < 3 seconds. bp Respiratory: Airway is patent Respiratory effort is even, unlabored. Vital Signs: 06:21 BP 157 / 71; Pulse 62; Resp 16; Temp 98.2(O); Pulse Ox 100% on R/A; Weight 106.59 kg jb4 (R); Height 5 ft. 3 in. (160.02 cm) (R); Pain 3/10; 07:48 BP 158 / 67; Pulse 56; Resp 16; Pulse Ox 100% ; bp 06:21 Body Mass Index 41.63 (106.59 kg, 160.02 cm) jb4 ED Course: 06:05 Patient arrived in ED. ja2 06:09 Danica George MD is Attending Physician. sd2 06:13 Guerrero Carlos, RN is Primary Nurse. as6 06:23 Triage completed. jb4 06:23 Arm band placed on right wrist. jb4 06:50 XRAY Chest Pa And Lat (2 Views) In Process Unspecified. EDMS 07:00 Patient has correct armband on for positive identification. Bed in low position. Call bp light in reach. Side rails up X2. 07:15 Attending Physician role handed off by Danica George MD ranjan 07:15 Sukumar Correa MD is Attending Physician. ranjan 07:27 Primary Nurse role handed off by Guerrero Carlos, RN bp 07:27 Wilton Tripp, ANAMARIA is Primary Nurse. bp 08:31 Nam Alexander MD is Referral Physician. ranjan 08:31 Pipo Mitchell MD is Referral Physician. ranjan Administered Medications: 08:45 Drug: Pepcid (famotidine) 40 mg Route: PO; bp 08:45 Drug: Aspirin Chewable Tablet 81 mg Route: PO; bp 08:45 Drug: Tessalon Perle (benzonatate) 200 mg Route: PO; bp 08:45 Drug: predniSONE 60 mg Route: PO; bp Medication: 07:00 VIS not applicable for this client. bp Outcome: 08:33 Discharge ordered by MD. woodruff 09:23 Patient left the ED. bp Signatures: Dispatcher [employer] EDMS Sukumar Correa MD MD cha Hall, Patricia, RN RN Buddy Hernandes RN RN jb4 Wilton Tripp RN RN Xuan Armenta Ashby, RN RN as6 Danica George MD MD sd2
[2021-09-26] MEDS ORDERED: predniSONE 20 MG TAB ONE (08:55)
[2021-09-26] MEDS ORDERED: ASPIRIN EC 81 MG TAB PO ONE (08:55)
[2021-09-26] MEDS ORDERED: BENZONATATE 100 MG CAP PO ONE (08:55)
[2021-09-26] MEDS ORDERED: FAMOTIDINE 20 MG TAB ONE (08:56)
[2021-09-26 09:28] VITALS: TEMP 98.2; O2SAT 100
[2021-09-26 09:31] VITALS: BP 158/67
== END 2021-09-26 09:23 | disposition home or self-care (01) ==
LOC: ER 06:02
DX: U07.1 COVID-19 (principal); J06.9 Acute upper respiratory infection, unspecified; E11.9 Type 2 diabetes mellitus without complications; I50.9 Heart failure, unspecified; F03.90 Unspecified dementia, unspecified severity, without behavioral disturbance, psychotic disturbance, mood disturbance, and anxiety; Z95.0 Presence of cardiac pacemaker; Z88.0 Allergy status to penicillin
CPT/HCPCS: 82947; 87804 ×2; 71046; U0003; J7512; 99283

== ENCOUNTER 2022-03-09 12:05 | Observation (INO) | payer OTHER ==
--- OUTSIDE RECORDS SUMMARY | 2022-03-09 12:12 | XMS REPORT | Continuity of Care Document ---
:1945 Author Organization [facility] t Address [address] [place] [address] Care Team Providers Name Role Phone Joyce VILLAGOMEZ, Nam Salazar Primary Care Physician Unavaila IAN Brennan Attending Clinician Unavailable Ian Doan MD Attending Clinician Michael Mancia MD Attending Clinician IAN DOAN Admitting Clinician Unavailable Payers Payer Name Policy Type Policy Number Effective Date Expiration Date S paula HUMANA PPO SELECT [id number] 2018 ASO 00:00:00 [employer] MEDICARE [id number] 2018 ADV 00:00:00 [facility] MEDICARE [id number] ADVANTAGE PPO-[facility] MEDIC[facility] [id number] ADVANTAGE PPO Problems Condition Condition Condition Status Onset Resolution Last Treating Co mments Source Name Details Category Date Date Treatment Clinician Date Increased Increased Disease Active [facility] BMI (body BMI (body 4-10 Janett ege mass mass 00:00: of index) index) 00 Medicin e Status Status Disease Active [facility] post post 03-17 College femorotibi femorotibi 00:00: of al bypass al bypass 00 Medi ed e 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 LEFT sp SFA stent occluded, occluded PT and Peroneal , patent AT PAD PAD Disease Active Overview: [facility] (periphera (periphera 5-15 LEFT sp C ollege l artery l artery 00:00: SFA stent of disease) disease) 00 occluded, Med icin (HCCode) (HCCode) occluded e PT and Peroneal , patent AT Essential Essential Disease Active [facility] hypertensi hypertensi 5-15 Co llege on on 00:00: of 00 Medicin e PAD PAD Disease Active [facility] (periphera (periphera 4-30 [facility] l artery l artery 00:00: Medica l disease) disease) 00 Center Pacemaker Pacemaker Disease Active Overview: [facility] 02-18 [facility] 00:00: g of this of note Medicin might be e different from the original. PPM MDT [id number] Dr Gonzalez CAD CAD Disease Active Overview: [facility] (coronary (coronary 02-18 [facility] C ollege artery artery 00:00: g of this of disease) disease) 00 note Medici n might be e different from the original. Non obstructi ve as per cath 2009 Cardiomyop Cardiomyop Disease Active Overview : [facility] athy, athy, 02-18 [facility] ischemic ischemic 00:00: g of this of note Medicin might be e different from the original. reported EF in the range 15% as of 2014 by TTE Hyperlipid Hyperlipid Disease Active [facility] aimee yu [place] of Medicin e Type 2 Type 2 Disease Active [facility] diabetes diabetes Colleg e mellitus mellitus of without without Medicin complicati complicati e on on (HCCode) (HCCode) Hypertensi Hypertensi Disease Active [facility] on on College of Medicin e Allergies, Adverse Reactions, Alerts Allergy Allergy Status Severity Reaction(s) Onset Inactive Treating Comm ents Source Name Type Date Date Clinician Penicill Propensi Active Hives May take [facility] to 4-10 by mouth. [facility] adverse 00:00: Has an Medical reaction [facility] P[facility]ILL Allergy Active H[facility] INS 4-10 00:00: 00 Social History Social Habit Start Date Stop Date Quantity Comments Source Exposure to Not sure [facility] Colleg e SARS-CoV-2 (event) of Med icine History SDOH [facility] Alcohol Std Drinks Medica l Center History SDOH [facility] Alcohol Binge Medical Christina ter History SDOH [facility] Alcohol Comment Medical C enter Alcohol intake 2020-01-20 2020-01-[address] [facility] 00:00:00 00:00:00 non-drinker of Medical Ce nter alcohol (finding) Tobacco use and 2018-05-28 2018-05-[address] [facility] [facility] exposure 00:00:00 00:00:00 Medical Center History SDOH 2018-05-28 2018-05-[address] [facility] Alcohol Frequency 00:00:00 00:00:00 Medical Center Sex Assigned At [address] 00:00:00 00:00:00 Medical Center Smoking Status Start Date Stop Date Source Never smoked tobacco [facility] Janett ege of Medicine Medications Ordered Filled Start Stop Current Ordering Indication Dosage Frequency Signature Comments Components Source Medication Medication Date Date Medication? Clinician (SIG) Name Name BABY Yes Take by [facility] ASPIRIN OR 1-12 mouth College 14:46: daily. of 23 Medicin e VITAMIN E Yes Take by [facility] [place] 1-12 mouth. College 14:46: of 23 Medicin e Ascorbic Yes Take by [facility] Acid 1-12 mouth. College (VITAMIN C 14:46: [...] memantine 2020-02 Yes 5mg Take 5 mg [facility] (NAMENDA) 5 2-06 by mouth Janett ege MG tablet 00:00: daily. of 00 Medicin e BABY 2019-02 Yes Take by [facility] ASPIRIN OR 2-16 mouth College 21:49: daily. of 25 Medicin e VITAMIN E 2019-02 Yes Take by [facility] OR 2-16 mouth. College 21:49: of 25 Medicin e Ascorbic 2019-02 Yes Take by [facility] Acid 2-16 mouth. [place] (VITAMIN C 21:49: of OR) 25 Medicin e clopidogrel 2019-02 Yes 75mg Take 1 [facility] (PLAVIX) 75 2-16 Tablet by Col lege MG Tablet 00:00: mouth of 00 daily. Medicin e gabapentin 2019-02 Yes 300mg Take 1 [facility] (NEURONTIN) 2-16 capsule by Co llege 300 MG 00:00: mouth 3 of capsule 00 times Medicin daily. e clopidogrel 2019-02 No 75mg Take 1 [facility] (PLAVIX) 75 2-16 -12 Tablet by Co llege MG Tablet 00:00: 00:00 mouth of 00 :00 daily. Medicin e gabapentin 2019-02 No 300mg Take 1 [facility] (NEURONTIN) 2-16 - capsule by C ollege 300 MG 00:00: [...] aylor en-codeine 2-07 -12 Tablet by Col [facility] (TYLENOL 00:00: 00:00 mouth of #3) 300-30 00 :00 every 6 Medici n MG per hours as e tablet needed for Pain. clopidogrel 2019-02 2020- No 75mg Take 1 [facility] (PLAVIX) 75 2-07 12-16 Tablet by Co llege MG Tablet 00:00: 00:00 mouth of 00 :00 daily. Medicin e insulin 2019-02 Yes 20U Inject 20 [facility] glargine 1-30 Units [facility] (LANTUS) 11:09: subcutaneo Med ical 100 unit/mL 02 usly as Cente r injection needed Use as directed . sacubitril- 2019-02 Yes 1{tbl} Q.5D Take [address] valsartan 1-30 tablet by [facility] (ENTRESTO) 11:09: mouth 2 Medi ava 24-26 mg 02 (two) Center Tab times daily. amiodarone 2019-02 Yes 200mg QD Take [address] (PACERONE) 1-30 mg by [facility] 200 MG 11:09: mouth Medical tablet 02 daily. [place] furosemide 2019-02 Yes 40mg QD Take [address] (LASIX) 40 1-30 by mouth [facility] MG tablet 11:09: daily. Medica l 02 [place] carvedilol 2019-02 Yes 6.25mg Take 6.[address] (COREG) 1-30 mg by [facility] 6.25 MG 11:09: mouth 2 Medical tablet 02 (two) Center times daily with breakfast and dinner. rosuvastati 2019-02 Yes 20mg QD Take [address] n (CRESTOR) 1-30 by mouth Luke s 20 MG 11:09: daily. Medical tablet 02 [place] aspirin 81 2019-02 Yes 81mg QD Take [address] MG EC 1-30 by mouth [facility] tablet 11:09: daily. Medical 02 [place] clopidogreL 2019-02 Yes 75mg QD Take [address] (PLAVIX) 75 1-30 by mouth Luke s mg tablet 11:09: daily. Medica l 02 [place] traMADoL 2019-02 Yes 50mg Q.5D Take [address] (ULTRAM) 50 1-14 by mouth 2 [facility] mg tablet 00:00: (two) Medical 00 times Center daily. tramadol 2019-02 Yes 50mg Take 50 mg [facility] (ULTRAM) 50 1-14 by mouth. Col lege MG tablet 00:00: of 00 Medicin e BABY 2020-1 Yes Take by [facility] ASPIRIN OR 0-07 mouth College 18:07: daily. of 00 Medicin e VITAMIN E 2020-1 Yes Take by [facility] OR 0-07 mouth. College 18:07: of 00 Medicin e Ascorbic 2020-1 Yes Take by [facility] Acid 0-07 mouth. College (VITAMIN C 18:07: of OR) 00 Medicin e VITAMIN E 2020-0 Yes Take by [facility] OR 7-08 mouth. College 16:07: of 30 Medicin e Ascorbic 2020-0 Yes Take by [facility] Acid 7-08 mouth. College (VITAMIN C 16:07: of OR) 30 Medicin e BABY 2020-0 Yes Take by [facility] ASPIRIN OR 7-08 mouth [place] 16:06: daily. of 52 Medicin e clopidogrel 2020-0 2020- No 75mg Take 1 Tab [facility] (PLAVIX) 75 7-08 10-07 by mouth Col lege MG Tablet 00:00: 04:59 daily for of 00 :00 90 days. Medicin e clopidogrel 2020-0 2020- No 75mg Take 1 Tab [facility] (PLAVIX) 75 6-05 07-08 by mouth Col [...] e DAILY Clopidogrel 2020-0 Yes Take by [facility] Bisulfate 4-08 mouth. College (PLAVIX OR) 16:06: of 03 Medicin e BABY 2020-0 Yes Take by [facility] ASPIRIN OR 4-08 mouth College 16:06: daily. of 03 Medicin e Clopidogrel 2020-0 Yes Take by [facility] Bisulfate 1-15 mouth. College (PLAVIX OR) 16:26: of 10 Medicin e BABY 2020-0 Yes Take by [facility] ASPIRIN OR 1-15 mouth [place] 16:26: daily. of 10 Medicin e Clopidogrel 2020-0 Yes Take by [facility] Bisulfate 1-15 mouth. College (PLAVIX OR) 16:26: of 10 Medicin e BABY 2020-0 Yes Take by [facility] ASPIRIN OR 1-15 mouth [place] 16:26: daily. of 10 Medicin e gabapentin 2020-0 Yes 300mg Take 1 Cap [facility] (NEURONTIN) 1-03 by mouth 3 Co llege 300 MG 00:00: times of capsule 00 daily. Medicin e gabapentin 2020-0 Yes 300mg Take 1 Cap [facility] (NEURONTIN) 1-03 by mouth 3 Co llege 300 MG 00:00: times of capsule 00 daily. Medicin e gabapentin 2020-0 Yes 300mg Take 1 Cap [facility] (NEURONTIN) 1-03 by mouth 3 Co llege 300 MG 00:00: times of capsule 00 daily. Medicin e acetaminoph 2018-02 2020- No 650mg Take 650 [facility] en 325 mg 1-29 11-24 mg by [place] tablet 00:00: 05:59 mouth. of 00 :00 Medicin e acetaminoph 2018-02 2020- No 650mg Take 650 [facility] en 325 mg 1-29 11-24 mg by [place] tablet 00:00: 05:59 mouth. of 00 :00 Medicin e acetaminoph 2018-02 2020- No 650mg Take 650 [facility] en 325 mg 1-29 11-24 mg by [place] tablet 00:00: 05:59 mouth. of 00 :00 Medicin e acetaminoph 2018-02 2020- No 650mg Take 650 [facility] en 325 mg 1-29 11-24 mg by [place] tablet 00:00: 05:59 mouth. of 00 :00 Medicin e acetaminoph 2018-02 2020- No 650mg Take 650 [facility] en 325 mg 1-29 11-24 mg by [place] tablet 00:00: 05:59 mouth. of 00 :00 Medicin e Clopidogrel Yes Take by [facility] Bisulfate 9-30 mouth. [place] (PLAVIX OR) 21:13: of 04 Medicin e BABY 2018-0 Yes Take by [facility] ASPIRIN OR 9-30 mouth [place] 21:13: daily. of 04 Medicin e rosuvastati Yes [facility] n (CRESTOR) 4-03 College 20 MG 00:00: of tablet 00 Medicin e acetaminoph Yes TK 1 T PO B aylor [...] MG per e tablet rosuvastati 2019-0 Yes [facility] n (CRESTOR) 4-03 College 20 MG 00:00: of tablet 00 Medicin e acetaminoph 2019-0 Yes TK 1 T PO B aylor en-codeine 4-03 QD. College (TYLENOL 00:00: of #3) 300-30 00 Medicin MG per e tablet rosuvastati 2019-0 Yes [facility] n (CRESTOR) 4-03 College 20 MG 00:00: of tablet 00 Medicin e acetaminoph 2019-0 Yes TK 1 T PO B aylor en-codeine 4-03 QD. College (TYLENOL 00:00: of #3) 300-30 00 Medicin MG per e tablet acetaminoph 2019-0 Yes TK 1 T PO B aylor en-codeine 4-03 QD. College (TYLENOL 00:00: of #3) 300-30 00 Medicin MG per e tablet rosuvastati 2019-0 Yes [facility] n (CRESTOR) 4-03 College 20 MG 00:00: of tablet 00 Medicin e rosuvastati 2019-0 Yes [facility] (CRESTOR) 4-03 College 20 MG 00:00: of tablet 00 Medicin e rosuvastati 2019-0 Yes [facility] n (CRESTOR) 4-03 College 20 MG 00:00: [...] of 00 Medicin e ENTRESTO 2019-0 Yes [facility] 24-26 MG 4-01 College TABS 00:00: of 00 Medicin e ENTRESTO 2019-0 Yes TK 1 T PO [facility] 24-26 MG 4-01 Q 12 H College TABS 00:00: of 00 Medicin e ENTRESTO 2019-0 Yes TK 1 T PO [facility] 24-26 MG 4-01 Q 12 H College TABS 00:00: of 00 Medicin e memantine 2019- Yes TK 1 T PO [facility] (NAMENDA) 3-28 BID College 10 MG 00:00: of tablet 00 Medicin e memantine 2019- Yes TK 1 T PO [facility] (NAMENDA) 3-28 BID College 10 MG 00:00: of tablet 00 Medicin e memantine 2019- Yes TK 1 T PO [facility] (NAMENDA) 3-28 BID College 10 MG 00:00: of tablet 00 Medicin e memantine 2019- Yes TK 1 T PO [facility] (NAMENDA) 3-28 BID College 10 MG 00:00: of tablet 00 Medicin e memantine 2019-0 Yes TK 1 T PO [facility] (NAMENDA) 3-28 BID College 10 MG 00:00: of tablet 00 Medicin e memantine 2019- Yes 10mg 10 mg [facility] (NAMENDA) 3-28 daily. College 10 MG 00:00: of tablet 00 Medicin e memantine 2019-0 Yes TK 1 T PO [facility] (NAMENDA) 3-28 BID College 10 MG 00:00: of tablet 00 Medicin e memantine 2018- Yes TK 1 T PO [facility] (NAMENDA) 3-28 BID College 10 MG 00:00: of tablet 00 Medicin e potassium Yes TK 1 T PO [facility] chloride SA 04-22 [facility] (K-DUR, 00:00: of KLOR-CON Medicin M20) 20 MEQ e tablet potassium Yes TK 1 T PO [facility] chloride SA 04-22 [facility] (K-DUR, 00:00: of KLOR-CON Medicin M20) 20 MEQ e tablet potassium Yes TK 1 T PO [facility] chloride SA 04-22 [facility] (K-DUR, 00:00: of KLOR-CON Medicin M20) 20 MEQ e tablet potassium Yes TK 1 T PO [facility] chloride SA 04-22 [facility] (KDUR, 00:00: of KLOR-CON Medicin M20) 20 MEQ e tablet potassium Yes TK 1 T PO [facility] chloride [address] [place] [address] (KDUR, 00:00: of KLOR-CON Medicin M20) 20 MEQ e tablet potassium Yes TK 1 T PO [facility] chloride SA 04-22 [facility] (KDUR, 00:00: of KLOR-CON Medicin M20) 20 MEQ e tablet potassium Yes TK 1 T PO [facility] chloride 04-22 [facility] (KDUR, 00:00: of KLOR-CON Medicin M20) 20 MEQ e tablet potassium 2021- No TK 1 T PO [facility] chloride SA 04-22 [facility] (KDUR, 00:00: 00:00 of KLOR-CON 00 :00 [...] 3-01 UNITS College injection 00:00: SUBCUTANEO of USLY D. Medicin e LANTUS 100 Yes INJECT 20 [facility] UNIT/ML 3-01 UNITS College injection 00:00: SUBCUTANEO of LY D. Medicin e LANTUS 100 Yes Inject [facility] UNIT/ML 3-01 into the College injection 00:00: skin. of Medicin e LANTUS 100 Yes INJECT 20 [facility] UNIT/ML 3-01 UNITS College injection 00:00: SUBCUTANEO of LY D. Medicin e LANTUS 100 Yes INJECT 20 [facility] UNIT/ML 3-01 UNITS College injection 00:00: SUBCUTANEO of LY [place]. Medicin e carvedilol Yes TK 1 T PO [facility] (COREG) 2-19 BID [facility] 6.25 MG 00:00: of tablet Medicin e carvedilol Yes TK 1 T PO [facility] (COREG) 2-19 BID [facility] 6.25 MG 00:00: of tablet Medicin e carvedilol Yes TK 1 T PO [facility] (COREG) 2-19 BID [facility] 6.25 MG 00:00: of tablet Medicin e carvedilol Yes TK 1 T PO [facility] (COREG) 2-19 BID [facility] 6.25 MG 00:00: of tablet Medicin e carvedilol Yes TK 1 T PO [facility] (COREG) 2-19 BID [facility] 6.25 MG 00:00: of tablet Medicin e carvedilol Yes TK 1 T PO [facility] (COREG) 2-19 BID [facility] 6.25 MG 00:00: of tablet 00 Medicin e carvedilol Yes TK 1 T PO [facility] (COREG) 2-19 BID [facility] 6.25 MG 00:00: of tablet 00 Medicin e carvedilol Yes TK 1 T PO [facility] (COREG) 2-19 BID [facility] 6.25 MG 00:00: of tablet 00 Medicin [...] 00:00: of tablet Medicin e amiodarone Yes 200mg 200 mg [...] cm Heart rate 2021-03-01 20:43:00 65 /min [facility] Body height 2021-03-01 20:43:00 152.4 cm [facility] Body weight 2021-03-01 20:43:00 97.523 kg [facility] BMI 2021-03-01 20:43:00 41.99 kg/m2 [facility] Systolic blood 2020-02-03 21:48:00 156 mm[Hg] [facility] pressure Medicine Diastolic blood 2020-02-03 21:48:00 73 mm[Hg] [facility] pressure Medicine Heart rate 2020-02-03 21:48:00 63 /min [facility] Body height 2020-02-03 21:48:00 152.4 cm [facility] C [facility]lege of Medicine Body weight 2020-02-03 21:48:00 97.523 kg [facility] C [facility]lege of Medicine BMI 2020-02-03 21:48:00 41.99 kg/m2 [facility] C ollege of Medicine Systolic blood 2020-02-03 21:48:00 156 mm[Hg] [facility] of pressure Medicine Diastolic blood 2020-02-03 21:48:00 73 mm[Hg] [facility] Medicine Heart rate 2020-02-03 21:48:00 63 /min [facility] C ollege of Medicine Body height 2020-02-03 21:48:00 152.4 cm [facility] C [facility]lege of Medicine Body weight 2020-02-03 21:48:00 97.523 kg [facility] C [facility]lege of Medicine BMI 2020-02-03 21:48:00 41.99 kg/m2 [facility] C [facility]lege of Medicine WEIGHT 2020-01-18 05:39:00 99.111 kg HEIGHT 2020-01-18 05:39:00 162.6 cm HEIGHT 2020-01-15 08:13:00 162.6 cm WEIGHT 2020-01-15 08:13:00 100.245 kg HEIGHT 2020-01-15 08:13:00 162.6 cm WEIGHT 2020-01-15 08:13:00 100.245 kg Systolic blood 2019-11-25 18:06:00 150 mm[Hg] [facility] of pressure Medicine Diastolic blood 2019-11-25 18:06:00 84 mm[Hg] [facility] of pressure Medicine Heart rate 2019-11-25 18:06:00 67 /min [facility] C [facility]lege of Medicine Body height 2019-11-25 18:06:00 162.6 cm [facility] C [facility]lege of Medicine Body weight 2019-11-25 18:06:00 81.647 kg [facility] C [facility]lege of Medicine BMI 2019-11-25 18:06:00 30.90 kg/m2 [facility] C ollege of Medicine Systolic blood 2019-11-25 18:06:00 150 mm[Hg] [facility] of pressure Medicine Diastolic blood 2019-11-25 18:06:00 84 mm[Hg] [facility] of pressure Medicine Heart rate 2019-11-25 18:06:00 67 /min [facility] of [facility] Body height 2019-11-25 18:06:00 162.6 cm [facility] of [facility] Body weight 2019-11-25 18:06:00 81.647 kg [facility] C [facility] of Medicine BMI 2019-11-25 18:06:00 30.90 kg/m2 [facility] C ollege of Medicine Systolic blood 2019-08-26 16:05:00 164 mm[Hg] [facility] of pressure Medicine Diastolic blood 2019-08-26 16:05:00 89 mm[Hg] [facility] of pressure Medicine Heart rate 2019-08-26 16:05:00 65 /min [facility] C ollege of Medicine Body height 2019-08-26 16:05:00 162.6 cm [facility] C [facility] of Medicine Body weight 2019-08-26 16:05:00 81.647 kg [facility] C [facility]lege of Medicine BMI 2019-08-26 16:05:00 30.90 kg/m2 [facility] C [facility]lege of Medicine Systolic blood 2019-08-26 16:05:00 164 mm[Hg] [facility] College of pressure Medicine Diastolic blood 2019-08-26 16:05:00 89 mm[Hg] [facility] of pressure Medicine Heart rate 2019-08-26 16:05:00 65 /min [facility] C [facility]lege of Medicine Body height 2019-08-26 16:05:00 162.6 cm [facility] C [facility] of Medicine Body weight 2019-08-26 16:05:00 81.647 kg [facility] C [facility] of Medicine BMI 2019-08-26 16:05:00 30.90 kg/m2 [facility] C [facility] of Medicine Systolic blood 2019-05-27 16:05:00 167 mm[Hg] [facility] of pressure Medicine Diastolic blood 2019-05-27 16:05:00 90 mm[Hg] [facility] of pressure Medicine Heart rate 2019-05-27 16:05:00 60 /min [facility] C [facility] of Medicine Body height 2019-05-27 16:05:00 162.6 cm [facility] C [facility] of Medicine Body weight 2019-05-27 16:05:00 81.647 kg [facility] C [facility] of Medicine BMI 2019-05-27 16:05:00 30.90 kg/m2 [facility] C [facility] of Medicine Systolic blood 2019-05-27 16:05:00 167 mm[Hg] [facility] of pressure Medicine Diastolic blood 2019-05-27 16:05:00 90 mm[Hg] [facility] of pressure Medicine Heart rate 2019-05-27 16:05:00 60 /min [facility] C [facility]lege of Medicine Body height 2019-05-27 16:05:00 162.6 cm [facility] C [facility] of Medicine Body weight 2019-05-27 16:05:00 81.647 kg [facility] C [facility] of Medicine BMI 2019-05-27 16:05:00 30.90 kg/m2 [facility] C ollege of Medicine Systolic blood 2019-03-18 15:08:00 135 mm[Hg] [facility] of pressure Medicine Diastolic blood 2019-03-18 15:08:00 68 mm[Hg] [facility] pressure Medicine Heart rate 2019-03-18 15:08:00 60 /min [facility] C [facility] of Medicine Body weight 2019-03-18 15:08:00 96.616 kg [facility] C [facility] of Medicine BMI 2019-03-18 15:08:00 36.56 kg/m2 [facility] C [facility] of Medicine Systolic blood 2019-03-18 15:08:00 135 mm[Hg] [facility] of pressure Medicine Diastolic blood 2019-03-18 15:08:00 68 mm[Hg] [facility] of pressure Medicine Heart rate 2019-03-18 15:08:00 60 /min [facility] C [facility] of Medicine Body weight 2019-03-18 15:08:00 96.616 kg [facility] C [facility] of Medicine BMI 2019-03-18 15:08:00 36.56 kg/m2 [facility] C [facility] of Medicine Body weight 2019-03-04 16:25:00 104.327 kg [facility] BMI 2019-03-04 16:25:00 39.48 kg/m2 [facility] C [facility] of Medicine Body weight 2019-03-04 16:25:00 104.327 kg [facility] C [facility] of Medicine BMI 2019-03-04 16:25:00 39.48 kg/m2 [facility] Systolic blood 2018-11-17 21:24:00 140 mm[Hg] [facility] pressure Medicine Diastolic blood 2018-11-17 21:24:00 80 mm[Hg] [facility] pressure Medicine Heart rate 2018-11-17 21:24:00 63 /min [facility] ollege of Medicine Body height 2018-11-17 21:11:00 162.6 cm [facility] ollege of Medicine Body weight 2018-11-17 21:11:00 102.967 kg [facility] ollege of Medicine BMI 2018-11-17 21:11:00 38.96 kg/m2 [facility] ollege of Medicine Systolic blood 2018-11-17 21:24:00 140 mm[Hg] [facility] of pressure Medicine Diastolic blood 2018-11-17 21:24:00 80 mm[Hg] [facility] of pressure Medicine Heart rate 2018-11-17 21:24:00 63 /min [facility] ollege of Medicine Body height 2018-11-17 21:11:00 162.6 cm [facility] ollege of Medicine Body weight 2018-11-17 21:11:00 102.967 kg [facility] ollege of Medicine BMI 2018-11-17 21:11:00 38[facility]96 [facility] Procedure Date / Time Performing Clinician Source Performed ELECTROCARDIOGRAM COMPLETE 2018-11-17 22:58:11 Michael Mancia [facility] Plan of Care Planned Activity Planned Date Details Comments Source Future Scheduled 2022-02-[address] [facility] Test 00:00:00 (12+) [code = [facility] Center DEPRESSION SCREENING (12+)] Future Scheduled 2022-02-18 F[place]S [address]ISK SCREENING [facility] Test 00:00:00 [code = [place]ALL[place] RISK Medical C enter SCREENING] Future Scheduled 2021-10-[address] [facility] Test 00:00:00 (#1) [code = [facility] Center INFLUENZA VACCINE (#1)] Future Scheduled 2021-03-03 Screening for [facility] Test 09:26:26 malignant neoplasm of Medici ne of colon (procedure) [code = 920633355] Future Scheduled 2021-03-03 Screening for [facility] Col lege Test 09:26:26 malignant neoplasm of Medici ne of breast (procedure) [code = [id number]] Future Scheduled 2021-03-03 Pneumococcal 65+ (1 [facility] Test 09:26:26 of 2 - PPSV23) [code of Medi cine = Pneumococcal 65+ (1 of 2 - PPSV23)] Future Scheduled 2021-03-03 COVID-19 Vaccine (1) [employer] [facility] 09:26:26 [code = COVID-19 of Medicine Vaccine (1)] Future Scheduled 2021-03-03 TETANUS SHOT (ADULT) [employer] Test 09:26:26 [code = TETANUS SHOT of Medi cine (ADULT)] Future Scheduled 2021-03-03 Diabetic foot [facility] [employer] Test 09:26:26 examination of Medicine (regime/therapy) [code = 735579219] Future Scheduled 2021-03-03 ANNUAL DIABETIC [facility] [employer] Test 09:26:26 RETINOPATHY of Medicine SCREENING [code = ANNUAL DIABETIC RETINOPATHY SCREENING] Future Scheduled 2021-03-03 Hepatitis C [facility] [employer] Test 09:26:26 screening of Medicine (procedure) [code = 025446884] Future Scheduled 2021-03-03 ZOSTER VACCINE (1 of [employer] Test 09:26:26 2) [code = ZOSTER of Medicin e VACCINE (1 of 2)] Future Scheduled 2021-03-03 Screening for [facility] [employer] Test 09:26:26 osteoporosis of Medicine (procedure) [code = 539754917] Future Scheduled 2021-03-03 MEDICARE AWV [facility] [employer] Test 09:26:26 (Initial) [code = of Medicin e MEDICARE AWV (Initial)] Future Scheduled 2021-03-03 BMI FOLLOW UP PLAN [employer] Test 09:26:26 [code = BMI FOLLOW of Medici ne UP PLAN] Future Scheduled 2021-03-03 FLU VACCINE > 6 [facility] [employer] Test 09:26:26 MONTHS [code = FLU of Medici ne VACCINE > 6 MONTHS] Future Scheduled 2021-03-03 FALL SCREEN [code = [employer] Test 09:26:26 FALL SCREEN] of Medicine Future Scheduled 2021-03-01 US ARTERIAL LEG LEFT 1 Occurrences [employer] Test 14:57:35 [code = 25048] starting of Medicine 03/01/2021 until 03/01/2022 Future Scheduled 2021-01-[address] [facility] Test 00:00:00 Counseling and Medical Cente r Screening (12+) [code = Tobacco Cessation Counseling and Screening (12+)] Future Scheduled 2019-02-[address] [facility] Test 00:00:00 WELLNESS (YEAR 2 or Medical Center FIRST YEAR if no IPPE) [code = MEDICARE ANNUAL WELLNESS (YEAR 2 or FIRST YEAR if no IPPE)] Future Scheduled 2017-06-01 PNEUMOCOCCAL 65+ YRS [facility] Test 00:00:00 (2 - PCV) [code = Medical Ce nter PNEUMOCOCCAL 65+ YRS (2 - PCV)] Future Scheduled 1996 SHINGLES VACCINES ([address] [facility] Test 00:00:00 of 2) [code = Medical Center SHINGLES VACCINES (1 of 2)] Future Scheduled 1965 DTAP/TDAP/TD [facility] Test 00:00:00 VACCINES (1 - Tdap) [facility] Center [code = DTAP/TDAP/TD VACCINES (1 - Tdap)] Future Scheduled [address] [facility] Test 00:00:00 SCREENING [code = Medical Ce nter HEPATITIS C SCREENING] Future Scheduled 1947-03-14 COVID-[address] [facility] Test 00:00:00 (#1) [code = Medical Center COVID-19 VACCINE (#1)] Future Scheduled [address] [facility] Test 00:00:00 (combo) [code = CT Medical C enter Colonography (combo)] Future Scheduled [address] [facility] Test 00:00:00 malignant neoplasm Medical C enter of colon (procedure) [code = 237233358] Future Scheduled [address] [facility] Test 00:00:00 malignant neoplasm Medical C enter of colon (procedure) [code = 372640264] Future Scheduled 1946 DXA SCAN [code = DXA [facility] Test 00:00:00 SCAN] Medical Center Future Scheduled [address] [facility] Test 00:00:00 malignant neoplasm Medical C enter of colon (procedure) [code = 178983288] Future Scheduled [address] [facility] Test 00:00:00 malignant neoplasm Medical C enter of colon (procedure) [code = 641515788] Future Scheduled 1946 Sigmoidoscopy [code [facility] Test 00:00:00 = Sigmoidoscopy] Medical [facility] Future Scheduled BMI FOLLOW UP PLAN [employer] Test [code = BMI FOLLOW of Medici ne UP PLAN] Future Scheduled HEPATITIS C [facility] [employer] [facility] SCREENING [code = of Medicin e HEPATITIS C SCREENING] Future Scheduled FALL SCREEN [code = [employer] FALL SCREEN] of Medicine Future Scheduled OSTEOPOROSIS [facility] [employer] Test SCREENING [code = of Medicin e OSTEOPOROSIS SCREENING] Future Scheduled PNEUMOVAX >=65 [facility] [employer] Test (PPSV23) [code = of Medicine PNEUMOVAX >=65 (PPSV23)] Future Scheduled PREVNAR >= 65 [facility] [employer] Test (PCV13) [code = of Medicine PREVNAR >= 65 (PCV13)] Future Scheduled MEDICARE AWV [facility] [employer] Test (Initial) [code = of Medicin e MEDICARE AWV (Initial)] Future Scheduled FLU VACCINE > 6 [facility] [employer] Test MONTHS [code = FLU of Medici ne VACCINE > 6 MONTHS] Future Scheduled COLON CANCER [facility] [employer] Test SCREENING: of Medicine COLONOSCOPY [code = COLON CANCER SCREENING: COLONOSCOPY] Future Scheduled MAMMOGRAM ANNUAL [facility] Test [code = MAMMOGRAM of Medicin e ANNUAL] Future Scheduled TETANUS SHOT (ADULT) [facility] Test [code = TETANUS SHOT of Medi cine (ADULT)] Future Scheduled Diabetic foot [facility] [employer] Test examination of Medicine (regime/therapy) [code = 809183666] Future Scheduled ANNUAL DIABETIC [facility] [employer] Test RETINOPATHY of Medicine SCREENING [code = ANNUAL DIABETIC RETINOPATHY SCREENING] Future Scheduled HEPATITIS C [facility] [employer] Test SCREENING [code = of Medicin e HEPATITIS C SCREENING] Future Scheduled FALL SCREEN [code = [employer] FALL SCREEN] of Medicine Future Scheduled OSTEOPOROSIS [facility] [employer] [facility] SCREENING [code = of Medicin e OSTEOPOROSIS SCREENING] Future Scheduled PNEUMOVAX >=65 [facility] [employer] Test (PPSV23) [code = of Medicine PNEUMOVAX >=65 (PPSV23)] Future Scheduled PREVNAR >= 65 [facility] [employer] Test (PCV13) [code = of Medicine PREVNAR >= 65 (PCV13)] Future Scheduled MEDICARE AWV [facility] [employer] Test (Initial) [code = of Medicin e MEDICARE AWV (Initial)] Future Scheduled FLU VACCINE > 6 [facility] [employer] Test MONTHS [code = FLU of Medici ne VACCINE > 6 MONTHS] Future Scheduled BMI FOLLOW UP PLAN [employer] Test [code = BMI FOLLOW of Medici ne UP PLAN] Future Scheduled COLON CANCER [facility] [employer] [facility] SCREENING: of Medicine COLONOSCOPY [code = COLON CANCER SCREENING: COLONOSCOPY] Future Scheduled MAMMOGRAM ANNUAL [facility] Test [code = MAMMOGRAM of Medicin e ANNUAL] Future Scheduled TETANUS SHOT (ADULT) [employer] [facility] [code = TETANUS SHOT of Medi cine (ADULT)] Future Scheduled Diabetic foot [facility] [employer] Test examination of Medicine (regime/therapy) [code = 862032999] Future Scheduled ANNUAL DIABETIC [facility] [employer] Test RETINOPATHY of Medicine SCREENING [...] ne UP PLAN] Future Scheduled COLON CANCER [facility] [employer] Test SCREENING: of Medicine COLONOSCOPY [code = COLON CANCER SCREENING: COLONOSCOPY] Future Scheduled MAMMOGRAM ANNUAL [facility] Test [code = MAMMOGRAM of Medicin e ANNUAL] Future Scheduled TETANUS SHOT (ADULT) [employer] [facility] [code = TETANUS SHOT of Medi cine (ADULT)] Future Scheduled Diabetic foot [facility] [employer] Test examination of Medicine (regime/therapy) [code = 904806318] Future Scheduled ANNUAL DIABETIC [facility] [employer] Test RETINOPATHY of Medicine SCREENING [code = ANNUAL DIABETIC RETINOPATHY SCREENING] Future Scheduled HEPATITIS C [facility] [employer] [facility] SCREENING [code = of Medicin e HEPATITIS C SCREENING] Future Scheduled ZOSTER VACCINE (1 of [employer] Test 2) [code = ZOSTER [...] ne UP PLAN] Future Scheduled COLON CANCER [facility] [employer] Test SCREENING: of Medicine COLONOSCOPY [code = COLON CANCER SCREENING: COLONOSCOPY] Future Scheduled MAMMOGRAM ANNUAL [facility] Test [code = MAMMOGRAM of Medicin e ANNUAL] Future Scheduled TETANUS SHOT (ADULT) [employer] Test [code = TETANUS SHOT of Medi cine (ADULT)] Future Scheduled Diabetic foot [facility] [employer] Test examination of Medicine (regime/therapy) [code = 615658543] Future Scheduled ANNUAL DIABETIC [facility] [employer] Test RETINOPATHY of Medicine SCREENING [code = ANNUAL DIABETIC RETINOPATHY SCREENING] Future Scheduled HEPATITIS C [facility] [employer] Test SCREENING [code = of Medicin e HEPATITIS C SCREENING] Future Scheduled ZOSTER VACCINE (1 of [employer] Test 2) [code = ZOSTER of Medicin e VACCINE (1 of 2)] Future Scheduled FALL SCREEN [code = [employer] FALL SCREEN] of Medicine Future Scheduled OSTEOPOROSIS [facility] [employer] Test SCREENING [code = of Medicin e OSTEOPOROSIS SCREENING] Future Scheduled MEDICARE AWV [facility] [employer] Test (Initial) [code = of Medicin e MEDICARE AWV (Initial)] Future Scheduled FLU VACCINE > 6 [facility] [employer] Test MONTHS [code = FLU of Medici ne VACCINE > 6 MONTHS] Future Scheduled BMI FOLLOW UP PLAN [employer] Test [code = BMI FOLLOW of Medici ne UP PLAN] Future Scheduled COLON CANCER [facility] [employer] Test SCREENING: of Medicine COLONOSCOPY [code = COLON CANCER SCREENING: COLONOSCOPY] Future Scheduled MAMMOGRAM ANNUAL [facility] Test [code = MAMMOGRAM of Medicin e ANNUAL] Future Scheduled MEDICARE AWV [code = [employer] MEDICARE AWV] of Medicine Future Scheduled TETANUS SHOT (ADULT) [employer] Test [code = TETANUS SHOT [...] FALL SCREEN] of Medicine Future Scheduled OSTEOPOROSIS [facility] [employer] Test SCREENING [code = of [...] > 6 MONTHS] Future Scheduled COLON CANCER [facility] [employer] Test SCREENING: of Medicine COLONOSCOPY [code = COLON CANCER SCREENING: COLONOSCOPY] Future Scheduled MAMMOGRAM ANNUAL [facility] Test [code = MAMMOGRAM of Medicin e ANNUAL] Future Scheduled TETANUS SHOT (ADULT) [employer] Test [code = TETANUS SHOT of Medi cine (ADULT)] Future Scheduled Diabetic foot [facility] [employer] Test examination of Medicine (regime/therapy) [code = 902503401] Future Scheduled ANNUAL DIABETIC [facility] [employer] Test RETINOPATHY of Medicine SCREENING [code = ANNUAL DIABETIC RETINOPATHY SCREENING] Future Scheduled BMI FOLLOW UP PLAN [facility] College Test [code = BMI FOLLOW of Medici ne UP PLAN] Future Scheduled HEPATITIS C [facility] [employer] Test SCREENING [code = of Medicin e HEPATITIS C SCREENING] Future Scheduled FALL SCREEN [code = [employer] FALL SCREEN] of Medicine Future Scheduled OSTEOPOROSIS [facility] [employer] Test SCREENING [code = of Medicin e OSTEOPOROSIS SCREENING] Future Scheduled PNEUMOVAX >=65 [facility] [employer] Test (PPSV23) [code = of Medicine PNEUMOVAX >=65 (PPSV23)] Future Scheduled PREVNAR >= 65 [facility] [employer] Test (PCV13) [code = of Medicine PREVNAR >= 65 (PCV13)] Future Scheduled MEDICARE AWV [facility] [employer] [employer] Test (Initial) [code = of Medicin e MEDICARE AWV (Initial)] Future Scheduled FLU VACCINE > 6 [facility] [employer] Test MONTHS [code = FLU of Medici ne VACCINE > 6 MONTHS] Future Scheduled COLON CANCER [facility] [employer] Test SCREENING: of Medicine COLONOSCOPY [code = COLON CANCER SCREENING: COLONOSCOPY] Future Scheduled MAMMOGRAM ANNUAL [facility] Test [code = MAMMOGRAM of Medicin e ANNUAL] Future Scheduled TETANUS SHOT (ADULT) [facility] Test [code = TETANUS SHOT of Medi cine (ADULT)] Future Scheduled Diabetic foot [facility] [employer] Test examination of Medicine (regime/therapy) [code = 303240869] Future Scheduled ANNUAL DIABETIC [facility] [employer] Test RETINOPATHY of Medicine SCREENING [code = ANNUAL DIABETIC RETINOPATHY SCREENING] Future Scheduled US ARTERIAL LEG LEFT 1 Occur[facility] [employer] Test [code = 58117] starting of Medicine 02/03/2020 until 09/02/2020 Future Scheduled US ARTERIAL LEG LEFT 1 Occur[facility] [employer] Test [code = 08445] starting of Medicine 11/25/2019 until 06/24/2020 Future Scheduled US ARTERIAL LEG LEFT 1 Occur[facility] [employer] Test [code = 52299] starting of Medicine 05/27/2019 until 12/27/2019 Encounters Start End Encounter Admission Attending Care Care Encounter Source Date/Time Date/Time Type Type Clinicians Facility Department ID 2020-11-25 Outpatient MIO DOAN Surgery [id number] [facility] 17:23:10 IAN 2021-03-01 2021-03-01 Outpatient [facility] [id number] [facility] 12:23:45 15:02:33 Colleg e of Medicin e 2021-03-01 2021-03-01 Office KWAME Doan 1.2.840.114 [id number] [facility] 14:15:00 15:02:27 Visit Jayer AMBULATOR 350.1.13.21 College Y 0.2.7.2.686 of [id number] [facility] ed 825 e 2020-02-03 2020-02-03 Office KWAME Doan 1.2.840.114 [id number] [facility] 14:42:26 17:03:39 Visit Jayer AMBULATOR 350.1.13.21 College Y 0.2.7.2.686 of [id number] [facility] ed 825 e 2020-02-03 2020-02-03 Office KWAME Doan 1.2.840.114 [id number] 14:42:26 17:03:39 Visit Jayer AMBULATOR 350.1.13.21 Y 0.2.7.2.686 [id number] [facility] 2020-01-15 2020-01-15 Outpatient [facility] SLE [id number] SLE 00:00:00 00:00:00 2019-11-25 2019-11-25 Office KWAME Doan 1.2.840.[id number] [place] [address] 09:56:31 16:38:39 Visit Jayer AMBULATOR 350.1.13.21 College Y 0.2.7.2.686 of [id number] [facility] 825 e 2019-11-25 2019-11-25 Office KWAME Doan 1.2.840.114 [id number] 09:56:31 16:38:39 Visit Jayer AMBULATOR 350.1.13.21 Y 0.2.7.2.686 [id number] [facility] 2019-08-26 2019-08-26 Office KWAME Doan 1.2.840.[id number] [place] [address] 09:32:20 11:46:44 Visit Jayer AMBULATOR 350.1.13.21 College Y 0.2.7.2.686 of [id number] [facility] 825 e 2019-08-26 2019-08-26 Office KWAME Doan 1.2.840.114 [id number] 09:32:20 11:46:44 Visit Jayer AMBULATOR 350.1.13.21 Y 0.2.7.2.686 [id number] [facility] 2019-05-27 2019-05-27 Office KWAME Doan 1.2.840.[id number] [place] [address] 09:13:18 12:39:17 Visit Jayer AMBULATOR 350.1.13.21 College Y 0.2.7.2.686 of [id number] [facility] 825 e 2019-05-27 2019-05-27 Office KWAME Doan 1.2.840.114 [id number] 09:13:18 12:39:17 Visit Jayer AMBULATOR 350.1.13.21 Y 0.2.7.2.686 [id number] [facility] 2019-03-18 2019-03-18 Office KWAME Doan 1.2.840.[id number] [place] [address] 08:40:49 09:39:44 Visit Jayer AMBULATOR 350.1.13.21 College Y 0.2.7.2.686 of [id number] [facility] ed 825 e 2019-03-18 2019-03-18 Office KWAME Doan 1.2.840.114 [id number] 08:40:49 09:39:44 Visit Jayer AMBULATOR 350.1.13.21 Y 0.2.7.2.686 [id number] 2019-03-04 2019-03-04 Office KWAME Doan 1.2.840.[id number] [place] [address] 09:20:10 11:54:55 Visit Jayer AMBULATOR 350.1.13.21 College Y 0.2.7.2.686 of [id number] [facility] 820 e 2019-03-04 2019-03-04 Office KWAME Doan 1.2.840.114 [id number] 09:20:10 11:54:55 Visit Jayer AMBULATOR 350.1.13.21 Y 0.2.7.2.686 [id number] 2018-11-17 2018-11-17 Office Michael Mancia 1.2.840.114 [id number] [facility] 15:58:42 16:43:42 Visit AMBULATOR 350.1.13.21 College Y 0.2.7.2.686 of [id number] [facility] 300 e 2018-11-17 2018-11-17 Office Michael Mancia 1.2.840.114 [id number] 15:58:42 16:43:42 Visit AMBULATOR 350.1.13.21 Y 0.2.7.2.686 [id number] Results Test Description Test Time Test Comments Results Result Comments Source POCT-GLUCOSE METER 2020-01-18 09:24:00 Test Item Value Reference Range Interpretation Comme [facility] POC-GLUCOSE METER (BEAKER) 145 mg/dL 70-110 H : TESTED AT [facility] [address] [facility] (test code = 1538) BRIAN Paul [address]2207: Rn Examiner/Techni charo ID = [id number] for MARLIU MIRANDA SARS-COV2/RT-PCR ([facility])2020-01-15 14:45:00 Test Item Value Reference Range Interpretation Comments SARS-COV2/RT-PCR (test Negative Not Detected, Negative, code = 0495055) See external report for linked test SARS-COV-2 PERFORMING LAB [facility] [place] (test code = 0431180) Negative result for this test determines that [...] of the Act.Fact Sheet for Healthcare Prov iders:https://www.[employer]sites/default/files/product/documents/Fact_Sheet_HC _Cklafxljq_Aawk_HSLO-MtM-0.pdfFact Sheet for Healthcare Patients:https://www.[employer]sites/default/files/product/docume nts/Osys_Kvfpq_Wazlsgwm_Pzid_SSOS-KbD-5.pdfPerforming Laboratory:[facility], [place] [address]YFIR-KMLHSND METER 2019-01-16 11:39:00 Test Item Value Reference Range Interpretation Comments POC-GLUCOSE METER 100 mg/dL 70-110 : TESTED A T [facility] 6720 (BEAKER) (test code = JOSE G James [place], 1538) 09476: Rn Examiner/Techni charo ID = [id number] for BOZENA GEORGE CBC W/PLT COUNT & AUTO [id number] 10:30:00 Test Item Value Reference Range Interpretation [...] 3438) Received comment: User comments: Slide comments:POCT-GLUCOSE [id number] 08:27:00 Test Item Value Reference Range Interpretation Comments POC-GLUCOSE METER 90 mg/dL 70-110 : TESTED A T [facility] 6720 (BEAKER) (test code = JOSE G [place], 1538) 49090: Rn Examiner/Techni charo ID = [id number] for BOZENA GOLDBERG BASIC METABOLIC [id number] 05:15:00 Test Item Value Reference Range Interpretation [...] NOT APPLICABLE FOR DIALYSIS PATIEN TS. POCT-GLUCOSE [id number] 20:27:00 Test Item Value Reference Range Interpretation Comments POC-GLUCOSE METER 119 mg/dL 70-110 H : TESTED A T [facility] 6720 (BEAKER) (test code = [facility], 1538) 77471: Rn Examiner/Techni charo ID = [id number] for Go Inocente peterse POCT-GLUCOSE [id number] 17:11:00 Test Item Value Reference Range Interpretation Comments POC-GLUCOSE METER 122 mg/dL 70-110 H : TESTED A T [facility] 6720 (BEAKER) (test code = [facility] [email or web address] [facility], 1538) 14321: Rn Examiner/Techni charo ID = [id number] for Ec at, Cecella POCT-GLUCOSE [id number] 13:01:00 Test Item Value Reference Range Interpretation Comments POC-GLUCOSE METER 113 mg/dL 70-110 H : TESTED A T [facility] 6720 (BEAKER) (test code = [facility], 1538) 93831: Rn Examiner/Techni charo ID = [id number] for NICO LEANN ANA POCT-GLUCOSE [id number] 08:45:00 Test Item Value Reference Range Interpretation Comments POC-GLUCOSE METER 98 mg/dL 70-110 : TESTED A T [facility] 6720 (BEAKER) (test code = [facility], 1538) 54176: Rn Examiner/Techni charo ID = [id number] for ANA GAGNON POCT-GLUCOSE [id number] 21:07:00 Test Item Value Reference Range Interpretation Comments POC-GLUCOSE METER 84 mg/dL 70-110 : TESTED A T [facility] 6720 (BEAKER) (test code = [facility], [facility]8) 91478: Rn Examiner/Techni charo ID = [id number] for Pk Hammonds POCT-GLUCOSE [id number] 16:47:00 Test Item Value Reference Range Interpretation Comments POC-GLUCOSE METER 108 mg/dL 70-110 : TESTED A T [facility] 6720 (BEAKER) (test code = [facility], [facility]) 43506: Rn Examiner/Techni charo ID = [id number], Hiwitha POCT-GLUCOSE [id number] 15:12:00 Test Item Value Reference Range Interpretation Comments POC-GLUCOSE METER 118 mg/dL 70-110 H : TESTED A T [facility] 6720 (BEAKER) (test code = [facility], [facility]) 10750: Rn Examiner/Techni charo ID = [id number] for DA VIS, RODGER POCT-GLUCOSE [id number] 15:04:00 Test Item Value Reference Range Interpretation Comments POC-GLUCOSE METER 127 mg/dL 70-110 H : TESTED A T [facility] 6720 (BEAKER) (test code = [facility], [facility]) 44950: Rn Examiner/Techni charo ID = [id number] for HU NTER, HIWITHA POCT-GLUCOSE [id number] 14:34:00 Test Item Value Reference Range Interpretation Comments POC-GLUCOSE METER 89 mg/dL 70-110 : TESTED A T [facility] 6720 (BEAKER) (test code = [facility], [facility]) 63325: Rn Examiner/Techni charo ID = [id number] for BATEMAN ER, HIWITHA POCT-GLUCOSE [id number] 13:53:00 Test Item Value Reference Range Interpretation Comments POC-GLUCOSE METER 137 mg/dL 70-110 H : TESTED A T [facility] 6720 (BEAKER) (test code = [facility], 1538) 30253: Rn Examiner/Techni charo ID = [id number] for Cici Isaacs POCT-GLUCOSE [id number] 12:44:00 Test Item Value Reference Range Interpretation Comments POC-GLUCOSE METER 125 mg/dL 70-110 H : TESTED A T [facility] 6720 (BEAKER) (test code = [facility], 1538) 17689: Rn Examiner/Techni charo ID = [id number] for OC CRUZ POCT-GLUCOSE [id number] 08:33:00 Test Item Value Reference Range Interpretation Comments POC-GLUCOSE METER 112 mg/dL 70-110 H : TESTED A T [facility] 6720 (BEAKER) (test code = [facility], 1538) 62758: Rn Examiner/Techni charo ID = [id number] for ANA PALACIO POCT-GLUCOSE [id number] 07:56:00 Test Item Value Reference Range Interpretation Comments POC-GLUCOSE METER 96 mg/dL 70-110 : TESTED A T [facility] 6720 (BEAKER) (test code = [facility], 1538) 97149: Rn Examiner/Techni charo ID = [id number] for Compa alcantar Danica BASIC METABOLIC [id number] 07:07:00 Test Item Value Reference Range Interpretation [...] PATIEN TS. CBC W/PLT COUNT & AUTO [id number] 06:52:00 Test Item Value Reference Range Interpretation [...] PERCENT (BEAKER) (test code = 2801) POCT-GLUCOSE [id number] 21:36:00 Test Item Value Reference Range Interpretation Comments POC-GLUCOSE METER 143 mg/dL 70-110 H : TESTED A T [facility] 6720 (BEAKER) (test code = [facility], 1538) 04983: Rn Examiner/Techni charo ID = [id number] for DA VIS, RODGER POCT-GLUCOSE [id number] 19:20:00 Test Item Value Reference Range Interpretation Comments POC-GLUCOSE METER 117 mg/dL 70-110 H : TESTED A T [facility] 6720 (BEAKER) (test code = [facility], 1538) 23303: Rn Examiner/Techni charo ID = [id number] for DA VIS, RODGER POCT-GLUCOSE [id number] 09:30:00 Test Item Value Reference Range Interpretation Comments POC-GLUCOSE METER 100 mg/dL 70-110 : TESTED A T [facility] 6720 (BEAKER) (test code = [facility], 1538) 21215: Rn Examiner/Techni charo ID = [id number] for NICO ANA NORIEGA BASIC METABOLIC [id number] 05:18:00 Test Item Value Reference Range Interpretation [...] PATIEN TS. CBC W/PLT COUNT & AUTO [id number] 04:37:00 Test Item Value Reference Range Interpretation [...] PERCENT (BEAKER) (test code = 2801) POCT-GLUCOSE [id number] 20:59:00 Test Item Value Reference Range Interpretation Comments POC-GLUCOSE METER 95 mg/dL 70-110 : TESTED A T [facility] 6720 (BEAKER) (test code = [facility], 1538) 75965: Rn Examiner/Techni charo ID = [id number] for WALE Suárez RODGER POCT-GLUCOSE [id number] 17:08:00 Test Item Value Reference Range Interpretation Comments POC-GLUCOSE METER 90 mg/dL 70-110 : TESTED A T [facility] 6720 (BEAKER) (test code = [facility], 1538) 27402: Rn Examiner/Techni charo ID = [id number] for BELLE CHAPA POCT-GLUCOSE [id number] 12:10:00 Test Item Value Reference Range Interpretation Comments POC-GLUCOSE METER 118 mg/dL 70-110 H : TESTED A T [facility] 6720 (BEAKER) (test code = [facility], 1538) 80145: Rn Examiner/Techni charo ID = [id number] for BELLE G[place]FFITH[place] U/S, RENAL, [id number] 10:37:00Reason for exam:->ckdFINAL REPORT TECHNIQUE: Grayscale ultrasound [...] MDReport Verified Date/Time: 01/11/2019 10:37:05 Reading Location: [facility] B1 C013Y CT Body Reading Room POCT- GLUCOSE [id number] 09:22:00 Test Item Value Reference Range Interpretation Comments POC-GLUCOSE METER 75 mg/dL 70-110 : TESTED A T [facility] 6720 (BEAKER) (test code = JOSE G T[place], 1538) 64760: Rn Examiner/Techni charo ID = [id number] for ROBE DRISCOLLWITHA [id number] 04:57:00 Test Item Value Reference Range Interpretation Comments PHOSPHORUS (BEAKER) (test code = 2.8 mg/dL 2.3-4.7 604) [id number] 04:57:00 Test Item Value Reference Range Interpretation Comments MAGNESIUM (BEAKER) (test code = 1.9 mg/dL 1.6-2.6 627) BASIC METABOLIC [id number] 04:57:00 Test Item Value Reference Range Interpretation [...] PATIEN TS. CBC W/PLT COUNT & AUTO [id number] 04:32:00 Test Item Value Reference Range Interpretation [...] PERCENT (BEAKER) (test code = 2801) POCT-GLUCOSE [id number] 22:26:00 Test Item Value Reference Range Interpretation Comments POC-GLUCOSE METER 95 mg/dL 70-110 : TESTED A T [facility] 6720 (BEAKER) (test code = [facility], 1538) 82421: Rn Examiner/Techni charo ID = [id number] for Beena Reed POCT-GLUCOSE [id number] 17:04:00 Test Item Value Reference Range Interpretation Comments POC-GLUCOSE METER 98 mg/dL 70-110 : TESTED A T [facility] 6720 (BEAKER) (test code = [facility], 1538) 33498: Rn Examiner/Techni charo ID = [id number] for BELLE CHAPA PTH, [id number] 16:02:00 Test Item Value Reference Range Interpretation Comments PARATHYROID HORMONE INTACT 200.6 pg/mL 8.5-72.5 H (BEAKER) (test code = 577) CBC W/PLT COUNT & AUTO [id number] 15:09:00 Test Item Value Reference Range Interpretation [...] PERCENT (BEAKER) (test code = 2801) POCT-GLUCOSE [id number] 11:53:00 Test Item Value Reference Range Interpretation Comments POC-GLUCOSE METER 132 mg/dL 70-110 H : TESTED A T [facility] 6720 (BEAKER) (test code = [facility], 153) 54831: Rn Examiner/Techni charo ID = [id number], [place] POCT-GLUCOSE [id number] 09:42:00 Test Item Value Reference Range Interpretation Comments POC-GLUCOSE METER 112 mg/dL 70-110 H : TESTED A T [facility] 6720 (BEAKER) (test code = [facility], 1538) 36372: Rn Examiner/Techni charo ID = [id number], [place] URIC [id number] 09:14:00 Test Item Value Reference Range Interpretation Comments URIC ACID (BEAKER) (test code = 7.3 mg/dL 2.6-7.2 H 773) [id number] 06:14:00 Test Item Value Reference Range Interpretation Comments PHOSPHORUS (BEAKER) (test code = 2.8 mg/dL 2.3-4.7 604) [id number] 06:14:00 Test Item Value Reference Range Interpretation Comments MAGNESIUM (BEAKER) (test code = 1.9 mg/dL 1.6-2.6 627) BASIC METABOLIC [id number] 06:14:00 Test Item Value Reference Range Interpretation [...] NOT APPLICABLE FOR DIALYSIS PATIEN TS. POCT-GLUCOSE [id number] 21:33:00 Test Item Value Reference Range Interpretation Comments POC-GLUCOSE METER 113 mg/dL 70-110 H : TESTED A T [facility] 6720 (BEAKER) (test code = [employer] [facility], 1538) 28020: Rn Examiner/Techni charo ID = [id number] for RODGER JONES POCT-GLUCOSE [id number] 17:16:00 Test Item Value Reference Range Interpretation Comments POC-GLUCOSE METER 113 mg/dL 70-110 H : TESTED A T [facility] 6720 (BEAKER) (test code = [email or web address] [facility], 1538) 13338: Rn Examiner/Techni charo ID = [id number] for RIDDHI AGUILAR POCT-GLUCOSE [id number] 12:17:00 Test Item Value Reference Range Interpretation Comments POC-GLUCOSE METER 166 mg/dL 70-110 H : TESTED A T [facility] 6720 (BEAKER) (test code = [facility] Jacob [facility], 1538) 54229: Rn Examiner/Techni charo ID = [id number] for CHINTAN MCCLELLAND POCT-GLUCOSE [id number] 07:51:00 Test Item Value Reference Range Interpretation Comments POC-GLUCOSE METER 143 mg/dL 70-110 H : TESTED A T [facility] 6720 (BEAKER) (test code = [facility] Jacob [facility], 1538) 94528: Rn Examiner/Techni charo ID = [id number] for Neena Stanley [id number] 06:28:00 Test Item Value Reference Range Interpretation Comments MAGNESIUM (BEAKER) 1.8 mg/dL 1.6-2.6 Specimen slightly (test code = 627) hemolyzed [id number] 06:28:00 Test Item Value Reference Range Interpretation Comments PHOSPHORUS (BEAKER) 2.5 mg/dL 2.3-4.7 Specimen slightly (test code = 604) hemolyzed BASIC METABOLIC [id number] 06:28:00 Test Item Value Reference Range Interpretation [...] PATIEN TS. CBC W/PLT COUNT & AUTO [id number] 04:20:00 Test Item Value Reference Range Interpretation [...] 0-1 PERCENT (BEAKER) (test code = 2801) [id number] 17:40:00 Test Item Value Reference Range Interpretation Comments PHOSPHORUS (BEAKER) (test code = 3.3 mg/dL 2.3-4.7 604) [id number] 17:40:00 Test Item Value Reference Range Interpretation Comments MAGNESIUM (BEAKER) (test code = 1.8 mg/dL 1.6-2.6 627) BASIC METABOLIC [id number] 17:40:00 Test Item Value Reference Range Interpretation [...] S NOT APPLICABLE FOR DIALYSIS PATIEN TS. [id number] 17:03:00 Test Item Value Reference Range Interpretation [...] mechanical heart valves.CBC W/PLT COUNT & AUTO [id number] 16:56:00 Test Item Value Reference Range Interpretation [...] PERCENT (BEAKER) (test code = 2801) POCT-GLUCOSE [id number] 16:55:00 Test Item Value Reference Range Interpretation Comments POC-GLUCOSE METER 200 mg/dL 70-110 H : TESTED A T [place] [address] (BEAKER) (test code = [facility], 1538) 02751: Rn Examiner/Techni charo ID = [id number] for JOSE DENNEY [id number] 13:51:00 Test Item Value Reference Range Interpretation Comments ACTIVATED CLOTTING TIME 274 sec Refe rence Range: 74-137 (BEAKER) (test code = second s, 441) Baseline/TESTED AT [facility] 6720 [facility] 7703 0 [id number] 13:51:00 Test Item Value Reference Range Interpretation Comments ACTIVATED CLOTTING TIME 323 sec Refe rence Range: 74-137 (BEAKER) (test code = second s, 441) Baseline/TESTED AT [address] 7703 0 CBC W/PLT COUNT & AUTO [id number] 07:44:00 Test Item Value Reference Range Interpretation [...] PERCENT (BEAKER) (test code = 2801) POCT-GLUCOSE [id number] 06:13:00 Test Item Value Reference Range Interpretation Comments POC-GLUCOSE METER 123 mg/dL 70-110 H : TESTED A T [facility] 6720 (BEAKER) (test code [facility], = 1538) 74975: Rn Examiner/Techni charo ID = [id number] for JORD AN, LACRYSTAL PLATELET [id number] 11:27:00 Test Item Value Reference Range Interpretation Comments PLATELET COUNT (BEAKER) (test 112 K/CU MM 150-450 L code = 756) [id number] 11:07:00 Test Item Value Reference Range Interpretation Comments SODIUM (BEAKER) (test code = 381) 138 meq/L 136-145 POTASSIUM (BEAKER) (test code = 4.7 meq/L 3.5-5.1 379) CHLORIDE (BEAKER) (test code = 382) 107 meq/L 98-107 CO2 (BEAKER) (test code = 355) 26 meq/L 22-29 [id number] 11:07:00 Test Item Value Reference Range Interpretation Comments GLUCOSE RANDOM (BEAKER) (test code 134 mg/dL 70-105 H = 652) BUN AND [id number] 11:07:00 Test Item Value Reference Range Interpretation [...] S NOT APPLICABLE FOR DIALYSIS PATIEN TS. [id number] 10:54:00 Test Item Value Reference Range Interpretation Comments HEMOGLOBIN (BEAKER) (test code = 13.1 GM/DL 11.2-15.7 410) PET, CARDIAC PERFUSION MULTIPLE STUDIES, REST AND [id number] 16:17:00 Reason for Exam:->i73.9, e11.9, i25.10FINAL REPORT PROCEDURE: MYOCARDIAL PERFUSION PET IMAGING (Rest/Stress)CPT CODE:48588 INDICATION: Known CAD CARDIOVASCULAR PROFILE:CAD History: Known [...] MDReport Verified Date/Time: 11/26/2018 16:17:24 Reading Location: [place] [id number] Reading Room ELECTROCARDIOGRAM [id number] 22:58:11Result approved by Michael Mancia MD on 11/17/18BASIC METABOLIC [id number] 11:28:00 Test Item Value Reference Range Interpretation [...] PATIEN TS. CBC W/PLT COUNT & AUTO [id number] 11:19:00 Test Item Value Reference Range Interpretation [...] (BEAKER) (test code = 2801) BASIC METABOLIC [id number] 14:13:00 Test Item Value Reference Range Interpretation [...] PATIEN TS. CBC W/PLT COUNT & AUTO [id number] 13:54:00 Test Item Value Reference Range Interpretation [...] % 0-1 PERCENT (BEAKER) (test code = 1015)
--- NOTE | 2022-03-09 13:01 | RAD REPORT ---
EXAM DESCRIPTION: RAD - Chest Single View - 03/09/2022 12:51 pm CLINICAL HISTORY: CHEST PAIN COMPARISON: Two view chest 09/26/2021 TECHNIQUE: AP portable chest image was obtained 03/09/2022 12:51 pm . FINDINGS: No focal mass or consolidation. Portable technique, slightly shallow inspiration and promi nent overlying soft tissues accentuate the lung parenchymal density and prominence of the lung markin gs. No significant failure or volume overload identifiable. Single lead defibrillator is in place. Heart and vasculature are normal. No measurable pleural effusi on and no pneumothorax. No acute bony abnormality seen. No acute aortic findings suspected. IMPRESSION: No acute cardiopulmonary process. No significant change from comparison.
[2022-03-09 13:16] LABS: Absolute Lymphocytes (CBC) 0.9 K/uL (0.7-4.9); Hematocrit 43.3 % (36.0-45.0); Lymphocytes % 23.3 % (15.3-44.8); MCV 91.7 fL (80-100); MPV 10.4 fL (7.6-11.3); RBC Red Blood Cell Count 4.73 M/uL (3.86-4.86)
[2022-03-09 13:17] LABS: Protime INR 1.13
[2022-03-09 13:24] LABS: SARS-CoV-2 Antigen Rapid Res Negative (Negative)
[2022-03-09] MEDS ORDERED: MORPHINE 4 MG/ML SYR ONE (13:32)
[2022-03-09] MEDS ORDERED: ONDANSETRON 4 MG/2 ML VIAL ONE (13:32)
[2022-03-09 13:39] LABS: ALT/SGPT 19 U/L (13-56); AST/SGOT 14 U/L (15-37); Albumin 3.8 g/dL (3.4-5.0); Alkaline Phosphatase 108 U/L (45-117); BUN Blood Urea Nitrogen 36 mg/dL (7-18); Bicarbonate 27 mmol/L (21-32); Bilirubin Direct < 0.1 mg/dL (0-0.2); Bilirubin Total 0.2 mg/dL (0.2-1.0); Glomerular Filtration Rate 25 ml/min (=/>90); Glucose Level 161 mg/dL (74-106); Magnesium 2.5 mg/dL (1.6-2.4); NT PRO-BNP 465 pg/mL (<450); Potassium 4.4 mmol/L (3.5-5.1); Protein, Total 7.8 g/dL (6.4-8.2); Sodium Level 142 mmol/L (136-145); Troponin High Sensitivity 21.2 pg/mL (<58.9)
--- NOTE | 2022-03-09 15:03 | EDPHYS ---
Physician Documentation [facility] Name: Sangita Hendrix Age: 76 yrs Sex: Female : 1945 Arrival Date: 03/09/2022 Time: 12:07 Bed 17 Private MD: ED Physician Mat Ayala Historical: - Allergies: 03/09 12:16 PENICILLINS; iw - PMHx: 12:16 BRADYCARDIA; CHF; Dementia; Diabetes - IDDM; Gout; Pacemaker; iw - PSHx: 12:16 Cholecystectomy; hysterectomy; iw - Immunization history:: Adult Immunizations Client reports receiving the 2nd dose of the Covid vaccine. - Social history:: Smoking status: Patient denies any tobacco usage or history of. Vital Signs: 12:15 BP 132 / 65; Pulse 54; Resp 16; Temp 98.4; Pulse Ox 100% on R/A; iw 13:00 BP 142 / 76; Pulse 59; Resp 17; Pulse Ox 98% on R/A; kr3 14:00 BP 154 / 76; Pulse 52; Resp 16; Pulse Ox 98% on R/A; kr3 MDM: 12:22 Patient medically screened. [facility] 14:25 Data reviewed: vital signs, nurses notes. [facility] 03/09 12:22 Order name: Basic Metabolic Panel; Complete Time: 13:44 [facility] 03/09 12:22 Order name: CBC with Diff; Complete Time: 13:25 [facility] 03/09 12:22 Order name: LFT's; Complete Time: 13:44 [facility] 03/09 12:22 Order name: Magnesium; Complete Time: 13:44 [facility] 03/09 12:22 Order name: NT PRO-BNP; Complete Time: 13:44 [facility] 03/09 12:22 Order name: PT-INR; Complete Time: 13:18 [facility] 03/09 12:22 Order name: Troponin HS; Complete Time: 13:44 [facility] 03/09 12:22 Order name: XRAY Chest (1 view); Complete Time: 13:10 [facility] 03/09 12:22 Order name: EKG; Complete Time: 12:23 [facility] 03/09 12:22 Order name: Cardiac monitoring; Complete Time: 13:41 [facility] 03/09 12:22 Order name: SARS RAPID; Complete Time: 13:25 [facility] 03/09 15:49 Order name: CONS Physician Consult EDSD 03/09 12:22 Order name: EKG - Nurse/Tech; Complete Time: 13:41 [facility] 03/09 12:22 Order name: IV Saline Lock; Complete Time: 13:41 [facility] 03/09 12:22 Order name: Labs collected and sent; Complete Time: 13:41 [facility] 03/09 12:22 Order name: O2 Per Protocol; Complete Time: 13:41 [facility] 03/09 12:22 Order name: O2 Sat Monitoring; Complete Time: 13:41 [facility] Administered Medications: 13:40 Drug: Zofran (Ondansetron) 4 mg Route: IVP; Site: right wrist; kr3 13:41 Drug: morphine 4 mg Route: IVP; Infused Over: 4 mins; Site: right wrist; kr3 Disposition: 17:15 Co-signature as Attending Physician, Mat Ayala DO I was immediately available on-site ms3 in the Emergency Department for consultation in the care of the patient. Disposition Summary: 03/09/22 15:02 Hospitalization Ordered Hospitalization Status: Observation [facility] Provider: Vinicius Quinonez Location: Telemetry/MedSurg (observation)(03/09/22 15:02) [facility] Condition: Stable(03/09/22 15:02) [facility] Problem: new [facility] Symptoms: are unchanged [facility] Bed/Room Type: Standard [facility] Room Assignment: 412(03/09/22 17:39) eb Diagnosis - Chest pain, unspecified [facility] Forms: - Medication Reconciliation Form [facility] - SBAR form [facility] Signatures: Dispatcher [employer] EDSD James Esquivel PA PA Romana Adan, RN Emma Arias Marcus, DO DO ms3 Kavita Jean RN RN kr3 Corrections: (The following items were deleted from the chart) 14:26 14:26 Home jmm [facility] 14:26 14:26 Stable [facility] 14:26 14:26 Other abdominal pain [facility] 14:26 14:26 Unilateral inguinal hernia, without obstruction or gangrene [facility] 17:39 15:02 [facility] eb
--- NOTE | 2022-03-09 15:03 | ER ---
Nurse's Notes [facility] Name: Sangita Hendrix Age: 76 yrs Sex: Female : 1945 Arrival Date: 03/09/2022 Time: 12:07 Bed 17 Private MD: Diagnosis: Chest pain, unspecified Presentation: 03/09 12:15 Chief complaint: Patient states: my pacemaker is hurting me , Dr. Stone says she has iw inflammation and it gives her pain everyday , he says it's just a plain side effect. Coronavirus screen: At this time, the client does not indicate any symptoms associated with coronavirus-19. Ebola Screen: Patient negative for fever greater than or equal to 101.5 degrees Fahrenheit, and additional compatible Ebola Virus Disease symptoms Patient denies exposure to infectious person. Patient denies travel to an Ebola-affected area in the 21 days before illness onset. No symptoms or risks identified at this time. Initial Sepsis Screen: Does the patient meet any 2 criteria? No. Patient's initial sepsis screen is negative. Does the patient have a suspected source of infection? No. Patient's initial sepsis screen is negative. Risk Assessment: Do you want to hurt yourself or someone else? Patient reports no desire to harm self or others. Onset of symptoms was March 09, 2022. 12:15 Method Of Arrival: Ambulatory iw 12:15 Acuity: MADISYN 3 iw Historical: - Allergies: 12:16 PENICILLINS; iw - PMHx: 12:16 BRADYCARDIA; CHF; Dementia; Diabetes - IDDM; Gout; Pacemaker; iw - PSHx: 12:16 Cholecystectomy; hysterectomy; iw - Immunization history:: Adult Immunizations Client reports receiving the 2nd dose of the Covid vaccine. - Social history:: Smoking status: Patient denies any tobacco usage or history of. Screenin:30 Abuse screen: Denies threats or abuse. Denies injuries from another. ha1 19:30 Nutritional screening: No deficits noted. Tuberculosis screening: No symptoms or risk ha1 factors identified. Assessment: 14:50 General: Appears in no apparent distress. comfortable, Behavior is calm, cooperative, kr3 appropriate for age. Neuro: Level of Consciousness is awake, alert, obeys commands, Oriented to person, place, time. Cardiovascular: Patient's skin is warm and dry. Respiratory: Airway is patent Respiratory effort is even, unlabored, Respiratory pattern is regular, symmetrical. GI: No signs and/or symptoms were reported involving the gastrointestinal system. : No signs and/or symptoms were reported regarding the genitourinary system. EENT: No signs and/or symptoms were reported regarding the EENT system. Derm: Skin is fragile. Musculoskeletal: No signs and/or symptoms reported regarding the musculoskeletal system. 20:09 Pain: ha1 Vital Signs: 12:15 BP 132 / 65; Pulse 54; Resp 16; Temp 98.4; Pulse Ox 100% on R/A; iw 13:00 BP 142 / 76; Pulse 59; Resp 17; Pulse Ox 98% on R/A; kr3 14:00 BP 154 / 76; Pulse 52; Resp 16; Pulse Ox 98% on R/A; kr3 ED Course: 12:07 Patient arrived in ED. am2 12:07 James Esquivel PA is PHCP. jmm 12:07 Mat Ayala DO is Attending Physician. jmm 12:16 Triage completed. iw 12:17 Arm band placed on. iw 12:27 Kavita Jean, ANAMARIA is Primary Nurse. kr3 12:53 XRAY Chest (1 view) In Process Unspecified. EDMS 12:55 Missed attempt(s): 20 gauge in left antecubital area. kr3 13:08 Inserted saline lock: 22 gauge in right wrist, using aseptic technique. Blood collected.mb9 14:25 Buddy Alberts MD is Referral Physician. jmm 15:02 Vinicius Quinonez MD is Hospitalizing Provider. m 19:30 Patient has correct armband on for positive identification. Placed in gown. Bed in low ha1 position. Call light in reach. Side rails up X 1. Adult w/ patient. 19:30 No provider procedures requiring assistance completed. IV discontinued, intact, ha1 bleeding controlled, No redness/swelling at site. Pressure dressing applied. Administered Medications: 13:40 Drug: Zofran (Ondansetron) 4 mg Route: IVP; Site: right wrist; kr3 13:41 Drug: morphine 4 mg Route: IVP; Infused Over: 4 mins; Site: right wrist; kr3 Medication: 20:09 VIS not applicable for this client. ha1 Outcome: 14:26 Discharge ordered by . rahul 15:02 Decision to Hospitalize by Provider. rahul 20:05 Admitted to Med/surg accompanied by tech, family with patient, via wheelchair, room ha1 412, with chart, Report called to Elza 20:05 Condition: stable 20:09 Patient left the ED. ha1 Signatures: Dispatcher [employer] EDMS James Esquivel PA PA jmm Williams, Irene, RN RN Nafisa Major 2 Noreen Morgan RN RN [facility] Kavita Jean, RN RN kr3 Erlinda White, RN RN mb9
--- NOTE | 2022-03-09 16:01 | P.HP ---
Certification for Inpatient Patient admitted to: Observation With expected LOS: <2 Midnights Patient will require the following post-hospital care: None Practitioner: I am a practitioner with admitting privileges, knowledge of patient current condition, hospital course, and medical plan of care. Services: Services provided to patient in accordance with Admission requirements found in Title 42 Section 412.3 of the Code of Federal Regulations <Iain Ray - Last Filed: 03/09/22 15:51> Patient History Date of Service: 03/09/22 Reason for admission: chest pain History of Present Illness: Ms. Hendrix is a 76 yo F with history of CHF s/p pacemaker/defibrillator, HTN, HLD, CKD, DM, PAD, dementia, and chronic thrombocytopenia who presents with 8/10 intermittent left sided chest pain for the past month. She recently saw her occupational nurse about a month ago for pain around her pacemaker. Pacemaker check was okay, and pain thought to be a side effect related to inflammation. Patient says pain is currently underneath her left breast. No pain around her pacemaker with palpation. Initial troponin negative. - Past Medical/Surgical History Diabetic: Yes -: HLD -: Systolic CHF -: HTN -: DM -: dementia -: CKD -: thrombocytopenia -: PAD -: Pacer/Defib -: Back sX -: Hysterectomy -: Vascular Sx Psychosocial/ Personal History: Patient lives at home with family - Family History Mother -: Hypertension Sister -: Kidney disease Father -: Heart disease Brother -: Heart disease - Social History Smoking Status: Never smoker Alcohol use: No CD- Drugs: No Caffeine use: Yes Place of Residence: Home <Iain Ray - Last Filed: 03/09/22 15:51> Date of Service: 03/09/22 <Vinicius Quinonez - Last Filed: 03/09/22 18:15> Allergies Penicillins Allergy (Mild, Verified 03/29/14 22:36) Hives/Rash No Known Allergie Allergy (Uncoded 11/11/15 08:18) Unknown Home Medications: RX: Amiodarone HCl [Cordarone*] 1 tab PO DAILY 05/30/17 RX: Furosemide 1 tab PO DAILY 05/30/17 RX: Insulin Glargine,Hum.rec.anlog [Lantus] 20 unit SQ DAILYPRN PRN 05/30/17 RX: Potassium Chloride 1 tab PO DAILY 05/30/17 RX: Sacubitril/Valsartan [Entresto 24 mg-26 mg Tablet] 1 tab PO DAILY 05/30/17 RX: carvediloL [Carvedilol] 1 tab PO BID 05/30/17 RX: Aspirin [Aspirin EC 81 MG] 81 mg PO DAILY 08/25/21 RX: Clopidogrel Bisulfate [Plavix*] 75 mg PO DAILY 08/25/21 RX: Memantine HCl [Namenda] 10 mg PO DAILY 08/25/21 RX: Rosuvastatin Calcium [Crestor] 20 mg PO DAILY 08/25/21 RX: Tramadol HCl [Ultram] 50 mg PO BID PRN 08/25/21 Review of Systems 10-point ROS is otherwise unremarkable General: Unremarkable Eyes: Unremarkable ENT: Unremarkable Respiratory: Unremarkable Cardiovascular: Chest Pain Gastrointestinal: Unremarkable Genitourinary: Unremarkable Musculoskeletal: Unremarkable Integumentary: Unremarkable Neurological: Unremarkable Lymphatics: Unremarkable <Iain Ray - Last Filed: 03/09/22 15:51> Physical Examination - Physical Exam General: Alert, In no apparent distress, Demented HEENT: Atraumatic, PERRLA, Mucous membr. moist/pink, EOMI, Sclerae nonicteric Neck: Supple, No LAD Respiratory: Clear to auscultation bilaterally, Normal air movement Cardiovascular: No edema, Regular rate/rhythm, Normal S1 S2 Gastrointestinal: Normal bowel sounds, No tenderness Musculoskeletal: No tenderness Integumentary: No rashes Neurological: Normal speech, Normal tone Lymphatics: No axilla or inguinal lymphadenopathy - Studies Laboratory Data (last 24 hrs) 03/09/22 13:01: PT 12.4, INR 1.13 03/09/22 13:01: WBC 3.90 L, Hgb 13.9, Hct 43.3, Plt Count 124 L 03/09/22 13:01: Sodium 142, Potassium 4.4, BUN 36 H, Creatinine 2.07 H, Glucose 161 H, Magnesium 2.5 H, Total Bilirubin 0.2, AST 14 L, ALT 19, Alkaline Phosphatase 108 <Iain Ray - Last Filed: 03/09/22 15:51> - Studies Laboratory Data (last 24 hrs) 03/09/22 13:01: PT 12.4, INR 1.13 03/09/22 13:01: WBC 3.90 L, Hgb 13.9, Hct 43.3, Plt Count 124 L 03/09/22 13:01: Sodium 142, Potassium 4.4, BUN 36 H, Creatinine 2.07 H, Glucose 161 H, Magnesium 2.5 H, Total Bilirubin 0.2, AST 14 L, ALT 19, Alkaline Phosphatase 108 <Vinicius Quinonez - Last Filed: 03/09/22 18:15> Assessment and Plan - Plan Assessment Chest pain Congestive heart failure s/p pacemaker/defibrillator placement Hypertension Hyperlipidemia Stage IV Chronic Kidney Disease Peripheral Arterial Disease Chronic Thrombocytopenia Dementia Diabetes mellitus Plan Chest pain - trend troponin and EKG - on telemetry - cardiology consulted - daily aspirin and plavix - morphine PRN - lipid and thyroid levels pending Congestive heart failure s/p pacemaker/defibrillator placement - resume entresto, amiodarone, furosemide, carvedilol - patient's pacemaker evaluated last month by occupational nurse Hypertension - resume home medications - hydralazine IV PRN Hyperlipidemia - resume rosuvastatin Stage IV Chronic Kidney Disease - stable, continue to monitor Peripheral Arterial Disease - stable, resume plavix - pain medications as needed Chronic Thrombocytopenia - stable, continue to monitor Dementia - resume memantine Diabetes mellitus - sliding scale insulin and accuchecks DVT ppx: SCDs Full Code Discharge Plan: Home Plan to discharge in: 24 Hours - Advance Directives Does patient have a Living Will: Yes Does patient have a Durable POA for Healthcare: No - Code Status/Comfort Care Code Status Assessed: Yes (full code ) Critical Care: No Time Spent Managing Pts Care (In Minutes): 70 <Iain Ray - Last Filed: 03/09/22 15:51> Physician Review: Patient Assessed, Agree with Above Assessment and Plan <Vinicius Quinonez - Last Filed: 03/09/22 18:15>
[2022-03-09] MEDS: INSULIN -REGULAR HUMAN 50 UNIT/0.5 ML ML SQ SCH ×2 (19:42→20:23)
[2022-03-09 20:47] VITALS: BMI 42.0
[2022-03-09] MEDS: MORPHINE 2 MG/ML SYR IV PRN (21:14)
[2022-03-09] MEDS: ONDANSETRON 4 MG/2 ML VIAL IV PRN (21:14)
[2022-03-09] MEDS: carvediloL 6.25 MG TAB PO SCH (21:29)
[2022-03-09 21:46] VITALS: O2SAT 98
[2022-03-10] MEDS: ACETAMINOPHEN 500 MG TAB PO PRN ×2 (00:14→09:46)
[2022-03-10] MEDS: ONDANSETRON 4 MG/2 ML VIAL IV PRN (03:15)
[2022-03-10] MEDS: MORPHINE 2 MG/ML SYR IV PRN (03:15)
[2022-03-10 04:10] LABS: Absolute Lymphocytes (CBC) 0.5 K/uL (0.7-4.9); Hematocrit 40.8 % (36.0-45.0); Lymphocytes % 10.4 % (15.3-44.8); MCV 90.2 fL (80-100); MPV 10.1 fL (7.6-11.3); RBC Red Blood Cell Count 4.52 M/uL (3.86-4.86)
[2022-03-10 04:35] LABS: Magnesium 2.4 mg/dL (1.6-2.4); Phosphorus 3.6 mg/dL (2.5-4.9); Potassium 4.8 mmol/L (3.5-5.1); Thyroid Stimulating Hormone 1.09 uIU/mL (0.358-3.740)
[2022-03-10] MEDS: INSULIN -REGULAR HUMAN 50 UNIT/0.5 ML ML SQ SCH ×2 (07:30→11:30)
[2022-03-10] MEDS: carvediloL 6.25 MG TAB PO SCH (08:58)
[2022-03-10] MEDS ORDERED: CLOPIDOGREL 75 MG TABLET PO SCH (09:00)
[2022-03-10] MEDS ORDERED: ASPIRIN EC 81 MG TAB PO SCH (09:00)
[2022-03-10 12:00] VITALS: BP 109/52; TEMP 100.3
--- NOTE | 2022-03-10 13:51 | P.DS ---
Admission Date: 03/09/22 Discharge Date: 03/10/22 Disposition: AMA-LEFT AGAINST MEDICAL ADVIC Discharge Condition: FAIR Reason for Admission: chest pain Consultations: 1. Cardiology Hospital Course: DIAGNOSES: # Atypical Chest Pain # Hyperglycemia in Type II Diabetes Mellitus # Chronic Compensated Systolic Congestive Heart Failure with Reduced Ejection Fraction s/p PPM/AICD # Dementia # Chronic Kidney Disease Stage IV # Hypertension # Hyperlipidemia # Peripheral Arterial Disease # Chronic Thrombocytopenia HOSPITAL COURSE: Ms. Sangita Hendrix is a 76 year old female with a past medical history significant for type 2 diabetes mellitus, chronic systolic congestive heart failure s/p PPM/AICD, chronic kidney disease stage IV, dementia, hypertension, hyperlipidemia, and peripheral arterial disease who was admitted to the [facility] on 03/09/2022 for chest discomfort. She was admitted to the Medicine service. Upon further evaluation, her NT Pro- BNP was 465 and her D-dimer was 1120. Her EKG was reportedly without STEMI criteria. Her troponin trend was 21.2 -> 20.8 -> 20.7. Her chest x-ray revealed, "no acute cardiopulmonary process. No significant change from comparison." For her cardiac evaluation, a transthoracic echocardiogram and a Cardiology consultation was requested. For the elevated d-dimer, V/Q scan was requested over a CT chest angiogram due to her chronic kidney disease. However, this morning her daughter was upset that we are not able to obtain a V/Q scan on the weekend. I explained that I would not be able to medically clear her without excluding a pulmonary embolism as a possible etiology of her chest pain. However, she was not interested in waiting for either the V/Q scan, the transthoracic echocardiogram, or the cardiology consultation. I held an extensive discussion with her and her daughter explaining the risks of a premature discharge, including but not limited to, an undiagnosed pulmonary embolism with right heart strain, evolving myocardial infarction, and . She verbalized understanding and stated that she accepts these risks. Charge nurse ANAMARIA Mejía, and bedside nurse ANAMARIA Sharif, were present for this discussion. They have elected to sign out AGAINST MEDICAL ADVICE. She was discharged with instructions to schedule follow-up appointments with her PCP (Dr. Yao) and with her Manager Patient (Dr. Stone). She and her daughter were given the opportunity to ask questions and reported no further questions. Furthermore, all questions were answered to the best of my ability. A copy of this discharge summary will be sent to the above providers to facilitate continuity of care. Today, I personally spent 25 minutes on her case, of which greater than 50% of the time was spent in patient education, counseling, and coordination of care as described above. Vital Signs/Physical Exam: Temp Pulse Resp BP Pulse Ox 100.3 F 68 16 109/52 L 97 03/10/22 11:59 03/10/22 11:59 03/10/22 11:59 03/10/22 11:59 03/10/22 11:59 General: Alert, In no apparent distress, Demented HEENT: Atraumatic, Mucous membr. moist/pink, Sclerae nonicteric Neck: JVD not distended Respiratory: Clear to auscultation bilaterally, Normal air movement Cardiovascular: No edema, Regular rate/rhythm, No gallops, No rubs, No murmurs, Other (pacemaker noted - site is clean, dry, intact) Gastrointestinal: Normal bowel sounds, Soft and benign, Non-distended, No tenderness, No rebound, No guarding Musculoskeletal: No clubbing Integumentary: No rashes Neurological: Dementia Laboratory Data at Discharge: WBC 4.90 K/uL (4.3-10.9) 03/10/22 04:01 Hgb 13.4 g/dL (12.0-15.0) 03/10/22 04:01 Hct 40.8 % (36.0-45.0) 03/10/22 04:01 Plt Count 128 K/uL (152-406) L 03/10/22 04:01 PT 12.4 SECONDS (9.5-12.5) 03/09/22 13:01 INR 1.13 03/09/22 13:01 Sodium 141 mmol/L (136-145) 03/10/22 04:01 Potassium 4.8 mmol/L (3.5-5.1) 03/10/22 04:01 BUN 33 mg/dL (7-18) H 03/10/22 04:01 Creatinine 1.90 mg/dL (0.55-1.02) H 03/10/22 04:01 Glucose 196 mg/dL (74-106) H 03/10/22 04:01 Phosphorus 3.6 mg/dL (2.5-4.9) 03/10/22 04:01 Magnesium 2.4 mg/dL (1.6-2.4) 03/10/22 04:01 Total Bilirubin 0.2 mg/dL (0.2-1.0) 03/09/22 13:01 AST 14 U/L (15-37) L 03/09/22 13:01 ALT 19 U/L (13-56) 03/09/22 13:01 Alkaline Phosphatase 108 U/L (45-117) 03/09/22 13:01 Triglycerides 54 mg/dL (<150) 03/10/22 04:01 Cholesterol 156 mg/dL (<200) 03/10/22 04:01 HDL Cholesterol 65 mg/dL (40-60) H 03/10/22 04:01 Cholesterol/HDL Ratio 2.40 03/10/22 04:01 Home Medications: Amiodarone HCl [Cordarone*] 1 tab PO DAILY 05/30/17 Furosemide 1 tab PO DAILY 05/30/17 Insulin Glargine,Hum.rec.anlog [Lantus] 25 unit SQ DAILYPRN PRN 05/30/17 Sacubitril/Valsartan [Entresto 24 mg-26 mg Tablet] 1 tab PO DAILY 05/30/17 carvediloL [Carvedilol] 1 tab PO BID 05/30/17 Aspirin [Aspirin EC 81 MG] 81 mg PO DAILY 08/25/21 Clopidogrel Bisulfate [Plavix*] 75 mg PO DAILY 08/25/21 Memantine HCl [Namenda] 10 mg PO DAILY 08/25/21 Rosuvastatin Calcium [Crestor] 20 mg PO DAILY 08/25/21 Tramadol HCl [Ultram] 50 mg PO BID PRN 08/25/21 Gabapentin 300 mg PO BID 03/09/22 Physician Discharge Instructions: 1. Please call and schedule a follow-up appointment with your PCP (Dr. Yao) as soon as possible 2. Please call and schedule a follow-up appointment with your Manager Patient (Dr. Stone) as soon as possible Diet: AHA Activity: Fall precautions Followup: Griselad Yao DO [Primary Care Provider] - Khurram Stone MD [ACTIVE - CAN ADMIT] - Time spent managing pt's care (in minutes): 25
--- NOTE | 2022-03-12 17:01 | EKG ---
Test Date: 2022-03-09 Test Time: 13:38:31 Operations And Intelligence Assistant: SAMPSON MEASUREMENT RESULTS: Intervals: Rate: 55 SD: 240 QRSD: 114 QT: 492 QTc: 470 [place]: P: 67 SD: 240 QRS: -1 T: 22 INTERPRETIVE STATEMENTS: Sinus bradycardia with 1st degree AV block Low voltage QRS Cannot rule out Anteroseptal infarct, age undetermined Abnormal ECG Compared to ECG 08/25/2021 14:56:37 First degree AV block now present Low QRS voltage now present Left-axis deviation no longer present Myocardial infarct finding still present Electronically Signed On 03-12-22 16:56:24 [employer] RE[employer] by Lee Garza
== END 2022-03-10 13:21 | disposition left against medical advice (07) ==
LOC: ER 12:05 → ERHOLD 15:47 → 4TH 19:38
PROVIDERS: ADMIT Internal Medicine; ATTEND Internal Medicine
DX: R07.89 Other chest pain (principal); E11.65 Type 2 diabetes mellitus with hyperglycemia; I10 Essential (primary) hypertension; E78.5 Hyperlipidemia, unspecified; E11.22 Type 2 diabetes mellitus with diabetic chronic kidney disease; I13.0 Hypertensive heart and chronic kidney disease with heart failure and stage 1 through stage 4 chronic kidney disease, or unspecified chronic kidney disease; N18.4 Chronic kidney disease, stage 4 (severe); I50.22 Chronic systolic (congestive) heart failure; I73.9 Peripheral vascular disease, unspecified; D69.6 Thrombocytopenia, unspecified; F03.90 Unspecified dementia, unspecified severity, without behavioral disturbance, psychotic disturbance, mood disturbance, and anxiety; Z20.822 Contact with and (suspected) exposure to COVID-19; Z53.29 Procedure and treatment not carried out because of patient's decision for other reasons
CPT/HCPCS: 85025 ×2; 80048 ×2; 36415; 83735 ×2; 84100; 85610; 80061; 82947 ×3; 85379; 80076; 84443; 84484 ×3; 84439; 83880; 71045; 96375; 96374; 99285; 87811; J2270 ×2; J2405 ×3; 93005; G0378

== ENCOUNTER 2022-08-20 14:27 | Emergency (ER) | payer OTHER ==
--- OUTSIDE RECORDS SUMMARY | 2022-08-20 14:33 | XMS REPORT | Continuity of Care Document ---
:1945 Author Organization [facility] t Address [address] [place] [address] Care Team Providers Name Role Phone VIC FORTUNE Primary Care Physician Unavailable IAN DOAN Attending Clinician Unavailable IZAIAH GARCIA Attending Clinician Unavailable ASHELY MOON Attending Clinician Unavailable FREYA HIGHTOWER Attending Clinician Unavailable Ian Doan MD Attending Clinician Michael Mancia MD Attending Clinician IAN DOAN Admitting Clinician Unavailable IZAIAH GARCIA Admitting Clinician Unavailable Payers Payer Name Policy Type Policy Number Effective Date Expiration Date S ource HU[employer]NA PPO SELECT [id number] 2018 ASO 00:00:00 [employer] MEDICARE [id number] 2018 ADV 00:00:00 Problems Condition Condition Condition Status Onset Resolution Last Treating Co mments Source Name Details Category Date Date Treatment Clinician Date Atheroscle Atheroscle Disease Recurre 2018-[address] [facility] [address] [facility] 03[facility]10 [facility] [place] [place] [facility] arteries arteries 00 Center of of extremitie extremitie s with s with intermitte intermitte nt nt claudicati claudicati on, on, bilateral bilateral legs legs Peripheral Peripheral Disease Recurre [facility] artery artery nce 9[facility]16 [facility] disease 00:00: Medical 00 Center PAD PAD Disease Recurre [facility] (periphera (periphera nce 4-30 [facility] l artery l artery 00:00: Medica l disease) disease) 00 Center LUMBAR LUMBAR Condition Active 2011-09-28 M emoria SPONDYLOLI SPONDYLOLI 09-18 09:50:05 l STHESIS STHESIS 00:00: Jose Luis Active 00 09/19/2011 Condition 09/28/2011 [facility] DIABETES DIABETES Condition Inactiv 2011-09-28 Memoria MELLITUS MELLITUS e 09:50:05 l Inactive Jose Luis Condition 09/28/2011 [facility] HYPERTENSI HYPERTENS Condition Inactiv 2011-09-28 Memoria ON ION e 09:50:05 l Inactive [place] Condition 09/28/2011 [facility] LUMBAR LUMBAR Condition Inactiv 2011-09-28 M emoria RADICULOPA RADICULOPA e 09:50:05 l THY THY Jose Luis Inactive Condition 09/28/2011 [facility] DISC DISC Condition Inactiv 2011-09-28 Me moria DISEASE, DISEASE, e 09:50:05 l LUMBAR LUMBAR [place] Inactive Condition 09/28/2011 [facility] SPINAL SPINAL Condition Inactiv 2011-09-28 M emoria STENOSIS, STENOSIS, e 09:50:05 l LUMBAR LUMBAR [place] Inactive Condition 09/28/2011 [facility] Allergies, Adverse Reactions, Alerts Allergy Allergy Status [...] Stop Date Quantity Comments Source History SDOH [facility] Alcohol Comment Medical C enter History SDOH [facility] Alcohol Std Drinks Medica l Center History SDOH [facility] Alcohol Binge Medical [facility] Alcohol intake 2020-01-20 2020-01-[address] [facility] 00:00:00 00:00:00 non-drinker of Medical Ce nter alcohol (finding) Tobacco use and 2018-05-28 2018-05-[address] [facility] exposure 00:00:00 00:00:00 non-user Medical Center History SDOH 2018-05-28 2018-05-[address] [facility] Alcohol Frequency 00:00:00 00:00:00 Medical Center Sex Assigned At [address] [facility] 00:00:00 00:00:00 Medical Center Smoking Status Start Date Stop Date Source Never smoked tobacco [facility] s [facility] Medications Ordered Filled Start Stop Current Ordering [...] MG 11:09: mouth Medical tablet 02 daily. Center furosemide 2019-02 Yes 40mg QD Take [address] (LASIX) 40 1-30 by mouth [facility] MG tablet 11:09: daily. Medica l 02 [place] carvedilol 2019-02 Yes 6.25mg Take 6.[address] (COREG) 1-30 mg by [facility] 6.25 MG 11:09: mouth 2 Medical tablet 02 (two) Center times daily with breakfast and dinner. rosuvastati 2019-02 Yes 20mg QD Take [address] n (CRESTOR) 1-30 by mouth Luke s 20 MG 11:09: daily. Medical tablet 02 Center aspirin 81 2019-02 Yes 81mg QD Take [address] MG EC 1-30 by mouth [facility] tablet 11:09: daily. Medical 02 Center clopidogreL 2020-1 Yes 75mg QD Take [address] (PLAVIX) 75 1-30 by mouth Luke s mg tablet 11:09: daily. Medica l 02 [place] insulin 2019-02 Yes 20U Inject 20 CHI [...] MG 11:09: mouth Medical tablet 02 daily. [place] furosemide 2019-02 Yes 40mg QD Take [address] (LASIX) 40 1-30 by mouth [facility] MG tablet 11:09: daily. Medica l 02 [place] carvedilol 2019-02 Yes 6.25mg Take 6.[address] (COREG) 1-30 mg by [facility]ukes 6.25 MG 11:09: mouth 2 Medical tablet 02 (two) Center times daily with breakfast and dinner. rosuvastati 2019-02 Yes 20mg QD Take [address] [facility] (CRESTOR) 1-30 by mouth Luke s 20 MG 11:09: daily. Medical tablet 02 [place] aspirin 81 2019-02 Yes 81mg QD Take [address] MG EC 1-30 by mouth [facility] tablet 11:09: daily. Medical 02 Center clopidogreL 2019-02 Yes 75mg QD Take [address] (PLAVIX) 75 1-30 by mouth Luke s mg tablet 11:09: daily. Medica l 02 [place] insulin 2019-02 Yes 20U Inject 20 CHI [...] MG 11:09: mouth Medical tablet 02 daily. [place] furosemide 2019-02 Yes 40mg QD Take [address] (LASIX) 40 1-30 by mouth [facility] MG tablet 11:09: daily. Medica [address] carvedilol 2019-02 Yes 6.25mg Take 6.[address] (COREG) 1-30 mg by Lukes 6.25 MG 11:09: mouth 2 Medical tablet 02 (two) Center times daily with breakfast and dinner. rosuvastati 2019-02 Yes 20mg QD Take [address] n (CRESTOR) 1-30 by mouth Luke s 20 MG 11:09: daily. Medical tablet 02 [place] aspirin 81 2019-02 Yes 81mg QD Take [address] MG EC 1-30 by mouth [facility] tablet 11:09: daily. [address] clopidogreL 2019-02 Yes 75mg QD Take [address] (PLAVIX) 75 1-30 by mouth Luke s mg tablet 11:09: [facility]. [facility] [address] insulin 2019-02 Yes 20U Inject 20 [facility] t glargine 1-30 Units [facility]ukes (LANTUS) 11:09: subcutaneo Med ical 100 unit/mL 02 usly as Cente r injection needed Use as directed . sacubitril- 2019-02 Yes 1{tbl} Q.5D Take [address] valsartan 1-30 tablet by [facility]ukes (ENTRESTO) 11:09: mouth 2 Medi ava 24-26 mg 02 (two) [place] Tab times daily. amiodarone 2019-02 Yes 200mg QD Take [address] (PACERONE) 1-30 mg by [facility]ukes 200 MG 11:09: mouth Medical tablet 02 daily. [place] furosemide 2019-02 Yes 40mg QD Take [address] (LASIX) 40 1-30 by mouth [facility] MG tablet 11:09: daily. Medica [address] carvedilol 2019-02 Yes 6.25mg Take 6.[address] (COREG) 1-30 mg by Lukes 6.25 MG 11:09: mouth 2 Medical tablet 02 (two) Center times daily with breakfast and dinner. rosuvastati 2019-02 Yes 20mg QD Take [address] [facility] (CRESTOR) 1-30 by mouth Luke s 20 MG 11:09: daily. Medical tablet 02 Center aspirin 81 2019-02 Yes 81mg QD Take [address] MG EC 1-30 by mouth [facility] tablet 11:09: daily. Medical 02 Center clopidogreL 2019-02 Yes 75mg QD Take [address] (PLAVIX) 75 1-30 by mouth Luke s mg tablet 11:09: daily. Medica l 02 Center traMADoL 2019-02 Yes 50mg Q.5D Take [address] (ULTRAM) 50 1-14 by mouth 2 [facility] mg tablet 00:00: (two) Medical 00 times Center daily. traMADoL 2019-02 Yes 50mg Q.5D Take [address] (ULTRAM) 50 1-14 by mouth 2 [facility] [facility] mg tablet 00:00: (two) Medical 00 times Center daily. traMADoL 2019-02 Yes 50mg Q.5D Take [address] (ULTRAM) 50 1-14 by mouth 2 [facility] [facility] mg tablet 00:00: (two) Medical 00 times Center daily. traMADoL 2019-02 Yes 50mg Q.5D Take [address] (ULTRAM) 50 1-14 by mouth 2 [facility] [facility] mg tablet 00:00: (two) [facility] 00 times Center daily. NEURONTIN 0 Yes 1 PO TID Narendra narcisa 300 MG CAPS 8-10 l 00:00: NEURONTIN 2011-0 Yes 1 PO TID Narendra narcisa 300 MG CAPS 8-10 l 00:00: NEURONTIN 2011-0 Yes 1 PO TID Narendra narcisa 300 MG CAPS 8-10 l 00:00: RAMIPRIL 10 0 Yes Memori a MG CAPS 8-01 l 00:00: KLOR-CON 2011-0 Yes Memoria M20 CR-TABS 8- l 00:00: CARVEDILOL 2011-0 Yes Memoria 25 MG TABS 8- l 00:00: LORTAB 2011-0 Yes Memoria 7.5-500 MG 8-01 l TABS 00:00: LOVASTATIN 2011-0 Yes Memoria 40 MG TABS 8- l 00:00: LANTUS 100 Yes Memoria UNIT/ML 8-01 l SOLN 00:00: NEURONTIN Yes 1 po qhs Narendra narcisa 100 MG CAPS 8-01 for 3 days l 00:00: then BID [place] 00 for 3 days then 1 po qam and 2 po qhs thereafter VALIUM 5 MG Yes 1 po 30 Mem oria TABS 8-01 minutes l 00:00: prior to procedure and 1 po if needed at time of procedure RAMIPRIL 10 Yes Memori a MG CAPS 8- l 00:00: KLOR-CON Yes Memoria M20 CR-TABS 8-01 l 00:00: CARVEDILOL Yes Memoria 25 MG TABS 8- l 00:00: LORTAB Yes Memoria 7.5-500 MG 8-01 l TABS 00:00: LOVASTATIN Yes Memoria 40 MG TABS 8- l 00:00: LANTUS 100 Yes [facility]oria UNIT/ML 8- l SOLN 00:00: NEURONTIN Yes 1 po qhs Narendra narcisa 100 MG CAPS 8- for 3 days l 00:00: then BID for 3 days then 1 po qam and 2 po qhs thereafter VALIUM 5 MG Yes 1 po 30 Mem oria TABS 8- minutes l 00:00: prior to procedure and 1 po if needed at time of procedure RAMIPRIL 10 Yes Memori a MG CAPS 8- l 00:00: KLOR-CON 0 Yes Memoria M20 CR-TABS 8-01 l 00:00: CARVEDILOL Yes Memoria 25 MG TABS 8-01 l 00:00: LORTAB Yes Memoria 7.5-500 MG 8-01 l TABS 00:00: LOVASTATIN 0 Yes Memoria 40 MG TABS 8-01 l 00:00: LANTUS 100 Yes Memoria UNIT/ML 8-01 l SOLN 00:00: 00 NEURONTIN Yes 1 po qhs Narendra narcisa 100 MG CAPS 8-01 for 3 days l 00:00: then BID Jose Luis 00 for 3 days then 1 po qam and 2 po qhs thereafter VALIUM 5 MG Yes 1 po 30 Mem oria TABS 8-01 minutes l 00:00: prior to [place] 00 procedure and 1 po if needed at time of procedure Vital Signs Vital Name Observation Time Observation Value Comments Source WEIGHT 2020-01-18 05:39:00 99.111 kg HEIGHT 2020-01-18 05:39:00 162.6 cm WEIGHT 2020-01-18 05:39:00 99.111 kg HEIGHT 2020-01-18 05:39:00 162.6 cm HEIGHT 2020-01-15 08:13:00 162.6 cm WEIGHT 2020-01-15 08:13:00 100.245 kg HEIGHT 2020-01-15 08:13:00 162.6 cm WEIGHT 2020-01-15 08:13:00 100.245 kg Height 2011-09-19 17:50:36 [facility] Weight 2011-09-19 17:50:36 [facility] Procedures Procedure Date / Time Performed Performing Clinician Sourc e genitourinary review of 2011-09-19 17:50:36 Narendra rial Jose Luis systems, E&M Plan of Care Planned Activity Planned Date Details Comments Source Future Scheduled 2022-10-[address] [facility] Test 00:00:00 (Season Ended) [code = Medic al Center INFLUENZA VACCINE (Season Ended)] Future Scheduled 2022-10-[address] [facility] Test 00:00:00 (Season Ended) [code = Medic al Center Influenza Vaccine (Season Ended)] Future Scheduled 2022-10-19 Influenza Vaccine (#1) [facility] 00:00:00 [code = Influenza Medical Ce nter Vaccine (#1)] Future Scheduled 2022-02-[address] [facility] Test 00:00:00 (12+) [code = Medical Center DEPRESSION SCREENING (12+)] Future Scheduled 2022-02-18 FALLS RISK SCREENING [facility] Test 00:00:00 [code = FALLS RISK Medical C enter SCREENING] Future Scheduled 2022-02-[address] [facility] Test 00:00:00 (12+) [code = Medical Center DEPRESSION SCREENING (12+)] Future Scheduled 2022-02-18 FALLS RISK SCREENING [facility] Test 00:00:00 [code = FALLS RISK Medical C enter SCREENING] Future Scheduled 2022-02-[address] [facility] Test 00:00:00 (12+) [code = Medical Center DEPRESSION SCREENING (12+)] Future Scheduled 2022-02-18 FALLS RISK SCREENING [facility] Test 00:00:00 [code = FALLS RISK Medical C enter SCREENING] Future Scheduled 2022-02-[address] [facility] Test 00:00:00 (12+) [code = Medical Center DEPRESSION SCREENING (12+)] Future Scheduled 2022-02-18 FALLS RISK SCREENING [facility] Test 00:00:00 [code = FALLS RISK Medical C enter SCREENING] Future Scheduled 2021-10-19 INFLUENZA VACCINE (#1) [facility] 00:00:00 [code = INFLUENZA Medical Ce nter VACCINE (#1)] Future Scheduled 2021-01-[address] [facility] Test 00:00:00 Counseling and Medical Cente r Screening (12+) [code = Tobacco Cessation Counseling and Screening (12+)] Future Scheduled 2021-01-[address] [facility] Test 00:00:00 Counseling and Medical Cente r Screening (12+) [code = Tobacco Cessation Counseling and Screening (12+)] Future Scheduled 2021-01-[address] [facility] Test 00:00:00 Counseling and Medical Cente r Screening (12+) [code = Tobacco Cessation Counseling and Screening (12+)] Future Scheduled 2021-01-[address] [facility] Test 00:00:00 Counseling and Medical Cente r Screening (12+) [code = Tobacco Cessation Counseling and Screening (12+)] Future Scheduled 2019-02-[address] [facility] Test 00:00:00 WELLNESS (YEAR 2 or Medical Center FIRST YEAR if no IPPE) [code = MEDICARE ANNUAL WELLNESS (YEAR 2 or FIRST YEAR if no IPPE)] Future Scheduled 2019-02-[address] [facility] [facility] 00:00:00 WELLNESS (YEAR 2 or Medical Center FIRST YEAR if no IPPE) [code = MEDICARE ANNUAL WELLNESS (YEAR 2 or FIRST YEAR if no IPPE)] Future Scheduled 2019-02-[address] [facility] 00:00:00 WELLNESS (YEAR 2 or Medical Center FIRST YEAR if no IPPE) [code = MEDICARE ANNUAL WELLNESS (YEAR 2 or FIRST YEAR if no IPPE)] Future Scheduled 2019-02-[address] [facility] 00:00:00 WELLNESS (YEAR 2 or Medical Center FIRST YEAR if no IPPE) [code = MEDICARE ANNUAL WELLNESS (YEAR 2 or FIRST YEAR if no IPPE)] Future Scheduled 2017-06-01 PNEUMOCOCCAL 65+ YRS ([address] [facility] Test 00:00:00 - PCV) [code = Medical Cente r PNEUMOCOCCAL 65+ YRS (2 - PCV)] Future Scheduled 1996 SHINGLES VACCINES ([address] [facility] Test 00:00:00 2) [code = SHINGLES Medical Center VACCINES (1 of 2)] Future Scheduled 1996 SHINGLES VACCINES ([address] [facility] Test 00:00:00 2) [code = SHINGLES Medical Center VACCINES (1 of 2)] Future Scheduled 1996 SHINGLES VACCINES ([address] [facility] Test 00:00:00 2) [code = SHINGLES Medical Center VACCINES (1 of 2)] Future Scheduled 1996 SHINGLES VACCINES ([address] [facility] Test 00:00:00 2) [code = SHINGLES Medical Center VACCINES (1 of 2)] Future Scheduled 1965 DTAP/TDAP/TD VACCINES [facility] 00:00:00 (1 - Tdap) [code = Medical C enter DTAP/TDAP/TD VACCINES (1 - Tdap)] Future Scheduled 1965 DTAP/TDAP/TD VACCINES [facility] 00:00:00 (1 - Tdap) [code = Medical C enter DTAP/TDAP/TD VACCINES (1 - Tdap)] Future Scheduled 1965 DTAP/TDAP/TD VACCINES [facility] 00:00:00 (1 - Tdap) [code = Medical C enter DTAP/TDAP/TD VACCINES (1 - Tdap)] Future Scheduled 1965 DTAP/TDAP/TD VACCINES [facility] 00:00:00 (1 - Tdap) [code = Medical C enter DTAP/TDAP/TD VACCINES (1 - Tdap)] Future Scheduled 1964 HEPATITIS C SCREENING [facility] 00:00:00 [code = HEPATITIS C Medical Center SCREENING] Future Scheduled 1964 HEPATITIS C [facility]CRE[facility]ING [facility] 00:00:00 [code = HEPATITIS C Medical Center SCREENING] Future Scheduled 1964 HEPATITIS C [facility]CRE[facility]ING [facility] 00:00:00 [code = HEPATITIS C Medical Center SCREENING] Future Scheduled 1964 HEPATITIS C [facility]CRE[facility]ING [facility] 00:00:00 [code = HEPATITIS C Medical Center SCREENING] Future Scheduled 1947-03[birth year]14 COVID-19 VACCINE (#1) [facility] 00:00:00 [code = COVID-[address] VACCINE (#1)] Future Scheduled 1946-03-14 COVID-19 VACCINE (#1) [facility] 00:00:00 [code = COVID-[address] VACCINE (#1)] Future Scheduled 1946-03-14 COVID-19 VACCINE (#1) [facility] 00:00:00 [code = COVID-[address] VACCINE (#1)] Future Scheduled 1946-03-14 COVID-19 VACCINE (#1) [facility] 00:00:00 [code = COVID-[address] VACCINE (#1)] Future Scheduled 1946 CT Colonography (combo) [facility] 00:00:00 [code = CT Colonography [facility] (combo)] Future Scheduled 1946 Screening for malignant [facility] Test 00:00:00 neoplasm of colon Medical Ce nter (procedure) [code = 549205533] Future Scheduled 1946 Screening for malignant [facility] Test 00:00:00 neoplasm of colon Medical Ce nter (procedure) [code = 665636559] Future Scheduled 1946 DXA SCAN [code = DXA [facility] Test 00:00:00 SCAN] Medical Center Future Scheduled 1946 Screening for malignant [facility] Test 00:00:00 neoplasm of colon Medical Ce nter (procedure) [code = 732739178] Future Scheduled 1946 Screening for malignant [facility] Test 00:00:00 neoplasm of colon Medical Ce nter (procedure) [code = 367167052] Future Scheduled 1946 Sigmoidoscopy [code = [facility] 00:00:00 [code = CT Colonography [facility] Center (combo)] Future Scheduled 1946 Screening for malignant [facility] Test 00:00:00 neoplasm of colon Medical Ce nter (procedure) [code = 241474099] Future Scheduled 1946 Screening for malignant [facility] Test 00:00:00 neoplasm of colon Medical Ce nter (procedure) [code = 148547059] Future Scheduled 1946 DXA SCAN [code = DXA [facility] Test 00:00:00 SCAN] [facility] Future Scheduled 1946 Screening for malignant [facility] Test 00:00:00 neoplasm of colon Medical Ce nter (procedure) [code = 714795968] Future Scheduled 1946 Screening for malignant [facility] Test 00:00:00 neoplasm of colon Medical Ce nter (procedure) [code = 390813694] Future Scheduled 1946 Sigmoidoscopy [code = [facility] 00:00:00 Sigmoidoscopy] [facility] Future Scheduled 1946 CT Colonography (combo) [facility] 00:00:00 [code = CT Colonography [facility] Center (combo)] Future Scheduled 1946 Screening for malignant [facility] Test 00:00:00 neoplasm of colon Medical Ce nter (procedure) [code = 751697554] Future Scheduled 1946 Screening for malignant [facility] Test 00:00:00 neoplasm of colon Medical Ce nter (procedure) [code = 459499303] Future Scheduled 1946 DXA SCAN [code = DXA [facility] Test 00:00:00 SCAN] [facility] Future Scheduled 1946 Screening for malignant [facility] Test 00:00:00 neoplasm of colon Medical Ce nter (procedure) [code = 392373423] Future Scheduled 1946 Screening for malignant [facility] Test 00:00:00 neoplasm of colon Medical Ce nter (procedure) [code = 275208922] Future Scheduled 1946 Sigmoidoscopy [code = [facility] 00:00:00 Sigmoidoscopy] Medical Cente r Future Scheduled 1946 CT Colonography (combo) [facility] 00:00:00 [code = CT Colonography [facility] Center (combo)] Future Scheduled 1946 Screening for malignant [facility] Test 00:00:00 neoplasm of colon Medical Ce nter (procedure) [code = 570352947] Future Scheduled 1946 Screening for malignant [facility] Test 00:00:00 neoplasm of colon Medical Ce nter (procedure) [code = 925429495] Future Scheduled 1946 DXA SCAN [code = DXA [facility] Test 00:00:00 SCAN] [facility] Future Scheduled 1946 Screening for malignant [facility] Test 00:00:00 neoplasm of colon Medical Ce nter (procedure) [code = 195278548] Future Scheduled 1946 Screening for malignant [facility] Test 00:00:00 neoplasm of colon Medical Ce nter (procedure) [code = 682077161] Future Scheduled 1946 Sigmoidoscopy [code = [facility] 00:00:00 Sigmoidoscopy] Medical Cente r Encounters Start End Encounter Admission Attending Care Care Encounter Source Date/Time Date/Time Type Type Clinicians Facility Department ID 2020-11-25 Outpatient FRANKI, [facility] Surgery [id number] SLE 17:23:10 IAN 2022-03-16 2022-03-17 Outpatient U NWOHA, [facility] MED [id number] 16:42:00 18:29:[address] [facility] 2022-03-11 2022-03-11 Emergency [id number] [facility] 11:13:00 17:33:00 2022-03-10 2022-03-11 Emergency E [facility]REYA [facility]OWER [facility] [id number] 20:58:00 01:44:00 2020-02-03 2020-02-03 Office KWAME Doan [id number] 14:42:26 17:03:39 Visit Jayer AMBULATOR [id number] Y [id number] 2020-01-15 2020-01-15 [facility] [id number] [facility] 00:00:00 00:00:00 2019-11-25 2019-11-25 Office Franki KWAME [id number] 09:56:31 16:38:39 Visit Jayer AMBULATOR [id number] Y [id number] [id number] 2019-08-26 2019-08-26 Office Franki KWAME [id number] 09:32:20 11:46:44 Visit Jayer AMBULATOR [id number] Y [id number] [id number] 2019-05-27 2019-05-27 Office Franki KWAME [id number] 09:13:18 12:39:17 Visit Jayer AMBULATOR [id number] Y [id number] [id number] 2019-03-18 2019-03-18 Office DoanKWAME [id number] 08:40:49 09:39:44 Visit Jayer AMBULATOR [id number] Y [id number] [id number] 2019-03-04 2019-03-04 Office FrankiKWAME [id number] 09:20:10 11:54:55 Visit Jayer AMBULATOR [id number] Y [id number] 2018-11-17 2018-11-17 Office Michael Mancia KWAME [id number] 15:58:42 16:43:42 Visit AMBULATOR [id number] Y [id number] [id number] 2011-09-28 2011-09-28 Office nullFlavo [place] [id number] Memoria 00:00:00 00:00:00 Visit r Office [id number] zev Amaya 2011-09-28 2011-09-28 Office nullFlavo [place] [id number] Memoria 00:00:00 00:00:00 Visit r Office [id number] zev Amaya 2011-09-19 2011-09-19 Office nullFlavo [place] [id number] Memoria 00:00:00 00:00:00 Visit r Office [id number] zev Amaya 2011-09-19 2011-09-19 Office nullFlavo [place] [id number] Memoria 00:00:00 00:00:00 Visit r Office [id number] zev Amaya Results Test Description Test Time Test Comments Results Result Comments Source POCT-GLUCOSE METER 2020-01-18 09:24:00 Test Item Value Reference Range Interpretation Comme nts POC-GLUCOSE METER (BEAKER) 145 mg/dL 70-110 H : TESTED AT [address] (test code = 1538) BRIAN Paul [address]: Motion Picture Set Grip/Techni charo ID = [id number] for MARILU MIRANDA SARS-COV2/RT-PCR ([facility])2020-01-15 14:45:00 Test Item Value Reference Range Interpretation Comments SARS-COV2/RT-PCR (test Negative Not Detected, Negative, code = 0149303) See external report for linked test SARS-COV-2 PERFORMING LAB [facility] (test code = 7522924) Negative result for this test determines that [...] of the Act.Fact Sheet for Healthcare Prov iders:https://www.[employer]/sites/default/files/product/documents/Fact_Sheet_HC _Ppwgtszix_Ifnh_XBZE-ZsB-9.pdfFact Sheet for Healthcare Patients:https://www.[employer]/sites/default/files/product/docume nts/Tfie_Ekfyg_Tanyocgx_Fdyt_SRZE-HfV-5.pdfPerforming Laboratory:[facility], [place] [address]VMAG-VLYDPAQ METER 2019-01-16 11:39:00 Test Item Value Reference Range Interpretation Comments POC-GLUCOSE METER 100 mg/dL 70-110 : TESTED A T [facility] 6720 (BEAKER) (test code = TROYVERONICA James [facility], 1538) 44052: Motion Picture Set Grip/Techni charo ID = [id number] for BOZENA GEORGE CBC W/PLT COUNT & AUTO [id number] 10:30:00 Test Item Value Reference Range Interpretation [...] 3438) Received comment: User comments: Slide comments:POCT-GLUCOSE [id number] 08:27:00 Test Item Value Reference Range Interpretation Comments POC-GLUCOSE METER 90 mg/dL 70-110 : TESTED A T [facility] 6720 (BEAKER) (test code = [facility], 1538) 46518: Motion Picture Set Grip/Techni charo ID = [id number] for BOZENA GOLDBERG BASIC METABOLIC [id number] 05:15:00 Test Item Value Reference Range Interpretation [...] NOT APPLICABLE FOR DIALYSIS PATIEN TS. POCT-GLUCOSE [id number] 20:27:00 Test Item Value Reference Range Interpretation Comments POC-GLUCOSE METER 119 mg/dL 70-110 H : TESTED A T [facility] 6720 (BEAKER) (test code = [facility], 1538) 63199: Motion Picture Set Grip/Techni charo ID = [id number] for Jeffery Boone POCT-GLUCOSE [id number] 17:11:00 Test Item Value Reference Range Interpretation Comments POC-GLUCOSE METER 122 mg/dL 70-110 H : TESTED A T [facility] 6720 (BEAKER) (test code = [facility], 1538) 78753: Motion Picture Set Grip/Techni charo ID = [id number] for Ec at, Cecella POCT-GLUCOSE [id number] 13:01:00 Test Item Value Reference Range Interpretation Comments POC-GLUCOSE METER 113 mg/dL 70-110 H : TESTED A T [facility] 6720 (BEAKER) (test code = [facility], 1538) 60904: Motion Picture Set Grip/Techni charo ID = [id number] for NICO NORIEGA CHIRY POCT-GLUCOSE [id number] 08:45:00 Test Item Value Reference Range Interpretation Comments POC-GLUCOSE METER 98 mg/dL 70-110 : TESTED A T [facility] 6720 (BEAKER) (test code = [facility], 1538) 58015: Motion Picture Set Grip/Techni charo ID = [id number] for DENI INANA POCT-GLUCOSE [id number] 21:07:00 Test Item Value Reference Range Interpretation Comments POC-GLUCOSE METER 84 mg/dL 70-110 : TESTED A T [facility] 6720 (BEAKER) (test code = [facility], 1538) 38348: Motion Picture Set Grip/Techni charo ID = [id number] for Pk Hammonds POCT-GLUCOSE [id number] 16:47:00 Test Item Value Reference Range Interpretation Comments POC-GLUCOSE METER 108 mg/dL 70-110 : TESTED A T [facility] 6720 (BEAKER) (test code = [facility], 1538) 03531: Motion Picture Set Grip/Techni charo ID = [id number], [place] POCT-GLUCOSE [id number] 15:12:00 Test Item Value Reference Range Interpretation Comments POC-GLUCOSE METER 118 mg/dL 70-110 H : TESTED A T [facility] 6720 (BEAKER) (test code = [facility], 1538) 47580: Motion Picture Set Grip/Techni charo ID = [id number] for DA VIOLETA FONTENOTO POCT-GLUCOSE [id number] 15:04:00 Test Item Value Reference Range Interpretation Comments POC-GLUCOSE METER 127 mg/dL 70-110 H : TESTED A T [facility] 6720 (BEAKER) (test code = [facility], 1538) 42198: Motion Picture Set Grip/Techni charo ID = [id number] for HU NTER, HI[place]A POCT-GLUCOSE [id number] 14:34:00 Test Item Value Reference Range Interpretation Comments POC-GLUCOSE METER 89 mg/dL 70-110 : TESTED A T [facility] 6720 [facility] (test code = [facility], 1538) 79705: Motion Picture Set Grip/Techni charo ID = [id number] for [facility], [place] POCT-GLUCOSE [id number] 13:53:00 Test Item Value Reference Range Interpretation Comments POC-GLUCOSE METER 137 mg/dL 70-110 H : TESTED A T [facility] 6720 (BEAKER) (test code = [facility], 1538) 86558: Motion Picture Set Grip/Techni charo ID = [id number], [place] POCT-GLUCOSE [id number] 12:44:00 Test Item Value Reference Range Interpretation Comments POC-GLUCOSE METER 125 mg/dL 70-110 H : TESTED A T [facility] 6720 (BEAKER) (test code = [facility], 1538) 40735: Motion Picture Set Grip/Techni charo ID = [id number] for OC CRUZ POCT-GLUCOSE [id number] 08:33:00 Test Item Value Reference Range Interpretation Comments POC-GLUCOSE METER 112 mg/dL 70-110 H : TESTED A T [facility] 6720 (BEAKER) (test code = [facility], 1538) 33077: Motion Picture Set Grip/Techni charo ID = [id number] for ANA PALACIO POCT-GLUCOSE [id number] 07:56:00 Test Item Value Reference Range Interpretation Comments POC-GLUCOSE METER 96 mg/dL 70-110 : TESTED A T [facility] 6720 (BEAKER) (test code = [facility] [place], 1538) 45760: Motion Picture Set Grip/Techni charo ID = [id number] for Danica Pennington BASIC METABOLIC [id number] 07:07:00 Test Item Value Reference Range Interpretation [...] PATIEN TS. CBC W/PLT COUNT & AUTO [id number] 06:52:00 Test Item Value Reference Range Interpretation [...] PERCENT (BEAKER) (test code = 2801) POCT-GLUCOSE [id number] 21:36:00 Test Item Value Reference Range Interpretation Comments POC-GLUCOSE METER 143 mg/dL 70-110 H : TESTED A T [facility] 6720 (BEAKER) (test code = [facility], 1538) 72098: Motion Picture Set Grip/Techni charo ID = [id number] for TORY FONTENOT RODGER POCT-GLUCOSE [id number] 19:20:00 Test Item Value Reference Range Interpretation Comments POC-GLUCOSE METER 117 mg/dL 70-110 H : TESTED A T [facility] 6720 (BEAKER) (test code = [facility], 1538) 69763: Motion Picture Set Grip/Techni charo ID = [id number] for RODGER JONES POCT-GLUCOSE [id number] 09:30:00 Test Item Value Reference Range Interpretation Comments POC-GLUCOSE METER 100 mg/dL 70-110 : TESTED A T [facility] 6720 (BEAKER) (test code = [facility] [place], 1538) 56445: Motion Picture Set Grip/Techni charo ID = [id number] for ANA PALACIO BASIC METABOLIC [id number] 05:18:00 Test Item Value Reference Range Interpretation [...] PATIEN TS. CBC W/PLT COUNT & AUTO [id number] 04:37:00 Test Item Value Reference Range Interpretation [...] PERCENT (BEAKER) (test code = 2801) POCT-GLUCOSE [id number] 20:59:00 Test Item Value Reference Range Interpretation Comments POC-GLUCOSE METER 95 mg/dL 70-110 : TESTED A Emiliana [facility] 6720 (BEAKER) (test code = [facility] [place], 1538) 98163: Motion Picture Set Grip/Techni charo ID = [id number] for WALE Jose Armando RODGER POCT-GLUCOSE [id number] 17:08:00 Test Item Value Reference Range Interpretation Comments POC-GLUCOSE METER 90 mg/dL 70-110 : TESTED A T [facility] 6720 (BEAKER) (test code = [facility], 1538) 72994: Motion Picture Set Grip/Techni charo ID = [id number] for BELLE CHAPA POCT-GLUCOSE [id number] 12:10:00 Test Item Value Reference Range Interpretation Comments POC-GLUCOSE METER 118 mg/dL 70-110 H : TESTED A T [facility] 6720 (BEFLORIN) (test code = [facility] James [facility], 1538) 76831: Motion Picture Set Grip/Techni charo ID = [id number] for BELLE GRIFFITHS U/S, RENAL, [id number] 10:37:00Reason for exam:->ckdFINAL REPORT TECHNIQUE: Grayscale ultrasound [...] Verified Date/Time: 01/11/2019 10:37:05 Reading Location: [address] Body Reading Room POCT- GLUCOSE [id number] 09:22:00 Test Item Value Reference Range Interpretation Comments POC-GLUCOSE METER 75 mg/dL 70-110 : TESTED A T [facility] 6720 (BEAKER) (test code = [facility] James [facility], 1538) 93677: Motion Picture Set Grip/Techni charo ID = [id number] for CICI DRISCOLL [id number] 04:57:00 Test Item Value Reference Range Interpretation Comments PHOSPHORUS (BEAKER) (test code = 2.8 mg/dL 2.3-4.7 604) [id number] 04:57:00 Test Item Value Reference Range Interpretation Comments MAGNESIUM (BEAKER) (test code = 1.9 mg/dL 1.6-2.6 627) BASIC METABOLIC [id number] 04:57:00 Test Item Value Reference Range Interpretation [...] PATIEN TS. CBC W/PLT COUNT & AUTO [id number] 04:32:00 Test Item Value Reference Range Interpretation [...] PERCENT (BEAKER) (test code = 2801) POCT-GLUCOSE [id number] 22:26:00 Test Item Value Reference Range Interpretation Comments POC-GLUCOSE METER 95 mg/dL 70-110 : TESTED A T [facility] 6720 (BEAKER) (test code = [facility], 1538) 23630: Motion Picture Set Grip/Techni charo ID = [id number] for Miguel asBeena POCT-GLUCOSE [id number] 17:04:00 Test Item Value Reference Range Interpretation Comments POC-GLUCOSE METER 98 mg/dL 70-110 : TESTED A T [facility] 6720 (BEAKER) (test code = [facility], 1538) 07842: Motion Picture Set Grip/Techni charo ID = [id number] for BELLE CHAPA PTH, [id number] 16:02:00 Test Item Value Reference Range Interpretation Comments PARATHYROID HORMONE INTACT 200.6 pg/mL 8.5-72.5 H (BEAKER) (test code = 577) CBC W/PLT COUNT & AUTO [id number] 15:09:00 Test Item Value Reference Range Interpretation [...] PERCENT (BEAKER) (test code = 2801) POCT-GLUCOSE [id number] 11:53:00 Test Item Value Reference Range Interpretation Comments POC-GLUCOSE METER 132 mg/dL 70-110 H : TESTED A T [facility] 6720 (BEAKER) (test code = [facility], 1538) 73398: Motion Picture Set Grip/Techni charo ID = [id number] for Cici Isaacs POCT-GLUCOSE [id number] 09:42:00 Test Item Value Reference Range Interpretation Comments POC-GLUCOSE METER 112 mg/dL 70-110 H : TESTED A T [facility] 6720 (BEAKER) (test code = [facility], 1538) 81956: Motion Picture Set Grip/Techni charo ID = [id number] for Cici Isaacs URIC [id number] 09:14:00 Test Item Value Reference Range Interpretation Comments URIC ACID (BEAKER) (test code = 7.3 mg/dL 2.6-7.2 H 773) [id number] 06:14:00 Test Item Value Reference Range Interpretation Comments PHOSPHORUS (BEAKER) (test code = 2.8 mg/dL 2.3-4.7 604) [id number] 06:14:00 Test Item Value Reference Range Interpretation Comments MAGNESIUM (BEAKER) (test code = 1.9 mg/dL 1.6-2.6 627) BASIC METABOLIC [id number] 06:14:00 Test Item Value Reference Range Interpretation [...] NOT APPLICABLE FOR DIALYSIS PATIEN TS. POCT-GLUCOSE [id number] 21:33:00 Test Item Value Reference Range Interpretation Comments POC-GLUCOSE METER 113 mg/dL 70-110 H : TESTED A T [facility] 6720 (BEDaily Dealy) (test code = [facility], 153) 81711: Motion Picture Set Grip/Techni charo ID = [id number] for RODGER JONES POCT-GLUCOSE [id number] 17:16:00 Test Item Value Reference Range Interpretation Comments POC-GLUCOSE METER 113 mg/dL 70-110 H : TESTED A T [facility] 6720 (BEAKER) (test code = [facility], 1538) 46454: Motion Picture Set Grip/Techni charo ID = [id number] for RIDDHI AGUILAR POCT-GLUCOSE [id number] 12:17:00 Test Item Value Reference Range Interpretation Comments POC-GLUCOSE METER 166 mg/dL 70-110 H : TESTED A T [facility] 6720 (BEAKER) (test code = [facility], 1538) 39170: Motion Picture Set Grip/Techni charo ID = [id number] for AMOS RICHARDSONDRA CHINTAN POCT-GLUCOSE [id number] 07:51:00 Test Item Value Reference Range Interpretation Comments POC-GLUCOSE METER 143 mg/dL 70-110 H : TESTED A T [facility] 6720 ([employer]) (test code = [facility], 1538) 72463: Motion Picture Set Grip/Techni charo ID = [id number] for Pe Sheela hardingza [id number] 06:28:00 Test Item Value Reference Range Interpretation Comments MAGNESIUM (BEAKER) 1.8 mg/dL 1.6-2.6 Specimen slightly (test code = 627) hemolyzed [id number] 06:28:00 Test Item Value Reference Range Interpretation Comments PHOSPHORUS (BEAKER) 2.5 mg/dL 2.3-4.7 Specimen slightly (test code = 604) hemolyzed BASIC METABOLIC [id number] 06:28:00 Test Item Value Reference Range Interpretation [...] PATIEN TS. CBC W/PLT COUNT & AUTO [id number] 04:20:00 Test Item Value Reference Range Interpretation [...] 0-1 PERCENT (BEAKER) (test code = 2801) [id number] 17:40:00 Test Item Value Reference Range Interpretation Comments PHOSPHORUS (BEAKER) (test code = 3.3 mg/dL 2.3-4.7 604) [id number] 17:40:00 Test Item Value Reference Range Interpretation Comments MAGNESIUM (BEAKER) (test code = 1.8 mg/dL 1.6-2.6 627) BASIC METABOLIC [id number] 17:40:00 Test Item Value Reference Range Interpretation [...] S NOT APPLICABLE FOR DIALYSIS PATIEN TS. [id number] 17:03:00 Test Item Value Reference Range Interpretation [...] mechanical heart valves.CBC W/PLT COUNT & AUTO [id number] 16:56:00 Test Item Value Reference Range Interpretation [...] PERCENT (BEAKER) (test code = 2801) POCT-GLUCOSE [id number] 16:55:00 Test Item Value Reference Range Interpretation Comments POC-GLUCOSE METER 200 mg/dL 70-110 H : TESTED Amy T [facility] 6720 (BEAKER) (test code = [facility] [place], 1538) 38618: Motion Picture Set Grip/Techni charo ID = [id number] for JOSE DENNEY [id number] 13:51:00 Test Item Value Reference Range Interpretation Comments ACTIVATED CLOTTING TIME 274 sec Refe rence Range: 74-137 (BEAKER) (test code = second s, 441) Baseline/TESTED AT [place] [id number] [facility] 7703 0 [id number] 13:51:00 Test Item Value Reference Range Interpretation Comments ACTIVATED CLOTTING TIME 323 sec Refe rence Range: 74-137 (BEAKER) (test code = second s, 441) Baseline/TESTED AT [address] 7703 0 CBC W/PLT COUNT & AUTO [id number] 07:44:00 Test Item Value Reference Range Interpretation [...] PERCENT (BEAKER) (test code = 2801) POCT-GLUCOSE [id number] 06:13:00 Test Item Value Reference Range Interpretation Comments POC-GLUCOSE METER 123 mg/dL 70-110 H : TESTED A T [facility] 6720 (BEAKER) (test code [facility], = 1538) 79180: Motion Picture Set Grip/Techni charo ID = [id number] for JORD AN, LACRYSTAL PLATELET [id number] 11:27:00 Test Item Value Reference Range Interpretation Comments PLATELET COUNT (BEAKER) (test 112 K/CU MM 150-450 L code = 756) [id number] 11:07:00 Test Item Value Reference Range Interpretation Comments GLUCOSE RANDOM (BEAKER) (test code 134 mg/dL 70-105 H = 652) BUN AND [id number] 11:07:00 Test Item Value Reference Range Interpretation [...] S NOT APPLICABLE FOR DIALYSIS PATIEN TS. [id number] 11:07:00 Test Item Value Reference Range Interpretation Comments SODIUM (BEAKER) (test code = 381) 138 meq/L 136-145 POTASSIUM (BEAKER) (test code = 4.7 meq/L 3.5-5.1 379) CHLORIDE (BEAKER) (test code = 382) 107 meq/L 98-107 CO2 (BEAKER) (test code = 355) 26 meq/L 22-29 [id number] 10:54:00 Test Item Value Reference Range Interpretation Comments HEMOGLOBIN (BEAKER) (test code = 13.1 GM/DL 11.2-15.7 410) PET, CARDIAC PERFUSION MULTIPLE STUDIES, REST AND [id number] 16:17:00 Reason for Exam:->i73.9, e11.9, i25.10FINAL REPORT PROCEDURE: MYOCARDIAL PERFUSION PET IMAGING (Rest/Stress)CPT CODE: 12477 INDICATION: Known CAD CARDIOVASCULAR PROFILE:CAD History: Known CAD, CHFSymptoms: NoneRisk Factors: CAD, diabetes, hypertension, dyslipidemia, PAD, family history early CADBMI: 42.7Medications: Amiodarone, aspirin, carvedilol, furosemide, Plavix, Crestor, Entresto STRESS PROTOCOL:Pharmacologic stress was achieved with a 10-second intravenous infusion of regadenoson 0.4 mg. The radiopharmaceutical was administered 30 seconds after the start of the regadenoson infusion. IMAGING PROTOCOL:Limitedlow-dose CT imaging was performed for attenuation correction. 40.1 mCi of Rb-82 chloride was injected intravenously at rest, and gated PET images were obtained. Then, 40.1 mCi of Rb- 82 chloride was injected intravenously at peak stress, and gated PET images were obtained. Image quality is good. REST FINDINGS:HR: 59/minBP: 134/49 mmHgPrelim. EKG: Sinus bradycardia.Perfusion: Normal.Wall Motion: Globalhypokinesis (LVEF 38%).LV Volume: Normal.RV Volume: Normal. STRESS FINDINGS:HR: 65/min (43% of MPHR)BP: 134/49 mmHgPrelim. EKG: No ischemic changes.Symptoms: None (treatment not required).Perfusion: Normal.Wall Motion: Global hypokinesis (LVEF 44%).LV Volume: Not significantly changed from rest. IMPRESSION:1. Normal study.2. Normal myocardial perfusion. 3. Decreased resting LVEF, which does not deteri orate with pharmacologic stress.4. Normal extracardiac tracer distribution.5. There is no prior study for comparison. Signed: Darrell Naidu MDReport Verified Date/Time: 11/26/2018 16:17:24 Reading Location: [address] Reading Room [facility] METABOLIC [id number] 11:28:00 Test Item Value Reference Range Interpretation [...] PATIEN TS. CBC W/PLT COUNT & AUTO [id number] 11:19:00 Test Item Value Reference Range Interpretation [...] (BEAKER) (test code = 2801) BASIC METABOLIC [id number] 14:13:00 Test Item Value Reference Range Interpretation [...] PATIEN TS. CBC W/PLT COUNT & AUTO [id number] 13:54:00 Test Item Value Reference Range Interpretation [...]
[2022-08-20] MEDS ORDERED: MAGNES/ALUMIN/SIMET 30ML UCUP ONE (14:57)
[2022-08-20] MEDS ORDERED: FAMOTIDINE 20 MG/2 ML VIAL IV ONE (14:57)
[2022-08-20] MEDS ORDERED: MORPHINE 4 MG/ML SYR ONE (14:57)
[2022-08-20] MEDS ORDERED: ONDANSETRON 4 MG/2 ML VIAL ONE (14:57)
[2022-08-20 15:23] LABS: Absolute Lymphocytes (CBC) 0.7 K/uL (0.7-4.9); Hematocrit 42.1 % (36.0-45.0); Lymphocytes % 15.7 % (15.3-44.8); MCV 91.1 fL (80-100); MPV 10.2 fL (7.6-11.3); RBC Red Blood Cell Count 4.63 M/uL (3.86-4.86)
[2022-08-20 15:30] LABS: Specific Gravity 1.015 (1.005-1.030); Urine Bacteria <20 /HPF (<20); Urine Bilirubin NEGATIVE (Negative); Urine Blood Negative (Negative); Urine Clarity Clear (Clear); Urine Color Light-Yellow (Yellow); Urine Glucose NEGATIVE (Negative); Urine Mucus Slight /HPF (None Seen); Urine Protein TRACE (Negative); Urine RBC <5 /HPF (None Seen); Urine Urobilinogen Normal (Normal); Urine pH 7.5 (5.0-7.0)
[2022-08-20 16:07] LABS: Albumin 3.8 g/dL (3.4-5.0); Bilirubin Total 0.3 mg/dL (0.2-1.0); Potassium 3.3 mEq/L (3.5-5.1); Protein, Total 7.7 g/dL (6.4-8.2); Troponin High Sensitivity 17.7 pg/mL (<58.9)
--- NOTE | 2022-08-20 17:12 | RAD REPORT ---
EXAM DESCRIPTION: CT - Abdomen Pelvis Wo Contrast - 08/20/2022 5:01 pm CLINICAL HISTORY: Abdominal pain. ABD PAIN COMPARISON: Abdomen Pelvis Wo Contrast dated 05/29/2017 TECHNIQUE: CT imaging of the abdomen and pelvis was performed without contrast. Solid organ, bowel a nd vascular assessment is limited due to lack of IV and oral contrast. All CT scans are performed using dose optimization technique as appropriate and may include automated exposure control or mA/KV adjustment according to patient size. FINDINGS: The lower lung coleman are clear.Pacer wires are noted. The liver, spleen, pancreas, adrenal glands and kidneys are within normal limits for a limited non-co ntrast examination. No bowel obstruction, free air, free fluid or abscess. The appendix is not identified as a discrete structure, however, no secondary findings of appendicitis are identified. Moderate lower lumbar degenerative changes. IMPRESSION: No acute intra-abdominal or pelvic findings. A limited non-contrast examination was performed as detailed.
--- NOTE | 2022-08-20 17:30 | EDPHYS ---
Physician Documentation [facility] Name: Sangita Hendrix Age: 76 yrs Sex: Female : 1945 Arrival Date: 08/20/2022 Time: 14:27 Bed 15 Private MD: ED Physician Moises Stiles HPI: 08/20 15:01 This 76 yrs old Black Female presents to ER via Ambulatory with complaints of Abdominal rt Pain, Nausea. 15:01 Patient presents to the ED with abdominal pain, nausea, diarrhea starting today at rt about 12. Patient has never had similar pains previously. Pain is mostly epigastric. She denies other acute complaints at this time. Symptoms are moderate in severity, aching nature, nonradiating otherwise, no other aggravating alleviating factors.. Historical: - Allergies: 14:42 PENICILLINS; mb9 - Home Meds: 14:42 clopidogrel 75 mg oral tablet daily [Active]; memantine 10 mg oral tablet [Active]; mb9 amiodarone 200 mg Oral tablet once [Active]; furosemide 40 mg Oral tablet [Active]; tramadol 50 mg Oral tablet once [Active]; rosuvastatin 20 mg oral tablet [Active]; carvedilol 6.25 mg oral tablet [Active]; Entresto 24-26 mg oral tablet [Active]; gabapentin 300 mg oral capsule [Active]; insulin glargine subcutaneous Sub-Q [Active]; - PMHx: 14:42 BRADYCARDIA; CHF; Dementia; Diabetes - IDDM; Gout; Pacemaker; GERD; Hiatal Hernia; mb9 - PSHx: 14:42 Cholecystectomy; hysterectomy; mb9 - Immunization history:: Adult Immunizations up to date. - Social history:: Smoking status: Patient denies any tobacco usage or history of. - Family history:: not pertinent. ROS: 15:01 Constitutional: Negative for fever, chills, and weight loss, Cardiovascular: Negative rt for chest pain, palpitations, and edema, Respiratory: Negative for shortness of breath, cough, wheezing, and pleuritic chest pain, MS/Extremity: Negative for injury and deformity, Skin: Negative for injury, rash, and discoloration, Neuro: Negative for headache, weakness, numbness, tingling, and seizure, Psych: Negative for depression, anxiety, suicide ideation, homicidal ideation, and hallucinations. 15:01 Abdomen/GI: Positive for abdominal pain, nausea, vomiting, and diarrhea. Exam: 15:01 Constitutional: This is a well developed, well nourished patient who is awake, alert, rt and in no acute distress. Head/Face: Normocephalic, atraumatic. Chest/axilla: Normal chest wall appearance and motion. Nontender with no deformity. No lesions are appreciated. Cardiovascular: Regular rate and rhythm with a normal S1 and S2. No gallops, murmurs, or rubs. Normal PMI, no JVD. No pulse deficits. Respiratory: Lungs have equal breath sounds bilaterally, clear to auscultation and percussion. No rales, rhonchi or wheezes noted. No increased work of breathing, no retractions or nasal flaring. Skin: Warm, dry with normal turgor. Normal color with no rashes, no lesions, and no evidence of cellulitis. MS/ Extremity: Pulses equal, no cyanosis. Neurovascular intact. Full, normal range of motion. Neuro: Awake and alert, GCS 15, oriented to person, place, time, and situation. Cranial nerves II-XII grossly intact. Motor strength 5/5 in all extremities. Sensory grossly intact. Cerebellar exam normal. Normal gait. Psych: Awake, alert, with orientation to person, place and time. Behavior, mood, and affect are within normal limits. 15:01 Abdomen/GI: Tenderness to the epigastrium, mild guarding, no rebound, no abdominal distention. 15:03 ECG was reviewed by the Attending Physician. rt Vital Signs: 14:40 BP 158 / 61; Pulse 57; Resp 18; Pulse Ox 100% on R/A; Weight 108.86 kg; Height 5 ft. 7 mb9 in. ; Pain 10/10; 14:54 BP 158 / 61; Pulse 61; Resp 16; Temp 98; Pulse Ox 96% ; bp 17:27 BP 157 / 56; Pulse 60; Resp 16; Pulse Ox 98% ; bp 14:40 Body Mass Index 37.59 (108.86 kg, 170.18 cm) mb9 14:40 Pain Scale: Adult mb9 MDM: 14:32 Patient medically screened. rt 17:33 Differential diagnosis: Nonspecific abd pain, gastritis, cholecystitis, pancreatitis, rt Colitis, bowel obstruction. Data reviewed: vital signs, nurses notes, lab test result(s), EKG, radiologic studies. I considered the following discharge prescriptions or medication management in the emergency department Medications were administered in the Emergency Department. See MAR. Independent interpretation of the following test(s) in the Emergency Department CT Scan: My interpretation is No bowel obstruction seen on my interpretation of the CT scan images. Care significantly affected by the following chronic conditions: Congestive Heart Failure, Chronic Kidney Disease. Counseling: I had a detailed discussion with the patient and/or guardian regarding: the historical points, exam findings, and any diagnostic results supporting the discharge/admit diagnosis, lab results, radiology results, the need for outpatient follow up. Counseling: I had a detailed discussion with the patient and/or guardian regarding: to return to the emergency department if symptoms worsen or persist or if there are any questions or concerns that arise at home. Response to treatment: the patient's symptoms have markedly improved after treatment. 08/20 14:41 Order name: CBC with Diff; Complete Time: 16:01 rt 08/20 14:41 Order name: CMP; Complete Time: 16:15 rt 08/20 14:41 Order name: Lipase; Complete Time: 16:15 rt 08/20 14:41 Order name: Urinalysis w/ reflexes; Complete Time: 16:01 rt 08/20 14:41 Order name: Troponin High Sensitivity; Complete Time: 16:15 rt 08/20 16:18 Order name: Abdomen ; Complete Time: 17:14 EDMS 08/20 14:41 Order name: EKG; Complete Time: 14:44 rt 08/20 14:41 Order name: IV Saline Lock; Complete Time: 15:24 rt 08/20 14:41 Order name: Labs collected and sent; Complete Time: 15:24 rt 08/20 14:41 Order name: EKG - Nurse/Tech; Complete Time: 14:54 rt EC:03 Rate is 59 beats/min. Rhythm is regular, Sinus bradycardia with Occasional PVCs. QRS rt [place] is Normal. LA interval is normal. QRS interval is normal. QT interval is normal. No Q waves. Clinical impression: NSR w/ Non-specific ST/T Changes. Administered Medications: 15:00 Drug: Famotidine IVP 20 mg Route: IVP; Site: left antecubital; bp 17:46 Follow up: Response: No adverse reaction bp 15:00 Drug: Ondansetron IVP 4 mg Route: IVP; Site: left antecubital; bp 17:46 Follow up: Response: No adverse reaction bp 15:00 Drug: morphine IVP or IV 4 mg Route: IVP; Infused Over: 4 mins; Site: left antecubital; bp 17:46 Follow up: Response: No adverse reaction bp 15:00 Drug: Alum-Mag Hydroxide-Simeth PO Suspension (200 mg-200 mg-20 mg/5 mL) 30 ml Route: bp PO; 17:46 Follow up: Response: No adverse reaction bp Disposition Summary: 08/20/22 17:29 Discharge Ordered Location: Home rt Problem: new rt Symptoms: have improved rt Condition: Stable rt Diagnosis - Abdominal pain, unspecified rt Followup: rt - With: Private Physician - When: 2 - 3 days - Reason: Followup: rt - With: Emergency Department - When: - Reason: Worsening of condition Discharge Instructions: - Discharge Summary Sheet rt - Abdominal Pain, Adult rt - Gastroesophageal Reflux Disease, Adult rt Forms: - Medication Reconciliation Form rt - Thank You Letter rt - Antibiotic Education rt - Prescription Opioid Use rt - [email or web address].htm rt Prescriptions: - sucralfate 100 mg/mL Oral suspension - take 10 milliliter by ORAL route once; 150 milliliter; Refills: 0, Product rt Selection Permitted - Protonix 40 mg Oral Tablet - take 1 tablet by ORAL route once daily; 30 tablet; Refills: 0, Product rt Selection Permitted Signatures: Dispatcher [employer] Wilton Pineda RN ANAMARIA Erlinda White RN RN mb9 Moises Stiles MD MD rt Corrections: (The following items were deleted from the chart) 16:18 14:44 Abdomen Pelvis W Con+CT.RAD.BRZ ordered. EDMS EDMS
--- NOTE | 2022-08-20 17:30 | ER ---
Nurse's Notes [facility] Name: Sangita Hendrix Age: 76 yrs Sex: Female : 1945 Arrival Date: 08/20/2022 Time: 14:27 Bed 15 Private MD: Diagnosis: Abdominal pain, unspecified Presentation: 08/20 14:40 Chief complaint: Patient states: "N/D that started today. I'm having middle stomach mb9 pain really bad." Pt denies sob and vomiting. Coronavirus screen: Vaccine status: Patient reports receiving the 2nd dose of the covid vaccine. Ebola Screen: No symptoms or risks identified at this time. Initial Sepsis Screen: Does the patient meet any 2 criteria? No. Patient's initial sepsis screen is negative. Does the patient have a suspected source of infection? No. Patient's initial sepsis screen is negative. Risk Assessment: Do you want to hurt yourself or someone else? Patient reports no desire to harm self or others. Onset of symptoms was August 20, 2022. 14:40 Method Of Arrival: Ambulatory 9 14:40 Acuity: MADISYN 3 mb9 Triage Assessment: 14:55 General: Appears in no apparent distress. uncomfortable, Behavior is appropriate for bp age. Pain: Complains of pain in abdomen. EENT: No deficits noted. Neuro: No deficits noted. Cardiovascular: No deficits noted. Respiratory: No deficits noted. GI: Abdomen is non-distended, Reports diarrhea, nausea. : No signs and/or symptoms were reported regarding the genitourinary system. Derm: No deficits noted. Musculoskeletal: No deficits noted. Historical: - Allergies: 14:42 PENICILLINS; mb9 - Home Meds: 14:42 clopidogrel 75 mg oral tablet daily [Active]; memantine 10 mg oral tablet [Active]; mb9 amiodarone 200 mg Oral tablet once [Active]; furosemide 40 mg Oral tablet [Active]; tramadol 50 mg Oral tablet once [Active]; rosuvastatin 20 mg oral tablet [Active]; carvedilol 6.25 mg oral tablet [Active]; Entresto 24-26 mg oral tablet [Active]; gabapentin 300 mg oral capsule [Active]; insulin glargine subcutaneous Sub-Q [Active]; - PMHx: 14:42 BRADYCARDIA; CHF; Dementia; Diabetes - IDDM; Gout; Pacemaker; GERD; Hiatal Hernia; mb9 - PSHx: 14:42 Cholecystectomy; hysterectomy; mb9 - Immunization history:: Adult Immunizations up to date. - Social history:: Smoking status: Patient denies any tobacco usage or history of. - Family history:: not pertinent. Screenin:47 [facility] ED Fall Risk Assessment (Adult) History of falling in the last 3 months, mb9 including since admission No falls in past 3 months (0 pts) Confusion or Disorientation No (0 pts) Intoxicated or Sedated No (0 pts) Impaired Gait No (0 pts) Mobility Assist Device Used No (0 pt) Altered Elimination No (0 pt) Score/Fall Risk Level 0 - 2 = Low Risk Oriented to surroundings, Maintained a safe environment, Educated pt \\T\\ family on fall prevention, incl call for assistance when getting out of bed. Abuse screen: Denies threats or abuse. Nutritional screening: No deficits noted. Tuberculosis screening: No symptoms or risk factors identified. Assessment: 14:56 General: SEE TRIAGE NOTE. bp 17:28 Reassessment: Patient appears in no apparent distress at this time. Patient is alert, bp oriented x 3, equal unlabored respirations, skin warm/dry/pink. 17:45 Reassessment: DC HOME AMBULATORY. bp Vital Signs: 14:40 BP 158 / 61; Pulse 57; Resp 18; Pulse Ox 100% on R/A; Weight 108.86 kg; Height 5 ft. 7 mb9 in. ; Pain 10/10; 14:54 BP 158 / 61; Pulse 61; Resp 16; Temp 98; Pulse Ox 96% ; bp 17:27 BP 157 / 56; Pulse 60; Resp 16; Pulse Ox 98% ; bp 14:40 Body Mass Index 37.59 (108.86 kg, 170.18 cm) mb9 14:40 Pain Scale: Adult mb9 ED Course: 14:30 Patient arrived in ED. im 14:31 Moises Stiles MD is Attending Physician. rt 14:35 Wilton Tripp, ANAMARIA is Primary Nurse. bp 14:40 Arm band placed on. mb9 14:42 Triage completed. mb9 14:56 Patient has correct armband on for positive identification. Bed in low position. Call bp light in reach. Side rails up X2. Adult w/ patient. 15:10 Inserted saline lock: 22 gauge in left antecubital area, using aseptic technique. Blood bp collected. 17:04 Abdomen In Process Unspecified. EDMS 17:45 No provider procedures requiring assistance completed. IV discontinued, intact, bp bleeding controlled, No redness/swelling at site. Pressure dressing applied. Administered Medications: 15:00 Drug: Famotidine IVP 20 mg Route: IVP; Site: left antecubital; bp 17:46 Follow up: Response: No adverse reaction bp 15:00 Drug: Ondansetron IVP 4 mg Route: IVP; Site: left antecubital; bp 17:46 Follow up: Response: No adverse reaction bp 15:00 Drug: morphine IVP or IV 4 mg Route: IVP; Infused Over: 4 mins; Site: left antecubital; bp 17:46 Follow up: Response: No adverse reaction bp 15:00 Drug: Alum-Mag Hydroxide-Simeth PO Suspension (200 mg-200 mg-20 mg/5 mL) 30 ml Route: bp PO; 17:46 Follow up: Response: No adverse reaction bp Medication: 14:56 VIS not applicable for this client. bp Outcome: 17:29 Discharge ordered by . rt 17:45 Discharged to home ambulatory, with family. bp 17:45 Condition: stable 17:45 Discharge instructions given to patient, family, Instructed on discharge instructions, follow up and referral plans. medication usage, Demonstrated understanding of instructions, follow-up care, medications, Prescriptions given X 2. 17:47 Patient left the ED. bp Signatures: Dispatcher [employer] EDMS Wilton Tripp RN RN bp Erlinda White RN RN mb9 Moises Stiles MD MD rt Britta Monahan im
[2022-08-20 18:04] VITALS: TEMP 98
[2022-08-20 18:08] VITALS: BP 157/56; O2SAT 98
--- NOTE | 2022-08-22 12:35 | EKG ---
Test Date: 2022-08-20 Test Time: 14:53:02 Clinical Ob: LAKESHA MEASUREMENT RESULTS: Intervals: Rate: 58 UT: 220 QRSD: 116 QT: 516 QTc: 506 [place]: P: 69 UT: 220 QRS: -17 T: 44 INTERPRETIVE STATEMENTS: Sinus bradycardia with 1st degree AV block Low voltage QRS Septal infarct, age undetermined Abnormal ECG Compared to ECG 03/09/2022 13:38:31 No significant changes Electronically Signed On 08-22-22 12:33:16 CDT by Lee Garza
--- NOTE | 2022-08-22 12:35 | EKG ---
Test Date: 2022-08-20 Test Time: 14:53:33 Sql Ssrs Developer: LAKESHA MEASUREMENT RESULTS: Intervals: Rate: 59 NH: 216 QRSD: 120 QT: 512 QTc: 506 [place]: P: 71 NH: 216 QRS: -18 T: 42 INTERPRETIVE STATEMENTS: Sinus bradycardia with 1st degree AV block with occasional premature ventricular complexes Low voltage QRS Septal infarct, age undetermined Possible Lateral infarct, age undetermined Abnormal ECG Compared to ECG 08/20/2022 14:53:02 Ventricular premature complex(es) now present Myocardial infarct finding still present Electronically Signed On 08-22-22 12:33:14 CDT by Lee Garza
== END 2022-08-20 17:47 | disposition home or self-care (01) ==
LOC: ER 14:27
DX: R10.13 Epigastric pain (principal); R11.0 Nausea; I50.9 Heart failure, unspecified; E11.9 Type 2 diabetes mellitus without complications; Z95.0 Presence of cardiac pacemaker; Z88.0 Allergy status to penicillin
CPT/HCPCS: 93005 ×2; 85025; 81001; 36415; 84484; 83690; 80053; 74176; 96375; 96374; 99284; J2405

== ENCOUNTER 2022-12-23 04:37 | Observation (INO) | payer OTHER ==
--- OUTSIDE RECORDS SUMMARY | 2022-12-23 04:42 | XMS REPORT | Continuity of Care Document ---
:1945 Author Organization [facility] t Address [address] [facility] [address] [place] [address] Care Team Providers Name Role Phone VIC FORTUNE Primary Care Physician Unavailable Kameron Chambers Attending Clinician Unavailable MORRIS NUNN Attending Clinician Unavailable MORRIS NUNN Admitting Clinician Unavailable Payers Payer Name Policy Type Policy Number Effective Date Expiration Date Jose Armando mitchell [facility] MEDICARE [id number] 2022 ADVANTAGE 00:00:00 HU[employer]NA PPO SELECT [id number] 2018 ASO 00:00:00 HU[employer] MEDICARE [id number] 2018 ADV 00:00:00 Problems Condition Condition Condition Status Onset Resolution Last Treating Co mments Source Name Details Category Date Date Treatment Clinician Date 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 ([place], [place]) s with s with intermitte intermitte nt nt claudicati claudicati on, on, bilateral bilateral legs legs Peripheral Peripheral Disease Recurre [facility] artery artery nce 9-16 [facility] disease disease 00:00: Medical 00 Center PAD PAD Disease Recurre [facility] (periphera (periphera nce 4-30 Soledad kes l artery l artery 00:00: Medica l disease) disease) 00 Center LUMBAR LUMBAR Condition Active 2011-09-28 Me moria SPONDYLOLI SPONDYLOLI 09-18 09:50:05 l STHESIS STHESIS 00:00: [place] Active 00 09/19/2011 Condition 09/28/2011 [facility] DIABETES DIABETES Condition Inactiv 2011-09-28 Memoria MELLITUS MELLITUS e 09:50:05 l Inactive [place] Condition 09/28/2011 [facility] HYPERTENSI HYPERTENS Condition Inactiv 2011-09-28 Memoria ON ION e 09:50:05 l Inactive [place] Condition 09/28/2011 [facility] LUMBAR LUMBAR Condition Inactiv 2011-09-28 M emoria RADICULOPA RADICULOPA e 09:50:05 l THY THY Jose Luis Inactive Condition 09/28/2011 [facility] DISC DISC Condition Inactiv 2011-09-28 Me moria DISEASE, DISEASE, e 09:50:05 l LUMBAR LUMBAR [place] Inactive Condition 09/28/2011 [facility] SPINAL SPINAL Condition Inactiv 2011-09-28 M emoria STENOSIS, STENOSIS, e 09:50:05 l LUMBAR LUMBAR [place] Inactive Condition 09/28/2011 [facility] [...] Date Stop Date Source Never smoked tobacco [facility] [place] [facility] Medications Ordered Filled Start Stop Current Ordering [...] MG 11:09: mouth Medical tablet 02 daily. [place] furosemide 2019-02 Yes 40mg QD Take [address] (LASIX) 40 1-30 by mouth [facility] MG tablet 11:09: daily. Medica l 02 [place] carvedilol 2019-02 Yes 6.25mg Take 6.[address] [facility] (COREG) 1-30 mg by [facility] 6.25 MG 11:09: mouth 2 Medical tablet 02 (two) Center times daily with breakfast and dinner. rosuvastati 2019-02 Yes 20mg QD Take [address] n (CRESTOR) 1-30 by mouth Luke s 20 MG 11:09: daily. Medical tablet [address] [place] [address] aspirin 81 2019-02 Yes 81mg QD Take [address] MG EC 1-30 by mouth [facility] tablet 11:09: daily. Medical 02 [place] clopidogreL 2019-02 Yes 75mg QD Take [address] (PLAVIX) 75 1-30 by mouth Luke s mg tablet 11:09: daily. Medica l 02 [place] insulin 2019-02 Yes 20U Inject 20 CHI [...] MG 11:09: mouth Medical tablet 02 daily. [place] furosemide 2019-02 Yes 40mg QD Take [address] (LASIX) 40 1-30 by mouth [facility] MG tablet 11:09: daily. Medica l [address] [place] [address] carvedilol 2019-02 Yes 6.25mg Take 6.[address] (COREG) 1-30 mg by [facility]ukes 6.25 MG 11:09: mouth 2 Medical tablet 02 (two) Center times daily with breakfast and dinner. rosuvastati 2019-02 Yes 20mg QD Take [address] n (CRESTOR) 1-30 by mouth Luke s 20 MG 11:09: daily. Medical tablet 02 [place] aspirin 81 2019-02 Yes 81mg QD Take [address] MG EC 1-30 by mouth [facility] tablet 11:09: daily. Medical [address] [place] [address] clopidogreL 2019-02 Yes 75mg QD Take [address] (PLAVIX) 75 1-30 by mouth Luke s mg tablet 11:09: daily. Medica l [address] [place] [address] insulin 2019-02 Yes 20U Inject 20 CHI [...] MG 11:09: mouth Medical tablet 02 daily. [place] furosemide 2019-02 Yes 40mg QD Take [address] (LASIX) 40 1-30 by mouth [facility] MG tablet 11:09: daily. Medica l [address] [place] [address] carvedilol 2019-02 Yes 6.25mg Take 6.[address] (COREG) 1-30 mg by Lukes 6.25 MG 11:09: mouth 2 Medical tablet 02 (two) Center times daily with breakfast and dinner. rosuvastati 2019-02 Yes 20mg QD Take [address] n (CRESTOR) 1-30 by mouth Luke s 20 MG 11:09: daily. Medical tablet 02 [place] aspirin 81 2019-02 Yes 81mg QD Take [address] MG EC 1-30 by mouth [facility] tablet 11:09: daily. [address] clopidogreL 2019-02 Yes 75mg QD Take [address] (PLAVIX) 75 1-30 by mouth Luke s mg tablet 11:09: daily. Medica l 02 [place] insulin 2019-02 Yes 20U Inject 20 CHI [...] MG 11:09: mouth Medical tablet 02 daily. [place] furosemide 2019-02 Yes 40mg QD Take [address] (LASIX) 40 1-30 by mouth [facility] MG tablet 11:09: daily. Medica l [address] [place] [address] carvedilol 2019-02 Yes 6.25mg Take 6.[address] (COREG) 1-30 mg by Lukes 6.25 MG 11:09: mouth 2 Medical tablet 02 (two) Center times daily with breakfast and dinner. rosuvastati 2019-02 Yes 20mg QD Take [address] [facility] (CRESTOR) 1-30 by mouth Luke s 20 MG 11:09: daily. Medical tablet 02 [place] aspirin 81 2019-02 Yes 81mg QD Take [address] MG EC 1-30 by mouth [facility] tablet 11:09: daily. [facility] 02 [place] clopidogreL 2019-02 Yes 75mg QD Take [address] (PLAVIX) 75 1-30 by mouth Luke s mg tablet 11:09: daily. Medica l 02 [place] insulin 2019-02 Yes 20U Inject 20 CHI [...] MG tablet 11:09: daily. Medica l 02 [place] carvedilol 2019-02 Yes 6.25mg Take 6.[address] (COREG) 1-30 mg by Lukes 6.25 MG 11:09: mouth 2 Medical tablet 02 (two) Center times daily with breakfast and dinner. rosuvastati 2019-02 Yes 20mg QD Take [address] n (CRESTOR) 1-30 by mouth Luke s 20 MG 11:09: daily. Medical tablet 02 [place] aspirin 81 2019-02 Yes 81mg QD Take [address] MG EC 1-30 by mouth [facility] tablet 11:09: daily. Medical 02 Center clopidogreL 2019-02 Yes 75mg QD Take [address] (PLAVIX) 75 1-30 by mouth Luke s mg tablet 11:09: daily. Medica l 02 [place] insulin 2019-02 Yes 20U Inject 20 CHI [...] MG 11:09: mouth Medical tablet 02 daily. [place] furosemide 2019-02 Yes 40mg QD Take [address] (LASIX) 40 1-30 by mouth [facility] MG tablet 11:09: daily. Medica l [address] [place] [address] carvedilol 2019-02 Yes 6.25mg Take 6.[address] (COREG) 1-30 mg by [facility]ukes 6.25 MG 11:09: mouth 2 Medical tablet 02 (two) Center times daily with breakfast and dinner. rosuvastati 2019-02 Yes 20mg QD Take [address] n (CRESTOR) 1-30 by mouth Luke s 20 MG 11:09: daily. Medical tablet 02 [place] aspirin 81 2019-02 Yes 81mg QD Take [address] MG EC 1-30 by mouth [facility] tablet 11:09: daily. Medical [address] [place] [address] clopidogreL 2019-02 Yes 75mg QD Take [address] (PLAVIX) 75 1-30 by mouth Luke s mg tablet 11:09: daily. Medica l [address] [place] [address] insulin 2019-02 Yes 20U Inject 20 CHI [...] MG 11:09: mouth Medical tablet 02 daily. [place] furosemide 2019-02 Yes 40mg QD Take [address] (LASIX) 40 1-30 by mouth [facility] MG tablet 11:09: daily. Medica l [address] [place] [address] carvedilol 2019-02 Yes 6.25mg Take 6.[address] (COREG) 1-30 mg by Lukes 6.25 MG 11:09: mouth 2 Medical tablet 02 (two) Center times daily with breakfast and dinner. rosuvastati 2019-02 Yes 20mg QD Take [address] n (CRESTOR) 1-30 by mouth Luke s 20 MG 11:09: daily. Medical tablet 02 [place] aspirin 81 2019-02 Yes 81mg QD Take [address] MG EC 1-30 by mouth [facility] tablet 11:09: daily. Medical 02 [place] clopidogreL 2019-02 Yes 75mg QD Take [address] (PLAVIX) 75 1-30 by mouth Luke s mg tablet 11:09: daily. Medica l 02 [place] insulin 2019-02 Yes 20U Inject 20 CHI [...] MG 11:09: mouth Medical tablet 02 daily. [place] furosemide 2019-02 Yes 40mg QD Take [address] (LASIX) 40 1-30 by mouth [facility] MG tablet 11:09: daily. Medica [address] carvedilol 2019-02 Yes 6.25mg Take 6.[address] (COREG) 1-30 mg by [facility]ukes 6.25 MG 11:09: mouth 2 Medical tablet 02 (two) Center times daily with breakfast and dinner. rosuvastati 2019-02 Yes 20mg QD Take [address] n (CRESTOR) 1-30 by mouth Luke s 20 MG 11:09: daily. Medical tablet [address] [place] [address] aspirin 81 2019-02 Yes 81mg QD Take [address] MG EC 1-30 by mouth [facility] tablet 11:09: daily. [address] clopidogreL 2019-02 Yes 75mg QD Take [address] (PLAVIX) 75 1-30 by mouth Luke s mg tablet 11:09: daily. Medica l 02 [place] insulin 2019-02 Yes 20U Inject 20 CHI [...] MG 11:09: mouth Medical tablet 02 daily. [place] furosemide 2019-02 Yes 40mg QD Take [address] (LASIX) 40 1-30 by mouth [facility] MG tablet 11:09: daily. Medica l 02 [place] carvedilol 2019-02 Yes 6.25mg Take 6.[address] (COREG) 1-30 mg by [facility]ukes 6.25 MG 11:09: mouth 2 Medical tablet 02 (two) Center times daily with breakfast and dinner. rosuvastati 2019-02 Yes 20mg QD Take [address] n (CRESTOR) 1-30 by mouth Luke s 20 MG 11:09: daily. Medical tablet 02 [place] aspirin 81 2019-02 Yes 81mg QD Take [address] MG EC 1-30 by mouth [facility] tablet 11:09: daily. Medical 02 [place] clopidogreL 2019-02 Yes 75mg QD Take [address] (PLAVIX) 75 1-30 by mouth Luke s mg tablet 11:09: daily. Medica l 02 [place] insulin 2019-02 Yes 20U Inject 20 CHI [...] MG 11:09: mouth Medical tablet 02 daily. [place] furosemide 2019-02 Yes 40mg QD Take [address] (LASIX) 40 1-30 by mouth [facility] MG tablet 11:09: daily. Medica l 02 [place] carvedilol 2019-02 Yes 6.25mg Take 6.25 [facility]I [...] 1-30 by mouth [facility] tablet 11:09: daily. [facility] 02 Center clopidogreL 2019-02 Yes 75mg QD [...] 00:00: (two) Medical 00 times Center daily. NEURONTIN Yes 1 PO TID Narendra narcisa 300 MG CAPS 8-10 l 00:00: RAMIPRIL 10 Yes Memori a MG CAPS 8-01 l 00:00: KLOR-CON Yes Memoria M20 CR-TABS 8- l 00:00: CARVEDILOL Yes Memoria 25 MG TABS 8-01 l 00:00: LORTAB Yes Memoria 7.5-500 MG 8-01 l TABS 00:00: LOVASTATIN Yes Memoria 40 MG TABS 8- l 00:00: LANTUS 100 Yes Memoria UNIT/ML 8-01 l SOLN 00:00: NEURONTIN Yes 1 po qhs Narendra narcisa 100 MG CAPS 8 for 3 days l 00:00: then BID for 3 days then 1 po qam and 2 po qhs thereafter VALIUM 5 MG Yes 1 po 30 Mem oria TABS 8-01 minutes l 00:00: prior to procedure and 1 po if needed at time of procedure Vital Signs Vital Name Observation Time Observation Value Comments Source HEIGHT 2020-01-18 05:39:00 162.6 cm WEIGHT 2020-01-18 05:39:00 99.111 kg HEIGHT 2020-01-18 05:39:00 162.6 cm WEIGHT 2020-01-18 05:39:00 99.111 kg HEIGHT 2020-01-15 08:13:00 162.6 cm WEIGHT 2020-01-15 08:13:00 100.245 kg HEIGHT 2020-01-15 08:13:00 162.6 cm WEIGHT 2020-01-15 08:13:00 100.245 kg Height 2011-09-19 17:50:36 [facility] Weight 2011-09-19 17:50:36 [facility] Procedures Procedure Date / Time Performed Performing Clinician Sourc e genitourinary review of 2011-09-19 17:50:36 Narendra alfonso [place] [facility], E&M Plan of Care Planned Activity Planned Date Details Comments Source Future Scheduled 2022-10-19 Influenza Vaccine (#1) [facility] 00:00:00 [code = Influenza Medical Ce nter Vaccine (#1)] Future Scheduled 2022-10-19 Influenza Vaccine (#1) [facility] 00:00:00 [code = Influenza Medical Ce nter Vaccine (#1)] Future Scheduled 2022-10-19 Influenza Vaccine (#1) [facility] 00:00:00 [code = Influenza Medical Ce nter Vaccine (#1)] Future Scheduled 2022-10-19 Influenza Vaccine (#1) [facility] 00:00:00 [code = Influenza Medical Ce nter Vaccine (#1)] Future Scheduled 2022-10-19 Influenza Vaccine (#1) [facility] 00:00:00 [code = Influenza Medical Ce nter Vaccine (#1)] Future Scheduled 2022-10-19 Influenza Vaccine (#1) [facility] 00:00:00 [code = Influenza Medical Ce nter Vaccine (#1)] Future Scheduled 2022-10-[address] [facility] [facility] Test 00:00:00 2) [code = SHINES [facility] VACCINES (1 of 2)] Future Scheduled [...] [facility] Test 00:00:00 [code = COVID-[address] VACCINE (#1)] Future Scheduled 1946-03-14 COVID-19 [...] [address] ter VACCINE (#1)] Future Scheduled 1945 DXA SCAN [code = DXA [facility] 00:00:00 SCAN] [facility] Future Scheduled 1946 DXA SCAN [code = DXA [facility] Test 00:00:00 SCAN] [facility] Future Scheduled 1946 CT Colonography (combo) [facility] Test 00:00:00 [code = CT Colonography [facility] (combo)] Future Scheduled 1946 Screening for malignant [facility] Test 00:00:00 neoplasm of colon Medical Ce nter (procedure) [code = 716102047] Future Scheduled 1946 DXA SCAN [code = DXA [facility] Test 00:00:00 SCAN] [facility] Future Scheduled 1946 Screening for malignant [facility] Test 00:00:00 neoplasm of colon Medical Ce nter (procedure) [code = 572779953] Future Scheduled 1946 DXA SCAN [code = DXA [facility] Test 00:00:00 SCAN] [facility] Future Scheduled 1946 DXA SCAN [code = DXA [facility] Test 00:00:00 SCAN] [facility] Future Scheduled 1946 Screening for malignant [facility] Test 00:00:00 neoplasm of colon Medical Ce nter (procedure) [code = 979985091] Future Scheduled 1946 Screening for malignant [facility] Test 00:00:00 neoplasm of colon Medical Ce nter (procedure) [code = 638984610] Future Scheduled 1946 DXA SCAN [code = DXA [facility] Test 00:00:00 SCAN] [facility] Future Scheduled 1946 Sigmoidoscopy [code = [facility] 00:00:00 Sigmoidoscopy] [facility] Future Scheduled 1946 CT Colonography (combo) [facility] Test 00:00:00 [code = CT Colonography [facility] (combo)] Future Scheduled 1946 Screening for malignant [facility] Test 00:00:00 neoplasm of colon Medical Ce nter (procedure) [code = 782908707] Future Scheduled 1946 Screening for malignant [facility] Test 00:00:00 neoplasm of colon Medical Ce nter (procedure) [code = 863344612] Future Scheduled 1946 DXA SCAN [code = DXA [facility] Test 00:00:00 SCAN] [facility] Future Scheduled 1946 Screening for malignant [facility] Test 00:00:00 neoplasm of colon Medical Ce nter (procedure) [code = 604029796] Future Scheduled 1946 Screening for malignant [facility] Test 00:00:00 neoplasm of colon Medical Ce nter (procedure) [code = 676799538] Future Scheduled 1946 Sigmoidoscopy [code = [facility] 00:00:00 Sigmoidoscopy] [facility] Future Scheduled 1946 CT Colonography (combo) [facility] 00:00:00 [code = CT Colonography [facility] (combo)] Future Scheduled 1946 Screening for malignant [facility] Test 00:00:00 neoplasm of colon Medical Ce nter (procedure) [code = 379033949] Future Scheduled 1946 Screening for malignant [facility] Test 00:00:00 neoplasm of colon Medical Ce nter (procedure) [code = 685864717] Future Scheduled 1946 DXA SCAN [code = DXA [facility] Test 00:00:00 SCAN] [facility] Future Scheduled 1946 Screening for malignant [facility] Test 00:00:00 neoplasm of colon Medical Ce nter (procedure) [code = 985418987] Future Scheduled 1946 Screening for malignant [facility] Test 00:00:00 neoplasm of colon Medical Ce nter (procedure) [code = 041091475] Future Scheduled 1946 Sigmoidoscopy [code = [facility] 00:00:00 Sigmoidoscopy] [facility] Future Scheduled 1946 CT Colonography (combo) [facility] Test 00:00:00 [code = CT Colonography Medi [facility] (combo)] Future Scheduled 1946 Screening for malignant [facility] Test 00:00:00 neoplasm of colon Medical Ce nter (procedure) [code = 019507695] Future Scheduled 1946 Screening for malignant [facility] Test 00:00:00 neoplasm of colon Medical Ce nter (procedure) [code = 804555667] Future Scheduled 1946 DXA SCAN [code = DXA [facility] Test 00:00:00 SCAN] [facility] Future Scheduled 1946 Screening for malignant [facility] Test 00:00:00 neoplasm of colon Medical Ce nter (procedure) [code = 778546371] Future Scheduled 1946 Screening for malignant [facility] Test 00:00:00 neoplasm of colon Medical Ce nter (procedure) [code = 846888996] Future Scheduled 1946 Sigmoidoscopy [code = [facility] 00:00:00 Sigmoidoscopy] [facility] Future Scheduled 1946 DXA SCAN [code = DXA [facility] Test 00:00:00 SCAN] [facility] Encounters Start End Encounter Admission Attending Care Care Encounter Source Date/Time Date/Time Type Type Clinicians Facility Department ID 2022-12-05 Outpatient ANYA Chambers [facility] [id number] Common 09:29:01 Kameron [id number] [facility] - [facility] 2022-08-23 Outpatient [facility] [id number] [place] 10:14:16 [id number] Health 2020-11-25 Outpatient NUNN, [facility] Surgery [id number] SLE 17:23:10 MORRIS 2020-01-15 2020-01-15 Outpatient [facility] [id number] SLE 00:00:00 00:00:00 2011-09-28 2011-09-28 Office nullFlavo [place] [id number] Memoria 00:00:00 00:00:00 Visit r Office [id number] zev Amaya 2011-09-19 2011-09-19 Office nullFlavo [place] [id number] [facility] 00:00:00 00:00:00 Visit r Office [id number] zev Amaya Results Test Description Test Time Test Comments Results Result Comments Source POCT-GLUCOSE METER 2020-01-18 09:24:00 Test Item Value Reference Range Interpretation Comme nts POC-GLUCOSE METER (BEAKER) 145 mg/dL 70-110 H : TESTED AT [address] (test code = 1538) BRIAN Paul [address]: Horse Groomer/Techni charo ID = [id number] for MARILU MIRANDA SARS-COV2/RT-PCR ([facility])2020-01-15 14:45:00 Test Item Value Reference Range Interpretation Comments SARS-COV2/RT-PCR (test Negative Not Detected, Negative, code = 5956085) See external report for linked test SARS-COV-2 PERFORMING LAB [facility] ROSALBA (test code = 4428002) Negative result for this test determines that [...] of the Act.Fact Sheet for Healthcare Prov iders:https://www.Dotspin/sites/default/files/product/documents/Fact_Sheet_HC _Hvuilzaxf_Xeeq_JJUL-HfQ-4.pdfFact Sheet for Healthcare Patients:https://www.Dotspin/sites/default/files/product/docume nts/Tbaw_Iqzch_Eupgynqa_Sudz_FVEV-YjK-0.pdfPerforming Laboratory:[facility], [place] [address]TYXM-[id number] METER 2019-01-16 11:39:00 Test Item Value Reference Range Interpretation Comments POC-GLUCOSE METER 100 mg/dL 70-110 : TESTED A T [facility] 6720 (BEAKER) (test code = JOSE G James [facility], 1538) 86816: Horse Groomer/Techni charo ID = [id number] for BOZENA GEORGE CBC W/PLT COUNT & AUTO [id number] 10:30:00 Test Item Value Reference Range Interpretation [...] 3438) Received comment: User comments: Slide comments:POCT-GLUCOSE [id number] 08:27:00 Test Item Value Reference Range Interpretation Comments POC-GLUCOSE METER 90 mg/dL 70-110 : TESTED A T [facility] 6720 (BEAKER) (test code = JOSE G T[place], 1538) 32284: Horse Groomer/Techni charo ID = [id number] for BOZENA GOLDBERG BASIC METABOLIC [id number] 05:15:00 Test Item Value Reference Range Interpretation [...] NOT APPLICABLE FOR DIALYSIS PATIEN TS. POCT-GLUCOSE [id number] 20:27:00 Test Item Value Reference Range Interpretation Comments POC-GLUCOSE METER 119 mg/dL 70-110 H : TESTED A T [facility] 6720 (BEAKER) (test code = [facility], 1538) 05015: Horse Groomer/Techni charo ID = [id number] for Go jasonales, Jeffery POCT-GLUCOSE [id number] 17:11:00 Test Item Value Reference Range Interpretation Comments POC-GLUCOSE METER 122 mg/dL 70-110 H : TESTED A T [facility] 6720 ([employer]acon) (test code = [facility], 1538) 11007: Horse Groomer/Techni charo ID = [id number] for Ec at, Cecella POCT-GLUCOSE [id number] 13:01:00 Test Item Value Reference Range Interpretation Comments POC-GLUCOSE METER 113 mg/dL 70-110 H : TESTED A T [facility] 6720 (Health[employer]ER) (test code = [facility], 1538) 75579: Horse Groomer/Techni charo ID = [id number] for NICO NORIEGA, CHIANNA POCT-GLUCOSE [id number] 08:45:00 Test Item Value Reference Range Interpretation Comments POC-GLUCOSE METER 98 mg/dL 70-110 : TESTED A T [facility] 6720 (BEAKER) (test code = [facility] [employer] [facility], 1538) 06491: Horse Groomer/Techni charo ID = [id number] for MART IN, CHIANNA POCT-GLUCOSE [id number] 21:07:00 Test Item Value Reference Range Interpretation Comments POC-GLUCOSE METER 84 mg/dL 70-110 : TESTED A T [facility] 6720 (BEAKER) (test code = [facility], 1538) 52268: Horse Groomer/Techni charo ID = [id number] for Pk Hammonds POCT-GLUCOSE [id number] 16:47:00 Test Item Value Reference Range Interpretation Comments POC-GLUCOSE METER 108 mg/dL 70-110 : TESTED A T [facility] 6720 (BEAKER) (test code = [facility], 1538) 73537: Horse Groomer/Techni charo ID = [id number], Hiwitha POCT-GLUCOSE [id number] 15:12:00 Test Item Value Reference Range Interpretation Comments POC-GLUCOSE METER 118 mg/dL 70-110 H : TESTED A T [facility] 6720 (BEAKER) (test code = [facility], 1538) 32159: Horse Groomer/Techni charo ID = [id number] for DA VIS, RODGER POCT-GLUCOSE [id number] 15:04:00 Test Item Value Reference Range Interpretation Comments POC-GLUCOSE METER 127 mg/dL 70-110 H : TESTED A T [facility] 6720 (BEAKER) (test code = [facility], 1538) 01090: Horse Groomer/Techni charo ID = [id number] for HU NTER, HIWITHA POCT-GLUCOSE [id number] 14:34:00 Test Item Value Reference Range Interpretation Comments POC-GLUCOSE METER 89 mg/dL 70-110 : TESTED A T [facility] 6720 (BEAKER) (test code = [facility], 153) 30325: Horse Groomer/Techni charo ID = [id number] for BATEMAN ER, HIWITHA POCT-GLUCOSE [id number] 13:53:00 Test Item Value Reference Range Interpretation Comments POC-GLUCOSE METER 137 mg/dL 70-110 H : TESTED A T [facility] 6720 (BEAKER) (test code = [facility], 153) 74164: Horse Groomer/Techni hcaro ID = [id number], [place] POCT-GLUCOSE [id number] 12:44:00 Test Item Value Reference Range Interpretation Comments POC-GLUCOSE METER 125 mg/dL 70-110 H : TESTED A T [facility] 6720 (BEAKER) (test code = [facility], 1538) 63189: Horse Groomer/Techni charo ID = [id number] for OC CRUZ POCT-GLUCOSE [id number] 08:33:00 Test Item Value Reference Range Interpretation Comments POC-GLUCOSE METER 112 mg/dL 70-110 H : TESTED A T [facility] 6720 (BEAKER) (test code = JOSE G James [place], 1538) 40597: Horse Groomer/Techni charo ID = [id number] for ANA PALACIO POCT-GLUCOSE [id number] 07:56:00 Test Item Value Reference Range Interpretation Comments POC-GLUCOSE METER 96 mg/dL 70-110 : TESTED A T [facility] 6720 (BEAKER) (test code = JOSE G James [facility], 1538) 72301: Horse Groomer/Techni charo ID = [id number] for Danica Pennington BASIC METABOLIC [id number] 07:07:00 Test Item Value Reference Range Interpretation [...] PATIEN TS. CBC W/PLT COUNT & AUTO [id number] 06:52:00 Test Item Value Reference Range Interpretation [...] PERCENT (BEAKER) (test code = 2801) POCT-GLUCOSE [id number] 21:36:00 Test Item Value Reference Range Interpretation Comments POC-GLUCOSE METER 143 mg/dL 70-110 H : TESTED A T [facility] 6720 (BEAKER) (test code = JOSE G T[place], 1538) 62493: Horse Groomer/Techni charo ID = [id number] for DA VIS, RODGER POCT-GLUCOSE [id number] 19:20:00 Test Item Value Reference Range Interpretation Comments POC-GLUCOSE METER 117 mg/dL 70-110 H : TESTED A T [facility] 6720 (BEAKER) (test code = JOSE G James [place], 1538) 28155: Horse Groomer/Techni charo ID = [id number] for RODGER JONES POCT-GLUCOSE [id number] 09:30:00 Test Item Value Reference Range Interpretation Comments POC-GLUCOSE METER 100 mg/dL 70-110 : [facility]ED [facility] T [facility] 6720 (BEAKER) (test code = JOSE G James [facility], 1538) 549[address]: Horse Groomer/Techni charo ID = [id number] for ANA PALACIO BASIC METABOLIC [id number] 05:18:00 Test Item Value Reference Range Interpretation [...] PATIEN TS. CBC W/PLT COUNT & AUTO [id number] 04:37:00 Test Item Value Reference Range Interpretation [...] PERCENT (BEAKER) (test code = 2801) POCT-GLUCOSE [id number] 20:59:00 Test Item Value Reference Range Interpretation Comments POC-GLUCOSE METER 95 mg/dL 70-110 : TESTED A Billy [facility] 6720 (BEAKER) (test code = BERTNE R [place], 1538) 64018: Horse Groomer/Techni charo ID = [id number] for RODGER SPARKS POCT-GLUCOSE [id number] 17:08:00 Test Item Value Reference Range Interpretation Comments POC-GLUCOSE METER 90 mg/dL 70-110 : TESTED A T [facility] 6720 (BEAKER) (test code = JOSE G James [facility], 1538) 14528: Horse Groomer/Techni charo ID = [id number] for BELLE CHAPA POCT-GLUCOSE [id number] 12:10:00 Test Item Value Reference Range Interpretation Comments POC-GLUCOSE METER 118 mg/dL 70-110 H : TESTED A T [facility] 6720 (BEAKER) (test code = JOSE G James [facility], 153) 21588: Horse Groomer/Techni charo ID = [id number] for BELLE GRIFFITHS U/S, RENAL, [id number] 10:37:00Reason for exam:->ckdFINAL REPORT TECHNIQUE: Grayscale ultrasound [...] MDReport Verified Date/Time: 01/11/2019 10:37:05 Reading Location: [facility] C013Y CT Body Reading Room POCT- GLUCOSE [id number] 09:22:00 Test Item Value Reference Range Interpretation Comments POC-GLUCOSE METER 75 mg/dL 70-110 : TESTED A T [facility] 6720 (BEAKER) (test code = JOSE G James [facility], 1538) 62156: Horse Groomer/Techni charo ID = [id number] for CICI DRISCOLL [id number] 04:57:00 Test Item Value Reference Range Interpretation Comments PHOSPHORUS (BEAKER) (test code = 2.8 mg/dL 2.3-4.7 604) [id number] 04:57:00 Test Item Value Reference Range Interpretation Comments MAGNESIUM (BEAKER) (test code = 1.9 mg/dL 1.6-2.6 627) BASIC METABOLIC [id number] 04:57:00 Test Item Value Reference Range Interpretation [...] PATIEN TS. CBC W/PLT COUNT & AUTO [id number] 04:32:00 Test Item Value Reference Range Interpretation [...] PERCENT (BEAKER) (test code = 2801) POCT-GLUCOSE [id number] 22:26:00 Test Item Value Reference Range Interpretation Comments POC-GLUCOSE METER 95 mg/dL 70-110 : TESTED A T [facility] 6720 (BEAKER) (test code = JOSE G [place], 1538) 21021: Horse Groomer/Techni charo ID = [id number] for Beena Reed POCT-GLUCOSE [id number] 17:04:00 Test Item Value Reference Range Interpretation Comments POC-GLUCOSE METER 98 mg/dL 70-110 : TESTED A T [facility] 6720 (BEAKER) (test code = JOSE G [place], 1538) 30545: Horse Groomer/Techni charo ID = [id number] for BELLE CHAPA PTH, [id number] 16:02:00 Test Item Value Reference Range Interpretation Comments PARATHYROID HORMONE INTACT 200.6 pg/mL 8.5-72.5 H (BEAKER) (test code = 577) CBC W/PLT COUNT & AUTO [id number] 15:09:00 Test Item Value Reference Range Interpretation [...] PERCENT (BEAKER) (test code = 2801) POCT-GLUCOSE [id number] 11:53:00 Test Item Value Reference Range Interpretation Comments POC-GLUCOSE METER 132 mg/dL 70-110 H : TESTED A T [facility] 6720 (BEAKER) (test code = [facility] Jacob [facility], 1538) 04545: Horse Groomer/Techni charo ID = [id number] for Cici Isaacs POCT-GLUCOSE [id number] 09:42:00 Test Item Value Reference Range Interpretation Comments POC-GLUCOSE METER 112 mg/dL 70-110 H : TESTED A T [facility] 6720 (BEAKER) (test code = [facility] [employer] [facility], 1538) 71529: Horse Groomer/Techni charo ID = [id number] for Main Isaacswitha URIC [id number] 09:14:00 Test Item Value Reference Range Interpretation Comments URIC ACID (BEAKER) (test code = 7.3 mg/dL 2.6-7.2 H 773) [id number] 06:14:00 Test Item Value Reference Range Interpretation Comments PHOSPHORUS (BEAKER) (test code = 2.8 mg/dL 2.3-4.7 604) [id number] 06:14:00 Test Item Value Reference Range Interpretation Comments MAGNESIUM (BEAKER) (test code = 1.9 mg/dL 1.6-2.6 627) BASIC METABOLIC [id number] 06:14:00 Test Item Value Reference Range Interpretation [...] NOT APPLICABLE FOR DIALYSIS PATIEN TS. POCT-GLUCOSE [id number] 21:33:00 Test Item Value Reference Range Interpretation Comments POC-GLUCOSE METER 113 mg/dL 70-110 H : TESTED A T [facility] 6720 (BEAKER) (test code = [facility], 153) 56331: Horse Groomer/Techni charo ID = [id number] for DA VIOLETA FONTENOTO POCT-GLUCOSE [id number] 17:16:00 Test Item Value Reference Range Interpretation Comments POC-GLUCOSE METER 113 mg/dL 70-110 H : TESTED A T [facility] 6720 (BEAKER) (test code = [facility], 153) 56795: Horse Groomer/Techni charo ID = [id number] for TORO CLARA RIDDHI POCT-GLUCOSE [id number] 12:17:00 Test Item Value Reference Range Interpretation Comments POC-GLUCOSE METER 166 mg/dL 70-110 H : TESTED A T [facility] 6720 (BEAKER) (test code = [facility], 1538) 67516: Horse Groomer/Techni charo ID = [id number] for AMOS DEL VALLE CHINTAN POCT-GLUCOSE [id number] 07:51:00 Test Item Value Reference Range Interpretation Comments POC-GLUCOSE METER 143 mg/dL 70-110 H : TESTED A T [facility] 6720 (BEAKER) (test code = [facility], 1538) 70778: Horse Groomer/Techni charo ID = [id number] for Pe rfasNeena [id number] 06:28:00 Test Item Value Reference Range Interpretation Comments MAGNESIUM (BEAKER) 1.8 mg/dL 1.6-2.6 Specimen slightly (test code = 627) hemolyzed [id number] 06:28:00 Test Item Value Reference Range Interpretation Comments PHOSPHORUS (BEAKER) 2.5 mg/dL 2.3-4.7 Specimen slightly (test code = 604) hemolyzed BASIC METABOLIC [id number] 06:28:00 Test Item Value Reference Range Interpretation [...] PATIEN TS. CBC W/PLT COUNT & AUTO [id number] 04:20:00 Test Item Value Reference Range Interpretation [...] % 0-1 PERCENT (BEAKER) (test code = 2808) [id number] 17:40:00 Test Item Value Reference Range Interpretation Comments PHOSPHORUS (BEAKER) (test code = 3.3 mg/dL 2.3-4.7 604) [id number] 17:40:00 Test Item Value Reference Range Interpretation Comments MAGNESIUM (BEAKER) (test code = 1.8 mg/dL 1.6-2.6 627) BASIC METABOLIC [id number] 17:40:00 Test Item Value Reference Range Interpretation [...] S NOT APPLICABLE FOR DIALYSIS PATIEN TS. [id number] 17:03:00 Test Item Value Reference Range Interpretation [...] mechanical heart valves.CBC W/PLT COUNT & AUTO [id number] 16:56:00 Test Item Value Reference Range Interpretation [...] PERCENT (BEAKER) (test code = 2801) POCT-GLUCOSE [id number] 16:55:00 Test Item Value Reference Range Interpretation Comments POC-GLUCOSE METER 200 mg/dL 70-110 H : TESTED A T [facility] 6720 (BEAKER) (test code = [facility], 1538) 80993: Horse Groomer/Techni charo ID = [id number] for JOSE DENNEY [id number] 13:51:00 Test Item Value Reference Range Interpretation Comments ACTIVATED CLOTTING TIME 274 sec Refe rence Range: 74-137 (BEAKER) (test code = second s, 441) Baseline/TESTED AT [facility] 6720 [facility] 7703 0 [id number] 13:51:00 Test Item Value Reference Range Interpretation Comments ACTIVATED CLOTTING TIME 323 sec Refe rence Range: 74-137 (BEAKER) (test code = second s, 441) Baseline/TESTED AT [place] [id number] [facility] 7703 0 CBC W/PLT COUNT & AUTO [id number] 07:44:00 Test Item Value Reference Range Interpretation [...] PERCENT (BEAKER) (test code = 2801) POCT-GLUCOSE [id number] 06:13:00 Test Item Value Reference Range Interpretation Comments POC-GLUCOSE METER 123 mg/dL 70-110 H : TESTED A T [facility] 6720 (BEAKER) (test code [facility], = 1538) 83872: Horse Groomer/Techni charo ID = [id number] for JORD AN, LACRYSTAL PLATELET [id number] 11:27:00 Test Item Value Reference Range Interpretation Comments PLATELET COUNT (BEAKER) (test 112 K/CU MM 150-450 L code = 756) [id number] 11:07:00 Test Item Value Reference Range Interpretation Comments SODIUM (BEAKER) (test code = 381) 138 meq/L 136-145 POTASSIUM (BEAKER) (test code = 4.7 meq/L 3.5-5.1 379) CHLORIDE (BEAKER) (test code = 382) 107 meq/L 98-107 CO2 (BEAKER) (test code = 355) 26 meq/L 22-29 [id number] 11:07:00 Test Item Value Reference Range Interpretation Comments GLUCOSE RANDOM (BEAKER) (test code 134 mg/dL 70-105 H = 652) BUN AND [id number] 11:07:00 Test Item Value Reference Range Interpretation Comments BLOOD UREA NITROGEN 26 mg/dL 7-21 H (DAYO) (test code = 354) CREATININE (DAYO) 1.83 mg/dL 0.57-1.25 H (test code = 358) EGFR (DAYO) (test 33 mL/min/1.73 ESTIMA RADHA GFR IS code = 1092) sq m NOT ACCURATE CREATININE CLEARANCE IN PREDICTING GLOMERULAR FILTRATION RATE . ESTIMATED GFR I S NOT APPLICABLE FOR DIALYSIS PATIEN RITA. [id number] 10:54:00 Test Item Value Reference Range Interpretation Comments HEMOGLOBIN (DAYO) (test code = 13.1 GM/DL 11.2-15.7 410) PET, CARDIAC PERFUSION MULTIPLE STUDIES, REST AND [id number] 16:17:00 Reason for Exam:->i73.9, e11.9, i25.10FINAL REPORT PROCEDURE: MYOCARDIAL PERFUSION PET IMAGING (Rest/Stress)CPT CODE:64398 INDICATION: Known CAD CARDIOVASCULAR PROFILE:CAD History: Known [...] MDReport Verified Date/Time: 11/26/2018 16:17:24 Reading Location: [address] Reading Room [facility] METABOLIC [id number] 11:28:00 Test Item Value Reference Range Interpretation [...] PATIEN TS. CBC W/PLT COUNT & AUTO [id number] 11:19:00 Test Item Value Reference Range Interpretation [...] (BEAKER) (test code = 2801) BASIC METABOLIC [id number] 14:13:00 Test Item Value Reference Range Interpretation [...] PATIEN TS. CBC W/PLT COUNT & AUTO [id number] 13:54:00 Test Item Value Reference Range Interpretation [...] % 0-1 PERCENT (BEAKER) (test code = 4292)
[2022-12-23 05:09] LABS: Absolute Lymphocytes (CBC) 1.2 K/uL (0.7-4.9); Hematocrit 38.4 % (36.0-45.0); Lymphocytes % 24.7 % (15.3-44.8); MCV 91.4 fL (80-100); MPV 9.9 fL (7.6-11.3); Platelets 123 thou/uL (152-406)
[2022-12-23 05:11] LABS: Protime INR 1.15
[2022-12-23] MEDS ORDERED: ASPIRIN 81 MG CHEWABLE TABLET ONE ×2 (05:18→05:29)
[2022-12-23] MEDS ORDERED: ONDANSETRON 4 MG/2 ML VIAL ONE (05:19)
[2022-12-23] MEDS ORDERED: MORPHINE 4 MG/ML SYR ONE (05:19)
[2022-12-23 05:31] LABS: ALT/SGPT 23 U/L (13-56); AST/SGOT 13 U/L (15-37); Albumin 3.5 g/dL (3.4-5.0); Alkaline Phosphatase 104 U/L (45-117); BUN Blood Urea Nitrogen 35 mg/dL (7-18); Bicarbonate 27 mEq/L (21-32); Bilirubin Total 0.2 mg/dL (0.2-1.0); Glomerular Filtration Rate 23 ml/min (=/>90); Glucose Level 163 mg/dL (74-106); Magnesium 2.4 mg/dL (1.6-2.4); NT PRO-BNP 507 pg/mL (<450); Potassium 4.3 mEq/L (3.5-5.1); Protein, Total 7.2 g/dL (6.4-8.2); Sodium Level 143 mEq/L (136-145); Troponin High Sensitivity 24.5 pg/mL (<58.9)
[2022-12-23 05:34] LABS: Bilirubin Direct < 0.1 mg/dL (0-0.2); Bilirubin Indirect, Calculated ND mg/dL (0.2-0.8)
[2022-12-23] MEDS ORDERED: DIAZEPAM 2 MG TABLET ONE (05:40)
--- NOTE | 2022-12-23 07:06 | ER ---
Nurse's Notes [facility] Name: Sangita Hendrix Age: 77 yrs Sex: Female : 1945 Arrival Date: 12/23/2022 Time: 04:37 Bed 5 Private MD: Diagnosis: Angina pectoris, unspecified Presentation: 12/23 04:45 Chief complaint: Patient states: my heart is hurting me. 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 Pain to lg3 center chest. pain 11/27. Coronavirus screen: Client denies travel out of the [place] in the last 14 days. At this time, the client does not indicate any symptoms associated with coronavirus-19. Ebola Screen: No symptoms or risks identified at this time. Initial Sepsis Screen: Does the patient meet any 2 criteria? No. Patient's initial sepsis screen is negative. Does the patient have a suspected source of infection? No. Patient's initial sepsis screen is negative. Risk Assessment: Do you want to hurt yourself or someone else? Patient reports no desire to harm self or others. Onset of symptoms was December 23, 2022. 04:45 Method Of Arrival: Ambulatory lg3 04:45 Acuity: MADISYN 3 lg3 Triage Assessment: 04:48 General: Appears in no apparent distress. comfortable, Behavior is calm, cooperative. lg3 Pain: Complains of pain in chest. EENT: No deficits noted. No signs and/or symptoms were reported regarding the EENT system. Neuro: No deficits noted. Ortiz Agitation-Sedation Scale (RASS): 0 - Alert and Calm Level of Consciousness is awake, alert, obeys commands, Oriented to person, place, time, situation. Cardiovascular: Reports chest pain. Respiratory: No deficits noted. Airway is patent Respiratory effort is even, unlabored, Respiratory pattern is regular, symmetrical. GI: No deficits noted. No signs and/or symptoms were reported involving the gastrointestinal system. : No deficits noted. No signs and/or symptoms were reported regarding the genitourinary system. Derm: No deficits noted. No signs and/or symptoms reported regarding the dermatologic system. Skin is intact, is healthy with good turgor, Skin is dry, Skin is normal, Skin temperature is warm. Musculoskeletal: No deficits noted. No signs and/or symptoms reported regarding the musculoskeletal system. Circulation, motion, and sensation intact. Range of motion: intact in all extremities. Historical: - Allergies: 04:48 PENICILLINS; lg3 - PMHx: 04:48 BRADYCARDIA; CHF; Dementia; Diabetes - IDDM; GERD; Gout; hiatal hernia; Pacemaker; lg3 - PSHx: 04:48 Cholecystectomy; hysterectomy; lg3 - Immunization history:: Adult Immunizations up to date. - Social history:: Smoking status: Patient denies any tobacco usage or history of. Patient/guardian denies using alcohol, street drugs. - Family history:: not pertinent. Screenin:20 [facility] ED Fall Risk Assessment (Adult) History of falling in the last 3 months, vc1 including since admission No falls in past 3 months (0 pts) Confusion or Disorientation No (0 pts) Intoxicated or Sedated No (0 pts) Impaired Gait No (0 pts) Mobility Assist Device Used No (0 pt) Altered Elimination No (0 pt) Score/Fall Risk Level 0 - 2 = Low Risk Oriented to surroundings, Maintained a safe environment, Educated pt \T\ family on fall prevention, incl call for assistance when getting out of bed. Abuse screen: Denies threats or abuse. Nutritional screening: No deficits noted. Tuberculosis screening: No symptoms or risk factors identified. Assessment: 07:26 General: Appears in no apparent distress. Behavior is calm, cooperative. Pain: Denies mb9 pain. Neuro: Ortiz Agitation-Sedation Scale (RASS): 0 - Alert and Calm Level of Consciousness is awake, alert, obeys commands, Oriented to person, place, time, situation, Appropriate for age. Cardiovascular: Heart tones S1 S2 present Patient's skin is warm and dry. Rhythm is regular. Respiratory: Airway is patent Respiratory effort is even, unlabored, Respiratory pattern is regular, symmetrical, Breath sounds are clear bilaterally. GI: Abdomen is round non-distended, Bowel sounds present X 4 quads. Abd is soft and non tender X 4 quads. : No signs and/or symptoms were reported regarding the genitourinary system. EENT: No signs and/or symptoms were reported regarding the EENT system. Derm: Skin is pink, warm \T\ dry. Musculoskeletal: Range of motion: intact in all extremities. 08:36 Reassessment: Daughter states she gave pt her morning medications. mb9 Vital Signs: 04:45 BP 155 / 52; Pulse 60; Resp 17 S; Pulse Ox 100% on R/A; Weight 100.24 kg (R); Height 5 lg3 ft. 3 in. (R); Pain 10/10; 07:27 BP 169 / 72; Pulse 58; Resp 18; Pulse Ox 100% on R/A; mb9 08:36 BP 158 / 57; Pulse 57; Resp 18; Pulse Ox 100% on R/A; mb9 04:45 Body Mass Index 39.15 (100.24 kg, 160.02 cm) lg3 04:45 Pain Scale: Adult lg3 ED Course: 04:39 Patient arrived in ED. jj6 04:43 Kunal Kellogg MD is Attending Physician. sp4 04:48 Triage completed. lg3 04:48 Arm band placed on right wrist. lg3 05:20 Patient has correct armband on for positive identification. Placed in gown. Bed in low vc1 position. Call light in reach. Side rails up X 1. Client placed on continuous cardiac and pulse oximetry monitoring. NIBP monitoring applied. 05:34 XRAY Chest (1 view) In Process Unspecified. EDMS 07:05 Terry Blank MD is Hospitalizing Provider. sp4 07:21 No provider procedures requiring assistance completed. Patient admitted, IV remains in mb9 place. 07:27 Patient maintains SpO2 saturation greater than 95% on room air. mb9 08:59 Erlinda White, ANAMARIA is Primary Nurse. mb9 Administered Medications: 05:21 Drug: morphine IVP or IV 4 mg IVP once over 4 mins Route: IVP; Infused Over: 4 mins; vc1 Site: right hand; 09:00 Follow up: Response: No adverse reaction mb9 05:21 Drug: Ondansetron IVP 4 mg IVP once; over 2 minutes Route: IVP; Site: right hand; vc1 09:00 Follow up: Response: No adverse reaction mb9 05:21 Drug: Aspirin PO Chewable Tablet 324 mg PO once; 81 mg tablets x 4 Route: PO; vc1 08:59 Follow up: Response: No adverse reaction mb9 05:29 Drug: Diazepam PO 2 mg PO once Route: PO; vc1 08:59 Follow up: Response: No adverse reaction mb9 Medication: 05:21 VIS not applicable for this client. vc1 Outcome: 07:05 Decision to Hospitalize by Provider. sp4 08:57 Admitted to Med/surg accompanied by tech, via wheelchair, room 225, with chart, Report mb9 called to ANAMARIA Sharif 08:57 Condition: stable 08:57 Instructed on the need for admit, 09:00 Patient left the ED. mbSusan Signatures: Dispatcher [employer] EDBernarda Sewell RN RN lg3 Yanira Lutz6 Ramila Quintero RN RN vc1 Erlinda White RN RN mb9 Kunal Kellogg MD MD sp4
--- NOTE | 2022-12-23 07:06 | EDPHYS ---
Physician Documentation [facility] Name: Sangita Hendrix Age: 77 yrs Sex: Female : 1945 Arrival Date: 12/23/2022 Time: 04:37 Bed 5 Private MD: ED Physician Kunal Kellogg HPI: 12/23 04:53 This 77 yrs old Black Female presents to ER via Ambulatory with complaints of Chest sp4 Pain, Irregular Pulse. 04:53 PMH - Allergies: PENICILLINS PMHx: BRADYCARDIA; CHF; Dementia; Diabetes - IDDM; GERD; sp4 Gout; hiatal hernia; Pacemaker PSHx: Cholecystectomy; hysterectomy;. 05:10 This is a very pleasant female with past medical history of atypical chest pains, type sp4 2 diabetes, CHF, history of pacemaker, dementia, chronic kidney disease stage IV, hypertension, hyperlipidemia, peripheral arterial disease, chronic cytopenia. Patient states that she has not been to sleep last night and 1 hour ago she has developed left-sided chest pain associated with chest pressure. Patient also reports associated palpitations. Patient was admitted here 03/09/2022 for chest pains. During admission patient has declined VQ scan and left AGAINST MEDICAL ADVICE on 03/10/2022. Patient's medications include amiodarone, furosemide, insulin glargine, Entresto, carvedilol, aspirin, clopidogrel, memantine, rosuvastatin, tramadol, gabapentin. Patient's relative reports that on 12/11/2022 patient has had stress test and echocardiogram by sales analytics manager Dr. Garza, and those were reported to be normal.. Historical: - Allergies: 04:48 PENICILLINS; lg3 - PMHx: 04:48 BRADYCARDIA; CHF; Dementia; Diabetes - IDDM; GERD; Gout; hiatal hernia; Pacemaker; lg3 - PSHx: 04:48 Cholecystectomy; hysterectomy; lg3 - Immunization history:: Adult Immunizations up to date. - Social history:: Smoking status: Patient denies any tobacco usage or history of. Patient/guardian denies using alcohol, street drugs. - Family history:: not pertinent. ROS: 05:10 Constitutional: Negative for fever, chills, and weight loss, positive chest pains and sp4 palpitations 05:10 All other systems are negative, Exam: 05:10 Constitutional: This is a well developed, well nourished patient who is awake, alert, sp4 and in no acute distress. Head/Face: Normocephalic, atraumatic. Eyes: Pupils equal round and reactive to light, extra-ocular motions intact. Lids and lashes normal. Conjunctiva and sclera are not injected. Cornea within normal limits. Periorbital areas with no swelling, redness, or edema. ENT: Nares patent. No nasal discharge, no septal abnormalities noted. Tympanic membranes are normal and external auditory canals are clear. Oropharynx with no redness, swelling, or masses, exudates, or evidence of obstruction, uvula midline. Mucous membranes moist. Neck: Trachea midline, no thyromegaly or masses palpated, and no cervical lymphadenopathy. Supple, full range of motion without nuchal rigidity, or vertebral point tenderness. Chest/axilla: Normal chest wall appearance and motion. Nontender with no deformity. No lesions are appreciated. Cardiovascular: Regular rate and rhythm with a normal S1 and S2. No gallops, murmurs, or rubs. Normal PMI, no JVD. No pulse deficits. Respiratory: Lungs have equal breath sounds bilaterally, clear to auscultation and percussion. No rales, rhonchi or wheezes noted. No increased work of breathing, no retractions or nasal flaring. Abdomen/GI: Soft, non-tender, with normal bowel sounds. No distension or tympany. No guarding or rebound. No evidence of tenderness throughout. Back: No spinal tenderness. No costovertebral tenderness. Skin: Warm, dry with normal turgor. Normal color with no rashes, no lesions, and no evidence of cellulitis. MS/ Extremity: Pulses equal, no cyanosis. Neurovascular intact. Full, normal range of motion. Neuro: Awake and alert, GCS 15, oriented to person, place, time, and situation. Cranial nerves II-XII grossly intact. Motor strength 5/5 in all extremities. Sensory grossly intact. Psych: Awake, alert, with orientation to person, place and time. Behavior, mood, and affect are within normal limits 05:10 ECG was reviewed by the Attending Physician. EKG reveals normal sinus rhythm at a rate of 65, no ST elevation or depression, no ectopy, left axis deviation, first-degree AV block, Vital Signs: 04:45 BP 155 / 52; Pulse 60; Resp 17 S; Pulse Ox 100% on R/A; Weight 100.24 kg (R); Height 5 lg3 ft. 3 in. (R); Pain 10/10; 07:27 BP 169 / 72; Pulse 58; Resp 18; Pulse Ox 100% on R/A; mb9 08:36 BP 158 / 57; Pulse 57; Resp 18; Pulse Ox 100% on R/A; mb9 04:45 Body Mass Index 39.15 (100.24 kg, 160.02 cm) lg3 04:45 Pain Scale: Adult lg3 MDM: 04:43 Patient medically screened. sp4 06:32 ED course: CLINICAL HISTORY: The patient is 77 years old and is Female; CHEST PAIN sp4 TECHNIQUE: Single view of the chest. COMPARISON: November 30, 2022. FINDINGS: Lungs: No pulmonary vascular congestion or consolidation. Pleural space: Unremarkable. No pneumothorax. Heart: The cardiac silhouette is enlarged versus artifact of AP technique. Mediastinum: Unremarkable. Bones/joints: No acute fracture visualized. Tubes, lines and devices: Left-sided ICD. Upper abdomen: No free air in the visualized upper abdomen. IMPRESSION: 1. No acute cardiopulmonary process identified. 2. Left-sided ICD. . 07:02 Differential diagnosis: acute myocardial infarction, acute pericarditis, anxiety, sp4 coronary artery disease chest wall pain, cholecystitis. HEART Score: History: Moderately Suspicious (1), ECG: Non specific repolarization disturbance / LBTB / PM (1), Age: > or = 65 years (2), Risk Factors: > or = 3 Risk factors for atherosclerotic disease (2), Troponin: < or = 1 x Normal Limit (0), Total Score = 6. The patient was given aspirin in the Emergency Department. Data reviewed: vital signs, nurses notes, old medical records, lab test result(s), EKG, radiologic studies, plain films. ED course: Patient warrants admission for chest pain investigation. To rule out ACS as well.. 12/23 04:43 Order name: Basic Metabolic Panel; Complete Time: 06:31 sp4 12/23 04:43 Order name: CBC with Diff; Complete Time: 06:31 sp4 12/23 04:43 Order name: LFT's; Complete Time: 06:31 sp4 12/23 04:43 Order name: Magnesium; Complete Time: 06:31 4 12/23 04:43 Order name: NT PRO-BNP; Complete Time: 06:31 [facility] 12/23 04:43 Order name: PT-INR; Complete Time: 06:31 [facility] 12/23 04:43 Order name: Troponin HS; Complete Time: 06:31 [facility] 12/23 06:22 Order name: Troponin High Sensitivity [facility] 12/23 04:43 Order name: XRAY Chest (1 view) [facility] 12/23 04:43 Order name: EKG; Complete Time: 04:44 [facility] 12/23 04:43 Order name: Cardiac monitoring; Complete Time: 05:21 [facility] 12/23 04:43 Order name: EKG - Nurse/Tech; Complete Time: 05:21 [facility] 12/23 04:43 Order name: IV Saline Lock; Complete Time: 05:21 [facility] 12/23 04:43 Order name: Labs collected and sent; Complete Time: 05:21 [facility] 12/23 04:43 Order name: O2 Per Protocol; Complete Time: 05:21 [facility] 12/23 04:43 Order name: O2 Sat Monitoring; Complete Time: 05:21 [facility] 12/23 06:43 Order name: Labs - recollect needed: recollect all the blood per Yisel; Complete Time: eb 07:10 EC:10 Rate is 65 beats/min. Rhythm is regular, Normal Sinus Rhythm. Left axis deviation sp4 noted. IN interval is prolonged. QRS interval is prolonged. QT interval is normal. No Q waves. T waves are Normal. No ST changes noted. Clinical impression: Normal ECG. Interpreted by me. Administered Medications: 05:21 Drug: morphine IVP or IV 4 mg IVP once over 4 mins Route: IVP; Infused Over: 4 mins; vc1 Site: right hand; 09:00 Follow up: Response: No adverse reaction mb9 05:21 Drug: Ondansetron IVP 4 mg IVP once; over 2 minutes Route: IVP; Site: right hand; vc1 09:00 Follow up: Response: No adverse reaction mb9 05:21 Drug: Aspirin PO Chewable Tablet 324 mg PO once; 81 mg tablets x 4 Route: PO; vc1 08:59 Follow up: Response: No adverse reaction mb9 05:29 Drug: Diazepam PO 2 mg PO once Route: PO; vc1 08:59 Follow up: Response: No adverse reaction mb9 Disposition Summary: 12/23/22 07:05 Hospitalization Ordered Notes: Hospitalization Status: Observation sp4 Provider: Terry Blank4 Location: Telemetry/[facility]Sur (observation) sp4 Condition: Stable sp4 Problem: new sp4 Symptoms: have improved sp4 Bed/Room Type: Standard sp4 Room Assignment: 225(12/23/22 08:30) eb Diagnosis - Angina pectoris, unspecified sp4 Forms: - Medication Reconciliation Form sp4 - SBAR form sp4 - Leadership Thank You Letter sp4 Signatures: Dispatcher [employer] Emma Soler Lacie RN RN lg3 Ramila Quintero RN RN vc1 Kunal Kellogg MD MD sp4 Erlinda White RN mb9 Corrections: (The following items were deleted from the chart) 08:30 07:05 sp4 eb
--- NOTE | 2022-12-23 07:13 | P.HP ---
Patient History Date of Service: 12/23/22 Allergies Penicillins Allergy (Mild, Verified 03/29/14 22:36) Hives/Rash No Known Allergie Allergy (Uncoded 11/11/15 08:18) Unknown Home Medications: Amiodarone HCl [Cordarone*] 1 tab PO DAILY 05/30/17 Furosemide 1 tab PO DAILY 05/30/17 Insulin Glargine,Hum.rec.anlog [Lantus] 25 unit SQ DAILYPRN PRN 05/30/17 Sacubitril/Valsartan [Entresto 24 mg-26 mg Tablet] 1 tab PO DAILY 05/30/17 carvediloL [Carvedilol] 1 tab PO BID 05/30/17 Aspirin [Aspirin EC 81 MG] 81 mg PO DAILY 08/25/21 Clopidogrel Bisulfate [Plavix*] 75 mg PO DAILY 08/25/21 Memantine HCl [Namenda] 10 mg PO DAILY 08/25/21 Rosuvastatin Calcium [Crestor] 20 mg PO DAILY 08/25/21 Tramadol HCl [Ultram] 50 mg PO BID PRN 08/25/21 Gabapentin 300 mg PO BID 03/09/22 - Past Medical/Surgical History Diabetic: Yes -: HLD -: Systolic CHF -: HTN -: DM -: dementia -: CKD -: thrombocytopenia -: PAD -: Pacer/Defib -: Back sX -: Hysterectomy -: Vascular Sx Psychosocial/ Personal History: Patient lives at home with family - Family History Mother -: Hypertension Sister -: Kidney disease Father -: Heart disease Brother -: Heart disease - Social History Alcohol use: No CD- Drugs: No Caffeine use: Yes Physical Examination - Studies Laboratory Data (last 24 hrs) 12/23/22 12/23/22 12/23/22 05:00 05:00 05:00 WBC 4.80 Hgb 13.0 Hct 38.4 Plt Count 123 L PT 12.7 H INR 1.15 Sodium 143 Potassium 4.3 BUN 35 H Creatinine 2.15 H Glucose 163 H Magnesium 2.4 Total Bilirubin 0.2 AST 13 L ALT 23 Alkaline Phosphatase 104 Assessment and Plan - Advance Directives Does patient have a Living Will: No Does patient have a Durable POA for Healthcare: No
--- NOTE | 2022-12-23 07:26 | P.HP ---
Certification for Inpatient Patient admitted to: Observation With expected LOS: <2 Midnights Patient will require the following post-hospital care: None Practitioner: I am a practitioner with admitting privileges, knowledge of patient current condition, hospital course, and medical plan of care. Services: Services provided to patient in accordance with Admission requirements found in Title 42 Section 412.3 of the Code of Federal Regulations Patient History Date of Service: 12/23/22 Reason for admission: Chest pain History of Present Illness: 76 yo F with history of CHF s/p pacemaker/defibrillator, HTN, HLD, CKD, DM, PAD, dementia, and chronic thrombocytopenia who presents with chest pain. She reports chest pain started to arrival. Radiates to her left arm, she reports intermittent described as chest pressure. She denies nausea vomiting, shortness of breath, abdominal pain, Recent fever, infection. Initial troponin negative. Plan to admit for chest pain, trend troponins, ER evaluationCBC unremarkable platelets thrombocytopenia 123 sodium potassium normal, acute kidney injury unknown baseline creatinine 2.15 35 BUN, initial troponin -22.3 BNP 507 Allergies Penicillins Allergy (Mild, Verified 03/29/14 22:36) Hives/Rash No Known Allergie Allergy (Uncoded 11/11/15 08:18) Unknown Home Medications: Amiodarone HCl [Cordarone*] 1 tab PO DAILY 05/30/17 Furosemide 1 tab PO DAILY 05/30/17 Insulin Glargine,Hum.rec.anlog [Lantus] 25 unit SQ DAILYPRN PRN 05/30/17 Sacubitril/Valsartan [Entresto 24 mg-26 mg Tablet] 1 tab PO DAILY 05/30/17 carvediloL [Carvedilol] 1 tab PO BID 05/30/17 Aspirin [Aspirin EC 81 MG] 81 mg PO DAILY 08/25/21 Clopidogrel Bisulfate [Plavix*] 75 mg PO DAILY 08/25/21 Memantine HCl [Namenda] 10 mg PO DAILY 08/25/21 Rosuvastatin Calcium [Crestor] 20 mg PO DAILY 08/25/21 Tramadol HCl [Ultram] 50 mg PO BID PRN 08/25/21 Gabapentin 300 mg PO BID 03/09/22 - Past Medical/Surgical History Diabetic: Yes -: HLD -: Systolic CHF -: HTN -: DM -: dementia -: CKD -: thrombocytopenia -: PAD -: Pacer/Defib -: Back sX -: Hysterectomy -: Vascular Sx Psychosocial/ Personal History: Patient lives at home with family - Family History Mother -: Hypertension Sister -: Kidney disease Father -: Heart disease Brother -: Heart disease - Social History Alcohol use: No CD- Drugs: No Caffeine use: Yes Review of Systems 10-point ROS is otherwise unremarkable Physical Examination - Physical Exam General: Alert, In no apparent distress, Oriented x3 HEENT: Atraumatic, Normocephalic, PERRLA Neck: Supple, 2+ carotid pulse no bruit, JVD not distended Respiratory: Clear to auscultation bilaterally, Normal air movement Cardiovascular: No edema, Normal pulses, Regular rate/rhythm Capillary refill: <2 Seconds Gastrointestinal: Normal bowel sounds, Soft and benign Musculoskeletal: No clubbing, No swelling Integumentary: No rashes, No breakdown Neurological: Normal speech, Normal strength at 5/5 x4 extr - Studies Laboratory Data (last 24 hrs) 12/23/22 12/23/22 12/23/22 05:00 05:00 05:00 WBC 4.80 Hgb 13.0 Hct 38.4 Plt Count 123 L PT 12.7 H INR 1.15 Sodium 143 Potassium 4.3 BUN 35 H Creatinine 2.15 H Glucose 163 H Magnesium 2.4 Total Bilirubin 0.2 AST 13 L ALT 23 Alkaline Phosphatase 104 Assessment and Plan - Plan Assessment plan chest pain rule out VT History CHF s/p pacemaker/defibrillator History of essential HTN Telemetry, trend troponins, as needed analgesics, antiemetics Initial troponin negative. Plan to admit for chest pain, trend troponins EKG Rate is 65 beats/min. Rhythm is regular, Normal Sinus Rhythm. Left axis deviation noted. VA interval is prolonged. QRS interval is prolonged. QT interval is normal. No Q waves. T waves are Normal. No ST changes noted. Clinical impression: Normal ECG. CKD stage III acute kidney injury unknown baseline creatinine 2.15 35 BUN Avoid nephrotoxic medications Insulin-dependent DM Accu-Cheks, sliding scale insulin, Hyperlipidemia PAD dementia chronic thrombocytopenia Resume appropriate home meds platelets thrombocytopenia 123 Full code DVT Lovenox Diet cardiac Discharge Plan: Home Plan to discharge in: 24 Hours - Advance Directives Does patient have a Living Will: No Does patient have a Durable POA for Healthcare: No - Code Status/Comfort Care Code Status: Full Code Physician Review: Patient Assessed, Agree with Above Assessment and Plan Critical Care: No Time Spent Managing Pts Care (In Minutes): 55
[2022-12-23 09:05] VITALS: O2SAT 100
[2022-12-23] MEDS ORDERED: ENOXAPARIN 30 MG/0.3 ML SQ SCH (09:15)
[2022-12-23] MEDS ORDERED: GABAPENTIN 300 MG CAP PO SCH (09:15)
[2022-12-23] MEDS ORDERED: SACUBITRIL/VALSARTAN 24/26 MG TAB PO SCH ×2 (09:15→21:00)
[2022-12-23] MEDS ORDERED: AMIODARONE HCL 200 MG TAB PO SCH (09:15)
[2022-12-23] MEDS ORDERED: ASPIRIN EC 81 MG TAB PO SCH (09:15)
[2022-12-23] MEDS ORDERED: ONDANSETRON 4 MG/2 ML VIAL IV PRN (09:15)
[2022-12-23] MEDS ORDERED: carvediloL 6.25 MG TAB PO SCH (09:15)
[2022-12-23] MEDS ORDERED: MORPHINE 2 MG/ML SYR IV PRN (09:15)
[2022-12-23] MEDS ORDERED: CLOPIDOGREL 75 MG TABLET PO SCH (09:15)
[2022-12-23] MEDS: INSULIN REGULAR (HUMAN) 100 UNIT/ML SQ SCH ×3 (09:15→16:30)
[2022-12-23] MEDS ORDERED: ACETAMINOPHEN 500 MG TAB PO PRN (09:15)
[2022-12-23] MEDS ORDERED: FUROSEMIDE 40 MG TABLET PO SCH (09:15)
[2022-12-23] MEDS ORDERED: ROSUVASTATIN 10 MG TAB PO SCH (09:15)
[2022-12-23 09:19] VITALS: BMI 39.1
--- NOTE | 2022-12-23 11:08 | RAD REPORT ---
EXAM DESCRIPTION: RAD - Chest Single View - 12/23/2022 5:32 am CLINICAL HISTORY: The patient is 77 years old and is Female; CHEST PAIN TECHNIQUE: Single view of the chest. COMPARISON: November 30, 2022. FINDINGS: Lungs: No pulmonary vascular congestion or consolidation. Pleural space: Unremarkable. No pneumothorax. Heart: The cardiac silhouette is enlarged versus artifact of AP technique. Mediastinum: Unremarkable. Bones/joints: No acute fracture visualized. Tubes, lines and devices: Left-sided ICD. Upper abdomen: No free air in the visualized upper abdomen. IMPRESSION: 1. No acute cardiopulmonary process identified. 2. Left-sided ICD. Electronically signed by: Danica Valdez MD 12/23/2022 5:44 AM [employer] Due to temporary technical issues with the PACS/Fluency reporting system, reports are being signed by the in house radiologists without review as a courtesy to insure prompt reporting. The interpreting radiologist is fully responsible for the content of the report.
[2022-12-23] MEDS ORDERED: predniSONE 20 MG TAB PO ONE (15:34)
[2022-12-23 17:47] VITALS: BP 129/59; TEMP 97.6
== END 2022-12-23 18:30 | disposition home or self-care (01) ==
LOC: ER 04:37 → UNDOADMOB 07:13 → ERHOLD 07:13 → 2ND 08:56
PROVIDERS: ADMIT Hospitalist; ATTEND Hospitalist
DX: R07.9 Chest pain, unspecified (principal); E78.5 Hyperlipidemia, unspecified; E11.22 Type 2 diabetes mellitus with diabetic chronic kidney disease; I13.0 Hypertensive heart and chronic kidney disease with heart failure and stage 1 through stage 4 chronic kidney disease, or unspecified chronic kidney disease; N18.9 Chronic kidney disease, unspecified; Z79.4 Long term (current) use of insulin; Z88.0 Allergy status to penicillin; Z95.0 Presence of cardiac pacemaker; Z95.810 Presence of automatic (implantable) cardiac defibrillator; F03.90 Unspecified dementia, unspecified severity, without behavioral disturbance, psychotic disturbance, mood disturbance, and anxiety; I73.9 Peripheral vascular disease, unspecified; D69.6 Thrombocytopenia, unspecified
CPT/HCPCS: 93005; 85025; 80048; 36415; 83735; 85610; 82947 ×3; 80076; 84484 ×3; 83880; 71045; 96375; 96374; 99285; J7512; J1650; J2270; J2405; G0378 ×3

== ENCOUNTER 2023-03-28 13:33 | Inpatient (IN) | payer OTHER ==
--- NOTE | 2023-03-28 14:17 | RAD REPORT ---
EXAM DESCRIPTION: CT - Head C Spine Cap Wo Con - 03/28/2023 2:06 pm CLINICAL HISTORY: Trauma, head and neck injury. Chest, abdomen and pelvis pain. PAIN COMPARISON: No comparisons TECHNIQUE: CT head without contrast. CT cervical spine without contrast with coronal and sagittal reformatted images. CT chest, abdomen and pelvis with coronal and sagittal reformatted images of the spine. All CT scans are performed using dose optimization technique as appropriate and may include automated exposure control or mA/KV adjustment according to patient size. FINDINGS: CT HEAD WITHOUT CONTRAST: No intracranial hemorrhage, hydrocephalus or extra-axial fluid collection. No acute large vascular te rritory infarct. The paranasal sinuses and mastoids are clear. The calvarium is intact. CT CERVICAL SPINE WITHOUT CONTRAST: No fracture or subluxation. The prevertebral soft tissues are normal in thickness.Multilevel degenerative changes are present in the spine. Multilevel cervical spondylosis with varying degrees of neural foraminal narrowing. 2 mill imeters anterolisthesis of C5 on C6 and C6 on C7 noted. This is likely related to underlying degenera tive changes. There is a least moderate central spinal stenosis at C4-5. MRI could further assess the se findings. CT CHEST, ABDOMEN, PELVIS: Thorax: Chest Wall: No abnormal mass left upper chest wall pacemaker. Lungs: No acute abnormality. Pleura: No effusions or pneumothorax. Karissa/Mediastinum: No lymphadenopathy. Aorta/Pulmonary Arteries: Unremarkable Heart: Normal size. Abdomen/Pelvis: Liver: No acute abnormality or suspicious lesions. Biliary: No biliary ductal dilatation. Stomach: No significant focal abnormality. Duodenum: No significant focal abnormality. Pancreas: No significant abnormality. Spleen: No significant abnormality. Adrenal: No suspicious lesions. Kidney/ureter: No hydronephrosis. No renal calculi. Retroperitoneum: No retroperitoneal adenopathy. Vascular: No aneurysm. Bowel: No significant focal abnormality. Peritoneum: No ascites or free air. Bladder: Grossly unremarkable. Reproductive: Hysterectomy. Bones: Mildly displaced angulated left subcapital femoral neck fracture. No other fractures identifie d. Multilevel degenerative changes are present in the spine. Grade 1 anterolisthesis of L4 on L5. Other: n/a IMPRESSION: 1. No acute intracranial abnormality. 2. No acute fracture or traumatic malalignment of the cervical spine. 3. Mildly displaced and angulated left subcapital femoral neck fracture. No other evidence of signifi cant trauma to the chest, abdomen, or pelvis.
[2023-03-28] MEDS ORDERED: ONDANSETRON 4 MG/2 ML VIAL ONE ×2 (14:35→16:34)
[2023-03-28] MEDS ORDERED: MORPHINE 4 MG/ML SYR ONE (14:35)
--- NOTE | 2023-03-28 14:48 | RAD REPORT ---
EXAM DESCRIPTION: RAD - Pelvis - 03/28/2023 2:24 pm CLINICAL HISTORY: Pelvic pain status post injury FINDINGS: Mildly to moderately displaced subcapital fracture left femur No dislocation
--- NOTE | 2023-03-28 14:48 | RAD REPORT ---
EXAM DESCRIPTION: RAD - Femur Left - 03/28/2023 2:27 pm CLINICAL HISTORY: Left leg pain FINDINGS: Mildly to moderately displaced subcapital fracture left femur No dislocation .
--- NOTE | 2023-03-28 14:49 | RAD REPORT ---
EXAM DESCRIPTION: Mis Single View03/28/2023 2:24 pm CLINICAL HISTORY: Chest pain COMPARISON: 2022 FINDINGS: Pulmonary vascular congestion The lungs appear clear of acute infiltrate. The heart is mildly enlarged Pacemaker leads in place
[2023-03-28] MEDS ORDERED: HYDROMORPHONE HCL 1 MG/ML INJ ONE ×2 (14:51→16:34)
[2023-03-28 14:58] LABS: Absolute Lymphocytes (CBC) 0.7 K/uL (0.7-4.9); Lymphocytes % 15.6 % (15.3-44.8); MCV 92.1 fL (80-100); MPV 9.9 fL (7.6-11.3); Platelets 125 thou/uL (152-406); RBC Red Blood Cell Count 4.34 M/uL (3.86-4.86)
[2023-03-28 15:04] LABS: Protime INR 1.19
[2023-03-28 15:36] LABS: Albumin 3.6 g/dL (3.4-5.0); Bilirubin Direct 0.1 mg/dL (0-0.2); Bilirubin Indirect, Calculated 0.2 mg/dL (0.2-0.8); Bilirubin Total 0.3 mg/dL (0.2-1.0); Magnesium 2.3 mg/dL (1.6-2.4); Potassium 4.9 mEq/L (3.5-5.1); Protein, Total 7.6 g/dL (6.4-8.2)
[2023-03-28 15:39] LABS: Troponin High Sensitivity 22.4 pg/mL (<58.9)
[2023-03-28 15:40] LABS: Specific Gravity 1.015 (1.005-1.030); Urine Bacteria <20 /HPF (<20); Urine Bilirubin NEGATIVE (Negative); Urine Blood Negative (Negative); Urine Clarity Clear (Clear); Urine Color Colorless (Yellow); Urine Glucose TRACE (Negative); Urine Mucus Slight /HPF (None Seen); Urine Protein 1+ (Negative); Urine RBC <5 /HPF (None Seen); Urine Urobilinogen Normal (Normal); Urine pH 6.5 (5.0-7.0)
--- NOTE | 2023-03-28 16:15 | ER ---
Nurse's Notes [facility] Name: Sangita Hendrix Age: 77 yrs Sex: Female : 1945 Arrival Date: 03/28/2023 Time: 13:33 Bed 4 Private MD: Diagnosis: Fall on same level, unspecified;Displaced fracture of base of neck of left femur-subcapital;Obesity, unspecified;Unspecified kidney failure-chronic;Presence of cardiac pacemaker Presentation: 03/28 13:35 Chief complaint: EMS states: patient fell in the garage, landed on left hip and is ko1 complaining of pain to the left hip, wrist, and back. She is on blood thinners, did not hit her head, no LOC, she does have a hx of dementia. Coronavirus screen: At this time, the client does not indicate any symptoms associated with coronavirus-19. Ebola Screen: No symptoms or risks identified at this time. Initial Sepsis Screen: Does the patient meet any 2 criteria? No. Patient's initial sepsis screen is negative. Does the patient have a suspected source of infection? No. Patient's initial sepsis screen is negative. Risk Assessment: Do you want to hurt yourself or someone else? Patient reports no desire to harm self or others. Onset of symptoms was March 28, 2023. 13:35 Method Of Arrival: EMS: [facility] ko1 13:35 Acuity: MADISYN 3 ko1 14:01 Care prior to arrival: Medication(s) given: fentanyl 50 mcg IM ko1 Triage Assessment: 13:37 General: Appears in no apparent distress. uncomfortable, Behavior is calm, cooperative, ko1 appropriate for age. Pain: Complains of pain in left hip. Historical: - Allergies: 13:37 PENICILLINS; ko1 - PMHx: 13:37 BRADYCARDIA; hiatal hernia; Pacemaker; Gout; Diabetes - IDDM; Dementia; GERD; CHF; ko1 - PSHx: 13:37 Cholecystectomy; hysterectomy; ko1 - Immunization history:: Adult Immunizations unknown. - Social history:: Smoking status: Patient denies any tobacco usage or history of. Screenin:00 [facility] ED Fall Risk Assessment (Adult) History of falling in the last 3 months, ko1 including since admission Yes- single mechanical fall (1 pt) Confusion or Disorientation Yes (5 pts) Intoxicated or Sedated No (0 pts) Impaired Gait No (0 pts) Mobility Assist Device Used Yes (1 pt) Altered Elimination No (0 pt) Score/Fall Risk Level 3 or more points = High Risk Oriented to surroundings, Maintained a safe environment, Educated pt \T\ family on fall prevention, incl call for assistance when getting out of bed, Assessed \T\ reinforced patient's understanding of fall precautions, Provided non-skid footwear, Hourly rounding (assess needs \T\ fall precautionary measures) done, Used ambulatory aids as needed (educated on \T\ assisted with), Used gait belt as appropriate Implemented a Fall Risk Plan of Care, Apply high fall risk patient identification: yellow non skid footwear/ fall signage, Remained w/in arm's length of patient and in sight while toileting, Offered frequent toileting (1:1 observation), Remained with patient while ambulating, Utilized family, sitter, or virtual knitting machine fixer head as indicated. Abuse screen: Denies threats or abuse. Denies injuries from another. Nutritional screening: No deficits noted. Tuberculosis screening: No symptoms or risk factors identified. Assessment: 13:50 Reassessment: Patient is in CT, labs delayed due to patient being a difficult stick and ko1 off the unit. 14:00 General: Appears in no apparent distress. uncomfortable, Behavior is cooperative, ld1 anxious, crying. 14:00 Pain: Complains of pain in left hip Pain does not radiate. Pain currently is 10 out of ld1 10 on a pain scale. Quality of pain is described as throbbing, Pain began 1 hour ago. Is continuous. Neuro: Level of Consciousness is awake, alert, obeys commands, Oriented to person, place, time, situation. Cardiovascular: Capillary refill < 3 seconds Patient's skin is warm and dry. Respiratory: Airway is patent Respiratory effort is even, unlabored. GI: Abdomen is round non-distended. : No signs and/or symptoms were reported regarding the genitourinary system. EENT: No signs and/or symptoms were reported regarding the EENT system. Derm: No signs and/or symptoms reported regarding the dermatologic system. Musculoskeletal: No signs and/or symptoms reported regarding the musculoskeletal system. 15:06 Reassessment: C/O severe pain to left hip. Notified ERP. See MAR for orders. ld1 16:41 Reassessment: No changes from previously documented assessment. Patient and/or family ld1 updated on plan of care and expected duration. Pain level reassessed. Pain to left hip Patient states symptoms have not improved. 19:30 Reassessment: ASSUMED CARE OF PT. PT LYING IN BED. STATES SHE IS COMFORTABLE WHEN SHE jj7 DOESN'T MOVE BUT PAIN WITH MOVEMENT. VS STABLE. Vital Signs: 13:35 BP 181 / 86; Pulse 66; Resp 15; Temp 98; Pulse Ox 98% ; ko1 14:00 BP 162 / 87; Pulse 59; Resp 18; Pulse Ox 92% on R/A; Pain 10/10; ld1 15:07 Pain 10/10; ld1 16:41 BP 175 / 77; Pulse 59; Resp 15; Pulse Ox 100% on R/A; Pain 10/10; ld1 18:04 BP 159 / 74; Pulse 60; Resp 15; Pulse Ox 100% ; ko1 19:30 BP 173 / 91; Pulse 63; Resp 16; Temp 97.6; Pulse Ox 100% ; jj7 14:00 Pain Scale: Adult ld1 15:07 Pain Scale: Adult ld1 16:41 Pain Scale: Adult ld1 ED Course: 13:35 Patient arrived in ED. ko1 13:37 Triage completed. ko1 13:37 Arm band placed on right wrist. Patient placed in an exam room, on a stretcher, on ko1 pulse oximetry, Patient notified of wait time. 13:41 Sukumar Correa MD is Attending Physician. [facility] 13:59 Gabriela Wright, RN is Primary Nurse. ko1 14:00 Patient has correct armband on for positive identification. Bed in low position. Call ko1 light in reach. Side rails up X2. Provided Education on: na. Client placed on continuous cardiac and pulse oximetry monitoring. NIBP monitoring applied. engine monitor on. Door closed. Noise minimized. Lights dimmed. Warm blanket given. 14:08 CT Traumagram (Head C Spine CAP wo con) In Process Unspecified. EDMS 14:26 XRAY Chest (1 view) In Process Unspecified. EDMS 14:26 Pelvis XRAY In Process Unspecified. EDMS 14:26 Hip Left 2 View XRAY In Process Unspecified. EDMS 14:26 Femur Left XRAY In Process Unspecified. EDMS 14:50 Inserted saline lock: 20 gauge in left antecubital area, using aseptic technique. Blood ld1 collected. 15:05 Urinalysis w/ reflexes: pure wick Sent. ld1 15:17 Type And Screen Sent. ld1 16:13 Eliel Underwood is Hospitalizing Provider. [facility] 19:30 No provider procedures requiring assistance completed. jj7 20:07 Patient admitted, IV remains in place. jj7 Administered Medications: 14:40 Drug: morphine IVP or IV 4 mg IVP once over 4 mins Route: IVP; Infused Over: 4 mins; ld1 Site: left antecubital; 14:40 Drug: Ondansetron IVP 4 mg IVP once; over 2 minutes Route: IVP; Site: left antecubital; ld1 15:06 Drug: HYDROmorphone IVP 1 mg IVP once; Verbal order Per Dr. Correa Route: IVP; Site: ld1 left antecubital; 15:23 Drug: NS 0.9% IV 1000 ml IV at 125 ml/hr continuous Route: IV; Rate: 125 ml/hr; Site: ld1 left antecubital; 16:40 Drug: HYDROmorphone IVP 1 mg IVP once; verbal order per Dr. Correa Route: IVP; Site: ld1 left antecubital; 16:40 Drug: Ondansetron IVP 4 mg IVP once; over 2 minutes Route: IVP; Site: left antecubital; ld1 Medication: 19:30 VIS not applicable for this client. jj7 Outcome: 16:14 Decision to Hospitalize by Provider. [facility] 20:07 Admitted to Med/surg accompanied by tech, via stretcher, room 401, with oxygen, jj7 20:07 Admitted to Med/surg Report called to TYLOR CONRAD 20:07 Condition: good 20:07 Discharge instructions given to 20:08 Patient left the ED. jj7 Signatures: Dispatcher [employer] EDIN Sukumar Correa MD MD cha Sims, Lauren, RN RN ld1 Gabriela Wright RN RN ko1 Sujata Ray RN RN jj7 Corrections: (The following items were deleted from the chart) 13:40 13:35 Chief complaint: EMS states: patient fell in the garage, landed on left hip and ko1 is complaining of pain to the left hip and back. She is on blood thinners, did not hit her head, no LOC, she does have a hx of dementia. ko1 14:02 13:35 Initial Sepsis Screen: Does the patient meet any 2 criteria? No. Patient's ko1 initial sepsis screen is negative. Does the patient have a suspected source of infection? No. Patient's initial sepsis screen is negative. ko1
--- NOTE | 2023-03-28 16:15 | EDPHYS ---
Physician Documentation [facility] Name: Sangita Hendrix Age: 77 yrs Sex: Female : 1945 Arrival Date: 03/28/2023 Time: 13:33 Bed 4 Private MD: ED Physician Sukumar Correa HPI: 03/28 15:59 This 77 yrs old Black Female presents to ER via EMS with complaints of Hip Injury. ranjan 15:59 The patient or guardian reports decreased range of motion. ranjan Historical: - Allergies: 13:37 PENICILLINS; ko1 - PMHx: 13:37 BRADYCARDIA; hiatal hernia; Pacemaker; Gout; Diabetes - IDDM; Dementia; GERD; CHF; ko1 - PSHx: 13:37 Cholecystectomy; hysterectomy; ko1 - Immunization history:: Adult Immunizations unknown. - Social history:: Smoking status: Patient denies any tobacco usage or history of. ROS: 16:02 Constitutional: Negative for fever, chills, and weight loss, Eyes: Negative for injury, ranjan pain, redness, and discharge, ENT: Negative for injury, pain, and discharge, Neck: Negative for injury, pain, and swelling, Cardiovascular: Negative for chest pain, palpitations, and edema, Respiratory: Negative for shortness of breath, cough, wheezing, and pleuritic chest pain, Abdomen/GI: Negative for abdominal pain, nausea, vomiting, diarrhea, and constipation, Back: Negative for injury and pain, : Negative for injury, bleeding, discharge, and swelling, Skin: Negative for injury, rash, and discoloration, Neuro: Negative for headache, weakness, numbness, tingling, and seizure, Psych: Negative for depression, anxiety, suicide ideation, homicidal ideation, and hallucinations, Allergy/Immunology: Negative for hives, rash, and allergies, Endocrine: Negative for neck swelling, polydipsia, polyuria, polyphagia, and marked weight changes, 16:02 MS/extremity: Positive for injury or acute deformity, decreased range of motion, pain, of the left hip and left upper thigh, Exam: 16:02 Constitutional: This is a well developed, well nourished patient who is awake, alert, ranjan and in no acute distress. Head/Face: Normocephalic, atraumatic. Eyes: Pupils equal round and reactive to light, extra-ocular motions intact. Lids and lashes normal. Conjunctiva and sclera are non-icteric and not injected. Cornea within normal limits. Periorbital areas with no swelling, redness, or edema. ENT: Nares patent. No nasal discharge, no septal abnormalities noted. Tympanic membranes are normal and external auditory canals are clear. Oropharynx with no redness, swelling, or masses, exudates, or evidence of obstruction, uvula midline. Mucous membranes moist. Neck: Trachea midline, no thyromegaly or masses palpated, and no cervical lymphadenopathy. Supple, full range of motion without nuchal rigidity, or vertebral point tenderness. No Meningismus. Chest/axilla: Normal chest wall appearance and motion. Nontender with no deformity. No lesions are appreciated. Cardiovascular: Regular rate and rhythm with a normal S1 and S2. No gallops, murmurs, or rubs. Normal PMI, no JVD. No pulse deficits. Respiratory: Lungs have equal breath sounds bilaterally, clear to auscultation and percussion. No rales, rhonchi or wheezes noted. No increased work of breathing, no retractions or nasal flaring. Abdomen/GI: Soft, non-tender, with normal bowel sounds. No distension or tympany. No guarding or rebound. No evidence of tenderness throughout. Back: No spinal tenderness. No costovertebral tenderness. Full range of motion. Female : Normal external genitalia. Skin: Warm, dry with normal turgor. Normal color with no rashes, no lesions, and no evidence of cellulitis. Neuro: Awake and alert, GCS 15, oriented to person, place, time, and situation. Cranial nerves II-XII grossly intact. Motor strength 5/5 in all extremities. Sensory grossly intact. Cerebellar exam normal. Normal gait. Psych: Awake, alert, with orientation to person, place and time. Behavior, mood, and affect are within normal limits. 16:02 ECG was reviewed by the Attending Physician. Vital Signs: 13:35 BP 181 / 86; Pulse 66; Resp 15; Temp 98; Pulse Ox 98% ; ko1 14:00 BP 162 / 87; Pulse 59; Resp 18; Pulse Ox 92% on R/A; Pain 10/10; ld1 15:07 Pain 10/10; ld1 16:41 BP 175 / 77; Pulse 59; Resp 15; Pulse Ox 100% on R/A; Pain 10/10; ld1 18:04 BP 159 / 74; Pulse 60; Resp 15; Pulse Ox 100% ; ko1 19:30 BP 173 / 91; Pulse 63; Resp 16; Temp 97.6; Pulse Ox 100% ; jj7 14:00 Pain Scale: Adult ld1 15:07 Pain Scale: Adult ld1 16:41 Pain Scale: Adult ld1 MDM: 13:41 Patient medically screened. [facility] 16:07 Differential diagnosis: hip fracture, intertrochanteric fracture, femoral neck ranjan fracture, femoral shaft fracture. Data reviewed: vital signs, nurses notes, lab test result(s), EKG, radiologic studies, plain films. Consideration of Admission/Observation Patient was admitted/placed on observation. Escalation of care including admission/observation considered. I considered the following discharge prescriptions or medication management in the emergency department Medications were administered in the Emergency Department. See MAR. Independent interpretation of the following test(s) in the Emergency Department EKG: See my EKG interpretation above. Test considered but Not performed: Ultrasound no abd usg. Historians other than the Patient: Family Member: multiple family members. Care significantly affected by the following chronic conditions: Diabetes, Hypertension, Obesity, Chronic Kidney Disease, gerd, bradycardia, dementia. pm, hiatal hernia. 03/28 13:44 Order name: Basic Metabolic Panel; Complete Time: 15:55 [facility] 03/28 13:44 Order name: CBC with Diff; Complete Time: 15:55 [facility] 03/28 13:44 Order name: LFT's; Complete Time: 15:55 [facility] 03/28 13:44 Order name: Magnesium; Complete Time: 15:55 [facility] 03/28 13:44 Order name: NT PRO-BNP; Complete Time: 15:55 ranjan 03/28 13:44 Order name: PT-INR; Complete Time: 15:55 [facility] 03/28 13:44 Order name: Troponin HS; Complete Time: 15:55 ranjan 03/28 13:46 Order name: Urinalysis w/ reflexes: pure wick; Complete Time: 15:55 [facility] 03/28 13:46 Order name: Type And Screen; Complete Time: 16:14 ranjan 03/28 16:11 Order name: ABO/RH no charge; Complete Time: 16:14 [facility]FL 03/28 17:38 Order name: Urinalysis w/ reflexes EDMS 03/28 17:38 Order name: Basic Metabolic Panel EDFL 03/28 17:38 Order name: Basic Metabolic Panel EDFL 03/28 17:38 Order name: CBC with Automated Diff EDFL 03/28 17:38 Order name: CBC with Automated Diff EDFL 03/28 17:38 Order name: Magnesium EDFL 03/28 17:38 Order name: Magnesium EDFL 03/28 17:38 Order name: Phosphorus EDFL 03/28 17:38 Order name: Phosphorus EDFL 03/28 13:44 Order name: XRAY Chest (1 view); Complete Time: 15:55 [facility] 03/28 13:44 Order name: Pelvis XRAY; Complete Time: 15:55 [facility] 03/28 13:46 Order name: Hip Left 2 View XRAY [facility] 03/28 13:46 Order name: Femur Left XRAY; Complete Time: 15:55 [facility] 03/28 13:46 Order name: CT Traumagram (Head C Spine CAP wo con); Complete Time: 14:32 [facility] 03/28 13:44 Order name: EKG; Complete Time: 13:45 [facility] 03/28 17:30 Order name: CONS Physician Consult [facility]FL 03/28 17:38 Order name: Patient Safety Orders EDFL 03/28 17:38 Order name: Physical Therapy Consult [facility] 03/28 13:44 Order name: Cardiac monitoring; Complete Time: 13:45 [facility] 03/28 13:44 Order name: EKG - Nurse/Tech; Complete Time: 15:17 [facility] 03/28 13:44 Order name: IV Saline Lock; Complete Time: 15:17 [facility] 03/28 13:44 Order name: Labs collected and sent; Complete Time: 15:17 [facility] 03/28 13:44 Order name: O2 Per Protocol; Complete Time: 13:45 [facility] 03/28 13:44 Order name: O2 Sat Monitoring; Complete Time: 13:45 [facility] EC:02 Rate is 59 beats/min. Rhythm is regular. QRS [place] is Normal. ND interval is prolonged ranjan at 254 msec. QRS interval is normal. QT interval is normal. No Q waves. T waves are Normal. No ST changes noted. Clinical impression: 1st degree heart block and No evidence of ischemia. Interpreted by me. Reviewed by me. Administered Medications: 14:40 Drug: morphine IVP or IV 4 mg IVP once over 4 mins Route: IVP; Infused Over: 4 mins; ld1 Site: left antecubital; 14:40 Drug: Ondansetron IVP 4 mg IVP once; over 2 minutes Route: IVP; Site: left antecubital; ld1 15:06 Drug: HYDROmorphone IVP 1 mg IVP once; Verbal order Per Dr. Correa Route: IVP; Site: ld1 left antecubital; 15:23 Drug: NS 0.9% IV 1000 ml IV at 125 ml/hr continuous Route: IV; Rate: 125 ml/hr; Site: ld1 left antecubital; 16:40 Drug: HYDROmorphone IVP 1 mg IVP once; verbal order per Dr. Correa Route: IVP; Site: ld1 left antecubital; 16:40 Drug: Ondansetron IVP 4 mg IVP once; over 2 minutes Route: IVP; Site: left antecubital; ld1 Disposition Summary: 03/28/23 16:14 Hospitalization Ordered Notes: Hospitalization Status: Inpatient Admission ranjan Provider: Eliel Underwood cha Location: Telemetry/MedSurg (Inpatient) ranjan Condition: Stable ranjan Problem: new ranjan Symptoms: have improved ranjan Bed/Room Type: Standard ranjan Room Assignment: 401(03/28/23 19:23) aa5 Diagnosis - Fall on same level, unspecified ranjan - Displaced fracture of base of neck of left femur - subcapital ranjan - Obesity, unspecified ranjan - Unspecified kidney failure - chronic ranjan - Presence of cardiac pacemaker ranjan Forms: - Medication Reconciliation Form ranjan - SBAR form ranjan - Leadership Thank You Letter ranjan Signatures: Dispatcher [employer] Sukumar Velez MD MD cha Calderon, Audri RN RN aa5 Ira Ayala RN RN ld1 Gabriela Wright RN RN ko1 Corrections: (The following items were deleted from the chart) 19:23 16:14 ranjan aa5
--- NOTE | 2023-03-28 16:46 | P.HP ---
Certification for Inpatient Patient admitted to: Inpatient With expected LOS: >2 Midnights Practitioner: I am a practitioner with admitting privileges, knowledge of patient current condition, hospital course, and medical plan of care. Services: Services provided to patient in accordance with Admission requirements found in Title 42 Section 412.3 of the Code of Federal Regulations Patient History Date of Service: 03/28/23 Reason for admission: left femur fracture Allergies Penicillins Allergy (Mild, Verified 03/29/14 22:36) Hives/Rash No Known Allergie Allergy (Uncoded 11/11/15 08:18) Unknown Home Medications: Amiodarone HCl [Cordarone*] 1 tab PO DAILY 05/30/17 Furosemide 1 tab PO DAILY 05/30/17 Insulin Glargine,Hum.rec.anlog [Lantus] 25 unit SQ DAILYPRN PRN 05/30/17 Sacubitril/Valsartan [Entresto 24 mg-26 mg Tablet] 1 tab PO DAILY 05/30/17 carvediloL [Carvedilol] 1 tab PO BID 05/30/17 Clopidogrel Bisulfate [Plavix*] 75 mg PO DAILY 08/25/21 Memantine HCl [Namenda] 10 mg PO DAILY 08/25/21 Rosuvastatin Calcium [Crestor] 20 mg PO DAILY 08/25/21 Tramadol HCl [Ultram] 50 mg PO BID PRN 08/25/21 Gabapentin 300 mg PO BID 03/09/22 Omeprazole 20 mg PO DAILY 12/23/22 - Past Medical/Surgical History Diabetic: Yes -: HLD -: Systolic CHF -: HTN -: DM -: dementia -: CKD -: thrombocytopenia -: PAD -: Pacer/Defib -: Back sX -: Hysterectomy -: Vascular Sx Psychosocial/ Personal History: Patient lives at home with family - Family History Mother -: Hypertension Sister -: Kidney disease Father -: Heart disease Brother -: Heart disease - Social History Alcohol use: No CD- Drugs: No Caffeine use: Yes Physical Examination - Studies Laboratory Data (last 24 hrs) 03/28/23 03/28/23 03/28/23 14:47 14:47 14:47 WBC 4.50 Hgb 13.1 Hct 40.0 Plt Count 125 L PT 13.0 H INR 1.19 Sodium 136 Potassium 4.9 BUN 36 H Creatinine 2.07 H Glucose 205 H Magnesium 2.3 Total Bilirubin 0.3 AST 15 ALT 25 Alkaline Phosphatase 105 Assessment and Plan - Advance Directives Does patient have a Living Will: No Does patient have a Durable POA for Healthcare: No
[2023-03-28] MEDS ORDERED: ALBUTEROL 2.5 MG/3 ML NEB SOL NEB PRN (17:28)
--- NOTE | 2023-03-28 17:37 | P.HP ---
Certification for Inpatient Patient admitted to: Inpatient With expected LOS: >2 Midnights Practitioner: I am a practitioner with admitting privileges, knowledge of patient current condition, hospital course, and medical plan of care. Services: Services provided to patient in accordance with Admission requirements found in Title 42 Section 412.3 of the Code of Federal Regulations Patient History Date of Service: 03/28/23 Reason for admission: left femur fracture History of Present Illness: 77-year-old woman with multiple medical problems including diabetes, chronic systolic heart failure with severely depressed LV function status post AICD was brought to the emergency department because patient fell and could not get up. According to the family patient reported she tripped and fell while sleeping her garage. Images done in the emergency department demonstrated subcapital fracture of the left femur. Patient could not provide history because of dementia. Orthopedic surgeon Dr. Arizmendi informed, patient is hospitalized for further management. Allergies Penicillins Allergy (Mild, Verified 03/29/14 22:36) Hives/Rash No Known Allergie Allergy (Uncoded 11/11/15 08:18) Unknown Home Medications: Amiodarone HCl [Cordarone*] 1 tab PO DAILY 05/30/17 Furosemide 1 tab PO DAILY 05/30/17 Insulin Glargine,Hum.rec.anlog [Lantus] 25 unit SQ DAILYPRN PRN 05/30/17 Sacubitril/Valsartan [Entresto 24 mg-26 mg Tablet] 1 tab PO DAILY 05/30/17 carvediloL [Carvedilol] 1 tab PO BID 05/30/17 Clopidogrel Bisulfate [Plavix*] 75 mg PO DAILY 08/25/21 Memantine HCl [Namenda] 10 mg PO DAILY 08/25/21 Rosuvastatin Calcium [Crestor] 20 mg PO DAILY 08/25/21 Tramadol HCl [Ultram] 50 mg PO BID PRN 08/25/21 Gabapentin 300 mg PO BID 03/09/22 Omeprazole 20 mg PO DAILY 12/23/22 - Past Medical/Surgical History Diabetic: Yes -: HLD -: Systolic CHF -: HTN -: DM -: dementia -: CKD -: thrombocytopenia -: PAD -: Pacer/Defib -: Back sX -: Hysterectomy -: Vascular Sx Psychosocial/ Personal History: Patient lives at home with family - Family History Mother -: Hypertension Sister -: Kidney disease Father -: Heart disease Brother -: Heart disease - Social History Alcohol use: No CD- Drugs: No Caffeine use: Yes Review of Systems Other: No reported nausea or vomiting or diarrhea. No reported shortness of breath. No reported seizures. Review of systems is limited because of patient's dementia. Physical Examination - Physical Exam General: In no apparent distress, Oriented x1, Cooperative, Other (Awake) HEENT: Atraumatic, Mucous membr. moist/pink, EOMI, Sclerae nonicteric Neck: Supple, JVD not distended Respiratory: Clear to auscultation bilaterally, Normal air movement Cardiovascular: No edema, Regular rate/rhythm, Normal S1 S2 Gastrointestinal: Normal bowel sounds, Soft and benign, Non-distended, No tenderness Musculoskeletal: No swelling, No erythema Integumentary: No rashes, No cyanosis Neurological: Normal speech, Other (No focal motor deficit) - Studies Laboratory Data (last 24 hrs) 03/28/23 03/28/23 03/28/23 14:47 14:47 14:47 WBC 4.50 Hgb 13.1 Hct 40.0 Plt Count 125 L PT 13.0 H INR 1.19 Sodium 136 Potassium 4.9 BUN 36 H Creatinine 2.07 H Glucose 205 H Magnesium 2.3 Total Bilirubin 0.3 AST 15 ALT 25 Alkaline Phosphatase 105 Assessment and Plan - Problems (Diagnosis) (1) Closed left hip fracture Current Visit: Yes Status: Acute (2) Chronic systolic heart failure Current Visit: Yes Status: Acute (3) Diabetes mellitus, type II Onset Date: 05/31/16 Current Visit: No Status: Chronic Qualifiers: Diabetes mellitus intermodal customer service insulin use: with intermodal customer service use Diabetes mellitus complication status: without complication Qualified Code(s): E11.9 - Type 2 diabetes mellitus without complications; Z79.4 - intermodal customer service (current) use of insulin (4) Hypertension Onset Date: 05/31/16 Current Visit: No Status: Chronic Qualifiers: Hypertension type: essential hypertension Qualified Code(s): I10 - Essential (primary) hypertension - Plan Left hip fracture/fall Admit to the medical floor Analgesics as needed Place Forrest catheter Orthopedic surgery consulted Noted mild thrombocytopenia. Chronic systolic heart failure Patient appears compensated for CHF. Vitals are stable. History of severe LV dysfunction but no active cardiac disease. Cardiology consult Repeat echocardiogram. Continue home medications. Diabetes mellitus type 2 Insulin sliding scale for glucose management. Hold Lantus insulin. Essential hypertension Continue home antihypertensives. DVT prophylaxis: Heparin subQ. - Advance Directives Does patient have a Living Will: No Does patient have a Durable POA for Healthcare: No
[2023-03-28 20:33] VITALS: BMI 39.4
[2023-03-28] MEDS: HYDROMORPHONE HCL 1 MG/ML INJ IV PRN (20:54)
[2023-03-28] MEDS: INSULIN REGULAR (HUMAN) 100 UNIT/ML SQ SCH (20:54)
[2023-03-28] MEDS: HEPARIN 5000 UNIT/ML 1 ML VIAL SQ SCH (20:54)
[2023-03-28] MEDS: ONDANSETRON 4 MG/2 ML VIAL IV PRN (20:54)
[2023-03-29 05:55] LABS: Absolute Lymphocytes (CBC) 0.5 K/uL (0.7-4.9); Hematocrit 37.4 % (36.0-45.0); Lymphocytes % 8.7 % (15.3-44.8); MCV 91.6 fL (80-100); Platelets 123 thou/uL (152-406); RBC Red Blood Cell Count 4.08 M/uL (3.86-4.86)
[2023-03-29 06:11] LABS: Magnesium 2.3 mg/dL (1.6-2.4); Phosphorus 4.5 mg/dL (2.5-4.9); Potassium 5.3 mEq/L (3.5-5.1)
--- NOTE | 2023-03-29 12:26 | RAD REPORT ---
EXAM DESCRIPTION: RAD - Wrist Left 3 View - 03/29/2023 11:15 am CLINICAL HISTORY: Fall with left wrist pain r/o wrist fracture COMPARISON: No comparisons TECHNIQUE: Left wrist, 3 views. FINDINGS: No acute fracture. There is no dislocation or periosteal reaction noted. No suspicious bon y finding. Up to moderate degenerative changes at the thumb base. No foreign body or other soft tissu e abnormality. IMPRESSION: No acute osseous abnormality. Up to moderate degenerative changes at the thumb base.
--- NOTE | 2023-03-29 12:56 | P.PN ---
Subjective Date of Service: 03/29/23 Chief Complaint: left femur fracture Patient complaining of pain in the left wrist and the left hip. No issues overnight. Decreased urine output. Patient is n.p.o. for possible orthopedic surgery today. Physical Examination - Vital Signs Temperature: 98.9 F Blood Pressure: 101/46 Pulse: 70 Respirations: 16 Pulse Ox (%): 98 - Physical Exam General: In no apparent distress, Other (Awake) HEENT: Mucous membr. moist/pink, Sclerae nonicteric Neck: Supple, JVD not distended Respiratory: Clear to auscultation bilaterally, Normal air movement Cardiovascular: No edema, Regular rate/rhythm, Irregular heart rate/rhythm Gastrointestinal: Soft and benign, Non-distended Musculoskeletal: No swelling, Tenderness (Left wrist) Integumentary: No rashes, No cyanosis Neurological: Normal speech, Dementia - Studies Laboratory Data (last 24 hrs) 03/28/23 03/28/23 03/28/23 14:47 14:47 14:47 WBC 4.50 Hgb 13.1 Hct 40.0 Plt Count 125 L PT 13.0 H INR 1.19 Sodium 136 Potassium 4.9 BUN 36 H Creatinine 2.07 H Glucose 205 H Magnesium 2.3 Total Bilirubin 0.3 AST 15 ALT 25 Alkaline Phosphatase 105 Assessment And Plan - Current Problems (Diagnosis) (1) Closed left hip fracture Current Visit: Yes Status: Acute (2) Chronic systolic heart failure Current Visit: Yes Status: Acute (3) Diabetes mellitus, type II Onset Date: 05/31/16 Current Visit: No Status: Chronic Qualifiers: Diabetes mellitus termite helper insulin use: with jail use Diabetes alba litus complication status: without complication Qualified Code(s): E11.9 - Type 2 diabetes mellitus without complications; Z79.4 - buttermaker (current) use of insulin (4) Hypertension Onset Date: 05/31/16 Current Visit: No Status: Chronic Qualifiers: Hypertension type: essential hypertension Qualified Code(s): I10 - Essential (primary) hypertension - Plan Left hip fracture/fall Analgesics as needed Forrest catheter in place. Dr. Arizmendi is planning surgery today pending cardiology clearance. Noted mild thrombocytopenia. Chronic systolic heart failure Patient appears compensated for CHF. Vitals are stable. History of severe LV dysfunction but no active cardiac disease. Cardiology consulted Echocardiogram ordered. Continue home medications. Diabetes mellitus type 2 Insulin sliding scale for glucose management. Hold Lantus insulin. Essential hypertension Continue home antihypertensives. Acute on chronic kidney disease stage III Decreased urine output. Briefly hydrated with IV normal saline. Monitor closely for volume overload. Left wrist pain X-ray of the wrist shows no fracture. Analgesics as needed. DVT prophylaxis: Heparin subQ.
[2023-03-29] MEDS: D5 0.9 NS 1,000 ML IV SCH (13:26)
--- NOTE | 2023-03-29 13:32 | P.CNS ---
Date of Consult: 03/28/23 Reason for Consult: preoperative clearance Chief Complaint: left femur fracture History of Present Illness: patient with PMH of systolic heart failure presented to the hospital after a fall, sustained hip fracture and need surgical clearance, denies any chest pain, no BARRAZA, no palpitation, no syncope. Allergies Penicillins Allergy (Mild, Verified 03/29/14 22:36) Hives/Rash No Known Allergie Allergy (Uncoded 11/11/15 08:18) Unknown Home Medications: Amiodarone HCl [Cordarone*] 1 tab PO DAILY 05/30/17 Furosemide 1 tab PO DAILY 05/30/17 Insulin Glargine,Hum.rec.anlog [Lantus] 20 unit SQ DAILYPRN PRN 05/30/17 Sacubitril/Valsartan [Entresto 24 mg-26 mg Tablet] 1 tab PO DAILY 05/30/17 carvediloL [Carvedilol] 1 tab PO BID 05/30/17 Clopidogrel Bisulfate [Plavix*] 75 mg PO DAILY 08/25/21 Memantine HCl [Namenda] 10 mg PO DAILY 08/25/21 Rosuvastatin Calcium [Crestor] 20 mg PO DAILY 08/25/21 Tramadol HCl [Ultram] 50 mg PO BID PRN 08/25/21 Omeprazole 20 mg PO DAILY 12/23/22 - Past Medical/Surgical History Diabetic: Yes -: HLD -: Systolic CHF -: HTN -: DM -: dementia -: CKD -: thrombocytopenia -: PAD -: Pacer/Defib -: Back sX -: Hysterectomy -: Vascular Sx Psychosocial/ Personal History: Patient lives at home with family - Family History Mother Medical History: Hypertension Sister Medical History: Kidney disease Brother Medical History: Heart disease - Social History Smoking Status: Unknown if ever smoked Alcohol use: No CD- Drugs: No Caffeine use: Yes Place of Residence: Home Physical Examination Temp Pulse Resp BP Pulse Ox 98.9 F 70 16 101/46 L 98 03/29/23 12:58 03/29/23 12:58 03/29/23 12:58 03/29/23 12:58 03/29/23 12:58 General: Alert, Oriented x3 HEENT: Atraumatic Neck: Supple Respiratory: Clear to auscultation bilaterally Cardiovascular: No edema, Normal S1 S2, No rubs, No murmurs Gastrointestinal: Normal bowel sounds Musculoskeletal: No clubbing, No swelling Neurological: Normal speech Laboratory Data (last 24 hrs) 03/28/23 03/28/23 03/28/23 14:47 14:47 14:47 WBC 4.50 Hgb 13.1 Hct 40.0 Plt Count 125 L PT 13.0 H INR 1.19 Sodium 136 Potassium 4.9 BUN 36 H Creatinine 2.07 H Glucose 205 H Magnesium 2.3 Total Bilirubin 0.3 AST 15 ALT 25 Alkaline Phosphatase 105 - Problems (1) Chronic systolic heart failure Current Visit: Yes Status: Acute Plan: Pateint is well compensated at this time, continue medical managment. Hold enetresto prior to surgery. Continue Coreg Continue amiodarone (2) Closed left hip fracture Current Visit: Yes Status: Acute Plan: Patient is not in acute heart failure, ;looks euovolemic on exam, patient echo shows mild improvement in EF up to 40-45%, Ok to proceed with surgery as intermediate cardiac risk for surgery.
[2023-03-29 14:34] LABS: Magnesium 2.2 mg/dL (1.6-2.4); Phosphorus 4.1 mg/dL (2.5-4.9)
--- NOTE | 2023-03-29 15:00 | ECHO ---
HEIGHT: 5 ft 3 in WEIGHT: 223 lb 0 oz DATE OF STUDY: 03/29/[address]: Rey Gagnon MD 2-DIMENSIONAL: YES M.MODE: YES DOPPLER: YES COLOR FLOW: YES TDS: NO PORTABLE: YES DEFINITY: NO BUBBLE STUDY: NO DIAGNOSIS: CADIAC CLEARANCE CARDIAC HISTORY: CATHERIZATION: NO SURGERY: NO PROSTHETIC VALVE: NO PACEMAKER: YES MEASUREMENTS (cm) DIASTOLIC (NORMALS) SYSTOLIC (NORMALS) IVSd 1.1 (0.6-1.2) LA Diam 4.2 (1.9-4.0) LVEF 48% LVIDd 5.0 (3.5-5.7) LVIDs 3.8 (2.0-3.5) %FS 24% LVPWd 1.2 (0.6-1.2) Ao Diam 2.6 (2.0-3.7) 2 DIMENSIONAL ASSESSMENT: RIGHT ATRIUM: NORMAL LEFT ATRIUM: ENLARGED RIGHT VENTRICLE: NORMAL, RIGHT VENTRICULAR LEAD LEFT VENTRICLE: MODERATELY REDUCED FUNCTION, EJECTION FRACTION 40-45% TRICUSPID VALVE: NORMAL MITRAL VALVE: NORMAL PULMONIC VALVE: NORMAL AORTIC VALVE: NORMAL PERICARDIAL EFFUSION: NONE AORTIC ROOT: NORMAL LEFT VENTRICULAR WALL MOTION: 1. MODERATE GLOBAL HYPOKINESIS 2. SEPTAL WALL MOTION AKINESIS WITH CONDUCTION DELAY DOPPLER/COLOR FLOW: DIASTOLIC DYSFUNCTION. COMMENTS: 1. MODERATE REDUCED LEFT VENTRICULAR FUNCTION, EJECTION FRACTION 40-45%, MODERATE GLOBAL HYPOKINESIS. 2. DIASTOLIC DYSFUNCTION 3. RIGHT VENTRICULAR PACEMAKER LEAD SEEN 4. TRACE OF TRICUSPID REGURGITATION, INSUFFICIENT TO ESTIMATED RIGHT VENTRICULAR SYSTOLIC PRESSRE 5. LEFT ATRIAL ENLARGEMENT. TECHNOLOGIST: HUNTER RODGERS
[2023-03-29] MEDS: NA CHLORIDE 0.9% 1,000 ML ONE ×2 (15:39→18:00)
[2023-03-29] MEDS ORDERED: propofoL 200 MG/20 ML VIAL IV ONE (16:45)
[2023-03-29] MEDS ORDERED: FENTANYL CITR 100 MCG/2 ML ONE (16:45)
[2023-03-29] MEDS ORDERED: LIDOCAINE 2% MPF 5 ML VIAL ONE (16:45)
[2023-03-29] MEDS ORDERED: Phenylephrine HCl 10 MG/ML 1 ML VIAL ONE (16:49)
[2023-03-29] MEDS ORDERED: NS 0.9% VIAL 10 ML ONE (16:49)
[2023-03-29] MEDS ORDERED: NS 0.9% VIAL 0 ML ONE (16:49)
[2023-03-29] MEDS ORDERED: EPHEDRINE SULF 50 MG/ML VIAL ONE (17:13)
[2023-03-29] MEDS: CEFAZOLIN SODIUM 2 GM/VIAL ONE (17:15)
[2023-03-29] MEDS: TRANEXAMIC ACID 1,000 MG/10 ML VIAL IV ONE ×2 (17:19→18:11)
[2023-03-29] MEDS: CEFAZOLIN SODIUM 1 GM/VIAL ONE (18:12)
[2023-03-29] MEDS ORDERED: ONDANSETRON 4 MG/2 ML VIAL ONE (18:38)
[2023-03-29] MEDS: HYDROMORPHONE HCL 1 MG/ML INJ ONE ×2 (19:03→19:33)
[2023-03-29] MEDS ORDERED: ONDANSETRON 4 MG/2 ML VIAL IV PRN (19:37)
--- NOTE | 2023-03-29 19:53 | RAD REPORT ---
EXAM DESCRIPTION: RAD - Pelvis - 03/29/2023 7:46 pm CLINICAL HISTORY: S/P L HIP HEMIARTHROPLASTY COMPARISON: Pelvis dated 03/28/2023 FINDINGS: Left total hip arthroplasty is noted. No unexpected postoperative finding.
--- NOTE | 2023-03-29 20:21 | CON ---
Preoperative Diagnosis: Left femoral neck fracture. History Of Present Illness: Ms. Hendrix is a 77-year-old woman who has some medical problems and mor bid obesity, who sustained a fall in her home. She was an independent ambulator without a walker josue or to this incident. She sustained a complete femoral neck fracture. We were asked to evaluate this and treat this. She will be taken to the OR for a left hemiarthroplasty after completion of medical optimization. RUSSELL/JAROCHO Voice ID: [id number] Report ID: [id number]
--- NOTE | 2023-03-29 20:57 | OP ---
Surgeon: Ivan Arizmendi MD Preoperative Diagnosis: Left hip femoral neck fracture. Postoperative Diagnosis: Left hip femoral neck fracture. Procedure Performed: Left hip hemiarthroplasty. Lining Cementer: Param Tatum RN. Complications: None. Disposition: Recovery room, stable. Estimated Blood Loss: 100 cc. Operative Report In Detail: The patient was taken to the operative suite, placed in supine position, induced with anesthesia. Left hip prepped and draped in usual sterile fashion. The patient was shane te large, BMI of 39.56. A posterior approach to the hip was utilized after appropriate positioning a nd prep. We were approximately 6 inches in adipose tissue before encountering the fascia. It was in cised longitudinally. Bursectomy performed. External rotators elevated and tagged for later reattac hment followed by delivery of fractured femoral neck. Osteotomized one fingerbreadth above the lesse r trochanter. The femoral head was delivered measuring 47 mm in diameter. Ream and broach technique was appropriate for 14 standard offset implant. A -3 ball for the bipolar was appropriate. Permane nt implants placed. A meticulous layered closure was performed with Alem placed in the fat. The patient tolerated procedure well, was reversed from anesthesia, and sh ould be in the recovery room stable. RUSSELL/JAROCHO Voice ID: [id number] Report ID: [id number]
[2023-03-29] MEDS: HYDROCODONE/APAP 5/325 MG TAB PO PRN (21:52)
[2023-03-30] MEDS ORDERED: ASPIRIN 325 MG TAB PO SCH
[2023-03-30] MEDS: CEFAZOLIN 1 GM in NA CHLORIDE 0.9% 50 ML IVPB SCH (00:02)
[2023-03-30] MEDS: HYDROMORPHONE HCL 1 MG/ML INJ IV PRN (00:02)
[2023-03-30] MEDS: ASPIRIN 325 MG TAB PO SCH ×2 (00:02→08:14)
[2023-03-30 07:32] LABS: Absolute Lymphocytes (CBC) 0.3 K/uL (0.7-4.9); MCV 92.7 fL (80-100); Platelets 95 thou/uL (152-406); RBC Red Blood Cell Count 3.78 M/uL (3.86-4.86)
[2023-03-30] MEDS: CLOPIDOGREL 75 MG TABLET PO SCH (08:08)
[2023-03-30 08:26] LABS: Blood Morphology Comment NOT SEEN (NOT SEEN); Platelet Estimate DECR; White Blood Cell Scan OK (OK)
[2023-03-30] MEDS: AMIODARONE HCL 200 MG TAB PO SCH (09:13)
[2023-03-30] MEDS: carvediloL 3.125 MG TAB PO SCH (09:13)
--- NOTE | 2023-03-30 09:58 | P.PN ---
Subjective Date of Service: 03/30/23 Chief Complaint: left femur fracture Subjective: No new changes (patient is feeling ok. s/p surgery) Review of Systems 10-point ROS is otherwise unremarkable Physical Examination - Vital Signs Temperature: 99.3 F Blood Pressure: 138/49 Pulse: 79 Respirations: 20 Pulse Ox (%): 98 - Physical Exam General: Alert, Oriented x3 HEENT: Atraumatic Neck: Supple, 2+ carotid pulse no bruit Respiratory: Clear to auscultation bilaterally Cardiovascular: No edema, Normal S1 S2, No murmurs Gastrointestinal: Normal bowel sounds Assessment And Plan - Current Problems (Diagnosis) (1) Chronic systolic heart failure Onset Date: ~03/28/23 Current Visit: Yes Status: Acute Plan: Pateint is well compensated at this time, continue medical managment. Hold enetresto prior to surgery. resume Coreg 3.125 mg po BID Continue amiodarone 200 mg po daily hold Entresto for now (2) Closed left hip fracture Current Visit: Yes Status: Acute Plan: Patient is not in acute heart failure, ;looks euovolemic on exam, patient echo shows mild improvement in EF up to 40-45%, Ok to proceed with surgery as intermediate cardiac risk for surgery.
--- NOTE | 2023-03-30 13:04 | P.PN ---
Subjective Date of Service: 03/30/23 Chief Complaint: left femur fracture Status post left hemiarthroplasty yesterday. No issues overnight. Patient complaining of left hip pain, denies pain in her left wrist. Vitals have been stable. Urine output has improved. Physical Examination - Vital Signs Temperature: 98.9 F Blood Pressure: 138/61 Pulse: 76 Respirations: 16 Pulse Ox (%): 99 - Physical Exam General: In no apparent distress, Oriented x2 HEENT: Mucous membr. moist/pink Neck: Supple, JVD not distended Respiratory: Clear to auscultation bilaterally, Normal air movement Cardiovascular: No edema, Regular rate/rhythm, Normal S1 S2 Gastrointestinal: Normal bowel sounds, Soft and benign, Non-distended Musculoskeletal: No swelling Integumentary: No cyanosis Neurological: Other (No focal motor deficit) Assessment And Plan - Current Problems (Diagnosis) (1) Closed left hip fracture Current Visit: Yes Status: Acute (2) Chronic systolic heart failure Onset Date: ~03/28/23 Current Visit: Yes Status: Acute (3) Diabetes mellitus, type II Onset Date: 05/31/16 Current Visit: No Status: Chronic Qualifiers: 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 Status post left hemiarthroplasty. Noted mild thrombocytopenia. PT to evaluate. Chronic systolic heart failure Patient appears compensated for CHF. Vitals are stable. History of severe LV dysfunction but no active cardiac disease. Cardiology input appreciated. Echocardiogram yesterday shows EF of 40 to 45% which is significant improvement compared to echocardiogram in 2017. Continue home medications. Diabetes mellitus type 2 Insulin sliding scale for glucose management. Resume Lantus insulin and titrate. Essential hypertension Continue home antihypertensives. Acute on chronic kidney disease stage III Decreased urine output. Serum creatinine improved. Patient with significant urine output past 24 hours. Monitor closely for volume overload. Nephrology consult Left wrist pain X-ray of the wrist shows no fracture. Analgesics as needed. DVT prophylaxis: Heparin subQ.
[2023-03-30] MEDS: ENOXAPARIN 30 MG/0.3 ML SQ SCH (16:02)
[2023-03-30] MEDS: ROSUVASTATIN 10 MG TAB PO SCH (19:40)
[2023-03-31] MEDS: PANTOPRAZOLE 40MG TABLET PO SCH (05:39)
[2023-03-31 06:30] LABS: Absolute Lymphocytes (CBC) 0.5 K/uL (0.7-4.9); Hematocrit 33.6 % (36.0-45.0); Lymphocytes % 5.5 % (15.3-44.8); MCV 92.5 fL (80-100); MPV 10.1 fL (7.6-11.3); Platelets 91 thou/uL (152-406); RBC Red Blood Cell Count 3.63 M/uL (3.86-4.86)
[2023-03-31 06:42] LABS: Magnesium 2.2 mg/dL (1.6-2.4); Phosphorus 2.9 mg/dL (2.5-4.9); Potassium 4.6 mEq/L (3.5-5.1)
[2023-03-31 06:43] LABS: Albumin 2.4 g/dL (3.4-5.0)
[2023-03-31] MEDS: MEMANTINE HCL 10 MG TABLET PO SCH (08:09)
[2023-03-31] MEDS: INSULIN GLARGINE 100 UNIT/ML SQ SCH (08:10)
[2023-03-31] MEDS: ACETAMINOPHEN 325 MG TABLET PO PRN (08:43)
[2023-03-31] MEDS ORDERED: CLOPIDOGREL 75 MG TABLET PO SCH (09:00)
[2023-03-31] MEDS ORDERED: HOME MED 1 EA UNK (Rosuvastatin Calcium [Crestor] 20 MG Tablet) PO SCH (09:00)
[2023-03-31] MEDS ORDERED: AMIODARONE HCL 200 MG TAB PO SCH (09:00)
[2023-03-31] MEDS: Levofloxacin 750mg IV 750 MG/150 ML BAG IV SCH (09:38)
--- NOTE | 2023-03-31 11:04 | RAD REPORT ---
EXAM DESCRIPTION: RAD - Chest Single View - 03/31/2023 10:09 am CLINICAL HISTORY: post-op fever Chest pain. COMPARISON: Chest Single View dated 03/28/2023; Chest Single View dated 12/23/2022; Chest Single View d ated 11/30/2022; Chest Single View dated 03/09/2022 FINDINGS: Portable technique limits examination quality. Mild pulmonary edema. The heart is mildly enlarged. Single lead pacer/defibrillator device. IMPRESSION: Mild CHF.
--- NOTE | 2023-03-31 15:18 | P.PN ---
Subjective Date of Service: 03/31/23 Chief Complaint: left femur fracture Status post left hemiarthroplasty. Postop day 2. Patient experienced fever up to 101. No agitation. Physical Examination - Vital Signs Temperature: 96.5 F Blood Pressure: 106/54 Pulse: 67 Respirations: 18 Pulse Ox (%): 95 - Physical Exam General: In no apparent distress, Confused HEENT: Mucous membr. moist/pink Neck: JVD not distended Respiratory: Clear to auscultation bilaterally, Normal air movement Cardiovascular: No edema, Regular rate/rhythm, Normal S1 S2 Gastrointestinal: Normal bowel sounds, Soft and benign, Non-distended, No tenderness Musculoskeletal: No swelling Integumentary: No rashes, No cyanosis Neurological: Other (No focal motor deficit) Assessment And Plan - Current Problems (Diagnosis) (1) Closed left hip fracture Current Visit: Yes Status: Acute (2) Chronic systolic heart failure Onset Date: ~03/28/23 Current Visit: Yes Status: Acute (3) Diabetes mellitus, type II Onset Date: 05/31/16 Current Visit: No Status: Chronic Qualifiers: 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 Noted mild thrombocytopenia. Patient was able to stand with PT yesterday. Continue PT Anticipating disposition to skilled rehab Postop fever Transient Likely secondary to atelectasis. Urine culture has shown no growth. Obtain blood culture. Chest x-ray shows mild CHF. No infiltrate. Empiric IV Levaquin as we wait for blood culture to result. Incentive spirometry. Chronic systolic heart failure Patient appears compensated for CHF. Vitals are stable. History of severe LV dysfunction but no active cardiac disease. Cardiology input appreciated. Echocardiogram shows EF of 40 to 45% which is significant improvement compared to echocardiogram in 2017. Continue home medications. Diabetes mellitus type 2 Insulin sliding scale for glucose management. Continue Lantus insulin and titrate. Essential hypertension Continue home antihypertensives. Acute on chronic kidney disease stage III Serum creatinine improved. Patient with significant urine output past 24 hours. Monitor closely for volume overload. Nephrology consulted. Left wrist pain X-ray of the wrist shows no fracture. Analgesics as needed. DVT prophylaxis: Heparin subQ.
--- NOTE | 2023-03-31 19:19 | P.CNS ---
Date of Consult: 04/01/23 Reason for Consult: TERRY/ CKD Requesting Physician: sukhwinder anand Chief Complaint: Left femur fracture History of Present Illness: 77-year-old woman with multiple medical problems including diabetes, chronic systolic heart failure with severely depressed LV function status post AICD was brought to the emergency department because patient fell and could not get up. According to the family patient reported she tripped and fell while sleeping her garage. Images done in the emergency department demonstrated subcapital fracture of the left femur. Patient could not provide history because of dementia. Orthopedic surgeon Dr. Arizmendi informed, patient is hospitalized for further management. [id number] 15:59 This 77 yrs old Black Female presents to ER via EMS with complaints of Hip Injury. ranjan 15:59 The patient or guardian reports decreased range of motion. Limited HPI/ ROS due to AMS. Sister is at the bedside. Allergies Penicillins Allergy (Mild, Verified 03/29/14 22:36) Hives/Rash No Known Allergie Allergy (Uncoded 11/11/15 08:18) Unknown Home medications list reviewed: Yes Home Medications: Amiodarone HCl [Cordarone*] 1 tab PO DAILY 05/30/17 Furosemide 1 tab PO DAILY 05/30/17 Insulin Glargine,Hum.rec.anlog [Lantus] 20 unit SQ DAILYPRN PRN 05/30/17 Sacubitril/Valsartan [Entresto 24 mg-26 mg Tablet] 1 tab PO DAILY 05/30/17 carvediloL [Carvedilol] 1 tab PO BID 05/30/17 Clopidogrel Bisulfate [Plavix*] 75 mg PO DAILY 08/25/21 Memantine HCl [Namenda] 10 mg PO DAILY 08/25/21 Rosuvastatin Calcium [Crestor] 20 mg PO DAILY 08/25/21 Tramadol HCl [Ultram] 50 mg PO BID PRN 08/25/21 Omeprazole 20 mg PO DAILY 12/23/22 - Past Medical/Surgical History Diabetic: Yes -: HLD -: Systolic CHF -: HTN -: DM II -: Dementia -: CKD III with Proteinuria (Dr. Obando/ Dr. Soriano) -: Thrombocytopenia -: PAD -: Pacer/Defib -: Back sX -: Hysterectomy -: Vascular Sx Psychosocial/ Personal History: Patient lives at home with family - Family History Mother Medical History: Hypertension Sister Medical History: Kidney disease Father Medical History: Heart disease Brother Medical History: Heart disease - Social History Smoking Status: Unknown if ever smoked Alcohol use: No CD- Drugs: No Caffeine use: Yes Place of Residence: Home Review of Systems is unable to be obtained Physical Examination Temp Pulse Resp BP Pulse Ox 97.0 F 72 20 127/43 L 96 03/31/23 16:00 03/31/23 16:00 03/31/23 16:00 03/31/23 16:00 03/31/23 16:00 General: In no apparent distress, Cooperative HEENT: Atraumatic Neck: Supple Respiratory: Normal air movement Cardiovascular: No edema, Regular rate/rhythm Gastrointestinal: Non-distended Musculoskeletal: No clubbing, No contractures Integumentary: No rashes, No cyanosis Neurological: Normal speech Urinary: Forrest catheter Blood work reviewed in the chart Imagings Data: EXAM DESCRIPTION: RAD - Chest Single View - 03/31/2023 10:09 am CLINICAL HISTORY: post-op fever Chest pain. COMPARISON: Chest Single View dated 03/28/2023; Chest Single View dated 12/23/2022; Chest Single View dated 11/30/2022; Chest Single View dated 03/09/2022 FINDINGS: Portable technique limits examination quality. Mild pulmonary edema. The heart is mildly enlarged. Single lead pacer/defibrillator device. IMPRESSION: Mild CHF. EXAM DESCRIPTION: CT - Head C Spine Cap Wo Con - 03/28/2023 2:06 pm CLINICAL HISTORY: Trauma, head and neck injury. Chest, abdomen and pelvis pain. PAIN COMPARISON: No comparisons TECHNIQUE: CT head without contrast. CT cervical spine without contrast with coronal and sagittal reformatted images. CT chest, abdomen and pelvis with coronal and sagittal reformatted images of the spine. All CT scans are performed using dose optimization technique as appropriate and may include automated exposure control or mA/KV adjustment according to patient size. FINDINGS: CT HEAD WITHOUT CONTRAST: No intracranial hemorrhage, hydrocephalus or extra-axial fluid collection. No acute large vascular territory infarct. The paranasal sinuses and mastoids are clear. The calvarium is intact. CT CERVICAL SPINE WITHOUT CONTRAST: No fracture or subluxation. The prevertebral soft tissues are normal in thickness.Multilevel degenerative changes are present in the spine. Multilevel cervical spondylosis with varying degrees of neural foraminal narrowing. 2 millimeters anterolisthesis of C5 on C6 and C6 on C7 noted. This is likely related to underlying degenerative changes. There is a least moderate central spinal stenosis at C4-5. MRI could fu rther assess these findings. CT CHEST, ABDOMEN, PELVIS: Thorax: Chest Wall: No abnormal mass left upper chest wall pacemaker. Lungs: No acute abnormality. Pleura: No effusions or pneumothorax. Karissa/Mediastinum: No lymphadenopathy. Aorta/Pulmonary Arteries: Unremarkable Heart: Normal size. Abdomen/Pelvis: Liver: No acute abnormality or suspicious lesions. Biliary: No biliary ductal dilatation. Stomach: No significant focal abnormality. Duodenum: No significant focal abnormality. Pancreas: No significant abnormality. Spleen: No significant abnormality. Adrenal: No suspicious lesions. Kidney/ureter: No hydronephrosis. No renal calculi. Retroperitoneum: No retroperitoneal adenopathy. Vascular: No aneurysm. Bowel: No significant focal abnormality. Peritoneum: No ascites or free air. Bladder: Grossly unremarkable. Reproductive: Hysterectomy. Bones: Mildly displaced angulated left subcapital femoral neck fracture. No other fractures identified. Multilevel degenerative changes are present in the spine. Grade 1 anterolisthesis of L4 on L5. Other: n/a IMPRESSION: 1. No acute intracranial abnormality. 2. No acute fracture or traumatic malalignment of the cervical spine. 3. Mildly displaced and angulated left subcapital femoral neck fracture. No other evidence of significant trauma to the chest, abdomen, or pelvis. LEFT VENTRICULAR WALL MOTION: 1. MODERATE GLOBAL HYPOKINESIS 2. SEPTAL WALL MOTION AKINESIS WITH CONDUCTION DELAY DOPPLER/COLOR FLOW: DIASTOLIC DYSFUNCTION. COMMENTS: 1. MODERATE REDUCED LEFT VENTRICULAR FUNCTION, EJECTION FRACTION 40- 45%, MODERATE GLOBAL HYPOKINESIS. 2. DIASTOLIC DYSFUNCTION 3. RIGHT VENTRICULAR PACEMAKER LEAD SEEN 4. TRACE OF TRICUSPID REGURGITATION, INSUFFICIENT TO ESTIMATED RIGHT VENTRICULAR SYSTOLIC PRESSRE 5. LEFT ATRIAL ENLARGEMENT. Conclusions/Impression: Stage I TERRY likely due to hypovolemia CKD III with Proteinuria -No NSAIDs HTN with CKD/ CHF -Continue Coreg Systolic Diastolic CHF, chronic -Daily weight -Low sodium diet DM II with CKD -Continue Lantus -RISS Anemia in chronic illness -Monitor H&H Hospitalist and ER notes reviewed Thank you kindly for the consultation
[2023-04-01 05:50] LABS: Specific Gravity 1.026 (1.005-1.030); Urine Bacteria <20 /HPF (<20); Urine Bilirubin NEGATIVE (Negative); Urine Blood 2+ (Negative); Urine Clarity Extremely Turbid (Clear); Urine Color Light-Yellow (Yellow); Urine Glucose NEGATIVE (Negative); Urine Mucus Slight /HPF (None Seen); Urine Protein 1+ (Negative); Urine RBC 21-50 /HPF (None Seen); Urine Urobilinogen Normal (Normal); Urine pH 5.5 (5.0-7.0)
[2023-04-01 06:08] LABS: UR PROTEIN 98.8 mg/dL (<11.9); Urine Protein/Creatinine Ratio 0.5 ratio (<0.15)
[2023-04-01 06:35] LABS: Absolute Lymphocytes (CBC) 0.7 K/uL (0.7-4.9); Hematocrit 29.7 % (36.0-45.0); Lymphocytes % 7.8 % (15.3-44.8); MCV 91.5 fL (80-100); MPV 10.6 fL (7.6-11.3); Platelets 84 thou/uL (152-406); RBC Red Blood Cell Count 3.25 M/uL (3.86-4.86)
[2023-04-01 06:54] LABS: Phosphorus 2.8 mg/dL (2.5-4.9); Potassium 4.6 mEq/L (3.5-5.1); Uric Acid 6.3 mg/dL (2.6-6.0)
[2023-04-01 07:09] LABS: UR MICROALBUMIN 8.9 mg/dL (< 1.9)
--- NOTE | 2023-04-01 13:49 | EKG ---
Test Date: 2023-03-28 Test Time: 15:06:25 [employer] Operator: FABRICIO MEASUREMENT RESULTS: Intervals: Rate: 59 NC: 254 QRSD: 134 QT: 504 QTc: 498 [place]: P: 72 NC: 254 QRS: -37 T: 92 INTERPRETIVE STATEMENTS: Sinus bradycardia with 1st degree AV block Left axis deviation Left bundle branch block Abnormal ECG Compared to ECG 12/23/2022 04:54:10 Left bundle-branch block now present Sinus rhythm no longer present Myocardial infarct finding no longer present Electronically Signed On 04-01-23 13:37:02 [employer] by Lee Garza
--- NOTE | 2023-04-01 14:07 | P.PN ---
Subjective Date of Service: 04/01/23 Chief Complaint: Left femur fracture Status post left hemiarthroplasty. Postop day 3. No more fever recorded She has been agitated intermittently. She was noted to be confused this morning. Physical Examination - Vital Signs Temperature: 97.7 F Blood Pressure: 137/84 Pulse: 70 Respirations: 20 Pulse Ox (%): 98 - Physical Exam General: In no apparent distress, Confused HEENT: Mucous membr. moist/pink Neck: Supple, JVD not distended Respiratory: Clear to auscultation bilaterally, Normal air movement Cardiovascular: No edema, Regular rate/rhythm, Normal S1 S2 Gastrointestinal: Normal bowel sounds, Soft and benign, Non-distended, No tenderness Musculoskeletal: No swelling Integumentary: No rashes, No cyanosis Neurological: Other (No focal motor deficit) Assessment And Plan - Current Problems (Diagnosis) (1) Closed left hip fracture Current Visit: Yes Status: Acute (2) Chronic systolic heart failure Onset Date: ~03/28/23 Current Visit: Yes Status: Acute (3) Diabetes mellitus, type II Onset Date: 05/31/16 Current Visit: No Status: Chronic Qualifiers: 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 Noted mild thrombocytopenia. Patient was able to stand with PT yesterday. Continue PT Anticipating disposition to skilled rehab Postop fever Transient Likely secondary to atelectasis. Urine culture has shown no growth. Blood cultures: No growth Chest x-ray shows mild CHF. No infiltrate. Discontinue IV Levaquin Incentive spirometry. Chronic systolic heart failure Patient appears compensated for CHF. Vitals are stable. History of severe LV dysfunction but no active cardiac disease. Cardiology input appreciated. Echocardiogram shows EF of 40 to 45% which is significantly improvement compared to echocardiogram in 2017. Continue home medications. Diabetes mellitus type 2 Insulin sliding scale for glucose management. Continue Lantus insulin and titrate. Essential hypertension Continue home antihypertensives. Acute on chronic kidney disease stage III Serum creatinine improved. Patient with significant urine output past 24 hours. Monitor closely for volume overload. Nephrology consulted. Left wrist pain X-ray of the wrist shows no fracture. Analgesics as needed. Dementia Hyperactive delirium Monitor for agitation and treat as needed with Haldol as needed DVT prophylaxis: Heparin subQ.
[2023-04-01] MEDS: MEMANTINE HCL 10 MG TABLET PO SCH (20:25)
[2023-04-02 06:46] LABS: Phosphorus 3.2 mg/dL (2.5-4.9); Potassium 4.5 mEq/L (3.5-5.1)
--- NOTE | 2023-04-02 09:51 | P.PN ---
Date of Service: 04/02/23 Subjective: Feeling a little better today compared to past few days pain tolerable with current pain regimen appetite slowly improving afebrile daughter at bedside, states this is first "more normal" day for patient ROS: 10 point ROS as noted above, otherwise negative Physical Exam: GEN: Alert, oriented x2, NAD, +Dementia HEENT: Normal conjunctiva, sclera anicteric, CV: Regular rate and rhythm (paced), no edema Pulm: Nonlabored respirations on room air, clear bilaterally ABD: soft, nontender, nondistended MSK: pain with left hip ROM Neuro: Normal speech, normal affect garcia in place; placed 03/28 Problem List: Left hip fracture s/p left hip hemiarthroplasty (03/29) Transient Postop fever Chronic systolic CHF with pacemaker in place TERRY on CKD3 IDDM2 Left wrist pain Hypertension Hyperlipidemia Chronic thrombocytopenia h/o PAD Dementia Left hip fracture s/p left hip hemiarthroplasty (03/29) Dr. Tom - Ortho is following xray pelvis (03/28): mild-mod displaced subcapital fracture left femur s/p left hip hemiarthroplasty (03/29) PRN analgesics Continue PT encourage Incentive spirometry. Anticipating disposition to SNF Transient Postop fever Likely secondary to atelectasis. urine and blood cultures without growth CXR (03/31): mild CHF. No infiltrate. received empiric levaquin x1 (03/31) now dc'd No further fever. Monitor for worsening s/s. Chronic systolic CHF with pacemaker in place h/o PAD Appears compensated for CHF. Vitals stable. Patient with pacemaker in place Cardiology consulted Echo with 48% EF, diastolic dysfunction, trace TR, left atrial enlargement CXR (03/31): mild CHF Continue home coreg, amiodarone, plavix TERRY on CKD3 Nephrology consulted continue to monitor renal function slowly improving, near baseline IDDM2 Insulin sliding scale. Continue semglee. titrate as needed Left wrist pain xray L wrist (03/29): negative for acute osseous abnormalities. +moderate degenerative changes at left thumb base PRN analgesics Hypertension Hyperlipidemia Chronic thrombocytopenia Dementia continue home meds as appropriate VTE: Lovenox Code: Full Dispo: SNF approved, Anticipate discharge tomorrow if no new / worsening problems Pending stable off antibiotics, remains afebrile
--- NOTE | 2023-04-02 20:34 | P.PN ---
Date of Service: 04/02/23 Vital Signs Temp Pulse Resp BP Pulse Ox 99.2 F 64 18 141/63 H 96 04/02/23 20:00 04/02/23 20:00 04/02/23 20:00 04/02/23 20:00 04/02/23 20:00 Medications Acetaminophen (Acetaminophen 325 Mg Tablet) 650 mg PO Q6H PRN PRN Reason: TEMP > 100' F Last Admin: 03/31/23 08:43 Dose: 650 mg Hydrocodone Bitart/Acetaminophen (Hydrocodone/Apap 5/325 Mg Tab) 1 tab PO Q6H PRN PRN Reason: Pain scale 5-7 (Moderate) Last Admin: 04/02/23 16:51 Dose: 1 tab Albuterol Sulfate (Albuterol 2.5 Mg/3 Ml Neb Isabel) 2.5 mg NEB [id number] PRN PRN Reason: SHORTNESS OF BREATH Amiodarone HCl (Amiodarone Hcl 200 Mg Tab) 200 mg PO DAILY [facility] Last Admin: 04/02/23 09:00 Dose: 200 mg Aspirin (Aspirin 325 Mg Tab) 325 mg PO BID [facility] Last Admin: 04/02/23 20:13 Dose: 325 mg Carvedilol (Carvedilol 3.125 Mg Tab) 3.125 mg PO BID 6AM 6PM [facility] Last Admin: 04/02/23 17:17 Dose: 3.125 mg Clopidogrel Bisulfate (Clopidogrel 75 Mg Tablet) 75 mg PO DAILY [facility] Last Admin: 04/02/23 09:12 Dose: 75 mg Enoxaparin Sodium (Enoxaparin 30 Mg/0.3 Ml) 30 mg SQ DAILY 5 PM [facility] Last Admin: 04/02/23 16:47 Dose: 30 mg Insulin Glargine (Insulin Glargine 100 Unit/Ml) 20 unit SQ DAILY [facility] Last Admin: 04/02/23 09:00 Dose: Not Given Insulin Human Regular (Insulin Regular (Human) 100 Unit/Ml) 0 unit SQ [facility]; Protocol Last Admin: 04/02/23 20:07 Dose: Not Given Memantine (Memantine Hcl 10 Mg Tablet) 10 mg PO BID [facility] Last Admin: 04/02/23 20:13 Dose: 10 mg Ondansetron HCl (Ondansetron 4 Mg/2 Ml Vial) 4 mg IV Q6H PRN PRN Reason: NAUSEA / VOMITING Pantoprazole Sodium (Pantoprazole 40mg Tablet) 40 mg PO DAILYAC [facility] Last Admin: 04/02/23 05:54 Dose: 40 mg Rosuvastatin Calcium (Rosuvastatin 10 Mg Tab) 20 mg PO BEDTIME [facility] Last Admin: 04/02/23 20:13 Dose: 20 mg Assessment/ Plan: Nephrology No dyspnea No chest pain Feeling better with improved mental status No acute events overnight Vitals, medications, blood work and imaging reviewed in the chart General: In no apparent distress, Cooperative HEENT: Atraumatic Neck: Supple Respiratory: Normal air movement Cardiovascular: No edema, Regular rate/rhythm Gastrointestinal: Non-distended Musculoskeletal: No clubbing, No contractures Integumentary: No rashes, No cyanosis Neurological: Normal speech Urinary: Forrest catheter Blood work reviewed in the chart Imagings Data: EXAM DESCRIPTION: RAD - Chest Single View - 03/31/2023 10:09 am CLINICAL HISTORY: post-op fever Chest pain. COMPARISON: Chest Single View dated 03/28/2023; Chest Single View dated 12/23/2022; Chest Single View dated 11/30/2022; Chest Single View dated 03/09/2022 FINDINGS: Portable technique limits examination quality. Mild pulmonary edema. The heart is mildly enlarged. Single lead pacer/defibrillator device. IMPRESSION: Mild CHF. EXAM DESCRIPTION: CT - Head C Spine Cap Wo Con - 03/28/2023 2:06 pm CLINICAL HISTORY: Trauma, head and neck injury. Chest, abdomen and pelvis pain. PAIN COMPARISON: No comparisons TECHNIQUE: CT head without contrast. CT cervical spine without contrast with coronal and sagittal reformatted images. CT chest, abdomen and pelvis with coronal and sagittal reformatted images of the spine. All CT scans are performed using dose optimization technique as appropriate and may include automated exposure control or mA/KV adjustment according to patient size. FINDINGS: CT HEAD WITHOUT CONTRAST: No intracranial hemorrhage, hydrocephalus or extra-axial fluid collection. No acute large vascular territory infarct. The paranasal sinuses and mastoids are clear. The calvarium is intact. CT CERVICAL SPINE WITHOUT CONTRAST: No fracture or subluxation. The prevertebral soft tissues are normal in thickness.Multilevel degenerative changes are present in the spine. Multilevel cervical spondylosis with varying degrees of neural foraminal narrowing. 2 millimeters anterolisthesis of C5 on C6 and C6 on C7 noted. This is likely related to underlying degenerative changes. There is a least moderate central spinal stenosis at C4-5. MRI could further assess these findings. CT CHEST, ABDOMEN, PELVIS: Thorax: Chest Wall: No abnormal mass left upper chest wall pacemaker. Lungs: No acute abnormality. Pleura: No effusions or pneumothorax. Karissa/Mediastinum: No lymphadenopathy. Aorta/Pulmonary Arteries: Unremarkable Heart: Normal size. Abdomen/Pelvis: Liver: No acute abnormality or suspicious lesions. Biliary: No biliary ductal dilatation. Stomach: No significant focal abnormality. Duodenum: No significant focal abnormality. Pancreas: No significant abnormality. Spleen: No significant abnormality. Adrenal: No suspicious lesions. Kidney/ureter: No hydronephrosis. No renal calculi. Retroperitoneum: No retroperitoneal adenopathy. Vascular: No aneurysm. Bowel: No significant focal abnormality. Peritoneum: No ascites or free air. Bladder: Grossly unremarkable. Reproductive: Hysterectomy. Bones: Mildly displaced angulated left subcapital femoral neck fracture. No other fractures identified. Multilevel degenerative changes are present in the spine. Grade 1 anterolisthesis of L4 on L5. Other: n/a IMPRESSION: 1. No acute intracranial abnormality. 2. No acute fracture or traumatic malalignment of the cervical spine. 3. Mildly displaced and angulated left subcapital femoral neck fracture. No other evidence of significant trauma to the chest, abdomen, or pelvis. LEFT VENTRICULAR WALL MOTION: 1. MODERATE GLOBAL HYPOKINESIS 2. SEPTAL WALL MOTION AKINESIS WITH CONDUCTION DELAY DOPPLER/COLOR FLOW: DIASTOLIC DYSFUNCTION. COMMENTS: 1. MODERATE REDUCED LEFT VENTRICULAR FUNCTION, EJECTION FRACTION 40- 45%, MODERATE GLOBAL HYPOKINESIS. 2. DIASTOLIC DYSFUNCTION 3. RIGHT VENTRICULAR PACEMAKER LEAD SEEN 4. TRACE OF TRICUSPID REGURGITATION, INSUFFICIENT TO ESTIMATED RIGHT VENTRICULAR SYSTOLIC PRESSRE 5. LEFT ATRIAL ENLARGEMENT. Conclusions/Impression: Stage I TERRY likely due to hypovolemia CKD III with Proteinuria -No NSAIDs HTN with CKD/ CHF -Continue Coreg Systolic Diastolic CHF, chronic -Daily weight -Low sodium diet DM II with CKD -Continue Lantus -RISS Anemia in chronic illness -Monitor H&H Hospitalist note reviewed Case reviewed with Dr. Baig
[2023-04-03 07:06] LABS: Magnesium 2.3 mg/dL (1.6-2.4); Potassium 4.5 mEq/L (3.5-5.1)
[2023-04-03 08:21] VITALS: BP 140/64
--- NOTE | 2023-04-03 08:54 | P.DS ---
Admission Date: 03/28/23 Discharge Date: 04/03/23 Disposition: TRANSFER TO SNF - REHAB Discharge Condition: FAIR Reason for Admission: Left femur fracture Consultations: Cardiology - Dr. Garza Ortho - Dr. Arizmendi Nephrology - Dr. Obando Brief History of Present Illness: 77yo F, PMH: diabetes, chronic systolic heart failure with severely depressed LV function status post AICD Patient was brought to the emergency department because patient fell and could not get up. According to the family patient reported she tripped and fell while sleeping her garage. Images done in the emergency department demonstrated subcapital fracture of the left femur. Patient could not provide history because of dementia. Orthopedic surgeon Dr. Arizmendi informed, patient is hospitalized for further management. Hospital Course: Problem List: Left hip fracture s/p left hip hemiarthroplasty (03/29) Transient Postop fever, resolved Chronic systolic CHF with pacemaker in place TERRY on CKD3, improved IDDM2 Left wrist pain Hypertension Hyperlipidemia Chronic thrombocytopenia h/o PAD Dementia Patient presented do ED after a fall. She was found to have a subcapital fracture of left femur seen on xray imaging. Ortho was consulted. Patient was taken to the OR on 03/[address] Arizmendi for left hip hemiarthroplasty. Patient was noted to brief transient post-op fever. Blood cultures were without growth. CXR demonstrated mild CHF pattern without evidence of acute infiltrate. She received 1 dose of empiric levaquin as a precaution to cover possible infectious process. Evaluation /workup did not reveal any infectous source, she was monitored for ~48hrs off antibiotics and remained afebrile for the rest of her hospitalization. Suspect fever was secondary to atelectasis. Patient was feeling better, afebrile > 48 hours, and was deemed stable to [facility] - where she can continue to improve her strength / endurance to return to prior level of function before returning home. She received DVT prophylaxis with heparin SQ and switched to levaquin during hospitalization, in addition to aspirin 325mg twice daily and her home dose of plavix. She will continue on aspirin 325mg twice daily per ortho for DVT prophylaxis. Patient presented with TERRY on CKD3, secondary to hypovolemia. Serum creatinine was noted to be 2.07 on admission and improved to ~baseline. Nephrology was consulted. Suspect TERRY secondary to hypovolemia. Advised to repeat blood work in ~1 week to monitor renal function. Creatinine on discharge: 1.70 and appeared euvolemic. Home regimen of Entresto and lasix was held during hospitalization secondary to renal function and low blood pressure. Blood pressure improved through hospitalization as well as renal function. Recommended to continue monitoring blood pressure and follow-up with PCP / Nephrology to discuss restarting these medications in near future. Medications: [place] 5/325 Aspirin 325 mg twice a day (for 1 month) then deescalate to baby aspirin 81 mg Hold Entresto and Lasix until follow up or if fluid retention develops. (listed as continued on home discharge med rec to not remove from list, since they are temporarily held, and anticipate restarting in near future). Continue other home meds not listed as previously prescribed. Follow up: PCP 3-5 days Ortho (Dr. Arizmendi) ~2 weeks Nephrology 2-4 weeks Physical Exam: GEN: Alert, oriented x2, NAD, +Dementia HEENT: Normal conjunctiva, sclera anicteric, CV: Regular rate and rhythm (paced), no edema Pulm: Nonlabored respirations on room air, clear bilaterally ABD: soft, nontender, nondistended MSK: pain with left hip ROM Neuro: Normal speech, normal affect Vital Signs/Physical Exam: Temp Pulse Resp BP Pulse Ox 97.7 F 67 15 140/64 97 04/03/23 08:00 04/03/23 08:00 04/03/23 08:00 04/03/23 08:00 04/03/23 08:00 Laboratory Data at Discharge: WBC 8.40 thou/uL (4.3-10.9) 04/01/23 06:14 Hgb 10.0 g/dL (12.0-15.0) L D 04/01/23 06:14 Hct 29.7 % (36.0-45.0) L 04/01/23 06:14 Plt Count 84 thou/uL (152-406) L 04/01/23 06:14 PT 13.0 SECONDS (9.5-12.5) H 03/28/23 14:47 INR 1.19 03/28/23 14:47 Sodium 138 mEq/L (136-145) 04/03/23 06:20 Potassium 4.5 mEq/L (3.5-5.1) 04/03/23 06:20 BUN 30 mg/dL (7-18) H 04/03/23 06:20 Creatinine 1.70 mg/dL (0.55-1.02) H 04/03/23 06:20 Glucose 133 mg/dL (74-106) H 04/03/23 06:20 Uric Acid 6.3 mg/dL (2.6-6.0) H 04/01/23 06:14 Phosphorus 3.2 mg/dL (2.5-4.9) 04/02/23 06:04 Magnesium 2.3 mg/dL (1.6-2.4) 04/03/23 06:20 Total Bilirubin 0.3 mg/dL (0.2-1.0) 03/28/23 14:47 AST 15 U/L (15-37) 03/28/23 14:47 ALT 25 U/L (13-56) 03/28/23 14:47 Alkaline Phosphatase 105 U/L (45-117) 03/28/23 14:47 Home Medications: Amiodarone HCl [Cordarone*] 1 tab PO DAILY 05/30/17 Furosemide 1 tab PO DAILY 05/30/17 Insulin Glargine,Hum.rec.anlog [Lantus] 20 unit SQ DAILYPRN PRN 05/30/17 Sacubitril/Valsartan [Entresto 24 mg-26 mg Tablet] 1 tab PO DAILY 05/30/17 carvediloL [Carvedilol] 1 tab PO BID 05/30/17 Clopidogrel Bisulfate [Plavix*] 75 mg PO DAILY 08/25/21 Memantine HCl [Namenda] 10 mg PO DAILY 08/25/21 Rosuvastatin Calcium [Crestor] 20 mg PO DAILY 08/25/21 Tramadol HCl [Ultram] 50 mg PO BID PRN 08/25/21 Omeprazole 20 mg PO DAILY 12/23/22 Aspirin Tab [Dion Aspirin*] 325 mg PO BID tab 04/03/23 Hydrocodone 5/APAP 325 [[place] 5/325*] 1 tab PO Q6H PRN tab 04/03/23 Physician Discharge Instructions: Patient presented do ED after a fall. She was found to have a subcapital fracture of left femur seen on xray imaging. Ortho was consulted. Patient was taken to the OR on 03/[address] Arizmendi for left hip hemiarthroplasty. Patient was noted to brief transient post-op fever. Blood cultures were without growth. CXR demonstrated mild CHF pattern without evidence of acute infiltrate. She received 1 dose of empiric levaquin as a precaution to cover possible infectious process. Evaluation /workup did not reveal any infectous source, she was monitored for ~48hrs off antibiotics and remained afebrile for the rest of her hospitalization. Suspect fever was secondary to atelectasis. Patient was feeling better, afebrile > 48 hours, and was deemed stable to [facility] - where she can continue to improve her strength / endurance to return to prior level of function before returning home. She received DVT prophylaxis with heparin SQ and switched to levaquin during hospitalization, in addition to aspirin 325mg twice daily and her home dose of plavix. She will continue on aspirin 325mg twice daily per ortho for DVT prophylaxis. Patient presented with TERRY on CKD3, secondary to hypovolemia. Serum creatinine was noted to be 2.07 on admission and improved to ~baseline. Nephrology was consulted. Suspect TERRY secondary to hypovolemia. Advised to repeat blood work in ~1 week to monitor renal function. Creatinine on discharge: 1.70 and appeared euvolemic. Home regimen of Entresto and lasix was held during hospitalization secondary to renal function and low blood pressure. Blood pressure improved through hospitalization as well as renal function. Recommended to continue monitoring blood pressure and follow-up with PCP / Nephrology to discuss restarting these medications in near future. Medications: [place] 5/325 Aspirin 325 mg twice a day (for 1 month) then deescalate to baby aspirin 81 mg Hold Entresto and Lasix until follow up or if fluid retention develops. (listed as continued on home discharge med rec to not remove from list, since they are temporarily held, and anticipate restarting in near future). Continue other home meds not listed as previously prescribed. Follow up: PCP 3-5 days Ortho (Dr. Arizmendi) ~2 weeks Nephrology 2-4 weeks Followup: Moshe Obando DO [ACTIVE - CAN ADMIT] - (F/U in 2-4 weeks) Griselda Yao MD [Primary Care Provider] - (F/U in 3-5 days) Ivan Arizmendi MD [ACTIVE - CAN ADMIT] - (F/U in 2 weeks) Time spent managing pt's care (in minutes): 45
--- NOTE | 2023-04-03 09:57 | P.PN ---
Date of Service: 04/03/23 Vital Signs Temp Pulse Resp BP Pulse Ox 97.7 F 67 15 140/64 97 04/03/23 08:00 04/03/23 08:00 04/03/23 08:00 04/03/23 08:00 04/03/23 08:00 Medications Acetaminophen (Acetaminophen 325 Mg Tablet) 650 mg PO Q6H PRN PRN Reason: TEMP > 100' F Last Admin: 03/31/23 08:43 Dose: 650 mg Hydrocodone Bitart/Acetaminophen (Hydrocodone/Apap 5/325 Mg Tab) 1 tab PO Q6H PRN PRN Reason: Pain scale 5-7 (Moderate) Last Admin: 04/03/23 05:08 Dose: 1 tab Albuterol Sulfate (Albuterol 2.5 Mg/3 Ml Neb Isabel) 2.5 mg NEB [id number] PRN PRN Reason: SHORTNESS OF BREATH Amiodarone HCl (Amiodarone Hcl 200 Mg Tab) 200 mg PO DAILY [facility] Last Admin: 04/03/23 08:33 Dose: 200 mg Aspirin (Aspirin 325 Mg Tab) 325 mg PO BID [facility] Last Admin: 04/03/23 08:33 Dose: 325 mg Carvedilol (Carvedilol 3.125 Mg Tab) 3.125 mg PO BID 6AM 6PM [facility] Last Admin: 04/03/23 05:08 Dose: 3.125 mg Clopidogrel Bisulfate (Clopidogrel 75 Mg Tablet) 75 mg PO DAILY [facility] Last Admin: 04/03/23 08:33 Dose: 75 mg Enoxaparin Sodium (Enoxaparin 30 Mg/0.3 Ml) 30 mg SQ DAILY 5 PM [facility] Last Admin: 04/02/23 16:47 Dose: 30 mg Insulin Glargine (Insulin Glargine 100 Unit/Ml) 20 unit SQ DAILY [facility] Last Admin: 04/03/23 08:32 Dose: 20 unit Insulin Human Regular (Insulin Regular (Human) 100 Unit/Ml) 0 unit SQ [facility]; Protocol Last Admin: 04/03/23 07:30 Dose: Not Given Memantine (Memantine Hcl 10 Mg Tablet) 10 mg PO BID [facility] Last Admin: 04/03/23 08:33 Dose: 10 mg Ondansetron HCl (Ondansetron 4 Mg/2 Ml Vial) 4 mg IV Q6H PRN PRN Reason: NAUSEA / VOMITING Pantoprazole Sodium (Pantoprazole 40mg Tablet) 40 mg PO DAILYAC [facility] Last Admin: 04/03/23 05:08 Dose: 40 mg Rosuvastatin Calcium (Rosuvastatin 10 Mg Tab) 20 mg PO BEDTIME [facility] Last Admin: 04/02/23 20:13 Dose: 20 mg Assessment/ Plan: Nephrology No dyspnea No chest pain No acute events overnight Vitals, medications, blood work and imaging reviewed in the chart General: In no apparent distress, Cooperative HEENT: Atraumatic Neck: Supple Respiratory: Normal air movement Cardiovascular: No edema, Regular rate/rhythm Gastrointestinal: Non-distended Musculoskeletal: No clubbing, No contractures Integumentary: No rashes, No cyanosis Neurological: Normal speech Urinary: Forrest catheter Blood work reviewed in the chart Imagings Data: EXAM DESCRIPTION: RAD - Chest Single View - 03/31/2023 10:09 am CLINICAL HISTORY: post-op fever Chest pain. COMPARISON: Chest Single View dated 03/28/2023; Chest Single View dated 12/23/2022; Chest Single View dated 11/30/2022; Chest Single View dated 03/09/2022 FINDINGS: Portable technique limits examination quality. Mild pulmonary edema. The heart is mildly enlarged. Single lead pacer/defibrillator device. IMPRESSION: Mild CHF. EXAM DESCRIPTION: CT - Head C Spine Cap Wo Con - 03/28/2023 2:06 pm CLINICAL HISTORY: Trauma, head and neck injury. Chest, abdomen and pelvis pain. PAIN COMPARISON: No comparisons TECHNIQUE: CT head without contrast. CT cervical spine without contrast with coronal and sagittal reformatted images. CT chest, abdomen and pelvis with coronal and sagittal reformatted images of the spine. All CT scans are performed using dose optimization technique as appropriate and may include automated exposure control or mA/KV adjustment according to patient size. FINDINGS: CT HEAD WITHOUT CONTRAST: No intracranial hemorrhage, hydrocephalus or extra-axial fluid collection. No acute large vascular territory infarct. The paranasal sinuses and mastoids are clear. The calvarium is intact. CT CERVICAL SPINE WITHOUT CONTRAST: No fracture or subluxation. The prevertebral soft tissues are normal in thickness.Multilevel degenerative changes are present in the spine. Multilevel cervical spondylosis with varying degrees of neural foraminal narrowing. 2 millimeters anterolisthesis of C5 on C6 and C6 on C7 noted. This is likely related to underlying degenerative changes. There is a least moderate central spinal stenosis at C4-5. MRI could further assess these findings. CT CHEST, ABDOMEN, PELVIS: Thorax: Chest Wall: No abnormal mass left upper chest wall pacemaker. Lungs: No acute abnormality. Pleura: No effusions or pneumothorax. Karissa/Mediastinum: No lymphadenopathy. Aorta/Pulmonary Arteries: Unremarkable Heart: Normal size. Abdomen/Pelvis: Liver: No acute abnormality or suspicious lesions. Biliary: No biliary ductal dilatation. Stomach: No significant focal abnormality. Duodenum: No significant focal abnormality. Pancreas: No significant abnormality. Spleen: No significant abnormality. Adrenal: No suspicious lesions. Kidney/ureter: No hydronephrosis. No renal calculi. Retroperitoneum: No retroperitoneal adenopathy. Vascular: No aneurysm. Bowel: No significant focal abnormality. Peritoneum: No ascites or free air. Bladder: Grossly unremarkable. Reproductive: Hysterectomy. Bones: Mildly displaced angulated left subcapital femoral neck fracture. No other fractures identified. Multilevel degenerative changes are present in the spine. Grade 1 anterolisthesis of L4 on L5. Other: n/a IMPRESSION: 1. No acute intracranial abnormality. 2. No acute fracture or traumatic malalignment of the cervical spine. 3. Mildly displaced and angulated left subcapital femoral neck fracture. No other evidence of significant trauma to the chest, abdomen, or pelvis. LEFT VENTRICULAR WALL MOTION: 1. MODERATE GLOBAL HYPOKINESIS 2. SEPTAL WALL MOTION AKINESIS WITH CONDUCTION DELAY DOPPLER/COLOR FLOW: DIASTOLIC DYSFUNCTION. COMMENTS: 1. MODERATE REDUCED LEFT VENTRICULAR FUNCTION, EJECTION FRACTION 40- 45%, MODERATE GLOBAL HYPOKINESIS. 2. DIASTOLIC DYSFUNCTION 3. RIGHT VENTRICULAR PACEMAKER LEAD SEEN 4. TRACE OF TRICUSPID REGURGITATION, INSUFFICIENT TO ESTIMATED RIGHT VENTRICULAR SYSTOLIC PRESSRE 5. LEFT ATRIAL ENLARGEMENT. Conclusions/Impression: Stage I TERRY likely due to hypovolemia CKD III with Proteinuria -No NSAIDs HTN with CKD/ CHF -Continue Coreg Systolic Diastolic CHF, chronic -Daily weight -Low sodium diet DM II with CKD -Continue Lantus -RISS Anemia in chronic illness -Monitor H&H Hospitalist note reviewed Case reviewed with Dr. Baig She follows with Dr. Gabe Soriano as an outpt
[2023-04-03 10:27] VITALS: O2SAT 97
[2023-04-03 10:58] LABS: SARS-CoV-2 Antigen Rapid Res Negative (Negative)
[2023-04-03 12:08] VITALS: TEMP 98.7
== END 2023-04-03 12:27 | DRG 522 ==
LOC: ER 13:33 → ERHOLD 17:26 → 4TH 19:29
PROVIDERS: ADMIT Internal Medicine; ATTEND Hospitalist
PROC: 0T9B70Z Drainage of Bladder with Drainage Device, Via Natural or Artificial Opening (ICD-10-PCS; 2023-03-28)
PROC: 0SRS0JZ Replacement of Left Hip Joint, Femoral Surface with Synthetic Substitute, Open Approach (ICD-10-PCS; principal; 2023-03-29 16:30)
DX: S72.012A Unspecified intracapsular fracture of left femur, initial encounter for closed fracture (principal); F03.911 Unspecified dementia, unspecified severity, with agitation; I13.0 Hypertensive heart and chronic kidney disease with heart failure and stage 1 through stage 4 chronic kidney disease, or unspecified chronic kidney disease; I50.22 Chronic systolic (congestive) heart failure; J98.11 Atelectasis; N17.9 Acute kidney failure, unspecified; F05 Delirium due to known physiological condition; N18.30 Chronic kidney disease, stage 3 unspecified; E11.22 Type 2 diabetes mellitus with diabetic chronic kidney disease; E78.5 Hyperlipidemia, unspecified; E11.51 Type 2 diabetes mellitus with diabetic peripheral angiopathy without gangrene; D63.1 Anemia in chronic kidney disease; D69.6 Thrombocytopenia, unspecified; M25.532 Pain in left wrist; R50.82 Postprocedural fever; Z88.0 Allergy status to penicillin; Z79.4 Long term (current) use of insulin; Z79.82 Long term (current) use of aspirin; Z79.02 Long term (current) use of antithrombotics/antiplatelets; Z95.810 Presence of automatic (implantable) cardiac defibrillator; Z79.899 Other long term (current) drug therapy; Z90.710 Acquired absence of both cervix and uterus; W01.0XXA Fall on same level from slipping, tripping and stumbling without subsequent striking against object, initial encounter; Y92.015 Private garage of single-family (private) house as the place of occurrence of the external cause; Y93.89 Activity, other specified; Y99.9 Unspecified external cause status
CPT/HCPCS: 31720; 36415; 70450; 71045; 71250; 72125; 72170; 80048; 80069; 80076; 81001; 82043; 82570; 82947; 83735; 83880; 84100; 84156; 84484; 84550; 85025; 85610; 86850; 86900; 86901; 87040; 87811; 88304; 88305; 88311; 93005; 93306; 94010; 94760; 96374; 96375; 97110; 97161; 97530; 99285; A4216; J0690; J1170; J1644; J1650; J1815; J2001; J2371; J2405; J2704; J3010; J7030; J7042

== ENCOUNTER 2023-04-14 10:46 | Inpatient (IN) | payer OTHER ==
[2023-04-14] MEDS ORDERED: NA CHLORIDE 0.9% 500 ML ONE (11:02)
[2023-04-14] MEDS ORDERED: NA CHLORIDE 0.9% 1,000 ML ONE ×2 (11:02→14:24)
[2023-04-14 11:37] LABS: Hematocrit 31.7 % (36.0-45.0); Lymphocytes % 15.1 % (15.3-44.8); MCV 92.1 fL (80-100); MPV 9.5 fL (7.6-11.3); Platelets 247 thou/uL (152-406); RBC Red Blood Cell Count 3.44 M/uL (3.86-4.86)
[2023-04-14 11:41] LABS: Protime INR 1.28
[2023-04-14 11:44] LABS: Specific Gravity 1.008 (1.005-1.030); Urine Bilirubin NEGATIVE (Negative); Urine Blood Negative (Negative); Urine Clarity Clear (Clear); Urine Color Colorless (Yellow); Urine Glucose NEGATIVE (Negative); Urine Protein NEGATIVE (Negative); Urine Urobilinogen Normal (Normal)
[2023-04-14 12:04] LABS: ALT/SGPT 30 U/L (13-56); AST/SGOT 27 U/L (15-37); Albumin 2.7 g/dL (3.4-5.0); Alkaline Phosphatase 120 U/L (45-117); BUN Blood Urea Nitrogen 38 mg/dL (7-18); Bicarbonate 25 mEq/L (21-32); Bilirubin Total 0.2 mg/dL (0.2-1.0); Glomerular Filtration Rate 18 ml/min (=/>90); Glucose Level 123 mg/dL (74-106); Lipase 21 U/L (13-75); Magnesium 2.3 mg/dL (1.6-2.4); NT PRO-BNP 989 pg/mL (<450); Phosphorus 4.1 mg/dL (2.5-4.9); Protein, Total 6.4 g/dL (6.4-8.2); Sodium Level 144 mEq/L (136-145); Troponin High Sensitivity 25.6 pg/mL (<58.9); Uric Acid 11.7 mg/dL (2.6-6.0)
[2023-04-14 12:05] LABS: Bilirubin Direct < 0.1 mg/dL (0-0.2); Bilirubin Indirect, Calculated ND mg/dL (0.2-0.8)
--- NOTE | 2023-04-14 12:10 | EDPHYS ---
Physician Documentation [facility] Name: Sangita Hendrix Age: 77 yrs Sex: Female : 1945 Arrival Date: 04/14/2023 Time: 10:46 Bed 17 Private MD: ED Physician Sukumar Correa HPI: 04/14 12:03 This 77 yrs old Black Female presents to ER via EMS with complaints of Abnormal Lab ranjan Results. 12:03 INCREASED RENAL FUNCTION. Onset: The symptoms/episode began/occurred 2 day(s) ago. ranjan Severity of symptoms: At their worst the symptoms were mild in the emergency department the symptoms are unchanged. The patient has experienced similar episodes in the past, a few times. Historical: - Allergies: 10:56 PENICILLINS; kc6 - PMHx: 10:56 BRADYCARDIA; CHF; Dementia; Diabetes - IDDM; GERD; Gout; hiatal hernia; Pacemaker; kc6 - PSHx: 10:56 Cholecystectomy; hysterectomy; hysterectomy; kc6 - Immunization history:: Adult Immunizations up to date. - Social history:: Smoking status: Patient denies any tobacco usage or history of. ROS: 12:04 Constitutional: Negative for fever, chills, and weight loss, Eyes: Negative for injury, ranjan pain, redness, and discharge, ENT: Negative for injury, pain, and discharge, Neck: Negative for injury, pain, and swelling, Cardiovascular: Negative for chest pain, palpitations, and edema, Respiratory: Negative for shortness of breath, cough, wheezing, and pleuritic chest pain, Abdomen/GI: Negative for abdominal pain, nausea, vomiting, diarrhea, and constipation, Back: Negative for injury and pain, : Negative for injury, bleeding, discharge, and swelling, MS/Extremity: Negative for injury and deformity, Skin: Negative for injury, rash, and discoloration, Psych: Negative for depression, anxiety, suicide ideation, homicidal ideation, and hallucinations, Allergy/Immunology: Negative for hives, rash, and allergies, Endocrine: Negative for neck swelling, polydipsia, polyuria, polyphagia, and marked weight changes, Hematologic/Lymphatic: Negative for swollen nodes, abnormal bleeding, and unusual bruising, 12:04 Neuro: Positive for weakness, Exam: 12:04 Constitutional: This is a well developed, well nourished patient who is awake, alert, ranjan and in no acute distress. Head/Face: Normocephalic, atraumatic. Eyes: Pupils equal round and reactive to light, extra-ocular motions intact. Lids and lashes normal. Conjunctiva and sclera are non-icteric and not injected. Cornea within normal limits. Periorbital areas with no swelling, redness, or edema. ENT: Nares patent. No nasal discharge, no septal abnormalities noted. Tympanic membranes are normal and external auditory canals are clear. Oropharynx with no redness, swelling, or masses, exudates, or evidence of obstruction, uvula midline. Mucous membranes moist. Neck: Trachea midline, no thyromegaly or masses palpated, and no cervical lymphadenopathy. Supple, full range of motion without nuchal rigidity, or vertebral point tenderness. No Meningismus. Chest/axilla: Normal chest wall appearance and motion. Nontender with no deformity. No lesions are appreciated. Cardiovascular: Regular rate and rhythm with a normal S1 and S2. No gallops, murmurs, or rubs. Normal PMI, no JVD. No pulse deficits. Respiratory: Lungs have equal breath sounds bilaterally, clear to auscultation and percussion. No rales, rhonchi or wheezes noted. No increased work of breathing, no retractions or nasal flaring. Abdomen/GI: Soft, non-tender, with normal bowel sounds. No distension or tympany. No guarding or rebound. No evidence of tenderness throughout. Back: No spinal tenderness. No costovertebral tenderness. Full range of motion. Skin: Warm, dry with normal turgor. Normal color with no rashes, no lesions, and no evidence of cellulitis. MS/ Extremity: Pulses equal, no cyanosis. Neurovascular intact. Full, normal range of motion. Neuro: Awake and alert, GCS 15, oriented to person, place, time, and situation. Cranial nerves II-XII grossly intact. Motor strength 5/5 in all extremities. Sensory grossly intact. Cerebellar exam normal. Normal gait. Psych: Awake, alert, with orientation to person, place and time. Behavior, mood, and affect are within normal limits. 12:04 ECG was reviewed by the Attending Physician. Vital Signs: 10:54 BP 154 / 52; Pulse 56; Resp 18 S; Pulse Ox 96% on R/A; Weight 98.88 kg (R); Height 5 [facility] ft. 4 in. (R); 11:50 BP 150 / 45; Pulse 59; Resp 16 S; Pulse Ox 96% on R/A; kc6 12:13 BP 150 / 50; kc6 14:18 BP 141 / 80; Pulse 59; Resp 16 S; Pulse Ox 99% on R/A; kc6 10:54 Body Mass Index 37.42 (98.88 kg, 162.56 cm) [facility] MDM: 10:56 Patient medically screened. [facility] 12:05 Differential Diagnosis altered mental status, sepsis, flu. Data reviewed: vital signs, [facility] nurses notes, EMS record, lab test result(s), EKG, radiologic studies, CT scan, plain films. Consideration of Admission/Observation Patient was admitted/placed on observation. Escalation of care including admission/observation considered. I considered the following discharge prescriptions or medication management in the emergency department Medications were administered in the Emergency Department. See MAR. Independent interpretation of the following test(s) in the Emergency Department EKG: See my EKG interpretation above. Test considered but Not performed: Ultrasound NO RENAL USG. Historians other than the Patient: Family Member: MULTIPLE FAMILY MEMBERS. External Records Reviewed: Outpatient record: [place] [facility]. Outpatient labs: SEE ENCLOSED. Care significantly affected by the following chronic conditions: Diabetes, Hypertension, Congestive Heart Failure, Obesity, Chronic Kidney Disease. Counseling: I had a detailed discussion with the patient and/or guardian regarding the historical points, exam findings, and any diagnostic results supporting the discharge/admit diagnosis, lab results, radiology results, the need for further work-up and treatment in the hospital. 04/14 10:55 Order name: Basic Metabolic Panel; Complete Time: 14:29 [facility] 04/14 10:55 Order name: CBC with Diff; Complete Time: 11:59 04/14 10:55 Order name: LFT's; Complete Time: 14:29 04/14 10:55 Order name: Magnesium; Complete Time: 14:29 04/14 10:55 Order name: NT PRO-BNP; Complete Time: 14:29 04/14 10:55 Order name: PT-INR; Complete Time: 11:59 04/14 10:55 Order name: Troponin HS; Complete Time: 14:29 04/14 10:55 Order name: Lipase; Complete Time: 14:29 [facility] 04/14 10:55 Order name: Urinalysis w/ reflexes; Complete Time: 11:59 [facility] 04/14 10:56 Order name: Uric Acid; Complete Time: 14:29 [facility] 04/14 10:56 Order name: Urine Creatinine; Complete Time: 11:59 [facility] 04/14 10:56 Order name: Phosphorus; Complete Time: 14:29 [facility] 04/14 12:10 Order name: LAB Add On eb 04/14 12:15 Order name: Creatine Phosphokinase; Complete Time: 14:29 [facility] 04/14 12:26 Order name: Ammonia [facility] 04/14 12:31 Order name: CBC with Automated Diff [facility] 04/14 12:31 Order name: CBC with Automated Diff [facility] 04/14 12:31 Order name: Comprehensive Metabolic Panel [facility] 04/14 12:31 Order name: Comprehensive Metabolic Panel [facility] 04/14 12:31 Order name: Protime (+INR) [facility] 04/14 12:31 Order name: Protime (+INR) [facility] 04/14 12:31 Order name: PTT, Activated Partial Thromb [facility] 04/14 12:31 Order name: PTT, Activated Partial Thromb [facility] 04/14 12:31 Order name: Ammonia [facility] 04/14 17:10 Order name: Transferrin Sat/Iron Binding [facility] 04/14 17:10 Order name: Ferritin [facility] 04/14 17:22 Order name: Vitamin D, 25 ([place]), TOTAL [facility] 04/14 17:34 Order name: PTH Intact [facility] 04/14 10:55 Order name: XRAY Chest (1 view); Complete Time: 14:29 [facility] 04/14 10:56 Order name: CT Stone Protocol; Complete Time: 14:29 [facility] 04/14 12:31 Order name: Renal Ultrasound-Complete [facility] 04/14 12:31 Order name: Renal Ultrasound-Complete [facility] 04/14 14:08 Order name: US; Complete Time: 14:29 [facility] 04/14 10:55 Order name: EKG; Complete Time: 10:56 [facility] 04/14 12:31 Order name: CONS Physician Consult [facility] 04/14 10:55 Order name: Cardiac monitoring; Complete Time: 11:30 [facility] 04/14 10:55 Order name: EKG - Nurse/Tech; Complete Time: 11:30 [facility] 04/14 10:55 Order name: IV Saline Lock; Complete Time: 11:30 ranjan 04/14 10:55 Order name: Labs collected and sent; Complete Time: 11: ranjan 04/14 10:55 Order name: O2 Per Protocol; Complete Time: ranjan 04/14 10:55 Order name: O2 Sat Monitoring; Complete Time: : ranjan EC:04 Rate is 59 beats/min. Rhythm is regular. QRS [facility] is Normal. FL interval is prolonged ranjan at 230 msec. QT interval is normal. No Q waves. T waves are Normal. No ST changes noted. Clinical impression: NSR w/ Non-specific ST/T Changes and No evidence of ischemia. Interpreted by me. Reviewed by me. Administered Medications: 11:50 Drug: NS 0.9% IV 500 ml IV at bolus once Route: IV; Rate: bolus; Site: left antecubital;kc6 11:50 Drug: NS 0.9% IV 1000 ml IV at 125 ml/hr continuous Route: IV; Rate: 125 ml/hr; Site: kc6 left antecubital; Disposition Summary: 04/14/23 12:10 Hospitalization Ordered Notes: Hospitalization Status: Inpatient Admission ranjan Location: Telemetry/MedSurg (Inpatient) ranjan Condition: Fair ranjan Problem: new ranjan Symptoms: have improved ranjan Bed/Room Type: Standard ranjan Provider: Terry Blank(04/14/23 12:12) ranjan Room Assignment: [facility](04/14/23 17:18) sp Diagnosis - Acute kidney failure, unspecified - ON CHRONIC ranjan - Weakness rnajan Forms: - Medication Reconciliation Form ranjan - SBAR form ranjan - Leadership Thank You Letter ranjan Signatures: Dispatcher [employer] Sukumar Velez MD MD cha Pinkerton, Shawna sp Campbell, Kaitlyn, RN RN kc6 Corrections: (The following items were deleted from the chart) 12:12 12:10 Eliel Underwood cha ranjan 17:18 12:10 ranjan sp
--- NOTE | 2023-04-14 12:10 | ER ---
Nurse's Notes [facility] Name: Sangita Hendrix Age: 77 yrs Sex: Female : 1945 Arrival Date: 04/14/2023 Time: 10:46 Bed 17 Private MD: Diagnosis: Acute kidney failure, unspecified-ON CHRONIC;Weakness Presentation: 04/14 10:54 Chief complaint: EMS states: pt is from [facility] and they were toned out for kc6 abnormal kidney function on her lab results. pt denies any urinary symptoms. Coronavirus screen: At this time, the client does not indicate any symptoms associated with coronavirus-19. Ebola Screen: No symptoms or risks identified at this time. Initial Sepsis Screen: Does the patient meet any 2 criteria? No. Patient's initial sepsis screen is negative. Does the patient have a suspected source of infection? No. Patient's initial sepsis screen is negative. Risk Assessment: Do you want to hurt yourself or someone else? Patient reports no desire to harm self or others. Onset of symptoms was April 14, 2023. 10:54 Method Of Arrival: EMS: [facility] 10:54 Acuity: MADISYN 3 kc6 Triage Assessment: 10:56 General: Appears in no apparent distress. comfortable, well groomed, well developed, kc6 Behavior is calm, cooperative, appropriate for age. EENT: No signs and/or symptoms were reported regarding the EENT system. Neuro: Level of Consciousness is awake, alert, obeys commands, Oriented to person, place, Appropriate for age. Cardiovascular: Capillary refill < 3 seconds. Respiratory: Airway is patent Trachea midline Respiratory effort is even, unlabored, Respiratory pattern is regular, symmetrical. GI: No signs and/or symptoms were reported involving the gastrointestinal system. : No signs and/or symptoms were reported regarding the genitourinary system. Derm: No signs and/or symptoms reported regarding the dermatologic system. Skin is intact, is healthy with good turgor, Skin is pink, warm \T\ dry. Musculoskeletal: No signs and/or symptoms reported regarding the musculoskeletal system. Circulation, motion, and sensation intact. Capillary refill < 3 seconds, Range of motion: intact in all extremities. Historical: - Allergies: 10:56 PENICILLINS; kc6 - PMHx: 10:56 BRADYCARDIA; CHF; Dementia; Diabetes - IDDM; GERD; Gout; hiatal hernia; Pacemaker; kc6 - PSHx: 10:56 Cholecystectomy; hysterectomy; hysterectomy; kc6 - Immunization history:: Adult Immunizations up to date. - Social history:: Smoking status: Patient denies any tobacco usage or history of. Screenin:57 [facility] ED Fall Risk Assessment (Adult) History of falling in the last 3 months, kc6 including since admission Yes- single mechanical fall (1 pt) Confusion or Disorientation Yes (5 pts) Intoxicated or Sedated No (0 pts) Impaired Gait Yes (1 pt) Mobility Assist Device Used Yes (1 pt) Altered Elimination Yes (1 pt) Score/Fall Risk Level 3 or more points = High Risk. Abuse screen: Denies threats or abuse. Denies injuries from another. Nutritional screening: No deficits noted. Tuberculosis screening: No symptoms or risk factors identified. Assessment: 10:57 Reassessment: please see triage. kc6 11:50 Reassessment: Patient appears in no apparent distress at this time. No changes from kc6 previously documented assessment. Patient and/or family updated on plan of care and expected duration. Pain level reassessed. 12:50 Reassessment: Patient appears in no apparent distress at this time. No changes from kc6 previously documented assessment. Patient and/or family updated on plan of care and expected duration. Pain level reassessed. 13:50 Reassessment: Patient appears in no apparent distress at this time. No changes from kc6 previously documented assessment. Patient and/or family updated on plan of care and expected duration. Pain level reassessed. 14:18 Reassessment: Patient appears in no apparent distress at this time. No changes from kc6 previously documented assessment. Patient and/or family updated on plan of care and expected duration. Pain level reassessed. please see [facility] for further charting. 17:23 Reassessment: attempted to call report to 2nd floor. nurse michael will print the sbar kc6 and call me back. Vital Signs: 10:54 BP 154 / 52; Pulse 56; Resp 18 S; Pulse Ox 96% on R/A; Weight 98.88 kg (R); Height 5 kc6 ft. 4 in. (R); 11:50 BP 150 / 45; Pulse 59; Resp 16 S; Pulse Ox 96% on R/A; kc6 12:13 BP 150 / 50; kc6 14:18 BP 141 / 80; Pulse 59; Resp 16 S; Pulse Ox 99% on R/A; kc6 10:54 Body Mass Index 37.42 (98.88 kg, 162.56 cm) kc6 ED Course: 10:54 Patient arrived in ED. eb 10:54 Jamilah Davis RN is Primary Nurse. kc6 10:54 Sukumar Correa MD is Attending Physician. ranjan 10:56 Triage completed. kc6 10:56 Arm band placed on. kc6 10:57 Patient maintains SpO2 saturation greater than 95% on room air. kc6 10:58 Patient has correct armband on for positive identification. Bed in low position. Call kc6 light in reach. Side rails up X2. Adult w/ patient. Client placed on continuous cardiac and pulse oximetry monitoring. NIBP monitoring applied. 11:25 XRAY Chest (1 view) In Process Unspecified. EDMS 11:30 Straight cath inserted, using sterile technique, 16 Fr. Specimen obtained. Returned [facility] clear yellow urine. Patient tolerated well. Inserted saline lock: 20 gauge in left antecubital area, using aseptic technique. Blood collected. 11:41 CT Stone Protocol In Process Unspecified. EDMS 12:09 Eliel Underwood is Hospitalizing Provider. [facility] 12:12 Terry Blank MD is Hospitalizing Provider. [facility] 17:59 No provider procedures requiring assistance completed. Patient admitted, IV remains in kc6 place. Administered Medications: 11:50 Drug: NS 0.9% IV 500 ml IV at bolus once Route: IV; Rate: bolus; Site: left antecubital;kc 11:50 Drug: NS 0.9% IV 1000 ml IV at 125 ml/hr continuous Route: IV; Rate: 125 ml/hr; Site: kc6 left antecubital; Medication: 17:59 VIS not applicable for this client. kc Outcome: 12:10 Decision to Hospitalize by Provider. ranjan 17:59 Admitted to Med/surg accompanied by tech, via wheelchair, room 231, with chart, Report kc6 called to ANAMARIA Riddle 17:59 Condition: good 17:59 Instructed on the need for admit, 17:59 Patient left the ED. [facility] Signatures: Dispatcher [employer] EDDC Sunny, Sukumar, Emma France MD, cha, Kaitlyn, RN RN kc6
--- NOTE | 2023-04-14 12:23 | RAD REPORT ---
EXAM DESCRIPTION: CT - Stone Protocol - 04/14/2023 11:40 am CLINICAL HISTORY: Abdominal pain. Flank pain COMPARISON: 2022 TECHNIQUE: Computed axial tomography of the abdomen pelvis was obtained without oral or IV contrast. Lack of IV and oral contrast limits evaluation of solid organs, appendix, bowel, and vessels. Tomas l reformatted images were obtained and reviewed. All CT scans are performed using dose optimization technique as appropriate and may include automated exposure control or mA/KV adjustment according to patient size. FINDINGS: A renal calculus is not seen. An ureteral calculus is not noted. A bladder calculus is not present. The liver, spleen, pancreas and adrenals appear grossly normal There is no evidence of diverticulitis. Hysterectomy. No adnexal mass left hip arthroplasty. 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
[2023-04-14 12:24] LABS: Creatine Phosphokinase 80 U/L (26-192)
[2023-04-14] MEDS: NA CHLORIDE 0.9% 250 ML IV ONE (12:24)
[2023-04-14] MEDS ORDERED: ONDANSETRON 4 MG/2 ML VIAL IV PRN (12:27)
--- NOTE | 2023-04-14 12:36 | P.HP ---
Certification for Inpatient Patient admitted to: Inpatient With expected LOS: >2 Midnights Patient will require the following post-hospital care: None Practitioner: I am a practitioner with admitting privileges, knowledge of patient current condition, hospital course, and medical plan of care. Services: Services provided to patient in accordance with Admission requirements found in Title 42 Section 412.3 of the Code of Federal Regulations Patient History Date of Service: 04/14/23 Reason for admission: Altered mental status History of Present Illness: Patient is a 77-year-old female who was admitted to the hospital multiple occasions recently. Her last admission was a couple weeks ago for left hip fracture. This was repaired by orthopedic. Patient was sent to a assisted facility for rehabilitation. She was started on baclofen at the facility and her mentation was a little obtunded. She was given the baclofen for a few days and when the family asked for this to be stopped her mentation has improved. However, her ammonia level has been elevated. They sent her into the ER to monitor her ammonia level. They feel like she may have hepatic encephalopathy. Patient bilirubin is normal. Patient's coagulation profile is slightly elevated. Albumin level is also low. Patient also has acute renal insufficiency. Her baseline creatinine is 1.7 with a GFR of about 30. Currently her creatinine is 2.7 with a GFR of 18. Patient will be admitted for observation for gentle hydration. Will do a renal ultrasound as well. Ammonia level is pending. I do not have access to patient's labs from the nursing facility at this time. Will try to contact them and get those records transferred to our facility. Allergies Penicillins Allergy (Mild, Verified 03/29/14 22:36) Hives/Rash No Known Allergie Allergy (Uncoded 11/11/15 08:18) Unknown Home Medications: Amiodarone HCl [Cordarone*] 1 tab PO DAILY 05/30/17 Furosemide 1 tab PO DAILY 05/30/17 Insulin Glargine,Hum.rec.anlog [Lantus] 20 unit SQ DAILYPRN PRN 05/30/17 Sacubitril/Valsartan [Entresto 24 mg-26 mg Tablet] 1 tab PO DAILY 05/30/17 carvediloL [Carvedilol] 1 tab PO BID 05/30/17 Clopidogrel Bisulfate [Plavix*] 75 mg PO DAILY 08/25/21 Memantine HCl [Namenda] 10 mg PO DAILY 08/25/21 Rosuvastatin Calcium [Crestor] 20 mg PO DAILY 08/25/21 Tramadol HCl [Ultram] 50 mg PO BID PRN 08/25/21 Omeprazole 20 mg PO DAILY 12/23/22 Aspirin Tab [Dion Aspirin*] 325 mg PO BID tab 04/03/23 Hydrocodone 5/APAP 325 [[place] 5/325*] 1 tab PO Q6H PRN tab 04/03/23 - Past Medical/Surgical History Diabetic: Yes -: HLD -: Systolic CHF -: HTN -: DM II -: Dementia -: CKD III with Proteinuria (Dr. Obando/ Dr. Soriano) -: Thrombocytopenia -: PAD -: Pacer/Defib -: Back sX -: Hysterectomy -: Vascular Sx Psychosocial/ Personal History: Patient lives at home with family - Family History Mother Medical History: Hypertension Sister Medical History: Kidney disease Father Medical History: Heart disease Brother Medical History: Heart disease - Social History Smoking Status: Former smoker Alcohol use: No CD- Drugs: No Caffeine use: Yes Review of Systems 10-point ROS is otherwise unremarkable Physical Examination - Physical Exam General: Alert, In no apparent distress, Oriented x2, Confused HEENT: Atraumatic, PERRLA, Mucous membr. moist/pink, EOMI, Sclerae nonicteric Neck: Supple, 2+ carotid pulse no bruit, No LAD, Without JVD or thyroid abnormality Respiratory: Clear to auscultation bilaterally, Normal air movement Cardiovascular: Regular rate/rhythm, Normal S1 S2, Systolic murmur Gastrointestinal: Normal bowel sounds, No tenderness Musculoskeletal: No tenderness Integumentary: No rashes Neurological: Normal speech, Normal tone, Sensation intact, Cranial nerves 3-12 intact, Normal affect, Abnormal gait, Abnormal strength Lymphatics: No axilla or inguinal lymphadenopathy - Studies Laboratory Data (last 24 hrs) 04/14/23 04/14/23 04/14/23 11:26 11:26 11:26 WBC 6.50 Hgb 10.4 L Hct 31.7 L Plt Count 247 PT 14.0 H INR 1.28 Sodium 144 Potassium 4.0 BUN 38 H Creatinine 2.69 H Glucose 123 H Uric Acid 11.7 H Phosphorus 4.1 Magnesium 2.3 Total Bilirubin 0.2 AST 27 ALT 30 Alkaline Phosphatase 120 H Lipase 21 Assessment & Plan - Problems (Diagnosis) (1) Altered mental status Current Visit: Yes Status: Acute (2) Hyperammonemia Current Visit: Yes Status: Acute (3) Acute kidney injury Current Visit: Yes Status: Acute (4) Status post total hip replacement, left Current Visit: Yes Status: Acute (5) History of permanent cardiac pacemaker placement Current Visit: Yes Status: Acute (6) History of CAD (coronary artery disease) Current Visit: Yes Status: Acute (7) History of hypertension Current Visit: Yes Status: Acute (8) CHF (congestive heart failure) Onset Date: 05/31/16 Current Visit: No Status: Acute Qualifiers: - Plan 1. Gentle hydration 2. Panculture 3. IV antibiotic prophylactically 4. Imaging studies including CT of the brain. MRI if no abnormality 5. Monitor electrolytes 6. Check thyroid studies as well as cortisol level 7. Review medications 8. Neurochecks every 4 hours 9. Gentle hydration 10. Monitor renal function 11. Renal ultrasound 12. Check LFTs and ammonia level 13. GI DVT prophylaxis Discharge Plan: Senior Care Plan to discharge in: 24 Hours - Advance Directives Does patient have a Living Will: No Does patient have a Durable POA for Healthcare: No - Code Status/Comfort Care Code Status Assessed: Yes Code Status: Full Code Critical Care: No Time Spent Managing PTS Care (In Minutes): 45
--- NOTE | 2023-04-14 12:45 | RAD REPORT ---
EXAM DESCRIPTION: Mis Single View04/14/2023 11:23 am CLINICAL HISTORY: cough COMPARISON: March 31, 2023 FINDINGS: The lungs appear clear of acute infiltrate. The heart is mildly enlarged. Pacemaker lead in place IMPRESSION: No acute abnormalities displayed
[2023-04-14] MEDS: NA CHLORIDE 0.9% 1,000 ML IV SCH (13:00)
--- NOTE | 2023-04-14 14:08 | RAD REPORT ---
EXAM DESCRIPTION: US - Renal Ultrasound-Complete - 04/14/2023 1:41 pm CLINICAL HISTORY: Acute renal insufficiency COMPARISON: 2019 FINDINGS: The right kidney measures 9 cm with a normal echotexture. The left kidney measures 9 cm with a normal echotexture. 1.1 centimeter cyst Hydronephrosis is not seen. No gross abnormality of bladder IMPRESSION: Unremarkable renal ultrasound.
[2023-04-14] MEDS ORDERED: NA CHLORIDE 0.9% 250 ML ONE (14:24)
--- NOTE | 2023-04-14 15:22 | P.CNS ---
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 She had high ammonia level at the SNF. Serum ammonia level on adm is low. She is referred to Nephrology for TERRY. SCr increased at 2.7. She has poor po intake. BNP is elevated. Renal ultrasound is unremarkable. Creatinine kinase is not significantly elevated. Urinalysis unremarkable. She has high serum uric acid level. She is receiving normal saline IVF. Allergies Penicillins Allergy (Mild, Verified 03/29/14 22:36) Hives/Rash No Known Allergie Allergy (Uncoded 11/11/15 08:18) Unknown Home Medications: RX: Amiodarone HCl [Cordarone*] 1 tab PO DAILY 05/30/17 RX: Furosemide 1 tab PO DAILY 05/30/17 RX: Insulin Glargine,Hum.rec.anlog [Lantus] 20 unit SQ DAILYPRN PRN 05/30/17 RX: Sacubitril/Valsartan [Entresto 24 mg-26 mg Tablet] 1 tab PO DAILY 05/30/17 RX: carvediloL [Carvedilol] 1 tab PO BID 05/30/17 RX: Clopidogrel Bisulfate [Plavix*] 75 mg PO DAILY 08/25/21 RX: Memantine HCl [Namenda] 10 mg PO DAILY 08/25/21 RX: Omeprazole 20 mg PO DAILY 12/23/22 RX: Aspirin Tab [Dion Aspirin*] 325 mg PO BID tab 04/03/23 RX: Hydrocodone 5/APAP 325 [[place] 5/325*] 1 tab PO Q6H PRN tab 04/03/23 RX: Atorvastatin Calcium 1 tab PO DAILY 04/14/23 RX: Baclofen 1 tab PO Q12HR 04/14/23 Sennosides/Docusate Sodium [Senna Plus Tablet] 1 tab PO BID 04/14/23 - Past Medical/Surgical History Diabetic: Yes -: HLD -: Systolic CHF -: HTN -: DM II -: Dementia -: CKD III with Proteinuria (Dr. Obando/ Dr. Soriano) -: Thrombocytopenia -: PAD -: Pacer/Defib -: Back sX -: Hysterectomy -: Vascular Sx Psychosocial/ Personal History: Patient lives at home with family - Family History Mother Medical History: Hypertension Sister Medical History: Kidney disease Father Medical History: Heart disease Brother Medical History: Heart disease - Social History Smoking Status: Unknown if ever smoked Alcohol use: No CD- Drugs: No Caffeine use: Yes Review of Systems is unable to be obtained (d/t AMS) Physical Examination General: Other (chronically ill-appearing) HEENT: Atraumatic, Normocephalic Neck: Supple, JVD not distended Respiratory: Other (symmetric chest expansion) Cardiovascular: No rubs, No murmurs Gastrointestinal: Soft and benign, No guarding Musculoskeletal: No clubbing Integumentary: No warmth Neurological: Normal tone Lymphatics: No axilla or inguinal lymphadenopathy Urinary: Other (no bladder distention) External genitalia: Deferred Rectal: Deferred Laboratory Data (last 24 hrs) 04/14/23 04/14/23 04/14/23 11:26 11:26 11:26 WBC 6.50 Hgb 10.4 L Hct 31.7 L Plt Count 247 PT 14.0 H INR 1.28 Sodium 144 Potassium 4.0 BUN 38 H Creatinine 2.69 H Glucose 123 H Uric Acid 11.7 H Phosphorus 4.1 Magnesium 2.3 Total Bilirubin 0.2 AST 27 ALT 30 Alkaline Phosphatase 120 H Lipase 21 Conclusions/Impression: # TERRY likely secondary to prerenal state +/- ATN from prolonged prerenal SCr 2.7 on adm Urinalysis is unremarkable Renal ultrasound is unremarkable Creatinine kinase is not significantly elevated, no rhabdo Cont NS gtt Encourage po fluid intake at least 2L/day # 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
[2023-04-14 17:10] LABS: Ferritin 290.2 ng/mL (8-388)
[2023-04-14 17:20] VITALS: BMI 36.8
[2023-04-14] MEDS: BACLOFEN 10 MG TAB PO SCH (21:00)
[2023-04-14] MEDS: carvediloL 6.25 MG TAB PO SCH (22:03)
[2023-04-14] MEDS: DOCUSATE NA/SENNA CONC 1 TAB PO SCH (22:03)
[2023-04-14] MEDS: ASPIRIN 325 MG TAB PO SCH (22:03)
[2023-04-14] MEDS: HYDROCODONE/APAP 5/325 MG TAB PO PRN (22:04)
[2023-04-15] MEDS: PANTOPRAZOLE 40MG TABLET PO SCH (06:44)
[2023-04-15 07:00] LABS: UR PROTEIN 25.2 mg/dL (<11.9); Urine Protein/Creatinine Ratio 0.12 ratio (<0.15)
[2023-04-15 07:12] LABS: Absolute Lymphocytes (CBC) 0.9 K/uL (0.7-4.9); Hematocrit 31.6 % (36.0-45.0); Lymphocytes % 15.1 % (15.3-44.8); MPV 9.2 fL (7.6-11.3); Platelets 224 thou/uL (152-406); RBC Red Blood Cell Count 3.44 M/uL (3.86-4.86)
[2023-04-15 07:18] LABS: Protime INR 1.27
[2023-04-15 07:39] LABS: Albumin 2.5 g/dL (3.4-5.0); Bilirubin Total 0.3 mg/dL (0.2-1.0); Potassium 4.5 mEq/L (3.5-5.1); Protein, Total 6.3 g/dL (6.4-8.2)
[2023-04-15] MEDS: ATORVASTATIN 40 MG TAB PO SCH (08:33)
[2023-04-15] MEDS: MEMANTINE HCL 10 MG TABLET PO SCH (08:34)
[2023-04-15] MEDS: CLOPIDOGREL 75 MG TABLET PO SCH (08:34)
[2023-04-15] MEDS: FUROSEMIDE 40 MG TABLET PO SCH (08:34)
[2023-04-15] MEDS: AMIODARONE HCL 200 MG TAB PO SCH (08:34)
[2023-04-15] MEDS ORDERED: SACUBITRIL/VALSARTAN 24/26 MG TAB PO SCH (09:00)
--- NOTE | 2023-04-15 11:36 | P.DS ---
Admission Date: 04/14/23 Discharge Date: 04/15/23 Disposition: TRANSFER TO HALFWAY Discharge Condition: GOOD Reason for Admission: Altered mental status Brief History of Present Illness: Patient is a 77-year-old female who was admitted to the hospital multiple occasions recently. Her last admission was a couple weeks ago for left hip fracture. This was repaired by orthopedic. Patient was sent to a [facility]pc facility for rehabilitation. She was started on baclofen at the facility and her mentation was a little obtunded. She was given the baclofen for a few days and when the family asked for this to be stopped her mentation has improved. However, her ammonia level has been elevated. They sent her into the ER to monitor her ammonia level. They feel like she may have hepatic encephalopathy. Patient bilirubin is normal. Patient's coagulation profile is slightly elevated. Albumin level is also low. Patient also has acute renal insufficiency. Her baseline creatinine is 1.7 with a GFR of about 30. Curre ntly her creatinine is 2.7 with a GFR of 18. Patient will be admitted for observation for gentle hydration. Will do a renal ultrasound as well. Ammonia level is pending. I do not have access to patient's labs from the nursing facility at this time. Will try to contact them and get those records transferred to our facility. Hospital Course: Ms. Hendrix is alert, no complaints. Oriented x person and circumstance. Vital Signs/Physical Exam: Temp Pulse Resp BP Pulse Ox 98.2 F 59 18 111/62 99 04/15/23 04:00 04/15/23 04:00 04/15/23 06:44 04/15/23 04:00 04/15/23 04:00 General: Alert, In no apparent distress HEENT: Atraumatic, Normocephalic Neck: Supple Respiratory: Clear to auscultation bilaterally Cardiovascular: No edema, Normal pulses, Regular rate/rhythm Capillary refill: <2 Seconds Gastrointestinal: Normal bowel sounds, Soft and benign Musculoskeletal: Other (left hip wound s/p surgery healing without s/s infection) Integumentary: No rashes, No breakdown Neurological: Normal speech Lymphatics: No axilla or inguinal lymphadenopathy External genitalia: Deferred Rectal: Deferred Laboratory Data at Discharge: WBC 6.00 thou/uL (4.3-10.9) 04/15/23 07:03 Hgb 10.5 g/dL (12.0-15.0) L 04/15/23 07:03 Hct 31.6 % (36.0-45.0) L 04/15/23 07:03 Plt Count 224 thou/uL (152-406) 04/15/23 07:03 PT 13.9 SECONDS (9.5-12.5) H 04/15/23 07:03 INR 1.27 04/15/23 07:03 APTT 30.9 SECONDS (24.3-36.9) 04/15/23 07:03 Sodium 144 mEq/L (136-145) 04/15/23 07:03 Potassium 4.5 mEq/L (3.5-5.1) 04/15/23 07:03 BUN 30 mg/dL (7-18) H 04/15/23 07:03 Creatinine 2.06 mg/dL (0.55-1.02) H 04/15/23 07:03 Glucose 117 mg/dL (74-106) H 04/15/23 07:03 Uric Acid 11.7 mg/dL (2.6-6.0) H 04/14/23 11:26 Phosphorus 4.1 mg/dL (2.5-4.9) 04/14/23 11:26 Magnesium 2.3 mg/dL (1.6-2.4) 04/14/23 11:26 Total Bilirubin 0.3 mg/dL (0.2-1.0) 04/15/23 07:03 AST 22 U/L (15-37) 04/15/23 07:03 ALT 26 U/L (13-56) 04/15/23 07:03 Alkaline Phosphatase 116 U/L (45-117) 04/15/23 07:03 Lipase 21 U/L (13-75) 04/14/23 11:26 Home Medications: Amiodarone HCl [Cordarone*] 1 tab PO DAILY 05/30/17 Furosemide 1 tab PO DAILY 05/30/17 Insulin Glargine,Hum.rec.anlog [Lantus] 20 unit SQ DAILYPRN PRN 05/30/17 Sacubitril/Valsartan [Entresto 24 mg-26 mg Tablet] 1 tab PO DAILY 05/30/17 carvediloL [Carvedilol] 1 tab PO BID 05/30/17 Clopidogrel Bisulfate [Plavix*] 75 mg PO DAILY 08/25/21 Memantine HCl [Namenda] 10 mg PO DAILY 08/25/21 Omeprazole 20 mg PO DAILY 12/23/22 Aspirin Tab [Dion Aspirin*] 325 mg PO BID tab 04/03/23 Hydrocodone 5/APAP 325 [[place] 5/325*] 1 tab PO Q6H PRN tab 04/03/23 Atorvastatin Calcium 1 tab PO DAILY 04/14/23 Baclofen 1 tab PO Q12HR 04/14/23 Sennosides/Docusate Sodium [Senna Plus Tablet] 1 tab PO BID 04/14/23 Diet: ADA Followup: Griselda Yao DO [Primary Care Provider] -
--- NOTE | 2023-04-15 14:30 | EKG ---
Test Date: 2023-04-14 Test Time: 11:09:34 Core Fitter: GAVI MEASUREMENT RESULTS: Intervals: Rate: 59 MT: 230 QRSD: 132 QT: 506 QTc: 500 [place]: P: 56 MT: 230 QRS: -24 T: 32 INTERPRETIVE STATEMENTS: Sinus bradycardia with 1st degree AV block Nonspecific intraventricular block Possible Lateral infarct, age undetermined Abnormal ECG Compared to ECG 03/28/2023 15:06:25 Myocardial infarct finding now present Left-axis deviation no longer present Left bundle-branch block no longer present Electronically Signed On 04-15-23 14:27:01 PIPELINES SUPERINTENDENT by Lee Garza
--- NOTE | 2023-04-16 02:53 | PN ---
Date of Progress Note: 04/15/2023 Chief Complaint: Chronic kidney disease. Subjective: The patient is a 77-year-old woman with history of chronic kidney disease stage 3B advan cing to stage 4 secondary to diabetes mellitus and hypertension. Baseline creatinine level was 1.7 t o 1.9 as of April 03. She has also history of hypertension, diabetes mellitus, coronary artery disease, systolic congestive heart failure, dementia, peripheral vascular disease, status post PPM. The patient was found to have acute kidney injury. Serum creatinine level increased to 2.7 and she w as started on normal saline IV infusion for acute kidney injury. Review of Systems: Patient denies fever, chills. Physical Examination: Lungs: Diminished breath sounds at bases. Heart: S1-S2. Abdomen: Soft. Extremities: No edema. Impression And Plan: 1.Acute kidney injury secondary to prerenal state advancing to nonoliguric acute tubular necrosis du e to prolonged prerenal condition. Serum creatinine level is 2.7, on admission, urinalysis did not s how active urinary sediment. There is no evidence of nephritis. Renal ultrasound is unremarkable. There is no hydronephrosis. CK level is not significantly elevated. There is no rhabdo. The patien t will continue normal saline for hydration. Encourage p.o. fluid intake. 2.Chronic kidney disease stage 3B/4 secondary to diabetes mellitus. Acute kidney injury secondary t o prerenal state. Avoid nephrotoxic medication. 3.Altered mental status. Serum ammonia level was high and patient will continue management as recom mended by Primary team. 4.Hypertension. Continue current medication regimen. 5.Diabetes mellitus. Recommend insulin. Continue treatment. 6.Coronary artery disease, chronic systolic congestive heart failure. Continue blood pressure medic ation with beta marcos. Avoid nonsteroidal anti-inflammatory medication. 7.Hyperuricemia. Hydration as above. EB/MODL Voice ID: [id number] Report ID: [id number]
[2023-04-16 08:31] LABS: Hematocrit 31.3 % (36.0-45.0); Lymphocytes % 18.6 % (15.3-44.8); MCV 92.1 fL (80-100); Platelets 215 thou/uL (152-406)
[2023-04-16 08:39] LABS: Albumin 2.9 g/dL (3.4-5.0); Bilirubin Total 0.3 mg/dL (0.2-1.0); Potassium 3.8 mEq/L (3.5-5.1); Protein, Total 6.7 g/dL (6.4-8.2)
--- NOTE | 2023-04-16 08:45 | P.PN ---
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, left hip with incision dry, intact, healing well) Integumentary: As per HPI Neurological: Confusion (Night RN states the patient was up wandering and confused all night) Lymphatics: As per HPI Physical Examination - Vital Signs Temperature: 97.5 F Blood Pressure: 154/57 Pulse: 70 Respirations: 18 Pulse Ox (%): 96 - Physical Exam General: In no apparent distress, Obese, Other (resting with eyes closed after being up all night) Respiratory: Normal air movement Cardiovascular: Normal pulses Capillary refill: <2 Seconds Gastrointestinal: Soft and benign Musculoskeletal: No clubbing, No swelling Integumentary: No rashes Neurological: Other (confused over night, will stop Baclofen, [place], and [place] ) Lymphatics: No axilla or inguinal lymphadenopathy External genitalia: Deferred Rectal: Deferred Assessment And Plan - Plan Problems (Diagnosis) (1) Altered mental status Current Visit: Yes Status: Acute (2) Acute kidney injury Current Visit: Yes Status: Acute (4) Status post total hip replacement, left Current Visit: Yes Status: Acute (5) History of permanent cardiac pacemaker placement Current Visit: Yes Status: Acute (6) History of CAD (coronary artery disease) Current Visit: Yes Status: Acute (7) History of hypertension Current Visit: Yes Status: Acute (8) CHF (congestive heart failure) Onset Date: 05/31/16 Current Visit: No Status: Acute Qualifiers: - Plan 1. Gentle hydration 2. Panculture 3. IV antibiotic prophylactically 4. Imaging studies including CT of the brain. MRI if no abnormality 5. Monitor electrolytes 6. Check thyroid studies as well as cortisol level (PTH elevated, cortisol within normal) 7. Review medications - stop Baclofen, [place], and Zofran 8. Neurochecks every 4 hours 9. Gentle hydration 10. Monitor renal function 11. Renal ultrasound - normal 12. Check LFTs and ammonia level - normal 13. GI DVT prophylaxis Discharge Plan: [facility] Plan to discharge in: 24 Hours - Advance Directives Does patient have a Living Will: No Does patient have a Durable POA for Healthcare: No - Code Status/Comfort Care Code Status Assessed: Yes Code Status: Full Code Critical Care: No
[2023-04-16] MEDS: ACETAMINOPHEN 500 MG TAB PO PRN (12:30)
--- NOTE | 2023-04-16 14:38 | P.PN ---
Subjective Date of Service: 04/15/23 Chief Complaint: Altered mental status Subjective: No new changes Review of Systems 10-point ROS is otherwise unremarkable General: Unremarkable Eyes: Unremarkable ENT: Unremarkable Respiratory: Unremarkable Cardiovascular: Unremarkable Gastrointestinal: Unremarkable Genitourinary: Unremarkable Musculoskeletal: Unremarkable Integumentary: Unremarkable Neurological: As per HPI Lymphatics: Unremarkable Physical Examination - Vital Signs Temperature: 97.5 F Blood Pressure: 154/57 Pulse: 70 Respirations: 18 Pulse Ox (%): 96 - Physical Exam General: Alert, Oriented x2 HEENT: Atraumatic, Normocephalic, PERRLA Neck: Supple, 2+ carotid pulse no bruit Respiratory: Clear to auscultation bilaterally, Normal air movement Cardiovascular: No edema Capillary refill: <2 Seconds Gastrointestinal: Normal bowel sounds, Soft and benign Musculoskeletal: No clubbing (right foot tenderness, pulses intact, left hip incision dry, intact) Integumentary: No rashes, No breakdown Neurological: Normal speech Lymphatics: No axilla or inguinal lymphadenopathy External genitalia: Deferred Rectal: Deferred Assessment And Plan - Plan Problems (Diagnosis) (1) Altered mental status Current Visit: Yes Status: Acute (2) Acute kidney injury Current Visit: Yes Status: Acute (4) Status post total hip replacement, left Current Visit: Yes Status: Acute (5) History of permanent cardiac pacemaker placement Current Visit: Yes Status: Acute (6) History of CAD (coronary artery disease) Current Visit: Yes Status: Acute (7) History of hypertension Current Visit: Yes Status: Acute (8) CHF (congestive heart failure) Onset Date: 05/31/16 Current Visit: No Status: Acute Qualifiers: - Plan 1. Gentle hydration 2. Panculture 3. IV antibiotic prophylactically 4. Imaging studies including CT of the brain. MRI if no abnormality 5. Monitor electrolytes 6. Check thyroid studies as well as cortisol level (PTH elevated, cortisol within normal) 7. Review medications -will stop Baclofen, [place], and Zofran 8. Neurochecks every 4 hours 9. Gentle hydration 10. Monitor renal function 11. Renal ultrasound - normal 12. Check LFTs and ammonia level - normal 13. GI DVT prophylaxis Discharge Plan: Detention Plan to discharge in: 24 Hours - Advance Directives Does patient have a Living Will: No Does patient have a Durable POA for Healthcare: No - Code Status/Comfort Care Code Status Assessed: Yes Code Status: Full Code Critical Care: No
--- NOTE | 2023-04-16 20:21 | PN ---
Date of Progress Note: 04/16/2023 Subjective: The patient was admitted to the hospital with acute kidney injury. The patient has been found to have acute kidney injury secondary to prerenal kidney function, continued to improve. The patient is feeling better. Physical Examination: Vital Signs: Blood pressure 154/72, pulse of 70, afebrile. Chest: Clear to auscultation. Heart: S1, S2 regular. Abdomen: Soft, nontender. Extremities: No edema. Neurologic: Alert. No focality. Lab Data: The patient's WBC 5.5, hemoglobin 10.2, sodium 145, potassium 3.8, bicarb 25, BUN 24, creatinine down to 1.9, GFR 26, calcium 9.1. Albumin 2.9, hemoglobin 10.2. Current Medications: The patient on include: 1. Aspirin. 2. Carvedilol 6.25. 3. Atorvastatin. 4. Namenda. 5. Lasix 40 daily. Assessment And Plan: 1. Acute kidney injury secondary to cardiorenal poor perfusion acute tubular necrosis. Continue to recover. Kidney function continued to improve. Obstructive uropathy has been ruled out. We will continue current diuresis. 2. Chronic kidney disease stage 3B/4 with acute kidney injury as above. The patient's baseline creatinine around 1.7 as of April 03. The patient closer to her baseline. We will continue current diuresis. 3. Proteinuria, non-nephrotic secondary to hypertension. No need for special treatment. 4. Hypokalemia. We will continue supplement. 5. Congestive heart failure with exacerbation, combined systolic and diastolic dysfunction. We will continue diuresis and we will monitor the patient. I am going to add spironolactone. 6. Diabetes. As per primary. 7. Coronary artery disease with congestive heart failure, as above. Time spent examining the patient [id number] reviewing Lab and radiology placing orders discussing the case with the patient and the daughter by bedside and logistics team lead including hospitalist and nursing staff more than 75 minutes SABINA Voice ID: [id number] Report ID: [id number] MTDD
[2023-04-16] MEDS ORDERED: QUETIAPINE 25 MG TAB PO SCH (21:00)
[2023-04-16] MEDS ORDERED: TRAZODONE 50 MG TABLET PO PRN (23:44)
[2023-04-17] MEDS: SPIRONOLACTONE 25 MG TABLET PO SCH (09:16)
--- NOTE | 2023-04-17 10:27 | RAD REPORT ---
EXAM DESCRIPTION: US - Lower Extremity Artery Uni Ltd - 04/17/2023 10:14 am CLINICAL HISTORY: severe pain to right ankle/foot COMPARISON: None FINDINGS: Color Doppler, grayscale, and spectral analysis was performed. The right common femoral artery has a triphasic waveform. The superficial femoral artery has a monoph asic waveform. The proximal popliteal artery has a monophasic waveform and is ultimately occluded. Mo nophasic waveforms are present within the dorsalis pedis and posterior tibial arteries. Scattered are as of calcified plaque noted. 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 Monophasic waveforms in the runof f vessels suggest some collateral flow.
--- NOTE | 2023-04-17 11:47 | P.PN ---
Date of Service: 04/17/23 Subjective Date of Service: 04/17/23 Chief Complaint: Altered mental status Subjective: right foot/ankle pain Review of Systems 10-point ROS is otherwise unremarkable General: As per HPI Eyes: Unremarkable ENT: Unremarkable Respiratory: Unremarkable Cardiovascular: Unremarkable Gastrointestinal: Unremarkable Genitourinary: Unremarkable Musculoskeletal: Other (right spout tender, left hip with incision dry, intact, healing well) Integumentary: As per HPI Neurological: Confusion, mild - improved over last pm Lymphatics: As per HPI Physical Examination - Vital Signs reviewed - Physical Exam General: In no apparent distress, Obese Respiratory: Normal air movement Cardiovascular: Normal pulses Capillary refill: <2 Seconds Gastrointestinal: Soft and benign Musculoskeletal: No clubbing, No swelling, right ankle/foot pain Integumentary: No rashes Neurological: Answers questions appropriately Lymphatics: No axilla or inguinal lymphadenopathy External genitalia: Deferred Rectal: Deferred Assessment And Plan - Plan Problems (Diagnosis) (1) Altered mental status Current Visit: Yes Status: Acute (2) Acute kidney injury Current Visit: Yes Status: Acute (4) Status post total hip replacement, left Current Visit: Yes Status: Acute (5) History of permanent cardiac pacemaker placement Current Visit: Yes Status: Acute (6) History of CAD (coronary artery disease) Current Visit: Yes Status: Acute (7) History of hypertension Current Visit: Yes Status: Acute (8) CHF (congestive heart failure) Onset Date: 05/31/16 Current Visit: No Status: Acute Qualifiers: - Plan 1. Gentle hydration 2. Panculture 3. IV antibiotic prophylactically 4. Imaging studies including CT of the brain. MRI if no abnormality 5. Monitor electrolytes/renal function 6. Check thyroid studies as well as cortisol level (PTH elevated, cortisol within normal) 7. Review medications - stop Baclofen, [place], and Zofran 8. Neurochecks every 4 hours 9. GI DVT prophylaxis 10. Right foot/ankle pain, arterial US shows short segment occlusion at popliteal area, + collaterals. Will have cardio see while awaiting re-entry to [place] Discharge Plan: Custodial Plan to discharge in: 24 Hours - Advance Directives Does patient have a Living Will: No Does patient have a Durable POA for Healthcare: No - Code Status/Comfort Care Code Status Assessed: Yes Code Status: Full Code Critical Care: No
--- NOTE | 2023-04-17 13:15 | PN ---
Date of Progress Note: 04/17/2023 Subjective: The patient was admitted to the hospital with acute kidney injury with CHF exacerbation, acute kidney injury secondary to cardiorenal. The patient had been diuresed, responded very well. The patient had ultrasound today. Physical Examination: Vital Signs: Blood pressure 163/67, pulse of 66, afebrile. The patient had good urine output, voidi ng. Chest: Faint rales bilateral bases. Heart: S1, S2, systolic murmur. Abdomen: Soft, nontender. Extremities: Plus edema. Neurologic: Alert. No focality. Lab Data: Hemoglobin 10.2. Sodium 145, potassium 3.8, bicarb 25, BUN 24, creatinine 1.9, GFR 26, ca lcium 9.1. Chest x-ray, cardiomegaly with congestion. Doppler ultrasound was done today and showing the occlusion of the right popliteal artery monophasic. Echocardiogram was done before with ejectio n fraction of 45%, combined dysfunction, cardiac and noncardiac. Current Medications: The patient on include: 1.Amiodarone. 2.Atorvastatin. 3.Carvedilol 6.25 b.i.d. 4.Spironolactone. 5.Namenda. 6.Trazodone. 7.IV fluid. Assessment And Plan: 1.Acute kidney injury secondary to cardiorenal, poor perfusion, ATN. The patient continues to recov er. I am going to discontinue IV fluid and we will continue to monitor. 2.Chronic kidney disease stage IIIB/IV with acute kidney injury as above. Normal size kidney, basel ine creatinine around 1.7. 3.Proteinuria, nonnephrotic, secondary to hypertension, stable. 4.Hypokalemia, we started the patient on spironolactone. We will follow up the level. 5.Diabetes. As by primary. 6.Congestive heart failure, combined systolic and diastolic. We will optimize fluid status. Discon tinue IV fluid. 7.CAD. As above. Follow up with Cardiology. 8.PAD. We will follow up with primary. NICO/JAROCHO Voice ID: [id number] Report ID: [id number]
--- NOTE | 2023-04-17 17:18 | P.CNS ---
Date of Consult: 04/17/23 Chief Complaint: Altered mental status History of Present Illness: patient with known history of heart failure was seen earlier for hip surgery clearance, now we are re consulted regarding abnormal LILI and right 2nd toe pain. Allergies Penicillins Allergy (Mild, Verified 03/29/14 22:36) Hives/Rash No Known Allergie Allergy (Uncoded 11/11/15 08:18) Unknown Home Medications: Amiodarone HCl [Cordarone*] 1 tab PO DAILY 05/30/17 Furosemide 1 tab PO DAILY 05/30/17 Insulin Glargine,Hum.rec.anlog [Lantus] 20 unit SQ DAILYPRN PRN 05/30/17 Sacubitril/Valsartan [Entresto 24 mg-26 mg Tablet] 1 tab PO DAILY 05/30/17 carvediloL [Carvedilol] 1 tab PO BID 05/30/17 Clopidogrel Bisulfate [Plavix*] 75 mg PO DAILY 08/25/21 Memantine HCl [Namenda] 10 mg PO DAILY 08/25/21 Omeprazole 20 mg PO DAILY 12/23/22 Aspirin Tab [Dion Aspirin*] 325 mg PO BID tab 04/03/23 Hydrocodone 5/APAP 325 [[place] 5/325*] 1 tab PO Q6H PRN tab 04/03/23 Atorvastatin Calcium 1 tab PO DAILY 04/14/23 Baclofen 1 tab PO Q12HR 04/14/23 Sennosides/Docusate Sodium [Senna Plus Tablet] 1 tab PO BID 04/14/23 - Past Medical/Surgical History Diabetic: Yes -: HLD -: Systolic CHF -: HTN -: DM II -: Dementia -: CKD III with Proteinuria (Dr. Obando/ Dr. Soriano) -: Thrombocytopenia -: PAD -: Pacer/Defib -: Back sX -: Hysterectomy -: Vascular Sx Psychosocial/ Personal History: Patient lives at home with family - Family History Mother Medical History: Hypertension Sister Medical History: Kidney disease Father Medical History: Heart disease Brother Medical History: Heart disease - Social History Smoking Status: Unknown if ever smoked Alcohol use: No CD- Drugs: No Caffeine use: Yes Place of Residence: [place] Review of Systems 10-point ROS is otherwise unremarkable Physical Examination Temp Pulse Resp BP Pulse Ox 99.4 F 64 19 144/55 H 97 04/17/23 16:00 04/17/23 16:00 04/17/23 16:00 04/17/23 16:00 04/17/23 16:00 General: Alert, Oriented x3 HEENT: Atraumatic Neck: Supple Respiratory: Clear to auscultation bilaterally Cardiovascular: No edema, Normal S1 S2 Musculoskeletal: No clubbing - Problems (1) PAD (peripheral artery disease) Current Visit: Yes Status: Acute Plan: LILI was reviewed and patient got occluded PT with two vessels run off below knee, no signs of limb ischemia the right 2nd toe looks inflammed which might be scondary to arthritis vs infection. would recommend antibiotics for treatment and maybe a course of NSAIDs and steriods. no need for further peripheral work up at this time.
[2023-04-17] MEDS: DIVALPROEX DR 250 MG TAB PO SCH (20:13)
[2023-04-18] MEDS: HYDROCODONE/APAP 5/325 MG TAB PO ONE (03:51)
[2023-04-18 04:26] VITALS: O2SAT 100
[2023-04-18 04:34] LABS: Phosphorus 2.8 mg/dL (2.5-4.9); Potassium 3.8 mEq/L (3.5-5.1)
--- NOTE | 2023-04-18 08:16 | P.DS ---
Admission Date: 04/17/23 Discharge Date: 04/18/23 Disposition: TRANSFER TO HALF-WAY Comment: pt pending insurance verification to return to [facility] Discharge Condition: GOOD Reason for Admission: Altered mental status Brief History of Present Illness: Patient is a 77-year-old female who was admitted to the hospital multiple occasions recently. Her last admission was a couple weeks ago for left hip fracture. This was repaired by orthopedic. Patient was sent to a half-way facility for rehabilitation. She was started on baclofen at the facility and her mentation was a little obtunded. She was given the baclofen for a few days and when the family asked for this to be stopped her mentation has improved. However, her ammonia level has been elevated. They sent her into the ER to monitor her ammonia level. They feel like she may have hepatic encephalopathy. Patient bilirubin is normal. Patient's coagulation profile is slightly elevated. Albumin level is also low. Patient also has acute renal insufficiency. Her baseline creatinine is 1.7 with a GFR of about 30. Currently her creatinine is 2.7 with a GFR of 18. Patient will be admitted for observation for gentle hydration. Will do a renal ultrasound as well. Hospital Course: Ms. Hendrix is alert, no complaints. Oriented x person and circumstance. Her ammonia level was never elevated on admission. She is s/p left hip surgery and was taking Baclofen and [place]. She was confused at night post medications. Medications were stopped. She has been more oriented since. It was noted on observation/admission that she had some acute on chronic renal disease. She also complained of significant right foot and ankle pain. With gentle hydration and monitoring with Nephrology, her renal status is back at baseline. Her circulation was evaluated 2nd to foot pain, there is short segment arterial occlusion at the popliteal but positive collateral circulation. Cleared per cardiology that vascular status at this time does not need additional intervention. Pt wished paul to be removed from surgical site, cleared with Dr. Arizmendi. I will remove her paul and discharge her to [facility] with follow up with the mentioned specialties. Vital Signs/Physical Exam: Temp Pulse Resp BP Pulse Ox 98.3 F 64 20 180/81 H 99 04/18/23 08:00 04/18/23 08:00 04/18/23 08:00 04/18/23 08:00 04/18/23 08:00 General: Alert, In no apparent distress, Oriented x3 HEENT: Atraumatic, Normocephalic Neck: Supple Respiratory: Clear to auscultation bilaterally Cardiovascular: No edema, Normal pulses, Other Capillary refill: <2 Seconds Gastrointestinal: Soft and benign, Other (sitting up eating breakfast on second round) Musculoskeletal: No clubbing, No swelling, Other (right foot/ankle tenderness) Integumentary: No rashes, Other (surgical site to left hip dry and intact, request made for staple removal, Dr. Ugo giordano with me removing prior to pt discharge) Neurological: Normal speech, Normal tone, Other (using walker with PT) Lymphatics: No axilla or inguinal lymphadenopathy External genitalia: Deferred Rectal: Deferred Laboratory Data at Discharge: WBC 5.50 thou/uL (4.3-10.9) 04/16/23 08:08 Hgb 10.2 g/dL (12.0-15.0) L 04/16/23 08:08 Hct 31.3 % (36.0-45.0) L 04/16/23 08:08 Plt Count 215 thou/uL (152-406) 04/16/23 08:08 PT 13.9 SECONDS (9.5-12.5) H 04/15/23 07:03 INR 1.27 04/15/23 07:03 APTT 30.9 SECONDS (24.3-36.9) 04/15/23 07:03 Sodium 144 mEq/L (136-145) 04/18/23 03:45 Potassium 3.8 mEq/L (3.5-5.1) 04/18/23 03:45 BUN 22 mg/dL (7-18) H 04/18/23 03:45 Creatinine 2.01 mg/dL (0.55-1.02) H 04/18/23 03:45 Glucose 149 mg/dL (74-106) H 04/18/23 03:45 Uric Acid 11.7 mg/dL (2.6-6.0) H 04/14/23 11:26 Phosphorus 2.8 mg/dL (2.5-4.9) 04/18/23 03:45 Magnesium 2.3 mg/dL (1.6-2.4) 04/14/23 11:26 Total Bilirubin 0.3 mg/dL (0.2-1.0) 04/16/23 08:08 AST 11 U/L (15-37) L 04/16/23 08:08 ALT 23 U/L (13-56) 04/16/23 08:08 Alkaline Phosphatase 125 U/L (45-117) H 04/16/23 08:08 Lipase 21 U/L (13-75) 04/14/23 11:26 Home Medications: Amiodarone HCl [Cordarone*] 1 tab PO DAILY 05/30/17 Furosemide 1 tab PO DAILY 05/30/17 Insulin Glargine,Hum.rec.anlog [Lantus] 20 unit SQ DAILYPRN PRN 05/30/17 Sacubitril/Valsartan [Entresto 24 mg-26 mg Tablet] 1 tab PO DAILY 05/30/17 carvediloL [Carvedilol] 1 tab PO BID 05/30/17 Clopidogrel Bisulfate [Plavix*] 75 mg PO DAILY 08/25/21 Memantine HCl [Namenda] 10 mg PO DAILY 08/25/21 Omeprazole 20 mg PO DAILY 12/23/22 Aspirin Tab [Dion Aspirin*] 325 mg PO BID tab 04/03/23 Atorvastatin Calcium 1 tab PO DAILY 04/14/23 Baclofen 1 tab PO Q12HR 04/14/23 Sennosides/Docusate Sodium [Senna Plus Tablet] 1 tab PO BID 04/14/23 Physician Discharge Instructions: -DC IV and DC home -Follow-up with PCP in 1 to 2 weeks -Follow-up with Nephrology in 1 to 2 weeks -Please call Dr. Blank at [phone] if any questions regarding hospital stay -Please call nursing station at [phone] if any nursing or medication questions -Return to the emergency room if symptoms worsen Diet: ADA Activity: Fall precautions Followup: Griselda Yao DO [Primary Care Provider] - Patrick Stubbs MD [ACTIVE - CAN ADMIT] -
[2023-04-18 08:17] VITALS: BP 180/81; TEMP 98.3
[2023-04-18] MEDS ORDERED: FUROSEMIDE 40 MG/4 ML VIAL IV ONE (10:58)
--- NOTE | 2023-04-18 12:26 | PN ---
DICTATION ENDS HERE. SABINA Voice ID: [id number] Report ID: [id number]
--- NOTE | 2023-04-18 12:41 | PN ---
Date of Progress Note: 04/18/2023 Subjective: The patient was admitted to the hospital with acute kidney injury secondary to cardioren al, congestive heart failure with exacerbation. The patient status post I and D today. Objective: Vital Signs: Blood pressure 180/81, pulse of 64, afebrile. Chest: Clear to auscultation. Heart: S1, S2. Regular. Abdomen: Soft, nontender. Extremities: +1 edema. Neurologic: Alert. No focality. Laboratory Data: Hemoglobin 10.2, sodium 144, potassium 3.8, bicarb 25, BUN 22, creatinine 2, calciu m 9.3, phosphorus 2.8, albumin of 3. Current Medications: The patient on include: 1.Aspirin. 2.Plavix. 3.Amiodarone. 4.Atorvastatin. 5.Carvedilol 6.25 b.i.d. 6.Spironolactone 25 daily. 7.Namenda. 8.Lasix 40 daily. 9.Pantoprazole. Assessment And Plan: 1.Acute kidney injury secondary to cardiorenal, looked to me patient still on the wet side. I am go ing to go ahead and give the patient extra dose of Lasix. Continue spironolactone and Lasix for toda y. I am going to get repeated chest x-ray for better evaluation of her fluid status and we will foll ow up the patient. 2.Hypertension, controlled, not optimal, present with overvolume. I am going to give extra dose of Lasix. We will add nitro patch for the patient. Increase carvedilol to 12.5 mg and we will monitor the patient. 3.Congestive heart failure with exacerbation, as above. We will optimize the fluid status. 4.Hyponatremia, dilutional, recovered, resolved. NICO/MODL Voice ID: [id number] Report ID: [id number]
[2023-04-18] MEDS ORDERED: carvediloL 12.5 MG TAB PO SCH (21:00)
[2023-04-19] MEDS ORDERED: NITROGLYCERIN 0.2 MG/HR (5 MG) PATCH TD SCH (09:00)
== END 2023-04-18 10:58 | DRG 682 ==
LOC: ER 10:46 → OBSVTOIN 12:27 → INTOOBSV 12:27 → ERHOLD 12:27 → 2ND 17:32 → OBSVTOIN 04-17 16:06
PROVIDERS: ADMIT Hospitalist; ATTEND Hospitalist
DX: N17.0 Acute kidney failure with tubular necrosis (principal); I50.43 Acute on chronic combined systolic (congestive) and diastolic (congestive) heart failure; E72.20 Disorder of urea cycle metabolism, unspecified; I13.0 Hypertensive heart and chronic kidney disease with heart failure and stage 1 through stage 4 chronic kidney disease, or unspecified chronic kidney disease; E87.1 Hypo-osmolality and hyponatremia; N18.4 Chronic kidney disease, stage 4 (severe); E11.22 Type 2 diabetes mellitus with diabetic chronic kidney disease; E11.51 Type 2 diabetes mellitus with diabetic peripheral angiopathy without gangrene; E78.5 Hyperlipidemia, unspecified; E87.6 Hypokalemia; K21.9 Gastro-esophageal reflux disease without esophagitis; F03.90 Unspecified dementia, unspecified severity, without behavioral disturbance, psychotic disturbance, mood disturbance, and anxiety; I25.10 Atherosclerotic heart disease of native coronary artery without angina pectoris; Z88.0 Allergy status to penicillin; Z79.4 Long term (current) use of insulin; Z79.82 Long term (current) use of aspirin; Z79.02 Long term (current) use of antithrombotics/antiplatelets; Z90.49 Acquired absence of other specified parts of digestive tract; Z96.642 Presence of left artificial hip joint; Z90.710 Acquired absence of both cervix and uterus; Z95.810 Presence of automatic (implantable) cardiac defibrillator; Z79.899 Other long term (current) drug therapy
CPT/HCPCS: 36415; 51702; 71045; 74176; 76377; 76770; 80048; 80053; 80069; 80076; 81003; 82140; 82306; 82550; 82570; 82728; 82947; 83540; 83690; 83735; 83880; 83935; 83970; 84100; 84132; 84156; 84300; 84466; 84484; 84550; 85025; 85610; 85730; 93005; 93926; 97116; 97161; 97530; 99285; G0378; J7030; J7040; J7050

== ENCOUNTER 2023-05-03 11:34 | Inpatient (IN) | payer OTHER ==
[2023-05-03] MEDS ORDERED: NA CHLORIDE 0.9% 250 ML ONE (12:27)
[2023-05-03] MEDS ORDERED: VANCOMYCIN 1 GM/VIAL ONE (12:27)
[2023-05-03] MEDS ORDERED: NA CHLORIDE 0.9% 0 ML ONE (12:27)
[2023-05-03] MEDS ORDERED: CEFEPIME 1 GM/VIAL ONE (12:28)
[2023-05-03 14:03] LABS: Absolute Basophils 0.1 K/uL (0-0.5); Absolute Eosinophils 0.1 K/uL (0-0.5); Absolute Lymphocytes (CBC) 0.8 K/uL (0.7-4.9); Absolute Monocytes 0.6 K/uL (0.1-1.3); Absolute Neutrophil 4.7 K/uL (1.8-8.0); Eosinophils % 2.1 % (0-4.4); Hematocrit 31.8 % (36.0-45.0); Hemoglobin 10.4 g/dL (12.0-15.0); Lymphocytes % 12.2 % (15.3-44.8); MCH 29.9 pg (27.0-35.0); MCHC 32.8 g/dL (32.0-36.0); MCV 91.2 fL (80-100); MPV 9.4 fL (7.6-11.3); Monocytes % 9.3 % (3.3-12.3); Neutrophils % 75.4 % (41.7-73.7); Nucleated Red Blood Cells % 0.1 % (0-0); Platelets 186 thou/uL (152-406); RBC Red Blood Cell Count 3.49 M/uL (3.86-4.86); Red Cell Distribution Width 14.9 % (12.1-15.2)
[2023-05-03 14:22] LABS: Albumin 3.2 g/dL (3.4-5.0); Albumin/Globulin Ratio 0.8 (1.1-1.8); Bilirubin Total 0.3 mg/dL (0.2-1.0); C-Reactive Protein 9.64 mg/L (<3.00); Globulin 3.8 g/dL (2.3-3.5)
--- NOTE | 2023-05-03 14:26 | ER ---
Nurse's Notes [facility] Name: Sangita Hendrix Age: 77 yrs Sex: Female : 1945 Arrival Date: 05/03/2023 Time: 11:34 Bed 18 Private MD: Diagnosis: Osteomyelitis, unspecified Presentation: 05/02 11:42 Chief complaint: Patient states: R foot 2nd digit toe pain, swelling. X-rays shows ll1 possible osteomyelitis. No fever. Coronavirus screen: Client denies travel out of the [place] in the last 14 days. At this time, the client does not indicate any symptoms associated with coronavirus-19. Ebola Screen: Patient denies travel to an Ebola-affected area in the 21 days before illness onset. Initial Sepsis Screen: Does the patient meet any 2 criteria? No. Patient's initial sepsis screen is negative. Does the patient have a suspected source of infection? No. Patient's initial sepsis screen is negative. Risk Assessment: Do you want to hurt yourself or someone else? Patient reports no desire to harm self or others. Onset of symptoms was March 04, 2023. 11:42 Method Of Arrival: Wheelchair ll1 11:42 Acuity: MADISYN 2 ll1 Triage Assessment: 11:45 General: Appears uncomfortable, Behavior is calm, cooperative, appropriate for age. ll1 Pain: Complains of pain in right foot Pain currently is 10 out of 10 on a pain scale. Quality of pain is described as aching. Derm: Wound noted R foot 2nd digit Reports pain. Musculoskeletal: Circulation, motion, and sensation intact. Capillary refill < 3 seconds, Reports pain in right foot. Injury Description: Bruise. Historical: - Allergies: 11:39 PENICILLINS; ll1 11:41 BACLOFEN; ll1 11:41 [place]; ll1 - PMHx: 11:39 BRADYCARDIA; CHF; Dementia; Dementia; Diabetes - IDDM; GERD; hiatal hernia; Pacemaker; ll1 - PSHx: 11:39 hysterectomy; ll1 11:41 back SX; hip FX repair; ll1 - Immunization history:: Adult Immunizations up to date. - Social history:: Smoking status: Patient denies any tobacco usage or history of. Screenin:55 [facility] ED Fall Risk Assessment (Adult) History of falling in the last 3 months, mb9 including since admission No falls in past 3 months (0 pts) Confusion or Disorientation No (0 pts) Intoxicated or Sedated No (0 pts) Impaired Gait No (0 pts) Mobility Assist Device Used No (0 pt) Altered Elimination No (0 pt) Score/Fall Risk Level 0 - 2 = Low Risk Oriented to surroundings, Maintained a safe environment, Educated pt \T\ family on fall prevention, incl call for assistance when getting out of bed. Abuse screen: Denies threats or abuse. Nutritional screening: No deficits noted. Tuberculosis screening: No symptoms or risk factors identified. Assessment: 12:55 General: Appears in no apparent distress. Behavior is calm, cooperative. mb9 12:56 Pain: Complains of pain in right foot. Neuro: Ortiz Agitation-Sedation Scale (RASS): mb9 0 - Alert and Calm Level of Consciousness is awake, alert, obeys commands, Oriented to person, place, time, situation, Appropriate for age. Cardiovascular: Heart tones S1 S2 present Patient's skin is warm and dry. Respiratory: Airway is patent Respiratory effort is even, unlabored, Respiratory pattern is regular, symmetrical, Breath sounds are clear bilaterally. GI: Abdomen is round non-distended, Bowel sounds present X 4 quads. Abd is soft and non tender X 4 quads. : No signs and/or symptoms were reported regarding the genitourinary system. EENT: No signs and/or symptoms were reported regarding the EENT system. Derm: Wound noted right foot. Derm: Skin is pink, warm \T\ dry. Wound noted right toe. Erythema noted. Musculoskeletal: Range of motion: intact in all extremities. 14:02 Reassessment: No changes from previously documented assessment. Patient and/or family mb9 updated on plan of care and expected duration. Pain level reassessed. Patient is alert, oriented x 3, equal unlabored respirations, skin warm/dry/pink. 15:14 Reassessment: No changes from previously documented assessment. Patient and/or family mb9 updated on plan of care and expected duration. Pain level reassessed. Patient is alert, oriented x 3, equal unlabored respirations, skin warm/dry/pink. 15:37 General: called and notified Jasmin on the second floor that a fax would be sent for kd3 this patient. . 15:53 Reassessment: nurse requesting extension before pt goes upstairs. mb9 16:42 Reassessment: No changes from previously documented assessment. Patient and/or family mb9 updated on plan of care and expected duration. Pain level reassessed. Patient is alert, oriented x 3, equal unlabored respirations, skin warm/dry/pink. Vital Signs: 11:42 BP 125 / 61; Pulse 55; Resp 17; Temp 97.3; Pulse Ox 100% ; Weight 97.07 kg; Height 5 ll1 ft. 3 in. ; Pain 10/10; 14:02 BP 144 / 73; Pulse 61; Resp 18; Temp 97.4; Pulse Ox 100% on R/A; mb9 15:14 BP 162 / 71; Pulse 63; Resp 18; Pulse Ox 100% on R/A; mb9 16:42 BP 158 / 72; Pulse 62; Resp 18; Pulse Ox 100% on R/A; mb9 11:42 Body Mass Index 37.91 (97.07 kg, 160.02 cm) ll1 11:42 Pain Scale: Adult ll1 ED Course: 11:38 Patient arrived in ED. mg5 11:38 Ananda Ramirez MD is Attending Physician. ec2 11:39 Arm band placed on. ll1 11:45 Triage completed. ll1 12:25 Erlinda White, ANAMARIA is Primary Nurse. mb9 12:40 EKG done, by ED staff, reviewed by Ananda Ramirez MD. mb9 12:55 Placed in gown. Bed in low position. Call light in reach. Side rails up X 1. Provided mb9 Education on: pressing call light if needing anything. Client placed on continuous cardiac and pulse oximetry monitoring. NIBP monitoring applied. front desk monitor on. Door closed. Noise minimized. Warm blanket given. 12:55 No provider procedures requiring assistance completed. mb9 13:25 Missed attempt(s): 20 gauge in right forearm. Bleeding controlled, band aid applied, mb9 catheter tip intact. 13:45 Inserted saline lock: 20 gauge in left antecubital area, using aseptic technique. nj1 ,using aseptic technique. Ultrasound guided. Catheter tip well visualized within vasculature during placement. Blood collected. 13:45 Initial lab(s) drawn, by ED staff, sent to lab. First set of blood cultures drawn by ED mb9 staff. 14:00 CMP Sent. mb9 14:25 Terry Blank MD is Hospitalizing Provider. ec2 15:15 Patient admitted, IV remains in place. mb9 Administered Medications: 14:00 Drug: Cefepime IVPB 1 grams IVPB at 200 ml/hr once over 30 mins; (mix in NS 100 mL) mb9 Route: IVPB; Rate: 200 ml/hr; Infused Over: 30 mins; Site: left antecubital; 14:33 Follow up: Response: No adverse reaction; IV Status: Completed infusion mb9 14:34 Drug: vancoMYCIN IVPB 1 grams IVPB once over 2 hrs Route: IVPB; Infused Over: 2 hrs; mb9 Site: left antecubital; 16:42 Follow up: Response: No adverse reaction; IV Status: Completed infusion mb9 Medication: 12:55 VIS not applicable for this client. mb9 Outcome: 14:25 Decision to Hospitalize by Provider. ec2 17:07 Admitted to Med/surg accompanied by nurse, via stretcher, room 232, with chart, mb9 17:07 Condition: stable 17:07 Instructed on the need for admit, 17:07 Patient left the ED. mb9 Signatures: Janna Hernandez RN RN ll1 Dunia Meraz RN RN kd3 Erlinda White RN RN mb9 Sonja Artis, RN RN Aleida José mg5 Ananda Ramirez MD MD ec2 Corrections: (The following items were deleted from the chart) 11:42 11:39 PMHx: Gout; ll1 ll1 11:42 11:39 PSHx: Cholecystectomy; ll1 ll1 11:45 11:42 Pulse 55bpm; Resp 17bpm; Pulse Ox 100%; Temp 97.3F; Pain 10/10, Adult; ll1 ll1 12:56 12:55 General: Appears mb9 mb9 14:02 12:56 Derm: Skin is pink, warm \T\ dry. mb9 mb9
--- NOTE | 2023-05-03 14:26 | EDPHYS ---
Physician Documentation [facility] Name: Sangita Hendrix Age: 77 yrs Sex: Female : 1945 Arrival Date: 05/03/2023 Time: 11:34 Bed 18 Private MD: ED Physician Ananda Ramirez HPI: 05/02 11:52 This 77 yrs old Black Female presents to ER via Wheelchair with complaints of ec2 osteomyelitis. 11:52 Patient arrives today for evaluation of osteomyelitis. Patient had outpatient x-ray ec2 that showed osteomyelitis of the right second toe. Patient reports no fevers or chills, no nausea or vomiting. Reports otherwise normal state of health.. Historical: - Allergies: 11:39 PENICILLINS; ll1 11:41 BACLOFEN; ll1 11:41 [place]; ll1 - PMHx: 11:39 BRADYCARDIA; CHF; Dementia; Dementia; Diabetes - IDDM; GERD; hiatal hernia; Pacemaker; ll1 - PSHx: 11:39 hysterectomy; ll1 11:41 back SX; hip FX repair; ll1 - Immunization history:: Adult Immunizations up to date. - Social history:: Smoking status: Patient denies any tobacco usage or history of. ROS: 11:52 Constitutional: as per hpi ec2 Exam: 11:52 Constitutional: GEN: NAD Head: atraumatic Eyes: EOMI Ears: External ears are ec2 normal. CV: regular rate LUNGS: no respiratory distress ABD: non-distended SKIN: Right second toe with gangrenous appearance, no crepitus, no warmth, no discharge MSK: no evidence of trauma NEURO: moves all extremities equally Vital Signs: 11:42 BP 125 / 61; Pulse 55; Resp 17; Temp 97.3; Pulse Ox 100% ; Weight 97.07 kg; Height 5 ll1 ft. 3 in. ; Pain 10/10; 14:02 BP 144 / 73; Pulse 61; Resp 18; Temp 97.4; Pulse Ox 100% on R/A; mb9 15:14 BP 162 / 71; Pulse 63; Resp 18; Pulse Ox 100% on R/A; mb9 16:42 BP 158 / 72; Pulse 62; Resp 18; Pulse Ox 100% on R/A; mb9 11:42 Body Mass Index 37.91 (97.07 kg, 160.02 cm) ll1 11:42 Pain Scale: Adult ll1 MDM: 11:42 Patient medically screened. ec2 11:52 Data reviewed: vital signs. ED course: Patient arrives today with abnormal appearing ec2 toes concern for osteomyelitis. Examination remarkable for toe findings as above. Will obtain lab work, give the patient vancomycin empirically. Will admit for osteomyelitis management. Patient already had outpatient x-ray of the foot, will defer this.. 13:04 ED course: EKG independently reviewed and interpreted by me, shows normal sinus rhythm, ec2 rate 59, no acute ST segment elevations, intervals are nonconcerning, does show first-degree AV block.. 14:23 ED course: CBC reassuring, metabolic profile shows renal dysfunction with a creatinine ec2 of 2.07 and GFR 24. CRP elevated 9.6. Will admit for IV antibiotics. Discussed case with hospitalist, pending admission. . 05/02 11:52 Order name: CBC with Diff; Complete Time: 14:23 ec2 05/02 11:52 Order name: CMP; Complete Time: 14:23 ec2 05/02 11:52 Order name: Blood Culture Adult (2) ec2 05/02 11:52 Order name: CRP; Complete Time: 14:23 ec2 05/02 11:52 Order name: EKG; Complete Time: 11:52 ec2 05/02 11:52 Order name: EKG - Nurse/Tech; Complete Time: 12:51 ec2 05/02 12:54 Order name: IV Saline Lock; Complete Time: 14:00 mb9 Administered Medications: 14:00 Drug: Cefepime IVPB 1 grams IVPB at 200 ml/hr once over 30 mins; (mix in NS 100 mL) mb9 Route: IVPB; Rate: 200 ml/hr; Infused Over: 30 mins; Site: left antecubital; 14:33 Follow up: Response: No adverse reaction; IV Status: Completed infusion mb9 14:34 Drug: vancoMYCIN IVPB 1 grams IVPB once over 2 hrs Route: IVPB; Infused Over: 2 hrs; mb9 Site: left antecubital; 16:42 Follow up: Response: No adverse reaction; IV Status: Completed infusion mb9 Disposition Summary: 05/03/23 14:25 Hospitalization Ordered Notes: Hospitalization Status: Inpatient Admission ec2 Provider: Terry Blank ec2 Location: Telemetry/MedSurg (Inpatient) ec2 Condition: Stable ec2 Problem: new ec2 Symptoms: are unchanged ec2 Bed/Room Type: Standard ec2 Room Assignment: 232(05/03/23 15:29) 5 Diagnosis - Osteomyelitis, unspecified ec2 Forms: - Medication Reconciliation Form ec2 - SBAR form ec2 - Leadership Thank You Letter ec2 Signatures: Dispatcher [employer] Janna Gonzalez RN RN ll1 Erlinda White RN RN mb9 Argelia De La Garza 5 Ananda Ramirez MD MD ec2 Corrections: (The following items were deleted from the chart) 11:42 11:39 PMHx: Gout; ll1 ll1 11:42 11:39 PSHx: Cholecystectomy; [place] [id number] 14:25 ec2 5
--- NOTE | 2023-05-03 15:18 | P.HP ---
Certification for Inpatient Patient admitted to: Inpatient With expected LOS: >2 Midnights Patient will require the following post-hospital care: None Practitioner: I am a practitioner with admitting privileges, knowledge of patient current condition, hospital course, and medical plan of care. Services: Services provided to patient in accordance with Admission requirements found in Title 42 Section 412.3 of the Code of Federal Regulations Patient History Date of Service: 05/03/23 Reason for admission: Osteomyelitis History of Present Illness: 77-year-old female with history of chronic systolic congestive heart failure with pacemaker in place, CKD 3, insulin-dependent diabetes type 2, hypertension, hyperlipidemia, chronic thrombocytopenia, peripheral artery disease, dementia with recent admission for left hip fracture status post hemiarthroplasty 03/29 presents to the emergency department with chief complaint of right toe/foot pain. She reports she has been having ongoing pain in that foot and was seen by her primary care physician who ordered an x-ray. X-ray performed on 05/02/2023 showed bony destruction is seen involving the middle and distal phalanx of the second toe with soft tissue swelling compatible with osteomyelitis. Patient was referred to the hospital for further management. She was evaluated in the emergency department her labs were significant for white blood count 6.2 hemoglobin 10.4 hematocrit 31.8 creatinine 2.07 which is similar to her baseline C-reactive protein 9.64 blood cultures were obtained in the emergency department patient was started on vancomycin/cefepime. Patient need to be admitted for further evaluation management of osteomyelitis of the distal phalanx of the second toe. Allergies Penicillins Allergy (Mild, Verified 03/29/14 22:36) Hives/Rash No Known Allergie Allergy (Uncoded 11/11/15 08:18) Unknown Home Medications: Amiodarone HCl [Cordarone*] 1 tab PO DAILY 05/30/17 Furosemide 1 tab PO DAILY 05/30/17 Insulin Glargine,Hum.rec.anlog [Lantus] 20 unit SQ DAILYPRN PRN 05/30/17 Sacubitril/Valsartan [Entresto 24 mg-26 mg Tablet] 1 tab PO DAILY 05/30/17 carvediloL [Carvedilol] 1 tab PO BID 05/30/17 Clopidogrel Bisulfate [Plavix*] 75 mg PO DAILY 08/25/21 Memantine HCl [Namenda] 10 mg PO DAILY 08/25/21 Omeprazole 20 mg PO DAILY 12/23/22 Aspirin Tab [Dion Aspirin*] 325 mg PO BID tab 04/03/23 Atorvastatin Calcium 1 tab PO DAILY 04/14/23 Baclofen 1 tab PO Q12HR 04/14/23 Sennosides/Docusate Sodium [Senna Plus Tablet] 1 tab PO BID 04/14/23 - Past Medical/Surgical History Diabetic: Yes -: HLD -: Systolic CHF -: HTN -: DM II -: Dementia -: CKD III with Proteinuria (Dr. Obando/ Dr. Soriano) -: Thrombocytopenia -: PAD -: Pacer/Defib -: Back sX -: Hysterectomy -: Vascular Sx Psychosocial/ Personal History: Patient lives at home with family - Family History Mother -: Hypertension Sister -: Kidney disease Father -: Heart disease Brother -: Heart disease - Social History Smoking Status: Unknown if ever smoked Alcohol use: No CD- Drugs: No Caffeine use: Yes Place of Residence: Home Review of Systems 10-point ROS is otherwise unremarkable Musculoskeletal: Foot Pain Physical Examination - Physical Exam General: Alert, In no apparent distress, Oriented x3 HEENT: Atraumatic, PERRLA, Mucous membr. moist/pink, EOMI Neck: Supple, 2+ carotid pulse no bruit, No LAD Respiratory: Clear to auscultation bilaterally, Normal air movement Cardiovascular: Regular rate/rhythm, Normal S1 S2 Gastrointestinal: Normal bowel sounds, No tenderness Musculoskeletal: No tenderness Integumentary: Tenderness/swelling (Right foot second toe) Neurological: Normal gait, Normal speech, Normal strength at 5/5 x4 extr, Normal tone - Studies Laboratory Data (last 24 hrs) 05/03/23 05/03/23 13:45 13:45 WBC 6.20 Hgb 10.4 L Hct 31.8 L Plt Count 186 Sodium 138 Potassium 4.0 BUN 18 Creatinine 2.07 H Glucose 122 H Total Bilirubin 0.3 AST 24 ALT 17 Alkaline Phosphatase 122 H Assessment and Plan - Plan Assessment: Osteomyelitis of the right second toe middle and distal phalanx PAD Chronic systolic congestive heart failure with pacemaker in place CKD 3 Diabetes mellitus type 2insulin-dependent Hypertension Hyperlipidemia Chronic thrombocytopenia Dementia Plan: Osteomyelitis of the right second toe middle and distal phalanx PAD X-ray shows suspected osteomyelitis, patient has pacemaker in place likely not a candidate for MRI Will consult general surgery, continue IV antibiotics vancomycin/cefepime No overlying wound currently During recent admission patient had arterial ultrasound of the right lower extremity performed which showed short segment occlusion of the right popliteal artery. Monophasic waveforms in the runoff vessels suggest some collateral flow. Patient was evaluated by cardiology during that admission who recommended no further peripheral vascular workup Continue IV antibiotics, patient likely to require prolonged antibiotics likely 6 to 8 weeks Blood cultures obtained, no SIRS criteria present currently Chronic systolic congestive heart failure with pacemaker in place Family reports she was having some lower extremity edema but they had restarted her Lasix recently and has been improving Continue daily Lasix Continue other home medications once verified CKD 3 Renally dose medications Monitor renal function during hospitalization Sees Dr. Obando/Dr. Soriano-consult for any worsening Diabetes mellitus type 2insulin-dependent ACHS Accu-Chek, sliding scale insulin Continue home dose insulin when verified Hypertension Hyperlipidemia Continue home medications Chronic thrombocytopenia Platelets within normal months this time Monitor daily Continue aspirin, Plavix Hold subcu heparin if platelets less than 100 Dementia Continue home medications DVT PPX: Heparin subcu Code status: Full Discharge Plan: Home Plan to discharge in: Greater than 2 days - Advance Directives Does patient have a Living Will: Yes Does patient have a Durable POA for Healthcare: Yes - Code Status/Comfort Care Code Status Assessed: Yes (Full code) Critical Care: No Time Spent Managing Pts Care (In Minutes): 70
[2023-05-03 18:11] VITALS: O2SAT 100
[2023-05-03 18:12] VITALS: BMI 37.9
[2023-05-03] MEDS ORDERED: HYDROCODONE/APAP 5/325 MG TAB PO PRN (18:51)
[2023-05-03] MEDS ORDERED: ONDANSETRON 4 MG/2 ML VIAL IV PRN (18:51)
[2023-05-03] MEDS: INSULIN REGULAR (HUMAN) 100 UNIT/ML SQ SCH (18:51)
[2023-05-03] MEDS: VANCOMYCIN 1 GM in NA CHLORIDE 0.9% 250 ML IVPB ONE (20:10)
[2023-05-03] MEDS: HEPARIN 5000 UNIT/ML 1 ML VIAL SQ SCH (20:11)
[2023-05-03] MEDS: CEFEPIME 1 GM in NA CHLORIDE 0.9% 100 ML IV SCH (21:27)
[2023-05-03] MEDS: ACETAMINOPHEN 325 MG TABLET PO PRN (21:27)
[2023-05-03] MEDS: TRAMADOL HCL 50 MG TAB PO PRN (21:42)
[2023-05-03] MEDS: GABAPENTIN 400 MG CAP PO PRN (21:43)
[2023-05-03] MEDS: MELATONIN 5 MG TABLET PO PRN (21:43)
[2023-05-03] MEDS ORDERED: PNEUMOCOCCAL VACCINE 0.5 ML IMVAC ONE (23:00)
[2023-05-04 07:23] LABS: Absolute Eosinophils 0.1 K/uL (0-0.5); Absolute Lymphocytes (CBC) 0.8 K/uL (0.7-4.9); Absolute Monocytes 0.6 K/uL (0.1-1.3); Absolute Neutrophil 3.4 K/uL (1.8-8.0); Basophils % 0.9 % (0-1.3); Eosinophils % 2.2 % (0-4.4); Hematocrit 29.2 % (36.0-45.0); Hemoglobin 9.7 g/dL (12.0-15.0); Lymphocytes % 16.2 % (15.3-44.8); MCH 30.3 pg (27.0-35.0); MCHC 33.3 g/dL (32.0-36.0); MCV 91.1 fL (80-100); MPV 9.3 fL (7.6-11.3); Monocytes % 12.2 % (3.3-12.3); Neutrophils % 68.5 % (41.7-73.7); Platelets 152 thou/uL (152-406); RBC Red Blood Cell Count 3.21 M/uL (3.86-4.86); Red Cell Distribution Width 15.4 % (12.1-15.2)
[2023-05-04 07:33] LABS: Anion Gap 8.7 mEq/L (5.0-15.0); Potassium 3.7 mEq/L (3.5-5.1)
[2023-05-04] MEDS: carvediloL 6.25 MG TAB PO SCH (08:58)
[2023-05-04] MEDS: MEMANTINE HCL 10 MG TABLET PO SCH (08:58)
[2023-05-04] MEDS: AMIODARONE HCL 200 MG TAB PO SCH (08:58)
[2023-05-04] MEDS: CLOPIDOGREL 75 MG TABLET PO SCH (08:59)
[2023-05-04] MEDS: FUROSEMIDE 40 MG TABLET PO SCH (08:59)
[2023-05-04] MEDS: SACUBITRIL/VALSARTAN 24/26 MG TAB PO SCH (08:59)
[2023-05-04] MEDS: INSULIN GLARGINE 100 UNIT/ML SQ SCH (09:10)
--- NOTE | 2023-05-04 10:13 | CON ---
Date of Consultation: 05/03/2023 Reason For Consultation: Right second foot osteomyelitis. History Of Present Illness: The patient is a 77-year-old female with multiple medical problems, who was referred by her primary care physician on with swelling and pain in the right second toe and found to have osteomyelitis, was sent to the hospital for further evaluation and management. Th patient denies any recent trauma. She does have history of severe peripheral vascular disease and no fever or chills. No open wound. No purulent discharge. No sore throat, runny nose, cough, heada ches, or dizziness. No chest pain. Review of Systems: Otherwise unremarkable. Medical History: Significant for hyperlipidemia, systolic CHF, hypertension, type 2 diabetes, favian ia, chronic renal disease, thrombocytopenia, peripheral arterial disease. Past Surgical History: Significant for pacemaker placement, back surgery, hysterectomy, and vascular surgery. Allergies: PENICILLIN. Social History: She does not smoke or drink alcohol. Family History: Significant for kidney disease and heart disease. Physical Examination: Vital Signs: Stable. She is afebrile. General: She is awake, alert, oriented x3. Head and Neck: No masses. Chest: Clear. Heart: S1, S2. Abdomen: Soft. Extremities: Markedly diminished dorsalis pedis and posterior tibial pulses. There is tenderness, s welling, and dark discoloration to the right second toe. There is tenderness as well. There is no o pen wound. There are some stage I pressure ulcers on the heel, which are padded by foam. Laboratory Data: White count was 6.2 on admission with a slight left shift. Chemistry reviewed. Cr eatinine is 2.0. An x-ray reviewed with the radiologist consistent with osteomyelitis of the second toe. Assessment: Right second toe osteomyelitis in a patient with peripheral vascular disease. Recommendations: The patient will need a PICC line, 6 weeks IV antibiotics, likely vancomycin per pr otocol and she can get an IR consultation as an outpatient for evaluation of her peripheral vascular disease to see if intervention would help this patient. Plan of care discussed in detail with the [facility] as well as Dr. Baig's office. /MODL Voice ID: [id number] Report ID: [id number]
--- NOTE | 2023-05-04 11:34 | P.PN ---
Date of Service: 05/04/23 Subjective: No acute events overnight Complains of pain in right foot Seen by general surgery ROS: 10 point ROS as noted above, otherwise negative Physical exam GEN: Alert, oriented, NAD HEENT: Normal conjunctiva, sclera anicteric CV: Regular rate and rhythm, no edema Pulm: Nonlabored respirations on room air ABD: Soft, nontender, nondistended MSK: No joint tenderness Integumentary: No rashes Neuro: Normal speech, normal affect Vitals reviewed Assessment: Osteomyelitis of the right second toe middle and distal phalanx PAD Chronic systolic congestive heart failure with pacemaker in place CKD 3 Diabetes mellitus type 2insulin-dependent Hypertension Hyperlipidemia Chronic thrombocytopenia Dementia Plan: Osteomyelitis of the right second toe middle and distal phalanx PAD X-ray shows suspected osteomyelitis, patient has pacemaker in place likely not a candidate for MRI Will consult general surgery, continue IV antibiotics vancomycin/cefepime No overlying wound currently During recent admission patient had arterial ultrasound of the right lower extremity performed which showed short segment occlusion of the right popliteal artery. Monophasic waveforms in the runoff vessels suggest some collateral flow. Patient was evaluated by cardiology during that admission who recommended no further peripheral vascular workup Continue IV antibiotics, patient likely to require prolonged antibiotics 6 weeks Blood cultures obtained-pending, no SIRS criteria present currently PICC line ordered Seen by general surgery Chronic systolic congestive heart failure with pacemaker in place Family reports she was having some lower extremity edema but they had restarted her Lasix recently and has been improving Continue daily Lasix Continue other home medications once verified CKD 3 Renally dose medications Monitor renal function during hospitalization Sees Dr. Obando/Dr. Soriano-consult for any worsening Diabetes mellitus type 2insulin-dependent ACHS Accu-Chek, sliding scale insulin Continue home dose insulin when verified Hypertension Hyperlipidemia Continue home medications Chronic thrombocytopenia Platelets within normal limits at this time Monitor daily Continue aspirin, Plavix Hold subcu heparin if platelets less than 100 Dementia Continue home medications DVT PPX: Heparin subcu Code status: Full Discharge Plan: Home Plan to discharge in: Greater than 2 days Time Spent Managing Pts Care (In Minutes): 35
[2023-05-04] MEDS: ROSUVASTATIN 10 MG TAB PO SCH (20:21)
[2023-05-04] MEDS: Mupirocin NASAL 2 APPL/1 GM TUBE NAS SCH (20:22)
[2023-05-05 07:13] LABS: Absolute Eosinophils 0.1 K/uL (0-0.5); Absolute Monocytes 0.6 K/uL (0.1-1.3); Absolute Neutrophil 2.6 K/uL (1.8-8.0); Basophils % 1.1 % (0-1.3); Eosinophils % 3.2 % (0-4.4); Hematocrit 27.5 % (36.0-45.0); Hemoglobin 9.2 g/dL (12.0-15.0); Lymphocytes % 23.5 % (15.3-44.8); MCH 30.3 pg (27.0-35.0); MCHC 33.3 g/dL (32.0-36.0); MCV 90.9 fL (80-100); MPV 9.5 fL (7.6-11.3); Neutrophils % 59.2 % (41.7-73.7); Nucleated Red Blood Cells % 0.1 % (0-0); Platelets 147 thou/uL (152-406); RBC Red Blood Cell Count 3.03 M/uL (3.86-4.86); Red Cell Distribution Width 14.7 % (12.1-15.2)
[2023-05-05 07:30] LABS: Anion Gap 8.5 mEq/L (5.0-15.0); Magnesium 1.8 mg/dL (1.6-2.4); Potassium 3.5 mEq/L (3.5-5.1)
--- NOTE | 2023-05-05 08:00 | RAD REPORT ---
[facility] 7[facility]54 [facility] CLINICAL HISTORY: PICC Placement COMPARISON: Chest Single View dated 04/14/2023; Chest Single View dated 03/31/2023; Chest Single View dated 03/28/2023; Chest Single View dated 12/23/2022 TECHNIQUE: Portable AP view of the chest. FINDINGS: Right arm in place with catheter tip at the superior cavoatrial junction. Mild hyperlucenc y. The lungs are clear. No pneumothorax or effusion. The cardiomediastinal contours are unremarkable . Left chest wall pacer unchanged in position. IMPRESSION: No acute cardiopulmonary process. Right arm PICC in satisfactory position.
--- NOTE | 2023-05-05 11:07 | P.PN ---
Date of Service: 05/05/23 Subjective: PICC in place No acute events overnight C/O right foot pain ROS: 10 point ROS as noted above, otherwise negative Physical exam GEN: Alert, oriented, NAD HEENT: Normal conjunctiva, sclera anicteric CV: Regular rate and rhythm, no edema Pulm: Nonlabored respirations on room air ABD: Soft, nontender, nondistended MSK: No joint tenderness Integumentary: right second toe with swelling, darkened skin Neuro: Normal speech, normal affect Vitals reviewed Assessment: Osteomyelitis of the right second toe middle and distal phalanx PAD Chronic systolic congestive heart failure with pacemaker in place CKD 3 Diabetes mellitus type 2insulin-dependent Hypertension Hyperlipidemia Chronic thrombocytopenia Dementia Plan: Osteomyelitis of the right second toe middle and distal phalanx PAD X-ray shows suspected osteomyelitis, patient has pacemaker in place likely not a candidate for MRI Will consult general surgery, continue IV antibiotics vancomycin/cefepime No overlying wound currently During recent admission patient had arterial ultrasound of the right lower extremity performed which showed short segment occlusion of the right popliteal artery. Monophasic waveforms in the runoff vessels suggest some collateral flow. Patient was evaluated by cardiology during that admission who recommended no further peripheral vascular workup Recommend outpatient follow up with her vascular surgeo Dr. Doan-she has an appointment 05/06 if she is out of hospital Continue IV antibiotics, patient will require prolonged antibiotics for 6 weeks Blood cultures obtained-pending, NGTD PICC line in place Seen by general surgery ID consult to manage/follow abx Chronic systolic congestive heart failure with pacemaker in place Family reports she was having some lower extremity edema but they had restarted her Lasix recently and has been improving Continue daily Lasix Continue other home medications once verified CKD 3 Renally dose medications Monitor renal function during hospitalization Sees Dr. Obando/Dr. Soriano-consult for any worsening Diabetes mellitus type 2insulin-dependent ACHS Accu-Chek, sliding scale insulin Hypertension Hyperlipidemia Continue home medications Chronic thrombocytopenia Platelets within normal limits at this time Monitor daily Continue aspirin, Plavix Hold subcu heparin if platelets less than 100 Dementia Continue home medications DVT PPX: Heparin subcu Code status: Full Discharge Plan: Home Plan to discharge in: Greater than 2 days Time Spent Managing Pts Care (In Minutes): 35 <Armond Philip - Last Filed: 05/05/23 11:05> Patient seen and examined on rounds this morning with MANAGER [employer] Cedrick. Agree with plan as noted above with the following additions/corrections: got some better sleep last night, overall seems to be improving; no new/worsening symptoms cultures pending - NGTD PICC in place ID consulted right 2nd toe: edema, dark, tender <Bruce Baig - Last Filed: 05/05/23 13:29>
[2023-05-05] MEDS: VANCOMYCIN 1.5 GM in NA CHLORIDE 0.9% 500 ML IVPB SCH (14:16)
--- NOTE | 2023-05-05 16:15 | RAD REPORT ---
EXAM DESCRIPTION: RAD - Ankle Right 3 View - 05/05/2023 3:34 pm CLINICAL HISTORY: fall, right ankle pain COMPARISON: No comparisons TECHNIQUE: Right ankle, 3 views. FINDINGS: No fracture, dislocation or periosteal reaction. Moderate degenerative changes of the midf oot and tibiotalar articulation. Moderate calcaneal spur. No joint effusion seen. No joint space narr owing. Soft tissue swelling anteriorly. Vascular calcifications. IMPRESSION: No acute osseous abnormality. Degenerative changes and soft tissue swelling as above.
[2023-05-05] MEDS: DOCUSATE NA 100 MG CAP PO ONE (18:23)
[2023-05-06 05:49] LABS: Absolute Basophils 0.1 K/uL (0-0.5); Absolute Eosinophils 0.2 K/uL (0-0.5); Absolute Lymphocytes (CBC) 0.8 K/uL (0.7-4.9); Absolute Monocytes 0.4 K/uL (0.1-1.3); Absolute Neutrophil 3.4 K/uL (1.8-8.0); Eosinophils % 4.9 % (0-4.4); Hematocrit 27.9 % (36.0-45.0); Hemoglobin 9.2 g/dL (12.0-15.0); Lymphocytes % 16.2 % (15.3-44.8); MCH 30.1 pg (27.0-35.0); MCHC 33.1 g/dL (32.0-36.0); MCV 91.2 fL (80-100); MPV 9.4 fL (7.6-11.3); Monocytes % 9.1 % (3.3-12.3); Neutrophils % 67.8 % (41.7-73.7); Nucleated Red Blood Cells % 0.2 % (0-0); Platelets 154 thou/uL (152-406); RBC Red Blood Cell Count 3.06 M/uL (3.86-4.86)
[2023-05-06 06:06] LABS: Anion Gap 8.7 mEq/L (5.0-15.0); Potassium 3.7 mEq/L (3.5-5.1)
--- NOTE | 2023-05-06 09:45 | P.CNS ---
Date of Consult: 05/06/23 Reason for Consult: osteomyelitis Requesting Physician: Armond Philip Chief Complaint: Osteomyelitis History of Present Illness: Patient is a 77 year old female with a past medical history of chronic systolic CHF, pacemaker, CKD III, diabetes mellitus type II, HTN, HLD, peripheral arterial disease and dementia who presented to the ED with complaints of right toe/foot pain. XR right foot reporting "Bony destruction is seen involving the middle and distal phalanx of the second toe with soft tissue swelling compatible with osteomyelitis." Infectious disease was consulted. Allergies Penicillins Allergy (Mild, Verified 03/29/14 22:36) Hives/Rash baclofen Allergy (Verified 05/03/23 20:09) Hives/Rash hydrocodone Allergy (Verified 05/03/23 20:09) Hives/Rash No Known Allergie Allergy (Uncoded 11/11/15 08:18) Unknown Home Medications: Amiodarone HCl [Cordarone*] 1 tab PO DAILY 05/30/17 Furosemide 1 tab PO DAILY 05/30/17 Insulin Glargine,Hum.rec.anlog [Lantus] 20 unit SQ DAILY 05/30/17 Sacubitril/Valsartan [Entresto 24 mg-26 mg Tablet] 1 tab PO BID 05/30/17 carvediloL [Carvedilol] 1 tab PO BID 05/30/17 Clopidogrel Bisulfate [Plavix*] 75 mg PO DAILY 08/25/21 Memantine HCl [Namenda] 10 mg PO BID 08/25/21 Gabapentin [Neurontin] 400 mg PO TIDP PRN 05/03/23 Pantoprazole [Protonix Tab] 40 mg PO DAILY 05/03/23 Rosuvastatin Calcium [Crestor] 20 mg PO BEDTIME 05/03/23 Tramadol HCl [Ultram] 50 mg PO Q4HP PRN 05/03/23 - Past Medical/Surgical History Diabetic: Yes -: HLD -: Systolic CHF -: HTN -: DM II -: Dementia -: CKD III with Proteinuria (Dr. Obando/ Dr. Soriano) -: Thrombocytopenia -: PAD -: Pacer/Defib -: Back sX -: Hysterectomy -: Vascular Sx Psychosocial/ Personal History: Patient lives at home with family - Family History Mother Medical History: Hypertension Sister Medical History: Kidney disease Father Medical History: Heart disease Brother Medical History: Heart disease - Social History Smoking Status: Unknown if ever smoked Alcohol use: No CD- Drugs: No Caffeine use: Yes Place of Residence: Home Review of Systems 10-point ROS is otherwise unremarkable General: Weakness Musculoskeletal: Foot Pain (right) Physical Examination Temp Pulse Resp BP Pulse Ox 97.9 F 64 17 129/60 99 05/06/23 08:00 05/06/23 08:00 05/06/23 08:00 05/06/23 08:00 05/06/23 08:00 General: In no apparent distress, Oriented x3, Demented HEENT: Atraumatic, Normocephalic Respiratory: Clear to auscultation bilaterally, Normal air movement (on room air) Cardiovascular: Other (paced rhythm), Abnormal pulses (weak DP and PT pulses) Gastrointestinal: Normal bowel sounds, Soft and benign Integumentary: Tenderness/swelling (right 2nd toe) Laboratory Data - Reviewed Microbiology Data - Reviewed Imagings Data: - Reviewed Conclusions/Impression: Problem List Osteomyelitis of the Right 2nd toe Peripheral Arterial Disease Chronic Systolic Congestive Heart Failure Hx Pacemaker Chronic Kidney Disease stage III Diabetes Mellitus type II Hypertenstion Hyperlipidemia Thrombocytopenia, chronic Dementia Osteomyelitis of the Right 2nd toe - XR right foot 05/01: " Prominent diffuse osteopenia. Moderate calcaneal spurs. Bony destruction is seen involving the middle and distal phalanx of the second toe with soft tissue swelling compatible with osteomyelitis." - Currently on Cefepime and Vancomycin (started 05/02) - general surgery consulted, no surgical intervention at this time - PICC line placed 05/04 - No leukocytosis - Afebrile Recommendations - osteomyelitis left 2nd toe: Continue Vancomycin IV for 6 weeks (05/02-06/13) - PICC line in place - monitor for worsening s/s of infection such as increasing discoloration coloration of toe, foul odor, open wound. - PAD: patient's daughter reports she has follow up appointment with cardiovascular doctor as outpatient scheduled this week. - strict blood glucose control - continue supportive care Case discussed with Enedelia Levi
--- NOTE | 2023-05-06 11:50 | P.PN ---
Date of Service: 05/06/23 Subjective: PICC in place No acute events overnight working on dispo/HH ROS: 10 point ROS as noted above, otherwise negative Physical exam GEN: Alert, oriented, NAD HEENT: Normal conjunctiva, sclera anicteric CV: Regular rate and rhythm, no edema Pulm: Nonlabored respirations on room air ABD: Soft, nontender, nondistended MSK: No joint tenderness Integumentary: right second toe with swelling, darkened skin Neuro: Normal speech, normal affect Vitals reviewed Assessment: Osteomyelitis of the right second toe middle and distal phalanx PAD Chronic systolic congestive heart failure with pacemaker in place CKD 3 Diabetes mellitus type 2insulin-dependent Hypertension Hyperlipidemia Chronic thrombocytopenia Dementia Plan: Osteomyelitis of the right second toe middle and distal phalanx PAD X-ray shows suspected osteomyelitis, patient has pacemaker in place likely not a candidate for MRI Will consult general surgery, continue IV antibiotics vancomycin for 6 weeks total through 06/[address] Seen by general surgery ID consult to manage/follow abx No overlying wound currently During recent admission patient had arterial ultrasound of the right lower extremity performed which showed short segment occlusion of the right popliteal artery. Monophasic waveforms in the runoff vessels suggest some collateral flow. Patient was evaluated by cardiology during that admission who recommended no further peripheral vascular workup Recommend outpatient follow up with her vascular surgeon Dr. Doan-she has an appointment 05/06 if she is out of hospital Blood cultures obtained-pending, NGTD Chronic systolic congestive heart failure with pacemaker in place Family reports she was having some lower extremity edema but they had restarted her Lasix recently and has been improving Continue daily Lasix Continue other home medications once verified CKD 3 Renally dose medications Monitor renal function during hospitalization Sees Dr. Obando/Dr. Soriano-consult for any worsening Diabetes mellitus type 2insulin-dependent ACHS Accu-Chek, sliding scale insulin Hypertension Hyperlipidemia Continue home medications Chronic thrombocytopenia Platelets within normal limits at this time Monitor daily Continue aspirin, Plavix Hold subcu heparin if platelets less than 100 Dementia Continue home medications DVT PPX: Heparin subcu Code status: Full Discharge Plan: Home Plan to discharge in: 1-2 days Time Spent Managing Pts Care (In Minutes): 35
[2023-05-07] MEDS: VANCOMYCIN 1.5 GM in NA CHLORIDE 0.9% 500 ML IVPB SCH (01:46)
[2023-05-07 04:55] LABS: Absolute Eosinophils 0.2 K/uL (0-0.5); Absolute Monocytes 0.5 K/uL (0.1-1.3); Absolute Neutrophil 2.4 K/uL (1.8-8.0); Basophils % 0.9 % (0-1.3); Eosinophils % 3.9 % (0-4.4); Hematocrit 26.6 % (36.0-45.0); Hemoglobin 8.9 g/dL (12.0-15.0); Lymphocytes % 24.2 % (15.3-44.8); MCH 30.3 pg (27.0-35.0); MCHC 33.3 g/dL (32.0-36.0); MCV 90.9 fL (80-100); MPV 9.6 fL (7.6-11.3); Nucleated Red Blood Cells % 0.3 % (0-0); Platelets 139 thou/uL (152-406); RBC Red Blood Cell Count 2.93 M/uL (3.86-4.86); Red Cell Distribution Width 14.9 % (12.1-15.2)
[2023-05-07 05:13] LABS: Anion Gap 7.8 mEq/L (5.0-15.0); Potassium 3.8 mEq/L (3.5-5.1)
--- NOTE | 2023-05-07 09:15 | P.PN ---
Date of Service: 05/07/23 Chief Complaint: Osteomyelitis Subjective: In no apparent distress. No acute events overnight. Denies any new or worsening complaints at this time. Plan of care discussed with patient and daughter at bedside. Physical Examination Temp Pulse Resp BP Pulse Ox 98.1 F 64 16 142/59 H 96 05/07/23 08:00 05/07/23 08:37 05/07/23 08:00 05/07/23 08:37 05/07/23 08:00 General: In no apparent distress, Oriented x3, Demented HEENT: Atraumatic, Normocephalic Respiratory: Clear to auscultation bilaterally, Normal air movement. On room air. Cardiovascular: Paced rhythm. Abnormal pulses weak DP and PT pulse. Gastrointestinal: Normal bowel sounds, Soft and benign Integumentary: Tenderness/swellingright 2nd toe Laboratory Data - Reviewed Microbiology Data - Reviewed Imagings Data: - Reviewed Medications List: Reviewed Assessment and Plan Problem List Osteomyelitis of the Right 2nd toe Peripheral Arterial Disease Chronic Systolic Congestive Heart Failure Hx Pacemaker Chronic Kidney Disease stage III Diabetes Mellitus type II Hypertenstion Hyperlipidemia Thrombocytopenia, chronic Dementia Osteomyelitis of the Right 2nd toe - XR right foot 05/01: " Prominent diffuse osteopenia. Moderate calcaneal spurs. Bony destruction is seen involving the middle and distal phalanx of the second toe with soft tissue swelling compatible with osteomyelitis." - Currently on Cefepime and Vancomycin (started 05/02) - general surgery consulted, no surgical intervention at this time - PICC line placed 05/04 - No leukocytosis - Afebrile Recommendations - osteomyelitis left 2nd toe: Continue Vancomycin IV for 6 weeks (05/02-06/13) - PICC line in place - monitor for worsening s/s of infection such as increasing discoloration coloration of toe, foul odor, open wound. - PAD: patient's daughter reports she has follow up appointment with cardiovascular doctor as outpatient scheduled this week. - strict blood glucose control - continue supportive care Case discussed with Enedelia Levi
--- NOTE | 2023-05-07 09:43 | P.DS ---
Admission Date: 05/03/23 Discharge Date: 05/11/23 Disposition: DC HOME/HOME HEALTH CARE Discharge Condition: GOOD Reason for Admission: Osteomyelitis Brief History of Present Illness: Diagnosis Osteomyelitis of the right second toe middle and distal phalanx PAD Chronic systolic congestive heart failure with pacemaker in place CKD 3 Diabetes mellitus type 2insulin-dependent Hypertension Hyperlipidemia Chronic thrombocytopenia Dementia HPI 05/03/23 Sangita Hendrix is a 77-year-old female with history of chronic systolic congestive heart failure with pacemaker in place, CKD 3, insulin-dependent diabetes type 2, hypertension, hyperlipidemia, chronic thrombocytopenia, peripheral artery disease, dementia with recent admission for left hip fracture status post hemiarthroplasty 03/29 presents to the emergency department with chief complaint of right toe/foot pain. She reports she has been having ongoing pain in that foot and was seen by her primary care physician who ordered an x-ray. X-ray performed on 05/02/2023 showed bony destruction is seen involving the middle and distal phalanx of the second toe with soft tissue swelling compatible with osteomyelitis. Patient was referred to the hospital for further management. She was evaluated in the emergency department her labs were significant for white blood count 6.2 hemoglobin 10.4 hematocrit 31.8 creatinine 2.07 which is similar to her baseline C-reactive protein 9.64 blood cultures were obtained in the emergency department patient was started on vancomycin/cefepime. Patient need to be admitted for further evaluation management of osteomyelitis of the distal phalanx of the second toe. Hospital Course: Sangita Hendrix is a pleasant 77 year old female with a past medical history significant for chronic systolic congestive heart failure with pacemaker in place, CKD 3, insulin-dependent diabetes type 2, hypertension, hyperlipidemia, chronic thrombocytopenia, peripheral artery disease, dementia with recent admi ssion for left hip fracture status post hemiarthroplasty 03/29 who was admitted to the [facility] on 05/03/23 for osteomyelitis of right second toe. Patient was admitted to the hospital for osteomyelitis of the right second toe. She was evaluated by general surgery and infectious disease recommends 6 weeks total of IV antibiotics with vancomycin. The end date for her antibiotics will be 06/13. A PICC line was placed during her hospitalization. Home health with custodial and physical therapy was arranged and patient is stable for discharge at this time. Her white blood cell count remained within normal limits and her kidney function near baseline, creatinine at 1.84 at discharge. Blood cultures with no growth in 24 hours. Of note she does have some pretty significant peripheral arterial disease and not lower extremity, during her last admission she did have an ultrasound performed, results were provided to family for outpatient follow-up. Patient has a follow-up with her vascular surgeon on 05/08/2023. Results for ultrasound below. Right lower extremity U/S with doppler (04/17/23) FINDINGS: Color Doppler, grayscale, and spectral analysis was performed. Right common femoral artery has a triphasic waveform. The superficial femoral artery has a monophasic waveform. The proximal popliteal artery has a monophasic waveform and is ultimately occluded. Monophasic waveforms are present within the dorsalis pedis and posterior tibial arteries. Scattered areas of calcified plaque noted. 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 Monophasic waveforms in the runoff vessels suggest some collateral flow. On 05/07/23, Sangita was seen on morning rounds and deemed medically stable for discharge. Sangita was discharged with instructions to schedule follow-up appointments with PCP and nephrology. The patient and family members were given the opportunity to ask questions and reported no further questions. Furthermore, all questions were answered to the best of my ability. A copy of this discharge summary will be sent to the above providers to facilitate continuity of care. Today, I personally spent 50 minutes with Sangita, of which greater than 50% of the time was spent in patient education, counseling, and coordination of care as described above. Physical exam GEN: AAOx3, NAD, comfortable HEENT: Normal conjunctiva, sclera anicteric CV: RRR, S1 S2 present, no edema, systolic murmur Pulm: Nonlabored respirations on room air ABD: Soft on palpation, NT/ND MSK: No joint tenderness Integumentary: right second toe with swelling, darkened skin Neuro: Normal speech, normal affect Vital Signs/Physical Exam: Temp Pulse Resp BP Pulse Ox 98.1 F 64 16 142/59 H 96 05/07/23 08:00 05/07/23 08:37 05/07/23 08:00 05/07/23 08:37 05/07/23 08:00 Laboratory Data at Discharge: WBC 4.10 thou/uL (4.3-10.9) L 05/07/23 04:25 Hgb 8.9 g/dL (12.0-15.0) L 05/07/23 04:25 Hct 26.6 % (36.0-45.0) L 05/07/23 04:25 Plt Count 139 thou/uL (152-406) L 05/07/23 04:25 Sodium 140 mEq/L (136-145) 05/07/23 04:25 Potassium 3.8 mEq/L (3.5-5.1) 05/07/23 04:25 BUN 12 mg/dL (7-18) 05/07/23 04:25 Creatinine 1.83 mg/dL (0.55-1.02) H 05/07/23 04:25 Glucose 94 mg/dL (74-106) 05/07/23 04:25 Magnesium 1.8 mg/dL (1.6-2.4) 05/05/23 06:10 Total Bilirubin 0.3 mg/dL (0.2-1.0) 05/03/23 13:45 AST 24 U/L (15-37) 05/03/23 13:45 ALT 17 U/L (13-56) 05/03/23 13:45 Alkaline Phosphatase 122 U/L (45-117) H 05/03/23 13:45 Home Medications: Amiodarone HCl [Cordarone*] 1 tab PO DAILY 05/30/17 Furosemide 1 tab PO DAILY 05/30/17 Insulin Glargine,Hum.rec.anlog [Lantus] 20 unit SQ DAILY 05/30/17 Sacubitril/Valsartan [Entresto 24 mg-26 mg Tablet] 1 tab PO BID 05/30/17 carvediloL [Carvedilol] 1 tab PO BID 05/30/17 Clopidogrel Bisulfate [Plavix*] 75 mg PO DAILY 08/25/21 Memantine HCl [Namenda] 10 mg PO BID 08/25/21 Gabapentin [Neurontin*] 400 mg PO TIDP PRN 05/03/23 Pantoprazole [Protonix Tab*] 40 mg PO DAILY 05/03/23 Rosuvastatin Calcium [Crestor] 20 mg PO BEDTIME 05/03/23 Tramadol HCl [Ultram] 50 mg PO Q4HP PRN 05/03/23 Physician Discharge Instructions: Physician discharge instructions Patient was admitted to the hospital for osteomyelitis of the right second toe. She was evaluated by general surgery and infectious disease recommends 6 weeks total of IV antibiotics with vancomycin. The end date for her antibiotics will be 06/13. A PICC line was placed during her hospitalization. Home health with custodial and physical therapy was arranged and patient is stable for discharge at this time. Her white blood cell count remained within normal limits and her kidney function near baseline, creatinine at 1.84 at discharge. Blood cultures with no growth in 24 hours. Of note she does have some pretty significant peripheral arterial disease and not lower extremity, during her last admission she did have an ultrasound performed, results were provided to family for outpatient follow-up. Patient has a follow-up with her vascular surgeon on 05/08/2023. Results for ultrasound below. Continue home medications as prescribed with the addition of the IV vancomycin for the osteomyelitis Please follow-up with your primary care doctor on 05/08/2023 Please follow-up with your primary care doctor and application assistant in 1 to 2 weeks Right lower extremity U/S with doppler (04/17/23) FINDINGS: Color Doppler, grayscale, and spectral analysis was performed. Right common femoral artery has a triphasic waveform. The superficial femoral artery has a monophasic waveform. The proximal popliteal artery has a monophasic waveform and is ultimately occluded. Monophasic waveforms are present within the dorsalis pedis and posterior tibial arteries. Scattered areas of calcified plaque noted. 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 Monophasic waveforms in the runoff vessels suggest some collateral flow. Diet: Renal Activity: Fall precautions Followup: Gabe Caro MD [ACTIVE - CAN ADMIT] - YO GABRIEL [Primary Care Provider] - 05/08/23 Time spent managing pt's care (in minutes): 50
[2023-05-07 12:01] VITALS: BP 142/64; TEMP 98.3
--- NOTE | 2023-05-07 14:16 | EKG ---
Test Date: 2023-05-03 Test Time: 11:41:58 General Studies Program Chair: MB MEASUREMENT RESULTS: Intervals: Rate: 59 MI: 236 QRSD: 130 QT: 522 QTc: 516 Happy: P: 69 MI: 236 QRS: -43 T: 66 INTERPRETIVE STATEMENTS: Sinus bradycardia with 1st degree AV block Left axis deviation Nonspecific intraventricular block Abnormal ECG Compared to ECG 04/14/2023 11:09:34 Left-axis deviation now present Myocardial infarct finding no longer present Electronically Signed On 05-07-23 14:08:06 CDT by Lee Garza
== END 2023-05-07 15:39 | disposition home health service (06) | DRG 638 ==
LOC: ER 11:34 → ERHOLD 15:16 → 2ND 17:17
PROVIDERS: ADMIT Hospitalist; ATTEND Internal Medicine
PROC: 02HV33Z Insertion of Infusion Device into Superior Vena Cava, Percutaneous Approach (ICD-10-PCS; principal; 2023-05-05)
DX: E11.69 Type 2 diabetes mellitus with other specified complication (principal); I13.0 Hypertensive heart and chronic kidney disease with heart failure and stage 1 through stage 4 chronic kidney disease, or unspecified chronic kidney disease; I50.22 Chronic systolic (congestive) heart failure; M86.8X8 Other osteomyelitis, other site; N18.30 Chronic kidney disease, stage 3 unspecified; E11.22 Type 2 diabetes mellitus with diabetic chronic kidney disease; E11.51 Type 2 diabetes mellitus with diabetic peripheral angiopathy without gangrene; D69.6 Thrombocytopenia, unspecified; E78.5 Hyperlipidemia, unspecified; K21.9 Gastro-esophageal reflux disease without esophagitis; F03.90 Unspecified dementia, unspecified severity, without behavioral disturbance, psychotic disturbance, mood disturbance, and anxiety; Z88.5 Allergy status to narcotic agent; Z88.0 Allergy status to penicillin; Z88.8 Allergy status to other drugs, medicaments and biological substances; Z95.0 Presence of cardiac pacemaker; Z79.4 Long term (current) use of insulin; Z79.02 Long term (current) use of antithrombotics/antiplatelets; Z79.82 Long term (current) use of aspirin; Z79.899 Other long term (current) drug therapy; Z90.710 Acquired absence of both cervix and uterus
CPT/HCPCS: 36415; 71045; 80048; 80053; 80202; 82947; 83735; 85025; 86140; 87040; 93005; 96365; 96366; 96367; 99285; J0692; J1644; J7040; J7050

== ENCOUNTER → 2023-05-09 | Emergency (ER) | payer OTHER ==
[~2023-05-09] MED LIST: ALTEPLASE 2 MG/VIAL IV ONE
--- NOTE | 2023-05-09 21:03 | EDPHYS ---
Physician Documentation [facility] Name: Sangita Hendrix Age: 77 yrs Sex: Female : 1945 Arrival Date: 05/09/2023 Time: 19:57 Bed 10 Private MD: Kameron Chambers ED Physician Kunal Kellogg HPI: 05/08 20:13 This 77 yrs old Black Female presents to ER via Unassigned with complaints of Picc line sp4 problem. 20:33 77-year-old black female with history of extensive medical problems including sp4 gangrenous foot, presents with a right arm PICC line problem. Home health today noticed that both ports not flushing or drawing blood. Patient was sent to the emergency room for declotting the PICC line. . Historical: - Allergies: 20:21 Baclofen; km8 20:21 [place]; km8 20:21 PENICILLINS; km8 - PMHx: 20:21 BRADYCARDIA; CHF; Dementia; Diabetes - IDDM; GERD; hiatal hernia; Pacemaker; km8 - PSHx: 20:21 back sx; hip FX repair; hysterectomy; km8 - Immunization history:: Client reports receiving the 2nd dose of the Covid vaccine, Flu vaccine is up to date. - Social history:: Smoking status: Patient denies any tobacco usage or history of. Patient/guardian denies using alcohol, street drugs. - Family history:: not pertinent. ROS: 20:33 Constitutional: Negative for fever, chills, and weight loss, positive right arm PICC sp4 line problem. 20:33 All other systems are negative, Exam: 20:33 Constitutional: This is a well developed, well nourished patient who is awake, alert, sp4 and in no acute distress. Overweight female with poor mobility, ambulatory via wheelchair Head/Face: Normocephalic, atraumatic. Eyes: Pupils equal round and reactive to light, extra-ocular motions intact. Lids and lashes normal. Conjunctiva and sclera are not injected. Cornea within normal limits. Periorbital areas with no swelling, redness, or edema. ENT: Nares patent. No nasal discharge, no septal abnormalities noted. Tympanic membranes are normal and external auditory canals are clear. Oropharynx with no redness, swelling, or masses, exudates, or evidence of obstruction, uvula midline. Mucous membranes moist. Neck: Trachea midline, no thyromegaly or masses palpated, and no cervical lymphadenopathy. Supple, full range of motion without nuchal rigidity, or vertebral point tenderness. Chest/axilla: Normal chest wall appearance and motion. Nontender with no deformity. No lesions are appreciated. Cardiovascular: Regular rate and rhythm with a normal S1 and S2. No gallops, murmurs, or rubs. Normal PMI, no JVD. No pulse deficits. There is right upper arm PICC line that is not flushing. Double-lumen PICC line present on exam. Respiratory: Lungs have equal breath sounds bilaterally, clear to auscultation and percussion. No rales, rhonchi or wheezes noted. No increased work of breathing, no retractions or nasal flaring. Abdomen/GI: Soft, with normal bowel sounds. No distension or tympany. No guarding or rebound. No evidence of tenderness throughout. Back: No spinal tenderness. No costovertebral tenderness. Skin: Warm, dry with normal turgor. Normal color with no rashes, no lesions, and no evidence of cellulitis. MS/ Extremity: Pulses equal, no cyanosis. Neurovascular intact. Full, normal range of motion. Neuro: Awake and alert, GCS 15, oriented to person, place, time, and situation. Cranial nerves II-XII grossly intact. Motor strength 5/5 in all extremities. Sensory grossly intact. Psych: Awake, alert, with orientation to person, place and time. Behavior, mood, and affect are within normal limits Vital Signs: 20:16 BP 136 / 109; Pulse 65; Resp 18; Temp 97.9(O); Pulse Ox 100% on R/A; Weight 97.07 kg km8 (R); Height 5 ft. 4 in. (R); Pain 0/10; 20:16 Body Mass Index 36.73 (97.07 kg, 162.56 cm) [facility] 20:16 Pain Scale: Adult km [place] Coma Score: 20:33 Eye Response: spontaneous(4). Motor Response: obeys commands(6). Verbal Response: sp4 oriented(5). Total: 15. MDM: 20:15 Patient medically screened. sp4 21:00 Differential Diagnosis PICC line occlusion . Data reviewed: vital signs, nurses notes. sp4 ED course: Activase was used for PICC line flushing. PICC line is now flushing and drawing blood. Patient stable for discharge home. . Administered Medications: 21:01 Drug: Cathflo Activase IV Thrombolytics 2 mg IV Thrombolytics once; into each catheter vc1 lumen, may repeat once Route: IV Thrombolytics; 21:01 CANCELLED (Duplicate Order): cathflo activase2 mg IV Thrombolytics once; into each vc1 catheter lumen, may repeat once Disposition Summary: 05/09/23 21:02 Discharge Ordered Notes: Location: Home sp4 Problem: new sp4 Symptoms: have improved sp4 Condition: Stable sp4 Diagnosis - Acute PICC line occlusion, attention to PICC line sp4 Followup: sp4 - With: Private Physician - When: 7 - 10 days - Reason: Recheck today's complaints Discharge Instructions: - Discharge Summary Sheet sp4 - PICC Home Care Guide sp4 Forms: - Patient Portal Instructions sp4 Signatures: Ramila Quintero RN RN vc1 Kunal Kellogg MD MD sp4 Alethea Hernandez RN RN km8 Corrections: (The following items were deleted from the chart) 21:01 20:28 Cathflo Activase IV Thrombolytics 2 mg IV Thrombolytics once; into each catheter vc1 lumen, may repeat once ordered. sp4
--- NOTE | 2023-05-09 21:03 | ER ---
Nurse's Notes [facility] Name: Sangita Hendrix Age: 77 yrs Sex: Female : 1945 Arrival Date: 05/09/2023 Time: 19:57 Bed 10 Private MD: Kameron Chambers Diagnosis: Acute PICC line occlusion, attention to PICC line Presentation: 05/08 20:16 Chief complaint: Patient's son or daughter states: when checking her PICC line at 1830 km8 today, it wouldn't flush or pull blood back; denies pain. Coronavirus screen: Client denies travel out of the [place] in the last 14 days. Ebola Screen: No symptoms or risks identified at this time. Initial Sepsis Screen: Does the patient meet any 2 criteria? No. Patient's initial sepsis screen is negative. Does the patient have a suspected source of infection? No. Patient's initial sepsis screen is negative. Risk Assessment: Do you want to hurt yourself or someone else? Patient reports no desire to harm self or others. Onset of symptoms was May 09, 2023 at 18:30. 20:16 Method Of Arrival: Wheelchair km8 20:16 Acuity: MADISYN 3 km8 Triage Assessment: 20:16 General: Appears in no apparent distress. comfortable, Behavior is calm, cooperative, km8 appropriate for age. Pain: Denies pain. EENT: No signs and/or symptoms were reported regarding the EENT system. Neuro: Level of Consciousness is awake, alert, obeys commands, Oriented to person, place, situation. Cardiovascular: Denies chest pain, shortness of breath, Patient's skin is warm and dry. Respiratory: Airway is patent Respiratory effort is even, unlabored, Respiratory pattern is regular, symmetrical. GI: No signs and/or symptoms were reported involving the gastrointestinal system. : No signs and/or symptoms were reported regarding the genitourinary system. Derm: Skin is intact, is healthy with good turgor, Skin is dry, Skin is pink, warm \T\ dry. normal, Skin temperature is warm. Musculoskeletal: No signs and/or symptoms reported regarding the musculoskeletal system. Range of motion: intact in all extremities. Historical: - Allergies: 20:21 Baclofen; km8 20:21 [place]; km8 20:21 PENICILLINS; km8 - PMHx: 20:21 BRADYCARDIA; CHF; Dementia; Diabetes - IDDM; GERD; hiatal hernia; Pacemaker; km8 - PSHx: 20:21 back sx; hip FX repair; hysterectomy; km8 - Immunization history:: Client reports receiving the 2nd dose of the Covid vaccine, Flu vaccine is up to date. - Social history:: Smoking status: Patient denies any tobacco usage or history of. Patient/guardian denies using alcohol, street drugs. - Family history:: not pertinent. Screenin:01 [facility] ED Fall Risk Assessment (Adult) History of falling in the last 3 months, vc1 including since admission No falls in past 3 months (0 pts) Confusion or Disorientation No (0 pts) Intoxicated or Sedated No (0 pts) Impaired Gait No (0 pts) Mobility Assist Device Used No (0 pt) Altered Elimination No (0 pt) Score/Fall Risk Level 0 - 2 = Low Risk Oriented to surroundings, Maintained a safe environment, Educated pt \T\ family on fall prevention, incl call for assistance when getting out of bed. Abuse screen: Denies threats or abuse. Nutritional screening: No deficits noted. Tuberculosis screening: No symptoms or risk factors identified. Vital Signs: 20:16 BP 136 / 109; Pulse 65; Resp 18; Temp 97.9(O); Pulse Ox 100% on R/A; Weight 97.07 kg km8 (R); Height 5 ft. 4 in. (R); Pain 0/10; 20:16 Body Mass Index 36.73 (97.07 kg, 162.56 cm) km8 20:16 Pain Scale: Adult km8 [place] Coma Score: 20:33 Eye Response: spontaneous(4). Motor Response: obeys commands(6). Verbal Response: sp4 oriented(5). Total: 15. ED Course: 20:00 Patient arrived in ED. mr 20:00 Kameron Chambers is Private Physician. mr 20:12 Kunal Kellogg MD is Attending Physician. sp4 20:16 Arm band placed on right wrist. km8 20:20 Triage completed. km8 21:01 Ramila Quintero, ANAMARIA is Primary Nurse. vc1 21:02 No provider procedures requiring assistance completed. Patient did not have IV access vc1 during this emergency room visit. PT with PICC line prior to arrival. 21:10 Provided Education on: PICC care. vc1 Administered Medications: 21:01 Drug: Cathflo Activase IV Thrombolytics 2 mg IV Thrombolytics once; into each catheter vc1 lumen, may repeat once Route: IV Thrombolytics; 21:01 CANCELLED (Duplicate Order): cathflo activase2 mg IV Thrombolytics once; into each vc1 catheter lumen, may repeat once Medication: 21:02 VIS not applicable for this client. vc1 Outcome: 21:02 Discharge ordered by . maria teresa 21:02 Condition: improved vc1 21:03 Discharged to home via wheelchair, with family, vc1 21:03 Discharge instructions given to patient, family, Instructed on discharge instructions, follow up and referral plans. Demonstrated understanding of instructions, follow-up care, 21:11 Patient left the ED. vc1 Signatures: Erlinda Figueroa, Ramila Vilchis RN RN vc1 Kunal Kellogg MD MD sp4 Alethea Hernandez RN RN km8
[2023-05-09 21:32] VITALS: BP 136/109; TEMP 97.9; O2SAT 100
== END ==
LOC: ER 19:57
DX: T82.594A Other mechanical complication of infusion catheter, initial encounter (principal)
CPT/HCPCS: 92977; 99284; J2997

== ENCOUNTER → 2023-05-15 | Emergency (ER) | payer OTHER ==
[~2023-05-15] MED LIST changes: +WATER FOR INJ,STERILE 10 ML ONE
--- NOTE | 2023-05-15 17:22 | EDPHYS ---
Physician Documentation [facility] Name: Sangita Hendrix Age: 77 yrs Sex: Female : 1945 Arrival Date: 05/15/2023 Time: 15:56 Bed 9 Private MD: ED Physician Sukumar Correa HPI: 05/14 16:52 This 77 yrs old Black Female presents to ER via Wheelchair with complaints of Picc kb problem. 16:52 Pt is a 77 year old female who was brought in by family for a PICC line port that will kb not flush. Family states the nurse kisha blood on Saturday and did not flush the line and they haven't been able to flush it since. States the patient is getting IV antibiotics every 72 hours and they were able to give the dose yesterday through the purple port, but wanted to get the other port unclogged. Pt has no complaints. Historical: - Allergies: 16:14 Baclofen; hb 16:14 [place]; hb 16:14 PENICILLINS; hb - PMHx: 16:14 BRADYCARDIA; CHF; Dementia; Diabetes - IDDM; GERD; hiatal hernia; Pacemaker; hb - PSHx: 16:14 back sx; hip FX repair; hysterectomy; hb - Immunization history:: Adult Immunizations up to date. - Social history:: Smoking status: Patient denies any tobacco usage or history of. ROS: 16:52 Constitutional: As per HPI kb Exam: 16:52 Constitutional: This is a well developed, well nourished patient who is awake, alert, kb and in no acute distress. Head/Face: Normocephalic, atraumatic. ENT: Moist Mucous membranes Cardiovascular: Regular rate Respiratory: Respirations even and unlabored. No increased work of breathing. Talking in full sentences Skin: Warm, dry with normal turgor. Normal color. MS/ Extremity: Pulses equal, no cyanosis. Neurovascular intact. Full, normal range of motion. Neuro: Awake and alert, GCS 15, oriented to person, place, time, and situation. Moves all extremities. Normal gait. 16:52 Musculoskeletal/extremity: PICC line in right upper extremity. Dressing dry and intact, site without erythema or swelling. Vital Signs: 16:00 BP 136 / 86; Pulse 76; Resp 16; Temp 97.5(TE); Pulse Ox 100% on R/A; Weight 97.52 kg; hb Height 5 ft. 4 in. ; Pain 0/10; 16:30 BP 142 / 78; Pulse 71; Resp 16; Pulse Ox 100% on R/A; me1 16:30 BP 134 / 68; Pulse 70; Resp 16; Temp 98.7; Pulse Ox 97% on R/A; me1 16:00 Body Mass Index 36.90 (97.52 kg, 162.56 cm) hb 16:00 Pain Scale: Adult hb MDM: 15:59 Patient medically screened. kb 16:54 Differential Diagnosis PICC line problem. Data reviewed: vital signs, nurses notes. kb Historians other than the Patient: Daughter/Son: daughter. Counseling: I had a detailed discussion with the patient and/or guardian regarding the historical points, exam findings, and any diagnostic results supporting the discharge/admit diagnosis, the need for outpatient follow up, a family practitioner, to return to the emergency department if symptoms worsen or persist or if there are any questions or concerns that arise at home. Administered Medications: 16:37 Drug: Cathflo Activase IV Thrombolytics 2 mg IV Thrombolytics once; into each catheter me1 lumen, may repeat once Route: IV Thrombolytics; 17:19 Follow up: Response: No adverse reaction; Other; effective. Able to flush and get blood me1 return from both lumens of PICC to LUE. 17:46 Follow up: Response: No adverse reaction me1 Disposition Summary: 05/15/23 17:22 Discharge Ordered Notes: Location: Home kb Condition: Stable kb Diagnosis - Encounter for PICC line management kb Followup: kb - With: Emergency Department - When: As needed - Reason: Worsening of condition Followup: kb - With: Private Physician - When: 2 - 3 days - Reason: Recheck today's complaints, Continuance of care, Re-evaluation by your physician Discharge Instructions: - Discharge Summary Sheet kb - PICC Home Care Guide kb Forms: - Medication Reconciliation Form kb - Thank You Letter kb - Antibiotic Education kb - Prescription Opioid Use kb - Patient Portal Instructions kb - Leadership Thank You Letter kb Signatures: Alesia Falk FNP-C FNP-Harini Zazueta RN RN Stephanie Valencia RN RN me1
--- NOTE | 2023-05-15 17:22 | ER ---
Nurse's Notes [facility] Name: Sangita Hendrix Age: 77 yrs Sex: Female : 1945 Arrival Date: 05/15/2023 Time: 15:56 Bed 9 Private MD: Diagnosis: Encounter for PICC line management Presentation: 05/14 16:00 Chief complaint: RUE PICC clogged. Coronavirus screen: At this time, the client does hb not indicate any symptoms associated with coronavirus-19. Ebola Screen: No symptoms or risks identified at this time. Initial Sepsis Screen: Does the patient meet any 2 criteria? No. Patient's initial sepsis screen is negative. Does the patient have a suspected source of infection? No. Patient's initial sepsis screen is negative. Risk Assessment: Do you want to hurt yourself or someone else? Patient reports no desire to harm self or others. Onset of symptoms was May 15, 2023. 16:00 Method Of Arrival: Wheelchair hb 16:00 Acuity: MADISYN 4 hb Triage Assessment: 16:14 General: Appears in no apparent distress. Behavior is calm, cooperative. Pain: Denies hb pain. Neuro: Level of Consciousness is awake, alert, obeys commands, Oriented to person, place, time, situation. Cardiovascular: Patient's skin is warm and dry. Respiratory: Respiratory effort is even, unlabored, Respiratory pattern is regular, symmetrical. Historical: - Allergies: 16:14 Baclofen; hb 16:14 [place]; hb 16:14 PENICILLINS; hb - PMHx: 16:14 BRADYCARDIA; CHF; Dementia; Diabetes - IDDM; GERD; hiatal hernia; Pacemaker; hb - PSHx: 16:14 back sx; hip FX repair; hysterectomy; hb - Immunization history:: Adult Immunizations up to date. - Social history:: Smoking status: Patient denies any tobacco usage or history of. Screenin:15 [facility] ED Fall Risk Assessment (Adult) History of falling in the last 3 months, me1 including since admission No falls in past 3 months (0 pts) Confusion or Disorientation No (0 pts) Intoxicated or Sedated No (0 pts) Impaired Gait Yes (1 pt) Mobility Assist Device Used Yes (1 pt) Altered Elimination No (0 pt) Score/Fall Risk Level 0 - 2 = Low Risk Maintained a safe environment, Provided non-skid footwear, Hourly rounding (assess needs \\T\\ fall precautionary measures) done. Abuse screen: Denies threats or abuse. Nutritional screening: No deficits noted. Tuberculosis screening: No symptoms or risk factors identified. Assessment: 16:15 General: Appears comfortable, well groomed, well developed, well nourished, Behavior is me1 calm, cooperative, appropriate for age, Reports PICC line to [facility] is "clogged". Sent by Pain: Denies pain. Neuro: Level of Consciousness is awake, alert, obeys commands, Oriented to person, place, time, situation, Appropriate for age. Cardiovascular: Patient's skin is warm and dry. Respiratory: Airway is patent Respiratory effort is even, unlabored, Respiratory pattern is regular, symmetrical. GI: No deficits noted. : No deficits noted. Derm: Reports wound on foot. 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 Vital Signs: 16:00 BP 136 / 86; Pulse 76; Resp 16; Temp 97.5(TE); Pulse Ox 100% on R/A; Weight 97.52 kg; hb Height 5 ft. 4 in. ; Pain 0/10; 16:30 BP 142 / 78; Pulse 71; Resp 16; Pulse Ox 100% on R/A; me1 16:30 BP 134 / 68; Pulse 70; Resp 16; Temp 98.7; Pulse Ox 97% on R/A; me1 16:00 Body Mass Index 36.90 (97.52 kg, 162.56 cm) hb 16:00 Pain Scale: Adult hb ED Course: 15:59 Patient arrived in ED. ae5 15:59 Alesia Falk FNP-C is PHCP. kb 15:59 Sukumar Correa MD is Attending Physician. kb 16:13 Triage completed. hb 16:14 Arm band placed on. hb 16:15 Patient has correct armband on for positive identification. Bed in low position. Call me1 light in reach. Side rails up X2. Provided Education on: POC. Verbalized understanding. . 16:15 No provider procedures requiring assistance completed. Accessed purple port on double me1 lumen picc line will flush with some resistance, unable to get blood return. Red port will give blood return and flush with no difficulty. . 16:30 Eddleman, Stephanie, RN is Primary Nurse. me1 17:24 Flushed right PICC line NS 10 ml to each lumen. Able to get blood return from both me1 lumens prior to flushing. 17:[address], clamped, capped and dressing is clean, dry and intact. me1 Administered Medications: 16:37 Drug: Cathflo Activase IV Thrombolytics 2 mg IV Thrombolytics once; into each catheter me1 lumen, may repeat once Route: IV Thrombolytics; 17:19 Follow up: Response: No adverse reaction; Other; effective. Able to flush and get blood me1 return from both lumens of PICC to LUE. 17:46 Follow up: Response: No adverse reaction me1 Medication: 16:15 VIS not applicable for this client. me1 Intake: Outcome: 17:22 Discharge ordered by . es 17:43 [place]charged to [place] via wheelchair, [place], [facility]:43 Condition: stable 17:43 Discharge instructions given to patient, family, Instructed on discharge instructions, follow up and referral plans. PICC line care Demonstrated understanding of instructions, follow-up care, PICC line care. 17:45 Patient left the ED. ok1 Signatures: Alesia Falk, DIE REPAIRER TRIMMER DIES-C DIE REPAIRER TRIMMER DIES-Ckb Harini Beauchamp RN RN Stephanie Valencia, RN RN me1 Vinita Nolan ae5 Corrections: (The following items were deleted from the chart) 16:14 16:00 BP 136 / 86; Pulse 76bpm; Resp 16bpm; Pulse Ox 100% RA; Temp 97.5F Temporal; Pain hb 0/10, Adult; hb
[2023-05-15 18:29] VITALS: BP 134/68; TEMP 98.7; O2SAT 97
== END ==
LOC: ER 15:56
DX: Z45.2 Encounter for adjustment and management of vascular access device (principal)
CPT/HCPCS: J2997

== ENCOUNTER 2023-05-17 15:46 | Inpatient (IN) | payer OTHER ==
[2023-05-17 16:24] LABS: Absolute Eosinophils 0.1 K/uL (0-0.5); Absolute Lymphocytes (CBC) 0.8 K/uL (0.7-4.9); Absolute Monocytes 0.8 K/uL (0.1-1.3); Absolute Neutrophil 3.6 K/uL (1.8-8.0); Basophils % 0.3 % (0-1.3); Eosinophils % 1.9 % (0-4.4); Hemoglobin 8.5 g/dL (12.0-15.0); MCH 29.8 pg (27.0-35.0); MCHC 32.8 g/dL (32.0-36.0); MPV 8.9 fL (7.6-11.3); Monocytes % 14.5 % (3.3-12.3); Neutrophils % 68.3 % (41.7-73.7); Platelets 146 thou/uL (152-406); RBC Red Blood Cell Count 2.86 M/uL (3.86-4.86); Red Cell Distribution Width 15.1 % (12.1-15.2)
[2023-05-17 16:45] LABS: Albumin 2.7 g/dL (3.4-5.0); Albumin/Globulin Ratio 0.7 (1.1-1.8); Anion Gap 13.5 mEq/L (5.0-15.0); Bilirubin Total 0.3 mg/dL (0.2-1.0); Globulin 3.7 g/dL (2.3-3.5); Potassium 3.5 mEq/L (3.5-5.1); Protein, Total 6.4 g/dL (6.4-8.2)
--- NOTE | 2023-05-17 17:02 | ER ---
Nurse's Notes [facility] Name: Sangita Hendrix Age: 77 yrs Sex: Female : 1945 Arrival Date: 05/17/2023 Time: 15:46 Bed 19 Private MD: Diagnosis: Acute kidney failure, unspecified;Vancomycin toxicity Presentation: 05/16 16:03 Chief complaint: Patient's son or daughter states: they were called to come to the ER ap3 for high vanc trough levels. patient presents to the ED with a left upper arm PICC level. Coronavirus screen: At this time, the client does not indicate any symptoms associated with coronavirus-19. Ebola Screen: No symptoms or risks identified at this time. Initial Sepsis Screen: Does the patient meet any 2 criteria? No. Patient's initial sepsis screen is negative. Does the patient have a suspected source of infection? No. Patient's initial sepsis screen is negative. Risk Assessment: Do you want to hurt yourself or someone else? Patient reports no desire to harm self or others. Onset of symptoms is unknown. 16:03 Method Of Arrival: Wheelchair ap3 16:03 Acuity: MADISYN 3 ap3 Triage Assessment: 16:05 General: Appears in no apparent distress. Behavior is calm, cooperative, appropriate ap3 for age. Pain: Denies pain. Neuro: Level of Consciousness is awake, alert, obeys commands, Oriented to person, place, time, situation. Cardiovascular: Patient's skin is warm and dry. Respiratory: Airway is patent Respiratory effort is even, unlabored, Respiratory pattern is regular, symmetrical. Historical: - Allergies: 16:05 Baclofen; ap3 16:05 [place]; ap3 16:05 PENICILLINS; ap3 - PMHx: 16:05 BRADYCARDIA; CHF; Dementia; Diabetes - IDDM; GERD; hiatal hernia; Pacemaker; ap3 - PSHx: 16:05 back sx; hip FX repair; hysterectomy; ap3 - Immunization history:: Client reports receiving the 2nd dose of the Covid vaccine. - Social history:: Smoking status: Patient denies any tobacco usage or history of. Screenin:18 [facility] ED Fall Risk Assessment (Adult) History of falling in the last 3 months, cp4 including since admission No falls in past 3 months (0 pts) Confusion or Disorientation No (0 pts) Intoxicated or Sedated No (0 pts) Impaired Gait No (0 pts) Mobility Assist Device Used No (0 pt) Altered Elimination No (0 pt) Score/Fall Risk Level 0 - 2 = Low Risk Oriented to surroundings, Maintained a safe environment, Assessed \T\ reinforced patient's understanding of fall precautions, Hourly rounding (assess needs \T\ fall precautionary measures) done. Abuse screen: Denies threats or abuse. Nutritional screening: No deficits noted. Tuberculosis screening: No symptoms or risk factors identified. Assessment: 16:18 General: Appears in no apparent distress. Behavior is calm, cooperative, appropriate cp4 for age. Pain: Denies pain. Vital Signs: 16:03 BP 158 / 59; Pulse 68; Resp 18; Temp 97.7; Pulse Ox 100% ; Weight 97.07 kg; ap3 20:01 BP 147 / 59; Pulse 65; Resp 16; Temp 98; Pulse Ox 99% on R/A; rv ED Course: 15:48 Patient arrived in ED. ra3 15:49 Alesia Falk FNP-C is [facility]. kb 15:49 Andrea Baig MD is Attending Physician. kb 15:56 Caty Ayala is Primary Nurse. cp4 16:05 Triage completed. ap3 16:06 Arm band placed on right wrist. ap3 16:18 Bed in low position. Call light in reach. Side rails up X2. cp4 16:18 No provider procedures requiring assistance completed. Accessed PICC line. Clean \T\ dry. cp4 Dressing intact. Good blood return. Flushes easily. 17:01 Bruce Baig MD is Hospitalizing Provider. kb 20:00 Patient admitted, IV remains in place. rv 20:55 Report received from ANAMARIA Ayala. ha1 05/17 07:24 Primary Nurse role handed off by Caty Ayala bp 07:24 Wilton Tripp, RN is Primary Nurse. bp 20:00 Provided Education on: need for admit. pf1 Administered Medications: 05/16 17:46 Drug: NS 0.9% IV 500 ml IV at bolus once Route: IV; Rate: bolus; Site: right upper arm; cp4 18:42 Follow up: Response: No adverse reaction; IV Status: Completed infusion cp4 18:42 Drug: NS 0.9% IV 1000 ml IV at 75 ml/hr continuous Route: IV; Rate: 75 ml/hr; Site: cp4 right upper arm; 20:00 Follow up: IV Status: Infusion continued upon admission rv Medication: 16:18 VIS not applicable for this client. cp4 Outcome: 17:01 Decision to Hospitalize by Provider. kb 20:00 Admitted to ER Hold. Please see [facility] for further documentation. rv 20:00 Condition: stable 20:00 Instructed on the need for admit, 05/17 20:08 Patient left the ED. pf1 Signatures: Alesia Falk, GROUND INSTRUCTOR BASIC-C GROUND INSTRUCTOR BASIC-CkWilton Mishra, RN RN bp Nafisa Zacarias RN RN ap3 Nile Gil RN RN rv Noreen Morgan RN RN Jessie Ovalle RN RN pf1 Caty Ayala cp4 Kerry Sethi
--- NOTE | 2023-05-17 17:02 | EDPHYS ---
Physician Documentation [facility] Name: Sangita Hendrix Age: 77 yrs Sex: Female : 1945 Arrival Date: 05/17/2023 Time: 15:46 Bed 19 Private MD: ED Physician Andrea Baig HPI: 05/16 16:00 This 77 yrs old Black Female presents to ER via Unassigned with complaints of elevated kb vancomycin trough. 16:00 Pt is a 77 year old female who was brought in for elevated vancomycin trough level. kb States she had blood work today and the pharmacist called and told her to come to the ER for evaluation because it could do harm to the kidneys. Pt has no complaints. Historical: - Allergies: 16:05 Baclofen; ap3 16:05 [place]; ap3 16:05 PENICILLINS; ap3 - PMHx: 16:05 BRADYCARDIA; CHF; Dementia; Diabetes - IDDM; GERD; hiatal hernia; Pacemaker; ap3 - PSHx: 16:05 back sx; hip FX repair; hysterectomy; ap3 - Immunization history:: Client reports receiving the 2nd dose of the Covid vaccine. - Social history:: Smoking status: Patient denies any tobacco usage or history of. ROS: 16:02 Constitutional: As per HPI kb Exam: 16:02 Constitutional: This is a well developed, well nourished patient who is awake, alert, kb and in no acute distress. Head/Face: Normocephalic, atraumatic. ENT: Moist Mucous membranes Cardiovascular: Regular rate Respiratory: Respirations even and unlabored. No increased work of breathing. Talking in full sentences Abdomen/GI: Soft, non-tender. No distention Skin: Warm, dry with normal turgor. Normal color. MS/ Extremity: Pulses equal, no cyanosis. Neurovascular intact. Full, normal range of motion. Neuro: Awake and alert, GCS 15, oriented to person, place, time, and situation. Moves all extremities. Vital Signs: 16:03 BP 158 / 59; Pulse 68; Resp 18; Temp 97.7; Pulse Ox 100% ; Weight 97.07 kg; ap3 20:01 BP 147 / 59; Pulse 65; Resp 16; Temp 98; Pulse Ox 99% on R/A; rv MDM: 15:49 Patient medically screened. kb 16:03 Data reviewed: vital signs, nurses notes. kb 17:00 Differential Diagnosis acute renal failure, abnormal electrolytes, vancomycin toxicity. kb Consideration of Admission/Observation Patient was admitted/placed on observation. Escalation of care including admission/observation considered. Management of patient was discussed with the following: Hospitalist: Hospitalist team, pt accepted for admission under Dr Baig. Historians other than the Patient: Daughter/Son: daughter. Counseling: I had a detailed discussion with the patient and/or guardian regarding the historical points, exam findings, and any diagnostic results supporting the discharge/admit diagnosis, lab results, radiology results, the need for further work-up and treatment in the hospital. 05/16 15:58 Order name: CBC with Diff; Complete Time: 16:26 kb 05/16 15:58 Order name: CMP; Complete Time: 16:48 kb 05/16 16:00 Order name: Vancomycin,Trough; Complete Time: 16:48 kb 05/16 21:48 Order name: Glucose, Ancillary Testing; Complete Time: 21:50 EDMS 05/17 02:20 Order name: CBC with Automated Diff EDMS 05/17 02:36 Order name: Basic Metabolic Panel EDMS 05/17 02:36 Order name: Magnesium EDMS 05/17 07:39 Order name: Glucose, Ancillary Testing EDMS 05/17 11:31 Order name: Glucose, Ancillary Testing EDMS 05/17 16:51 Order name: Glucose, Ancillary Testing EDMS 05/16 17:33 Order name: Renal Ultrasound-Complete; Complete Time: 18:21 EDMS Administered Medications: 17:46 Drug: NS 0.9% IV 500 ml IV at bolus once Route: IV; Rate: bolus; Site: right upper arm; cp4 18:42 Follow up: Response: No adverse reaction; IV Status: Completed infusion cp4 18:42 Drug: NS 0.9% IV 1000 ml IV at 75 ml/hr continuous Route: IV; Rate: 75 ml/hr; Site: [facility] right upper arm; 20:00 Follow up: IV Status: Infusion continued upon admission rv Disposition Summary: 05/17/23 17:01 Hospitalization Ordered Notes: Hospitalization Status: Inpatient Admission kb Provider: Bruce Baig Condition: Stable kb Problem: new kb Symptoms: are unchanged kb Bed/Room Type: Standard kb Location: Telemetry/MedSurg (Inpatient)(05/18/23 17:21) eb Room Assignment: 205(05/18/23 17:21) eb Diagnosis - Acute kidney failure, unspecified kb - Vancomycin toxicity kb Forms: - Medication Reconciliation Form kb - SBAR form kb - Leadership Thank You Letter kb Addendum: 05/19/2023 21:02 Co-signature as Attending Physician, Andrea Baig MD I reviewed the patient's care r n provided by the Advanced Practice Provider and agree with the diagnosis and treatment plan. Signatures: Dispatcher [employer] EDMS Alesia Falk, DINING ROOM MAID-C DINING ROOM MAID-Ckb Andrea Baig MD MD rn Attema, Lee, DINING ROOM MAID-C DINING ROOM MAID-Cla1 Harmony Gaitan RN RN Nafisa Posadas RN RN Emma Jerry Christina cp4 Vicente, Ronaldo RN rv Corrections: (The following items were deleted from the chart) 05/16 16:03 16:02 Constitutional: This is a well developed, well nourished patient who is awake, kb alert, and in no acute distress. Head/Face: Normocephalic, atraumatic. ENT: Moist Mucous membranes Cardiovascular: Regular rate Respiratory: Respirations even and unlabored. No increased work of breathing. Talking in full sentences Abdomen/GI: Soft, non-tender. No distention Skin: Warm, dry with normal turgor. Normal color. MS/ Extremity: Pulses equal, no cyanosis. Neurovascular intact. Full, normal range of motion. Neuro: Awake and alert, GCS 15, oriented to person, place, time, and situation. Moves all extremities. Normal gait. kb 19:05 17:01 Telemetry/MedSurg (Inpatient) cg 19:05 17:01 kb cg 05/17 17:21 05/16 19:05 [facility] ER HOLD cg eb 05/17 17:05/16 19:05 ERHOLD- cg eb
--- NOTE | 2023-05-17 17:39 | P.HP ---
Certification for Inpatient Patient admitted to: Inpatient With expected LOS: >2 Midnights Patient will require the following post-hospital care: None Practitioner: I am a practitioner with admitting privileges, knowledge of patient current condition, hospital course, and medical plan of care. Services: Services provided to patient in accordance with Admission requirements found in Title 42 Section 412.3 of the Code of Federal Regulations Patient History Date of Service: 05/17/23 Reason for admission: TERRY History of Present Illness: 77-year-old female with history of CKD 3, PAD, chronic systolic congestive heart failure, insulin-dependent diabetes mellitus type 2, hypertension, hyperlipidemia, chronic thrombocytopenia, dementia presents emergency department with chief complaint of abnormal labs. She was seen here at our hospital for osteomyelitis admitted on 05/03/2023 and discharged on 05/07/2023. She was started on home antibiotics with vancomycin 1 g every 36 hours with orders for twice weekly CBC, BMP and Vanco troughs. Family reports some issues with obtaining lab with home health, were instructed to come to the emergency department as her bank trough was significantly elevated. Patient was evaluated in the emergency department today and her labs were significant for hemoglobin of 8.5 hematocrit 26 platelet 146 creatinine 5.66 GFR 7 glucose 145 alk phos 120 vancomycin trough 45. At discharge creatinine was 1.83 Family does endorse some poor appetite, she had taken 1 Advil for pain since discharge, was constipated and took some lactulose did have 2 large volume loose stools yesterday. Also does take Entresto, Lasix at home for CHF but does not appear overloaded at this time. Patient to be admitted for acute kidney injury, vancomycin toxicity. Renal ultrasound ordered and pending. Allergies Penicillins Allergy (Mild, Verified 03/29/14 22:36) Hives/Rash baclofen Allergy (Verified 05/03/23 20:09) Hives/Rash hydrocodone Allergy (Verified 05/03/23 20:09) Hives/Rash No Known Allergie Allergy (Uncoded 11/11/15 08:18) Unknown Home Medications: Amiodarone HCl [Cordarone*] 1 tab PO DAILY 05/30/17 Furosemide 1 tab PO DAILY 05/30/17 Insulin Glargine,Hum.rec.anlog [Lantus] 20 unit SQ DAILY 05/30/17 Sacubitril/Valsartan [Entresto 24 mg-26 mg Tablet] 1 tab PO BID 05/30/17 carvediloL [Carvedilol] 1 tab PO BID 05/30/17 Clopidogrel Bisulfate [Plavix*] 75 mg PO DAILY 08/25/21 Memantine HCl [Namenda] 10 mg PO BID 08/25/21 Gabapentin [Neurontin*] 400 mg PO TIDP PRN 05/03/23 Pantoprazole [Protonix Tab*] 40 mg PO DAILY 05/03/23 Rosuvastatin Calcium [Crestor] 20 mg PO BEDTIME 05/03/23 Tramadol HCl [Ultram] 50 mg PO Q4HP PRN 05/03/23 - Past Medical/Surgical History Diabetic: Yes -: HLD -: Systolic CHF -: HTN -: DM II -: Dementia -: CKD III with Proteinuria (Dr. Obando/ Dr. Soriano) -: Thrombocytopenia -: PAD -: Pacer/Defib -: Back sX -: Hysterectomy -: Vascular Sx Psychosocial/ Personal History: Patient lives at home with family - Family History Mother -: Hypertension Sister -: Kidney disease Father -: Heart disease Brother -: Heart disease - Social History Smoking Status: Never smoker Alcohol use: No CD- Drugs: No Caffeine use: Yes Place of Residence: Home Review of Systems 10-point ROS is otherwise unremarkable Musculoskeletal: Foot Pain Physical Examination - Physical Exam General: Alert, In no apparent distress, Oriented x3 HEENT: Atraumatic, PERRLA, Mucous membr. moist/pink Neck: Supple, 2+ carotid pulse no bruit, No LAD Respiratory: Clear to auscultation bilaterally, Normal air movement Cardiovascular: Regular rate/rhythm, Normal S1 S2 Gastrointestinal: Normal bowel sounds, No tenderness Musculoskeletal: No tenderness Integumentary: No rashes Neurological: Normal speech, Normal strength at 5/5 x4 extr, Normal tone, Normal affect - Studies Laboratory Data (last 24 hrs) 05/17/23 05/17/23 16:16 16:16 WBC 5.20 Hgb 8.5 L Hct 26.0 L Plt Count 146 L Sodium 136 Potassium 3.5 BUN 27 H Creatinine 5.66 H Glucose 145 H Total Bilirubin 0.3 AST 19 ALT 14 Alkaline Phosphatase 120 H Assessment and Plan - Plan Assessment: Acute kidney injury with underlying CKD 3 Vancomycin toxicity Osteomyelitis of the right second toe middle and distal phalanx PAD Chronic systolic congestive heart failure with pacemaker in place Diabetes mellitus type 2insulin-dependent Hypertension Hyperlipidemia Chronic thrombocytopenia Dementia Plan: Acute kidney injury with underlying CKD 3 Vancomycin toxicity Family reports some difficulty in obtaining outpatient labs with home health Unclear values of previous chemistries/Vanc trough as outpatient Hold vancomycin Will obtain renal ultrasound, give IV fluids Will bolus 500 cc NS now, continue with NS at 75 an hour overnight Will need to be careful with IV fluids given chronic systolic congestive heart failure Hold Entresto, Lasix for now Appreciate further input from the nephrology Osteomyelitis of the right second toe middle and distal phalanx PAD Patient has PICC line in place, was supposed to receive antibioticsvancomycin through 06/13 for osteomyelitis Will hold vancomycin and treat acute kidney injury Consult ID for further recommendations regarding osteomyelitis Chronic systolic congestive heart failure with pacemaker in place Does not appear grossly overloaded at this time Will need to hold Entresto, Lasix given significant acute kidney injury Diabetes mellitus type 2insulin-dependent ACHS Accu-Chek, sliding scale insulin Hypertension Hyperlipidemia Continue home medications Chronic thrombocytopenia Platelets within normal limits at this time Monitor daily Continue aspirin, Plavix Hold subcu heparin if platelets less than 100 Dementia Continue home medications DVT PPX: Heparin subcu Code status: Full Discharge Plan: Home Discharge Plan: Home Plan to discharge in: Greater than 2 days - Advance Directives Does patient have a Living Will: Yes Does patient have a Durable POA for Healthcare: Yes - Code Status/Comfort Care Code Status Assessed: Yes (Full code) Critical Care: No Time Spent Managing Pts Care (In Minutes): 70
[2023-05-17] MEDS ORDERED: NA CHLORIDE 0.9% 1,000 ML ONE (17:40)
--- NOTE | 2023-05-17 18:19 | RAD REPORT ---
EXAM DESCRIPTION: US - Renal Ultrasound-Complete - 05/17/2023 6:02 pm CLINICAL HISTORY: acute renal failure Flank pain COMPARISON: <Comparisons> FINDINGS: Both kidneys are mildly echogenic. The right kidney measures 9.5 x 4.1 x 3.7 cm. No hydronephrosis, focal mass or perinephric fluid. The left kidney measures 8.8 x 4.4 x 4.0 cm. No hydronephrosis, focal mass or perinephric fluid. Smal l benign cyst. The urinary bladder is incompletely distended without gross abnormality seen. IMPRESSION: Echogenic kidneys bilaterally compatible with underlying medical renal disease.
[2023-05-17] MEDS ORDERED: TRAMADOL HCL 50 MG TAB PO PRN (19:16)
[2023-05-17 20:08] VITALS: BMI 37.9
[2023-05-17] MEDS: NA CHLORIDE 0.9% 1,000 ML IV SCH (20:10)
[2023-05-17] MEDS: HEPARIN 5000 UNIT/ML 1 ML VIAL SQ SCH (21:00)
[2023-05-17] MEDS: ACETAMINOPHEN 325 MG TABLET PO PRN (21:00)
[2023-05-17] MEDS: INSULIN REGULAR (HUMAN) 100 UNIT/ML SQ SCH (21:00)
[2023-05-17] MEDS ORDERED: ACETAMINOPHEN 325 MG TABLET ONE (21:37)
[2023-05-17] MEDS ORDERED: HEPARIN 5000 UNIT/ML 1 ML VIAL ONE (21:37)
[2023-05-18 02:20] LABS: Absolute Basophils 0.1 K/uL (0-0.5); Absolute Eosinophils 0.1 K/uL (0-0.5); Absolute Lymphocytes (CBC) 0.8 K/uL (0.7-4.9); Absolute Monocytes 0.6 K/uL (0.1-1.3); Absolute Neutrophil 2.7 K/uL (1.8-8.0); Basophils % 1.3 % (0-1.3); Eosinophils % 2.5 % (0-4.4); Hemoglobin 8.2 g/dL (12.0-15.0); Lymphocytes % 19.6 % (15.3-44.8); MCH 29.5 pg (27.0-35.0); MCHC 32.7 g/dL (32.0-36.0); MCV 90.1 fL (80-100); MPV 9.7 fL (7.6-11.3); Monocytes % 13.6 % (3.3-12.3); Platelets 141 thou/uL (152-406); RBC Red Blood Cell Count 2.78 M/uL (3.86-4.86); Red Cell Distribution Width 15.5 % (12.1-15.2)
[2023-05-18 02:36] LABS: Anion Gap 11.6 mEq/L (5.0-15.0); Magnesium 1.8 mg/dL (1.6-2.4); Potassium 3.6 mEq/L (3.5-5.1)
[2023-05-18] MEDS ORDERED: TRAMADOL HCL 50 MG TAB PO PRN (03:40)
[2023-05-18] MEDS: TRAMADOL HCL 50 MG TAB PO PRN (03:50)
[2023-05-18] MEDS ORDERED: PANTOPRAZOLE 40MG TABLET PO ONE (06:42)
[2023-05-18] MEDS: PANTOPRAZOLE 40MG TABLET PO SCH (06:45)
[2023-05-18] MEDS ORDERED: AMIODARONE HCL 200 MG TAB ONE (08:19)
[2023-05-18] MEDS ORDERED: CLOPIDOGREL 75 MG TABLET ONE (08:19)
[2023-05-18] MEDS ORDERED: carvediloL 6.25 MG TAB ONE (08:20)
[2023-05-18] MEDS ORDERED: NA CHLORIDE 0.9% 1,000 ML ONE (08:20)
[2023-05-18] MEDS ORDERED: HEPARIN 5000 UNIT/ML 1 ML VIAL ONE (08:20)
[2023-05-18] MEDS: AMIODARONE HCL 200 MG TAB PO SCH (09:00)
[2023-05-18] MEDS: INSULIN GLARGINE 100 UNIT/ML SQ SCH (09:00)
[2023-05-18] MEDS: CLOPIDOGREL 75 MG TABLET PO SCH (09:00)
[2023-05-18] MEDS: carvediloL 6.25 MG TAB PO SCH (09:00)
[2023-05-18] MEDS ORDERED: SACUBITRIL/VALSARTAN 24/26 MG TAB PO SCH (09:00)
[2023-05-18] MEDS ORDERED: FUROSEMIDE 40 MG TABLET PO SCH (09:00)
[2023-05-18] MEDS: MEMANTINE HCL 10 MG TABLET PO SCH (09:00)
[2023-05-18] MEDS: POTASSIUM CL SA 10 MEQ TAB PO ONE (09:23)
--- NOTE | 2023-05-18 11:59 | CON ---
Date of Consultation: 05/18/2023 Reason For Consultation: Elevated BUN and creatinine. History Of Present Illness: This is a 77-year-old female with significant past medical history of hy pertension since 2004, hyperlipidemia, CAD complicated with congestive heart failure, ejection fracti on of 30%; status post ICD back in 2019; diabetes since 2007. No neuropathy, no retinopathy, chronic kidney disease stage 3B, PAD, baseline creatinine of recent admission back in early April 1.8, GFR o f 40. The patient was in her regular state of health. The patient recently was admitted to the [facility] for osteomyelitis, discharged on the on vancomycin. Apparently, patient was doing well. T he patient was called for elevation in vancomycin trough, directed to the hospital. Upon arrival to the hospital, vancomycin trough was 45, creatinine 5.6 with GFR of 7. For that reason, patient was a dmitted. We are being consulted. The patient denied taking any nonsteroidal. No recent contrast. Past Medical History: Includes: 1.Diabetes, complicated with nephropathy. 2.Hypertension. 3.Hyperlipidemia. 4.CAD, complicated with congestive heart failure, status post ICD, ejection fraction of 30%. 5.PAD. 6.Osteomyelitis. Allergies: PENICILLIN, BACLOFEN, HYDROCODONE. Home Medications: Include amiodarone, Lasix, insulin, carvedilol, Entresto, Namenda, gabapentin, santi rvastatin, and tramadol. Past Surgical History: Include: 1.ICD. 2.Back surgery. 3.Hysterectomy. 4.Angiogram. Family History: Positive for hypertension, kidney disease, and CAD. Social History: Denies smoking. Lives with family. Denied alcohol, denied drug abuse. Review of Systems: Head and Neck: No red eye. No ear pain. GI: Has abdominal pain. : No polyuria, no dysuria, no hematuria. Still has good output. 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 Respiratory: No shortness of breath. Cardiovascular: No chest pain. Endocrine: No polydipsia. Skin: No rash. Neuro: Has pain in the leg. Musculoskeletal: No joint pain. Physical Examination: Vital Signs: When I saw the patient, patient is lying in bed. Blood pressure of 144/47, pulse of 98 . Chest: Clear to auscultation. Heart: S1, S2. Regular. Abdomen: Soft, nontender. Extremities: No edema. Neuro: Alert. No focality. No tremor. Current Medications: The patient is on Plavix, heparin, carvedilol, atorvastatin, Tylenol, gabapenti n, Namenda, pantoprazole, insulin, IV fluid with tramadol. Laboratory Data: Sodium 139, potassium 3.6, bicarb 25, BUN 26, creatinine 5.4. GFR of 11. Calcium of 8. Magnesium 1.3. Back in early April, creatinine 1.8 with GFR of 40 as of May 06. Renal ultr asound done on this admission did not show any obstruction, small size kidney 9.5/8.9. Vancomycin tr ough show 45. Assessment And Plan: Acute kidney injury secondary to toxic acute tubular necrosis secondary to vanc omycin toxicity. I can continue IV hydration superimposed with Lasix and ARB. 1.I agree with holding vancomycin, holding Lasix, and holding Entresto. Agree with IV fluid. 2.Obstructive uropathy has been ruled out. We will continue to monitor the patient. The patient do es not have any uremic symptoms. No hyperkalemia or acidosis. I do not see the need to initiate any renal replacement therapy. I discussed the case with the family. Patient agreed on the plan. 3.Hyponatremia secondary to renal failure. No need for treatment right now. 4.Hypokalemia. I am going to be cautiously replacing. We will follow up. 5.Osteomyelitis. Vancomycin has been discontinued. We will follow up alternative. Thank you Dr. Baig for allowing us to participate in the care of your patient. Time spent examining the patient [id number], reviewing data, lab and radiology, placing order, discussing the case with the patient, discussing the case with the daughter by bedside, discussing the case with the hospital ist and nursing staff in the ER more than 75 minutes. SABINA Voice ID: [id number] Report ID: [id number]
[2023-05-18] MEDS ORDERED: POTASSIUM CL SA 10 MEQ TAB PO ONE (12:03)
--- NOTE | 2023-05-18 12:57 | P.PN ---
Date of Service: 05/18/23 Subjective: No acute events overnight no complaints ROS: 10 point ROS as noted above, otherwise negative Physical exam GEN: Alert, oriented, NAD HEENT: Normal conjunctiva, sclera anicteric CV: Regular rate and rhythm, no edema Pulm: Nonlabored respirations on room air ABD: Soft, nontender, nondistended MSK: No joint tenderness Integumentary: No rashes Neuro: Normal speech, normal affect Vitals reviewed Assessment: Acute kidney injury with underlying CKD 3 Vancomycin toxicity Osteomyelitis of the right second toe middle and distal phalanx PAD Chronic systolic congestive heart failure with pacemaker in place Diabetes mellitus type 2insulin-dependent Hypertension Hyperlipidemia Chronic thrombocytopenia Dementia Plan: Acute kidney injury with underlying CKD 3 Vancomycin toxicity Family reports some difficulty in obtaining outpatient labs with home health Unclear values of previous chemistries/Vanc trough as outpatient Hold vancomycin Renal ultrasound without obstructive findings Continue NS at 75 cc/h Will need to be careful with IV fluids given chronic systolic congestive heart failure Hold Entresto, Lasix for now Appreciate further input from the nephrology Osteomyelitis of the right second toe middle and distal phalanx PAD Patient has PICC line in place, was supposed to receive antibioticsvancomycin through 06/13 for osteomyelitis Will hold vancomycin and treat acute kidney injury Consult ID for further recommendations regarding osteomyelitis Continue aspirin, Plavix Chronic systolic congestive heart failure with pacemaker in place Does not appear grossly overloaded at this time Will need to hold Entresto, Lasix given significant acute kidney injury Diabetes mellitus type 2insulin-dependent ACHS Accu-Chek, sliding scale insulin Hypertension Hyperlipidemia Continue home medications Chronic thrombocytopenia Platelets within normal limits at this time Monitor daily Continue aspirin, Plavix Hold subcu heparin if platelets less than 100 Dementia Continue home medications DVT PPX: Heparin subcu Code status: Full Discharge Plan: Home Discharge Plan: Home Plan to discharge in: Greater than 2 days Time Spent Managing Pts Care (In Minutes): 35 <Armond Philip - Last Filed: 05/18/23 12:57> Patient seen and examined on rounds this morning with FIRST ASSIST Cedrick. I performed a substantial part of the MDM during this patient's care today as noted above in the plan of care. I agree with plan of care as noted above with the following additions / corrections: Problem List chronic systolic CHF - with AICD/PPM no acute events overnight very slight improvement in renal function recheck vanc level unclear etiology of TERRY; if vanc is cause, or the opposite unsure if patient still taking amiodarone, need to get updated med list patient's previous QTc >500, will recheck EKG unclear why taking amiodarone, will confirm with patient <Bruce Baig - Last Filed: 05/18/23 20:57>
--- NOTE | 2023-05-18 12:59 | CON ---
Date of Consultation: 05/18/2023 Reason For Consult: Acute renal failure. History Of Present Illness: Ms. Hendrix is a 77-year-old female with past medical history significan t for history of chronic systolic heart failure, insulin-dependent diabetes, hypertension, hyperlipid emia, and thrombocytopenia, who was recently discharged on May 06 with PICC line and started on ant ibiotics with vancomycin 1 g every 36 hours for treatment of osteomyelitis. She was sent over back t o the hospital because of worsening renal function. She was noted to have vancomycin trough of 45 wi th acute renal failure and creatinine of 5.66. The patient is a poor historian. Denies any other co mplaints other than her heels hurting. Past Medical History: Significant for insulin-dependent diabetes, chronic systolic heart failure, hy pertension, dementia, stage 3 CKD with proteinuria, has been followed by our group for a long time. History of pacemaker defibrillator placement, hysterectomy, and vascular surgery. Social History: Currently lives at a group home. Family History: Noncontributory. Review of Systems: Unable to be obtained. Physical Examination: Vital Signs: Showing temperature of 98.3, pulse rate of 71, respiratory rate of 18, and blood pressu re 114/37. General: She appears in no acute distress. HEENT: Atraumatic head. Lungs: Auscultation of the lungs reveal bilateral equal air entry. Heart: Auscultation of the heart reveals regular rate and rhythm. Abdomen: Soft and nontender. Extremities: Right hand PICC line in place. Extremities showed no evidence of edema. Bilateral ebony ls were noted to be in dressing. Laboratory Data: Showing creatinine of 5.41, slightly better from 5.66; BUN of 26; and other electro lytes are stable. She has a PureWick and some urine output noted. Laboratory data showin g hemoglobin of 8.2, hematocrit of 25, and platelet count of 141. Current Medications: Include Tylenol, amiodarone, carvedilol, Plavix, heparin, insulin, normal salin e at 75 cc an hour, rosuvastatin, and tramadol. Impression: 1.Acute renal failure secondary to possibly from acute tubular necrosis, possibly related to vancomy ed toxicity. At this time, vancomycin is currently on hold. We will continue to monitor closely. The patient is nonoliguric and renal function seems to be slightly better. 2.Underlying dementia with possibly some superimposed altered mental status. Currently stable. We will continue to monitor after correction of metabolic parameters. 3.Anemia secondary to chronic disease. Currently with stable hemoglobin. Follow up on labs and tra nsfuse as needed. 4.Osteomyelitis of the right toes. The patient has PICC line in place. Vancomycin is currently on hold. 5.Chronic systolic heart failure. Entresto is currently on hold given acute kidney injury. Continu e gentle IV hydration and monitor closely. Plan: Overall, patient is clinically stable. At this time, I will go ahead and change IV fluids to half NS to prevent volume overload and we will continue hydration and antibiotics to be on hold until Infectious Disease consults with the patient and follow up closely. VV/MODL Voice ID: [id number] Report ID: [id number]
[2023-05-18] MEDS: NACHLORIDE 0.45% 1,000 ML IV SCH (13:00)
[2023-05-18] MEDS ORDERED: NACHLORIDE 0.45% 1,000 ML IV ONE (14:48)
[2023-05-18] MEDS ORDERED: TRAMADOL HCL 50 MG TAB ONE (15:03)
[2023-05-18] MEDS: ROSUVASTATIN 10 MG TAB PO SCH (20:32)
[2023-05-18 20:57] LABS: Specific Gravity 1.007 (1.005-1.030); Sqamous Epithelial <5 /HPF (None Seen); Urine Bacteria <20 /HPF (<20); Urine Bilirubin NEGATIVE (Negative); Urine Blood Negative (Negative); Urine Clarity Turbid (Clear); Urine Color Colorless (Yellow); Urine Culture Reflex Order NOT NEEDED; Urine Glucose NEGATIVE (Negative); Urine Ketones NEGATIVE (Negative); Urine Micro Reflex YN NO BILL MICROSCOPIC; Urine Mucus Slight /HPF (None Seen); Urine Nitrite NEGATIVE (Negative); Urine Protein NEGATIVE (Negative); Urine RBC <5 /HPF (None Seen); Urine Urobilinogen Normal (Normal); Urine WBC <5 /HPF (<5); Urine pH 5.5 (5.0-7.0)
[2023-05-18 21:47] LABS: UR PROTEIN 17.3 mg/dL (<11.9); Urine Protein/Creatinine Ratio 0.19 ratio (<0.15)
[2023-05-18] MEDS: GABAPENTIN 400 MG CAP PO PRN (22:23)
[2023-05-19 07:56] LABS: Absolute Basophils 0.1 K/uL (0-0.5); Absolute Eosinophils 0.2 K/uL (0-0.5); Absolute Lymphocytes (CBC) 0.8 K/uL (0.7-4.9); Absolute Monocytes 0.5 K/uL (0.1-1.3); Absolute Neutrophil 2.9 K/uL (1.8-8.0); Basophils % 1.2 % (0-1.3); Eosinophils % 3.6 % (0-4.4); Hematocrit 23.9 % (36.0-45.0); Hemoglobin 7.8 g/dL (12.0-15.0); Lymphocytes % 17.1 % (15.3-44.8); MCH 29.9 pg (27.0-35.0); MCHC 32.8 g/dL (32.0-36.0); MCV 91.1 fL (80-100); MPV 9.2 fL (7.6-11.3); Neutrophils % 66.1 % (41.7-73.7); Nucleated Red Blood Cells % 0.1 % (0-0); Platelets 139 thou/uL (152-406); RBC Red Blood Cell Count 2.62 M/uL (3.86-4.86); Red Cell Distribution Width 15.3 % (12.1-15.2)
[2023-05-19 08:11] LABS: Albumin 2.3 g/dL (3.4-5.0); Anion Gap 9.4 mEq/L (5.0-15.0); Magnesium 1.7 mg/dL (1.6-2.4); Phosphorus 3.3 mg/dL (2.5-4.9); Potassium 3.4 mEq/L (3.5-5.1); Uric Acid 9.3 mg/dL (2.6-6.0)
--- NOTE | 2023-05-19 11:26 | P.PN ---
Date of Service: 05/19/23 Subjective: No acute events overnight C/O pain to heal, wound noted to heal ROS: 10 point ROS as noted above, otherwise negative Physical exam GEN: Alert, oriented, NAD HEENT: Normal conjunctiva, sclera anicteric CV: Regular rate and rhythm, no edema Pulm: Nonlabored respirations on room air ABD: Soft, nontender, nondistended MSK: No joint tenderness Integumentary: Wound noted to heel without significant erythema, swelling Neuro: Normal speech, normal affect Vitals reviewed Assessment: Acute kidney injury with underlying CKD 3 Vancomycin toxicity Osteomyelitis of the right second toe middle and distal phalanx PAD Chronic systolic congestive heart failure with pacemaker in place Diabetes mellitus type 2insulin-dependent Hypertension Hyperlipidemia Chronic thrombocytopenia Dementia Plan: Acute kidney injury with underlying CKD 3 Vancomycin toxicity Family reports some difficulty in obtaining outpatient labs with home health Unclear values of previous chemistries/Vanc trough as outpatient Hold vancomycin Renal ultrasound without obstructive findings Continue 1/2NS at 75 cc/h Will need to be careful with IV fluids given chronic systolic congestive heart failure Hold Entresto, Lasix for now Appreciate further input from the nephrology Some improvement in renal function vanc trough downward trending Osteomyelitis of the right second toe middle and distal phalanx PAD Patient has PICC line in place, was supposed to receive antibioticsvancomycin through 06/13 for osteomyelitis Will hold vancomycin and treat acute kidney injury Consult ID for further recommendations regarding osteomyelitis Continue aspirin, Plavix Chronic systolic congestive heart failure with pacemaker in place Does not appear grossly overloaded at this time Will need to hold Entresto, Lasix given significant acute kidney injury Diabetes mellitus type 2insulin-dependent ACHS Accu-Chek, sliding scale insulin Hypertension Hyperlipidemia Continue home medications Chronic thrombocytopenia Platelets within normal limits at this time Monitor daily Continue aspirin, Plavix Hold subcu heparin if platelets less than 100 Dementia Continue home medications DVT PPX: Heparin subcu Code status: Full Discharge Plan: Home Discharge Plan: Home Plan to discharge in: Greater than 2 days Time Spent Managing Pts Care (In Minutes): 35
--- NOTE | 2023-05-19 13:27 | PN ---
Date of Progress Note: 05/19/2023 Subjective: The patient was admitted with acute kidney injury on chronic kidney disease secondary to vanc toxicity, toxic ATN, patient's obstructive uropathy has been ruled out. IV hydration started. Kidney function gradually improving. Physical Examination: Vital Signs: When I saw the patient, blood pressure 141/67, pulse of 55, afebrile. Chest: Clear to auscultation. Heart: S1, S2. Regular. Abdomen: Soft, nontender. Extremities: No edema. Neurologic: Alert, no focality. Laboratory Data: Hemoglobin 7.8, sodium 139, potassium 3.4, bicarb 24, BUN 22, creatinine 4.8, GFR o f 9, calcium 9.3, phosphorus 3.3, magnesium 1.7, albumin 2.3, corrected calcium is 10.5. Current Medications: The patient on include: 1.Plavix. 2.Amiodarone. 3.Carvedilol 6.25 b.i.d. 4.Gabapentin. 5.Namenda. 6.Pantoprazole. 7.Insulin. 8.IV fluid at 75 per hour. Assessment And Plan: 1.Acute kidney injury, small size kidney obstruction, obstructive uropathy has been ruled out second soraida to toxic ATN, poor perfusion ATN, on the recovery phase, nonoliguric. No hyperkalemia, no acidos is. I do not see the need to initiate any renal replacement therapy. I am going to continue hydrati on, decrease IV fluid to 50 per hour and I am going to continue to monitor the patient. 2.Hypertension, controlled, optimal. Continue current treatment. 3.Hyponatremia secondary to renal failure, stable. No need for supplement. 4.Hypokalemia with hypomagnesemia. We will supplement. 5.Osteomyelitis, as by primary. 6.Diabetes, as by primary. 7.Anemia with the presence of acute kidney injury. I am going to send for serum protein electrophor esis. We will send for anemia workup and we will follow up the patient. 8.Secondary hyperparathyroidism. I going to start the patient on calcitriol. NICO/JAROCHO Voice ID: [id number] Report ID: [id number]
[2023-05-19] MEDS: Magnesium Sulfate 2gm IVPB 2 G/50 ML BAG IV ONE (13:30)
[2023-05-19] MEDS: CALCITROL 0.25 MCG CAP PO SCH (13:30)
[2023-05-19] MEDS: NACHLORIDE 0.45% 1,000 ML IV SCH (13:30)
[2023-05-19] MEDS: POTASSIUM 25 MEQ EFFERV TAB PO ONE (13:30)
[2023-05-20 05:20] LABS: Absolute Basophils 0.1 K/uL (0-0.5); Absolute Eosinophils 0.2 K/uL (0-0.5); Absolute Lymphocytes (CBC) 0.6 K/uL (0.7-4.9); Absolute Monocytes 0.7 K/uL (0.1-1.3); Basophils % 1.1 % (0-1.3); Eosinophils % 3.7 % (0-4.4); Hematocrit 26.4 % (36.0-45.0); Hemoglobin 8.5 g/dL (12.0-15.0); Lymphocytes % 11.1 % (15.3-44.8); MCH 29.2 pg (27.0-35.0); MCHC 32.2 g/dL (32.0-36.0); MCV 90.8 fL (80-100); MPV 9.5 fL (7.6-11.3); Monocytes % 11.9 % (3.3-12.3); Neutrophils % 72.2 % (41.7-73.7); Platelets 157 thou/uL (152-406); RBC Red Blood Cell Count 2.91 M/uL (3.86-4.86); Red Cell Distribution Width 15.4 % (12.1-15.2)
[2023-05-20] MEDS: ONDANSETRON 4 MG/2 ML VIAL IV PRN (05:27)
[2023-05-20 05:42] LABS: Albumin 2.5 g/dL (3.4-5.0); Anion Gap 10.2 mEq/L (5.0-15.0); Ferritin 222.3 ng/mL (8-388); Magnesium 2.4 mg/dL (1.6-2.4); Phosphorus 3.2 mg/dL (2.5-4.9); Potassium 4.2 mEq/L (3.5-5.1)
--- NOTE | 2023-05-20 08:30 | P.CNS ---
Date of Consult: 05/20/23 Reason for Consult: osteomyelitis; vancomycin toxicity Chief Complaint: TERRY History of Present Illness: Patient is a 77 year old female with a past medical history of chronic systolic CHF, pacemaker, CKD III, diabetes mellitus type II, HTN, HLD, peripheral ar terial disease and dementia who presented to the ED due to PICC line complications and vancomycin toxicity. Patient was recently hospitalized and started on IV antibiotics for osteomyelitis right 2nd toe. She was discharged to home with home health and PICC line to continue IV Vancomycin x 6 weeks [05/02 to 06/13]. Infectious disease consulted. Allergies Penicillins Allergy (Mild, Verified 03/29/14 22:36) Hives/Rash baclofen Allergy (Verified 05/03/23 20:09) Hives/Rash hydrocodone Allergy (Verified 05/03/23 20:09) Hives/Rash No Known Allergie Allergy (Uncoded 11/11/15 08:18) Unknown Home Medications: Amiodarone HCl [Cordarone*] 1 tab PO DAILY 05/30/17 Furosemide 1 tab PO DAILY 05/30/17 Insulin Glargine,Hum.rec.anlog [Lantus] 20 unit SQ DAILY 05/30/17 Sacubitril/Valsartan [Entresto 24 mg-26 mg Tablet] 1 tab PO BID 05/30/17 carvediloL [Carvedilol] 1 tab PO BID 05/30/17 Clopidogrel Bisulfate [Plavix*] 75 mg PO DAILY 08/25/21 Memantine HCl [Namenda] 10 mg PO BID 08/25/21 Gabapentin [Neurontin*] 400 mg PO TIDP PRN 05/03/23 Pantoprazole [Protonix Tab*] 40 mg PO DAILY 05/03/23 Rosuvastatin Calcium [Crestor] 20 mg PO BEDTIME 05/03/23 Tramadol HCl [Ultram] 50 mg PO Q4HP PRN 05/03/23 - Past Medical/Surgical History Diabetic: Yes -: HLD -: Systolic CHF -: HTN -: DM II -: Dementia -: CKD III with Proteinuria (Dr. Obando/ Dr. Soriano) -: Thrombocytopenia -: PAD -: Pacer/Defib -: Back sX -: Hysterectomy -: Vascular Sx Psychosocial/ Personal History: Patient lives at home with family - Family History Mother Medical History: Hypertension Sister Medical History: Kidney disease Father Medical History: Heart disease Brother Medical History: Heart disease - Social History Smoking Status: Unknown if ever smoked Alcohol use: No CD- Drugs: No Caffeine use: Yes Place of Residence: Home Review of Systems 10-point ROS is otherwise unremarkable Musculoskeletal: Foot Pain (right heel) Physical Examination Temp Pulse Resp BP Pulse Ox 99.4 F 70 16 162/65 H 96 05/20/23 04:00 05/20/23 04:00 05/20/23 04:44 05/20/23 04:00 05/20/23 05:44 General: In no apparent distress, Oriented x2 HEENT: Atraumatic, Normocephalic Respiratory: Clear to auscultation bilaterally, Normal air movement Cardiovascular: No edema, Regular rate/rhythm Gastrointestinal: Normal bowel sounds, Soft and benign, Non-distended Integumentary: Pressure ulcer (right heel unstageable) Laboratory Data - Reviewed Microbiology Data - Reviewed Imagings Data: - Reviewed Conclusions/Impression: Problem List Osteomyelitis of the Right 2nd toe Vancomycin Toxicity Acute Kidney Injury Chronic Kidney Disease stage III Peripheral Arterial Disease Chronic Systolic Congestive Heart Failure Hx Pacemaker Diabetes Mellitus type II Hypertenstion Hyperlipidemia Dementia Osteomyelitis of the Right 2nd toe - Patient was recently hospitalized and started on IV antibiotics for osteomyelitis right 2nd toe. She was discharged to home with home health and PICC line to continue IV Vancomycin x 6 weeks [05/02 to 06/13] - XR right foot 05/01: " Prominent diffuse osteopenia. Moderate calcaneal spurs. Bony destruction is seen involving the middle and distal phalanx of the second toe with soft tissue swelling compatible with osteomyelitis." - 05/16 vanco trough = 45. It is reported that there was difficulty obtaining labs and PICC line infusion complications as outpatient. - vanco trough trending down Recommendations - Hold Vancomycin for now. Once trough levels <20, restart Vancomycin and continue as planned for 6 weeks [05/02 to 06/13] - Renally dose. Pharmacy consulted. - Monitor CBC, BMP and vanco trough levels at least twice weekly as outpatient - Left heel wound care per wound care team. Pressure offloading measures. - Continue supportive care Case discussed with Enedelia Levi
--- NOTE | 2023-05-20 10:26 | P.PN ---
Date of Service: 05/20/23 Subjective: Less appetite today Doing well otherwise tramadol working for pain no acute events overnight ROS: 10 point ROS as noted above, otherwise negative Physical exam GEN: Alert, oriented, NAD HEENT: Normal conjunctiva, sclera anicteric CV: Regular rate and rhythm, no edema Pulm: Nonlabored respirations on room air ABD: Soft, nontender, nondistended MSK: No joint tenderness Integumentary: Wound noted to heel without significant erythema, swelling Neuro: Normal speech, normal affect Vitals reviewed Assessment: Acute kidney injury with underlying CKD 3 Vancomycin toxicity Osteomyelitis of the right second toe middle and distal phalanx PAD Chronic systolic congestive heart failure with AICD/pacemaker in place Diabetes mellitus type 2insulin-dependent Hypertension Hyperlipidemia Chronic thrombocytopenia Dementia Plan: Acute kidney injury with underlying CKD 3 Vancomycin toxicity Family reports some difficulty in obtaining outpatient labs with home health Unclear values of previous chemistries/Vanc trough as outpatient Hold vancomycin until trough <20 then resume Renal ultrasound without obstructive findings Will need to be careful with IV fluids given chronic systolic congestive heart failure Hold Suzie Thao for now Appreciate further input from the nephrology Some improvement in renal function vanc trough downward trending Osteomyelitis of the right second toe middle and distal phalanx PAD Patient has PICC line in place, was supposed to receive antibioticsvancomycin through 06/13 for osteomyelitis Will hold vancomycin and treat acute kidney injury Infectious disease recommends reinitiating vancomycin therapy when trough level is less than 20 Continue aspirin, Plavix Chronic systolic congestive heart failure with AICD/pacemaker in place Holding diuretics given acute kidney injury Continue amiodarone-takes for V. tach prevention Diabetes mellitus type 2insulin-dependent ACHS Accu-Chek, sliding scale insulin Hypertension Hyperlipidemia Continue home medications Chronic thrombocytopenia Platelets within normal limits at this time Monitor daily Continue aspirin, Plavix Hold subcu heparin if platelets less than 100 Dementia Continue home medications DVT PPX: Heparin subcu Code status: Full Discharge Plan: Home Plan to discharge in: Greater than 2 days Time Spent Managing Pts Care (In Minutes): 35
--- NOTE | 2023-05-20 13:40 | EKG ---
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
[2023-05-20] MEDS: LIDOCAINE 2% INJ, 20 mL 20 ML ONE (18:35)
[2023-05-20] MEDS: LIDOCAINE 1% MPF 30 ML VIAL SQ ONE (19:23)
[2023-05-20] MEDS: AMINO ACIDS/PROTEIN HYDROLYS 30 ML LIQUID.PKT PO SCH (21:00)
[2023-05-20] MEDS: ENSURE HIGH PROTEIN 237 ML CAN PO SCH (21:00)
--- NOTE | 2023-05-21 00:23 | PN ---
Date of Progress Note: 05/20/2023 Chief Complaint: Acute kidney injury. Subjective: The patient is admitted with acute kidney injury with superimposed chronic kidney diseas e. The patient was found to have nonoliguric acute kidney injury secondary to vancomycin toxicity, c omplicated by acute tubular necrosis. The patient is started on IV fluids to prevent prerenal azotem ia and provide management for acute kidney injury. The patient has underlying chronic kidney disease . She had workup done to rule out obstructive uropathy and hydronephrosis was ruled out. Renal func tion is gradually improving. The patient remains nonoliguric. Review of Systems: Denies chest pain, palpitation. Physical Examination: Lungs: Clear to auscultation bilaterally. Heart: S1, S2. Abdomen: Soft, benign. Extremities: No edema. Impression And Plan: 1.Acute kidney injury. The patient had ultrasound done, which showed small size kidneys without obs truction. Obstructive uropathy was ruled out. The patient has acute tubular necrosis secondary to r enal hypoperfusion and prerenal azotemia, complicated by vancomycin toxicity. There is no hyperkalem ia. No electrolyte abnormalities. There is no evidence of metabolic acidosis. The patient will con tinue to have lab work with renal panel, and the patient will continue p.o. hydration. IV fluids wer e decreased to 50 cc/hour. Continue to monitor electrolytes closely. 2.Hypertension, controlled. Optimal blood pressure control. Continue current treatment. 3.Hyponatremia secondary to renal failure, stable. Avoid hypotonic fluids. 4.Hypokalemia and hypomagnesemia, supplementation as needed. 5.Osteomyelitis, per Primary team. 6.Diabetes mellitus with renal manifestation. Continue insulin. EB/MODL Voice ID: [id number] Report ID: [id number]
[2023-05-21 03:09] LABS: Specific Gravity 1.008 (1.005-1.030); Sqamous Epithelial <5 /HPF (None Seen); Urine Bacteria <20 /HPF (<20); Urine Bilirubin NEGATIVE (Negative); Urine Blood Negative (Negative); Urine Clarity Turbid (Clear); Urine Color Light-Yellow (Yellow); Urine Culture Reflex Order NOT NEEDED; Urine Glucose NEGATIVE (Negative); Urine Ketones NEGATIVE (Negative); Urine Microscopic Reflex YN ORDER UMIC; Urine Nitrite NEGATIVE (Negative); Urine Protein NEGATIVE (Negative); Urine RBC <5 /HPF (None Seen); Urine Urobilinogen Normal (Normal); Urine WBC <5 /HPF (<5); Urine WBC Clump Rare /HPF (None Seen); Urine Yeast (Budding) Many /HPF (None Seen)
[2023-05-21 08:03] LABS: Absolute Basophils 0.1 K/uL (0-0.5); Absolute Eosinophils 0.3 K/uL (0-0.5); Absolute Lymphocytes (CBC) 0.7 K/uL (0.7-4.9); Absolute Monocytes 0.6 K/uL (0.1-1.3); Absolute Neutrophil 4.1 K/uL (1.8-8.0); Basophils % 1.1 % (0-1.3); Eosinophils % 4.5 % (0-4.4); Hematocrit 26.6 % (36.0-45.0); Hemoglobin 8.7 g/dL (12.0-15.0); Lymphocytes % 11.6 % (15.3-44.8); MCHC 32.8 g/dL (32.0-36.0); MCV 91.5 fL (80-100); MPV 9.4 fL (7.6-11.3); Monocytes % 10.8 % (3.3-12.3); Platelets 161 thou/uL (152-406); RBC Red Blood Cell Count 2.91 M/uL (3.86-4.86); Red Cell Distribution Width 15.7 % (12.1-15.2)
[2023-05-21 08:17] LABS: Anion Gap 9.5 mEq/L (5.0-15.0); Magnesium 2.3 mg/dL (1.6-2.4); Phosphorus 3.4 mg/dL (2.5-4.9); Potassium 4.5 mEq/L (3.5-5.1)
--- NOTE | 2023-05-21 09:23 | P.PN ---
Date of Service: 05/21/23 INFECTIOUS DISEASE PROGRESS NOTE Chief Complaint: TERRY Subjective: No acute events overnight. In no apparent distress. Sitting in chair at bedside. Denies any new or worsening complaints at this time. Plan of care discussed with patient and daughter at bedside. Physical Examination Temp Pulse Resp BP Pulse Ox 98.8 F 66 20 156/66 H 92 05/21/23 08:00 05/21/23 04:00 05/21/23 08:00 05/21/23 08:00 05/21/23 08:00 General: In no apparent distress, Oriented x2 HEENT: Atraumatic, Normocephalic Respiratory: Clear to auscultation bilaterally, Normal air movement Cardiovascular: No edema, Regular rate/rhythm Gastrointestinal: Normal bowel sounds, Soft and benign, Non-distended Integumentary: Pressure ulcer right heel unstageable. Laboratory Data - Reviewed Microbiology Data - Reviewed Imagings Data: - Reviewed Medication List: Reviewed Assessment and Plan Problem List Osteomyelitis of the Right 2nd toe Vancomycin Toxicity Acute Kidney Injury Chronic Kidney Disease stage III Peripheral Arterial Disease Chronic Systolic Congestive Heart Failure Hx Pacemaker Diabetes Mellitus type II Hypertenstion Hyperlipidemia Dementia Osteomyelitis of the Right 2nd toe - Patient was recently hospitalized and started on IV antibiotics for osteomyelitis right 2nd toe. She was discharged to home with home health and PICC line to continue IV Vancomycin x 6 weeks [05/02 to 06/13] - XR right foot 05/01: " Prominent diffuse osteopenia. Moderate calcaneal spurs. Bony destruction is seen involving the middle and distal phalanx of the second toe with soft tissue swelling compatible with osteomyelitis." - 05/16 vanco trough = 45. It is reported that there was difficulty obtaining labs and PICC line infusion complications as outpatient. - vanco trough trending down Recommendations - Due to renal toxicity and elevated vanco trough, recommend discontinuing vanc omycin and starting on Linezolid and Cefepime to complete remainder of antibiotic course [05/02 to 06/13]. Gram negative and positive coverage recommended given multiple comorbidities including diabetes. Please monitor platelet count closely as Linezolid has increased risk of thrombocytopenia in those with altered renal function. If patient is to go home with home health, recommend obtaining CBC and BMP at least twice weekly (saturday and ). If platelet count drops to less than 100, discontinue Linezolid. - Left heel wound care per wound care team. Pressure offloading measures. - Continue supportive care Case discussed with Enedelia Levi
--- NOTE | 2023-05-21 13:26 | PN ---
Date of Progress Note: 05/21/2023 Subjective: The patient was admitted to the hospital with acute kidney injury secondary to ATN secon key to vanc toxicity. The patient is nonoliguric. The patient is on IV hydration. Physical Examination: Vital Signs: When I saw the patient, the patient is sitting in bed. Blood pressure 156/66, pulse of 66, afebrile. The patient had good urine output of 1100, even balance. Chest: Clear to auscultation. Heart: S1, S2 regular. Abdomen: Soft, nontender. Extremities: Trace edema. Neurologic: Alert. No focality. No tremor. Laboratory Data: Hemoglobin 8.7, WBC 5.6. Sodium 139, potassium 4.5, bicarb 24, BUN 24, creatinine 4.8, calcium 8.8, phosphorus 3.4, magnesium 2.3. Serum protein electrophoresis still pending. Current Medications: The patient is on include Plavix, heparin, amiodarone, carvedilol 6.25, pravast atin, Namenda, gabapentin 400 t.i.d., Ensure, lidocaine patch, pantoprazole, insulin, IV fluid, calci triol. Assessment And Plan: 1.Acute kidney injury secondary to vanc toxicity, ATN, nonoliguric. No hyperkalemia. No acidosis. I do not see the need to initiate any renal replacement therapy. Continue hydration. We will monit or the patient. 2.Hypertension, controlled optimal. Continue current treatment. 3.CAD with congestive heart failure, normal volume currently. We will monitor. 4.Diabetes as per primary. 5.Secondary hyperparathyroid. Continue calcitriol. 6.Hyponatremia, dilutional. We will continue hydration. NICO/JAROCHO Voice ID: [id number] Report ID: [id number]
--- NOTE | 2023-05-21 19:15 | P.PN ---
Date of Service: 05/21/23 Subjective: sitting at the bedside chair c/o not feeling well this AM ROS: 10 point ROS as noted above, otherwise negative Physical exam GEN: AAOx3, NAD, calm HEENT: Normal conjunctiva, sclera anicteric CV: RRR, no edema, no murmur noted, S1-S2 present Pulm: Nonlabored respirations on room air ABD: Normal active bowel sounds, soft and benign on palpation, ND/NT MSK: No joint tenderness Integumentary: Wound noted to heel without significant erythema, swelling Neuro: Normal speech, normal affect Vitals reviewed Assessment: Acute kidney injury with underlying CKD 3 Vancomycin toxicity Osteomyelitis of the right second toe middle and distal phalanx PAD Chronic systolic congestive heart failure with AICD/pacemaker in place Diabetes mellitus type 2insulin-dependent Hypertension Hyperlipidemia Chronic thrombocytopenia Dementia Plan: Acute kidney injury with underlying CKD 3 Vancomycin toxicity Family reports some difficulty in obtaining outpatient labs with home health Unclear values of previous chemistries/Vanc trough as outpatient Hold vancomycin , continue to monitor trough Renal ultrasound without obstructive findings Will need to be careful with IV fluids given chronic systolic congestive heart failure Hold Suzie Thao for now Appreciate further input from the nephrology Some improvement in renal function vanc trough downward trending Osteomyelitis of the right second toe middle and distal phalanx PAD Patient has PICC line in place, was supposed to receive antibioticsvancomycin through 06/13 for osteomyelitis Will hold vancomycin and treat acute kidney injury Infectious disease recommends linezolid and cefepime (monitor platelets with cefepime) Continue aspirin, Plavix Chronic systolic congestive heart failure with AICD/pacemaker in place Holding diuretics given acute kidney injury Continue amiodarone-takes for V. tach prevention Diabetes mellitus type 2insulin-dependent ACHS Accu-Chek, sliding scale insulin Hypertension Hyperlipidemia Continue home medications Chronic thrombocytopenia Platelets within normal limits at this time Monitor daily Continue aspirin, Plavix Hold subcu heparin if platelets less than 100 Dementia Continue home medications DVT PPX: Heparin subcu Code status: Full Discharge Plan: Home
[2023-05-21] MEDS: LINEZOLID 600 MG IVPB 600 MG/300 ML BAG IV SCH (20:59)
[2023-05-21] MEDS: GABAPENTIN 300 MG CAP PO PRN (21:04)
[2023-05-22 06:13] LABS: Absolute Basophils 0.1 K/uL (0-0.5); Absolute Eosinophils 0.2 K/uL (0-0.5); Absolute Lymphocytes (CBC) 0.7 K/uL (0.7-4.9); Absolute Monocytes 0.7 K/uL (0.1-1.3); Absolute Neutrophil 3.2 K/uL (1.8-8.0); Anion Gap 10.4 mEq/L (5.0-15.0); Basophils % 1.3 % (0-1.3); Hematocrit 24.8 % (36.0-45.0); Lymphocytes % 14.8 % (15.3-44.8); MCH 29.5 pg (27.0-35.0); MCHC 32.2 g/dL (32.0-36.0); MCV 91.6 fL (80-100); MPV 9.7 fL (7.6-11.3); Magnesium 2.1 mg/dL (1.6-2.4); Monocytes % 13.6 % (3.3-12.3); Neutrophils % 65.3 % (41.7-73.7); Phosphorus 3.5 mg/dL (2.5-4.9); Platelets 138 thou/uL (152-406); Potassium 4.4 mEq/L (3.5-5.1); RBC Red Blood Cell Count 2.71 M/uL (3.86-4.86); Red Cell Distribution Width 15.6 % (12.1-15.2)
--- NOTE | 2023-05-22 06:45 | P.PN ---
Date of Service: 05/22/23 Subjective: Awake and conversing well, family at bedside Feeling better, no new complaints Tolerating p.o. diet but does have decreased intake kidneys slowly improving ROS: 10 point ROS as noted above, otherwise negative Physical exam GEN: No acute distress, alert and oriented x 3 HEENT: Normal conjunctiva, sclera anicteric CV: Regular rate and rhythm, S1-S2 present, no murmur noted Pulm: Symmetrical chest wall movement, clear bilateral lung sounds on auscultation ABD: soft and benign on palpation, normal active bowel sounds, ND/NT MSK: No joint tenderness Integumentary: Wound noted to rightheel without significant erythema, swelling, dressing CDI Neuro: Normal speech, normal affect Vitals reviewed Assessment: Acute kidney injury with underlying CKD 3 Vancomycin toxicity Osteomyelitis of the right second toe middle and distal phalanx PAD Chronic systolic congestive heart failure with AICD/pacemaker in place Diabetes mellitus type 2insulin-dependent Hypertension Hyperlipidemia Chronic thrombocytopenia Dementia Plan: Acute kidney injury with underlying CKD 3 Vancomycin toxicity Family reports some difficulty in obtaining outpatient labs with home health Unclear values of previous chemistries/Vanc trough as outpatient Renal ultrasound without obstructive findings Will need to be careful with IV fluids given chronic systolic congestive heart failure Hold Entresto, Lasix for now Appreciate further input from the nephrology Some improvement in renal function vanc trough downward trending Osteomyelitis of the right second toe middle and distal phalanx PAD Patient has PICC line in place, was supposed to receive antibioticsvancomycin through 06/13 for osteomyelitis Infectious disease recommends linezolid and cefepime (monitor platelets with linezolid) Continue aspirin, Plavix Chronic systolic congestive heart failure with AICD/pacemaker in place Holding diuretics given acute kidney injury Continue amiodarone-takes for V. tach prevention Diabetes mellitus type 2insulin-dependent ACHS Accu-Chek, sliding scale insulin Hypertension Hyperlipidemia Continue home medications Chronic thrombocytopenia Platelets within normal limits at this time Monitor daily Continue aspirin, Plavix Hold subcu heparin if platelets less than 100 continue to monitor while on Linezolid (hold if platelets <100) Dementia Continue home medications DVT PPX: Heparin subcu Code status: Full Discharge Plan: Home <Jannette Kimball - Last Filed: 05/22/23 17:54> Patient seen and examined. Plan of care discussed with Ms. Kimball. Nephrology is following and managing TERRY. She is on IV fluids per nephrology. Infectious disease input appreciated. Patient started on Zyvox and cefepime to continue treatment for osteomyelitis. Wound care input appreciated. Local wound care with Fareed. Continue PT. Recheck vancomycin level tomorrow. <sukhwinder anand - Last Filed: 05/22/23 18:40>
[2023-05-22] MEDS: CEFEPIME 1 GM in NA CHLORIDE 0.9% 100 ML IV SCH (09:04)
--- NOTE | 2023-05-22 09:17 | P.PN ---
Date of Service: 05/22/23 INFECTIOUS DISEASE PROGRESS NOTE Chief Complaint: TERRY Subjective: Pt seen and examined at bedside. No acute evetns overnight. In no apparent distress. Denies any new or worsening complaints at this time. Physical Examination Temp Pulse Resp BP Pulse Ox 99.6 F 61 15 153/62 H 99 05/22/23 04:00 05/22/23 04:00 05/22/23 04:00 05/22/23 04:00 05/22/23 04:00 General: In no apparent distress, Oriented x2 HEENT: Atraumatic, Normocephalic Respiratory: Clear to auscultation bilaterally, Normal air movement Cardiovascular: No edema, Regular rate/rhythm Gastrointestinal: Normal bowel sounds, Soft and benign, Non-distended Integumentary: Pressure ulcer right heel unstageable. Laboratory Data - Reviewed Microbiology Data - Reviewed Imagings Data: - Reviewed Medication List: Reviewed Assessment and Plan Problem List Osteomyelitis of the Right 2nd toe Vancomycin Toxicity Acute Kidney Injury Chronic Kidney Disease stage III Peripheral Arterial Disease Chronic Systolic Congestive Heart Failure Hx Pacemaker Diabetes Mellitus type II Hypertenstion Hyperlipidemia Dementia Osteomyelitis of the Right 2nd toe - Patient was recently hospitalized and started on IV antibiotics for osteomyelitis right 2nd toe. She was discharged to home with home health and PICC line to continue IV Vancomycin x 6 weeks [05/02 to 06/13] - XR right foot 05/01: " Prominent diffuse osteopenia. Moderate calcaneal spurs. Bony destruction is seen involving the middle and distal phalanx of the second toe with soft tissue swelling compatible with osteomyelitis." - 05/16 vanco trough = 45. It is reported that there was difficulty obtaining labs and PICC line infusion complications as outpatient. - vanco levels trending down. - Started on Linezolid and Cefepime 05/20. Recommendations - Due to renal toxicity and elevated vanco trough, recommend continuing Linezolid and Cefepime IV to complete remainder of antibiotic course [05/02 to 06/13]. Gram negative and gram positive coverage recommended given multiple comorbidities including diabetes. Please monitor platelet count closely as Linezolid has increased risk of thrombocytopenia in those with altered renal function. Current to discharge home with home health- recommend obtaining CBC and BMP at least once weekly, recommend twice weekly if possible. If platelet count drops to less than 100, please contact physician to consider alternative option. - Left heel wound care per wound care team. Pressure offloading measures. - Continue supportive care Case discussed with Enedelia Levi
[2023-05-22] MEDS: FUROSEMIDE 40 MG/4 ML VIAL IV ONE (12:02)
[2023-05-22] MEDS: SOD FERRIC GLUC COMPLX/SUCROSE 250 MG in NA CHLORIDE 0.9% 250 ML IV SCH (12:02)
[2023-05-22] MEDS: GABAPENTIN 100 MG CAP PO PRN (12:02)
--- NOTE | 2023-05-22 12:03 | PN ---
Date of Progress Note: 05/22/2023 Subjective: The patient was admitted with acute kidney injury secondary to vanc toxicity. The patie nt is on IV fluid, marginal improvement in the kidney function. The patient is complaining from naus ea, no vomiting. The patient has poor appetite. Physical Examination: Vital Signs: Blood pressure 168/71, pulse of 67, afebrile. The patient had good urine output of 140 0. Chest: Clear to auscultation. Heart: S1, S2 regular. Abdomen: Soft, nontender. Extremities: Trace edema. Neurologic: Alert. No focality. No tremor. Laboratory Data: Hemoglobin of 7. Sodium 137, potassium 4.4, bicarb 24, BUN 27, creatinine 4.6, GFR of 9, calcium 8.7, phosphorus 3.5, magnesium 2.1. Current Medications: The patient is on include: 1.Cefepime. 2.Linezolid. 3.Plavix. 4.Carvedilol 6.25. 5.Atorvastatin. 6.Gabapentin 300 t.i.d. 7.Ensure. 8.Zofran. 9.IV fluid at 50 per hour. 10.Tramadol. Assessment And Plan: 1.Acute kidney injury secondary to vanc toxicity, obstructive uropathy has been ruled out. The juancarlos ent is nonoliguric, marginal uremic symptoms with nausea. I had long discussion with the patient and family by bedside. We are going to try to give the patient some diuresis. If these uremic symptoms persist, the patient may benefit from couple of dialysis session and we will follow up the patient. 2.Hypertension, not controlled. I am going to diurese the patient today and we will increase her ca rvedilol. 3.Anemia of chronic kidney disease, stable. Serum protein electrophoresis is still pending. Had pi cture of iron deficiency anemia with control of the infection. I am going to start the patient on IV iron. 4.Hyponatremia, dilutional. We will diurese the patient. 5.Osteomyelitis. Continue current antibiotic dose appropriate, vanc on hold. 6.Secondary hyperparathyroidism, stable. 7.Hypokalemia, status post supplement, resolved. NICO/JAROCHO Voice ID: [id number] Report ID: [id number]
[2023-05-22] MEDS: MEDIHONEY 44 ML TOPICAL TUBE TOP SCH (14:00)
[2023-05-22] MEDS: GUAIFENESIN 600 MG SA TAB PO SCH (20:58)
[2023-05-22] MEDS: carvediloL 12.5 MG TAB PO SCH (20:58)
[2023-05-23] MEDS: GUAIFENESIN/DM 5 ML UCUP PO PRN (00:04)
[2023-05-23 05:50] LABS: Absolute Eosinophils 0.2 K/uL (0-0.5); Absolute Lymphocytes (CBC) 0.5 K/uL (0.7-4.9); Absolute Monocytes 0.6 K/uL (0.1-1.3); Absolute Neutrophil 3.9 K/uL (1.8-8.0); Basophils % 0.8 % (0-1.3); Eosinophils % 3.8 % (0-4.4); Hematocrit 24.1 % (36.0-45.0); Hemoglobin 7.9 g/dL (12.0-15.0); Lymphocytes % 9.7 % (15.3-44.8); MCH 29.6 pg (27.0-35.0); MCHC 32.7 g/dL (32.0-36.0); MCV 90.4 fL (80-100); MPV 9.1 fL (7.6-11.3); Neutrophils % 73.7 % (41.7-73.7); Nucleated Red Blood Cells % 0.1 % (0-0); Platelets 138 thou/uL (152-406); RBC Red Blood Cell Count 2.66 M/uL (3.86-4.86); Red Cell Distribution Width 15.1 % (12.1-15.2)
[2023-05-23 05:59] LABS: Anion Gap 8.2 mEq/L (5.0-15.0); Magnesium 1.9 mg/dL (1.6-2.4); Phosphorus 3.2 mg/dL (2.5-4.9); Potassium 4.2 mEq/L (3.5-5.1)
--- NOTE | 2023-05-23 09:56 | P.PN ---
Patient seen and examined. Plan of care discussed with Cammie Jigar. Plan of care also discussed with Dr. Stubbs nephrology. Serum creatinine did not improve by a significant margin from yesterday. Patient noted to be coughing. She is COVID-positive. Vancomycin level has improved to normal. Plan: Nephrology is planning hemodialysis if the serum creatinine does not improve by tomorrow. Continue local wound care Infectious disease input appreciated. Patient is on Zyvox and cefepime for the osteomyelitis and infected wound. Supportive measures for COVID-19 infection. <sukhwinder anand - Last Filed: 05/23/23 15:49> Date of Service: 05/23/23 Subjective: Awake, c/o left foot pain- pain medications ordered Family concerned about delirium and decreased PO intake working with therapy ROS: 10 point ROS as noted above, otherwise negative Physical exam GEN: AAOx3, NAD, calm HEENT: Normal conjunctiva, sclera anicteric CV: RRR, S1-S2 present, no murmur noted Pulm: Symmetrical chest wall movement, clear bilateral lung sounds on auscultation, on RA ABD: normal active bowel sounds, soft and benign on palpation, ND/NT MSK: No joint tenderness Integumentary: Wound noted to right heel without significant erythema, swelling, dressing CDI Neuro: Normal speech, normal affect Vitals reviewed Assessment: Acute kidney injury with underlying CKD 3 Vancomycin toxicity Osteomyelitis of the right second toe middle and distal phalanx PAD Chronic systolic congestive heart failure with AICD/pacemaker in place Diabetes mellitus type 2insulin-dependent Hypertension Hyperlipidemia Chronic thrombocytopenia Dementia COVID Plan: Acute kidney injury with underlying CKD 3 Vancomycin toxicity Family reports some difficulty in obtaining outpatient labs with home health Unclear values of previous chemistries/Vanc trough as outpatient Renal ultrasound without obstructive findings Will need to be careful with IV fluids given chronic systolic congestive heart failure Hold Suzie Thao for now Appreciate further input from the nephrology Some improvement in renal function vanc trough downward trending- 19.3 Dialysis access tomorrow if creatinine is not improved- Dr. Shanks consulted Osteomyelitis of the right second toe middle and distal phalanx PAD Patient has PICC line in place, was supposed to receive antibioticsvancomycin through 06/13 for osteomyelitis Infectious disease recommends linezolid and cefepime (monitor platelets with linezolid) Continue aspirin, Plavix COVID positive Supportive care Chronic systolic congestive heart failure with AICD/pacemaker in place Holding diuretics given acute kidney injury Continue amiodarone-takes for V. tach prevention Diabetes mellitus type 2insulin-dependent ACHS Accu-Chek, sliding scale insulin Hypertension Hyperlipidemia Continue home medications Chronic thrombocytopenia Anemia of chronic disease Platelets within normal limits at this time Monitor daily- Platlets 138 Continue aspirin, Plavix Hold subcu heparin if platelets less than 100 continue to monitor while on Linezolid (hold if platelets <100) H/H 7.9.1 Dementia Continue home medications DVT PPX: Heparin subcu Code status: Full Discharge Plan: Home <Jannette Kimball - Last Filed: 05/23/23 17:21>
[2023-05-23 11:36] LABS: Abnormal Protein Band 1 REPORT; Albumin, (SPE) 2.6 g/dL (3.8-4.8); Alpha-1-Globulins 0.4 g/dL (0.2-0.3); Alpha-2-Globulins 0.9 g/dL (0.5-0.9); Beta 1 Globulin 0.4 g/dL (0.4-0.6); Gamma Globulins 0.8 g/dL (0.8-1.7); INTERPRETATION REPORT; Total Protein 5.5 g/dL (6.1-8.1)
[2023-05-23 11:52] LABS: INFLUENZA A NAA NEGATIVE (NEGATIVE); RESPIRATORY SYNCYTIAL VIR NAA NEGATIVE (NEGATIVE)
--- NOTE | 2023-05-23 12:09 | P.PN ---
Date of Service: 05/23/23 INFECTIOUS DISEASE PROGRESS NOTE Chief Complaint: TERRY Subjective: No acute events overnight. In no apparent distress. (+) left foot pain No nausea, vomiting or diarrhea. No abdominal pain or chest pain. No shortness of breath or cough. Physical Examination Temp Pulse Resp BP Pulse Ox 97.8 F 64 20 137/53 L 99 05/23/23 08:00 05/23/23 08:00 05/23/23 08:00 05/23/23 08:00 05/23/23 08:00 General: In no apparent distress, Oriented x2, intermittent confusion. HEENT: Atraumatic, Normocephalic. sclera nonicteric. Respiratory: Clear to auscultation bilaterally, Normal air movement Cardiovascular: No edema, Regular rate/rhythm. Gastrointestinal: Normal bowel sounds, Soft and benign, Non-distended Integumentary: Right heel diabetic foot ulcer, dressing clean dry and intact. Laboratory Data - Reviewed Microbiology Data - Reviewed Imagings Data: - Reviewed Medication List: Reviewed Assessment and Plan Problem List Osteomyelitis of the Right 2nd toe Vancomycin Toxicity Acute Kidney Injury Chronic Kidney Disease stage III Peripheral Arterial Disease Chronic Systolic Congestive Heart Failure Hx Pacemaker Diabetes Mellitus type II Hypertenstion Hyperlipidemia Dementia Osteomyelitis of the Right 2nd toe - Patient was recently hospitalized and started on IV antibiotics for ost eomyelitis right 2nd toe. She was discharged to home with home health and PICC line to continue IV Vancomycin x 6 weeks [05/02 to 06/13] - XR right foot 05/01: " Prominent diffuse osteopenia. Moderate calcaneal spurs. Bony destruction is seen involving the middle and distal phalanx of the second toe with soft tissue swelling compatible with osteomyelitis." - 05/16 vanco trough = 45. It is reported that there was difficulty obtaining labs and PICC line infusion complications as outpatient. - vanco levels trending down. - Started on Linezolid and Cefepime 05/20. - Given renal toxicity and elevated vanco trough, recommend continuing Linezolid and Cefepime IV to complete remainder of antibiotic course [05/02 to 06/13]. - Gram negative and gram positive coverage recommended given multiple comorbidities including diabetes. No leukocytosis. Reported increased confusion. Mild elevated temp 99.6. pending covid,influenza,rsv PCR. Recommendations - Osteomyelitis: Recommend continuing Linezolid and Cefepime IV to complete remainder of antibiotic course [05/02 to 06/13]. -Monitor platelet count closely as Linezolid has increased risk of thrombocytopenia in those with altered renal function. - Current plan to discharge home with home health. Recommend obtaining CBC and BMP at least once weekly, twice weekly if possible. If platelet count drops to less than 100, please contact physician to consider alternative option. - right heel wound care per wound care team. Pressure offloading measures. - Continue supportive care Case discussed with Enedelia Levi
[2023-05-23 12:51] LABS: SARS-COV-2 RT PCR POSITIVE (NEGATIVE)
--- NOTE | 2023-05-23 13:00 | PN ---
Date of Progress Note: 05/23/2023 Subjective: The patient was admitted to the hospital with acute kidney injury secondary to vanc [facility]. The patient off vancomycin. Vanc trough dropped latest down to 19. The patient is nonoliguri c, still have nausea. Physical Examination: Vital Signs: Blood pressure 119/52, pulse of 61, afebrile. Chest: Faint rales on the base. Heart: S1, S2. Regular. Systolic murmur. Abdomen: Soft, nontender. Extremities: Trace edema. Neurologic: Alert. No focality. The patient had urine output of 2200. Laboratory Data: Vanc trough 19. WBC 5.3, hemoglobin 7.9. Sodium 133, potassium 4.2, bicarb 25, BU N 30, creatinine 4.6, GFR of 9, calcium 8.3, phosphorus 3.2, magnesium 1.9. Current Medications: The patient is on include: 1.IV iron. 2.Cefepime. 3.Flunisolide. 4.Plavix. 5.Heparin. 6.Atorvastatin. 7.Amiodarone. 8.Carvedilol 12.5. 9.Gabapentin 200 t.i.d. 10.Namenda. 11.Lasix 80, received it yesterday. 12.IV fluid. Assessment And Plan: 1.Acute kidney injury secondary to vanc toxicity, poor recovery so far. No improvement in the kidne y function. The patient has some nausea, failed on hydration. I am going to go ahead and proceed wi th dialysis. I had long discussion with the family, the daughter by bedside that the patient needing renal replacement therapy as a temporary given no improvement in the kidney function and given the u remic symptoms. Family on agreement. We will proceed with catheter placement. We will continue diu resis and we will monitor the patient. We will consult Surgery for tunneled hemodialysis catheter ye t. I am going to keep watching kidney function. If tomorrow, kidney function show improvement furth er, at that time I will back up on the catheter. Otherwise, we will proceed by tomorrow and we will arrange for dialysis for tomorrow. 2.Hypertension, controlled, optimal. Continue current treatment. 3.Secondary hyperparathyroid, stable. 4.Iron deficiency anemia. Continue IV iron. 5.Osteomyelitis. Continue current treatment. Keep holding vanc. 6.Hyponatremia secondary to dilutional. Continue p.r.n. Lasix. NICO/JAROCHO Voice ID: [id number] Report ID: [id number]
[2023-05-23] MEDS: FUROSEMIDE 40 MG TABLET PO ONE (15:55)
[2023-05-23 20:28] LABS: 1,25 Dihydroxy Vitamin D3 11 pg/mL; Vitamin D 1,25-Dihydroxy Total 11 pg/mL (18-72); Vitamin D,1,25-OH2, D2 <8 pg/mL
--- NOTE | 2023-05-23 21:08 | RAD REPORT ---
EXAM DESCRIPTION: US - Extremity Venous Uni Ltd - 05/23/2023 8:59 pm CLINICAL HISTORY: R Foot wound Leg swelling and edema. COMPARISON: EXT VENOUS UNI LTD dated 12/25/2014 FINDINGS: Right lower extremity venous system was interrogated with Doppler technique. Normal flow, compressibility and augmentation was noted. There is no DVT present. IMPRESSION: No evidence of right lower extremity deep venous thrombosis.
--- NOTE | 2023-05-23 21:15 | RAD REPORT ---
EXAM DESCRIPTION: US - Lower Extremity Artery Uni Ltd - 05/23/2023 8:59 pm CLINICAL HISTORY: R Foot wound Leg wound COMPARISON: Lower Extremity Artery Uni Ltd dated 04/17/2023 FINDINGS: Doppler interrogation of the right lower extremity arterial system was performed. Right common femoral artery and superficial femoral artery demonstrate triphasic waveforms. Right popliteal artery and distal demonstrate monophasic waveforms suggesting moderate infrapopliteal peripheral vascular disease. IMPRESSION: Moderate right infrapopliteal peripheral vascular disease.
[2023-05-24 05:29] LABS: Absolute Lymphocytes (CBC) 0.3 K/uL (0.7-4.9); Absolute Monocytes 0.9 K/uL (0.1-1.3); Absolute Neutrophil 5.6 K/uL (1.8-8.0); Basophils % 0.4 % (0-1.3); Eosinophils % 0.7 % (0-4.4); Hematocrit 25.3 % (36.0-45.0); Hemoglobin 8.1 g/dL (12.0-15.0); Lymphocytes % 3.8 % (15.3-44.8); MCH 29.1 pg (27.0-35.0); MCHC 32.1 g/dL (32.0-36.0); MCV 90.7 fL (80-100); MPV 9.7 fL (7.6-11.3); Monocytes % 12.6 % (3.3-12.3); Neutrophils % 82.5 % (41.7-73.7); Platelets 140 thou/uL (152-406); RBC Red Blood Cell Count 2.79 M/uL (3.86-4.86); Red Cell Distribution Width 15.6 % (12.1-15.2)
[2023-05-24 05:46] LABS: Anion Gap 10.2 mEq/L (5.0-15.0); Magnesium 1.8 mg/dL (1.6-2.4); Phosphorus 3.3 mg/dL (2.5-4.9); Potassium 4.2 mEq/L (3.5-5.1)
[2023-05-24] MEDS: MORPHINE 2 MG/ML SYR IV ONE (06:59)
[2023-05-24] MEDS: FENTANYL CITR 100 MCG/2 ML IV PRN (07:16)
--- NOTE | 2023-05-24 07:33 | P.PN ---
Date of Service: 05/24/23 Subjective: Continues to not feel well TDC today No new complaints ROS: 10 point ROS as noted above, otherwise negative Physical exam GEN: uncomfortable, AAOX3 HEENT: Normal conjunctiva, sclera anicteric CV: Regular rate and rhythm, normal S1-S2, no murmur noted Pulm: Symmetrical chest wall movement, clear bilateral lung sounds on auscultation, on RA ABD: soft and benign on palpation, ND/NT, hypoactive bowel sounds MSK: No joint tenderness Integumentary: Wound noted to right heel without significant erythema, swelling, dressing CDI Neuro: Normal speech, normal affect Vitals reviewed Assessment: Acute kidney injury with underlying CKD 3 Vancomycin toxicity Osteomyelitis of the right second toe middle and distal phalanx PAD Chronic systolic congestive heart failure with AICD/pacemaker in place Diabetes mellitus type 2insulin-dependent Hypertension Hyperlipidemia Chronic thrombocytopenia Dementia COVID Plan: Acute kidney injury with underlying CKD 3 Vancomycin toxicity Family reports some difficulty in obtaining outpatient labs with home health Unclear values of previous chemistries/Vanc trough as outpatient Renal ultrasound without obstructive findings Will need to be careful with IV fluids given chronic systolic congestive heart failure Hold Entresto, Lasix for now Appreciate further input from the nephrology Some improvement in renal function- BUN/creatinine 31/4.51, GFR 10 vanc trough downward trending- 19.3 Dr. Shanks consulted- placed TDC Osteomyelitis of the right second toe middle and distal phalanx PAD Patient has PICC line in place, was supposed to receive antibioticsvancomycin through 06/13 for osteomyelitis Infectious disease recommends linezolid and cefepime (monitor platelets with linezolid) Continue aspirin, Plavix COVID positive Supportive care Chest Xray reports "Right IJ approach dialysis catheter with tip overlying the proximal SVC. No pneumothorax. Multifocal airspace disease that may reflect edema and/or pneumonia" Chronic systolic congestive heart failure with AICD/pacemaker in place Holding diuretics given acute kidney injury Continue amiodarone-takes for V. tach prevention Diabetes mellitus type 2insulin-dependent ACHS Accu-Chek, sliding scale insulin Hypertension Hyperlipidemia Continue home medications Chronic thrombocytopenia Anemia of chronic disease Platelets within normal limits at this time Monitor daily- Platelets 140 Continue aspirin, Plavix Hold subcu heparin if platelets less than 100 continue to monitor while on Linezolid (hold if platelets <100) H/H 8.1/25.3 Dementia Continue home medications DVT PPX: Heparin subcu Code status: Full Discharge Plan: Home
--- NOTE | 2023-05-24 08:38 | P.PN ---
Date of Service: 05/24/23 INFECTIOUS DISEASE PROGRESS NOTE Chief Complaint: TERRY Subjective: More lethargic today. Now requiring supplemental O2. Expiratory wheezing. Daughter at bedside. Physical Examination Temp Pulse Resp BP Pulse Ox 98.2 F 70 20 160/66 H 92 05/24/23 04:00 05/24/23 04:00 05/24/23 07:16 05/24/23 04:00 05/24/23 07:16 General: In no apparent distress, Oriented x2. Lethargic. HEENT: Atraumatic, Normocephalic. sclera nonicteric. Respiratory: Diminished. Expiratory wheezing. on 2L nasal cannula. Cardiovascular: No edema, Regular rate/rhythm. Gastrointestinal: Normal bowel sounds, Soft and benign, Non-distended Integumentary: Right heel diabetic foot ulcer, dressing clean dry and intact. Laboratory Data - Reviewed Microbiology Data - Reviewed Imagings Data: - Reviewed Medication List: Reviewed Assessment and Plan Problem List Osteomyelitis of the Right 2nd toe Vancomycin Toxicity Acute Kidney Injury Chronic Kidney Disease stage III Peripheral Arterial Disease Chronic Systolic Congestive Heart Failure Hx Pacemaker Diabetes Mellitus type II Hypertenstion Hyperlipidemia Dementia Osteomyelitis of the Right 2nd toe - Patient was recently hospitalized and started on IV antibiotics for osteomyelitis right 2nd toe. She was discharged to home with home health and PICC line to continue IV Vancomycin x 6 weeks [05/02 to 06/13] - XR right foot 05/01: " Prominent diffuse osteopenia. Moderate calcaneal spurs. Bony destruction is seen involving the middle and distal phalanx of the second toe with soft tissue swelling compatible with osteomyelitis." - 05/16 vanco trough = 45. It is reported that there was difficulty obtaining labs and PICC line infusion complications as outpatient. - vanco levels trending down. - Started on Linezolid and Cefepime 05/20. - Given renal toxicity and elevated vanco trough, recommend continuing Linezolid and Cefepime IV to complete remainder of antibiotic course [05/02 to 06/13]. - Gram negative and gram positive coverage recommended given multiple comorbidities including diabetes. No leukocytosis. Reported increased confusion. Mild elevated temp 99.6. pending covid,influenza,rsv PCR. 05/23: postive covid. Recommendations - postive covid. paxlovid not recommended in patients with severe renal impairment. Continue to monitor. Continue supportive care. - Obtain chest XR. - TERRY on CKD: pending temporary dialysis catheter placement - Osteomyelitis: Recommend continuing Linezolid and Cefepime IV to complete remainder of antibiotic course [05/02 to 06/13]. -Monitor platelet count closely as Linezolid has increased risk of thrombocytopenia in those with altered renal function. - If platelet count drops to less than 100, please contact physician to consider alternative option. - Current plan to discharge home with home health. - Recommend obtaining CBC and BMP at least once weekly, twice weekly if possible. - right heel wound care per wound care team. Pressure offloading measures. Case discussed with Enedelia Levi
--- NOTE | 2023-05-24 12:03 | RAD REPORT ---
EXAM DESCRIPTION: Mis Single View05/24/2023 11:53 am CLINICAL HISTORY: Chest pain COMPARISON: April 2023 FINDINGS: Mild to moderate bilateral patchy lung opacities Cardiomegaly. Pacemaker lead in place. PICC line present IMPRESSION: [id number] bilateral pulmonary opacities could represent pneumonia or pulmonary ed chato
[2023-05-24] MEDS: TRAMADOL HCL 50 MG TAB PO PRN (12:35)
[2023-05-24] MEDS: NS 0.9% VIAL 10 ML ONE (12:52)
[2023-05-24] MEDS: NA CHLORIDE 0.9% 50 ML ONE (12:52)
[2023-05-24] MEDS: NA CHLORIDE 0.9% 500 ML ONE (13:28)
[2023-05-24] MEDS ORDERED: propofoL 200 MG/20 ML VIAL IV ONE (13:45)
[2023-05-24] MEDS ORDERED: LIDOCAINE 1% MPF 5 ML VIAL ONE (13:45)
[2023-05-24] MEDS ORDERED: FENTANYL CITR 100 MCG/2 ML ONE (13:45)
[2023-05-24] MEDS ORDERED: MIDAZOLAM HCL 2 MG/2 ML INJ ONE (13:46)
[2023-05-24] MEDS: BUPIVACAINE 0.25% PF 30 ML VIAL ONE (14:34)
[2023-05-24] MEDS: HEPARIN 5000 UNIT/ML 1 ML VIAL ONE (14:39)
--- NOTE | 2023-05-24 14:56 | P.OP ---
Preoperative diagnosis: Need for Dialysis Postoperative diagnosis: Need for Dialysis Primary procedure: Placement of RIGHT IJ tunneled Hemodialysis catheter Secondary procedure: ultrasound, flouroscopy, micro set utilized Anesthesia: GETA + Local Estimated blood loss: <5cc Specimen: none Findings: dark, non-pulsatile blood returned, cath @ SVC Complications: None Implants: 19cm Hemosplit Transferred to: Recovery Room Condition: Good
[2023-05-24] MEDS: FENTANYL CITR 100 MCG/2 ML ONE (15:37)
--- NOTE | 2023-05-24 15:48 | RAD REPORT ---
EXAM DESCRIPTION: RAD - Chest Single View - 05/24/2023 3:34 pm CLINICAL HISTORY: s/p HD cath placement COMPARISON: Chest Single View dated 05/24/2023; Chest Single View dated 05/05/2023; Chest Single View d ated 04/14/2023; Chest Single View dated 03/31/2023 FINDINGS: Lines: Right IJ approach dialysis catheter with distal tip overlying the proximal SVC. Lungs: Multifocal ill-defined bilateral airspace disease. Pleural: No significant pleural effusions or pneumothorax. Cardiac: Similar cardiomegaly . Mediastinum: Within normal limits. Bones: No acute fractures. Other: ICD. IMPRESSION: Right IJ approach dialysis catheter with tip overlying the proximal SVC. No pneumothorax . Multifocal airspace disease that may reflect edema and/or pneumonia.
--- NOTE | 2023-05-24 16:14 | OP ---
Date of Procedure: 05/24/2023 Surgeon: Doc Shanks MD, Preoperative Diagnosis: Need for dialysis. Postoperative Diagnosis: Need for dialysis. Procedure: Placement of a tunneled right internal jugular hemodialysis catheter using ultrasound, fl uoroscopic guidance with interpretation and microset utilized. Anesthesia: General endotracheal plus local with 0.25% Marcaine. Estimated Blood Loss: 5 cc. Specimen: None. Findings: Dark nonpulsatile blood was returned and the catheter was seen at the confluence of the SV C and atrium. Complications: None. Implants: 19 cm HemoSplit catheter. Disposition: Patient transferred to recovery room in good condition. Procedure In Detail: After informed consent was obtained, patient was brought to the operating room, prepped and draped in the usual sterile fashion. After adequate anesthesia was achieved, I anesthet ized an area of the right internal jugular vein and using ultrasound guidance, placed a micro needle into the right internal jugular vein under direct visualization without incident or complication and the micro wire was advanced at this point, and fluoroscopic guidance confirmed the position of the [place] [facility] microbiologist wire in the right atrium. At this point, I made a small bria incision and placed the introducer sheath for the micro wire at this point, and a 19 cm catheter. Wire was advanced at this point witho ut incident or complication. Fluoroscopic guidance once again confirmed position of the catheter, sh eath and the wire in the appropriate anatomic position. At this point, I anesthetized a tract over t he skin in the right chest wall and made an incision. The entire tract was anesthetized in a supracl avicular approach and I passed and advanced the catheter using the tunneling device up to the inserti on site. The 19 cm catheter sat in the appropriate position and I performed Seldinger technique and sequential dilatation using the set dilators using Seldinger technique over the wire without incident or complication. At this point, the introducer sheath was advanced. The wire was called out for th e second time and I placed the catheter into the introducer sheath and removed the sheath at this poi nt under fluoroscopic guidance and the catheter was found to be at the confluence of the SVC. At thi s point, dark red nonpulsatile blood was returned from both ports and flushed quite easily and I flus hed them until completely clear with sterile saline and heparin super flush was placed in 2 cc per po rt. At this point, the patient was taken out of steep Trendelenburg position. All incisions were ir rigated and the neck insertion site was closed using interrupted 3-0 nylon suture and the catheter wa s secured to the chest wall using the same set 3-0 nylon suture and a sterile dressing placed over to p. The patient tolerated the procedure without incident or complication, transferred to PACU in good condition. All counts were correct at the end of the case. ELLIS/JAROCHO Voice ID: [id number] Report ID: [id number]
--- NOTE | 2023-05-24 16:18 | RAD REPORT ---
EXAM DESCRIPTION: RAD - Fluoroscopy <1 Hour - 05/24/2023 2:54 pm CLINICAL HISTORY: DIALYSIS CATH COMPARISON: Urinary Bladder dated 05/18/2019 FINDINGS/IMPRESSION: Seven intraoperative fluoroscopic images were submitted showing placement of a right IJ approach dialysis catheter. No radiologist was available for the procedure, nor will any image interpretation be provided. Rosalind patel refer to the procedural report for additional details Cumulative dose: 2.56 mGy Fluoro time: 0.1 minutes
--- NOTE | 2023-05-25 00:59 | PN ---
Date of Progress Note: 05/24/2023 Chief Complaint: Acute on chronic kidney disease. Subjective: The patient has advanced chronic kidney disease. She developed acute kidney injury seco ndary to ATN and vancomycin toxicity. The patient is on isolation for COVID. She is on antibiotics as well as cardiac medication for atrial fibrillation. She received Lasix for volume control. The p atient was found to have fluid overload and shortness of breath. The patient is undergoing dialysis catheter placement. Acute kidney injury has not improved. Review of Systems: The patient cannot provide review of systems. She underwent a surgery for the catheter placement tonick paige. She is in recovery, on O2 nasal cannula. Objective: Lungs: Normal chest expansion. Heart: S1, S2. Abdomen: Soft. Extremities: Some edema present. Impression: 1.Acute kidney injury. The patient will have dialysis for kidney injury. Renal function has improv ed. 2.Hypertension. Monitor blood pressure. 3.Hyponatremia secondary to volume overload. Continue p.o. fluid restriction and low-sodium diet as tolerated, and plan dialysis with ultrafiltration to control fluid overload. 4.Hypertension. Continue blood pressure medication. 5.Hyperparathyroidism due to advanced chronic kidney disease. Monitor phosphorus level. 6.Iron-deficiency anemia. The patient is on iron supplementation. 7.Osteomyelitis. The patient is on antibiotics. Vancomycin is on hold. Monitor vancomycin level. EB/MODL Voice ID: [id number] Report ID: [id number]
[2023-05-25 04:54] LABS: Absolute Eosinophils 0.1 K/uL (0-0.5); Absolute Lymphocytes (CBC) 0.3 K/uL (0.7-4.9); Absolute Monocytes 0.6 K/uL (0.1-1.3); Absolute Neutrophil 4.1 K/uL (1.8-8.0); Basophils % 0.7 % (0-1.3); Eosinophils % 1.4 % (0-4.4); Hematocrit 22.6 % (36.0-45.0); Hemoglobin 7.3 g/dL (12.0-15.0); MCH 29.3 pg (27.0-35.0); MCHC 32.2 g/dL (32.0-36.0); MPV 9.5 fL (7.6-11.3); Neutrophils % 80.9 % (41.7-73.7); Platelets 121 thou/uL (152-406); RBC Red Blood Cell Count 2.48 M/uL (3.86-4.86); Red Cell Distribution Width 15.5 % (12.1-15.2)
[2023-05-25 05:14] LABS: Anion Gap 10.1 mEq/L (5.0-15.0); Magnesium 1.6 mg/dL (1.6-2.4); Phosphorus 3.4 mg/dL (2.5-4.9); Potassium 4.1 mEq/L (3.5-5.1)
--- NOTE | 2023-05-25 12:39 | P.PN ---
Date of Service: 05/25/23 Subjective: C/o not feeling well Right leg and foot pain Anemic today, will recheck at noon ROS: 10 point ROS as noted above, otherwise negative Physical exam GEN: uncomfortable, alert and oriented x 3 HEENT: Normal conjunctiva, sclera anicteric CV: RRR, normal S1-S2, no murmur noted Pulm: Symmetrical chest wall movement, clear bilateral lung sounds on auscultation, 1 LNC ABD: soft and benign, ND/NT, hypoactive bowel sounds MSK: No joint tenderness Integumentary: Wound noted to right heel without significant erythema, swelling, dressing CDI Neuro: Normal speech, normal affect Vitals reviewed Assessment: Acute kidney injury with underlying CKD 3 Vancomycin toxicity Osteomyelitis of the right second toe middle and distal phalanx PAD Chronic systolic congestive heart failure with AICD/pacemaker in place Diabetes mellitus type 2insulin-dependent Hypertension Hyperlipidemia Chronic thrombocytopenia Dementia COVID Plan: Acute kidney injury with underlying CKD 3 Vancomycin toxicity Family reports some difficulty in obtaining outpatient labs with home health Unclear values of previous chemistries/Vanc trough as outpatient Renal ultrasound without obstructive findings Will need to be careful with IV fluids given chronic systolic congestive heart failure Hold Entresto, Lasix for now Nephrology Following- dialysis today 05/24 Some improvement in renal function- BUN/creatinine 31/4.20, GFR 10 vanc trough downward trending- 19.3 Dr. Shanks consulted- placed TDC 05/23 Osteomyelitis of the right second toe middle and distal phalanx PAD Patient has PICC line in place, was supposed to receive antibioticsvancomycin through 06/13 for osteomyelitis Infectious disease recommends linezolid and cefepime (monitor platelets with linezolid) Continue aspirin, Plavix COVID positive Supportive care Chest Xray reports "Right IJ approach dialysis catheter with tip overlying the proximal SVC. No pneumothorax. Multifocal airspace disease that may reflect edema and/or pneumonia" Chronic systolic congestive heart failure with AICD/pacemaker in place Holding diuretics given acute kidney injury Continue amiodarone-takes for V. tach prevention Diabetes mellitus type 2insulin-dependent ACHS Accu-Chek, sliding scale insulin Hypertension Hyperlipidemia Continue home medications Chronic thrombocytopenia Anemia of chronic disease Platelets within normal limits at this time Monitor daily- Platelets 121 Continue aspirin, Plavix Hold subcu heparin if platelets less than 100 continue to monitor while on Linezolid (hold if platelets <100) H/H 7.3/22.6 Dementia Continue home medications DVT PPX: Heparin subcu Code status: Full Discharge Plan: Home
[2023-05-25 13:09] LABS: Hematocrit 20.8 % (36.0-45.0); Hemoglobin 6.8 g/dL (12.0-15.0)
--- NOTE | 2023-05-25 14:13 | P.PN ---
Subjective Date of Service: 05/25/23 Chief Complaint: TERRY today Confused cr trending down will hold on starting HD General: awake and alert Neck: Supple. No elevated JVD. Heart: Regular rate and rhythm. Normal S1, S2. Chest: Clear to auscultation bilaterally. No rales or wheezes. , bruises around catheter site Abdomen: Soft and nontender. Extremities: no edema Assessment And Plan: #. Acute kidney injury secondary to vanc toxicity Non oliguric Cr trending down will hold on starting HD for now renal diet renal dose meds Cont gentle hydration # Hypertension, controlled, Continue current treatment. #. Iron deficiency anemia. Continue IV iron. will give Epogen XX1 transfuse if Hb <7.0 # Osteomyelitis. Continue current treatment. Keep holding vanc. Physical Examination - Vital Signs Temperature: 99.1 F Blood Pressure: 138/61 Pulse: 67 Respirations: 18 Pulse Ox (%): 99
[2023-05-25] MEDS ORDERED: NA CHLORIDE 0.9% 250 ML IV SCH (15:00)
--- NOTE | 2023-05-25 17:02 | RAD REPORT ---
EXAM DESCRIPTION: CT - Ct Stroke Brain Wo Cont - 05/25/2023 4:51 pm CLINICAL HISTORY: lethargic COMPARISON: Head Brain Wo Cont dated 08/25/2021; Head Brain Wo Cont dated 03/21/2019 TECHNIQUE: All CT scans are performed using dose optimization technique as appropriate and may inclu de automated exposure control or mA/KV adjustment according to patient size. FINDINGS: No intracranial hemorrhage, hydrocephalus or extra-axial fluid collection.No areas of brai n edema or evidence of midline shift. Mild chronic small vessel ischemic changes. The paranasal sinuses and mastoids are clear. The calvarium is intact. IMPRESSION: No acute intracranial abnormality.
[2023-05-25] MEDS: NA CHLORIDE 0.9% 250 ML ONE (17:53)
[2023-05-25] MEDS: HYDROMORPHONE HCL 0.5 MG/0.5 ML INJ IV PRN (18:08)
[2023-05-25] MEDS: FUROSEMIDE 20 MG/ 2ML VIAL ONE (22:05)
[2023-05-25] MEDS: FUROSEMIDE 20 MG/ 2ML VIAL IV ONE (22:06)
[2023-05-26 01:14] LABS: Hematocrit 26.4 % (36.0-45.0); Hemoglobin 8.6 g/dL (12.0-15.0)
[2023-05-26 06:15] LABS: Absolute Eosinophils 0.1 K/uL (0-0.5); Absolute Lymphocytes (CBC) 0.3 K/uL (0.7-4.9); Absolute Monocytes 0.6 K/uL (0.1-1.3); Absolute Neutrophil 5.2 K/uL (1.8-8.0); Basophils % 0.5 % (0-1.3); Eosinophils % 1.3 % (0-4.4); Hematocrit 26.8 % (36.0-45.0); Hemoglobin 9.1 g/dL (12.0-15.0); Lymphocytes % 4.8 % (15.3-44.8); MCH 30.2 pg (27.0-35.0); MCHC 34.1 g/dL (32.0-36.0); MCV 88.6 fL (80-100); MPV 9.8 fL (7.6-11.3); Neutrophils % 83.4 % (41.7-73.7); Nucleated Red Blood Cells % 0.1 % (0-0); Platelets 122 thou/uL (152-406); RBC Red Blood Cell Count 3.02 M/uL (3.86-4.86); Red Cell Distribution Width 15.2 % (12.1-15.2)
[2023-05-26 06:30] LABS: Magnesium 1.6 mg/dL (1.6-2.4); Phosphorus 3.4 mg/dL (2.5-4.9)
--- NOTE | 2023-05-26 06:38 | P.PN ---
Date of Service: 05/26/23 Subjective: Continues to not feel well coughing and sleeping this AM some nausea today ROS: 10 point ROS as noted above, otherwise negative Physical exam GEN: Sleeping, moans with eyes closed, uncomfortable HEENT: Normal conjunctiva, sclera anicteric CV: Regular rate and rhythm, no murmur noted, S1 S2 present Pulm: Bilaterally clear breath sounds, symmetrical chest wall movement, on 1 LNC ABD: NT/ND, soft and benign on palpation, hypoactive bowel sounds MSK: No joint tenderness Integumentary: Wound noted to right heel without significant erythema, swelling, dressing CDI Neuro: Normal speech, normal affect Vitals reviewed Assessment: Acute kidney injury with underlying CKD 3 Vancomycin toxicity Acute Toxic Metabolic Encephalopathy likely secondary to vancomycin toxicity Osteomyelitis of the right second toe middle and distal phalanx PAD Chronic systolic congestive heart failure with AICD/pacemaker in place Diabetes mellitus type 2insulin-dependent Hypertension Hyperlipidemia Chronic thrombocytopenia Dementia COVID Plan: Acute kidney injury with underlying CKD 3 Vancomycin toxicity Acute Toxic Metabolic Encephalopathy likely secondary to vancomycin toxicity Family reports some difficulty in obtaining outpatient labs with home health Unclear values of previous chemistries/Vanc trough as outpatient Renal ultrasound without obstructive findings Will need to be careful with IV fluids given chronic systolic congestive heart failure Hold Entresto, Lasix for now Nephrology Following- no dialysis 05/24, creatinine improving continued improvement in renal function- BUN/creatinine 33/4.01, GFR 11 vanc trough 05/22- 19.3 Dr. Shanks consulted- placed TDC 05/23 CT head 05/24 "No acute intracranial abnormality" Osteomyelitis of the right second toe middle and distal phalanx PAD Patient has PICC line in place, was supposed to receive antibioticsvancomycin through 06/13 for osteomyelitis Infectious disease recommends linezolid and cefepime (monitor platelets with linezolid) Continue aspirin, Plavix COVID positive Supportive care Chest Xray reports "Right IJ approach dialysis catheter with tip overlying the proximal SVC. No pneumothorax. Multifocal airspace disease that may reflect edema and/or pneumonia" Chronic systolic congestive heart failure with AICD/pacemaker in place Holding diuretics given acute kidney injury Continue amiodarone-takes for V. tach prevention Diabetes mellitus type 2insulin-dependent ACHS Accu-Chek, sliding scale insulin Hypertension Hyperlipidemia Continue home medications Chronic thrombocytopenia Anemia of chronic disease Platelets within normal limits at this time Monitor daily- Platelets 122 Continue aspirin, Plavix Hold subcu heparin if platelets less than 100 continue to monitor while on Linezolid (hold if platelets <100) H/H 6.8/20.8- one unit PRBC, recheck H/H 8.6/26.4 (05/24) H/H 9.1/26.8 (05/25)-stable Dementia Continue home medications DVT PPX: Heparin subcu Code status: Full Discharge Plan: Home
[2023-05-26] MEDS: EPOETIN ALFA 10,000 UNIT/ML VIAL SQ ONE (10:04)
[2023-05-26] MEDS: HYDRALAZINE HCL 20 MG/ML VIAL IV PRN (12:58)
[2023-05-26] MEDS ORDERED: SODIUM CHLORIDE 0.9% 10ML INJ IV PRN (14:08)
--- NOTE | 2023-05-26 14:23 | P.PN ---
Subjective Date of Service: 05/26/23 Chief Complaint: TERRY today Confused cr trending down will hold on starting HD General: awake and alert Neck: Supple. No elevated JVD. Heart: Regular rate and rhythm. Normal S1, S2. Chest: Clear to auscultation bilaterally. No rales or wheezes. , bruises around catheter site Abdomen: Soft and nontender. Extremities: no edema Assessment And Plan: #. Acute kidney injury secondary to vanc toxicity Non oliguric Cr trending down will hold on starting HD for now renal diet renal dose meds Cont gentle hydration Cr cont to improve, will dc TDC before discharge if cr cont to improve # Hypertension, controlled, Continue current treatment. #. Iron deficiency anemia. Continue IV iron. will give Epogen XX1 transfuse if Hb <7.0 #COVID 19 cont supportive care # Osteomyelitis. Continue current treatment. Keep holding vanc. Physical Examination - Vital Signs Temperature: 97.5 F Blood Pressure: 191/82 Pulse: 69 Respirations: 17 Pulse Ox (%): 98
--- NOTE | 2023-05-26 15:57 | RAD REPORT ---
EXAM DESCRIPTION: CTAbdomen Pelvis Wo Contrast - 05/26/2023 3:36 pm CLINICAL HISTORY: Intractable nausea COMPARISON: [facility] Protocol dated 04/14/2023; Abdomen Pelvis Wo Contrast dated 08/20/2022; Abdomen P chantal Wo Contrast dated 05/29/2017; Abdomen Pelvis Wo Contrast dated 11/11/2015 TECHNIQUE: CT of the abdomen and pelvis was performed. All CT scans are performed using dose optimization technique as appropriate and may include automated exposure control or mA/KV adjustment according to patient size. FINDINGS: Lower chest: Small bilateral effusions. Pacemaker leads. There is atelectasis and probable pulmonary edema in the lung bases. Liver: No acute abnormality or suspicious lesions. Biliary: Distended gallbladder with dense material. The gallbladder appears mildly thickened. This co uld be accentuated by motion. Stomach: The gastric wall appears prominent. Duodenum: No significant focal abnormality. Pancreas: No significant abnormality. Spleen: No significant abnormality. Adrenal: No suspicious lesions. Kidney/ureter: No hydronephrosis. No renal calculi. Retroperitoneum: No retroperitoneal adenopathy. Vascular: No aneurysm. Bowel: No significant focal abnormality. Peritoneum: Small volume pelvic free fluid. Body wall edema. Bladder: Grossly unremarkable. Reproductive: No adnexal masses. Bones: No acute fracture. Left hip arthroplasty. Grade 1 anterolisthesis of L4 on L5. Other: n/a IMPRESSION: Distended gallbladder with dense gallbladder contents. Indistinctness of the gallbladder wall could be due to some motion however suggest correlating with LFTs and right upper quadrant ultr asound to exclude cholecystitis. Prominent gastric wall which could reflect gastritis or this too may be accentuated by some motion. T he findings were less conspicuous on the CT from 04/14/2023. Probable pulmonary edema with small bilateral pleural effusions.
[2023-05-26] MEDS: PANTOPRAZOLE 40 MG INJ IVP SCH (21:13)
[2023-05-26] MEDS: DOXYCYCLINE 100 MG in NA CHLORIDE 0.9% 100 ML IVPB SCH (21:13)
[2023-05-26] MEDS: D5 0.9 NS 1,000 ML IV SCH (21:13)
[2023-05-27 05:38] LABS: HBsAG Nonreactive Report Report; Hepatitis B Core IgM Nonreactive (Nonreactive); Hepatitis B surface AG Interp. Nonreactive (Nonreactive)
--- NOTE | 2023-05-27 07:02 | P.PN ---
Date of Service: 05/27/23 Subjective: awake this morning, not answering specific questions. still refused anything by mouth kidney function improved ROS: 10 point ROS as noted above, otherwise negative Physical exam GEN: Awake and alert HEENT: Normal conjunctiva, sclera anicteric CV: RRR, normal S1-S2 Pulm: symmetrical chest wall movement, on RA ABD: Soft benign on palpation, bowel sounds present, NT/ND MSK: No joint tenderness Integumentary: Wound noted to right heel without significant erythema, swelling, dressing CDI Neuro: Normal speech, normal affect Vitals reviewed Assessment: Acute kidney injury with underlying CKD 3 Vancomycin toxicity Acute Toxic Metabolic Encephalopathy likely secondary to vancomycin toxicity Osteomyelitis of the right second toe middle and distal phalanx PAD Chronic systolic congestive heart failure with AICD/pacemaker in place Diabetes mellitus type 2insulin-dependent Hypertension Hyperlipidemia Chronic thrombocytopenia Dementia COVID Plan: Acute kidney injury with underlying CKD 3 Vancomycin toxicity Acute Toxic Metabolic Encephalopathy likely secondary to vancomycin toxicity Family reports some difficulty in obtaining outpatient labs with home health Unclear values of previous chemistries/Vanc trough as outpatient Renal ultrasound without obstructive findings Will need to be careful with IV fluids given chronic systolic congestive heart failure Hold Entresto, Lasix for now Nephrology Following- no dialysis 05/24, creatinine improving continued improvement in renal function- BUN/creatinine 34/3.34, GFR 14 vanc trough 05/22- 19.3 Dr. Shanks consulted- placed TDC 05/23 CT head 05/24 "No acute intracranial abnormality" Osteomyelitis of the right second toe middle and distal phalanx PAD Patient has PICC line in place, was supposed to receive antibioticsvancomycin through 06/13 for osteomyelitis Infectious disease recommends linezolid and cefepime (monitor platelets with linezolid) Continue aspirin, Plavix COVID positive Supportive care Chest Xray reports "Right IJ approach dialysis catheter with tip overlying the proximal SVC. No pneumothorax. Multifocal airspace disease that may reflect edema and/or pneumonia" Chronic systolic congestive heart failure with AICD/pacemaker in place Holding diuretics given acute kidney injury Continue amiodarone-takes for V. tach prevention Diabetes mellitus type 2insulin-dependent ACHS Accu-Chek, sliding scale insulin Hypertension Hyperlipidemia Continue home medications Chronic thrombocytopenia Anemia of chronic disease Platelets within normal limits at this time Monitor daily- Platelets 145 Continue aspirin, Plavix Hold subcu heparin if platelets less than 100 continue to monitor while on Linezolid (hold if platelets <100) one unit PRB (4/6) H/H 10.1/30.7 (8)-stable Dementia Continue home medications DVT PPX: Heparin subcu Code status: Full Discharge Plan: Home <Jannette Kimball - Last Filed: 05/27/23 18:26> Patient seen and examined. Patient complaining of nausea. She is refusing to eat or drink or medications. Family states that NG tube would not work because patient was immediately pull it out. CT abdomen pelvis done shows gastritis and possible cholecystitis Liver ultrasound and acute borderline acute cholecystitis versus edema. Will obtain HIDA scan. General surgery Dr. Shanks to follow. <sukhwinder anand - Last Filed: 05/27/23 20:10>
[2023-05-27 08:02] LABS: Absolute Lymphocytes (CBC) 0.2 K/uL (0.7-4.9); Absolute Monocytes 0.5 K/uL (0.1-1.3); Absolute Neutrophil 6.7 K/uL (1.8-8.0); Basophils % 0.6 % (0-1.3); Eosinophils % 0.4 % (0-4.4); Hematocrit 30.7 % (36.0-45.0); Hemoglobin 10.1 g/dL (12.0-15.0); Lymphocytes % 3.2 % (15.3-44.8); MCH 29.2 pg (27.0-35.0); MCHC 32.8 g/dL (32.0-36.0); MCV 89.1 fL (80-100); MPV 9.7 fL (7.6-11.3); Monocytes % 6.1 % (3.3-12.3); Neutrophils % 89.7 % (41.7-73.7); Nucleated Red Blood Cells % 0.1 % (0-0); Platelets 147 thou/uL (152-406); RBC Red Blood Cell Count 3.45 M/uL (3.86-4.86); Red Cell Distribution Width 15.9 % (12.1-15.2)
--- NOTE | 2023-05-27 08:14 | RAD REPORT ---
EXAM DESCRIPTION: US - Abdomen Exam Limited - 05/27/2023 5:22 am CLINICAL HISTORY: gall stones/cholecystitis COMPARISON: Abdomen Pelvis Wo Contrast dated 05/26/2023 TECHNIQUE: Sonographic grayscale and color flow images of the right upper abdominal quadrant were o btained. FINDINGS: The gallbladder demonstrates no gallstones. Mildly echogenic sludge. Fold at the gallbladd er fundus. Trace pericholecystic fluid. Gallbladder wall thickness is at the upper limit of normal, 3 mm. The common bile duct is normal measuring 3 mm. The liver demonstrates no findings of intrahepatic biliary dilatation. IMPRESSION: Equivocal upper limit of normal gallbladder wall thickness and trace pericholecystic flu id. Findings may relate to mild ongoing acute cholecystitis, however fluid overload can result in a s imilar appearance, please correlate clinically. Mildly echogenic gallbladder sludge. No gallstones.
[2023-05-27 08:17] LABS: Magnesium 1.7 mg/dL (1.6-2.4); Phosphorus 3.1 mg/dL (2.5-4.9)
[2023-05-27 08:37] LABS: Blood Morphology Comment NOT SEEN (NOT SEEN); Platelet Estimate DECR; White Blood Cell Scan OK (OK)
--- NOTE | 2023-05-27 09:02 | P.PN ---
Date of Service: 05/27/23 Infectious Disease Progress Note Chief Complaint: TERRY Subjective: IN no apparent distress. Renal function slightly improving. Decreased oxygen requirements. No wheezing. Patient reports foot pain and back pain. Physical Examination Temp Pulse Resp BP Pulse Ox 97.5 F 73 18 160/92 H 97 05/27/23 04:00 05/27/23 04:00 05/27/23 05:27 05/27/23 06:22 05/27/23 05:27 General: In no apparent distress, Oriented x1-2. HEENT: Atraumatic, Normocephalic. sclera nonicteric. Respiratory: Diminished. on room air. Cardiovascular: No edema. Pacemaker. Gastrointestinal: Normal bowel sounds, Soft and benign, Non-distended Integumentary: Right heel diabetic foot ulcer, dressing clean dry and intact. Laboratory Data - Reviewed Microbiology Data - Reviewed Imagings Data: - Reviewed Medication List: Reviewed Assessment and Plan Problem List Osteomyelitis of the Right 2nd toe Vancomycin Toxicity Acute Kidney Injury Chronic Kidney Disease stage III Peripheral Arterial Disease Chronic Systolic Congestive Heart Failure Hx Pacemaker Diabetes Mellitus type II Hypertenstion Hyperlipidemia Dementia Osteomyelitis of the Right 2nd toe - Patient was recently hospitalized and started on IV antibiotics for osteomyelitis right 2nd toe. She was discharged to home with home health and PICC line to continue IV Vancomycin x 6 weeks [05/02 to 06/13] - XR right foot 05/01: " Prominent diffuse osteopenia. Moderate calcaneal spurs. Bony destruction is seen involving the middle and distal phalanx of the second toe with soft tissue swelling compatible with osteomyelitis." - 05/16 vanco trough = 45. It is reported that there was difficulty obtaining labs and PICC line infusion complications as outpatient. - vanco levels trending down. - Started on Linezolid and Cefepime 05/20. - Given renal toxicity and elevated vanco trough, recommend continuing Linezolid and Cefepime IV to complete remainder of antibiotic course [05/02 to 06/13]. - Gram negative and gram positive coverage recommended given multiple comorbidities including diabetes. - No leukocytosis. COVID-positive - 05/23: postive covid. -Supportive care - 48-hour Tmax 100.6 F TERRY on CKD 3 Vancomycin toxicity -Temporary dialysis cath placement 05/23 Recommendations - Osteomyelitis: Recommend continuing Linezolid and Cefepime IV to complete remainder of antibiotic course [05/02 to 06/13]. - COVID: Continue supportive care. Continue to monitor. -Monitor platelet count closely as Linezolid has increased risk of thrombocytopenia in those with altered renal function. - If platelet count drops to less than 100, please contact physician to consider alternative option. - TERRY on CKD: Primary dialysis cath placed 05/23 - Current plan to discharge home with home health. - Recommend obtaining CBC and BMP at least once weekly, twice weekly if possible. - right heel wound care per wound care team. Pressure offloading measures. Case discussed with Enedelia Levi
[2023-05-27] MEDS: ALBUTEROL 2.5 MG/3 ML NEB SOL NEB PRN (16:37)
[2023-05-27] MEDS: LINEZOLID 600 MG IVPB 600 MG/300 ML BAG IV SCH (19:50)
--- NOTE | 2023-05-27 21:53 | RAD REPORT ---
EXAM DESCRIPTION: RAD - Chest Single View - 05/27/2023 9:46 pm CLINICAL HISTORY: pneumonia Chest pain. COMPARISON: <Comparisons> FINDINGS: Portable technique limits examination quality. Extensive bilateral pulmonary opacities may represent pulmonary edema or pneumonia. Lung aeration marquita ears unchanged since comparative study. The heart is moderately enlarged. Single lead pacer/ defibril lator device present.Right-sided venous catheter tip in the SVC.
[2023-05-27] MEDS: THIAMINE 200 MG/2 ML INJ IVP SCH (22:10)
[2023-05-28] MEDS: FUROSEMIDE 40 MG/4 ML VIAL IV SCH (00:35)
[2023-05-28 04:15] LABS: Absolute Lymphocytes (CBC) 0.3 K/uL (0.7-4.9); Absolute Monocytes 0.4 K/uL (0.1-1.3); Absolute Neutrophil 5.4 K/uL (1.8-8.0); Basophils % 0.4 % (0-1.3); Eosinophils % 0.2 % (0-4.4); Hematocrit 28.4 % (36.0-45.0); Hemoglobin 9.6 g/dL (12.0-15.0); MCHC 33.7 g/dL (32.0-36.0); MCV 88.8 fL (80-100); MPV 9.6 fL (7.6-11.3); Monocytes % 6.5 % (3.3-12.3); Platelets 131 thou/uL (152-406); Red Cell Distribution Width 15.5 % (12.1-15.2)
[2023-05-28 04:24] LABS: Neutrophils % 87.9 % (41.7-73.7)
[2023-05-28 04:33] LABS: Anion Gap 9.6 mEq/L (5.0-15.0); Magnesium 1.6 mg/dL (1.6-2.4); Potassium 3.6 mEq/L (3.5-5.1); Thyroid Stimulating Hormone 1.5 uIU/mL (0.358-3.740)
[2023-05-28 04:43] LABS: Specific Gravity 1.012 (1.005-1.030); Sqamous Epithelial <5 /HPF (None Seen); Urine Bacteria <20 /HPF (<20); Urine Bilirubin NEGATIVE (Negative); Urine Blood Negative (Negative); Urine Clarity Extremely Turbid (Clear); Urine Color Light-Yellow (Yellow); Urine Culture Reflex Order NOT NEEDED; Urine Glucose NEGATIVE (Negative); Urine Ketones NEGATIVE (Negative); Urine Micro Reflex YN NO BILL MICROSCOPIC; Urine Mucus Slight /HPF (None Seen); Urine Nitrite NEGATIVE (Negative); Urine Protein 1+ (Negative); Urine RBC None Seen /HPF (None Seen); Urine Urobilinogen Normal (Normal); Urine WBC <5 /HPF (<5); Urine pH 5.5 (5.0-7.0)
[2023-05-28] MEDS: HYDRALAZINE HCL 20 MG/ML VIAL IV PRN (07:58)
--- NOTE | 2023-05-28 08:45 | PN ---
Date of Progress Note: 05/27/2023 Chief Complaint: Acute kidney injury on chronic kidney disease. Subjective: The patient had catheter placed on May 23. Procedure was done in the late afternoon and dialysis was scheduled . The patient has some altered pr eviously she was treated with vancomycin for osteomyelitis, and she developed acute kidney injury due to vancomycin toxicity. She has nonoliguric renal function, and renal function has improved somewha t over the 24 hours; however, she is complaining of generalized weakness. She refused to eat and she will have Speech Therapy evaluation. The patient has multiple medical problems, including history o f cardiomyopathy, ICD, Heart: S1, S2. Abdomen: Soft. Extremities: Some edema. Impression And Plan: 1.Acute kidney injury. The patient will have dialysis heart failure. 2.Hyponatremia due to fluid overload. The patient currently . 3. . 4.Iron-deficiency anemia. Monitor hemoglobin level. KELVIN/JAROCHO Voice ID: [id number] Report ID: [id number]
--- NOTE | 2023-05-28 08:56 | P.PN ---
Date of Service: 05/28/23 Infectious Disease Progress Note Chief Complaint: TERRY Subjective: In no apparent distress. Patient reportedly combative when RN attempts to change dressings or touch patient. Physical Examination Temp Pulse Resp BP Pulse Ox 97.7 F 82 20 182/81 H 96 05/28/23 04:00 05/28/23 04:00 05/28/23 08:00 05/28/23 07:59 05/28/23 08:00 General: In no apparent distress, Oriented x1-2. HEENT: Atraumatic, Normocephalic. sclera nonicteric. Respiratory: Diminished. on room air. Cardiovascular: No edema. Pacemaker. Gastrointestinal: Normal bowel sounds, Soft and benign, Non-distended Integumentary: Right heel diabetic foot ulcer, dressing clean dry and intact. Laboratory Data - Reviewed Microbiology Data - Reviewed Imagings Data: - Reviewed Medication List: Reviewed Assessment and Plan Problem List Osteomyelitis of the Right 2nd toe Vancomycin Toxicity Acute Kidney Injury Chronic Kidney Disease stage III Peripheral Arterial Disease Chronic Systolic Congestive Heart Failure Hx Pacemaker Diabetes Mellitus type II Hypertenstion Hyperlipidemia Dementia Osteomyelitis of the Right 2nd toe - Patient was recently hospitalized and started on IV antibiotics for osteomyelitis right 2nd toe. She was discharged to home with home health and PICC line to continue IV Vancomycin x 6 weeks [05/02 to 06/13] - XR right foot 05/01: " Prominent diffuse osteopenia. Moderate calcaneal spurs. Bony destruction is seen involving the middle and distal phalanx of the second toe with soft tissue swelling compatible with osteomyelitis." - 05/16 vanco trough = 45. It is reported that there was difficulty obtaining labs and PICC line infusion complications as outpatient. - vanco levels trending down. - Started on Linezolid and Cefepime 05/20. - Given renal toxicity and elevated vanco trough, recommend continuing Linezolid and Cefepime IV to complete remainder of antibiotic course [05/02 to 06/13]. - Gram negative and gram positive coverage recommended given multiple comorbidities including diabetes. COVID-positive - 05/23: postive covid. -Supportive care - 48-hour Tmax 100.6 F TERRY on CKD 3 Vancomycin toxicity -Temporary dialysis cath placement 05/23 Recommendations - Osteomyelitis: Recommend continuing Linezolid and Cefepime IV to complete remainder of antibiotic course [05/02 to 4/26]. - Follow up with urine culture results. - COVID: Continue supportive care. Continue to monitor. -Monitor platelet count closely as Linezolid has increased risk of thrombocytopenia in those with altered renal function. - If platelet count drops to less than 100, please contact physician to consider alternative option. - TERRY on CKD: Primary dialysis cath placed 05/23 - Current plan to discharge home with home health. - Recommend obtaining CBC and BMP at least once weekly, twice weekly if possible. - right heel wound care per wound care team. Pressure offloading measures. Case discussed with Enedelia Levi
--- NOTE | 2023-05-28 15:56 | P.PN ---
Date of Service: 05/28/23 Subjective: Awake, agitated Not following commands Refusing PO food/water/meds ROS: 10 point ROS as noted above, otherwise negative Physical exam GEN: Awake and alert, repeated groaning, saying "No" HEENT: Normal conjunctiva, sclera anicteric CV: RRR, normal S1-S2 Pulm: symmetrical chest wall movement, on RA ABD: Soft benign on palpation, bowel sounds present, NT/ND MSK: No joint tenderness Integumentary: Wound noted to right heel without significant erythema, swelling, dressing CDI Neuro: Normal speech, normal affect Vitals reviewed Assessment: Acute kidney injury with underlying CKD 3 Vancomycin toxicity Acute Toxic Metabolic Encephalopathy likely secondary to vancomycin toxicity/COVID-19 Oral thrush Rule out cholecystitis Osteomyelitis of the right second toe middle and distal phalanx PAD Chronic systolic congestive heart failure with AICD/pacemaker in place Diabetes mellitus type 2insulin-dependent Hypertension Hyperlipidemia Chronic thrombocytopenia Dementia COVID Plan: Acute kidney injury with underlying CKD 3 Vancomycin toxicity Acute Toxic Metabolic Encephalopathy likely secondary to vancomycin toxicity/COVID-19 Oral thrush Family reports some difficulty in obtaining outpatient labs with home health Unclear values of previous chemistries/Vanc trough as outpatient Renal ultrasound without obstructive findings Nephrology Following- has had 2 dialysis sessions now continued improvement in renal function Dr. Shanks consulted- placed TDC 05/23 CT head 05/24 "No acute intracranial abnormality" Still with AMS/confusion/agitation Cefepime stopped 05/26, had dialysis 05/27 Refusing all PO meds/food/water, plan to start TPN as per family she will immediately pull an NGT/dobhoff out Start IV antifungal 05/27 Rule out cholecystitis Abdominal ultrasound performed shows equivocal upper limit of normal gallbladder wall thickness and trace Derick cystic fluid which may be related to mild ongoing acute cholecystitis or fluid overload can have similar appearance. Mildly echogenic gallbladder sludge. Plan to obtain HIDA scan although patient was unable to cooperate with exam Does not appear to have significant right upper quadrant/abdominal tenderness Monitor LFTs, monitor for fevers Osteomyelitis of the right second toe middle and distal phalanx PAD Patient has PICC line in place, was supposed to receive antibioticsvancomycin through 06/13 for osteomyelitis Infectious disease recommends linezolid and cefepime (monitor platelets with linezolid) Cefepime DC'd 05/26 concern for encephalopathy related to cefepime await further recs from ID Continue aspirin, Plavix COVID positive Supportive care Chest Xray reports "Right IJ approach dialysis catheter with tip overlying the proximal SVC. No pneumothorax. Multifocal airspace disease that may reflect edema and/or pneumonia" On room air Not a good candidate for antivirals given TERRY/comorbidities Chronic systolic congestive heart failure with AICD/pacemaker in place Holding diuretics given acute kidney injury Continue amiodarone-takes for V. tach prevention Diabetes mellitus type 2insulin-dependent ACHS Accu-Chek, sliding scale insulin Hypertension Hyperlipidemia Continue home medications Chronic thrombocytopenia Anemia of chronic disease Platelets within normal limits at this time Monitor daily- Platelets 145 Continue aspirin, Plavix Hold subcu heparin if platelets less than 100 continue to monitor while on Linezolid (hold if platelets <100) one unit PRB (05/24) Dementia Continue home medications DVT PPX: Heparin subcu Code status: Full Discharge Plan: Home <Armond Philip - Last Filed: 05/28/23 15:50> Patient seen and examined on rounds this morning with [employer] CLERK Cedrick. I performed a substantial part of the MDM during this patient's care today as noted above in the plan of care. I agree with plan of care as noted above with the following additions / corrections: confusion / not wanting to eat since 05/24 per family she has been more confused, agitated, and not following commands at times BUN was uptrending, and was after ~2 days of cefepime encephalopathy possibly secondary to BUN, cefepime, or other now ~2 days of not taking oral meds and several days of minimal to no oral intake/nutrition will start TPN, consult pharmacist nephro updated pt with HD today if BUN/cefepime, would expect improvement soon family state patient seemed more awake/opening eyes today, but still not back to normal. <Bruce Baig - Last Filed: 05/28/23 17:40>
[2023-05-28] MEDS: HYDROMORPHONE HCL 0.5 MG/0.5 ML INJ IV PRN (16:03)
[2023-05-28] MEDS ORDERED: FLUCONAZOLE 200mg IVPB 200 MG/100 ML BAG IV SCH (17:00)
[2023-05-28] MEDS: AA 5%/D20W/ELECTROLYTES-TPN 2,000 ML, Lipids 20% 250 ML with MULTIVITAMINS INJ 10 ML IV SCH (18:56)
[2023-05-28] MEDS: MAGNESIUM SULFATE 1 gm IVPB 1 GM/100 ML BAG IV ONE (22:17)
[2023-05-28] MEDS: POTASSIUM PHOS IN 0.9 % NACL 15 MMOL/250 ML BAG IV ONE (23:50)
--- NOTE | 2023-05-29 04:12 | PN ---
Date of Progress Note: 05/28/2023 Chief Complaint: Acute kidney injury on chronic kidney disease. Subjective: The patient is undergoing dialysis for acute kidney failure. She has encephalopathy. P reviously, she was treated with vancomycin for osteomyelitis and developed vancomycin toxicity as wel l as encephalopathy. Renal function has declined, and vancomycin was stopped. The patient had tunne led dialysis catheter placed on May 23. She was initiated on dialysis for metabolic clear ance as well as to obtain ultrafiltration. Chest x-ray showed some vascular congestion and multifoca l pneumonia. The patient has COVID positive test. The patient has multiple medical problems, includ ing history of congestive heart failure, AICD. She is tolerating Lasix, although she was started on IV fluids because of poor p.o. intake. Currently, the patient is to have TPN. Review of Systems: Denies chest pain, palpitation. Physical Examination: Lungs: Few rhonchi. Heart: S1, S2. Abdomen: Soft. Extremities: Slight edema in both legs. Impression And Plan: 1.Acute kidney injury. Dialysis was done today for metabolic clearance and ultrafiltration. The sana roberts has nonoliguric urine output, although the patient was started on dialysis because of possible uremic syndrome, which was associated with some altered mental status as well as decreased appetite. The patient will continue dialysis and plan is to re-evaluate renal panel, and electrolyte panel. 2.Hyponatremia due to fluid overload. The patient is on IV Lasix as well as ultrafiltration was don e with dialysis to control fluid overload. 3.Congestive heart failure. Continue hydralazine for blood pressure control. 4.Uncontrolled hypertension. The patient cannot take by mouth medication. Continue IV hydralazine. 5.Iron-deficiency anemia. Monitor hemoglobin level. EB/MODL Voice ID: [id number] Report ID: [id number]
[2023-05-29 05:22] LABS: Absolute Eosinophils 0.1 K/uL (0-0.5); Absolute Lymphocytes (CBC) 0.4 K/uL (0.7-4.9); Absolute Monocytes 0.4 K/uL (0.1-1.3); Basophils % 0.4 % (0-1.3); Hematocrit 28.2 % (36.0-45.0); Hemoglobin 9.5 g/dL (12.0-15.0); Lymphocytes % 7.5 % (15.3-44.8); MCH 29.9 pg (27.0-35.0); MCHC 33.6 g/dL (32.0-36.0); MCV 89.2 fL (80-100); MPV 9.3 fL (7.6-11.3); Monocytes % 6.6 % (3.3-12.3); Neutrophils % 84.5 % (41.7-73.7); Nucleated Red Blood Cells % 0.1 % (0-0); Platelets 116 thou/uL (152-406); RBC Red Blood Cell Count 3.16 M/uL (3.86-4.86); Red Cell Distribution Width 15.7 % (12.1-15.2)
[2023-05-29 05:45] LABS: Albumin 2.2 g/dL (3.4-5.0); Albumin/Globulin Ratio 0.6 (1.1-1.8); Anion Gap 9.5 mEq/L (5.0-15.0); Bilirubin Total 0.3 mg/dL (0.2-1.0); Magnesium 1.7 mg/dL (1.6-2.4); Phosphorus 2.5 mg/dL (2.5-4.9); Potassium 3.5 mEq/L (3.5-5.1); Protein, Total 6.2 g/dL (6.4-8.2)
--- NOTE | 2023-05-29 07:51 | RAD REPORT ---
EXAM DESCRIPTION: RAD - Chest Single View - 05/29/2023 4:24 am CLINICAL HISTORY: pneumonia Chest pain. COMPARISON: Chest Single View dated 05/27/2023; Chest Single View dated 05/24/2023; Chest Single View da estrella 05/24/2023; Chest Single View dated 05/05/2023 FINDINGS: Portable technique limits examination quality. Bilateral pulmonary opacities, greatest in the right lung base, appear essentially unchanged since co mparative study. The heart is moderately enlarged. Right-sided venous catheter its tip in the SVC. Si ngle lead pacer/defibrillator device. Right-sided PICC line has tip in the SVC region. IMPRESSION: No significant change in lung aeration seen since comparative study.
--- NOTE | 2023-05-29 09:11 | P.PN ---
Date of Service: 05/29/23 Infectious Disease Progress Note Chief Complaint: TERRY Subjective: ROS unable to obtain- incomprehensible sounds, confused. no acute events overnight. On room air. Physical Examination Temp Pulse Resp BP Pulse Ox 97.1 F 86 20 200/78 H 98 05/29/23 04:00 05/29/23 08:08 05/29/23 08:08 05/29/23 08:08 05/29/23 08:08 General: In no apparent distress. Confused. Not oriented. HEENT: Atraumatic, Normocephalic. sclera nonicteric. Respiratory: Diminished. on room air. Cardiovascular: No edema. Pacemaker. Gastrointestinal: Normal bowel sounds, Soft and benign, Non-distended Integumentary: Right heel diabetic foot ulcer, dressing clean dry and intact. Laboratory Data - Reviewed Microbiology Data - Reviewed Imagings Data: - Reviewed Medication List: Reviewed Assessment and Plan Problem List Osteomyelitis of the Right 2nd toe Vancomycin Toxicity Acute Kidney Injury Chronic Kidney Disease stage III Peripheral Arterial Disease Chronic Systolic Congestive Heart Failure Hx Pacemaker Diabetes Mellitus type II Hypertenstion Hyperlipidemia Dementia Osteomyelitis of the Right 2nd toe - Patient was recently hospitalized and started on IV antibiotics for osteomyelitis right 2nd toe. She was discharged to home with home health and PICC line to continue IV Vancomycin x 6 weeks [05/02 to 06/13] - XR right foot 05/01: " Prominent diffuse osteopenia. Moderate calcaneal spurs. Bony destruction is seen involving the middle and distal phalanx of the second toe with soft tissue swelling compatible with osteomyelitis." - 05/16 vanco trough = 45. It is reported that there was difficulty obtaining labs and PICC line infusion complications as outpatient. - vanco levels trending down. - Started on Linezolid and Cefepime 05/20. - Given renal toxicity and elevated vanco trough, recommend continuing Linezolid and Cefepime IV to complete remainder of antibiotic course [05/02 to 06/13]. - Gram negative and gram positive coverage recommended given multiple comorbidities including diabetes. Candiduria - Urine culture 05/27: 2+ yeast -Started on fluconazole 05/27 COVID-positive - 05/23: postive covid. -Supportive care - 48-hour Tmax 100.6 F TERRY on CKD 3 Vancomycin toxicity -Temporary dialysis cath placement 05/23 - Creatinine improving Recommendations - Osteomyelitis: Recommend continuing Linezolid and Cefepime IV to complete remainder of antibiotic course [05/02 to 06/13]. - cefepime was placed on hold due to altered mental status. - Candiduria: started on fluconazole 05/27. Continue for 14 days. - COVID: Continue supportive care. Continue to monitor. -Monitor platelet count closely as Linezolid has increased risk of thrombocytopenia in those with altered renal function. - If platelet count drops to less than 100, please contact physician to consider alternative option. - TERRY on CKD: Primary dialysis cath placed 05/23 - Recommend obtaining CBC and BMP at least once weekly, twice weekly if possible. - right heel wound care per wound care team. Pressure offloading measures. Case discussed with Enedelia Levi
[2023-05-29] MEDS: POTASSIUM PHOS IN 0.9 % NACL 15 MMOL/250 ML BAG IV ONE (10:21)
[2023-05-29] MEDS: MAGNESIUM SULFATE 1 gm IVPB 1 GM/100 ML BAG IV ONE (10:21)
--- NOTE | 2023-05-29 13:12 | P.PN ---
Date of Service: 05/29/23 Subjective: Still agitated now making eye contact saying some words mild improvement from yesterday ROS: 10 point ROS as noted above, otherwise negative Physical exam GEN: Awake and alert, repeated groaning, saying more appropriate words today HEENT: Normal conjunctiva, sclera anicteric CV: RRR, normal S1-S2 Pulm: symmetrical chest wall movement, on RA ABD: Soft benign on palpation, bowel sounds present, NT/ND MSK: No joint tenderness Integumentary: Wound noted to right heel without significant erythema, swelling, dressing CDI Neuro: Normal speech, normal affect Vitals reviewed Assessment: Acute kidney injury with underlying CKD 3 Vancomycin toxicity Acute Toxic Metabolic Encephalopathy likely secondary to vancomycin toxicity/COVID-19 Oral thrush Rule out cholecystitis Osteomyelitis of the right second toe middle and distal phalanx PAD Chronic systolic congestive heart failure with AICD/pacemaker in place Diabetes mellitus type 2insulin-dependent Hypertension Hyperlipidemia Chronic thrombocytopenia Dementia COVID Plan: Acute kidney injury with underlying CKD 3 Vancomycin toxicity Acute Toxic Metabolic Encephalopathy likely secondary to vancomycin toxicity/COVID-19 Oral thrush Family reports some difficulty in obtaining outpatient labs with home health Unclear values of previous chemistries/Vanc trough as outpatient Renal ultrasound without obstructive findings continued improvement in renal function Dr. Shanks consulted- placed TDC 05/23 CT head 05/24 "No acute intracranial abnormality" Still with AMS/confusion/agitation Cefepime stopped 05/26, had dialysis 05/27 Refusing all PO meds/food/water, as per family she will immediately pull an NGT/dobhoff out TPN started 05/27 Start IV antifungal 05/27 Mental status with mild improvement Rule out cholecystitis Abdominal ultrasound performed shows equivocal upper limit of normal gallbladder wall thickness and trace paul cholecystic fluid which may be related to mild ongoing acute cholecystitis or fluid overload can have similar appearance. Mildly echogenic gallbladder sludge. Plan to obtain HIDA scan although patient was unable to cooperate with exam Does not appear to have significant right upper quadrant/abdominal tenderness Monitor LFTs, monitor for fevers Osteomyelitis of the right second toe middle and distal phalanx PAD Patient has PICC line in place, was supposed to receive antibioticsvancomycin through 06/13 for osteomyelitis Infectious disease recommends linezolid and cefepime (monitor platelets with linezolid) Cefepime DC'd 4/8 concern for encephalopathy related to cefepime await further recs from ID Continue aspirin, Plavix COVID positive Supportive care Chest Xray reports "Right IJ approach dialysis catheter with tip overlying the proximal SVC. No pneumothorax. Multifocal airspace disease that may reflect edema and/or pneumonia" On room air Not a good candidate for antivirals given TERRY/comorbidities Chronic systolic congestive heart failure with AICD/pacemaker in place Holding diuretics given acute kidney injury Continue amiodarone-takes for V. tach prevention Diabetes mellitus type 2insulin-dependent ACHS Accu-Chek, sliding scale insulin Hypertension Hyperlipidemia Continue home medications Chronic thrombocytopenia Anemia of chronic disease Platelets within normal limits at this time Monitor daily- Platelets 145 Continue aspirin, Plavix Hold subcu heparin if platelets less than 100 continue to monitor while on Linezolid (hold if platelets <100) one unit PRB (05/24) Dementia Continue home medications DVT PPX: Heparin subcu Code status: Full Discharge Plan: Home
--- NOTE | 2023-05-30 01:11 | PN ---
Date of Progress Note: 05/29/2023 Chief Complaint: Acute kidney injury on chronic kidney disease. Subjective: The patient had dialysis catheter placed and dialysis was done yesterday. The patient i s bedbound. She has some encephalopathy. Today, she is more alert, although she still remains confu sed. Refusing p.o. intake. Review of Systems: Unobtainable due to condition. Denies pain. Physical Examination: Lungs: Clear. Heart: S1, S2. Abdomen: Soft, benign. Extremities: Trace edema. Dressing in place. Impression And Plan: 1.Acute kidney injury chronic kidney disease stage 3. Renal function now has improved si gnificantly over last 48 hours. Plan is to continue dialysis. Next dialysis is scheduled tomorrow. 2.COVID continue recommendation as per Primary team. 3.Osteomyelitis. The patient is on antibiotic. 4.Hypertension. Continue blood pressure medication. was started for blood pressure cont rol. 5.Anemia. Monitor hemoglobin level. 6.History of hypertensive heart disease. The patient is on IV Lasix for congestive heart failure. Plan is to . 7.The patient is refusing p.o. intake. TPN was started. 8.Hypophosphatemia. Potassium phosphate ordered for treatment of hypophosphatemia. Monitor electro lytes closely. EB/MODL Voice ID: [id number] Report ID: [id number]
--- NOTE | 2023-05-30 08:40 | P.PN ---
Infectious Disease Progress Note Chief Complaint: TERRY Subjective: Mentation improved today. Patient now answering questions, oriented x1-2. Denies any pain. + cough Physical Examination Temp Pulse Resp BP Pulse Ox 97.1 F 81 18 191/75 H 97 05/30/23 04:00 05/30/23 04:00 05/30/23 04:00 05/30/23 04:00 05/30/23 04:00 General: In no apparent distress. Oriented x1-2. HEENT: Atraumatic, Normocephalic. sclera nonicteric. Respiratory: Diminished. on room air. +cough. Cardiovascular: RRR. Pacemaker left chest. Gastrointestinal: Normal bowel sounds, Soft and benign, Non-distended Integumentary: Right heel diabetic foot ulcer, dressing clean dry and intact. Laboratory Data - Reviewed Microbiology Data - Reviewed Imagings Data: - Reviewed Medication List: Reviewed Assessment and Plan Problem List Osteomyelitis of the Right 2nd toe Vancomycin Toxicity Acute Kidney Injury Chronic Kidney Disease stage III Peripheral Arterial Disease Chronic Systolic Congestive Heart Failure Hx Pacemaker Diabetes Mellitus type II Hypertenstion Hyperlipidemia Dementia Osteomyelitis of the Right 2nd toe - Patient was recently hospitalized and started on IV antibiotics for osteomyelitis right 2nd toe. She was discharged to home with home health and PICC line to continue IV Vancomycin x 6 weeks [05/02 to 06/13] - XR right foot 05/01: " Prominent diffuse osteopenia. Moderate calcaneal spurs. Bony destruction is seen involving the middle and distal phalanx of the second toe with soft tissue swelling compatible with osteomyelitis." - 05/16 vanco trough = 45. It is reported that there was difficulty obtaining labs and PICC line infusion complications as outpatient. - vanco levels trending down. - Started on Linezolid and Cefepime 05/20. - Given renal toxicity and elevated vanco trough, recommend continuing Linezolid and Cefepime IV to complete remainder of antibiotic course [05/02 to 06/13]. - Gram negative and gram positive coverage recommended given multiple comorbidities including diabetes. Candiduria - Urine culture 05/27: 2+ yeast -Started on fluconazole 05/27 COVID-positive - 05/23: postive covid. -Supportive care - Afebrile >48 hours. TERRY on CKD 3 Vancomycin toxicity -Temporary dialysis cath placement 05/23 - Creatinine improving Recommendations - Osteomyelitis: Recommend continuing Linezolid and Cefepime IV to complete remainder of antibiotic course [05/02 to 06/13]. - cefepime was placed on hold due to altered mental status. - Candiduria: continue fluconazole x 14 days (05/27-06/09) - COVID: Continue supportive care. Continue to monitor. -Monitor platelet count closely as Linezolid has increased risk of thrombocyto penia in those with altered renal function. - If platelet count drops to less than 100, please contact physician to consider alternative option. - TERRY on CKD: Primary dialysis cath placed 05/23 - Recommend obtaining CBC and BMP at least once weekly, twice weekly if possible. - right heel wound care per wound care team. Pressure offloading measures. Case discussed with Enedelia Levi
[2023-05-30] MEDS: FLUCONAZOLE 200mg IVPB 200 MG/100 ML BAG IV SCH (10:01)
--- NOTE | 2023-05-30 10:25 | P.PN ---
Date of Service: 05/30/23 Subjective: Much more alert today still confused having intermittent cough not taking anything PO ROS: 10 point ROS as noted above, otherwise negative Physical exam GEN: Awake and alert, repeated groaning, saying more appropriate words today HEENT: Normal conjunctiva, sclera anicteric CV: RRR, normal S1-S2 Pulm: symmetrical chest wall movement, on RA ABD: Soft benign on palpation, bowel sounds present, NT/ND MSK: No joint tenderness Integumentary: Wound noted to right heel without significant erythema, swelling, dressing CDI Neuro: Normal speech, normal affect Vitals reviewed Assessment: Acute kidney injury with underlying CKD 3 Vancomycin toxicity Acute Toxic Metabolic Encephalopathy likely secondary to vancomycin toxicity/COVID-19 Oral thrush Rule out cholecystitis Osteomyelitis of the right second toe middle and distal phalanx PAD Chronic systolic congestive heart failure with AICD/pacemaker in place Diabetes mellitus type 2insulin-dependent Hypertension Hyperlipidemia Chronic thrombocytopenia Dementia COVID Plan: Acute kidney injury with underlying CKD 3 Vancomycin toxicity Acute Toxic Metabolic Encephalopathy likely secondary to vancomycin toxicity/COVID-19 Oral thrush Family reports some difficulty in obtaining outpatient labs with home health Unclear values of previous chemistries/Vanc trough as outpatient Renal ultrasound without obstructive findings continued improvement in renal function Dr. Shanks consulted- placed TDC 05/23 CT head 05/24 "No acute intracranial abnormality" Still with AMS/confusion/agitation Cefepime stopped 05/26, has been getting HD Refusing all PO meds/food/water, as per family she will immediately pull an NGT/dobhoff out TPN started 05/27-continue Start IV antifungal 05/27 to be given after dialysis Mental status with improvement-encouraging PO intake/meds Rule out cholecystitis Abdominal ultrasound performed shows equivocal upper limit of normal gallbladder wall thickness and trace paul cholecystic fluid which may be related to mild ongoing acute cholecystitis or fluid overload can have similar appearance. Mildly echogenic gallbladder sludge. Plan to obtain HIDA scan although patient was unable to cooperate with exam Does not appear to have significant right upper quadrant/abdominal tenderness Monitor LFTs, monitor for fevers Abdominal exam not concerning for acute cholecystitis currently Osteomyelitis of the right second toe middle and distal phalanx PAD Patient has PICC line in place, was supposed to receive antibioticsvancomycin through 06/13 for osteomyelitis Infectious disease recommends linezolid and cefepime (monitor platelets with linezolid) Cefepime DC'd 05/26 concern for encephalopathy related to cefepime await further recs from ID Continue aspirin, Plavix COVID positive Supportive care Chest Xray reports "Right IJ approach dialysis catheter with tip overlying the proximal SVC. No pneumothorax. Multifocal airspace disease that may reflect edema and/or pneumonia" On room air Not a good candidate for antivirals given TERRY/comorbidities Chronic systolic congestive heart failure with AICD/pacemaker in place Holding diuretics given acute kidney injury Continue amiodarone-takes for V. tach prevention Diabetes mellitus type 2insulin-dependent ACHS Accu-Chek, sliding scale insulin Hypertension Hyperlipidemia Continue home medications Chronic thrombocytopenia Anemia of chronic disease Monitor daily Continue aspirin, Plavix Hold subcu heparin if platelets less than 100 continue to monitor while on Linezolid (hold if platelets <100) one unit PRB (05/24) Dementia Continue home medications DVT PPX: Heparin subcu Code status: Full Discharge Plan: Home
[2023-05-30] MEDS: HYDRALAZINE HCL 25 MG TABLET PO SCH (12:14)
[2023-05-30] MEDS: ACETAMINOPHEN 325 MG TABLET ONE (15:01)
--- NOTE | 2023-05-30 15:12 | PN ---
Date of Progress Note: 05/30/2023 Subjective: The patient was admitted to the hospital with acute kidney injury. Patient was started on dialysis. Objective: Vital Signs: When I saw the patient, blood pressure 191/75, pulse of 81, afebrile. Chest: Clear to auscultation. Heart: S1, S2. Systolic murmur. Abdomen: Soft, nontender. Extremity: Trace edema. Neuro: Confused. Laboratory Data: Hemoglobin 9.5, sodium 136, potassium 3.5, bicarb 27, BUN 22, creatinine 2.3, calci um 8.3, phosphorus 2.5, magnesium 1.7. Current Medications: The patient on, it includes: 1.IV iron. 2.Fluconazole. 3.Linezolid. 4.Carvedilol 12.5. 5.Atorvastatin. 6.Amiodarone. 7.Namenda. 8.Lasix 40 q.8. 9.Insulin. 10.Magnesium oxide. 11.TPN. Assessment And Plan: 1.Acute kidney injury secondary to toxic acute tubular necrosis, secondary to vancomycin toxicity. Was started on dialysis. Showing some recovery. Currently, I am going to continue to monitor the pa tient and we will monitor if kidney function continued to improve, we will consider holding the dialy sis. 2.Hypertension, not controlled. I am going to start the patient on hydralazine schedule and I will increase her carvedilol to 25 mg. 3.Hypophosphatemia. Hold all binder and continue p.r.n. supplement. 4.Osteomyelitis with vancomycin toxicity. Continue linezolid. Follow up with ID. NICO/JAROCHO Voice ID: [id number] Report ID: [id number]
[2023-05-30 15:34] LABS: Absolute Eosinophils 0.1 K/uL (0-0.5); Absolute Lymphocytes (CBC) 0.5 K/uL (0.7-4.9); Absolute Monocytes 0.2 K/uL (0.1-1.3); Absolute Neutrophil 5.2 K/uL (1.8-8.0); Basophils % 0.5 % (0-1.3); Eosinophils % 1.6 % (0-4.4); Hematocrit 29.6 % (36.0-45.0); Lymphocytes % 8.8 % (15.3-44.8); MCH 29.9 pg (27.0-35.0); MCHC 33.7 g/dL (32.0-36.0); MCV 88.7 fL (80-100); MPV 9.4 fL (7.6-11.3); Monocytes % 3.4 % (3.3-12.3); Neutrophils % 85.7 % (41.7-73.7); Nucleated Red Blood Cells % 0.2 % (0-0); Platelets 98 thou/uL (152-406); RBC Red Blood Cell Count 3.34 M/uL (3.86-4.86); Red Cell Distribution Width 15.6 % (12.1-15.2)
[2023-05-30] MEDS: AA 5%/D20W/ELECTROLYTES-TPN 2,000 ML IV SCH (17:32)
[2023-05-30 18:13] LABS: Albumin 2.3 g/dL (3.4-5.0); Albumin/Globulin Ratio 0.5 (1.1-1.8); Anion Gap 10.6 mEq/L (5.0-15.0); Bilirubin Total 0.4 mg/dL (0.2-1.0); Globulin 4.3 g/dL (2.3-3.5); Magnesium 1.5 mg/dL (1.6-2.4); Phosphorus 1.9 mg/dL (2.5-4.9); Potassium 3.6 mEq/L (3.5-5.1); Protein, Total 6.6 g/dL (6.4-8.2)
[2023-05-30 20:45] LABS: Blood Morphology Comment NOT SEEN (NOT SEEN); Platelet Estimate DECR; White Blood Cell Scan OK (OK)
[2023-05-30] MEDS: carvediloL 25 MG TAB PO SCH (21:00)
[2023-05-31 05:58] LABS: Absolute Eosinophils 0.2 K/uL (0-0.5); Absolute Lymphocytes (CBC) 0.8 K/uL (0.7-4.9); Absolute Monocytes 0.5 K/uL (0.1-1.3); Basophils % 0.5 % (0-1.3); Eosinophils % 2.5 % (0-4.4); Hematocrit 28.9 % (36.0-45.0); Hemoglobin 9.6 g/dL (12.0-15.0); Lymphocytes % 12.3 % (15.3-44.8); MCH 29.2 pg (27.0-35.0); MCHC 33.1 g/dL (32.0-36.0); MCV 88.4 fL (80-100); Monocytes % 7.7 % (3.3-12.3); Nucleated Red Blood Cells % 0.1 % (0-0); Platelets 93 thou/uL (152-406); RBC Red Blood Cell Count 3.27 M/uL (3.86-4.86); Red Cell Distribution Width 15.9 % (12.1-15.2)
[2023-05-31 06:06] LABS: Albumin 2.1 g/dL (3.4-5.0); Albumin/Globulin Ratio 0.5 (1.1-1.8); Anion Gap 8.4 mEq/L (5.0-15.0); Bilirubin Total 0.3 mg/dL (0.2-1.0); Magnesium 1.6 mg/dL (1.6-2.4); Phosphorus 2.5 mg/dL (2.5-4.9); Potassium 3.4 mEq/L (3.5-5.1); Protein, Total 6.1 g/dL (6.4-8.2)
--- NOTE | 2023-05-31 13:12 | P.PN ---
Date of Service: 05/31/23 Subjective: Alert, confused Still refusing PO meds/food/fluids on TPN ROS: 10 point ROS as noted above, otherwise negative Physical exam GEN: Awake and alert, repeated groaning, saying more appropriate words today HEENT: Normal conjunctiva, sclera anicteric CV: RRR, normal S1-S2 Pulm: symmetrical chest wall movement, on RA ABD: Soft benign on palpation, bowel sounds present, NT/ND MSK: No joint tenderness Integumentary: Wound noted to right heel without significant erythema, swelling, dressing CDI Neuro: Normal speech, normal affect Vitals reviewed Assessment: Acute kidney injury with underlying CKD 3 Vancomycin toxicity Acute Toxic Metabolic Encephalopathy likely secondary to vancomycin to xicity/COVID-19 Oral thrush Rule out cholecystitis Osteomyelitis of the right second toe middle and distal phalanx PAD Chronic systolic congestive heart failure with AICD/pacemaker in place Diabetes mellitus type 2insulin-dependent Hypertension Hyperlipidemia Chronic thrombocytopenia Dementia COVID Plan: Acute kidney injury with underlying CKD 3 Vancomycin toxicity Acute Toxic Metabolic Encephalopathy likely secondary to vancomycin toxicity/COVID-19 Oral thrush Family reports some difficulty in obtaining outpatient labs with home health Unclear values of previous chemistries/Vanc trough as outpatient Renal ultrasound without obstructive findings Dr. Shanks consulted- placed TDC 05/23 Cefepime stopped 05/26, has been getting HD Refusing all PO meds/food/water, as per family she will immediately pull an NGT/dobhoff out TPN started 05/27-continue Start IV antifungal 05/27 to be given daily Mental status with improvement-encouraging PO intake/meds neprhology considering trial of monitoring renal function without dialysis to assess for recovery Rule out cholecystitis Abdominal ultrasound performed shows equivocal upper limit of normal gallbladder wall thickness and trace paul cholecystic fluid which may be related to mild ongoing acute cholecystitis or fluid overload can have similar appearance. Mildly echogenic gallbladder sludge. Plan to obtain HIDA scan although patient was unable to cooperate with exam Does not appear to have significant right upper quadrant/abdominal tenderness Monitor LFTs, monitor for fevers Abdominal exam not concerning for acute cholecystitis currently Osteomyelitis of the right second toe middle and distal phalanx PAD Patient has PICC line in place, was supposed to receive antibioticsvancomycin through 06/13 for osteomyelitis Infectious disease recommends linezolid and cefepime (monitor platelets with linezolid) Cefepime DC'd 05/26 concern for encephalopathy related to cefepime await further recs from ID Continue aspirin, Plavix COVID positive Supportive care Chest Xray reports "Right IJ approach dialysis catheter with tip overlying the proximal SVC. No pneumothorax. Multifocal airspace disease that may reflect edema and/or pneumonia" On room air Not a good candidate for antivirals given TERRY/comorbidities Chronic systolic congestive heart failure with AICD/pacemaker in place Holding diuretics given acute kidney injury Continue amiodarone-takes for V. tach prevention Diabetes mellitus type 2insulin-dependent ACHS Accu-Chek, sliding scale insulin Hypertension Hyperlipidemia Continue home medications Chronic thrombocytopenia Anemia of chronic disease Monitor daily Continue aspirin, Plavix Hold subcu heparin if platelets less than 100 continue to monitor while on Linezolid (hold if platelets <100) one unit PRB (05/24) Dementia Continue home medications DVT PPX: Heparin subcu Code status: Full Discharge Plan: Home
--- NOTE | 2023-05-31 15:04 | P.PN ---
Infectious Disease Progress Note Chief Complaint: TERRY Subjective: Patient denies any complaints at this time. Reportedly refusing any PO medications/food. No acute events overnight. Physical Examination Temp Pulse Resp BP Pulse Ox 99.8 F 80 19 170/75 H 96 05/31/23 12:00 05/31/23 12:00 05/31/23 12:00 05/31/23 12:00 05/31/23 12:00 General: In no apparent distress. Confused. HEENT: Atraumatic, Normocephalic. sclera nonicteric. Respiratory: Diminished. on room air. +cough. Cardiovascular: RRR. Pacemaker left chest. Gastrointestinal: Normal bowel sounds, Soft and benign, Non-distended Integumentary: Right heel diabetic foot ulcer, dressing clean dry and intact. Laboratory Data - Reviewed Microbiology Data - Reviewed Imagings Data: - Reviewed Medication List: Reviewed Assessment and Plan Problem List Osteomyelitis of the Right 2nd toe Vancomycin Toxicity Acute Kidney Injury Chronic Kidney Disease stage III Peripheral Arterial Disease Chronic Systolic Congestive Heart Failure Hx Pacemaker Diabetes Mellitus type II Hypertenstion Hyperlipidemia Dementia Osteomyelitis of the Right 2nd toe - Patient was recently hospitalized and started on IV antibiotics for osteomyelitis right 2nd toe. She was discharged to home with home health and PICC line to continue IV Vancomycin x 6 weeks [05/02 to 06/13] - XR right foot 05/01: " Prominent diffuse osteopenia. Moderate calcaneal spurs. Bony destruction is seen involving the middle and distal phalanx of the second toe with soft tissue swelling compatible with osteomyelitis." - 05/16 vanco trough = 45. It is reported that there was difficulty obtaining labs and PICC line infusion complications as outpatient. - vanco levels trending down. - Started on Linezolid and Cefepime 05/20. - Given renal toxicity and elevated vanco trough, recommend continuing Linezolid and Cefepime IV to complete remainder of antibiotic course [05/02 to 06/13]. - Gram negative and gram positive coverage recommended given multiple comorbidities including diabetes. - Cefepime discontinued 05/26 due to altered mental status. Mentation has improved since discontinuation of cefepime. - Platelets now <100. Discontinue Linezolid 05/30. - start on Rocephin and Doxycycline 05/30 Candiduria - Urine culture 05/27: 2+ yeast -Started on fluconazole 05/27 COVID-positive - 05/23: postive covid. -Supportive care - Afebrile >48 hours. TERRY on CKD 3 Vancomycin toxicity -Temporary dialysis cath placement 05/23 - Creatinine improving Recommendations - Osteomyelitis: Recommend continuing antibiotic therapy x 6 weeks. [05/02 to 06/13]. - cefepime was placed on hold due to altered mental status, mentation im proving since discontinuation of cefepime. - platelet count <100. Discontinue Linezolid. --> start on Rocephin and Doxycycline - Candiduria: continue fluconazole x 14 days (05/27-06/09) - COVID: Continue supportive care. Continue to monitor. - TERRY on CKD: temporary dialysis cath placed 05/23 - right heel wound care per wound care team. Pressure offloading measures. Case discussed with Enedelia Levi
[2023-05-31] MEDS: INSULIN REGULAR (HUMAN) 100 UNIT/ML SQ SCH (18:23)
[2023-05-31] MEDS: DOXYCYCLINE 100 MG in NA CHLORIDE 0.9% 100 ML IVPB SCH (21:13)
--- NOTE | 2023-06-01 03:38 | PN ---
Date of Progress Note: 05/31/2023 Subjective: The patient is admitted to the hospital for COVID and acute kidney injury. The patient was started on dialysis. The patient is feeling better. Urine output is improving and renal functio n has improved somewhat. Review of Systems: Patient denies complaints. She cannot provide review of systems. She has encephalopathy. Physical Examination: Lungs: Clear to auscultation bilaterally. Heart: S1, S2. Abdomen: Soft. Extremities: Trace edema. Laboratory Data: Creatinine level 2.3, BUN 22, phosphorus 2.5, magnesium 1.7. Impression And Plan: 1.Acute kidney injury secondary to acute tubular necrosis and superimposed vancomycin toxicity. The patient was started on dialysis. Urine output is improving. Renal function showed some improvement . There is a slow recovery present. The patient was dialyzed yesterday. Plan is to re-evaluate sandy al panel and recommend dialysis if needed. 2.Hypertension. Continue hydralazine, and carvedilol dose was increased. 3.Hypophosphatemia. The patient is not taking binders. The patient will continue TPN. Currently, the patient refused p.o. intake. 4.Osteomyelitis. The patient is on linezolid. The patient was found to have vancomycin toxicity an d vancomycin was stopped. EB/MODL Voice ID: [id number] Report ID: [id number]
[2023-06-01 06:20] LABS: Absolute Eosinophils 0.2 K/uL (0-0.5); Absolute Lymphocytes (CBC) 0.8 K/uL (0.7-4.9); Absolute Monocytes 0.6 K/uL (0.1-1.3); Absolute Neutrophil 5.9 K/uL (1.8-8.0); Basophils % 0.6 % (0-1.3); Eosinophils % 2.3 % (0-4.4); Hematocrit 31.7 % (36.0-45.0); Hemoglobin 10.6 g/dL (12.0-15.0); Lymphocytes % 10.8 % (15.3-44.8); MCH 29.6 pg (27.0-35.0); MCHC 33.5 g/dL (32.0-36.0); MCV 88.6 fL (80-100); MPV 9.9 fL (7.6-11.3); Monocytes % 7.7 % (3.3-12.3); Neutrophils % 78.6 % (41.7-73.7); Nucleated Red Blood Cells % 0.2 % (0-0); Platelets 114 thou/uL (152-406); RBC Red Blood Cell Count 3.58 M/uL (3.86-4.86); Red Cell Distribution Width 15.7 % (12.1-15.2)
[2023-06-01 06:39] LABS: Albumin 2.2 g/dL (3.4-5.0); Albumin/Globulin Ratio 0.5 (1.1-1.8); Anion Gap 9.7 mEq/L (5.0-15.0); Bilirubin Total 0.3 mg/dL (0.2-1.0); Globulin 4.3 g/dL (2.3-3.5); Phosphorus 2.6 mg/dL (2.5-4.9); Protein, Total 6.5 g/dL (6.4-8.2)
[2023-06-01 06:41] LABS: Magnesium 1.5 mg/dL (1.6-2.4); Potassium 3.7 mEq/L (3.5-5.1)
[2023-06-01] MEDS: CEFTRIAXONE 1,000 MG in NA CHLORIDE 0.9% 50 ML IVPB SCH (10:21)
--- NOTE | 2023-06-01 12:09 | P.PN ---
Date of Service: 06/01/23 Subjective: Alert, confused Still refusing PO meds/food/fluids on TPN No acute events overnight ROS: 10 point ROS as noted above, otherwise negative Physical exam GEN: Awake and alert, resting more easily, speech more coherent HEENT: Normal conjunctiva, sclera anicteric CV: RRR, normal S1-S2 Pulm: symmetrical chest wall movement, on RA ABD: Soft benign on palpation, bowel sounds present, NT/ND MSK: No joint tenderness Integumentary: Wound noted to right heel without significant erythema, swelling, dressing CDI Neuro: Normal speech, normal affect Vitals reviewed Assessment: Acute kidney injury with underlying CKD 3 Vancomycin toxicity Acute Toxic Metabolic Encephalopathy likely secondary to vancomycin toxicity/COVID-19 Oral thrush Rule out cholecystitis Osteomyelitis of the right second toe middle and distal phalanx PAD Chronic systolic congestive heart failure with AICD/pacemaker in place Diabetes mellitus type 2insulin-dependent Hypertension Hyperlipidemia Chronic thrombocytopenia Dementia COVID Plan: Acute kidney injury with underlying CKD 3 Vancomycin toxicity Acute Toxic Metabolic Encephalopathy likely secondary to vancomycin toxicity/COVID-19 Oral thrush Family reports some difficulty in obtaining outpatient labs with home health Unclear values of previous chemistries/Vanc trough as outpatient Renal ultrasound without obstructive findings Dr. Shanks consulted- placed TDC 05/23 Cefepime stopped 05/26, has been getting HD Refusing all PO meds/food/water, as per family she will immediately pull an NGT/dobhoff out TPN started 05/27-continue Start IV antifungal 05/27 to be given daily Mental status with improvement-encouraging PO intake/meds neprhology considering trial of monitoring renal function without dialysis to assess for recovery Rule out cholecystitis Abdominal ultrasound performed shows equivocal upper limit of normal gallbladder wall thickness and trace paul cholecystic fluid which may be related to mild ongoing acute cholecystitis or fluid overload can have similar appearance. Mildly echogenic gallbladder sludge. Plan to obtain HIDA scan although patient was unable to cooperate with exam Does not appear to have significant right upper quadrant/abdominal tenderness Monitor LFTs, monitor for fevers Abdominal exam not concerning for acute cholecystitis currently Osteomyelitis of the right second toe middle and distal phalanx PAD Patient has PICC line in place, was supposed to receive antibioticsvancomycin through 06/13 for osteomyelitis Infectious disease recommends linezolid and cefepime (monitor platelets with linezolid) Cefepime DC'd 05/26 concern for encephalopathy related to cefepime Linezolid discontinued 05/30 given thrombocytopenia Started on Rocephin/doxycycline by infectious disease 05/30 Platelet count improving today Continue aspirin, Plavix COVID positive Supportive care Chest Xray reports "Right IJ approach dialysis catheter with tip overlying the proximal SVC. No pneumothorax. Multifocal airspace disease that may reflect edema and/or pneumonia" On room air Not a good candidate for antivirals given TERRY/comorbidities Chronic systolic congestive heart failure with AICD/pacemaker in place Holding diuretics given acute kidney injury Continue amiodarone-takes for V. tach prevention Diabetes mellitus type 2insulin-dependent ACHS Accu-Chek, sliding scale insulin Hypertension Hyperlipidemia Continue home medications Chronic thrombocytopenia Anemia of chronic disease Monitor daily Continue aspirin, Plavix Hold subcu heparin if platelets less than 100 continue to monitor while on Linezolid (hold if platelets <100) one unit PRB (05/24) Dementia Continue home medications DVT PPX: Heparin subcu Code status: Full Discharge Plan: Home
[2023-06-01] MEDS: ALTEPLASE 2 MG/VIAL IV SCH (16:38)
[2023-06-01] MEDS: INSULIN REGULAR (HUMAN) 100 UNIT/ML SQ SCH (18:26)
--- NOTE | 2023-06-01 22:17 | P.PN ---
Subjective Date of Service: 06/01/23 Chief Complaint: TERRY Subjective: No new changes Physical Examination - Vital Signs Temperature: 99.2 F Blood Pressure: 157/64 Pulse: 77 Respirations: 20 Pulse Ox (%): 97 - Physical Exam General: Other (chronically ill-appearing) HEENT: Atraumatic, Normocephalic Neck: Supple Respiratory: Other (symmetric chest expansion) Cardiovascular: Normal S1 S2, No rubs, No murmurs Gastrointestinal: Soft and benign, No guarding Musculoskeletal: No clubbing Integumentary: No warmth Neurological: Normal tone Urinary: Other (no bladder distention) External genitalia: Deferred Rectal: Deferred Assessment And Plan - Plan 1. Acute kidney injury secondary to acute tubular necrosis and superimposed vancomycin toxicity. The patient was started on dialysis. Urine output is improving. Renal function showed some improvement. There is a slow recovery present. The patient was last dialyzed on 05/29. No acute indication for dialys is today. Reassess daily for further HD needs. 2. CKD3. Monitor renal panel. 3. Hypertension. BP meds adjusted. 4. Hypophosphatemia. Improved, monitor. 5. Osteomyelitis of R 2nd toe. Abx per ID service. 6. Covid infection. Per other services. 7. DM2. Mngt per primary team.
[2023-06-01] MEDS: MAGNESIUM SULFATE 1 gm IVPB 1 GM/100 ML BAG IV ONE (22:25)
[2023-06-02 04:05] LABS: Hemoglobin 9.3 g/dL (12.0-15.0); MCH 29.5 pg (27.0-35.0); MCHC 33.4 g/dL (32.0-36.0); MCV 88.3 fL (80-100); MPV 9.8 fL (7.6-11.3); Platelets 103 thou/uL (152-406); RBC Red Blood Cell Count 3.17 M/uL (3.86-4.86); Red Cell Distribution Width 15.5 % (12.1-15.2)
[2023-06-02 04:17] LABS: Anion Gap 9.2 mEq/L (5.0-15.0); Phosphorus 2.6 mg/dL (2.5-4.9); Potassium 3.2 mEq/L (3.5-5.1)
[2023-06-02] MEDS: INSULIN GLARGINE 100 UNIT/ML SQ SCH (10:33)
--- NOTE | 2023-06-02 11:05 | P.PN ---
Date of Service: 06/02/23 Subjective: Alert, confused continues to improve from a mental status perspective drank some water for the first time last night ROS: 10 point ROS as noted above, otherwise negative Physical exam GEN: Awake and alert, resting more easily, speech more coherent HEENT: Normal conjunctiva, sclera anicteric CV: RRR, normal S1-S2 Pulm: symmetrical chest wall movement, on RA ABD: Soft benign on palpation, bowel sounds present, NT/ND MSK: No joint tenderness Integumentary: Wound noted to right heel without significant erythema, swelling, dressing CDI Neuro: Normal speech, normal affect Vitals reviewed Assessment: Acute kidney injury with underlying CKD 3 Vancomycin toxicity Acute Toxic Metabolic Encephalopathy likely secondary to vancomycin toxicity/COVID-19 Oral thrush Rule out cholecystitis Osteomyelitis of the right second toe middle and distal phalanx PAD Chronic systolic congestive heart failure with AICD/pacemaker in place Diabetes mellitus type 2insulin-dependent Hypertension Hyperlipidemia Chronic thrombocytopenia Dementia COVID Plan: Acute kidney injury with underlying CKD 3 Vancomycin toxicity Acute Toxic Metabolic Encephalopathy likely secondary to vancomycin toxicity/COVID-19 Oral thrush Family reports some difficulty in obtaining outpatient labs with home health Unclear values of previous chemistries/Vanc trough as outpatient Renal ultrasound without obstructive findings Dr. Shanks consulted- placed TDC 05/23 Cefepime stopped 05/26, has been getting HD Refusing all PO meds/food/water, as per family she will immediately pull an NGT/dobhoff out TPN started 05/27-continue, drank some small amounts of water and PO meds 05/31 evening Continue to push for oral nutrition/meds so that TPN can be discontinued Start IV antifungal 05/27 to be given daily neprhology considering trial of monitoring renal function without dialysis to assess for recovery Renal function stable currently Rule out cholecystitis Abdominal ultrasound performed shows equivocal upper limit of normal gallbladder wall thickness and trace paul cholecystic fluid which may be related to mild ongoing acute cholecystitis or fluid overload can have similar appearance. Mildly echogenic gallbladder sludge. Plan to obtain HIDA scan although patient was unable to cooperate with exam Does not appear to have significant right upper quadrant/abdominal tenderness Monitor LFTs, monitor for fevers Abdominal exam not concerning for acute cholecystitis currently Osteomyelitis of the right second toe middle and distal phalanx PAD Patient has PICC line in place, was supposed to receive antibioticsvancomycin through 06/13 for osteomyelitis Infectious disease recommends linezolid and cefepime (monitor platelets with linezolid) Cefepime DC'd 05/26 concern for encephalopathy related to cefepime Linezolid discontinued 05/30 given thrombocytopenia Started on Rocephin/doxycycline by infectious disease 05/30 Platelet count improving Continue aspirin, Plavix COVID positive Supportive care Chest Xray reports "Right IJ approach dialysis catheter with tip overlying the proximal SVC. No pneumothorax. Multifocal airspace disease that may reflect edema and/or pneumonia" On room air Not a good candidate for antivirals given TERRY/comorbidities Chronic systolic congestive heart failure with AICD/pacemaker in place Holding diuretics given acute kidney injury Continue amiodarone-takes for V. tach prevention Diabetes mellitus type 2insulin-dependent ACHS Accu-Chek, sliding scale insulin Hypertension Hyperlipidemia Continue home medications Chronic thrombocytopenia Anemia of chronic disease Monitor daily Continue aspirin, Plavix Hold subcu heparin if platelets less than 100 one unit PRB (05/24) Dementia Continue home medications DVT PPX: Heparin subcu Code status: Full Discharge Plan: Home
--- NOTE | 2023-06-02 12:36 | P.PN ---
Subjective Date of Service: 06/02/23 Chief Complaint: TERRY Subjective: No new changes Physical Examination - Vital Signs Temperature: 99.0 F Blood Pressure: 159/84 Pulse: 92 Respirations: 20 Pulse Ox (%): 93 - Physical Exam General: Other (appears as her stated age) HEENT: Atraumatic, Normocephalic Neck: Supple Respiratory: Other (symmetric chest expansion) Cardiovascular: No rubs, No murmurs Gastrointestinal: Soft and benign, No guarding Musculoskeletal: No clubbing Integumentary: No warmth Neurological: Normal speech, Normal tone Urinary: Other (no bladder distention) External genitalia: Deferred Rectal: Deferred Assessment And Plan - Plan 1. Acute kidney injury secondary to acute tubular necrosis and superimposed vancomycin toxicity. The patient was started on dialysis. Urine output is improving. Renal function showed some improvement. There is a slow recovery present. The patient was last dialyzed on 05/29. No acute indication for dialy sis today. SCr decreased to 1.9 today. 2. CKD3. Monitor renal panel. 3. Hypertension. BP meds adjusted. 4. Hypophosphatemia. Improved, monitor. 5. Osteomyelitis of R 2nd toe. Abx per ID service. 6. Covid infection. Per other services. 7. DM2. Mngt per primary team. 8. Hypokalemia. KCl repletion prn.
[2023-06-03 04:56] LABS: Hematocrit 27.7 % (36.0-45.0); Hemoglobin 9.2 g/dL (12.0-15.0); MCH 29.4 pg (27.0-35.0); MCHC 33.1 g/dL (32.0-36.0); MCV 88.8 fL (80-100); MPV 10.1 fL (7.6-11.3); Platelets 119 thou/uL (152-406); RBC Red Blood Cell Count 3.12 M/uL (3.86-4.86); Red Cell Distribution Width 15.4 % (12.1-15.2)
[2023-06-03 05:03] LABS: Anion Gap 8.6 mEq/L (5.0-15.0); Phosphorus 2.5 mg/dL (2.5-4.9); Potassium 3.6 mEq/L (3.5-5.1)
[2023-06-03] MEDS: INSULIN GLARGINE 100 UNIT/ML SQ SCH (09:27)
--- NOTE | 2023-06-03 09:46 | P.PN ---
Infectious Disease Progress Note Chief Complaint: TERRY Subjective: Improving. In no apparent distress. Denies any new or worsening complaints. No acute events reported over the weekend. Physical Examination Temp Pulse Resp BP Pulse Ox 97.7 F 86 24 H 150/60 H 100 06/03/23 08:00 06/03/23 09:26 06/03/23 08:00 06/03/23 09:06/03/23 08:00 General: In no apparent distress. Oriented x2. HEENT: Atraumatic, Normocephalic. sclera nonicteric. Respiratory: Diminished. on room air. +cough. Cardiovascular: Regular rate. Pacemaker left chest. Gastrointestinal: Normal bowel sounds, Soft and benign, Non-distended Integumentary: Right heel diabetic foot ulcer dressing clean dry and intact. Laboratory Data - Reviewed Microbiology Data - Reviewed Imagings Data: - Reviewed Medication List: Reviewed Assessment and Plan Problem List Osteomyelitis of the Right 2nd toe Vancomycin Toxicity Acute Kidney Injury Chronic Kidney Disease stage III Peripheral Arterial Disease Chronic Systolic Congestive Heart Failure Hx Pacemaker Diabetes Mellitus type II Hypertenstion Hyperlipidemia Dementia Osteomyelitis of the Right 2nd toe - Patient was recently hospitalized and started on IV antibiotics for osteomyelitis right 2nd toe. She was discharged to home with home health and PICC line to continue IV Vancomycin x 6 weeks [05/02 to 06/13] - XR right foot 05/01: " Prominent diffuse osteopenia. Moderate calcaneal spurs. Bony destruction is seen involving the middle and distal phalanx of the second toe with soft tissue swelling compatible with osteomyelitis." - 05/16 vanco trough = 45. It is reported that there was difficulty obtaining labs and PICC line infusion complications as outpatient. - vanco levels trending down. - Started on Linezolid and Cefepime 05/20. - Cefepime discontinued 05/26 due to altered mental status. Mentation has improved since discontinuation of cefepime. - Platelets now <100. Discontinued Linezolid 05/30. --> started on Rocephin and Doxycycline 05/30 Candiduria Oral Thrush - Urine culture 05/27: 2+ yeast -Started on fluconazole 05/27 COVID-positive - 05/23: postive covid. -Supportive care - Afebrile TERRY on CKD 3 Vancomycin toxicity -Temporary dialysis cath placement 05/23 - Creatinine improving Recommendations - Osteomyelitis: Recommend continuing antibiotic therapy x 6 weeks. [05/02 to 06/13]. - Cefepime and Linezolid switched to Rocephin and Doxycycline 05/30. - Candiduria: continue fluconazole x 14 days (05/27-06/09) - TERRY on CKD: temporary dialysis cath placed 05/23 - right heel wound care per wound care team. Pressure offloading measures. Case discussed with Enedelia Levi
--- NOTE | 2023-06-03 12:27 | P.PN ---
Date of Service: 06/03/23 Subjective: Alert, improving ate some yogurt yesterday oriented x2-3 ROS: 10 point ROS as noted above, otherwise negative Physical exam GEN: Awake and alert, oriented x2-3 HEENT: Normal conjunctiva, sclera anicteric CV: RRR, normal S1-S2 Pulm: symmetrical chest wall movement, on RA ABD: Soft benign on palpation, bowel sounds present, NT/ND MSK: No joint tenderness Integumentary: Wound noted to right heel without significant erythema, swelling, dressing CDI Neuro: Normal speech, normal affect Vitals reviewed Assessment: Acute kidney injury with underlying CKD 3 Vancomycin toxicity Acute Toxic Metabolic Encephalopathy likely secondary to vancomycin toxicity/COVID-19 Oral thrush Rule out cholecystitis Osteomyelitis of the right second toe middle and distal phalanx PAD Chronic systolic congestive heart failure with AICD/pacemaker in place Diabetes mellitus type 2insulin-dependent Hypertension Hyperlipidemia Chronic thrombocytopenia Dementia COVID Plan: Acute kidney injury with underlying CKD 3 Vancomycin toxicity Acute Toxic Metabolic Encephalopathy likely secondary to vancomycin toxicity/COVID-19 Oral thrush Family reports some difficulty in obtaining outpatient labs with home health Unclear values of previous chemistries/Vanc trough as outpatient Renal ultrasound without obstructive findings Dr. Shanks consulted- placed TDC 05/23 Cefepime stopped 05/26, has been getting HD Refusing all PO meds/food/water, as per family she will immediately pull an NGT/dobhoff out TPN started 05/27-continue, drank some small amounts of water and PO meds 05/31 evening Continue to push for oral nutrition/meds so that TPN can be discontinued Start IV antifungal 05/27 to be given daily Renal function stable without dialysis the last few days Nephrology following Can be discharged once tolerating more PO and TPN can be discontinued, working with PT, and outpatient antibiotics are agreed upon with ID Rule out cholecystitis Abdominal ultrasound performed shows equivocal upper limit of normal gallbladder wall thickness and trace paul cholecystic fluid which may be related to mild ongoing acute cholecystitis or fluid overload can have similar appearance. Mildly echogenic gallbladder sludge. Plan to obtain HIDA scan although patient was unable to cooperate with exam Does not appear to have significant right upper quadrant/abdominal tenderness Monitor LFTs, monitor for fevers Abdominal exam not concerning for acute cholecystitis currently Doubt cholecystits Osteomyelitis of the right second toe middle and distal phalanx PAD Patient has PICC line in place, was supposed to receive antibioticsvancomycin through 06/13 for osteomyelitis Infectious disease recommends linezolid and cefepime (monitor platelets with linezolid) Cefepime DC'd 05/26 concern for encephalopathy related to cefepime Linezolid discontinued 05/30 given thrombocytopenia Started on Rocephin/doxycycline by infectious disease 05/30 Platelet count improving Continue aspirin, Plavix COVID positive Supportive care Chest Xray reports "Right IJ approach dialysis catheter with tip overlying the proximal SVC. No pneumothorax. Multifocal airspace disease that may reflect edema and/or pneumonia" On room air Not a good candidate for antivirals given TERRY/comorbidities Chronic systolic congestive heart failure with AICD/pacemaker in place Holding diuretics given acute kidney injury Continue amiodarone-takes for V. tach prevention Diabetes mellitus type 2insulin-dependent ACHS Accu-Chek, sliding scale insulin Hypertension Hyperlipidemia Continue home medications Chronic thrombocytopenia Anemia of chronic disease Monitor daily Continue aspirin, Plavix Hold subcu heparin if platelets less than 100 one unit PRB (05/24) Dementia Continue home medications DVT PPX: Heparin subcu Code status: Full Discharge Plan: Home 2-3 days Can be discharged once tolerating more PO and TPN can be discontinued, working with PT, and outpatient antibiotics are agreed upon with ID
--- NOTE | 2023-06-04 04:08 | PN ---
Date of Progress Note: 06/03/2023 Chief Complaint: Acute kidney injury, chronic kidney disease stage 3. Subjective: The patient is feeling better today. Denies chest pain, palpitation. She is more alert . She is responsive to questions. Appetite is somewhat improving. The patient was started on TPN w hen she had severe encephalopathy and she was refusing p.o. intake. The patient is on hemodialysis f or acute kidney injury . She stated she was found to have fluid overload and she was treat ed for COVID pneumonia. Review of Systems: Denies complaints. Physical Examination: Lungs: Clear to auscultation bilaterally. Heart: S1, S2. Abdomen: Soft. Extremities: Minimal peripheral edema. Impression And Plan: 1.Acute kidney injury secondary to acute tubular necrosis with superimposed vancomycin toxicity. Th e patient was started on dialysis. Urine output is improving. Renal function showed some improvemen t. Azotemia is plateauing. Currently, hemodialysis is on hold. Plan is to schedule hemodialysis ca theter removal in 24 to 48 hours. 2.Chronic kidney disease stage 3. Avoid nephrotoxic medication. Continue to monitor electrolytes, urine output. 3.Hypertension. Continue current medication. 4.Hypophosphatemia, improved. The patient is on total parenteral nutrition. The patient received I V potassium phosphate. 5.Osteomyelitis. Antibiotics per Infectious Disease team. 6.COVID infection, per Primary team. 7.Diabetes mellitus, on insulin. EB/MODL Voice ID: [id number] Report ID: [id number]
[2023-06-04 05:57] LABS: Hematocrit 27.9 % (36.0-45.0); Hemoglobin 9.1 g/dL (12.0-15.0); MCH 29.1 pg (27.0-35.0); MCHC 32.7 g/dL (32.0-36.0); MCV 88.9 fL (80-100); Platelets 133 thou/uL (152-406); RBC Red Blood Cell Count 3.14 M/uL (3.86-4.86); Red Cell Distribution Width 15.2 % (12.1-15.2)
[2023-06-04 06:08] LABS: Albumin 2.1 g/dL (3.4-5.0); Anion Gap 8.6 mEq/L (5.0-15.0); Phosphorus 2.7 mg/dL (2.5-4.9); Potassium 3.6 mEq/L (3.5-5.1)
--- NOTE | 2023-06-04 09:32 | P.PN ---
Infectious Disease Progress Note Chief Complaint: TERRY Subjective: Patient seen in room. Daughter at bedside. In no apparent distress. Patient denies any new or worsening complaints at this time. Physical Examination Temp Pulse Resp BP Pulse Ox 99.6 F 78 18 153/69 H 95 06/04/23 08:00 06/04/23 08:00 06/04/23 08:00 06/04/23 08:00 06/04/23 08:00 General: In no apparent distress. Oriented x2. HEENT: Atraumatic, Normocephalic. sclera nonicteric. Respiratory: Diminished. on room air. +cough. Cardiovascular: Regular rate. Pacemaker left chest. Gastrointestinal: Normal bowel sounds, Soft and benign, Non-distended Integumentary: Right heel diabetic foot ulcer dressing clean dry and intact. Laboratory Data - Reviewed Microbiology Data - Reviewed Imagings Data: - Reviewed Medication List: - Reviewed Assessment and Plan Problem List Osteomyelitis of the Right 2nd toe Vancomycin Toxicity Acute Kidney Injury Chronic Kidney Disease stage III Peripheral Arterial Disease Chronic Systolic Congestive Heart Failure Hx Pacemaker Diabetes Mellitus type II Hypertenstion Hyperlipidemia Dementia Osteomyelitis of the Right 2nd toe - Patient was recently hospitalized and started on IV antibiotics for oste omyelitis right 2nd toe. She was discharged to home with home health and PICC line to continue IV Vancomycin x 6 weeks [05/02 to 06/13] - XR right foot 05/01: " Prominent diffuse osteopenia. Moderate calcaneal spurs. Bony destruction is seen involving the middle and distal phalanx of the second toe with soft tissue swelling compatible with osteomyelitis." - 05/16 vanco trough = 45. It is reported that there was difficulty obtaining labs and PICC line infusion complications as outpatient. - vanco levels trending down. - Started on Linezolid and Cefepime 05/20. - Cefepime discontinued 05/26 due to altered mental status. Mentation has improved since discontinuation of cefepime. - Platelets now <100. Discontinued Linezolid 05/30. --> started on Rocephin and Doxycycline 05/30 Candiduria Oral Thrush - Urine culture 05/27: 2+ yeast -Started on fluconazole 05/27 COVID-positive - 05/23: postive covid. -Supportive care - Afebrile TERRY on CKD 3 Vancomycin toxicity -Temporary dialysis cath placement 05/23 - Creatinine improving Recommendations - Osteomyelitis: Continue antibiotic therapy x 6 weeks. [05/02 to 06/13]. - Now on Rocephin and Doxycycline 05/30. - Candiduria, oral thrush: continue fluconazole x 14 days (05/27-06/09) - Monitor CBC, BMP - right heel wound care per wound care team. - Pressure offloading measures. - nutritional supplementation - strict blood glucose control Case discussed with Enedelia Levi
[2023-06-04] MEDS: THIAMINE 200 MG/2 ML INJ IVP SCH (11:23)
[2023-06-04] MEDS: AMIODARONE HCL 200 MG TAB PO SCH (11:23)
[2023-06-04] MEDS: CALCITROL 0.25 MCG CAP PO ONE (14:16)
--- NOTE | 2023-06-04 15:03 | P.PN ---
Date of Service: 06/04/23 Subjective: More Alert and oriented today Able to answer questions appropriately ROS: 10 point ROS as noted above, otherwise negative Physical exam GEN: AAO x 2-3 NAD, conversing well HEENT: Normal conjunctiva, sclera anicteric CV: Regular rate and rhythm, normal S1-S2 present Pulm: symmetrical chest wall movement, on RA ABD: Soft benign on palpation, bowel sounds present, NT/ND MSK: No joint tenderness Integumentary: Wound noted to right heel without significant erythema, swelling, dressing CDI Neuro: Normal speech, normal affect Vitals reviewed Assessment: Acute kidney injury with underlying CKD 3 Vancomycin toxicity Acute Toxic Metabolic Encephalopathy likely secondary to vancomycin toxicity/COVID-19 Oral thrush Rule out cholecystitis Osteomyelitis of the right second toe middle and distal phalanx PAD Chronic systolic congestive heart failure with AICD/pacemaker in place Diabetes mellitus type 2insulin-dependent Hypertension Hyperlipidemia Chronic thrombocytopenia Dementia COVID Plan: Acute kidney injury with underlying CKD 3 Vancomycin toxicity Acute Toxic Metabolic Encephalopathy likely secondary to vancomycin toxicity/COVID-19 Oral thrush Family reports some difficulty in obtaining outpatient labs with home health Unclear values of previous chemistries/Vanc trough as outpatient Renal ultrasound without obstructive findings Dr. Shanks consulted- placed TDC 05/23 Cefepime stopped 05/26, has been getting HD Refusing all PO meds/food/water, as per family she will immediately pull an NGT/dobhoff out TPN started 05/27-continue, drank some small amounts of water and PO meds 05/31 evening Continue to encourage for oral nutrition/meds so that TPN can be discontinued Start IV antifungal 05/27 to be given daily Renal function stable without dialysis the last few days Nephrology following Can be discharged once tolerating more PO then TPN can be discontinued, working with PT, and outpatient antibiotics are agreed upon with ID Rule out cholecystitis Abdominal ultrasound performed shows equivocal upper limit of normal gallbladder wall thickness and trace paul cholecystic fluid which may be related to mild ongoing acute cholecystitis or fluid overload can have similar appearance. Mildly echogenic gallbladder sludge. patient was unable to cooperate with HIDA scan Does not appear to have significant right upper quadrant/abdominal tenderness Monitor LFTs, monitor for fevers Osteomyelitis of the right second toe middle and distal phalanx PAD Patient has PICC line in place, was supposed to receive antibioticsvancomycin through 06/13 for osteomyelitis initially Infectious disease recommended linezolid and cefepime (monitor platelets with linezolid) Cefepime DC'd 05/26 concern for encephalopathy related to cefepime Linezolid discontinued 05/30 given thrombocytopenia Started on Rocephin/doxycycline by infectious disease 05/30 Platelet count improving Continue aspirin, Plavix COVID positive Supportive care Chest Xray reports "Right IJ approach dialysis catheter with tip overlying the proximal SVC. No pneumothorax. Multifocal airspace disease that may reflect edema and/or pneumonia" On room air Not a good candidate for antivirals given TERRY/comorbidities Chronic systolic congestive heart failure with AICD/pacemaker in place Holding diuretics given acute kidney injury Continue amiodarone-takes for V. tach prevention Diabetes mellitus type 2insulin-dependent ACHS Accu-Chek, sliding scale insulin Hypertension Hyperlipidemia Continue home medications Chronic thrombocytopenia Anemia of chronic disease Monitor daily Continue aspirin, Plavix Hold subcu heparin if platelets less than 100 one unit PRB (05/24) Dementia Continue home medications DVT PPX: Heparin subcu Code status: Full Discharge Plan: Home 2-3 days
--- NOTE | 2023-06-04 15:57 | P.PN ---
Subjective Date of Service: 06/04/23 Chief Complaint: TERRY today no overnight events Cr stable plan to remove TDC cont TPN, dvance diet as tolerated General: awake and alert Neck: Supple. No elevated JVD. Heart: Regular rate and rhythm. Normal S1, S2. Chest: Clear to auscultation bilaterally. No rales or wheezes. , bruises around catheter site Abdomen: Soft and nontender. Extremities: no edema Assessment And Plan: #. Acute kidney injury secondary to vanc toxicity Non oliguric last HD on 05/29 cr stabel ~2.0 renal diet renal dose meds Cont gentle hydration plan to remove TDC # Hypertension, controlled, Continue current treatment. #. Iron deficiency anemia. S/P transfuse if Hb <7.0 #COVID 19 cont supportive care # Osteomyelitis. Continue current treatment. Keep holding vanc. #failure to thrive cont TPN Physical Examination - Vital Signs Temperature: 99.3 F Blood Pressure: 135/52 Pulse: 73 Respirations: 17 Pulse Ox (%): 93
[2023-06-04] MEDS: GABAPENTIN 100 MG CAP PO ONE (17:13)
[2023-06-05 04:47] LABS: Hematocrit 24.7 % (36.0-45.0); Hemoglobin 8.3 g/dL (12.0-15.0); MCH 30.2 pg (27.0-35.0); MCHC 33.6 g/dL (32.0-36.0); MCV 89.7 fL (80-100); MPV 10.2 fL (7.6-11.3); Platelets 134 thou/uL (152-406); RBC Red Blood Cell Count 2.76 M/uL (3.86-4.86); Red Cell Distribution Width 15.7 % (12.1-15.2)
[2023-06-05 04:54] LABS: Albumin 1.9 g/dL (3.4-5.0); Anion Gap 8.7 mEq/L (5.0-15.0); Phosphorus 3.4 mg/dL (2.5-4.9); Potassium 3.7 mEq/L (3.5-5.1)
[2023-06-05] MEDS: GABAPENTIN 100 MG CAP PO SCH (09:10)
--- NOTE | 2023-06-05 09:37 | P.PN ---
Infectious Disease Progress Note Subjective: Improving. In no apparent distress. Denies any new or worsening complaints. + mild headache + decreased appetite, slightly improving Plan of care discussed with patient and daughter at bedside. Physical Examination Temp Pulse Resp BP Pulse Ox 98.6 F 62 17 118/58 L 96 06/05/23 08:00 06/05/23 09:11 06/05/23 08:00 06/05/23 09:11 06/05/23 08:00 General: In no apparent distress. Oriented x2. HEENT: Atraumatic, Normocephalic. Sclera nonicteric. Respiratory: Diminished at bases. Nonlabored respirations on room air. Cardiovascular: Regular rate. Pacemaker left chest. Gastrointestinal: Normal bowel sounds, Soft and benign, Non-distended. Non- tender. Integumentary: Right heel diabetic foot ulcer- dressing is intact. Laboratory Data - Reviewed Microbiology Data - Reviewed Imagings Data: - Reviewed Medication List: - Reviewed Assessment and Plan Problem List Osteomyelitis of the Right 2nd toe Vancomycin Toxicity Acute Kidney Injury Chronic Kidney Disease stage III Peripheral Arterial Disease Chronic Systolic Congestive Heart Failure Hx Pacemaker Diabetes Mellitus type II Hypertenstion Hyperlipidemia Dementia Osteomyelitis of the Right 2nd toe - Patient was recently hospitalized and started on IV antibiotics for osteomyelitis right 2nd toe. She was discharged to home with home health and PICC line to continue IV Vancomycin x 6 weeks [05/02 to 06/13] - XR right foot 05/01: " Prominent diffuse osteopenia. Moderate calcaneal spurs. Bony destruction is seen involving the middle and distal phalanx of the second toe with soft tissue swelling compatible with osteomyelitis." - 05/16 vanco trough = 45. It is reported that there was difficulty obtaining labs and PICC line infusion complications as outpatient. - vanco levels trending down. - Started on Linezolid and Cefepime 05/20. - Cefepime discontinued 05/26 due to altered mental status. Mentation has improved since discontinuation of cefepime. - Platelets now <100. Discontinued Linezolid 05/30. --> started on Rocephin and Doxycycline 05/30 Candiduria Oral Thrush - Urine culture 05/27: 2+ yeast -Started on fluconazole 05/27 COVID-positive - 05/23: postive covid. -Supportive care - Afebrile TERRY on CKD 3 Vancomycin toxicity -Temporary dialysis cath placement 05/23 - Creatinine improving Recommendations - Osteomyelitis: Continue antibiotic therapy x 6 weeks. [05/02 to 06/13]. - Now on Rocephin and Doxycycline 05/30. - Candiduria, oral thrush: continue fluconazole x 14 days (05/27-06/09) - Monitor CBC, BMP - right heel wound care per wound care team. - Pressure offloading measures. - nutritional supplementation - strict blood glucose control - physical therapy Case discussed with Enedelia Levi
--- NOTE | 2023-06-05 09:41 | P.PN ---
Patient seen and examined. Plan of care discussed with Ms. Kimball. Patient is doing much better, she is eating and drinking. More awake and interactive. Plan: Continue current antibiotics Serum creatinine significantly decreased and now stable around. Nephrology is following. Increase oral intake as possible and wean off TPN SW/CM arranging for outpatient IV antibiotics with home health. Continue PT. <sukhwinder anand - Last Filed: 06/05/23 17:42> Date of Service: 06/05/23 Subjective: Awake and working with therapy Conversing well More alert and oriented today ROS: 10 point ROS as noted above, otherwise negative Physical exam GEN: No acute distress, alert and oriented x 2, conversing well HEENT: Normal conjunctiva, sclera anicteric CV: normal S1-S2 present, Regular rate and rhythm, no murmur noted Pulm: symmetrical chest wall movement, on RA ABD: Soft abdomen on palpation, bnormoactive bowel sounds, NT/ND MSK: No joint tenderness Integumentary: Wound noted to right heel without significant erythema, swelling, dressing CDI Neuro: Normal speech, normal affect Vitals reviewed Assessment: Acute kidney injury with underlying CKD 3 Vancomycin toxicity Acute Toxic Metabolic Encephalopathy likely secondary to vancomycin toxicity/COVID-19 Oral thrush Rule out cholecystitis Osteomyelitis of the right second toe middle and distal phalanx PAD Chronic systolic congestive heart failure with AICD/pacemaker in place Diabetes mellitus type 2insulin-dependent Hypertension Hyperlipidemia Chronic thrombocytopenia Dementia COVID Plan: Acute kidney injury with underlying CKD 3 Vancomycin toxicity Acute Toxic Metabolic Encephalopathy likely secondary to vancomycin toxicity/COVID-19 Oral thrush -Family reports some difficulty in obtaining outpatient labs with home health -Unclear values of previous chemistries/Vanc trough as outpatient -Renal ultrasound without obstructive findings -Dr. Shanks consulted- placed TDC 05/23 -Cefepime stopped 05/26 -Refusing all PO meds/food/water, as per family she will immediately pull an NGT/dobhoff out -TPN started 05/27-will continue and wean as able -Continue to encourage for oral nutrition/meds so that TPN can be discontinued -continue IV antifungal daily, started 05/27 -Renal function stable without dialysis -Nephrology following -Can be discharged once tolerating more PO then TPN can be discontinued, working with PT, and outpatient antibiotics are agreed upon with ID Rule out cholecystitis -Abdominal ultrasound performed shows equivocal upper limit of normal gallbladder wall thickness and trace paul cholecystic fluid which may be related to mild -ongoing acute cholecystitis or fluid overload can have similar appearance. Mildly echogenic gallbladder sludge. -patient was unable to cooperate with HIDA scan -Does not appear to have significant right upper quadrant/abdominal tenderness -monitor for fevers Osteomyelitis of the right second toe middle and distal phalanx PAD -Patient has PICC line in place, was supposed to receive antibioticsvancomycin through 06/13 for osteomyelitis -initially Infectious disease recommended linezolid and cefepime (monitor platelets with linezolid) -Cefepime DC'd 05/26 concern for encephalopathy related to cefepime -Linezolid discontinued 05/30 given thrombocytopenia -Started on Rocephin/doxycycline by infectious disease 05/30 -Platelet count stable -Continue aspirin, Plavix -Dr. Caro will follow the labs and IV abx infusion upon discharge. COVID positive -Supportive care -Chest Xray reports "Right IJ approach dialysis catheter with tip overlying the proximal SVC. No pneumothorax. Multifocal airspace disease that may reflect edema and/or pneumonia" -On room air -Not a good candidate for antivirals given TERRY/comorbidities Chronic systolic congestive heart failure with AICD/pacemaker in place -Holding diuretics given acute kidney injury -Continue amiodarone-takes for V. tach prevention Diabetes mellitus type 2insulin-dependent -ACHS Accu-Chek, sliding scale insulin Hypertension Hyperlipidemia -Continue home medications Chronic thrombocytopenia Anemia of chronic disease -Monitor daily -Continue aspirin, Plavix -Hold subcu heparin if platelets less than 100 -one unit PRB (05/24) Dementia -Continue home medications DVT PPX: Heparin subcu Code status: Full Discharge Plan: Home 2-3 days <Jannette Kimball - Last Filed: 06/05/23 18:50>
--- NOTE | 2023-06-05 11:37 | PN ---
Date of Progress Note: 06/05/2023 Subjective: The patient was admitted to the hospital with acute kidney injury secondary to toxic ATN secondary to vancomycin toxicity. Patient was required dialysis because of the uremic symptoms. Glenn roberts started showing some recovery. Patient weaned off dialysis. Last dialysis was on the . Diana harris still has very good urine output. No uremic symptoms. Objective: Vital Signs: Blood pressure 118/58, pulse of 62, afebrile. Chest: Clear to auscultation. Heart: S1, S2. Regular. Abdomen: Soft, nontender. Extremities: No edema. Neurologic: Alert. No focality. Laboratory Data: Hemoglobin 8.3, sodium 140, potassium 3.7, bicarb 31, BUN 55, creatinine 2.1, GFR 2 4, calcium 8.5, phosphorus 3.4, albumin 1.9, corrected calcium is 10.1. Current Medications: The patient on include doxycycline, ceftriaxone, Plavix, carvedilol 25 b.i.d., hydralazine 25 t.i.d., atorvastatin, gabapentin 200 b.i.d., Namenda, Lasix 40 t.i.d., pantoprazole. Assessment And Plan: 1.Acute kidney injury secondary to toxic acute tubular necrosis secondary to vancomycin toxicity, re covered, nonoliguric. No hyperkalemia. No acidosis. No need for dialysis. Waiting for TDC removal . We will continue current antibiotic. Follow up with ID. 2.Hypertension, currently blood pressure on the lower side. I am going to go ahead and decrease hyd ralazine to b.i.d. We will continue to monitor the patient. 3.Failure to thrive. Continue PPN. 4.Congestive heart failure with exacerbation. Patient currently stable. I am going to go ahead and follow up repeated chest x-ray to evaluate the dose of the diuresis and we will monitor. 5.Anemia of chronic kidney disease/iron-deficiency anemia, status post IV iron. I am going to dose the patient with Retacrit, and we will follow up the patient. 6.Osteomyelitis. Continue current antibiotic. Follow up with ID. NICO/JAROCHO Voice ID: [id number] Report ID: [id number]
[2023-06-05] MEDS: EPOETIN ALFA-EPBX 10,000 UNIT/ML VIAL SQ SCH (12:22)
--- NOTE | 2023-06-05 12:49 | RAD REPORT ---
EXAM DESCRIPTION: RAD - Chest Single View - 06/05/2023 12:38 pm CLINICAL HISTORY: COPD Chest pain. COMPARISON: Chest Single View dated 05/29/2023; Chest Single View dated 05/27/2023; Chest Single View d ated 05/24/2023; Chest Single View dated 05/24/2023 FINDINGS: Portable technique limits examination quality. There is extensive bilateral pulmonary opacities noted, unchanged since comparative study. The heart is mildly enlarged in size. Multi lead pacer/ defibrillator device present. Right-sided PICC line has tip in the right atrium. 2-3 cm of retraction could be considered. Right-sided venous catheter its t ip in the SVC.
[2023-06-05] MEDS: HYDRALAZINE HCL 25 MG TABLET PO SCH (20:04)
[2023-06-06 05:17] LABS: Hematocrit 25.8 % (36.0-45.0); Hemoglobin 8.3 g/dL (12.0-15.0); MCH 29.1 pg (27.0-35.0); MCHC 32.2 g/dL (32.0-36.0); MCV 90.4 fL (80-100); MPV 10.4 fL (7.6-11.3); Platelets 147 thou/uL (152-406); RBC Red Blood Cell Count 2.86 M/uL (3.86-4.86); Red Cell Distribution Width 16.1 % (12.1-15.2)
[2023-06-06 05:35] LABS: Albumin/Globulin Ratio 0.5 (1.1-1.8); Anion Gap 9.7 mEq/L (5.0-15.0); Bilirubin Total 0.4 mg/dL (0.2-1.0); Globulin 3.9 g/dL (2.3-3.5); Potassium 3.7 mEq/L (3.5-5.1); Protein, Total 5.9 g/dL (6.4-8.2)
--- NOTE | 2023-06-06 08:59 | P.PN ---
Infectious Disease Progress Note Subjective: Improving. In no apparent distress. Denies any new or worsening complaints. Poor appetite No major changes. Physical Examination Temp Pulse Resp BP Pulse Ox 98.1 F 64 16 107/54 L 95 06/06/23 07:53 06/06/23 07:53 06/06/23 07:53 06/06/23 07:53 06/06/23 07:53 General: In no apparent distress. Oriented x2-3 HEENT: Atraumatic, Normocephalic. Sclera nonicteric. Respiratory: Diminished at bases. Nonlabored respirations on room air. Cardiovascular: Regular rate. Pacemaker left chest. Gastrointestinal: Normal bowel sounds, Soft and benign, Non-distended. Non- tender. Integumentary: Right heel diabetic foot ulcer- dressing is intact. Laboratory Data - Reviewed Microbiology Data - Reviewed Imagings Data: - Reviewed Medication List: - Reviewed Assessment and Plan Problem List Osteomyelitis of the Right 2nd toe Vancomycin Toxicity Acute Kidney Injury Chronic Kidney Disease stage III Peripheral Arterial Disease Chronic Systolic Congestive Heart Failure Hx Pacemaker Diabetes Mellitus type II Hypertenstion Hyperlipidemia Dementia Osteomyelitis of the Right 2nd toe - Patient was recently hospitalized and started on IV antibiotics for osteomyelitis right 2nd toe. She was discharged to home with home health and PICC line to continue IV Vancomycin x 6 weeks [05/02 to 06/13] - XR right foot 05/01: " Prominent diffuse osteopenia. Moderate calcaneal spurs. Bony destruction is seen involving the middle and distal phalanx of the second toe with soft tissue swelling compatible with osteomyelitis." - 05/16 vanco trough = 45. It is reported that there was difficulty obtaining labs and PICC line infusion complications as outpatient. - Started on Linezolid and Cefepime 05/20. - Cefepime discontinued 05/26 due to altered mental status. Mentation has improved since discontinuation of cefepime. - Platelets <100. Discontinued Linezolid 05/30. --> started on Rocephin and Doxycycline 05/30 Candiduria Oral Thrush - Urine culture 05/27: 2+ yeast -Started on fluconazole 05/27 COVID-positive - 05/23: postive covid. -Supportive care - Afebrile Recommendations Pending home health arrangements to complete remainder of antibiotic course. - Osteomyelitis: Continue antibiotic therapy x 6 weeks [05/02 to 06/13]. - Rocephin and Doxycycline. - Candiduria, oral thrush: continue fluconazole x 14 days (05/27-06/09) - Monitor CBC, BMP - right heel wound care per wound care team. Pressure offloading measures. - nutritional supplementation - strict blood glucose control - physical therapy Case discussed with Enedelia Levi
--- NOTE | 2023-06-06 13:05 | PN ---
Date of Progress Note: 06/06/2023 Subjective: The patient is doing well. Still poor intake. The patient is on PPN. Kidney function continued to improve. Physical Examination: Vital Signs: Blood pressure 107/54, pulse of 65, afebrile. Chest: Clear to auscultation. Heart: S1, S2. Regular. Abdomen: Soft, nontender. Extremities: No edema. Neuro: Alert. No focality. Laboratory Data: Hemoglobin 8.4. Sodium 139, potassium 3.7, bicarb 29, BUN 72, creatinine 2.5, calc ium 8.5. Phos 4. Albumin 2. Corrected calcium 10.1. Current Medications: The patient on is Plavix, ceftriaxone, fluconazole, doxycycline, atorvastatin h ydralazine 25 b.i.d., Namenda, TPN, Zofran, insulin. Assessment And Plan: 1.Acute kidney injury secondary to toxic acute tubular necrosis secondary to vancomycin toxicity, no noliguric, required dialysis, recovered. Last dialysis, May 29. Plan for removal of TDC tomorrow. 2.Hypertension, controlled. Currently on the lower side. I am going to go ahead and decrease Lasix to t.i.d. and yesterday we decreased hydralazine. We will continue to monitor. 3.Anemia of chronic kidney disease. Continue JOE. 4.Congestive heart failure with exacerbation, normal volume currently. Decrease Lasix. SABINA Voice ID: [id number] Report ID: [id number]
--- NOTE | 2023-06-06 20:02 | P.PN ---
Date of Service: 06/06/23 Subjective: Continues to make improvements As her family members very well Answers questions appropriately ROS: 10 point ROS as noted above, otherwise negative Physical exam GEN: NAD, AAO x 2 HEENT: Normal conjunctiva, sclera anicteric CV: normal S1-S2 , RRR, no murmur noted Pulm: symmetrical chest wall movement, on RA, bilateral clear breath sounds ABD: Soft abdomen on palpation, bowel sounds present, NT/ND MSK: No joint tenderness Integumentary: Wound noted to right heel without significant erythema, swelling, dressing CDI Neuro: Normal speech, normal affect Vitals reviewed Assessment: Acute kidney injury with underlying CKD 3 Vancomycin toxicity Acute Toxic Metabolic Encephalopathy likely secondary to vancomycin toxicity/COVID-19 Oral thrush Rule out cholecystitis Osteomyelitis of the right second toe middle and distal phalanx PAD Chronic systolic congestive heart failure with AICD/pacemaker in place Diabetes mellitus type 2insulin-dependent Hypertension Hyperlipidemia Chronic thrombocytopenia Dementia COVID Plan: Acute kidney injury with underlying CKD 3 Vancomycin toxicity Acute Toxic Metabolic Encephalopathy likely secondary to vancomycin toxicity/COVID-19 Oral thrush -Family reports some difficulty in obtaining outpatient labs with home health -Unclear values of previous chemistries/Vanc trough as outpatient -Renal ultrasound without obstructive findings -Dr. Shanks consulted- placed TDC 05/23 -Cefepime stopped 05/26 -Refusing all PO meds/food/water, as per family she will immediately pull an NGT/dobhoff out -TPN started 05/27-will continue and wean as able -Continue to encourage for oral nutrition/meds so that TPN can be discontinued -continue IV antifungal daily, started 05/27 -Renal function stable without dialysis -Nephrology following -weaned TPN today -Working with therapy Rule out cholecystitis -Abdominal ultrasound performed shows equivocal upper limit of normal gallbladder wall thickness and trace paul cholecystic fluid which may be related to mild -ongoing acute cholecystitis or fluid overload can have similar appearance. Mildly echogenic gallbladder sludge. -patient was unable to cooperate with HIDA scan -Does not appear to have significant right upper quadrant/abdominal tenderness -monitor for fevers Osteomyelitis of the right second toe middle and distal phalanx PAD -Patient has PICC line in place, was supposed to receive antibioticsvancomycin through 06/13 for osteomyelitis -initially Infectious disease recommended linezolid and cefepime (monitor platelets with linezolid) -Cefepime DC'd 05/26 concern for encephalopathy related to cefepime -Linezolid discontinued 05/30 given thrombocytopenia -Started on Rocephin/doxycycline by infectious disease 05/30 -Platelet count stable -Continue aspirin, Plavix -Dr. Caro will follow the labs and IV abx infusion upon discharge. COVID positive -Supportive care -Chest Xray reports "Right IJ approach dialysis catheter with tip overlying the proximal SVC. No pneumothorax. Multifocal airspace disease that may reflect edema and/or pneumonia" -On room air -Not a good candidate for antivirals given TERRY/comorbidities Chronic systolic congestive heart failure with AICD/pacemaker in place -Holding diuretics given acute kidney injury -Continue amiodarone-takes for V. tach prevention Diabetes mellitus type 2insulin-dependent -ACHS Accu-Chek, sliding scale insulin Hypertension Hyperlipidemia -Continue home medications Chronic thrombocytopenia Anemia of chronic disease -Monitor daily -Continue aspirin, Plavix -Hold subcu heparin if platelets less than 100 -one unit PRB (05/24) Dementia -Continue home medications DVT PPX: Heparin subcu Code status: Full Discharge Plan: 24 hours
[2023-06-06] MEDS: FUROSEMIDE 40 MG/4 ML VIAL IV SCH (20:08)
[2023-06-07] MEDS: D5 0.9 NS 1,000 ML IV SCH (02:11)
[2023-06-07] MEDS: NA CHLORIDE 0.9% 500 ML ONE (13:10)
[2023-06-07] MEDS ORDERED: propofoL 200 MG/20 ML VIAL IV ONE (14:58)
[2023-06-07] MEDS ORDERED: LIDOCAINE 1% MPF 5 ML VIAL ONE (14:58)
[2023-06-07] MEDS: LIDOCAINE HCL/EPINEPHRINE 20 ML MDV ONE (15:16)
--- NOTE | 2023-06-07 15:22 | P.OP ---
Preoperative diagnosis: Return of Kidney Function Postoperative diagnosis: Return of Kidney Function Primary procedure: Removal of RIGHT IJ tunneled Hemodialysis catheter Anesthesia: MAC + Local Estimated blood loss: <1cc Specimen: Cath for ID only Findings: cath Complications: None Transferred to: Recovery Room Condition: Good
--- NOTE | 2023-06-07 15:55 | OP ---
Date of Procedure: 06/07/2023 Surgeon: Doc Shanks MD, Preoperative Diagnosis: Return of kidney function/no need for dialysis catheter. Postoperative Diagnosis: Return of kidney function/no need for dialysis catheter. Procedure Performed: Removal of right internal jugular hemodialysis catheter. Anesthesia: MAC plus local with 0.25% Marcaine. Estimated Blood Loss: Less than 1 cc. Specimen: Cath for ID only. Findings: Catheter was clean without evidence of infection. Complications: None. Disposition: Patient transferred to recovery room in good condition. Procedure In Detail: After informed consent was obtained, patient was brought to the operating room, prepped and draped in the usual sterile fashion after adequate anesthesia was achieved, patient was placed in steep Trendelenburg position. I anesthetized the area of the right catheter insertion site s. I then removed all the sutures and then grasped and pulled the catheter out. There was no need f or dissection of the cuff as it had not been needed to create at this point. Catheter was sent off f or ID only. The area was copiously irrigated. At this point, the patient remained in Trendelenburg position. I then brought the patient head up after holding pressure for approximately 3 to 5 minutes . There was no bleeding from the site. I irrigated the exit site at this point, closed it with a si ngle interrupted 3-0 nylon suture and sterile dressing placed over top. Patient tolerated the procedure without incident or complication, transferred to PACU in good condition. All counts were c orrect at the end of the case. ELLSI/JAROCHO Voice ID: [id number] Report ID: [id number]
--- NOTE | 2023-06-07 17:27 | P.PN ---
Date of Service: 06/07/23 Subjective: TDC removed today by Dr. Shanks Conversing well Reoriented with family in the room Hemodynamically stable Plan for discharge at 9 AM 06/07/2023 ROS: 10 point ROS as noted above, otherwise negative Physical exam GEN: Alert and oriented x 2, no acute distress, conversing well HEENT: Normal conjunctiva, sclera anicteric CV: normal S1-S2 , regular rate and rhythm, no murmur noted Pulm: symmetrical chest wall movement, on RA, bilateral clear breath sounds ABD: Soft abdomen on palpation, bowel sounds present, NT/ND MSK: No joint tenderness, 2+ peripheral pulses, 1+ left lower extremity pulse Integumentary: Wound noted to right heel without significant erythema, swelling, dressing CDI Neuro: Normal speech, normal affect Vitals reviewed Assessment: Acute kidney injury with underlying CKD 3 Vancomycin toxicity Acute Toxic Metabolic Encephalopathy likely secondary to vancomycin toxicity/COVID-19 Oral thrush Rule out cholecystitis Osteomyelitis of the right second toe middle and distal phalanx PAD Chronic systolic congestive heart failure with AICD/pacemaker in place Diabetes mellitus type 2insulin-dependent Hypertension Hyperlipidemia Chronic thrombocytopenia Dementia COVID Plan: Acute kidney injury with underlying CKD 3 Vancomycin toxicity Acute Toxic Metabolic Encephalopathy likely secondary to vancomycin toxicity/COVID-19 Oral thrush -Family reports some difficulty in obtaining outpatient labs with home health -Unclear values of previous chemistries/Vanc trough as outpatient -Renal ultrasound without obstructive findings -Dr. Shanks consulted- placed TDC 05/23 -Cefepime stopped 05/26 -Refusing all PO meds/food/water, as per family she will immediately pull an NGT/dobhoff out -TPN started 05/27-will continue and wean as able -Continue to encourage for oral nutrition/meds so that TPN can be discontinued -continue IV antifungal daily, started 05/27 -Renal function stable without dialysis -Nephrology following -weaned TPN today -Working with therapy Rule out cholecystitis -Abdominal ultrasound performed shows equivocal upper limit of normal gallbladder wall thickness and trace paul cholecystic fluid which may be related to mild -ongoing acute cholecystitis or fluid overload can have similar appearance. Mildly echogenic gallbladder sludge. -patient was unable to cooperate with HIDA scan -Does not appear to have significant right upper quadrant/abdominal tenderness -monitor for fevers Osteomyelitis of the right second toe middle and distal phalanx PAD -Patient has PICC line in place, was supposed to receive antibioticsvancomycin through 06/13 for osteomyelitis -initially Infectious disease recommended linezolid and cefepime (monitor platelets with linezolid) -Cefepime DC'd 05/26 concern for encephalopathy related to cefepime -Linezolid discontinued 05/30 given thrombocytopenia -Started on Rocephin/doxycycline by infectious disease 05/30 -Platelet count stable -Continue aspirin, Plavix -Dr. Caro will follow the labs and IV abx infusion upon discharge. COVID positive-recovered -Supportive care -Chest Xray reports "Right IJ approach dialysis catheter with tip overlying the proximal SVC. No pneumothorax. Multifocal airspace disease that may reflect edema and/or pneumonia" -On room air -Not a good candidate for antivirals given TERRY/comorbidities Chronic systolic congestive heart failure with AICD/pacemaker in place -Holding diuretics given acute kidney injury -Continue amiodarone-takes for V. tach prevention Diabetes mellitus type 2insulin-dependent -ACHS Accu-Chek, sliding scale insulin Hypertension Hyperlipidemia -Continue home medications Chronic thrombocytopenia Anemia of chronic disease-stable -Monitor daily -Continue aspirin, Plavix -Hold subcu heparin if platelets less than 100 -one unit PRB (05/24) Dementia -Continue home medications DVT PPX: Heparin subcu Code status: Full Discharge Plan: Discharge in the a.m.
--- NOTE | 2023-06-08 02:52 | PN ---
Date of Progress Note: 06/07/2023 Subjective: The patient is admitted to the hospital because of osteomyelitis. She has chronic ulcer . She is undergoing wound care. She pneumonia, congestive heart failure. She had been CO VID positive and had COVID infection. The patient was started on hemodialysis for acute kidney injur y. Renal function has gradually improved and the patient had dialysis catheter removed today. Review of Systems: Patient is feeling better. She is more alert. Physical Examination: Lungs: Clear to auscultation bilaterally. Heart: S1 and S2. Abdomen: Soft. Extremities: No edema. Impression And Plan: 1.Acute kidney injury secondary to toxic acute tubular necrosis in setting of vancomycin toxicity an d cardiorenal syndrome and acute tubular necrosis. Once dialysis was on May 29 . 2.Hypertension, controlled. Continue hydralazine, dose will be decreased to prevent hypotensive epi sode. The patient will continue Lasix for volume control. 3.She has congestive heart failure with diastolic dysfunction, stable and controlled. La six was decreased. 4.Anemia of chronic kidney disease. Continue JOE. EB/MODL Voice ID: [id number] Report ID: [id number]
[2023-06-08 09:13] VITALS: O2SAT 96
[2023-06-08 11:22] LABS: Anion Gap 8.1 mEq/L (5.0-15.0); Potassium 4.1 mEq/L (3.5-5.1)
[2023-06-08] MEDS: NA CHLORIDE 0.9% 500 ML IV SCH ×2 (13:36→14:21)
--- NOTE | 2023-06-08 13:55 | P.DS ---
Admission Date: 05/17/23 Discharge Date: 06/10/23 Disposition: DC HOME/HOME HEALTH CARE Discharge Condition: GOOD Reason for Admission: TERRY Brief History of Present Illness: Diagnosis Acute kidney injury with underlying CKD 3 Vancomycin toxicity Acute Toxic Metabolic Encephalopathy likely secondary to vancomycin toxicity/COVID-19 Oral thrush Rule out cholecystitis Osteomyelitis of the right second toe middle and distal phalanx PAD Chronic systolic congestive heart failure with AICD/pacemaker in place Diabetes mellitus type 2insulin-dependent Hypertension Hyperlipidemia Chronic thrombocytopenia Dementia COVID HPI 05/17/23 Sangita Hendrix is a 77-year-old female with history of CKD 3, PAD, chronic systolic congestive heart failure, insulin-dependent diabetes mellitus type 2, hypertension, hyperlipidemia, chronic thrombocytopenia, dementia presents emergency department with chief complaint of abnormal labs. She was seen here at our hospital for osteomyelitis admitted on 05/03/2023 and discharged on 05/07/2023. She was started on home antibiotics with vancomycin 1 g every 36 hours with orders for twice weekly CBC, BMP and Vanco troughs. Family reports some issues with obtaining lab with home health, were instructed to come to the emergency department as her bank trough was significantly elevated. Patient was evaluated in the emergency department today and her labs were significant for hemoglobin of 8.5 hematocrit 26 platelet 146 creatinine 5.66 GFR 7 glucose 145 alk phos 120 vancomycin trough 45. At discharge creatinine was 1.83 Family does endorse some poor appetite, she had taken 1 Advil for pain since discharge, was constipated and took some lactulose did have 2 large volume loose stools yesterday. Also does take Entresto, Lasix at home for CHF but does not appear overloaded at this time. Patient to be admitted for acute kidney injury, vancomycin toxicity. Renal ultrasound ordered and pending. Hospital Course: Sangita Hendrix is a pleasant 77 year old female with a past medical history significant for CKD 3, PAD, chronic systolic congestive heart failure, insulin- dependent diabetes mellitus type 2, hypertension, hyperlipidemia, chronic thrombocytopenia, dementia who was admitted to the [facility] on 05/17/23 for vancomycin toxicity, TERRY. Sangita Hendrix presented to the ED with acute kidney injury and vancomycin toxicity. This has been a complicated and lengthy hospital stay including placement of a TDC, three rounds of dialysis managed by Dr. Stubbs, Infectious disease with Dr. Caro managed the IV antibiotics for continued therapy of the osteomylitis of the right foot. Her kidney's are recovering but the process will depend on adequate oral intake including drinking water multiple times daily. The kidney's are still sensitive seeing decreased function quickly. Lab work has been requested to start Saturday06/10/23 to help monitor closely. She has been hydrated with one liter of normal saline after being NPO for the surgical removal of the tunneled dialysis catheter yesterday 06/07/23. Plan for IV antibiotic therapy to continue with [facility] including Fluconazole, doxycycline, and Rocephin. Lab work and antibiotic management will be directed by Dr. aCro. On 06/08/23, Sangita was seen on morning rounds and deemed medically stable for discharge. Sangita was discharged with instructions to schedule follow-up appointments with Dr. Stubbs and PCP. Sangita was provided prescriptions for Medihoney, amino acids, and Calcitrol. The patient and family members were given the opportunity to ask questions and reported no further questions. Furthermore, all questions were answered to the best of my ability. A copy of this discharge summary will be sent to the above providers to facilitate continuity of care. Physical exam GEN: Alert and oriented x 2, NAD, conversing well HEENT: Normal conjunctiva, sclera anicteric CV: normal S1-S2 , RRR, no murmur noted Pulm: symmetrical chest wall movement, on RA, bilateral clear breath sounds ABD: Soft abdomen on palpation, normal active bowel sounds, NT/ND MSK: No joint tenderness, 2+ peripheral pulses, 1+ left lower extremity pulse Integumentary: Wound noted to right heel without significant erythema, swelling, dressing CDI Neuro: Normal speech, normal affect Vital Signs/Physical Exam: Temp Pulse Resp BP Pulse Ox 98.2 F 63 16 105/51 L 99 06/08/23 12:00 06/08/23 12:00 06/08/23 12:00 06/08/23 12:00 06/08/23 12:00 Laboratory Data at Discharge: WBC 7.30 thou/uL (4.3-10.9) 06/06/23 04:58 Hgb 8.3 g/dL (12.0-15.0) L 06/06/23 04:58 Hct 25.8 % (36.0-45.0) L 06/06/23 04:58 Plt Count 147 thou/uL (152-406) L 06/06/23 04:58 Sodium 145 mEq/L (136-145) 06/08/23 11:00 Potassium 4.1 mEq/L (3.5-5.1) 06/08/23 11:00 BUN 67 mg/dL (7-18) H 06/08/23 11:00 Creatinine 3.03 mg/dL (0.55-1.02) H 06/08/23 11:00 Glucose 171 mg/dL (74-106) H 06/08/23 11:00 Uric Acid 9.3 mg/dL (2.6-6.0) H 05/19/23 07:40 Phosphorus 4.0 mg/dL (2.5-4.9) 06/06/23 04:58 Magnesium 1.5 mg/dL (1.6-2.4) L 06/01/23 06:10 Total Bilirubin 0.4 mg/dL (0.2-1.0) 06/06/23 04:58 AST 27 U/L (15-37) 06/06/23 04:58 ALT 26 U/L (13-56) 06/06/23 04:58 Alkaline Phosphatase 90 U/L (45-117) 06/06/23 04:58 Home Medications: Amiodarone HCl [Cordarone*] 1 tab PO DAILY 05/30/17 Furosemide 1 tab PO DAILY 05/30/17 Insulin Glargine,Hum.rec.anlog [Lantus] 20 unit SQ DAILY 05/30/17 Sacubitril/Valsartan [Entresto 24 mg-26 mg Tablet] 1 tab PO BID 05/30/17 carvediloL [Carvedilol] 1 tab PO BID 05/30/17 Clopidogrel Bisulfate [Plavix*] 75 mg PO DAILY 08/25/21 Memantine HCl [Namenda] 10 mg PO BID 08/25/21 Gabapentin [Neurontin*] 400 mg PO TIDP PRN 05/03/23 Pantoprazole [Protonix Tab*] 40 mg PO DAILY 05/03/23 Rosuvastatin Calcium [Crestor] 20 mg PO BEDTIME 05/03/23 Tramadol HCl [Ultram] 50 mg PO Q4HP PRN 05/03/23 Amino Acids/Protein Hydrolys [Prosource No Carb Liquid Pkt] 30 ml PO BID 30 Days #60 packet 06/08/23 Calcitrol [Rocaltrol*] 0.25 mcg PO Q48H 30 Days #15 cap 06/08/23 Ensure High Protein 237 ml PO BID can 06/08/23 Gabapentin [Neurontin*] 200 mg PO BID cap 06/08/23 Hydralazine [Apresoline*] 10 mg PO DAILY 30 Days #30 tab 06/08/23 Medihoney [Medihoney Woundcare Gel*] 1 appl TOP DAILY 30 Days #1 tube 06/08/23 New Medications: Hydralazine [Apresoline*] 10 mg PO DAILY 30 Days #30 tab Medihoney [Medihoney Woundcare Gel*] 1 appl TOP DAILY 30 Days #1 tube Amino Acids/Protein Hydrolys [Prosource No Carb Liquid Pkt] 30 ml PO BID 30 Days #60 packet Calcitrol [Rocaltrol*] 0.25 mcg PO Q48H 30 Days #15 cap Physician Discharge Instructions: PROBLEM: Acute Kidney Injury, Edema GOAL: Clear understanding of disease process INSTRUCTIONS: Diet: Renal Activity: Fall precautions Sangita Hendrix presented to the ED with acute kidney injury and vancomycin toxicity. Her kidney's are recovering but the process will depend on adequate oral intake including drinking water multiple times daily. The kidney's are still sensitive seeing decreased function quickly. Lab work has been requested to start Saturday06/10/23 to help monitor closely. She has been hydrated with one liter of normal saline after being NPO for the surgical removal of the tunneled dialysis catheter yesterday 06/07/23. First day for lab work will be Saturday06/10/23 to monitor her kidney function closely. 1. Please call and schedule a follow-up appointment with your PCP in 3-5 days - Please follow-up with your PCP for medication refills/adjustments 2. Please call and schedule a follow-up appointment with Evelyne in one to two weeks 3. Dr Caro will be managing her lab work and antibiotics (ph [phone], fax [phone]) 4. Continue Renal diet 5. Fall precaution, work with physical therapy 6. check blood pressure morning and night for safe use of blood pressure medications 7. check blood glucose at meals and bedtime for safe use of insulin 8. Return to the ED if symptoms worsen New Medications Medihoney- apply to right foot wound amino acids 30 ml PO BID for 30 days-prescribed by nephrology calcitrol 0.25 mcg PO Q48H x 30 days-prescribed by nephrology IV antibiotic medications as prescribed will be provided by [facility] Fluconazole 200 mg Daily end date 06/12/23 Doxycycline 100 mg Q12H end date 06/14/23 Rocephin 1000mg Daily end date 06/10/23 Medication change Decrease Hydralazine 10 mg daily for 30 days- PCP to reveluate Diet: Renal Activity: Fall precautions Followup: YO GABRIEL [Primary Care Provider] - Patrick Stubbs MD [ACTIVE - CAN ADMIT] -
[2023-06-08 16:21] VITALS: BP 103/62; TEMP 97.3
--- NOTE | 2023-06-08 23:14 | PN ---
Date of Progress Note: 06/08/2023 Chief Complaint: Acute on chronic kidney injury. Subjective: The patient was admitted to the hospital because of osteomyelitis. She was treated for COVID pneumonia. She developed congestive heart failure, acute on chronic kidney injury, and she had dialysis done for metabolic clearance and to control fluid overload. The patient also was treated w ith Lasix to control congestive heart failure. Renal function has improved and dialysis catheter was removed. The patient has underlying chronic kidney disease stage 4 and developed acute on chronic k idney injury due to acute tubular necrosis in setting of vancomycin toxicity and cardiorenal syndrome complicated by acute tubular necrosis. Review of Systems: Patient denies new complaints. Physical Examination: Lungs: Clear to auscultation bilaterally. Heart: S1, S2. Abdomen: Soft. Extremities: Ankle edema. Impression And Plan: 1.Acute on chronic kidney injury. Avoid nephrotoxic medication. P.o. intake has improved. The pat ient will continue hydration by mouth. Dialysis was terminated. Patient has chronic kidney disease stage 4. Avoid nephrotoxic medication. 2.Hypertension, controlled. Continue current medication. Continue Lasix for cardiorenal syndrome a s needed. 3.Congestive heart failure with diastolic dysfunction, volemia stable. Lasix dose was decreased. 4.Anemia of chronic kidney disease. Monitor hemoglobin level. Plan blood transfusion if hemoglobin is below 7. EB/MODL Voice ID: [id number] Report ID: [id number]
== END 2023-06-08 17:54 | disposition home health service (06) | DRG 673 ==
LOC: ER 15:46 → ERHOLD 17:32 → 2ND 05-18 17:26 → UNDODISIN 05-20 15:00
PROVIDERS: ADMIT Hospitalist; ATTEND Internal Medicine
PROC: 02HV33Z Insertion of Infusion Device into Superior Vena Cava, Percutaneous Approach (ICD-10-PCS; 2023-05-24)
PROC: 0JH63XZ Insertion of Tunneled Vascular Access Device into Chest Subcutaneous Tissue and Fascia, Percutaneous Approach (ICD-10-PCS; principal; 2023-05-24 14:15)
PROC: 30233N1 Transfusion of Nonautologous Red Blood Cells into Peripheral Vein, Percutaneous Approach (ICD-10-PCS; 2023-05-25)
PROC: 5A1D70Z Performance of Urinary Filtration, Intermittent, Less than 6 Hours Per Day (ICD-10-PCS; 2023-05-27)
PROC: 3E0436Z Introduction of Nutritional Substance into Central Vein, Percutaneous Approach (ICD-10-PCS; 2023-05-28)
PROC: 02PY33Z Removal of Infusion Device from Great Vessel, Percutaneous Approach (ICD-10-PCS; 2023-06-07)
DX: N17.0 Acute kidney failure with tubular necrosis (principal); E43 Unspecified severe protein-calorie malnutrition; U07.1 COVID-19; G92.8 Other toxic encephalopathy; J12.82 Pneumonia due to coronavirus disease 2019; I50.23 Acute on chronic systolic (congestive) heart failure; I13.0 Hypertensive heart and chronic kidney disease with heart failure and stage 1 through stage 4 chronic kidney disease, or unspecified chronic kidney disease; M86.8X8 Other osteomyelitis, other site; E87.1 Hypo-osmolality and hyponatremia; B37.0 Candidal stomatitis; L97.419 Non-pressure chronic ulcer of right heel and midfoot with unspecified severity; N18.32 Chronic kidney disease, stage 3b; E11.22 Type 2 diabetes mellitus with diabetic chronic kidney disease; E11.69 Type 2 diabetes mellitus with other specified complication; E11.621 Type 2 diabetes mellitus with foot ulcer; E11.51 Type 2 diabetes mellitus with diabetic peripheral angiopathy without gangrene; D63.1 Anemia in chronic kidney disease; D50.9 Iron deficiency anemia, unspecified; G30.9 Alzheimer's disease, unspecified; F02.C0 Dementia in other diseases classified elsewhere, severe, without behavioral disturbance, psychotic disturbance, mood disturbance, and anxiety; E78.5 Hyperlipidemia, unspecified; D69.6 Thrombocytopenia, unspecified; E87.6 Hypokalemia; N25.81 Secondary hyperparathyroidism of renal origin; K21.9 Gastro-esophageal reflux disease without esophagitis; E83.39 Other disorders of phosphorus metabolism; L89.610 Pressure ulcer of right heel, unstageable; I25.10 Atherosclerotic heart disease of native coronary artery without angina pectoris; T36.8X5A Adverse effect of other systemic antibiotics, initial encounter; Z88.0 Allergy status to penicillin; Z99.2 Dependence on renal dialysis; Z88.5 Allergy status to narcotic agent; Z88.8 Allergy status to other drugs, medicaments and biological substances; Z79.4 Long term (current) use of insulin; Z68.37 Body mass index [BMI] 37.0-37.9, adult; Z79.02 Long term (current) use of antithrombotics/antiplatelets; Z90.710 Acquired absence of both cervix and uterus; Z79.899 Other long term (current) drug therapy; Z95.810 Presence of automatic (implantable) cardiac defibrillator; Z91.158 Patient's noncompliance with renal dialysis for other reason
CPT/HCPCS: 0241U; 36415; 36430; 70450; 71045; 74176; 76000; 76705; 76770; 80048; 80053; 80069; 80202; 81001; 82140; 82550; 82570; 82652; 82728; 82947; 83540; 83735; 83970; 84100; 84156; 84165; 84443; 84466; 84550; 85014; 85018; 85025; 85027; 85044; 86705; 86850; 86900; 86901; 86920; 87086; 87088; 87340; 88300; 90935; 92610; 93005; 93926; 93971; 94640; 96360; 96361; 97110; 97116; 97161; 97530; 99285; A4216; C1752; C9113; J0360; J0692; J0696; J1170; J1450; J1644; J1815; J1940; J2001; J2020; J2250; J2405; J2704; J2916; J2997; J3010; J3411; J3475; J7030; J7040; J7042; J7050; J7613; P9016; Q4081; Q5106

== ENCOUNTER 2023-06-15 20:10 | Inpatient (IN) | payer OTHER ==
--- NOTE | 2023-06-15 21:01 | RAD REPORT ---
EXAM DESCRIPTION: CT - Abdomen Pelvis Wo Contrast - 06/15/2023 8:53 pm CLINICAL HISTORY: Abdominal pain. ABD PAIN COMPARISON: Abdomen Pelvis Wo Contrast dated 05/26/2023 TECHNIQUE: CT imaging of the abdomen and pelvis was performed without contrast. Solid organ, bowel a nd vascular assessment is limited due to lack of IV and oral contrast. All CT scans are performed using dose optimization technique as appropriate and may include automated exposure control or mA/KV adjustment according to patient size. FINDINGS: Mild linear opacities in both lung bases suggest subsegmental atelectasis. The liver, spleen, adrenal glands and kidneys are within normal limits for a limited non-contrast exa mination.Mild peripancreatic inflammation noted compatible with acute pancreatitis. No pseudocyst. No bowel obstruction, free air, free fluid or abscess. Nonvisualized appendix. The osseous structures are within normal limits.Left total hip arthroplasty. IMPRESSION: Acute pancreatitis suspected. A limited non-contrast examination was performed as detailed.
--- NOTE | 2023-06-15 21:24 | RAD REPORT ---
EXAM DESCRIPTION: RAD - Chest Single View - 06/15/2023 9:16 pm CLINICAL HISTORY: ABDOMINAL DISTENTION Chest pain. COMPARISON: Chest Single View dated 06/05/2023; Chest Single View dated 05/29/2023; Chest Single View dated 05/27/2023; Chest Single View dated 05/24/2023 FINDINGS: Portable technique limits examination quality. Moderate bilateral pulmonary opacities which may represent pulmonary edema. The heart is mildly enlar ged. Single lead pacer device.Right PICC line has tip in the SVC. IMPRESSION: Mild CHF is possible.
[2023-06-15] MEDS ORDERED: ONDANSETRON 4 MG/2 ML VIAL ONE (21:53)
[2023-06-15] MEDS ORDERED: PANTOPRAZOLE 40 MG INJ ONE (21:53)
[2023-06-15] MEDS ORDERED: MAGNES/ALUMIN/SIMET 30ML UCUP ONE (21:53)
[2023-06-15] MEDS ORDERED: FENTANYL CITR 100 MCG/2 ML ONE ×2 (21:53→23:32)
[2023-06-15] MEDS ORDERED: NA CHLORIDE 0.9% 500 ML ONE (21:54)
[2023-06-15] MEDS ORDERED: NA CHLORIDE 0.9% 1,000 ML ONE (21:54)
[2023-06-15] MEDS ORDERED: LIDOCAINE VISCOUS 2% 10ML ORAL SOLN ONE (21:54)
[2023-06-15 22:23] LABS: Absolute Eosinophils 0.1 K/uL (0-0.5); Absolute Lymphocytes (CBC) 0.8 K/uL (0.7-4.9); Absolute Monocytes 0.7 K/uL (0.1-1.3); Absolute Neutrophil 5.5 K/uL (1.8-8.0); Basophils % 0.6 % (0-1.3); Eosinophils % 0.8 % (0-4.4); Hematocrit 32.7 % (36.0-45.0); Hemoglobin 10.3 g/dL (12.0-15.0); Lymphocytes % 11.7 % (15.3-44.8); MCH 28.6 pg (27.0-35.0); MCHC 31.6 g/dL (32.0-36.0); MCV 90.7 fL (80-100); MPV 10.9 fL (7.6-11.3); Monocytes % 10.1 % (3.3-12.3); Neutrophils % 76.8 % (41.7-73.7); Nucleated Red Blood Cells % 0.4 % (0-0); Platelets 152 thou/uL (152-406)
--- NOTE | 2023-06-15 22:23 | RAD REPORT ---
EXAM DESCRIPTION: US - Abdomen Exam Limited - 06/15/2023 10:09 pm CLINICAL HISTORY: ABD PAIN COMPARISON: Abdomen Exam Limited dated 05/26/2023 FINDINGS: The gallbladder demonstrates no gallstones. No pericholecystic fluid or gallbladder wall t hickening. The common bile duct is normal measuring 3 mm. The liver demonstrates no findings of intrahepatic biliary dilatation. IMPRESSION: Unremarkable examination.
[2023-06-15 22:36] LABS: PT Prothrombin Time 16.1 SECONDS (9.5-12.5); Protime INR 1.48
[2023-06-15 23:41] LABS: Albumin 2.9 g/dL (3.4-5.0); Albumin/Globulin Ratio 0.6 (1.1-1.8); Anion Gap 9.5 mEq/L (5.0-15.0); Bilirubin Direct 0.2 mg/dL (0-0.2); Bilirubin Indirect, Calculated 0.2 mg/dL (0.2-0.8); Bilirubin Total 0.4 mg/dL (0.2-1.0); Globulin 4.5 g/dL (2.3-3.5); Magnesium 1.4 mg/dL (1.6-2.4); Potassium 3.5 mEq/L (3.5-5.1); Protein, Total 7.4 g/dL (6.4-8.2); Troponin High Sensitivity 32.2 pg/mL (<58.9)
--- NOTE | 2023-06-15 23:55 | ER ---
Nurse's Notes [facility] Name: Sangita Hendrix Age: 77 yrs Sex: Female : 1945 Arrival Date: 06/15/2023 Time: 20:10 Bed 14 Private MD: Diagnosis: Epigastric abdominal tenderness;Chronic kidney disease, stage 4 (severe);Obesity, unspecified;Vomiting;Acute pancreatitis without necrosis or infection, unspecified;Hypomagnesemia;Chronic combined systolic (congestive) and diastolic (congestive) heart failure Presentation: 06/14 20:24 Chief complaint: Patient states: upper abdominal pain of 10 that radiates to mid pf1 chest,onset 1200 with vomiting x 1 episode today. Family member stated patient is having a "GERD flare up". Family stated completed antibiotics yesterday for right foot 2nd digit osteomyelitis. Patient has a PICC line to right upper arm. 20:24 Coronavirus screen: Client denies travel out of the [place] in the last 14 days. At this pf1 time, the client does not indicate any symptoms associated with coronavirus-19. Ebola Screen: Patient negative for fever greater than or equal to 101.5 degrees Fahrenheit, and additional compatible Ebola Virus Disease symptoms. Initial Sepsis Screen: Does the patient meet any 2 criteria? No. Patient's initial sepsis screen is negative. Does the patient have a suspected source of infection? No. Patient's initial sepsis screen is negative. Risk Assessment: Do you want to hurt yourself or someone else? Patient reports no desire to harm self or others. Onset of symptoms was June 15, 2023 at 12:00. 20:24 Method Of Arrival: Wheelchair pf1 20:24 Acuity: MADISYN 2 pf1 Triage Assessment: 20:24 General: Appears in no apparent distress. uncomfortable, obese, well groomed, well pf1 developed, Behavior is calm, cooperative, appropriate for age, quiet. 20:24 Pain: Complains of pain in chest and abdomen Pain currently is 10 out of 10 on a pain pf1 scale. GI: Reports upper abdominal pain, vomiting. Historical: - Allergies: 20:54 Baclofen; pf1 20:54 Grant; pf1 20:54 PENICILLINS; pf1 - PMHx: 20:54 BRADYCARDIA; CHF; Dementia; Diabetes - IDDM; GERD; hiatal hernia; Pacemaker; pf1 20:55 osteomyelitis of right foot 2nd digit; pf1 - PSHx: 20:54 back sx; hip FX repair; hysterectomy; pf1 - Immunization history:: Adult Immunizations up to date, 4 doses of Covid-19 vaccines Last tetanus immunization: < 5 years ago Flu vaccine is up to date. - Infectious Disease History:: Denies. - Social history:: Smoking status: Patient denies any tobacco usage or history of. Patient/guardian denies using alcohol, street drugs. - Family history:: not pertinent. Screenin:21 [facility] ED Fall Risk Assessment (Adult) History of falling in the last 3 months, tl4 including since admission No falls in past 3 months (0 pts) Confusion or Disorientation No (0 pts) Intoxicated or Sedated No (0 pts) Impaired Gait No (0 pts) Mobility Assist Device Used No (0 pt) Altered Elimination No (0 pt) Score/Fall Risk Level 0 - 2 = Low Risk Oriented to surroundings, Maintained a safe environment, Educated pt \\T\\ family on fall prevention, incl call for assistance when getting out of bed, Assessed \\T\\ reinforced patient's understanding of fall precautions. Abuse screen: Denies threats or abuse. Denies injuries from another. Nutritional screening: No deficits noted. Tuberculosis screening: No symptoms or risk factors identified. Assessment: 22:15 General: Appears distressed, Behavior is cooperative. Pain: Complains of pain in chest tl4 and abdomen. Neuro: Level of Consciousness is awake, alert, obeys commands, Oriented to person, place, time, situation, Weakness Speech is normal. Cardiovascular: Capillary refill < 3 seconds Patient's skin is warm and dry. Respiratory: Airway is patent Respiratory effort is even, unlabored, Respiratory pattern is regular, symmetrical, Breath sounds are clear bilaterally. GI: Bowel sounds present X 4 quads. Abd is soft Abdomen is tender to palpation X 4 quads. Reports lower abdominal pain, upper abdominal pain. : No signs and/or symptoms were reported regarding the genitourinary system. EENT: No signs and/or symptoms were reported regarding the EENT system. Derm: No signs and/or symptoms reported regarding the dermatologic system. Musculoskeletal: No signs and/or symptoms reported regarding the musculoskeletal system. 22:38 General: Appears in no apparent distress. comfortable, obese, well groomed, well pf1 developed, Behavior is calm, cooperative, appropriate for age, quiet. Pain: Complains of pain in epigastric area and abdomen and chest Pain began today. Neuro: Level of Consciousness is awake, alert, obeys commands, Oriented to person, place, time, situation. Cardiovascular: Reports. Cardiovascular: Reports chest pain, nausea, vomiting, Capillary refill < 3 seconds Patient's skin is warm and dry. Respiratory: No deficits noted. Airway is patent Respiratory effort is even, unlabored, Respiratory pattern is regular, symmetrical. GI: Abdomen is round non-distended, Bowel sounds present X 4 quads. Abd is soft Abdomen is tender to palpation in epigastric area, right upper quadrant and left upper quadrant Reports lower abdominal pain, nausea, vomiting. : No deficits noted. No signs and/or symptoms were reported regarding the genitourinary system. EENT: No deficits noted. No signs and/or symptoms were reported regarding the EENT system. Derm: No deficits noted. No signs and/or symptoms reported regarding the dermatologic system. Musculoskeletal: No deficits noted. No signs and/or symptoms reported regarding the musculoskeletal system. 23:30 Reassessment: Patient appears in no apparent distress at this time. Patient and/or pf1 family updated on plan of care and expected duration. Pain level reassessed. Patient is alert, oriented x 3, equal unlabored respirations, skin warm/dry/pink. Patient states symptoms have improved. 06/15 00:30 Reassessment: Patient appears in no apparent distress at this time. Patient and/or pf1 family updated on plan of care and expected duration. Pain level reassessed. Patient is alert, oriented x 3, equal unlabored respirations, skin warm/dry/pink. Patient states symptoms have improved. 01:30 Reassessment: Patient appears in no apparent distress at this time. Patient and/or pf1 family updated on plan of care and expected duration. Pain level reassessed. Patient is alert, oriented x 3, equal unlabored respirations, skin warm/dry/pink. Patient states feeling better. Patient states symptoms have improved. 02:00 General: Appears in no apparent distress. comfortable, Behavior is calm, cooperative, jw7 quiet. Pain: Complains of pain in abdomen and chest Pain began suddenly. Neuro: Level of Consciousness is awake, alert, obeys commands, Oriented to person, place, time, situation. Cardiovascular: Reports chest pain, Capillary refill < 3 seconds Patient's skin is warm and dry. Respiratory: Airway is patent Trachea midline Respiratory effort is even, unlabored, Respiratory pattern is regular, symmetrical, Breath sounds are clear bilaterally. 02:00 GI: Abdomen is round non-distended, Bowel sounds present X 4 quads. Abd is soft Abdomen jw7 is tender to palpation X 4 quads. Reports lower abdominal pain, upper abdominal pain, nausea, vomiting. : No deficits noted. No signs and/or symptoms were reported regarding the genitourinary system. EENT: No deficits noted. No signs and/or symptoms were reported regarding the EENT system. Derm: Skin is intact, is healthy with good turgor, Skin is dry, Skin is normal, Skin temperature is warm. Musculoskeletal: Circulation, motion, and sensation intact. Range of motion: intact in all extremities. 03:05 Reassessment: Patient appears in no apparent distress at this time. No changes from jw7 previously documented assessment. Patient and/or family updated on plan of care and expected duration. Pain level reassessed. Patient is alert, oriented x 3, equal unlabored respirations, skin warm/dry/pink. Vital Signs: 06/14 20:24 BP 141 / 72; Pulse 57; Resp 18; Temp 97.2; Weight 89.36 kg; Height 5 ft. 3 in. ; Pain pf1 10; 21:00 BP 147 / 66; Pulse 56; Resp 20; Pulse Ox 99% on R/A; tl4 21:47 BP 143 / 60; Pulse 56; Resp 20; Pulse Ox 99% on R/A; tl4 22:19 BP 145 / 60; Pulse 54; Resp 20; Pulse Ox 98% ; tl4 23:00 BP 143 / 59; Pulse 57; Resp 20; Pulse Ox 98% on R/A; Pain 10; pf1 06/15 00:00 BP 137 / 58; Pulse 57; Resp 21; Pulse Ox 99% on R/A; pf1 01:00 BP 134 / 55; Pulse 58; Resp 17; Pulse Ox 98% on R/A; pf1 02:00 BP 133 / 54; Pulse 57; Resp 17 S; Pulse Ox 100% on R/A; jw7 03:00 BP 130 / 55; Pulse 58; Resp 18 S; Pulse Ox 100% on R/A; jw7 06/14 20:24 Body Mass Index 34.90 (89.36 kg, 160.02 cm) pf1 06/14 20:24 Pain Scale: Adult pf1 23:00 Pain Scale: Adult pf1 ED Course: 06/14 20:15 Patient arrived in ED. gm2 20:27 Sukumar Correa MD is Attending Physician. ranjan 20:53 Triage completed. pf1 20:55 Abdomen In Process Unspecified. EDMS 20:58 No provider procedures requiring assistance completed. EKG done, by ED staff, reviewed pf1 by Sukumar Correa MD. 21:15 Hunter Prasad, RN is Primary Nurse. tl4 21:18 XRAY Chest (1 view) In Process Unspecified. EDMS 22:11 US Abdomen Limited In Process Unspecified. EDMS 22:15 PT-INR Sent. tl4 22:15 Initial lab(s) drawn, by ED staff, sent to lab. pf1 22:23 Patient has correct armband on for positive identification. Placed in gown. Bed in low tl4 position. Side rails up X2. Adult w/ patient. Provided Education on: ED process. Client placed on continuous cardiac and pulse oximetry monitoring. NIBP monitoring applied. clinical research monitor on. Door closed. Noise minimized. Moved to private room. Warm blanket given. 23:24 Basic Metabolic Panel Sent. jb4 23:52 Favian Wall MD is Hospitalizing Provider. ranjan 06/15 02:00 Arm band placed on. jw7 03:02 Patient admitted, IV remains in place. jw7 Administered Medications: 06/14 20:50 CANCELLED (Duplicate Order): ns 0.9% 1000 ml IV at 1 bolus Per protocol; 1000 mL bolus ranjan 21:21 CANCELLED (Duplicate Order): ns 0.9% 500 ml IV at bolus once ranjan 22:13 Drug: Ondansetron IVP 4 mg IVP once; over 2 minutes Route: IVP; Site: PICC; tl4 22:37 Follow up: Response: No adverse reaction; Marked relief of symptoms pf1 22:13 Drug: NS 0.9% IV 500 ml IV at bolus once Route: IV; Rate: bolus; Site: PICC; Delivery: tl4 Primary tubing; 23:00 Follow up: Response: No adverse reaction; Marked relief of symptoms; IV Status: pf1 Completed infusion; IV Intake: 500ml 22:14 Drug: Pantoprazole IVP 40 mg IVP once Route: IVP; Site: PICC; tl4 22:37 Follow up: Response: No adverse reaction; Marked relief of symptoms pf1 22:14 Drug: GI Cocktail without - (Maalox PO 30 ml, Lidocaine Mucous Membrane 2 % 15 tl4 ml) PO once Route: PO; 22:37 Follow up: Response: No adverse reaction; Marked relief of symptoms; Pain is decreased pf1 22:14 Drug: fentaNYL (PF) IVP 25 mcg IVP once Route: IVP; Site: PICC; tl4 22:37 Follow up: Response: No adverse reaction; Marked relief of symptoms; Pain is decreased; pf1 RASS: Alert and Calm (0) 23:40 Drug: fentaNYL (PF) IVP 25 mcg IVP once Route: IVP; Site: right upper arm; pf1 06/15 00:30 Follow up: Response: No adverse reaction; Marked relief of symptoms; Pain is decreased; pf1 RASS: Alert and Calm (0) 06/14 23:45 Drug: NS 0.9% IV 1000 ml IV at 75 ml/hr continuous Route: IV; Rate: 75 ml/hr; Site: pf1 right upper arm; 06/15 01:53 Follow up: IV Status: Infusion continued upon admission pf1 00:20 Drug: Magnesium Sulfate IVPB 1 grams IVPB once over 1 hrs Route: IVPB; Infused Over: 1 pf1 hrs; Site: right upper arm; 01:20 Follow up: Response: No adverse reaction; Marked relief of symptoms; IV Status: pf1 Completed infusion; IV Intake: 100ml Medication: 03:03 VIS not applicable for this client. jw7 Intake: 06/14 23:00 IV: 500ml; Total: 500ml. pf1 06/15 01:20 IV: 100ml; Total: 600ml. pf1 Outcome: 06/14 23:54 Decision to Hospitalize by Provider. [facility] 06/15 03:02 Admitted to Med/surg accompanied by tech, via stretcher, room 211, jw7 Condition: stable Instructed on the need for admit, Demonstrated understanding of instructions, 03:06 Patient left the ED. jb4 Signatures: Dispatcher [employer] Sukumar Velez MD MD cha Bryson, James, RN RN jb4 Susi Griggs, RN RN jw7 Jessie Moran, RN RN pf1 Mili Mcconnell 2 Hunter Prasad RN RN tl4
--- NOTE | 2023-06-15 23:55 | EDPHYS ---
Physician Documentation [facility] Name: Sangita Hendrix Age: 77 yrs Sex: Female : 1945 Arrival Date: 06/15/2023 Time: 20:10 Bed 14 Private MD: ED Physician Sukumar Correa HPI: 06/14 21:29 This 77 yrs old Black Female presents to ER via Wheelchair with complaints of Abdominal ranjan Pain. 21:29 The patient presents with abdominal pain abdominal distention in the upper abdomen. ranjan Onset: The symptoms/episode began/occurred today. The symptoms do not radiate. Associated signs and symptoms: Pertinent positives: nausea. The symptoms are described as constant, crampy. Modifying factors: The symptoms are alleviated by nothing, the symptoms are aggravated by nothing. Severity of pain: At its worst the pain was moderate in the emergency department the pain is unchanged. The patient has experienced similar episodes in the past, multiple times. Historical: - Allergies: 20:54 Baclofen; pf1 20:54 [place]; pf1 20:54 PENICILLINS; pf1 - PMHx: 20:54 BRADYCARDIA; CHF; Dementia; Diabetes - IDDM; GERD; hiatal hernia; Pacemaker; pf1 20:55 osteomyelitis of right foot 2nd digit; pf1 - PSHx: 20:54 back sx; hip FX repair; hysterectomy; pf1 - Immunization history:: Adult Immunizations up to date, 4 doses of Covid-19 vaccines Last tetanus immunization: < 5 years ago Flu vaccine is up to date. - Infectious Disease History:: Denies. - Social history:: Smoking status: Patient denies any tobacco usage or history of. Patient/guardian denies using alcohol, street drugs. - Family history:: not pertinent. ROS: 21:29 Constitutional: Negative for fever, chills, and weight loss, Eyes: Negative for injury, ranjan pain, redness, and discharge, ENT: Negative for injury, pain, and discharge, Neck: Negative for injury, pain, and swelling, Cardiovascular: Negative for chest pain, palpitations, and edema, Respiratory: Negative for shortness of breath, cough, wheezing, and pleuritic chest pain, Back: Negative for injury and pain, : Negative for injury, bleeding, discharge, and swelling, MS/Extremity: Negative for injury and deformity, Skin: Negative for injury, rash, and discoloration, Neuro: Negative for headache, weakness, numbness, tingling, and seizure, Psych: Negative for depression, anxiety, suicide ideation, homicidal ideation, and hallucinations, Allergy/Immunology: Negative for hives, rash, and allergies, Endocrine: Negative for neck swelling, polydipsia, polyuria, polyphagia, and marked weight changes, Hematologic/Lymphatic: Negative for swollen nodes, abnormal bleeding, and unusual bruising, 21:29 Abdomen/GI: Positive for abdominal pain, nausea, of the epigastric area, right upper quadrant and left upper quadrant, Exam: 21:29 Constitutional: This is a well developed, well nourished patient who is awake, alert, ranjan and in no acute distress. Head/Face: Normocephalic, atraumatic. Eyes: Pupils equal round and reactive to light, extra-ocular motions intact. Lids and lashes normal. Conjunctiva and sclera are non-icteric and not injected. Cornea within normal limits. Periorbital areas with no swelling, redness, or edema. ENT: Nares patent. No nasal discharge, no septal abnormalities noted. Tympanic membranes are normal and external auditory canals are clear. Oropharynx with no redness, swelling, or masses, exudates, or evidence of obstruction, uvula midline. Mucous membranes moist. Neck: Trachea midline, no thyromegaly or masses palpated, and no cervical lymphadenopathy. Supple, full range of motion without nuchal rigidity, or vertebral point tenderness. No Meningismus. Chest/axilla: Normal chest wall appearance and motion. Nontender with no deformity. No lesions are appreciated. Cardiovascular: Regular rate and rhythm with a normal S1 and S2. No gallops, murmurs, or rubs. Normal PMI, no JVD. No pulse deficits. Respiratory: Lungs have equal breath sounds bilaterally, clear to auscultation and percussion. No rales, rhonchi or wheezes noted. No increased work of breathing, no retractions or nasal flaring. Back: No spinal tenderness. No costovertebral tenderness. Full range of motion. Female : Normal external genitalia. Skin: Warm, dry with normal turgor. Normal color with no rashes, no lesions, and no evidence of cellulitis. MS/ Extremity: Pulses equal, no cyanosis. Neurovascular intact. Full, normal range of motion. Neuro: Awake and alert, GCS 15, oriented to person, place, time, and situation. Cranial nerves II-XII grossly intact. Motor strength 5/5 in all extremities. Sensory grossly intact. Cerebellar exam normal. Normal gait. Psych: Awake, alert, with orientation to person, place and time. Behavior, mood, and affect are within normal limits. 21:29 ECG was reviewed by the Attending Physician. 21:29 Abdomen/GI: Inspection: obese Bowel sounds: normal, Palpation: mild abdominal tenderness, moderate abdominal tenderness, in the epigastric area, right upper quadrant and left upper quadrant, Liver: no appreciated palpable abnormalities, Hernia: not appreciated, Vital Signs: 20:24 BP 141 / 72; Pulse 57; Resp 18; Temp 97.2; Weight 89.36 kg; Height 5 ft. 3 in. ; Pain pf1 11/27; 21:00 BP 147 / 66; Pulse 56; Resp 20; Pulse Ox 99% on R/A; tl4 21:47 BP 143 / 60; Pulse 56; Resp 20; Pulse Ox 99% on R/A; tl4 22:19 BP 145 / 60; Pulse 54; Resp 20; Pulse Ox 98% ; tl4 23:00 BP 143 / 59; Pulse 57; Resp 20; Pulse Ox 98% on R/A; Pain /10; pf1 06/15 00:00 BP 137 / 58; Pulse 57; Resp 21; Pulse Ox 99% on R/A; pf1 01:00 BP 134 / 55; Pulse 58; Resp 17; Pulse Ox 98% on R/A; pf1 02:00 BP 133 / 54; Pulse 57; Resp 17 S; Pulse Ox 100% on R/A; jw7 03:00 BP 130 / 55; Pulse 58; Resp 18 S; Pulse Ox 100% on R/A; jw7 06/14 20:24 Body Mass Index 34.90 (89.36 kg, 160.02 cm) pf1 06/14 20:24 Pain Scale: Adult pf1 23:00 Pain Scale: Adult pf1 MDM: 06/14 20:27 Patient medically screened. ranjan 21:31 Differential diagnosis: coronary artery disease, diverticulitis, gastritis, ranjan gastroesophageal reflux disease, Irritable bowel syndrome, Mesenteric ischemia or infarction, non-specific abd pain, pancreatitis, Peptic Ulcer Disease, Perf. Duodenal Ulcer, Peritonitis, urinary tract infection. Data reviewed: vital signs, nurses notes, lab test result(s), EKG, radiologic studies, CT scan, plain films. Consideration of Admission/Observation Patient was admitted/placed on observation. Escalation of care including admission/observation considered. I considered the following discharge prescriptions or medication management in the emergency department Medications were administered in the Emergency Department. See MAR. Independent interpretation of the following test(s) in the Emergency Department EKG: See my EKG interpretation above. Test considered but Not performed: Ultrasound no abd usg. Historians other than the Patient: Family Member: daughter well informed. Care significantly affected by the following chronic conditions: Diabetes, Hypertension, Congestive Heart Failure, Obesity, Chronic Kidney Disease. Counseling: I had a detailed discussion with the patient and/or guardian regarding the historical points, exam findings, and any diagnostic results supporting the discharge/admit diagnosis, lab results, radiology results. 06/14 20:31 Order name: Basic Metabolic Panel; Complete Time: 23:50 06/14 20:31 Order name: CBC with Diff; Complete Time: 23:50 06/14 20:31 Order name: LFT's; Complete Time: 23:50 06/14 20:31 Order name: Magnesium; Complete Time: 23:50 06/14 20:31 Order name: NT PRO-BNP; Complete Time: 23:50 06/14 20:31 Order name: PT-INR; Complete Time: 23:50 06/14 20:31 Order name: Troponin HS; Complete Time: 23:50 06/14 20:31 Order name: Lipase; Complete Time: 23:50 06/14 20:31 Order name: Urinalysis w/ reflexes 06/14 23:09 Order name: Lipid Profile; Complete Time: 23:50 EDMS 06/15 01:55 Order name: CBC with Automated Diff EDMS 06/15 01:55 Order name: CBC with Automated Diff EDMS 06/15 01:55 Order name: Comprehensive Metabolic Panel EDMS 06/15 01:55 Order name: Comprehensive Metabolic Panel EDMS 06/15 01:57 Order name: Magnesium EDMS 06/15 01:57 Order name: Magnesium EDMS 06/15 01:57 Order name: Magnesium EDMS 06/15 01:57 Order name: Magnesium EDMS 04/28 01:57 Order name: Lipase EDUT 06/15 01:57 Order name: Lipase [facility] 06/14 20:31 Order name: XRAY Chest (1 view); Complete Time: 23:50 [facility] 06/14 20:46 Order name: Abdomen ; Complete Time: 21:23 [facility] 06/14 21:36 Order name: US Abdomen Limited; Complete Time: 23:50 [facility] 06/14 20:31 Order name: EKG; Complete Time: 20:31 [facility] 06/14 20:31 Order name: Cardiac monitoring; Complete Time: 21:16 [facility] 06/14 20:31 Order name: EKG - Nurse/Tech; Complete Time: 20:58 [facility] 06/14 20:31 Order name: Labs collected and sent; Complete Time: 23:23 [facility] 06/14 20:31 Order name: O2 Per Protocol; Complete Time: 21:17 [facility] 06/14 20:31 Order name: O2 Sat Monitoring; Complete Time: 21:17 [facility] EC:29 Rate is 57 beats/min. Rhythm is regular. QRS [place] is Normal. [place] interval is normal. QRS ranjan interval is normal. QT interval is normal. No Q waves. T waves are Normal. No ST changes noted. Clinical impression: 1st degree heart block and Sinus bradycardia. Interpreted by me. Reviewed by me. Administered Medications: 20:50 CANCELLED (Duplicate Order): ns 0.9% 1000 ml IV at 1 bolus Per protocol; 1000 mL bolus ranjan 21:21 CANCELLED (Duplicate Order): ns 0.9% 500 ml IV at bolus once ranjan 22:13 Drug: Ondansetron IVP 4 mg IVP once; over 2 minutes Route: IVP; Site: PICC; tl4 22:37 Follow up: Response: No adverse reaction; Marked relief of symptoms pf1 22:13 Drug: NS 0.9% IV 500 ml IV at bolus once Route: IV; Rate: bolus; Site: PICC; Delivery: tl4 Primary tubing; 23:00 Follow up: Response: No adverse reaction; Marked relief of symptoms; IV Status: pf1 Completed infusion; IV Intake: 500ml 22:14 Drug: Pantoprazole IVP 40 mg IVP once Route: IVP; Site: PICC; tl4 22:37 Follow up: Response: No adverse reaction; Marked relief of symptoms pf1 22:14 Drug: GI Cocktail without - (Maalox PO 30 ml, Lidocaine Mucous Membrane 2 % 15 tl4 ml) PO once Route: PO; 22:37 Follow up: Response: No adverse reaction; Marked relief of symptoms; Pain is decreased pf1 22:14 Drug: fentaNYL (PF) IVP 25 mcg IVP once Route: IVP; Site: PICC; tl4 22:37 Follow up: Response: No adverse reaction; Marked relief of symptoms; Pain is decreased; pf1 RASS: Alert and Calm (0) 23:40 Drug: fentaNYL (PF) IVP 25 mcg IVP once Route: IVP; Site: right upper arm; pf1 06/15 00:30 Follow up: Response: No adverse reaction; Marked relief of symptoms; Pain is decreased; pf1 RASS: Alert and Calm (0) 06/14 23:45 Drug: NS 0.9% IV 1000 ml IV at 75 ml/hr continuous Route: IV; Rate: 75 ml/hr; Site: pf1 right upper arm; 06/15 01:53 Follow up: IV Status: Infusion continued upon admission pf1 00:20 Drug: Magnesium Sulfate IVPB 1 grams IVPB once over 1 hrs Route: IVPB; Infused Over: 1 pf1 hrs; Site: right upper arm; 01:20 Follow up: Response: No adverse reaction; Marked relief of symptoms; IV Status: pf1 Completed infusion; IV Intake: 100ml Disposition Summary: 06/15/23 23:54 Hospitalization Ordered Notes: Hospitalization Status: Inpatient Admission ranjan Provider: Favian Wall cha [facility] ranjan Condition: Fair ranjan Problem: new ranjan Symptoms: have improved ranjan Bed/Room Type: [facility] Room Assignment: 211(06/16/23 02:01) jb4 Diagnosis - Epigastric abdominal tenderness ranjan - Chronic kidney disease, stage 4 (severe) ranjan - Obesity, unspecified ranjan - Vomiting ranjan - Acute pancreatitis without necrosis or infection, unspecified ranjan - Hypomagnesemia ranjan - Chronic combined systolic (congestive) and diastolic (congestive) heart failure ranjan Forms: - Medication Reconciliation Form ranjan - SBAR form ranjan - Leadership Thank You Letter ranjan Signatures: Dispatcher [employer] Sukumar Velez MD MD cha Bryson, James, RN RN jb4 Jessie Moran RN RN pf1 Logdahl, Hunter, RN RN tl4 Corrections: (The following items were deleted from the chart) 06/14 20:31 20:31 BASIC METABOLIC PANEL+C.LAB.BRZ ordered. EDMS EDMS 20:31 20:31 CBC+H.LAB.BRZ ordered. EDMS EDMS 20:31 20:31 HEPATIC FUNCTION+C.LAB.BRZ ordered. EDMS EDMS 20:31 20:31 MAGNESIUM+C.LAB.BRZ ordered. EDMS EDMS 20:31 20:31 PROBNP+C.LAB.BRZ ordered. EDMS EDMS 20:31 20:31 PROTIME (+INR)+COAG.LAB.BRZ ordered. EDMS EDMS 20:31 20:31 Troponin High Sensitivity+C.LAB.BRZ ordered. EDMS EDMS 20:31 20:31 LIPASE+C.LAB.BRZ ordered. EDMS EDMS 20:31 20:31 Urinalysis+U.LAB.BRZ ordered. EDMS EDMS 20:46 20:31 Abdomen Pelvis W Con+CT.RAD.BRZ ordered. EDMS EDMS 20:50 20:31 NS 0.9% IV 1000 ml IV at 1 bolus Per protocol; 1000 mL bolus ordered. ranajn ranjan 21:21 20:51 NS 0.9% IV 500 ml IV at bolus once ordered. ranjan ranjan 23:09 21:29 LIPID PROFILE+C.LAB.BRZ ordered. EDMS EDMS 06/15 02:01 06/14 23:54 ranjan jb4 06/15 02:28 06/14 20:31 IV Saline Lock ordered. ranjan jb4
[2023-06-16] MEDS ORDERED: MAGNESIUM SULFATE 1 gm IVPB 1 GM/100 ML BAG IV ONE (00:20)
[2023-06-16] MEDS ORDERED: ALBUTEROL 2.5 MG/3 ML NEB SOL NEB PRN (01:50)
[2023-06-16] MEDS ORDERED: ONDANSETRON 4 MG/2 ML VIAL IV PRN (01:50)
--- NOTE | 2023-06-16 02:08 | P.HP ---
Certification for Inpatient Patient admitted to: Inpatient With expected LOS: >2 Midnights Patient will require the following post-hospital care: None Practitioner: I am a practitioner with admitting privileges, knowledge of patient current condition, hospital course, and medical plan of care. Services: Services provided to patient in accordance with Admission requirements found in Title 42 Section 412.3 of the Code of Federal Regulations Patient History Date of Service: 06/16/23 Reason for admission: Abdominal pain History of Present Illness: Seven 7-year-old female with past medical history of HTN/DM/dementia/CKD stage III/severe systolic CHF/PVD status post recent right foot wound with DG to osteomyelitis requiring IV vancomycin that was later complicated with vancomycin induced acute renal failure requiring dialysis during readmission 1 week ago, taken of dialysis after initial improvement in renal function and discharged home 3 days ago. Patient represented today because of 1 day history of abdominal pain, pain is located in the right upper quadrant and radiating towards the epigastric as well as the substernal chest region. Symptoms seem similar to her previous gerd or heartburn symptoms. Symptoms continue to persist and patient was brought by caregivers to the emergency room today. Via the ED vital signs were stable, laboratory workup showed creatinine of 2.9, WBC was unremarkable. Serum lipase elevated at 250. proBNP of 3689, magnesium of 1.4. Chest x-ray shows moderate pulmonary congestive changes with indwelling PPM. CT of the abdomen and pelvis shows evidence of acute pancreatitis. Patient has been admitted for acute pancreatitis as well as CHF exacerbation with resolving acute kidney injury. Allergies Penicillins Allergy (Mild, Verified 03/29/14 22:36) Hives/Rash baclofen Allergy (Verified 05/03/23 20:09) Hives/Rash hydrocodone Allergy (Verified 05/03/23 20:09) Hives/Rash No Known Allergie Allergy (Uncoded 11/11/15 08:18) Unknown Home Medications: Amiodarone HCl [Cordarone*] 1 tab PO DAILY 05/30/17 Furosemide 1 tab PO DAILY 05/30/17 Insulin Glargine,Hum.rec.anlog [Lantus] 20 unit SQ DAILY 05/30/17 Sacubitril/Valsartan [Entresto 24 mg-26 mg Tablet] 1 tab PO BID 05/30/17 carvediloL [Carvedilol] 1 tab PO BID 05/30/17 Clopidogrel Bisulfate [Plavix*] 75 mg PO DAILY 08/25/21 Memantine HCl [Namenda] 10 mg PO BID 08/25/21 Gabapentin [Neurontin*] 400 mg PO TIDP PRN 05/03/23 Pantoprazole [Protonix Tab*] 40 mg PO DAILY 05/03/23 Rosuvastatin Calcium [Crestor] 20 mg PO BEDTIME 05/03/23 Tramadol HCl [Ultram] 50 mg PO Q4HP PRN 05/03/23 Amino Acids/Protein Hydrolys [Prosource No Carb Liquid Pkt] 30 ml PO BID 30 Days #60 packet 06/08/23 Calcitrol [Rocaltrol*] 0.25 mcg PO Q48H 30 Days #15 cap 06/08/23 Ensure High Protein 237 ml PO BID can 06/08/23 Gabapentin [Neurontin*] 200 mg PO BID cap 06/08/23 Hydralazine [Apresoline*] 10 mg PO DAILY 30 Days #30 tab 06/08/23 Medihoney [Medihoney Woundcare Gel*] 1 appl TOP DAILY 30 Days #1 tube 06/08/23 - Past Medical/Surgical History Diabetic: Yes -: HLD -: Systolic CHF -: HTN -: DM II -: Dementia -: CKD III with Proteinuria (Dr. Obando/ Dr. Soriano) -: Thrombocytopenia -: PAD -: Pacer/Defib -: Back sX -: Hysterectomy -: Vascular Sx Psychosocial/ Personal History: Patient lives at home with family - Family History Mother -: Hypertension Sister -: Kidney disease Father -: Heart disease Brother -: Heart disease - Social History Alcohol use: No CD- Drugs: No Caffeine use: Yes Place of Residence: Home Review of Systems 10-point ROS is otherwise unremarkable Physical Examination - Physical Exam General: Cooperative, Confused HEENT: Atraumatic, Normocephalic, PERRLA Neck: Supple, 2+ carotid pulse no bruit, JVD not distended Respiratory: Normal air movement, Crackles/rales Cardiovascular: Normal pulses, Regular rate/rhythm, Normal S1 S2, Other (PPM insitu) Gastrointestinal: Normal bowel sounds, Soft and benign, Non-distended, Tenderness (epigastic area) Musculoskeletal: No clubbing, No swelling Integumentary: No rashes, No breakdown, No significant lesion Neurological: Normal speech, Sensation intact, Cranial nerves 3-12 intact - Studies Laboratory Data (last 24 hrs) 06/15/23 06/15/23 06/15/23 23:00 22:11 22:11 WBC 7.20 Hgb 10.3 L Hct 32.7 L Plt Count 152 PT 16.1 H INR 1.48 Sodium 140 Potassium 3.5 BUN 24 H Creatinine 2.98 H Glucose 148 H Magnesium 1.4 L Total Bilirubin 0.4 AST 42 H ALT 46 Alkaline Phosphatase 194 H Triglycerides 77 Cholesterol 92 HDL Cholesterol 28 L Cholesterol/HDL Ratio 3.29 Lipase 250 H 06/15/23 21:28 WBC Hgb Hct Plt Count PT INR Sodium Potassium BUN Creatinine Glucose Magnesium Total Bilirubin AST ALT Alkaline Phosphatase Triglycerides Cancelled Cholesterol Cancelled HDL Cholesterol Cancelled Cholesterol/HDL Ratio Cancelled Lipase Assessment and Plan - Problems (Diagnosis) (1) Acute pancreatitis Current Visit: Yes Status: Acute (2) Pulmonary edema Onset Date: 08/19/14 Current Visit: No Status: Acute (3) Diabetes mellitus, type II Onset Date: 05/31/16 Current Visit: No Status: Chronic Qualifiers: (4) Hyperlipidemia Onset Date: 05/31/16 Current Visit: No Status: Chronic Qualifiers: (5) Hypertension Onset Date: 05/31/16 Current Visit: No Status: Chronic (6) Presence of permanent cardiac pacemaker Onset Date: 05/31/16 Current Visit: No Status: Chronic - Plan Impression Acute pancreatitis Hypertension DM Acute kidney injury on CKD stage IIIresolving Acute systolic CHF exacerbation Acute pulmonary edema Indwelling cardiac pacemaker History of dementia History of PVD Recent right foot osteomyelitiscompleted antibiotics use yesterday, on [facility] care use Protein calorie malnutritionpresumed mild, on amino acids supplementation Plan Will admit patient to inpatient status Will place n.p.o. As needed pain regimen Monitor daily lipase level Hold amino acids supplementation for now since June because reporting to pancreat itis on dual unclear relationship IV Protonix every 12 Given CHF exacerbation, start IV Lasix every 8 Continue to monitor renal function Nephrology consult in a.m. Insulin sliding scale with Accu-Cheks Continue wound care therapy Subcutaneous heparin for DVT prophylaxis - Advance Directives Does patient have a Living Will: Yes Does patient have a Durable POA for Healthcare: No
[2023-06-16] MEDS ORDERED: HYDRALAZINE HCL 20 MG/ML VIAL IV PRN (02:09)
[2023-06-16] MEDS: FUROSEMIDE 40 MG TABLET PO SCH (03:29)
[2023-06-16] MEDS: MORPHINE 2 MG/ML SYR IV PRN (03:30)
[2023-06-16] MEDS: Magnesium Sulfate 2gm IVPB 2 G/50 ML BAG IV ONE (03:30)
[2023-06-16 04:24] VITALS: BMI 34.9
[2023-06-16 04:39] LABS: C-Reactive Protein 23.6 mg/L (<3.00); Magnesium 1.8 mg/dL (1.6-2.4)
--- NOTE | 2023-06-16 06:57 | P.PN ---
Date of Service: 06/16/23 Subjective: In no apparent distress. + upper abdominal pain + decreased appetite Plan of care discussed with daughter at bedside. Physical Exam: General: In no apparent distress. Somnolent. Oriented x2-3. HEENT:Normocephalic, atraumatic. Resp: slightly diminished. Unlabored respirations on room air. CV: Regular rate. BLE edema 1+. Weak pedal pulses. Right upper arm PICC line. Abd: upper abdominal tenderness on palpation. hypoactive bowel sounds. Skin/MSK: Right heel stage II. Right second toe discoloration. Left heel DTI. Vitals Reviewed Assessment and Plan Problem List Acute pancreatitis CKD IV Acute on Chronic Systolic CHF Diabetes mellitus, type II Hyperlipidemia Hypertension Dementia Peripheral Arterial Disease Recent treatment right foot osteomyelitis CAD S/p ICD in 2019 Acute Pancreatitis -Patient with decreased appetite and epigastric pain. Reported emesis x [address] abdomen pelvis 06/14: Acute pancreatitis suspected. Abdominal ultrasound 06/14 : "The gallbladder demonstrates no gallstones. No pericholecystic fluid or gallbladder wall thickening. The common bile duct is normal measuring 3 mm. The liver demonstrates no findings of intrahepatic biliary dilatation." -Received 1.5 L fluids -PRN pain medication -Monitor lipase - zofran prn - pepcid - NPO Chronic kidney disease stage IV -Nephrology consulted, recommendations appreciated. -During prior admission patient renal function declined to where she received a few sessions of dialysis. Diabetes mellitus type 2 -Accu-Cheks -Insulin per sliding scale Osteomyelitis right second toe Right heel pressure ulcer stage II -Completed course of 6 weeks of IV antibiotic therapy on 06/13. has PICC line right upper arm. -Continue wound care. -Pressure offloading measures Hypertension Hyperlipidemia systolic CHF -Resume home meds DVT prophylaxis: Plavix Full code Dispo: > 48 hours
[2023-06-16] MEDS: INSULIN REGULAR (HUMAN) 100 UNIT/ML SQ SCH (07:30)
[2023-06-16] MEDS: MEDIHONEY 44 ML TOPICAL TUBE TOP SCH (09:30)
[2023-06-16] MEDS: AMIODARONE HCL 200 MG TAB PO SCH (09:31)
[2023-06-16] MEDS: SACUBITRIL/VALSARTAN 24/26 MG TAB PO SCH (09:31)
[2023-06-16] MEDS: GABAPENTIN 100 MG CAP PO SCH (09:31)
[2023-06-16] MEDS: CALCITROL 0.25 MCG CAP PO SCH (09:31)
[2023-06-16] MEDS: MEMANTINE HCL 10 MG TABLET PO SCH (09:31)
[2023-06-16] MEDS: CLOPIDOGREL 75 MG TABLET PO SCH (09:31)
[2023-06-16] MEDS: FAMOTIDINE 20 MG/2 ML VIAL IV SCH (09:32)
[2023-06-16] MEDS: HEPARIN 5000 UNIT/ML 1 ML VIAL ONE ×2 (09:38→21:52)
[2023-06-16] MEDS: HEPARIN 5000 UNIT/ML 1 ML VIAL SQ SCH (09:39)
[2023-06-16] MEDS: ALTEPLASE 2 MG/VIAL IV SCH (11:18)
--- NOTE | 2023-06-16 12:27 | CON ---
Date of Consultation: 06/16/2023 Reason For Consultation: Elevated BUN and creatinine, fluid management. 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 The patient receiv ed a couple of session of dialysis and discharged. Apparently, the patient maintained on Lasix. The patient came to the hospital with abdominal pain, nausea and vomiting, found to have pancreatitis. The patient found to have elevation in BUN and creatinine. For that reason, we have been consulted. The patient being on Lasix 40 mg as outpatient. Upon discharge from the hospital, the patient's cre atinine was 2.5-3 with GFR of 15. Today creatinine 2.9 with GFR of 16, patient on room air. Allergies: TO PENICILLIN, BACLOFEN, HYDROCODONE, AND VANCOMYCIN. Home Medications: Including amiodarone, Lasix 40 mg daily, insulin, Entresto, carvedilol b.i.d., Nicola vix, Namenda, atorvastatin, Ensure, gabapentin, hydralazine. Past Medical History: Include: 1.Diabetes complicated with neuropathy and nephropathy. 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 3.CAD, status post ICD back in 2019, complicated with congestive heart failure, ejection fraction of 30%. 4.Diabetes complicated with neuropathy and nephropathy since 2007. 5.PAD. 6.Osteomyelitis. Past Surgical History: Include: 1.ICD. 2.Back surgery. 3.Hysterectomy. 4.Angiogram. 5.Vascular disease. 6.ICD placement. 7.PE. Family History: Positive for diabetes and hypertension and end-stage renal disease. Social History: Denied smoking. Denied drinking. Denied drugs abuse. Review of Systems: Head and Neck: No red eye. No ear pain. GI: Has abdominal pain. Has nausea, vomiting. : No polyuria, no dysuria, no hematuria. Professor Of English: No vaginal discharge. Respiratory: No shortness of breath. Cardiovascular: No chest pain. Endocrine: No polydipsia. Skin: No rash. Neuro: Has neuropathy. Musculoskeletal: Generalized fatigue. Physical Examination: Vital Signs: Blood pressure 135/58, pulse of 56, afebrile. Chest: Clear to auscultation. Heart: S1, S2. Regular. Systolic murmur. Abdomen: Mild tenderness, no guarding or rebound. Extremities: Trace edema. Neurologic: Alert, no focality. Laboratory Data: Sodium 140, potassium 3.5, bicarb 26, BUN 24, creatinine 2.9, calcium 8.5, magnesiu m 1.4. WBC 7.2, hemoglobin 10.4. Urinalysis still pending. Current Medications: The patient on include Plavix, amiodarone, hydralazine, Entresto, gabapentin 20 0 b.i.d., Namenda, Lasix 80 t.i.d., Zofran, morphine. Assessment And Plan: 1.Chronic kidney disease, stage 4, advanced secondary to cardiorenal, normal volume. Currently with nausea and vomiting, poor intake secondary to pancreatitis, looked to me more normal volume and poss ible she is going to get dehydrated. I am going to go ahead and decrease Lasix to 20 mg daily and we will monitor. Continue Entresto. 2.Hypertension, controlled, optimal. We will decrease the Lasix as above. 3.Secondary hyperparathyroid, stable. 4.Congestive heart failure. Normal volume as above. 5.Pancreatitis as by primary. 6.Diabetes as by primary. 7.Hypokalemia. I am going to be reluctant on replacement currently given the current kidney functio n. We will follow up. SABINA Voice ID: [id number] Report ID: [id number]
[2023-06-16] MEDS ORDERED: D10W 250 ML IV SCH (18:29)
[2023-06-16] MEDS: D10W 250 ML IV ONE (18:34)
[2023-06-16] MEDS: ROSUVASTATIN 10 MG TAB PO SCH (21:00)
[2023-06-16] MEDS: D5NS KCL 20MEQ 20 MEQ/1,000 ML BAG IV SCH (22:10)
[2023-06-17] MEDS: D10W 250 ML IV SCH (00:12)
[2023-06-17 00:49] VITALS: O2SAT 95
[2023-06-17] MEDS ORDERED: D10W 250 ML IV SCH (01:00)
[2023-06-17] MEDS: DEXTROSE 10%-WATER 500 ML IV SCH (03:36)
[2023-06-17 04:24] LABS: Magnesium 2.1 mg/dL (1.6-2.4)
[2023-06-17] MEDS: MORPHINE 4 MG/ML SYR IV PRN (05:51)
[2023-06-17 06:09] LABS: Absolute Eosinophils 0.1 K/uL (0-0.5); Absolute Lymphocytes (CBC) 0.6 K/uL (0.7-4.9); Absolute Monocytes 0.7 K/uL (0.1-1.3); Absolute Neutrophil 5.7 K/uL (1.8-8.0); Basophils % 0.4 % (0-1.3); Eosinophils % 1.5 % (0-4.4); Hematocrit 25.9 % (36.0-45.0); Hemoglobin 8.5 g/dL (12.0-15.0); Lymphocytes % 8.3 % (15.3-44.8); MCH 29.3 pg (27.0-35.0); MCHC 32.9 g/dL (32.0-36.0); MCV 88.9 fL (80-100); MPV 10.7 fL (7.6-11.3); Monocytes % 10.3 % (3.3-12.3); Neutrophils % 79.5 % (41.7-73.7); Nucleated Red Blood Cells % 0.3 % (0-0); Platelets 123 thou/uL (152-406); RBC Red Blood Cell Count 2.92 M/uL (3.86-4.86); Red Cell Distribution Width 16.9 % (12.1-15.2)
[2023-06-17 06:28] LABS: Albumin 2.2 g/dL (3.4-5.0); Albumin/Globulin Ratio 0.6 (1.1-1.8); Anion Gap 8.2 mEq/L (5.0-15.0); Bilirubin Total 0.4 mg/dL (0.2-1.0); Globulin 3.6 g/dL (2.3-3.5); Potassium 3.2 mEq/L (3.5-5.1); Protein, Total 5.8 g/dL (6.4-8.2)
[2023-06-17] MEDS: FUROSEMIDE 40 MG TABLET PO SCH (08:36)
--- NOTE | 2023-06-17 09:10 | P.PN ---
Date of Service: 06/17/23 Subjective: Patient awake, alert today. Reports significant improvement in pain and nausea. No acute events overnight. No new or worsening complaints. 10 point ROS as noted above, otherwise negative Physical Exam: General: In no apparent distress. Awake, alert, oriented x 3. HEENT:Normocephalic, atraumatic. Sclera nonicteric. Resp: slightly diminished. Unlabored respirations on room air. CV: Regular rate. Trace BLE edema. weak pedal pulses. Right upper arm PICC line. Abd: Soft nontender, nondistended. Normal bowel sounds. Skin/MSK: Right heel stage II. Right second toe discoloration. Left heel DTI. Vitals Reviewed Assessment and Plan Problem List Acute pancreatitis CKD IV Acute on Chronic Systolic CHF Diabetes mellitus, type II Hyperlipidemia Hypertension Dementia Peripheral Arterial Disease Recent treatment right foot osteomyelitis CAD S/p ICD in 2019 Acute Pancreatitis - Patient with decreased appetite and epigastric pain on admission. Reported emesis x 2 prior to arrival - CT abdomen pelvis 06/14: Acute pancreatitis suspected. - Abdominal ultrasound 06/14 : "The gallbladder demonstrates no gallstones. No pericholecystic fluid or gallbladder wall thickening. The common bile duct is normal measuring 3 mm. The liver demonstrates no findings of intrahepatic biliary dilatation." - Received 1.5 L fluids - PRN pain medication - Monitor lipase. Improving. - zofran prn - pepcid - Full liquid diet advance as tolerated. Decreased appetite, nutritional supplementation. Diabetes mellitus type 2 -Accu-Cheks -Insulin per sliding scale Chronic kidney disease stage IV -Nephrology consulted, recommendations appreciated. -During prior admission patient renal function declined to where she received a few sessions of dialysis. Hypertension Hyperlipidemia systolic CHF -Resume home meds Osteomyelitis right second toe Right heel pressure ulcer stage II -Completed course of 6 weeks of IV antibiotic therapy on 06/13. has PICC line right upper arm. -Continue wound care. -Pressure offloading measures VTE: heparin Full code Dispo: ~24-48 hr
[2023-06-17] MEDS: HEPARIN 5000 UNIT/ML 1 ML VIAL SQ SCH (11:19)
--- NOTE | 2023-06-17 13:00 | EKG ---
Test Date: 2023-06-15 Test Time: 20:37:23 Rubber Turner: JAE MEASUREMENT RESULTS: Intervals: Rate: 57 NJ: 224 QRSD: 136 QT: 546 QTc: 531 [place]: P: 76 NJ: 224 QRS: -26 T: 72 INTERPRETIVE STATEMENTS: Sinus bradycardia with 1st degree AV block Nonspecific intraventricular block Possible Anterolateral infarct, age undetermined Abnormal ECG Compared to ECG 05/19/2023 16:24:48 Sinus rhythm no longer present Left-axis deviation no longer present Right bundle-branch block no longer present Myocardial infarct finding still present Electronically Signed On 06-17-23 12:55:37 CDT by Lee Garza
[2023-06-17] MEDS: MORPHINE 2 MG/ML SYR IV PRN (19:49)
[2023-06-17] MEDS: ENSURE CLEAR 200 ML CAN PO SCH (19:50)
[2023-06-17 22:38] LABS: Calcium Oxalate Crystals- Ur Few /HPF (None Seen); Specific Gravity 1.012 (1.005-1.030); Sqamous Epithelial <5 /HPF (None Seen); Urine Bacteria None Seen /HPF (<20); Urine Bilirubin NEGATIVE (Negative); Urine Blood Negative (Negative); Urine Clarity Turbid (Clear); Urine Color Light-Yellow (Yellow); Urine Culture Reflex Order NOT NEEDED; Urine Glucose NEGATIVE (Negative); Urine Ketones NEGATIVE (Negative); Urine Microscopic Reflex YN ORDER UMIC; Urine Mucus Slight /HPF (None Seen); Urine Nitrite NEGATIVE (Negative); Urine Protein 1+ (Negative); Urine RBC <5 /HPF (None Seen); Urine Urobilinogen Normal (Normal); Urine WBC <5 /HPF (<5); Urine pH 5.5 (5.0-7.0)
[2023-06-17] MEDS: BENZONATATE 100 MG CAP PO PRN (23:29)
--- NOTE | 2023-06-18 03:00 | PN ---
Date of Progress Note: 06/17/2023 Chief Complaint: Elevated BUN and creatinine level, acute on chronic kidney injury. History Of Present Illness: The patient is a 77-year-old woman. She has multiple medical problems i ncluding history of chronic kidney disease stage IIIB advancing to stage IV secondary to diabetes alba litus and hypertension. The patient has diabetic nephropathy, cardiorenal syndrome, recent history o f severe acute kidney injury secondary to vancomycin toxicity. She required to initiate dialysis and then she was weaned off dialysis when renal function improved. The patient received couple session of dialysis and subsequently renal function improved and volemia improved in response to dialysis and congestive heart failure improved. The patient is on Lasix for congestive heart failure. She was f ound to have acute pancreatitis. She came to the hospital with abdominal pain, nausea, vomiting. Th e patient was found to have elevated BUN and creatinine level, GFR declined from 24 to 15. The creat inine level remains elevated and ranging from 2.5 to 2.9. Review of Systems: The patient denies new complaints. Physical Examination: Lungs: Normal respiratory effort. No wheezing. No rhonchi. Heart: S1, S2. Abdomen: No guarding. No rebound. Extremities: No edema. Impression And Plan: 1.Chronic kidney disease stage 4. Advanced chronic kidney disease with history of superimposed acut e kidney injury, cardiorenal syndrome. Continue Entresto for congestive heart failure with severe sy stolic dysfunction. Lasix was decreased due to acute kidney injury. 2.Hypertension. The patient is on Lasix, dose was decreased due to acute kidney injury. 3.Secondary hyperparathyroid, is monitored. Intact PTH, phosphorus. 4.Congestive heart failure. Continue Lasix according to the volemia status. 5.Pancreatitis per primary team. 6.Diabetes mellitus. Continue insulin per primary team. 7.Hypokalemia. Monitor electrolytes. The potassium has improved. Monitor magnesium and phosphorus . EB/MODL Voice ID: [id number] Report ID: [id number]
[2023-06-18] MEDS: MORPHINE 4 MG/ML SYR IV PRN (04:45)
[2023-06-18 05:23] LABS: Hematocrit 27.2 % (36.0-45.0); Hemoglobin 8.7 g/dL (12.0-15.0); MCH 28.5 pg (27.0-35.0); MCHC 31.8 g/dL (32.0-36.0); MCV 89.6 fL (80-100); MPV 11.4 fL (7.6-11.3); Platelets 109 thou/uL (152-406); RBC Red Blood Cell Count 3.04 M/uL (3.86-4.86); Red Cell Distribution Width 17.1 % (12.1-15.2)
[2023-06-18 05:43] LABS: Albumin 1.9 g/dL (3.4-5.0); Anion Gap 7.5 mEq/L (5.0-15.0); Phosphorus 2.7 mg/dL (2.5-4.9); Potassium 3.5 mEq/L (3.5-5.1)
--- NOTE | 2023-06-18 07:15 | P.PN ---
Date of Service: 06/18/23 Subjective: Blood sugar low overnight, patient was refusing to eat/drink due to fear of abdominal pain. 10 point ROS as noted above, otherwise negative Physical Exam: General: HEENT: Resp: CV: Abd: Skin/MSK: Vitals Reviewed Assessment and Plan Problem List Acute pancreatitis CKD IV Acute on Chronic Systolic CHF Diabetes mellitus, type II Hyperlipidemia Hypertension Dementia Peripheral Arterial Disease Recent treatment right foot osteomyelitis CAD S/p ICD in 2019 Acute Pancreatitis - Patient with decreased appetite and epigastric pain on admission. Reported emesis x 2 prior to arrival - CT abdomen pelvis 06/14: Acute pancreatitis suspected. - Abdominal ultrasound 06/14 : "The gallbladder demonstrates no gallstones. No pericholecystic fluid or gallbladder wall thickening. The common bile duct is normal measuring 3 mm. The liver demonstrates no findings of intrahepatic biliary dilatation." - Lipase improving ( 608 -> 218 -> 103) - zofran, analgesics PRN - pepcid - Advance diet as tolerated. Nutritional supplementation. Diabetes mellitus type 2 -Accu-Cheks ACHS -Insulin per sliding scale Chronic kidney disease stage IV -During prior admission patient renal function declined to where she received a few sessions of dialysis. -Nephrology consulted, recommendations appreciated. Hypertension Hyperlipidemia systolic CHF -Resume home meds Osteomyelitis right second toe Right heel pressure ulcer stage II -Completed course of 6 weeks of IV antibiotic therapy on 06/13. has PICC line right upper arm. -Continue wound care. -Pressure offloading measures VTE: heparin Full code Dispo: home in 24 hours
[2023-06-18] MEDS: POTASSIUM CL SA 10 MEQ TAB PO ONE (08:36)
[2023-06-18 12:34] VITALS: BP 119/58; TEMP 99.5
[2023-06-18] MEDS: EPOETIN ALFA-EPBX 10,000 UNIT/ML VIAL SQ ONE (14:04)
[2023-06-18] MEDS: TRAMADOL HCL 50 MG TAB PO PRN (14:04)
--- NOTE | 2023-06-18 15:10 | P.DS ---
Admission Date: 06/16/23 Discharge Date: 06/18/23 Disposition: [place] [facility] Discharge Condition: FAIR Reason for Admission: Abdominal pain Brief History of Present Illness: 77-year-old female with past medical history of HTN/DM/dementia/CKD stage III/severe systolic CHF/PVD status post outpatient IV antibiotics for osteomyelitis prepresented to the ER for right upper quadrant and epigastric abdominal pain. Symptoms seem similar to her previous gerd or heartburn symptoms. Laboratory workup in the ED showed creatinine of 2.9, WBC was unremarkable. Serum lipase elevated at 250. proBNP of 3689, magnesium of 1.4. Chest x-ray shows moderate pulmonary congestive changes with indwelling PPM. CT of the abdomen and pelvis shows evidence of acute pancreatitis. Patient was admitted for acute pancreatitis as well as CHF exacerbation with resolving acute kidney injury. Hospital Course: Diagnosis Acute pancreatitis CKD IV Acute on Chronic Systolic CHF Diabetes mellitus, type II Hyperlipidemia Hypertension Dementia Peripheral Arterial Disease Recent treatment right foot osteomyelitis CAD S/p ICD in 2019 Patient was admitted to the medical floor following medical problems addressed: Acute Pancreatitis Patient with decreased appetite and epigastric pain on admission. Reported emesis x [address] abdomen pelvis 06/14: Acute pancreatitis suspected. Abdominal ultrasound 06/14 : "The gallbladder demonstrates no gallstones. No pericholecystic fluid or gallbladder wall thickening. The common bile duct is normal measuring 3 mm. The liver demonstrates no findings of intrahepatic biliary dilatation." She had elevated lipase which improved to normal. She was on pepcid for gastritis. Patient tolerated diet advancement. She denies any pain today, vitals are stable for discharge. Diabetes mellitus type 2 Hypoglycemia Patient had an episode of hypoglycemia during the hospital stay. She is on basal insulin-Lantus which was held. Blood sugar was managed with insulin sliding scale. Chronic kidney disease stage IV During prior admission patient renal function declined to where she received a few sessions of dialysis. Patient renal function has been stable during this hospital stay. She was seen in consultation by nephrology, her Lasix dose was decreased to 20 mg daily given her reduced oral intake. She has tolerated diet. Hypertension Hyperlipidemia systolic CHF Continue home meds Osteomyelitis right second toe Right heel pressure ulcer stage II She completed course of 6 weeks of IV antibiotic therapy on 06/13. PICC line removed Continue local wound care. Patient's symptoms have improved, clinically at baseline and deemed stable for discharge. Vital Signs/Physical Exam: Temp Pulse Resp BP Pulse Ox 99.5 F 61 16 119/58 L 96 06/18/23 12:00 06/18/23 12:00 06/18/23 12:00 06/18/23 12:00 06/18/23 12:00 General: In no apparent distress, Demented, Other (Awake) HEENT: Mucous membr. moist/pink Neck: Supple, JVD not distended Respiratory: Clear to auscultation bilaterally Cardiovascular: No edema, Regular rate/rhythm, Normal S1 S2 Gastrointestinal: Soft and benign, Non-distended, No tenderness Musculoskeletal: No swelling Neurological: Other (No focal motor deficit.) Laboratory Data at Discharge: WBC 6.60 thou/uL (4.3-10.9) 06/18/23 05:00 Hgb 8.7 g/dL (12.0-15.0) L 06/18/23 05:00 Hct 27.2 % (36.0-45.0) L 06/18/23 05:00 Plt Count 109 thou/uL (152-406) L 06/18/23 05:00 PT 16.1 SECONDS (9.5-12.5) H 06/15/23 22:11 INR 1.48 06/15/23 22:11 Sodium Cancelled 06/18/23 Unknown Potassium Cancelled 06/18/23 Unknown BUN Cancelled 06/18/23 Unknown Creatinine Cancelled 06/18/23 Unknown Glucose Cancelled 06/18/23 Unknown Phosphorus 2.7 mg/dL (2.5-4.9) 06/18/23 05:00 Magnesium 1.8 mg/dL (1.6-2.4) 06/18/23 05:00 Total Bilirubin 0.4 mg/dL (0.2-1.0) 06/17/23 06:01 AST 24 U/L (15-37) 06/17/23 06:01 ALT 29 U/L (13-56) 06/17/23 06:01 Alkaline Phosphatase 144 U/L (45-117) H 06/17/23 06:01 Triglycerides 77 mg/dL (<150) 06/15/23 23:00 Cholesterol 92 mg/dL (<200) 06/15/23 23:00 HDL Cholesterol 28 mg/dL (40-60) L 06/15/23 23:00 Cholesterol/HDL Ratio 3.29 06/15/23 23:00 Lipase Cancelled 06/18/23 Unknown Home Medications: Amiodarone HCl [Cordarone*] 1 tab PO DAILY 05/30/17 Sacubitril/Valsartan [Entresto 24 mg-26 mg Tablet] 1 tab PO BID 05/30/17 Clopidogrel Bisulfate [Plavix*] 75 mg PO DAILY 08/25/21 Memantine HCl [Namenda] 10 mg PO BID 08/25/21 Pantoprazole [Protonix Tab*] 40 mg PO DAILY 05/03/23 Rosuvastatin Calcium [Crestor] 20 mg PO BEDTIME 05/03/23 Tramadol HCl [Ultram] 50 mg PO Q4HP PRN 05/03/23 Calcitrol [Rocaltrol*] 0.25 mcg PO Q48H 30 Days #15 cap 06/08/23 Medihoney [Medihoney Woundcare Gel*] 1 appl TOP DAILY 30 Days #1 tube 06/08/23 Ensure Clear 237 ml PO BID #60 can 06/18/23 Furosemide [Lasix] 20 mg PO DAILY #30 tab 06/18/23 Gabapentin [Neurontin*] 200 mg PO BID #60 cap 06/18/23 New Medications: Ensure Clear 237 ml PO BID #60 can Furosemide [Lasix] 20 mg PO DAILY #30 tab Gabapentin [Neurontin*] 200 mg PO BID #60 cap Physician Discharge Instructions: Patient presented with decreased appetite and epigastric pain and vomited twice. CT abdomen pelvis showed possible acute pancreatitis, along with elevated lipase Abdominal ultrasound showed the gallbladder with no gallstones. No pericholecystic fluid or gallbladder wall thickening, no cholecystitis. The liver demonstrates no findings of intrahepatic biliary dilatation." She had elevated lipase which improved to normal. She was on pepcid for gastritis. Patient tolerated diet advancement. For diet diabetes mellitus type 2 Patient had an episode of hypoglycemia during the hospital stay. She is on basal insulin-Lantus which has been discontinued for now Blood sugar was managed with insulin sliding scale. Chronic kidney disease stage IV During prior admission patient renal function declined to where she received a f ew sessions of dialysis. Patient renal function has been stable during this hospital stay. She was seen in consultation by nephrology, her Lasix dose was decreased to 20 mg daily given her reduced oral intake. She has tolerated diet. Diet: ADA Activity: Fall precautions Followup: Patrick Stubbs MD [ACTIVE - CAN ADMIT] - 1-2 Weeks YO GABRIEL [Primary Care Provider] - 1-2 Weeks Time spent managing pt's care (in minutes): 38
--- NOTE | 2023-06-18 17:03 | PN ---
Date of Progress Note: 06/18/2023 Subjective: The patient was admitted to the hospital with the pancreatitis. The patient had chronic kidney disease with acute kidney injury secondary to prerenal. We adjusted the diuresis. The patie nt's kidney function stayed stable. The patient is feeling well. Objective: Vital Signs: Blood pressure 119/58, pulse of 61. Chest: Clear to auscultation. Heart: S1, S2. Regular. Abdomen: Soft, mild tenderness. No guarding or rebound. Extremities: Trace edema. Neurologic: Alert. No focality. No tremor. Laboratory Data: Hemoglobin 8.7, sodium 141, potassium 3.5, bicarb 27, BUN 22, creatinine 2.6, GFR o f 19, calcium 7.9, phosphorus 2.7, albumin 1.9, corrected calcium is 9.5. Current Medications: The patient on, it includes: 1.Plavix. 2.Amiodarone. 3.Rosuvastatin. 4.Entresto. 5.Gabapentin 200 b.i.d. 6.Namenda. 7.Pepcid. 8.Lasix 20 daily. Assessment And Plan: 1.Chronic kidney disease, stage 4, secondary to cardiorenal/toxic ATN secondary to vancomycin toxici ty. Stable. Normal volume. I am going to continue current diuresis dose. 2.Hypertension, controlled, optimal. 3.Anemia of chronic kidney disease. We will dose the patient with JOE single dose and we will follo w up the patient. 4.Pancreatitis, as by primary. 5.Diabetes, as by primary. NICO/SAVANNAL Voice ID: [id number] Report ID: [id number]
[2023-06-19] MEDS ORDERED: FAMOTIDINE 20 MG/2 ML VIAL IV SCH (09:00)
== END 2023-06-18 15:57 | disposition home health service (06) | DRG 438 ==
LOC: ER 20:10 → ERHOLD 06-16 01:50 → 2ND 06-16 02:18
PROVIDERS: ADMIT Internal Medicine; ATTEND Internal Medicine
PROC: 02PY33Z Removal of Infusion Device from Great Vessel, Percutaneous Approach (ICD-10-PCS; principal; 2023-06-16)
DX: K85.90 Acute pancreatitis without necrosis or infection, unspecified (principal); I50.23 Acute on chronic systolic (congestive) heart failure; N17.0 Acute kidney failure with tubular necrosis; I13.0 Hypertensive heart and chronic kidney disease with heart failure and stage 1 through stage 4 chronic kidney disease, or unspecified chronic kidney disease; E44.1 Mild protein-calorie malnutrition; N18.4 Chronic kidney disease, stage 4 (severe); M86.8X7 Other osteomyelitis, ankle and foot; N25.81 Secondary hyperparathyroidism of renal origin; E11.69 Type 2 diabetes mellitus with other specified complication; E11.22 Type 2 diabetes mellitus with diabetic chronic kidney disease; E11.51 Type 2 diabetes mellitus with diabetic peripheral angiopathy without gangrene; E11.649 Type 2 diabetes mellitus with hypoglycemia without coma; D63.1 Anemia in chronic kidney disease; E83.42 Hypomagnesemia; E87.6 Hypokalemia; E78.5 Hyperlipidemia, unspecified; K29.70 Gastritis, unspecified, without bleeding; K21.9 Gastro-esophageal reflux disease without esophagitis; L89.612 Pressure ulcer of right heel, stage 2; L89.626 Pressure-induced deep tissue damage of left heel; I25.10 Atherosclerotic heart disease of native coronary artery without angina pectoris; F03.90 Unspecified dementia, unspecified severity, without behavioral disturbance, psychotic disturbance, mood disturbance, and anxiety; T36.8X5A Adverse effect of other systemic antibiotics, initial encounter; Z88.0 Allergy status to penicillin; Z88.5 Allergy status to narcotic agent; Z79.4 Long term (current) use of insulin; Z68.34 Body mass index [BMI] 34.0-34.9, adult; Z79.02 Long term (current) use of antithrombotics/antiplatelets; Z79.899 Other long term (current) drug therapy; Z90.710 Acquired absence of both cervix and uterus; Z95.810 Presence of automatic (implantable) cardiac defibrillator
CPT/HCPCS: 36415; 36569; 71045; 74176; 76705; 80048; 80053; 80061; 80069; 80076; 81001; 82947; 83690; 83735; 83880; 84484; 85025; 85027; 85610; 86140; 93005; 99285; C9113; J1644; J2270; J2405; J2997; J3010; J3475; J3480; J7030; J7040; Q5106

== ENCOUNTER 2023-07-29 15:55 | Emergency (ER) | payer OTHER ==
[2023-07-29] MEDS ORDERED: EPINEPHrine 1 MG/10 ML SYR IV ONE ×2 (15:56)
[2023-07-29] MEDS ORDERED: Calcium Chloride 10% INJ SYR IV ONE ×3 (15:56→16:19)
[2023-07-29] MEDS ORDERED: ATROPINE SULFATE 1 MG/ML INJ IV ONE (15:56)
[2023-07-29] MEDS ORDERED: ATROPINE SULF 1 MG/10 ML SYR IV ONE (15:56)
[2023-07-29] MEDS ORDERED: NA CHLORIDE 0.9% 1,000 ML IV ONE ×2 (15:56)
[2023-07-29] MEDS ORDERED: INSULIN REGULAR (HUMAN) 100 UNIT/ML ONE (16:20)
[2023-07-29] MEDS ORDERED: D10W 250 ML IV ONE (16:21)
--- NOTE | 2023-07-29 17:37 | ER ---
Nurse's Notes [facility] Name: Sangita Hendrix Age: 77 yrs Sex: Female : 1945 Arrival Date: 07/29/2023 Time: 15:12 Bed 3 Private MD: Diagnosis: Cardiopulmonary arrest Presentation: 07/28 15:56 Chief complaint: EMS states: they were toned out for a 78yr old female that was found kc6 down, unresponsive. pt was sinus arabella, placed on the pacers and intubated with a 7.5 ET tube, 24 at the teeth en route by EMS. pt was also started on 15mcg/kg/min of Levophed by EMS. BGL en route 130. 15:56 Care prior to arrival: Assisted ventilation, Oral intubation, IV initiated. IO to the kc6 right tibia. Compressions began at 16:00. 15:56 Method Of Arrival: EMS: [facility] 15:56 Acuity: MADISYN [address] [facility] 15:56 Coronavirus screen: At this time, the client does not indicate any symptoms associated [facility] with coronavirus-19. Ebola Screen: No symptoms or risks identified at this time. 15:56 Initial Sepsis Screen: Does the patient meet any 2 criteria? No. Patient's initial [facility] sepsis screen is negative. Does the patient have a suspected source of infection? No. Patient's initial sepsis screen is negative. Risk Assessment: Do you want to hurt yourself or someone else? Unable to obtain. Onset of symptoms was July 29, 2023. 15:56 Activity prior to arrival: unresponsive. [facility] Triage Assessment: 15:56 General: Appears distressed, well developed, Behavior is unresponsive. Pain: Unable to kc use pain scale. Patient is unresponsive. Historical: - Allergies: 15:56 Baclofen; [facility] 15:56 [place]; [facility] 15:56 PEN[address]INS; [facility] - Home Meds: 15:56 Unable to obtain [Active]; 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 - Infectious Disease History:: Denies. - Social history:: Smoking status: unknown. - Code Status:: Full code. Screenin:56 Abuse screen: Denies threats or abuse. Denies injuries from another. Nutritional kc6 screening: No deficits noted. Tuberculosis screening: No symptoms or risk factors identified. Assessment: 16:00 CPR assessment: unresponsive, Ambu ventilation, compressions started. kc6 16:05 CPR assessment: unresponsive, Ambu ventilation, pulses absent w/ compressions. Cardiac kc6 rhythm is asystole. 16:13 CPR assessment: Ambu ventilation, pulses absent w/ compressions. Cardiac rhythm is kc6 asystole. 16:17 Cardiac rhythm is V fib. kc6 16:17 CPR assessment: unresponsive, Ambu ventilation, pulses absent w/ compressions, shocked kc6 at 200J. 16:21 Cardiac rhythm is asystole. kc6 16:21 CPR assessment: unresponsive, Ambu ventilation, pulses absent w/ compressions. kc6 16:23 Cardiac rhythm is paced bradycardia at 43bpm. kc6 16:23 CPR assessment: unresponsive, Ambu ventilation. kc6 16:25 Cardiac rhythm is ventricular escape. kc6 16:25 CPR assessment: unresponsive, Ambu ventilation, pulses absent w/ compressions. kc6 16:28 Cardiac rhythm is asystole. kc6 16:28 CPR assessment: unresponsive, Ambu ventilation, pulses absent w/ compressions. kc6 Vital Signs: 16:24 BP 68 / 57; kc6 16:27 BP 84 / 26; kc6 ED Course: 15:56 Arm band placed on. kc6 15:56 Maintain EMS IV. Dressing intact. Good blood return noted. Site clean \T\ dry. Gauge \T\ dominick 6 site: IO to the right tibia. 15:56 Patient has correct armband on for positive identification. Bed in low position. Call kc6 light in reach. Side rails up X2. 16:01 Patient arrived in ED. bd 16:10 Assisted provider with central line placement. Set up central line tray. Triple lumen kc6 line placed in left subclavian. Line placed by John Orourke MD Placement verified by blood return, Dressed with Tape, Patient tolerated well. Was handwashing/sanitizing done immediately prior to procedure? Yes. Was patient positioned to in a way to prevent air embolism? Yes. Was procedure site sterilized? Yes, with chlorhexidine. Was the site allowed to dry? Yes. During the procedure, did the Practitioner(s) maintain a sterile field? Yes. Were unused ports clamped during insertion? Yes. 16:20 John Orourke MD is Attending Physician. rt 16:33 Triage completed. kc6 16:37 Jacqueline Gray, ANAMARIA is Primary Nurse. db 16:58 contacted [facility] to have the motorized squad commanding officer technical agronomist come to ER. bd 17:35 John Orourke MD is Pronouncing Provider. sp3 Administered Medications: 16:01 Drug: EPINEPHrine 0.1mg/mL 1:10,000 1 mg IVP once Route: IVP; Site: Other; kc6 16:02 Drug: Atropine 1 mg IVP once Route: IVP; Site: Other; kc6 16:03 Drug: Sodium Bicarbonate 1 amp IVP once; (50 mL); equals 50 mEq Route: IVP; Site: Other;kc6 16:03 Drug: Sodium Bicarbonate 1 amp IVP once; (50 mL); equals 50 mEq Route: IVP; Site: Other;kc6 16:04 Drug: EPINEPHrine 0.1mg/mL 1:10,000 1 mg IVP once Route: IVP; Site: Other; kc6 16:05 Drug: NS 0.9% 1000 ml IV at 1 bolus Per protocol; 1000 mL bolus Route: IV; Rate: 1 kc6 bolus; Site: Other; 16:08 Drug: EPINEPHrine 0.1mg/mL 1:10,000 1 mg IVP once Route: IVP; Site: Other; kc6 16:09 Drug: Sodium Bicarbonate 1 amp IVP once; (50 mL); equals 50 mEq Route: IVP; Site: Other;kc6 16:09 Drug: Sodium Bicarbonate 1 amp IVP once; (50 mL); equals 50 mEq Route: IVP; Site: Other;kc6 16:11 Drug: EPINEPHrine 0.1mg/mL 1:10,000 1 mg IVP once Route: IVP; Site: left subclavian; kc6 16:12 Drug: Atropine 1 mg IVP once Route: IVP; Site: left subclavian; kc6 16:15 Drug: EPINEPHrine 0.1mg/mL 1:10,000 1 mg IVP once Route: IVP; Site: left subclavian; kc6 16:15 Drug: Atropine 1 mg IVP once Route: IVP; Site: left subclavian; kc6 16:15 Drug: Sodium Bicarbonate 1 amp IVP once; (50 mL); equals 50 mEq Route: IVP; Site: left kc6 subclavian; 16:15 Drug: Sodium Bicarbonate 1 amp IVP once; (50 mL); equals 50 mEq Route: IVP; Site: left kc6 subclavian; 16:16 Drug: Calcium Gluconate 1 grams IVPB once over 60 mins; (mix in NS 100 mL) Route: IVPB; kc6 Infused Over: 60 mins; Site: left subclavian; 16:18 Drug: Calcium Gluconate 1 grams IVPB once over 60 mins; (mix in NS 100 mL) Route: IVPB; kc6 Infused Over: 60 mins; Site: left subclavian; 16:18 Drug: Sodium Bicarbonate 1 amp IVP once; (50 mL); equals 50 mEq Route: IVP; Site: left kc6 subclavian; 16:20 Drug: Calcium Gluconate 2 grams IVPB once over 60 mins; (mix in NS 100 mL) Route: IVPB; kc6 Infused Over: 60 mins; Site: left subclavian; 16:21 Drug: EPINEPHrine 0.1mg/mL 1:10,000 1 mg IVP once Route: IVP; Site: left subclavian; kc6 16:21 Drug: Atropine 1 mg IVP once Route: IVP; Site: left subclavian; kc6 16:22 Drug: Sodium Bicarbonate 1 amp IVP once; (50 mL); equals 50 mEq Route: IVP; Site: left kc6 subclavian; 16:23 Drug: D50W 50 ml IVP once; (1 amp) Route: IVP; Site: left subclavian; kc6 16:23 Drug: Insulin Regular Human 10 units IVP once {Co-Signature: jorge (Jacqueline Gray RN).} kc6 Route: IVP; Site: left subclavian; Outcome: 16:28 Outcome Patient kc6 16:28 Patient : Time of 16:28 Pronounced by John Orourke MD 16:28 Condition: 18:58 Patient left the ED. ll1 Signatures: Namrata Esparza Lynsay, RN RN ll1 John Orourke MD MD sp3 Jamilah Davis RN RN kc6 Jacqueline Gray RN RN db Moises Stiles MD MD rt Jacqueline Gray RN db Corrections: (The following items were deleted from the chart) 16:38 15:56 Chief complaint: EMS states: they were toned out for a 78yr old female that was kc6 found down, unresponsive. pt was sinus arabella, placed on the pacers and intubated en route by EMS. kc6 16:38 15:56 Chief complaint: EMS states: they were toned out for a 78yr old female that was kc6 found down, unresponsive. pt was sinus arabella, placed on the pacers and intubated with a 7.5 ET tube, 24 at the teeth en route by EMS. pt was also started on 15mcg/kg/min of Levophed by EMS kc6 17:19 16:17 Cardiac rhythm is V fib kc6 kc6 19:13 15:56 Chief complaint: EMS states: they were toned out for a 78yr old female that was kc6 found down, unresponsive. pt was sinus arabella, placed on the pacers and intubated with a 7.5 ET tube, 24 at the teeth en route by EMS. pt was also started on 15mcg/kg/min of Levophed by EMS. BGL en route 130 kc6 19:15 16:00 CPR assessment: unresponsive, intubated, Ambu ventilation, compressions started kc6 kc6 19:15 16:05 Cardiac rhythm is kc6 kc6 19:15 16:17 Cardiac rhythm is V fib kc6 kc6 19:19 16:21 Cardiac rhythm is asystole kc6 kc6 19:19 16:23 Cardiac rhythm is bradycardia kc6 kc6 19:19 16:25 Cardiac rhythm is ventricular escape kc6 kc6 19:19 16:28 Cardiac rhythm is asystole kc6 kc6 19:19 16:18 Cardiac rhythm is bradycardia kc6 kc6
--- NOTE | 2023-07-29 17:37 | EDPHYS ---
Physician Documentation [facility] Name: Sangita Hendrix Age: 77 yrs Sex: Female : 1945 Arrival Date: 07/29/2023 Time: 15:12 Bed 3 Private MD: ED Physician John Orourke HPI: 07/28 17:23 This 77 yrs old Black Female presents to ER via EMS with complaints of Unresponsive. sp3 17:23 77-year-old female with a history of dementia, diabetes, CHF, chronic kidney disease sp3 stage III presents to the ED via EMS with initial chief complaint altered mental status and decreased responsiveness. EMS crew arrived to find patient unresponsive and intervened with endotracheal tube intubation, intraosseous vascular access, and in the process of transport initiated cardiac pacing due to bradycardia and Levophed IV through the intraosseous line. Please see continued discussion in MDM section for ER code flow. Review of systems, history and physical severely limited in this critical patient.. Historical: - Allergies: 15:56 Baclofen; kc6 15:56 [place]; kc6 15:56 [place]EN[place]ILL[place]; kc6 - Home Meds: 15:56 Unable to obtain [Active]; kc6 - PMHx: 15:56 BRADYCARDIA; CHF; Dementia; Diabetes - IDDM; GERD; hiatal hernia; osteomyelitis of kc6 right foot 2nd digit; Pacemaker; - PSHx: 15:56 back sx; hip FX repair; hysterectomy; kc6 - Immunization history:: Adult Immunizations unknown. - Infectious Disease History:: Denies. - Social history:: Smoking status: unknown. - Code Status:: Full code. ROS: 17:25 Unable to obtain ROS due to comatose state, patient is on ventilator, CPR, sp3 Exam: 17:25 Unable to obtain exam due to patient being intubated, CPR. sp3 Vital Signs: 16:24 BP 68 / 57; kc6 16:27 BP 84 / 26; kc6 MDM: 16:20 Patient medically screened. rt 17:26 Data reviewed: EMS record. ED course: EMS arrived into ER bed 3 and presented report. sp3 Per report, patient was intubated, Levophed was being given through the intraosseous line, and patient was being paced through their ZOLL monitor. After patient was moved onto our satellite project site monitor and defibrillator/pacer, patient was found to be in asystole. CPR was immediately started and code flow initiated. Please see code flowsheet for documentation of all medications and times. In short, epinephrine, atropine, sodium bicarbonate, calcium, and insulin/D50 were given to attempt resuscitation and treat possible hyperkalemia in this renal patient. Nonsterile left subclavian central venous access triple-lumen was placed by nv for emergency code access. Right femoral central venous access was also concurrently attempted by Dr. Stiles however the catheter was unable to be threaded. CPR was continued and cardiac motility on ultrasound continued to diminish. Ventricular fibrillation occurred once at which point 200 J were used to defibrillate patient unsuccessfully. Standard ACLS protocol was continued and patient eventually entered a ventricular escape at 20 bpm and subsequently asystole. Resuscitation attempts were ceased at 16:28. I spoke to family during the code as well as afterwards after time of was determined. Upon further discussion with EMS crew after the code was called, their ventricular capture on pacing was starting to fluctuate after unloading the patient and entering the hospital indicating impending cardiac arrest. . Administered Medications: 16:01 Drug: EPINEPHrine 0.1mg/mL 1:10,000 1 mg IVP once Route: IVP; Site: Other; kc6 16:02 Drug: Atropine 1 mg IVP once Route: IVP; Site: Other; kc6 16:03 Drug: Sodium Bicarbonate 1 amp IVP once; (50 mL); equals 50 mEq Route: IVP; Site: Other;kc6 16:03 Drug: Sodium Bicarbonate 1 amp IVP once; (50 mL); equals 50 mEq Route: IVP; Site: Other;kc6 16:04 Drug: EPINEPHrine 0.1mg/mL 1:10,000 1 mg IVP once Route: IVP; Site: Other; kc6 16:05 Drug: NS 0.9% 1000 ml IV at 1 bolus Per protocol; 1000 mL bolus Route: IV; Rate: 1 kc6 bolus; Site: Other; 16:08 Drug: EPINEPHrine 0.1mg/mL 1:10,000 1 mg IVP once Route: IVP; Site: Other; kc6 16:09 Drug: Sodium Bicarbonate 1 amp IVP once; (50 mL); equals 50 mEq Route: IVP; Site: Other;kc6 16:09 Drug: Sodium Bicarbonate 1 amp IVP once; (50 mL); equals 50 mEq Route: IVP; Site: Other;kc6 16:11 Drug: EPINEPHrine 0.1mg/mL 1:10,000 1 mg IVP once Route: IVP; Site: left subclavian; kc6 16:12 Drug: Atropine 1 mg IVP once Route: IVP; Site: left subclavian; kc6 16:15 Drug: EPINEPHrine 0.1mg/mL 1:10,000 1 mg IVP once Route: IVP; Site: left subclavian; kc6 16:15 Drug: Atropine 1 mg IVP once Route: IVP; Site: left subclavian; kc6 16:15 Drug: Sodium Bicarbonate 1 amp IVP once; (50 mL); equals 50 mEq Route: IVP; Site: left kc6 subclavian; 16:15 Drug: Sodium Bicarbonate 1 amp IVP once; (50 mL); equals 50 mEq Route: IVP; Site: left kc6 subclavian; 16:16 Drug: Calcium Gluconate 1 grams IVPB once over 60 mins; (mix in NS 100 mL) Route: IVPB; kc6 Infused Over: 60 mins; Site: left subclavian; 16:18 Drug: Calcium Gluconate 1 grams IVPB once over 60 mins; (mix in NS 100 mL) Route: IVPB; kc6 Infused Over: 60 mins; Site: left subclavian; 16:18 Drug: Sodium Bicarbonate 1 amp IVP once; (50 mL); equals 50 mEq Route: IVP; Site: left kc6 subclavian; 16:20 Drug: Calcium Gluconate 2 grams IVPB once over 60 mins; (mix in NS 100 mL) Route: IVPB; kc6 Infused Over: 60 mins; Site: left subclavian; 16:21 Drug: EPINEPHrine 0.1mg/mL 1:10,000 1 mg IVP once Route: IVP; Site: left subclavian; kc6 16:21 Drug: Atropine 1 mg IVP once Route: IVP; Site: left subclavian; kc6 16:22 Drug: Sodium Bicarbonate 1 amp IVP once; (50 mL); equals 50 mEq Route: IVP; Site: left kc6 subclavian; 16:23 Drug: D50W 50 ml IVP once; (1 amp) Route: IVP; Site: left subclavian; kc6 16:23 Drug: Insulin Regular Human 10 units IVP once {Co-Signature: db (Jacqueline Gray RN).} kc6 Route: IVP; Site: left subclavian; Disposition: 17:34 Critical Care:. sp3 17:34 . sp3 Disposition Summary: 07/29/23 17:36 Patient Notes: Pronouncing Physician: John Orourke sp3 Time of : 16:28 07/29/2023 sp3 Diagnosis - Cardiopulmonary arrest sp3 Critical care time excluding procedures: 17:34 Critical care time: Bedside Care: 20 minutes, Family Intervention: 10 minutes. Total sp3 time: 30 minutes Signatures: John Orourke MD MD sp3 Jamilah Davis RN RN kc6 Moises Stiles MD MD rt Jacqueline Gray RN db
[2023-07-29 19:20] VITALS: BP 84/26
== END 2023-07-29 18:58 ==
LOC: ER 15:55
DX: I46.9 Cardiac arrest, cause unspecified (principal); Z95.0 Presence of cardiac pacemaker
CPT/HCPCS: 92950 ×3; 99291; J0461 ×2; J0171 ×2; J7030 ×2